=== PATIENT | female | born 1935 | race Caucasian/White ===

== ENCOUNTER 2018-11-25 23:58 | Inpatient (IN) | payer MEDICARE, BC ==
[~2018-11-25] VITALS: Ht 144.8 cm; Wt 44.0 kg
[2018-11-26] VITALS (94 sets, daily range): BP systolic 64–162; BP diastolic 40–93; PULSE 80–127; RESP 13–37; Ht 144.8 cm; Wt 44.0 kg
[2018-11-26] MEDS ORDERED: ALBUTEROL HFA 8 GM INHALER INH PRN (01:00)
[2018-11-26] MEDS ORDERED: ACETAMINOPHEN 650MG/20.3ML CUP PO PRN (01:00)
[2018-11-26] MEDS: ALBUTEROL HFA 8 GM INHALER INH SCH ×6 (01:00→22:12)
[2018-11-26] MEDS ORDERED: LORAZEPAM 2 MG INJ IV PRN (01:00)
[2018-11-26] MEDS ORDERED: ONDANSETRON 4 MG INJ IV PRN (01:00)
[2018-11-26] MEDS ORDERED: morphine 2 MG INJ IV PRN (01:00)
[2018-11-26] MEDS ORDERED: NORepinephrine 8MG/250 ML (PMX 250 ML IV SCH (03:00)
[2018-11-26] MEDS ORDERED: VANCOMYCIN IV PER PHARMACY XX SCH (03:00)
[2018-11-26] MEDS: PROPOFOL 100 ML IV SCH ×2 (03:32→19:27)
[2018-11-26] MEDS: VANCOMYCIN 750 MG (PMX) 250 ML IVPB SCH (04:29)
[2018-11-26] MEDS: PIPER-TAZO 3.375 GM IV (PMX) 100 ML IVPB SCH ×3 (05:40→21:52)
[2018-11-26] MEDS: PANTOPRAZOLE 40 MG INJ IV SCH (05:40)
[2018-11-26] MEDS: METHYLPREDNISOLONE 125 MG INJ IV SCH ×3 (05:40→17:53)
[2018-11-26] MEDS ORDERED: SUCCINYLCHOLINE CHLORIDE 100 MG/5 ML SYG IV ONE (07:00)
[2018-11-26] MEDS ORDERED: ETOMIDATE 20 MG INJ ONE (07:00)
[2018-11-26] MEDS ORDERED: LIDOCAINE 1% (MPF) 5 ML VIAL SC ONE (08:00)
[2018-11-26] MEDS: ENOXAPARIN 40 MG/0.4 ML SYG SC SCH (09:40)
--- NOTE | 2018-11-26 09:54 | CONS ---
Assessment/Plan Assessment/Plan Hospital Course (Demo Recall) Acute on chronic hypoxemic/hypercapnic respiratory failure status post intubation currently on the ventilator Shock: Appears to be septic Pneumonia Pleural effusion History of mitral valve replacement currently functioning normally History of most likely heart block status post permanent pacemaker Encephalopathy Cachexia and malnutrition History of rheumatoid arthritis History of ovarian cancer stage IV Thyroid disorder Acute renal failure Diabetes Recommendations: Vent support to be continued to be managed as per pulmonary Antibiotic management as per internal medicine pulmonary and infectious disease consultants We will try to wean off the Levophed and switch to Maikol-Synephrine drip given her tachycardia We will also try to get more information regarding permanent pacemaker and have it interrogated it has not been done recently. Currently appears to be functioning normally on the telemetry though Diabetic management as per internal medicine GI and DVT prophylaxis recommended Continue with ICU care More than 40 minutes critical care time was for management treatment is critic ally ill patient excluding any procedures NAYLA SAUL MD [facility] Consultation Date/Type/Reason Admit Date/Time Nov 25, 2018 at 23:59 Date of Consultation: Nov 26, 2018 Type of Consult Cardiology Reason for Consultation shock Requesting Provider: SHAUN CHRISTENSEN DO Date/Time of Note DATE: 11/26/18 TIME: 09:44 Hx of Present Illness Interventional cardiology consultation note Chief complaint: Hypercapnic respiratory failure shock hypotension Reason for consult: Shock tachycardia status post permanent pacemaker history of valvular heart disease History of present illness: Thank you for this referral. History was obtained extensive review of the old chart discussion multiple physicians and staff. Patient herself is unable to provide any history to me This is a 3-year-old female who has been in and out of the hospital over the past 3 months. Patient was initially admitted to outside facilities with hypoxemic hypercapnic respiratory failure. She also was treated for pneumonia. She was transferred to [facility] but last night she was noted to be more lethargic and ABG is confirmed hypercapnic respiratory failure. Patient had to be intubated. Brought into the ICU. In the ICU but she was also become more hypotensive and required to be placed on Levophed drip. Patient has been tachycardic and appears to be ventricular paced. Patient is intubated on the vent on Levophed drip unable to provide history to me. Past medical history: history of valvular heart disease status post appear to mitral valve replacement in September 2016 per review of the old chart history of permanent pacemaker placement August 2017. At this point I do not have the information with [employer] history of pneumonia COPD obstructive sleep apnea history of rheumatoid arthritis of ovarian cancer and thyroid disorder Patient also with history of diabetes most recent hemoglobin A1c was 7.1 although family has denied any awareness of history of diabetes Allergies: No known drug allergies Medications were reviewed as per medical reconciliation sheet Family history: No history of early coronary artery disease Social history: Does not smoke or drink Review of system: Patient denies all others except for above-mentioned the best I could obtain. Past Medical History Medications Current Medications Ondansetron HCl (Zofran Inj) 4 mg Q6H PRN IV NAUSEA AND/OR VOMITING; Start 11/26/18 at 01:00 Albuterol (Ventolin Hfa) 4 puff Q4H RESP THERAPY INH Last administered on 11/26/18at 05:00; Admin Dose 4 PUFF; Start 11/26/18 at 01:00 Albuterol (Ventolin Hfa) 4 puff Q2H RESP THERAPY PRN INH SHORTNESS OF BREATH; Start 11/26/18 at 01:00 Methylprednisolone Sodium Succinate (Solu-Medrol) 60 mg Q6 IV Last administered on 11/26/18at 05:40; Admin Dose 60 MG; Start 11/26/18 at 06:00 Acetaminophen (Tylenol Liquid) 650 mg Q6H PRN PO PAIN LEVEL 1-3 OR FEVER; Start 11/26/18 at 01:00 Morphine Sulfate (morphine) 2 mg Q4H PRN IV PAIN LEVEL 7-10; Start 11/26/18 at 01:00 Lorazepam (Ativan) 1 mg Q2H PRN IV ANXIETY; Start 11/26/18 at 01:00 Pantoprazole (Protonix Iv) 40 mg DAILY@06 IV Last administered on 11/26/18at 05:40; Admin Dose 40 MG; Start 11/26/18 at 06:00 Enoxaparin Sodium (Lovenox) 40 mg DAILY SC Last administered on 11/26/18at 09:40; Admin Dose 40 MG; Start 11/26/18 at 09:00 Vancomycin HCl (Vanco Iv Per Pharmacy) VANCOMYCIN PER PHARMACY PER PROTOCOL XX ; Start 11/26/18 at 03:00 Piperacillin Sod/ Tazobactam Sod 100 ml @ 200 mls/hr Q8 IVPB Last administered on 11/26/18at 05:40; Admin Dose 200 MLS/HR; Start 11/26/18 at 06:00 Propofol 100 ml @ 1.32 mls/hr Q12H IV Last administered on 11/26/18at 03:32; Admin Dose 1.32 MLS/HR; Start 11/26/18 at 03:00 Vancomycin/Sodium Chloride 250 ml @ 125 mls/hr Q24H IVPB Last administered on 11/26/18at 04:29; Admin Dose 125 MLS/HR; Start 11/26/18 at 04:00 Sodium Chloride 1,000 ml @ 75 mls/hr [id number] IV ; Start 11/26/18 at 08:00 Norepinephrine 250 ml @ 1.875 mls/ hr TITRATE IV ; Start 11/26/18 at 09:00 Diagnostic Test (Pha) (Accu-Chek) 1 ea 02 XX ; Start 11/27/18 at 02:00 Insulin Aspart (Novolog Insulin Pen) NOVOLOG *MILD* ALGORI... Q4 SC ; Start 11/26/18 at 13:00 Allergies: Coded Allergies: No Known Allergy (Unverified , 11/23/18) Social History Smoking Status: Never smoker Exam/Review of Systems Vital Signs Vitals Vital Signs Date Temp Pulse Resp B/P (MAP) Pulse Ox O2 O2 Flow FiO2 Time Delivery Rate 11/26/18 125 08:00 11/26/18 28 98/66 (77) 96 06:30 11/26/18 100 05:02 11/26/18 97.8 04:00 Intake and Output 11/25/18 11/25/18 11/26/18 1515:00 23:00 07:00 IntakeIntake Total 193 ml OutputOutput Total 90 ml BalanceBalance 103 ml Exam Exam General: Elderly female cachectic looking appears to be older than stated age status post intubation on the vent HEENT: NC/AT. pupils are equal. round. NECK: NO JVD. no stridor. CV: RRR. systolic murmur; no gallop or rubs. PULM: no wheezing + rhonchi more on the right GI: SOFT, NT, ND, no rebound or guarding Extremity: trace B/L LE edema. no clubbing. neuro: Sedated unresponsive Psych: calm rectal: deferred : normal Chest x-ray shows ET and NG tubes in satisfactory position. Increase moderate large right pleural effusion, right middle lobe and basilar consolidation or atelectasis. Echocardiogram was personally reviewed which showed normal LV size ejection fraction of about 45-50% EKG was personally reviewed which shows ventricular paced rhythm Labs Result Diagram: 11/26/18 0120 11/26/18 0120 Results 24hrs Laboratory Tests Test 11/26/18 01:20 11/26/18 01:48 11/26/18 06:21 11/26/18 08:16 White Blood Count 9.8 # Red Blood Count 4.04 L Hemoglobin 11.6 L Hematocrit 39.3 Mean Corpuscular 97.3 Volume Mean Corpuscular 28.7 L Hemoglobin Mean Corpuscular 29.5 L Hemoglobin Concen t Red Cell 15.9 H Distribution Width Platelet Count 255 # Mean Platelet 10.8 H Volume Immature 0.400 Granulocytes % Neutrophils % Segmented 80 H Neutrophils % (Manual) Band Neutrophils 13 H % (Manual) Lymphocytes % Reactive 1 H Lymphocytes % (Manual) Monocytes % Monocytes % 6 (Manual) Eosinophils % Basophils % Nucleated Red 0.0 Blood Cells % Immature 0.040 H Granulocytes # Neutrophils # Neutrophils # 8.0 H (Manual) Band Neutrophils 1.2 H # Lymphocytes # Reactive 0.0 Lymphocytes # Monocytes # Monocytes # 0.5 (Manual) Eosinophils # Basophils # Nucleated Red Blood Cells # Platelet Estimate NORMAL Giant Platelets 2 H Polychromasia 3+ Poikilocytosis 2+ Anisocytosis 1+ Sodium Level 138 Potassium Level 5.4 H Chloride Level 91 L Carbon Dioxide 43 *H Level Anion Gap 4 L Blood Urea 30 H Nitrogen Creatinine 0.69 Est Glomerular Filtrat Rate mL/min Glucose Level 177 Hemoglobin A1c 6.8 H Calcium Level 8.4 Troponin I 0.176 *H 0.175 *H Blood Gas Blood arterial Specimen Source Arterial Blood 11/26/2018 2:05:3 Date Drawn 3 AM Arterial Blood pH 7.362 (Temp corrected) Arterial Blood 83.5 *H pCO2 (Temp correct) Arterial Blood 61.9 L pO2 (Temp corrected) Arterial Blood 46.3 *H HCO3 Arterial Blood 17.1 H Base Excess Arterial Blood 91.3 L Oxygen Saturation Jordi Test ACCEPTAB Arterial Blood Right Radial Gas Puncture Site Arterial 0.3 Blood Carboxyhemo globin Arterial Blood 0.2 Methemoglobin Blood Gas A-a O2 567.6 H Differential Oxyhemoglobin 90.8 L Percent Blood Gas 37.0 Temperature Blood Gas 24.0 Respiration Rate Blood Gas Actual 29 Respiration Rate Blood Gas VENT - AC Modality FiO2 100.0 Blood Gas Tidal 400.0 Volume Blood Gas Lázaro JETER RN Critical Value Read Back Blood Gas Notified Whom Blood Gas 11/26/2018 2:16:5 Notified Time 6 AM Lactic Acid Level 4.3 *H Total Bilirubin 0.9 Direct Bilirubin 0.00 Indirect 0.9 Bilirubin Aspartate Amino 32 Transf (AST/SGOT) Alanine 33 Aminotransferase (ALT/SGPT) Alkaline 88 Phosphatase Total Protein 5.5 L Albumin 2.6 L Test 11/26/18 09:42 Bedside Glucose 100 Medications Medications Current Medications Ondansetron HCl (Zofran Inj) 4 mg Q6H PRN IV NAUSEA AND/OR VOMITING; Start 11/26/18 at 01:00 Albuterol (Ventolin Hfa) 4 puff Q4H RESP THERAPY INH Last administered on 11/26/18at 05:00; Admin Dose 4 PUFF; Start 11/26/18 at 01:00 Albuterol (Ventolin Hfa) 4 puff Q2H RESP THERAPY PRN INH SHORTNESS OF BREATH; Start 11/26/18 at 01:00 Methylprednisolone Sodium Succinate (Solu-Medrol) 60 mg Q6 IV Last administered on 11/26/18at 05:40; Admin Dose 60 MG; Start 11/26/18 at 06:00 Acetaminophen (Tylenol Liquid) 650 mg Q6H PRN PO PAIN LEVEL 1-3 OR FEVER; Start 11/26/18 at 01:00 Morphine Sulfate (morphine) 2 mg Q4H PRN IV PAIN LEVEL 7-10; Start 11/26/18 at 01:00 Lorazepam (Ativan) 1 mg Q2H PRN IV ANXIETY; Start 11/26/18 at 01:00 Pantoprazole (Protonix Iv) 40 mg DAILY@06 IV Last administered on 11/26/18at 05:40; Admin Dose 40 MG; Start 11/26/18 at 06:00 Enoxaparin Sodium (Lovenox) 40 mg DAILY SC Last administered on 11/26/18at 09:40; Admin Dose 40 MG; Start 11/26/18 at 09:00 Vancomycin HCl (Vanco Iv Per Pharmacy) VANCOMYCIN PER PHARMACY PER PROTOCOL XX ; Start 11/26/18 at 03:00 Piperacillin Sod/ Tazobactam Sod 100 ml @ 200 mls/hr Q8 IVPB Last administered on 11/26/18at 05:40; Admin Dose 200 MLS/HR; Start 11/26/18 at 06:00 Propofol 100 ml @ 1.32 mls/hr Q12H IV Last administered on 11/26/18at 03:32; Admin Dose 1.32 MLS/HR; Start 11/26/18 at 03:00 Vancomycin/Sodium Chloride 250 ml @ 125 mls/hr Q24H IVPB Last administered on 11/26/18at 04:29; Admin Dose 125 MLS/HR; Start 11/26/18 at 04:00 Sodium Chloride 1,000 ml @ 75 mls/hr [id number] IV ; Start 11/26/18 at 08:00 Norepinephrine 250 ml @ 1.875 mls/ hr TITRATE IV ; Start 11/26/18 at 09:00 Diagnostic Test (Pha) (Accu-Chek) 1 ea 02 XX ; Start 11/27/18 at 02:00 Insulin Aspart (Novolog Insulin Pen) NOVOLOG *MILD* ALGORI... Q4 SC ; Start 11/26/18 at 13:00 NAYLA SAUL MD Nov 26, 2018 09:54
[2018-11-26] MEDS: NORepinephrine 8MG/250 ML (PMX 250 ML IV SCH (10:46)
[2018-11-26] MEDS: SOD CHLORIDE 0.9% 1,000 ML IV SCH ×2 (10:47→21:20)
[2018-11-26] MEDS: PHENYLephrine 40 MG in DEXTROSE 5% 246 ML IV SCH ×2 (11:21→17:39)
[2018-11-26] MEDS ORDERED: LACTATED RINGER'S 1,000 ML IV ONE (12:00)
[2018-11-26] MEDS: BALSAM PERU/CASTOR OIL 60 GM TUBE TOP SCH ×2 (12:30→21:48)
--- NOTE | 2018-11-26 12:37 | HP ---
DATE OF ADMISSION: 11/25/2018 CHIEF COMPLAINT: Septic shock, respiratory failure. HISTORY OF PRESENT ILLNESS: This is an 83-year-old female with a past medical history of coronary ar radha disease, history of CHF, history of mitral valve replacement, pacemaker placement, history of sl eep apnea, history of ovarian cancer stage IV, who initially presented to an outside hospital with re spiratory distress and shortness of breath. The patient at the outside facility was diagnosed with p neumonia. The patient at that time was on BiPAP. The patient was eventually stabilized at [facility] and then transferred to [facility] for continued care as patient had significa nt decline in her premorbid state. While at [facility], the patient was being seen by pulmonary for hypercapnic hypoxemic respiratory failure. The patient was also on antibiotic therapy for pneumonia. The patient was noted to be stable until last 12 to 14 hours when there was a sudden change in condition and patient became hypotensive, went into further respiratory distress. The pat ient was then subsequently transferred to intensive care unit at [facility], was in tubated, placed on pressor support, IV fluids and continued on broad spectrum antibiotics. Upon my evaluation of the patient at this time, he is currently intubated, obtunded. There have been no reports of any hemoptysis, hematemesis or hematochezia. PAST MEDICAL HISTORY: As stated above, history of coronary artery disease, history of CHF, history o f ovarian cancer, history of obstructive sleep apnea. PAST SURGICAL HISTORY: Status post pacemaker placement, status post valve replacement, status post o varian surgeries. FAMILY HISTORY: Noncontributory. ALLERGIES: NO KNOWN DRUG ALLERGIES. MEDICATIONS: The patient's medications have been reviewed. REVIEW OF SYSTEMS: Unable to do adequate review of systems. The patient is obtunded. Pertinent pos itives stated in HPI, as obtained by reviewing medical records, speaking to hospital staff, otherwise negative. PHYSICAL EXAMINATION: VITAL SIGNS: Blood pressure is 98/66, respiratory rate 28, pulse 111, temperature 98.6. HEENT: Head is normocephalic. Pupils react to light. NECK: Supple. HEART: Tachycardic. LUNGS: Show diminished breath sounds at the base. ABDOMEN: Soft, nontender to palpation. EXTREMITIES: Negative for clubbing, cyanosis. Trace edema. DERMATOLOGIC: No rashes. MUSCULOSKELETAL: No joint effusions. NEUROLOGIC: The patient is obtunded. LABORATORY DATA: Shows sodium 138, potassium 5.4, chloride 91, bicarbonate 43, BUN 30, creatinine 0. 69. Troponin 0.176. The patient's ABG was reviewed. The patient's pCO2 of 83, pH 7.36, bicarbonate of 46. White count 9.8, hemoglobin 11.6, platelet count 255. IMAGING STUDIES: Including chest x-ray was reviewed. ASSESSMENT AND PLAN: This is an 83-year-old female who presents with: 1. Septic shock, underlying source is felt to be secondary to pneumonia. Will rule out other possib ilities including urinary, questionable wounds. Plan is to do a full evaluation. We will check bloo d cultures, urine cultures, check procalcitonin level, lactic acid level. We will continue the patie nt on broad spectrum antibiotics, IV fluids, pressor support to maintain MAP of 65. We will place an ID consult for evaluation. 2. Ventilator-dependent respiratory failure. Vent settings and ABG was reviewed. Continue to monit or. Will follow up with pulmonary. Adjust vent settings as needed. 3. Nonoliguric acute kidney injury with previously normal baseline creatinine. Etiology is secondar y to hemodynamics. Will check UA with microanalysis, urine electrolytes. Continue IV fluids, monito r. 4. Hyperkalemia. Etiology is likely secondary to acute kidney injury, continue IV hydration and mon itor potassium levels closely. 5. Mixed acid base disorder. The patient has a respiratory acidosis and metabolic alkalosis. The p atient's ABG was reviewed. Will continue to monitor. Consider adjusting vent settings. Will repeat ABG levels. 6. Anemia. Monitor hemoglobin and hematocrit levels. 7. Mineral bone disorder. Monitor calcium and phosphorus levels. 8. Elevated troponin. Etiology may be secondary to demand ischemia versus non-ST elevation myocardi al infarction. We will continue to monitor serial troponins. Consider 2D echo. Place a cardiology consult for evaluation. 9. History of sleep apnea. Continue to monitor. 10. History of coronary artery disease. Continue medical management. 11. History of congestive heart failure. Continue current treatment plan. 12. History of arrhythmia, status post pacemaker placement. Continue to monitor. 13. History of mitral valve replacement. 14. Diabetes. Continue Accu-Cheks and sliding scale. 15. History of rheumatoid arthritis. 16. History of ovarian cancer stage IV, currently in remission. The patient is status post chemothe rapy and major debulking surgeries. 17. Hypothyroidism. Continue Synthroid. 18. Gastrointestinal and deep venous thrombosis prophylaxis. Please note I spent over 30 minutes of critical care time with this patient. Dictated By: SHAUN CHRISTENSEN DO NR/NTS Conf#: [id number] DID#: [id number] CC: STEVIE REN MD;*EndCC*
[2018-11-26] MEDS: INSULIN ASPART [NOVOLOG] 3 ML PEN SC SCH ×3 (13:00→21:51)
--- NOTE | 2018-11-26 15:25 | CONS ---
DATE OF ADMISSION: 11/25/2018 DATE OF CONSULTATION: 11/26/2018 TYPE OF CONSULTATION: Infectious disease. REASON FOR CONSULTATION: Antibiotic management. HISTORY OF PRESENT ILLNESS: Savanah Riojas is an 83-year-old female who is unable to provide any hist ory by herself. She has been intermittently in the hospital over the last 3 months. She was initial ly admitted to outside facilities. She was treated for pneumonia. She was transferred to [facility] but last night she was noted to be more lethargic and ABG confirmed hypercapnic respiratory eric lure. The patient had to be intubated, brought to the intensive care unit. She is more hypotensive requiring Levophed drip. She has been tachycardic, appears to be ventricularly paced, so she is intu bated on Levophed. PAST MEDICAL HISTORY: Includes: 1. Valvular heart disease, status post mitral valve replacement in September 2016. Also, history of permanent pacemaker placement 08/2017. She had a history of pneumonia, chronic obstructive pulmonary disease, obstructive sleep apnea, history of rheumatoid arthritis, history of ovarian cancer and als o thyroid disease. She also has a history of diabetes. Her most recent A1c was 7.1. There is no [facility] history of diabetes. PAST MEDICAL HISTORY: Operations as outlined. FAMILY HISTORY: Noncontributory. SOCIAL HISTORY: She does not smoke, drink or abuse drugs. ALLERGIES: NONE TO PENICILLIN, SULFA OR FOODS. PHYSICAL EXAMINATION: GENERAL: The patient is an elderly appearing female who is cachectic, looks older than her stated ag e, status post intubation on a ventilator. SKIN: Without generalized rash. HEENT: Within normal limits. NECK: Supple. LYMPH NODES: None palpable. CHEST: Decreased breath sounds at the bases with occasional rhonchi. HEART: Without murmur or gallop. ABDOMEN: Soft, nontender, without organosplenomegaly or masses. EXTREMITIES: Bilateral lower extremity edema. NEUROLOGIC: The patient is sedated. RECTAL/GENITAL: Deferred. As noted, the patient is sedated on a respirator. Chest x-ray shows an E T tube and NG tube in satisfactory position. She has some moderate large right pleural effusion, rig ht middle lobe and basilar consolidation or atelectasis. Echocardiogram shows an ejection fraction of 45% to 50%. Her white count today is 9.8, H and H 11.6/ 39.3, platelet count 255,000. BUN and creatinine 30/0.69. Her CO2 is 43, so she is alkalotic, potas sium 5.4, sodium 138, chloride 91. She has 80% neutrophils, 13% bands with a white count of 9.8. Sh ella is on vancomycin and Zosyn to which I concur. She has blood cultures pending and urine cultures pe nding. I will dictate my findings to Dr. Agrawal and Dr. Anguiano. Dictated By: SHIRIN PHOENIX MD, JD/NTS Conf#: [id number] DID#: [id number] CC: STEVIE REN MD;*End*
--- NOTE | 2018-11-26 17:34 | RADRPT ---
Vent Rate: 127 bpm RR Interval: 0 msec TN Interval: 146 msec QRS Duration: 140 msec QT Interval: 356 msec QTC Interval: 517 msec P-R-T [place]: 0 - -79 - 91 degrees Electronic ventricular pacemaker Electronically Signed By: David Mattson
[2018-11-27] VITALS (99 sets, daily range): BP systolic 59–136; BP diastolic 38–81; PULSE 64–84; RESP 13–30
[2018-11-27] MEDS: METHYLPREDNISOLONE 125 MG INJ IV SCH ×4 (00:44→17:19)
[2018-11-27] MEDS: INSULIN ASPART [NOVOLOG] 3 ML PEN SC SCH ×6 (00:45→21:26)
[2018-11-27] MEDS: ALBUTEROL HFA 8 GM INHALER INH SCH ×6 (01:04→21:28)
[2018-11-27] MEDS: ACCU-CHEK XX SCH (02:00)
[2018-11-27] MEDS: SOD CHLORIDE 0.9% 1,000 ML IV SCH ×2 (03:09→17:19)
[2018-11-27] MEDS: PHENYLephrine 40 MG in DEXTROSE 5% 246 ML IV SCH ×2 (03:11→14:56)
[2018-11-27] MEDS: PIPER-TAZO 3.375 GM IV (PMX) 100 ML IVPB SCH ×3 (05:39→21:41)
[2018-11-27] MEDS: VANCOMYCIN 750 MG (PMX) 250 ML IVPB SCH (05:39)
[2018-11-27] MEDS: PROPOFOL 100 ML IV SCH ×3 (05:40→21:34)
[2018-11-27] MEDS: PANTOPRAZOLE 40 MG INJ IV SCH (05:40)
--- NOTE | 2018-11-27 06:57 | CONS ---
DATE OF ADMISSION: 11/25/2018 DATE OF CONSULTATION: REASON FOR CONSULTATION: Ventilator management. Thank you, Dr. Agrawal, for this consultation. HISTORY OF PRESENT ILLNESS: This is an unfortunate 83-year-old lady with advanced COPD, chronic hype rcapnic respiratory failure who was being managed at [facility]. Had worsening ment ation, respiratory distress requiring transfer to intensive care unit where she was subsequently intu bated, commenced on vasopressor support. PAST MEDICAL HISTORY: Mitral valve replacement, history of heart block and now with pacemaker, cache destiney, malnutrition, rheumatoid arthritis, stage IV ovarian CA. MEDICATIONS: Per chart. ALLERGIES: NONE. SOCIAL HISTORY: She is a nonsmoker. No alcohol and no history of drug use. FAMILY HISTORY: Noncontributory. REVIEW OF SYSTEMS: A 12-point review of systems currently unable to perform. PHYSICAL EXAMINATION: GENERAL: Thin lady, orally intubated on mechanical ventilation, appears comfortable at rest. VITAL SIGNS: Temperature 98, pulse is 125, blood pressure 98/66, O2 saturation 96%, FiO2 of 100%. NECK: Supple. No JVD or lymphadenopathy. CARDIAC: S1, S2. No added sounds or murmurs. CHEST: Diminished air entry bilaterally. ABDOMEN: Soft, nontender. No guarding or rebound. EXTREMITIES: No cyanosis, clubbing, or edema. NEUROLOGIC: Generalized weakness. LABORATORY DATA: White count 9.8, hemoglobin 11.6, platelets 225,000. BUN 30, creatinine 0.96. DIAGNOSTIC DATA: Chest x-ray shows moderate right pleural effusion versus atelectasis. IMPRESSION: 1. Owkqj-[id number]-pclinus hypercapnic respiratory failure. 2. Likely healthcare-associated pneumonia and loculated effusion. 3. History of mitral valve replacement. 4. Severe sepsis. PLAN: 1. Continue vasopressors. 2. Decrease O2 as tolerated. 3. Decrease FIO2. 4. Antibiotics. 5. CT chest, noncontrast. 6. DVT and GI prophylaxis. Dictated By: JESS SAUCEDO MD SV/NTS Conf#: [id number] DID#: [id number] CC: STEVIE REN MD;*EndCC*
--- NOTE | 2018-11-27 07:46 | CONS ---
Consult Date/Type/Reason Admit Date/Time Nov 25, 2018 at 23:59 Initial Consult Date 11/26/18 Type of Consultation: cv Requesting Provider: SHAUN CHRISTENSEN DO Date/Time of Note DATE: 11/27/18 TIME: 07:42 Subjective Interventional cardiology follow-up progress note Subjective: Case discussed with staff and telemetry was reviewed. Patient remains in sinus rhythm with ventricular pacing. Patient nonverbal status post intubation underwent She continues to be hypotensive and is still on Maikol-Synephrine drip. Currently down to 60 mics She is still on the vent currently on 60% oxygen Objective: General: Elderly female cachectic looking appears to be older than stated age status post intubation on the vent HEENT: NC/AT. pupils are equal. round. NECK: NO JVD. no stridor. CV: RRR. systolic murmur; no gallop or rubs. PULM: no wheezing + rhonchi more on the right GI: SOFT, NT, ND, no rebound or guarding Extremity: trace B/L LE edema. no clubbing. neuro: Sedated Psych: calm rectal: deferred : normal Chest x-ray shows ET and NG tubes in satisfactory position. Increase moderate large right pleural effusion, right middle lobe and basilar consolidation or atelectasis. Echocardiogram was personally reviewed which showed normal LV size ejection fraction of about 45-50% EKG was personally reviewed which shows ventricular paced rhythm Objective Vitals Vital Signs Date Temp Pulse Resp B/P (MAP) Pulse Ox O2 O2 Flow FiO2 Time Delivery Rate 11/27/18 74 14 64/43 (50) 100 06:45 11/27/18 Mechanical 06:00 Ventilator 11/27/18 60 05:47 11/27/18 98.3 04:00 Intake and Output 11/26/18 11/26/18 11/27/18 1515:00 23:00 07:00 IntakeIntake Total 1605.12 ml 1065.437 ml 870.172 ml OutputOutput Total 245 ml 285 ml 210 ml BalanceBalance 1360.12 ml 780.437 ml 660.172 ml Results/Medications Result Diagram: 11/27/18 0430 11/27/18 0430 Results 24 hrs Laboratory Tests Test 11/26/18 08:16 11/26/18 09:42 11/26/18 11:30 11/26/18 11:43 Lactic Acid Level 4.3 *H Total Bilirubin 0.9 Direct Bilirubin 0.00 Indirect 0.9 Bilirubin Aspartate Amino 32 Transf (AST/SGOT) Alanine 33 Aminotransferase (ALT/SGPT) Alkaline 88 Phosphatase Total Protein 5.5 L Albumin 2.6 L Bedside Glucose 100 Blood Gas Blood arterial Specimen Source Arterial Blood 11/26/2018 12:00: Date Drawn 26 PM Arterial Blood pH 7.580 *H (Temp corrected) Arterial Blood 45.6 H pCO2 (Temp correct) Arterial Blood 66.6 L pO2 (Temp corrected) Arterial Blood 41.8 *H HCO3 Arterial Blood 17.9 H Base Excess Arterial Blood 95.5 Oxygen Saturation Jordi Test ACCEPTAB Arterial Blood Left Radial Gas Puncture Site Arterial 0.3 Blood Carboxyhemo globin Arterial Blood 0.1 Methemoglobin Blood Gas A-a O2 311.0 H Differential Oxyhemoglobin 95.1 Percent Blood Gas 37.0 Temperature Blood Gas 20.0 Respiration Rate Blood Gas Actual 20 Respiration Rate Blood Gas VENT - AC Modality FiO2 60.0 Blood Gas Tidal 450.0 Volume Blood Gas Low 5.0 PEEP Setting Blood Gas Sergoi Wood RN Critical Value Read Back Blood Gas Notified Whom Blood Gas 11/26/2018 12:12: Notified Time 32 PM Urine Color CRISTAL Urine Clarity CLOUDY A Urine pH 5.0 Urine Specific 1.024 [place] Urine Ketones NEGATIVE Urine Nitrite NEGATIVE Urine Bilirubin NEGATIVE Urine NEGATIVE Urobilinogen Urine Leukocyte 2+ H Esterase Urine Microscopic 20 H RBC Urine Microscopic > 182 H WBC Urine Bacteria FEW A Urine Yeast MANY A (Budding) Urine Hemoglobin 2+ H Urine Random 73.25 Creatinine Urine Random < 13 L Sodium Urine Glucose NEGATIVE Urine Total 141.0 H Protein Test 11/26/18 13:02 11/26/18 15:10 11/26/18 17:52 11/26/18 21:46 Bedside Glucose 97 141 153 Sodium Level 137 Potassium Level 3.9 Chloride Level 94 L Carbon Dioxide 38 H Level Anion Gap 5 Blood Urea 30 H Nitrogen Creatinine 0.70 Est Glomerular Filtrat Rate mL/min Glucose Level 126 # Calcium Level 7.9 L Total Bilirubin 0.8 Direct Bilirubin 0.00 Indirect 0.8 Bilirubin Aspartate Amino 22 Transf (AST/SGOT) Alanine 29 Aminotransferase (ALT/SGPT) Alkaline 75 Phosphatase Total Protein 4.5 #L Albumin 2.2 L Globulin 2.30 Albumin/Globulin 0.95 Ratio Test 11/27/18 00:45 11/27/18 04:30 11/27/18 05:52 Bedside Glucose 130 186 White Blood Count 10.3 Red Blood Count 3.00 #L Hemoglobin 8.4 #L Hematocrit 27.3 #L Mean Corpuscular 91.0 Volume Mean Corpuscular 28.0 L Hemoglobin Mean Corpuscular 30.8 L Hemoglobin Concen t Red Cell 17.0 H Distribution Width Platelet Count 243 Mean Platelet 10.7 H Volume Immature 0.500 H Granulocytes % Neutrophils % Lymphocytes % Monocytes % Eosinophils % Basophils % Nucleated Red 0.0 Blood Cells % Immature 0.050 H Granulocytes # Neutrophils # Lymphocytes # Monocytes # Eosinophils # Basophils # Nucleated Red Blood Cells # Sodium Level 138 Potassium Level 3.3 L Chloride Level 97 Carbon Dioxide 38 H Level Anion Gap 3 L Blood Urea 27 H Nitrogen Creatinine 0.65 Est Glomerular Filtrat Rate mL/min Glucose Level 136 Calcium Level 7.6 L Phosphorus Level 2.9 Magnesium Level 2.1 Medications Current Medications Ondansetron HCl (Zofran Inj) 4 mg Q6H PRN IV NAUSEA AND/OR VOMITING; Start 11/26/18 at 01:00 Albuterol (Ventolin Hfa) 4 puff Q4H RESP THERAPY INH Last administered on 11/27/18at 05:46; Admin Dose 4 PUFF; Start 11/26/18 at 01:00 Albuterol (Ventolin Hfa) 4 puff Q2H RESP THERAPY PRN INH SHORTNESS OF BREATH; Start 11/26/18 at 01:00 Methylprednisolone Sodium Succinate (Solu-Medrol) 60 mg Q6 IV Last administered on 11/27/18at 05:40; Admin Dose 60 MG; Start 11/26/18 at 06:00 Acetaminophen (Tylenol Liquid) 650 mg Q6H PRN PO PAIN LEVEL 1-3 OR FEVER; Start 11/26/18 at 01:00 Morphine Sulfate (morphine) 2 mg Q4H PRN IV PAIN LEVEL 7-10; Start 11/26/18 at 01:00 Lorazepam (Ativan) 1 mg Q2H PRN IV ANXIETY; Start 11/26/18 at 01:00 Pantoprazole (Protonix Iv) 40 mg DAILY@06 IV Last administered on 11/27/18at 05:40; Admin Dose 40 MG; Start 11/26/18 at 06:00 Enoxaparin Sodium (Lovenox) 40 mg DAILY SC Last administered on 11/26/18at 09:40 ; Admin Dose 40 MG; Start 11/26/18 at 09:00 Vancomycin HCl (Vanco Iv Per Pharmacy) VANCOMYCIN PER PHARMACY PER PROTOCOL XX ; Start 11/26/18 at 03:00 Piperacillin Sod/ Tazobactam Sod 100 ml @ 200 mls/hr Q8 IVPB Last administered on 11/27/18at 05:39; Admin Dose 200 MLS/HR; Start 11/26/18 at 06:00 Propofol 100 ml @ 1.32 mls/hr Q12H IV Last administered on 11/27/18at 05:40; Admin Dose 2.112 MLS/HR; Start 11/26/18 at 03:00 Vancomycin/Sodium Chloride 250 ml @ 125 mls/hr Q24H IVPB Last administered on 11/27/18at 05:39; Admin Dose 125 MLS/HR; Start 11/26/18 at 04:00 Sodium Chloride 1,000 ml @ 75 mls/hr [id number] IV Last administered on 11/27/18at 03:09; Admin Dose 75 MLS/HR; Start 11/26/18 at 08:00 Norepinephrine 250 ml @ 1.875 mls/ hr TITRATE IV Last administered on 11/26/18at 10:46; Admin Dose 37.5 MLS/HR; Start 11/26/18 at 09:00 Diagnostic Test (Pha) (Accu-Chek) 1 ea 02 XX ; Start 11/27/18 at 02:00 Insulin Aspart (Novolog Insulin Pen) NOVOLOG *MILD* ALGORI... Q4 SC Last administered on 11/27/18at 05:57; Admin Dose 2 UNIT; Start 11/26/18 at 13:00 Phenylephrine HCl 40 mg/Dextrose 250 ml @ 37.5 mls/hr TITRATE IV Last administered on 11/27/18at 03:11; Admin Dose 15 MLS/HR; Start 11/26/18 at 11:00 Fentanyl 100 ml @ 2.5 mls/hr TITRATE IV ; Start 11/26/18 at 13:00 IV Flush (NS 10 ml) 10 ml PRN PRN IV IV PROTOCOL; Start 11/26/18 at 15:00 Assessment/Plan Hospital Course (Demo Recall) Acute on chronic hypoxemic/hypercapnic respiratory failure status post intubation currently on the ventilator Shock: Appears to be septic Pneumonia Pleural effusion History of mitral valve replacement currently functioning normally History of most likely heart block status post permanent pacemaker ([employer]) Encephalopathy Cachexia and malnutrition History of rheumatoid arthritis History of ovarian cancer stage IV Thyroid disorder Acute renal failure Diabetes anemia Recommendations: Vent support to be continued to be managed as per pulmonary Antibiotic management as per internal medicine pulmonary and infectious disease consultants cont Maikol-Synephrine drip and titrate down as tolerated. REPLACE Lytes prn Diabetic management as per internal medicine GI and DVT prophylaxis Continue with ICU care NAYLA SAUL MD [facility] NAYLA SAUL MD Nov 27, 2018 07:46
[2018-11-27] MEDS ORDERED: POTASSIUM CHLORIDE 20 MEQ POWDER FOR ORAL SOLN GTB ONE ×2 (08:00)
--- NOTE | 2018-11-27 08:01 | PN ---
DATE: 11/27/2018 SUBJECTIVE: The patient remains critically ill on pressor support. On IV fluids. Urinary output hung s been marginal. No other acute events noted. No hemoptysis, hematemesis or hematochezia. OBJECTIVE: VITAL SIGNS: Blood pressure 64/43, respirations 14, pulse 74, temperature 98.6. I's and O's were re viewed. HEENT: Head is normocephalic. NECK: Supple. HEART: Regular rate. LUNGS: Show diminished breath sounds at the base. ABDOMEN: Soft, nontender to palpation without rebound or guarding. EXTREMITIES: Negative for clubbing, cyanosis. Trace edema. DERMATOLOGIC: No rashes. MUSCULOSKELETAL: No joint effusion. NEUROLOGIC: No change in exam. MEDICATIONS: The patient's medications have been reviewed. MICROBIOLOGY: Reviewed. LABORATORY DATA: Shows sodium 138, potassium 3.3, BUN 27, creatinine 0.65. White count 10.3, hemogl obin 8.4, platelet count 243. Urinalysis shows FENa less than 1%, protein creatinine ratio approxima tely 2 grams per gram of creatinine. ABG was reviewed. IMAGING STUDIES: Chest x-ray was reviewed, shows moderate right pleural effusion, right lower base c onsolidation atelectasis. ASSESSMENT AND PLAN: 1. Septic shock, etiology is felt to be secondary to pneumonia. Other sources include possible urin jeannie, questionable wounds. The patient currently is in critical condition. The plan is to continue m edical management. Continue pressor support, maintain MAP of 65. Continue IV fluids, broad spectrum antibiotics. Wean off pressors as tolerated. We will follow up procalcitonin level. 2. Ventilator dependent respiratory failure. Vent settings and ABG was reviewed. Continue to monit or. Followup with pulmonary. 3. Nonoliguric acute kidney injury. Etiology of acute kidney injury is secondary to hemodynamics. Urinalysis was reviewed. The patient's urine electrolytes were reviewed. The patient is noted to hung ve a FENa less than 1%, which can be seen in the setting of sepsis and septic acute kidney injury. W e will continue to monitor. 4. Hyperkalemia, resolved. Continue to monitor. 5. Mixed acid base disorder. The patient has a metabolic alkalosis and a respiratory alkalosis. We will continue to monitor. Vent settings have been adjusted. 6. Anemia. Monitor hemoglobin and hematocrit levels. 7. Elevated troponin. Etiology may be non-ST elevation myocardial infarction type 2. Continue to m onitor. Follow up with cardiology. 8. History of sleep apnea. Continue to monitor. 9. Coronary artery disease. Continue medical management. 10. History of congestive heart failure. The patient is currently hypovolemic. Continue to monitor . 11. History of arrhythmia, status post pacemaker. Continue current treatment plan. 12. History of mitral valve replacement. 13. Diabetes. Continue current insulin regimen. 14. History of ovarian cancer stage IV, currently in remission. Continue to observe. 15. Hypothyroidism. Continue Synthroid. 16. History of rheumatoid arthritis. 17. Gastrointestinal and deep vein thrombosis prophylaxis. Please note I spent over 30 minutes of critical care time with this patient. Dictated By: SHAUN CHRISTENSEN DO NR/NTS Conf#: [id number] DID#: [id number] CC: STEVIE REN MD; JESS SAUCEDO MD;*End*
[2018-11-27] MEDS: ENOXAPARIN 40 MG/0.4 ML SYG SC SCH (08:23)
[2018-11-27] MEDS: BALSAM PERU/CASTOR OIL 60 GM TUBE TOP SCH ×2 (08:31→21:33)
--- NOTE | 2018-11-27 11:31 | CONS ---
Consult Date/Type/Reason Admit Date/Time Nov 25, 2018 at 23:59 Initial Consult Date 11/26/18 Type of Consult Pulmonary Requesting Provider: SHAUN CHRISTENSEN DO Date/Time of Note DATE: 11/27/18 TIME: 11:29 Subjective Patient intubated sedated appears comfortable at rest. Intermittent agitation off sedation. Objective Vital Signs Date Temp Pulse Resp B/P (MAP) Pulse Ox O2 O2 Flow FiO2 Time Delivery Rate 11/27/18 75 14 125/73 09:30 (90) 11/27/18 100 60 09:00 11/27/18 Mechanical 09:00 Ventilator 11/27/18 98.3 04:00 Intake and Output 11/26/18 11/26/18 11/27/18 1515:00 23:00 07:00 IntakeIntake Total 1605.12 ml 1065.437 ml 1070.172 ml OutputOutput Total 245 ml 285 ml 210 ml BalanceBalance 1360.12 ml 780.437 ml 860.172 ml Exam PHYSICAL EXAMINATION: GENERAL: Thin lady, orally intubated on mechanical ventilation, appears comfortable at rest. VITAL SIGNS: NECK: Supple. No JVD or lymphadenopathy. CARDIAC: S1, S2. No added sounds or murmurs. CHEST: Diminished air entry bilaterally. ABDOMEN: Soft, nontender. No guarding or rebound. EXTREMITIES: No cyanosis, clubbing, or edema. NEUROLOGIC: Generalized weakness. Vent Setting Ventilator Support Mode: AC Fraction of Inspired Oxygen pe: 60 Positive End Expiratory Pressu: 5.0 Results/Medications Result Diagram: 11/27/18 0430 11/27/18 0430 Results 24 hrs Laboratory Tests Test 11/26/18 11:30 11/26/18 11:43 11/26/18 13:02 11/26/18 15:10 Blood Gas Blood arterial Specimen Source Arterial Blood 11/26/2018 12:00: Date Drawn 26 PM Arterial Blood pH 7.580 *H (Temp corrected) Arterial Blood 45.6 H pCO2 (Temp correct) Arterial Blood 66.6 L pO2 (Temp corrected) Arterial Blood 41.8 *H HCO3 Arterial Blood 17.9 H Base Excess Arterial Blood 95.5 Oxygen Saturation Jordi Test ACCEPTAB Arterial Blood Left Radial Gas Puncture Site Arterial 0.3 Blood Carboxyhemo globin Arterial Blood 0.1 Methemoglobin Blood Gas A-a O2 311.0 H Differential Oxyhemoglobin 95.1 Percent Blood Gas 37.0 Temperature Blood Gas 20.0 Respiration Rate Blood Gas Actual 20 Respiration Rate Blood Gas VENT - AC Modality FiO2 60.0 Blood Gas Tidal 450.0 Volume Blood Gas Low 5.0 PEEP Setting Blood Gas Sergio Wood RN Critical Value Read Back Blood Gas TM Notified Whom Blood Gas 11/26/2018 12:12: Notified Time 32 PM Urine Color CRISTAL Urine Clarity CLOUDY A Urine pH 5.0 Urine Specific 1.024 [place] Urine Ketones NEGATIVE Urine Nitrite NEGATIVE Urine Bilirubin NEGATIVE Urine NEGATIVE Urobilinogen Urine Leukocyte 2+ H Esterase Urine Microscopic 20 H RBC Urine Microscopic > 182 H WBC Urine Bacteria FEW A Urine Yeast MANY A (Budding) Urine Hemoglobin 2+ H Urine Random 73.25 Creatinine Urine Random < 13 L Sodium Urine Glucose NEGATIVE Urine Total 141.0 H Protein Bedside Glucose 97 Sodium Level 137 Potassium Level 3.9 Chloride Level 94 L Carbon Dioxide 38 H Level Anion Gap 5 Blood Urea 30 H Nitrogen Creatinine 0.70 Est Glomerular Filtrat Rate mL/min Glucose Level 126 # Calcium Level 7.9 L Total Bilirubin 0.8 Direct Bilirubin 0.00 Indirect 0.8 Bilirubin Aspartate Amino 22 Transf (AST/SGOT) Alanine 29 Aminotransferase (ALT/SGPT) Alkaline 75 Phosphatase Total Protein 4.5 #L Albumin 2.2 L Globulin 2.30 Albumin/Globulin 0.95 Ratio Test 11/26/18 17:52 11/26/18 21:46 11/27/18 00:45 11/27/18 04:30 Bedside Glucose 141 153 130 White Blood Count 10.3 Red Blood Count 3.00 #L Hemoglobin 8.4 #L Hematocrit 27.3 #L Mean Corpuscular 91.0 Volume Mean Corpuscular 28.0 L Hemoglobin Mean Corpuscular 30.8 L Hemoglobin Concen t Red Cell 17.0 H Distribution Width Platelet Count 243 Mean Platelet 10.7 H Volume Immature 0.500 H Granulocytes % Neutrophils % Segmented 68 Neutrophils % (Manual) Band Neutrophils 28 H % (Manual) Lymphocytes % Lymphocytes % 1 L (Manual) Monocytes % Monocytes % 3 (Manual) Eosinophils % Basophils % Nucleated Red 0.0 Blood Cells % Immature 0.050 H Granulocytes # Neutrophils # Neutrophils # 7.3 (Manual) Band Neutrophils 2.8 H # Lymphocytes 0.1 L (Manual) Lymphocytes # Monocytes # Monocytes # 0.3 (Manual) Eosinophils # Basophils # Nucleated Red Blood Cells # Toxic Granulation 2+ Platelet Estimate NORMAL Giant Platelets 1 H Poikilocytosis 1+ Spherocytes 1+ Sodium Level 138 Potassium Level 3.3 L Chloride Level 97 Carbon Dioxide 38 H Level Anion Gap 3 L Blood Urea 27 H Nitrogen Creatinine 0.65 Est Glomerular Filtrat Rate mL/min Glucose Level 136 Calcium Level 7.6 L Phosphorus Level 2.9 Magnesium Level 2.1 Test 11/27/18 05:52 11/27/18 08:21 Bedside Glucose 186 167 Medications Current Medications Ondansetron HCl (Zofran Inj) 4 mg Q6H PRN IV NAUSEA AND/OR VOMITING; Start 11/26/18 at 01:00 Albuterol (Ventolin Hfa) 4 puff Q4H RESP THERAPY INH Last administered on 11/27/18at 09:02; Admin Dose 4 PUFF; Start 11/26/18 at 01:00 Albuterol (Ventolin Hfa) 4 puff Q2H RESP THERAPY PRN INH SHORTNESS OF BREATH; Start 11/26/18 at 01:00 Methylprednisolone Sodium Succinate (Solu-Medrol) 60 mg Q6 IV Last administered on 11/27/18at 05:40; Admin Dose 60 MG; Start 11/26/18 at 06:00 Acetaminophen (Tylenol Liquid) 650 mg Q6H PRN PO PAIN LEVEL 1-3 OR FEVER; Start 11/26/18 at 01:00 Morphine Sulfate (morphine) 2 mg Q4H PRN IV PAIN LEVEL 7-10; Start 11/26/18 at 01:00 Lorazepam (Ativan) 1 mg Q2H PRN IV ANXIETY; Start 11/26/18 at 01:00 Pantoprazole (Protonix Iv) 40 mg DAILY@06 IV Last administered on 11/27/18at 05:40; Admin Dose 40 MG; Start 11/26/18 at 06:00 Enoxaparin Sodium (Lovenox) 40 mg DAILY SC Last administered on 11/27/18at 08:23; Admin Dose 40 MG; Start 11/26/18 at 09:00 Vancomycin HCl (Vanco Iv Per Pharmacy) VANCOMYCIN PER PHARMACY PER PROTOCOL XX ; Start 11/26/18 at 03:00 Piperacillin Sod/ Tazobactam Sod 100 ml @ 200 mls/hr Q8 IVPB Last administered on 11/27/18at 05:39; Admin Dose 200 MLS/HR; Start 11/26/18 at 06:00 Propofol 100 ml @ 1.32 mls/hr Q12H IV Last administered on 11/27/18at 05:40; Admin Dose 2.112 MLS/HR; Start 11/26/18 at 03:00 Vancomycin/Sodium Chloride 250 ml @ 125 mls/hr Q24H IVPB Last administered on 11/27/18at 05:39; Admin Dose 125 MLS/HR; Start 11/26/18 at 04:00 Sodium Chloride 1,000 ml @ 75 mls/hr [id number] IV Last administered on 11/27/18at 03:09; Admin Dose 75 MLS/HR; Start 11/26/18 at 08:00 Norepinephrine 250 ml @ 1.875 mls/ hr TITRATE IV Last administered on 11/26/18at 10:46; Admin Dose 37.5 MLS/HR; Start 11/26/18 at 09:00 Diagnostic Test (Pha) (Accu-Chek) 1 ea 02 XX ; Start 11/27/18 at 02:00 Insulin Aspart (Novolog Insulin Pen) NOVOLOG *MILD* ALGORI... Q4 SC Last administered on 11/27/18at 08:28; Admin Dose 1 UNIT; Start 11/26/18 at 13:00 Phenylephrine HCl 40 mg/Dextrose 250 ml @ 37.5 mls/hr TITRATE IV Last administered on 11/27/18at 03:11; Admin Dose 15 MLS/HR; Start 11/26/18 at 11:00 Fentanyl 100 ml @ 2.5 mls/hr TITRATE IV ; Start 11/26/18 at 13:00 IV Flush (NS 10 ml) 10 ml PRN PRN IV IV PROTOCOL; Start 11/26/18 at 15:00 Assessment/Plan Hospital Course (Demo Recall) IMPRESSION: 1. [id number]-[id number] hypercapnic respiratory failure. 2. Likely healthcare-associated pneumonia and loculated effusion. 3. History of mitral valve replacement. 4. Septic shock likely secondary to above PLAN: 1. Continue vasopressors. Titrate to keep map greater than 65 2. Decrease O2 as tolerated. 3. Decrease PEEP 4. Antibiotics. 5. CT chest, findings noted bilateral infiltrates chronic lung disease 6. DVT and GI prophylaxis. 7. Tube feeding as tolerated Critical care time 40 minutes. JESS SAUCEDO MD, [facility] Nov 27, 2018 11:31
--- NOTE | 2018-11-27 14:39 | CONS ---
Assessment/Plan Assessment/Plan Hospital Course (Demo Recall) Patient is intubated sedated on Levophed drip, in no distress, status post fever of 101.6 yesterday WBC 10.3 platelets 243 bands 28 BUN 27 creatinine 0.65 Microbiology: Blood cultures preliminary negative urine culture growing Nicole albicans CT chest revealed bilateral bronchiolitis and bronchopneumonia greater on the right. Please see full report in the chart Indwelling: Endotracheal tube, NG tube, Das, right upper extremity PICC line placed yesterday Antimicrobials: Vancomycin, Zosyn Physical examination: This is a chronically ill-appearing wasted elderly woman who is intubated sedated in no distress. Head atraumatic normocephalic neck is supple chest rise symmetrical breath sounds diminished bases heart: S1-S2 abdomen soft bowel sounds present extremities without cyanosis Assessment: 1. Severe sepsis with shock 2. Acute on chronic hypoxemic respiratory failure 3. Bilateral pneumonia 4. Nicole albicans UTI 5. Coronary artery disease with a history of mitral valve replacement Plan: Add fluconazole, send sputum culture, continue antibiotics, vent support per pulmonary follow cardiology recommendations Consultation Date/Type/Reason Admit Date/Time Nov 25, 2018 at 23:59 Initial Consult Date 11/26/18 Type of Consult id Requesting Provider: SHAUN CHRISTENSEN DO Date/Time of Note DATE: 11/27/18 TIME: 14:39 Exam/Review of Systems Exam Vitals Vital Signs Date Temp Pulse Resp B/P (MAP) Pulse Ox O2 O2 Flow FiO2 Time Delivery Rate 11/27/18 64 12:00 11/27/18 14 109/62 11:30 (78) 11/27/18 100 60 11:00 11/27/18 Mechanical 11:00 Ventilator 11/27/18 98.3 04:00 Intake and Output 11/26/18 11/26/18 11/27/18 1515:00 23:00 07:00 IntakeIntake Total 1605.12 ml 1065.437 ml 1070.172 ml OutputOutput Total 245 ml 285 ml 210 ml BalanceBalance 1360.12 ml 780.437 ml 860.172 ml Results Result Diagram: 11/27/18 0430 11/27/18 0430 Results 24hrs Laboratory Tests Test 11/26/18 15:10 11/26/18 17:52 11/26/18 21:46 11/27/18 00:45 Sodium Level 137 Potassium Level 3.9 Chloride Level 94 L Carbon Dioxide Level 38 H Anion Gap 5 Blood Urea Nitrogen 30 H Creatinine 0.70 Est Glomerular Filtrat Rate mL/min Glucose Level 126 # Calcium Level 7.9 L Total Bilirubin 0.8 Direct Bilirubin 0.00 Indirect Bilirubin 0.8 Aspartate Amino 22 Transf (AST/SGOT) Alanine 29 Aminotransferase (AL T/SGPT) Alkaline Phosphatase 75 Total Protein 4.5 #L Albumin 2.2 L Globulin 2.30 Albumin/Globulin 0.95 Ratio Bedside Glucose 141 153 130 Test 11/27/18 04:30 11/27/18 05:52 11/27/18 08:21 11/27/18 12:19 White Blood Count 10.3 Red Blood Count 3.00 #L Hemoglobin 8.4 #L Hematocrit 27.3 #L Mean Corpuscular 91.0 Volume Mean Corpuscular 28.0 L Hemoglobin Mean Corpuscular 30.8 L Hemoglobin Concent Red Cell 17.0 H Distribution Width Platelet Count 243 Mean Platelet Volume 10.7 H Immature 0.500 H Granulocytes % Neutrophils % Segmented 68 Neutrophils % (Manual) Band Neutrophils % 28 H (Manual) Lymphocytes % Lymphocytes % 1 L (Manual) Monocytes % Monocytes % (Manual) 3 Eosinophils % Basophils % Nucleated Red Blood 0.0 Cells % Immature 0.050 H Granulocytes # Neutrophils # Neutrophils # 7.3 (Manual) Band Neutrophils # 2.8 H Lymphocytes (Manual) 0.1 L Lymphocytes # Monocytes # Monocytes # (Manual) 0.3 Eosinophils # Basophils # Nucleated Red Blood Cells # Toxic Granulation 2+ Platelet Estimate NORMAL Giant Platelets 1 H Poikilocytosis 1+ Spherocytes 1+ Sodium Level 138 Potassium Level 3.3 L Chloride Level 97 Carbon Dioxide Level 38 H Anion Gap 3 L Blood Urea Nitrogen 27 H Creatinine 0.65 Est Glomerular Filtrat Rate mL/min Glucose Level 136 Calcium Level 7.6 L Phosphorus Level 2.9 Magnesium Level 2.1 Bedside Glucose 186 167 186 Medications Medication Current Medications Ondansetron HCl (Zofran Inj) 4 mg Q6H PRN IV NAUSEA AND/OR VOMITING; Start 11/26/18 at 01:00 Albuterol (Ventolin Hfa) 4 puff Q4H RESP THERAPY INH Last administered on 11/27/18at 13:22; Admin Dose 4 PUFF; Start 11/26/18 at 01:00 Albuterol (Ventolin Hfa) 4 puff Q2H RESP THERAPY PRN INH SHORTNESS OF BREATH; Start 11/26/18 at 01:00 Methylprednisolone Sodium Succinate (Solu-Medrol) 60 mg Q6 IV Last administered on 11/27/18at 12:20; Admin Dose 60 MG; Start 11/26/18 at 06:00 Acetaminophen (Tylenol Liquid) 650 mg Q6H PRN PO PAIN LEVEL 1-3 OR FEVER; St art 11/26/18 at 01:00 Morphine Sulfate (morphine) 2 mg Q4H PRN IV PAIN LEVEL 7-10; Start 11/26/18 at 01:00 Lorazepam (Ativan) 1 mg Q2H PRN IV ANXIETY; Start 11/26/18 at 01:00 Enoxaparin Sodium (Lovenox) 40 mg DAILY SC Last administered on 11/27/18at 08:23; Admin Dose 40 MG; Start 11/26/18 at 09:00 Vancomycin HCl (Vanco Iv Per Pharmacy) VANCOMYCIN PER PHARMACY PER PROTOCOL XX ; Start 11/26/18 at 03:00 Piperacillin Sod/ Tazobactam Sod 100 ml @ 200 mls/hr Q8 IVPB Last administered on 11/27/18at 13:44; Admin Dose 200 MLS/HR; Start 11/26/18 at 06:00 Propofol 100 ml @ 1.32 mls/hr Q12H IV Last administered on 11/27/18at 05:40; Admin Dose 2.112 MLS/HR; Start 11/26/18 at 03:00 Vancomycin/Sodium Chloride 250 ml @ 125 mls/hr Q24H IVPB Last administered on 11/27/18at 05:39; Admin Dose 125 MLS/HR; Start 11/26/18 at 04:00 Sodium Chloride 1,000 ml @ 75 mls/hr [id number] IV Last administered on 11/27/18at 03:09; Admin Dose 75 MLS/HR; Start 11/26/18 at 08:00 Norepinephrine 250 ml @ 1.875 mls/ hr TITRATE IV Last administered on 11/26/18at 10:46; Admin Dose 37.5 MLS/HR; Start 11/26/18 at 09:00 Diagnostic Test (Pha) (Accu-Chek) 1 ea 02 XX ; Start 11/27/18 at 02:00 Insulin Aspart (Novolog Insulin Pen) NOVOLOG *MILD* ALGORI... Q4 SC Last administered on 11/27/18at 12:26; Admin Dose 2 UNIT; Start 11/26/18 at 13:00 Phenylephrine HCl 40 mg/Dextrose 250 ml @ 37.5 mls/hr TITRATE IV Last administered on 11/27/18at 03:11; Admin Dose 15 MLS/HR; Start 11/26/18 at 11:00 Fentanyl 100 ml @ 2.5 mls/hr TITRATE IV ; Start 11/26/18 at 13:00 IV Flush (NS 10 ml) 10 ml PRN PRN IV IV PROTOCOL; Start 11/26/18 at 15:00 Lansoprazole (Prevacid) 30 mg DAILY@06 GTB ; Start 11/28/18 at 06:00 Miscellaneous Information (*Rx Drug Level Order Reminder*) VANCOMYCIN TROUGH AT 0300 0300 XX ; Start 11/28/18 at 03:00; Stop 11/28/18 at 03:01 JODY BOYD NP Nov 27, 2018 14:39
[2018-11-27] MEDS: FLUCONAZOLE 100 MG TAB PO SCH (15:14)
[2018-11-27] MEDS: FENTAnyl (DRIP) 1000 mcg/100mL 100 ML IV SCH (15:58)
[2018-11-28] VITALS (108 sets, daily range): BP systolic 83–142; BP diastolic 49–91; PULSE 61–78; RESP 13–33
[2018-11-28] MEDS: METHYLPREDNISOLONE 125 MG INJ IV SCH ×4 (00:04→18:20)
[2018-11-28] MEDS: ALBUTEROL HFA 8 GM INHALER INH SCH ×6 (01:00→21:55)
[2018-11-28] MEDS: INSULIN ASPART [NOVOLOG] 3 ML PEN SC SCH ×6 (01:39→21:20)
[2018-11-28] MEDS: ACCU-CHEK XX SCH (02:00)
[2018-11-28] MEDS: VANCOMYCIN 750 MG (PMX) 250 ML IVPB SCH ×2 (04:27→16:06)
[2018-11-28] MEDS: PHENYLephrine 40 MG in DEXTROSE 5% 246 ML IV SCH (04:47)
[2018-11-28] MEDS: LANSOPRAZOLE 30 MG CAP GTB SCH (05:59)
[2018-11-28] MEDS: SOD CHLORIDE 0.9% 1,000 ML IV SCH ×2 (06:11→10:18)
[2018-11-28] MEDS: PIPER-TAZO 3.375 GM IV (PMX) 100 ML IVPB SCH ×3 (06:28→21:21)
--- NOTE | 2018-11-28 07:45 | CONS ---
Consult Date/Type/Reason Admit Date/Time Nov 25, 2018 at 23:59 Initial Consult Date 11/26/18 Type of Consultation: cv Requesting Provider: SHAUN CHRISTENSEN DO Date/Time of Note DATE: 11/28/18 TIME: 07:42 Subjective Interventional cardiology follow-up progress note Subjective: Case discussed with staff and telemetry was reviewed. Patient remains in sinus rhythm with ventricular pacing. HR is much improved now Patient nonverbal status post intubation vent dep She continues to be hypotensive and is still on Maikol-Synephrine drip. Currently down to 20 mics She is still on the vent currently on 35% oxygen Objective: General: Elderly female cachectic looking appears to be older than stated age status post intubation on the vent HEENT: NC/AT. pupils are equal. round. NECK: NO JVD. no stridor. CV: RRR. systolic murmur; no gallop or rubs. PULM: no wheezing + rhonchi more on the right GI: SOFT, NT, ND, no rebound or guarding Extremity: trace B/L LE edema. no clubbing. neuro: opens her eyes Psych: calm rectal: deferred : normal Chest x-ray shows ET and NG tubes in satisfactory position. Increase moderate large right pleural effusion, right middle lobe and basilar consolidation or atelectasis. Echocardiogram was personally reviewed which showed normal LV size ejection fraction of about 45-50% EKG was personally reviewed which shows ventricular paced rhythm CT Chest 11/27: 1. Findings compatible with bilateral bronchiolitis and bronchopneumonia, greater on the right, significantly increased when compared to the prior CT. Mil d bilateral pleural effusions, grossly stable. 2. Stable mild cardiomegaly. Coronary arterial and aortic atherosclerotic calcifications. 3. Lines and tubes in place, as above. 4. No evidence of mass or lymphadenopath Objective Vitals Vital Signs Date Temp Pulse Resp B/P (MAP) Pulse Ox O2 O2 Flow FiO2 Time Delivery Rate 11/28/18 61 14 90/53 (65) 96 Mechanical 07:00 Ventilator 11/28/18 35 05:07 11/28/18 97.9 04:45 Intake and Output 11/27/18 11/27/18 11/28/18 1515:00 23:00 07:00 IntakeIntake Total 1180 ml 1130 ml 1070 ml OutputOutput Total 190 ml 210 ml 285 ml BalanceBalance 990 ml 920 ml 785 ml Results/Medications Result Diagram: 11/28/189 11/28/188 Results 24 hrs Laboratory Tests Test 11/27/18 08:21 11/27/18 12:19 11/27/18 17:18 11/27/18 21:21 Bedside Glucose 167 186 269 H 216 Test 11/28/18 01:34 11/28/18 03:18 11/28/18 03:19 11/28/18 04:52 Bedside Glucose 226 H 245 H Sodium Level 138 Potassium Level 3.6 Chloride Level 100 Carbon Dioxide Level 36 H Anion Gap 2 L Blood Urea Nitrogen 24 H Creatinine 0.49 Est Glomerular Filtrat Rate mL/min Glucose Level 238 #H Calcium Level 7.5 L Phosphorus Level 2.1 L Magnesium Level 2.1 Vancomycin Level 5.2 L Trough White Blood Count 11.6 H Red Blood Count 3.02 L Hemoglobin 8.6 L Hematocrit 27.8 L Mean Corpuscular 92.1 Volume Mean Corpuscular 28.5 L Hemoglobin Mean Corpuscular 30.9 L Hemoglobin Concent Red Cell 17.2 H Distribution Width Platelet Count 243 Mean Platelet Volume 10.9 H Immature 0.400 Granulocytes % Neutrophils % Segmented 90 H Neutrophils % (Manual) Band Neutrophils % 8 H (Manual) Lymphocytes % Monocytes % Monocytes % (Manual) 2 Eosinophils % Basophils % Nucleated Red Blood 1 H Cells % Immature 0.050 H Granulocytes # Neutrophils # Neutrophils # 10.5 H (Manual) Band Neutrophils # 0.9 H Lymphocytes # Monocytes # Monocytes # (Manual) 0.2 L Eosinophils # Basophils # Nucleated Red Blood Cells # Platelet Estimate NORMAL Giant Platelets 2 H Polychromasia 1+ Poikilocytosis 2+ Medications Current Medications Ondansetron HCl (Zofran Inj) 4 mg Q6H PRN IV NAUSEA AND/OR VOMITING; Start 11/26/18 at 01:00 Albuterol (Ventolin Hfa) 4 puff Q4H RESP THERAPY INH Last administered on 11/28/18at 05:06; Admin Dose 4 PUFF; Start 11/26/18 at 01:00 Albuterol (Ventolin Hfa) 4 puff Q2H RESP THERAPY PRN INH SHORTNESS OF BREATH Last administered on 11/28/18at 01:53; Admin Dose 4 PUFF; Start 11/26/18 at 01:00 Methylprednisolone Sodium Succinate (Solu-Medrol) 60 mg Q6 IV Last administered on 11/28/18at 05:59; Admin Dose 60 MG; Start 11/26/18 at 06:00 Acetaminophen (Tylenol Liquid) 650 mg Q6H PRN PO PAIN LEVEL 1-3 OR FEVER; Start 11/26/18 at 01:00 Morphine Sulfate (morphine) 2 mg Q4H PRN IV PAIN LEVEL 7-10; Start 11/26/18 at 01:00 Lorazepam (Ativan) 1 mg Q2H PRN IV ANXIETY; Start 11/26/18 at 01:00 Enoxaparin Sodium (Lovenox) 40 mg DAILY SC Last administered on 11/27/18at 08:23; Admin Dose 40 MG; Start 11/26/18 at 09:00 Vancomycin HCl (Vanco Iv Per Pharmacy) VANCOMYCIN PER PHARMACY PER PROTOCOL XX ; Start 11/26/18 at 03:00 Piperacillin Sod/ Tazobactam Sod 100 ml @ 200 mls/hr Q8 IVPB Last administered on 11/28/18at 06:28; Admin Dose 200 MLS/HR; Start 11/26/18 at 06:00 Propofol 100 ml @ 1.32 mls/hr Q12H IV Last administered on 11/27/18at 21:34; Admin Dose 3.9 MLS/HR; Start 11/26/18 at 03:00 Sodium Chloride 1,000 ml @ 75 mls/hr [id number] IV Last administered on 11/28/18at 06:11; Admin Dose 75 MLS/HR; Start 11/26/18 at 08:00 Norepinephrine 250 ml @ 1.875 mls/ hr TITRATE IV Last administered on 11/26/18at 10:46; Admin Dose 37.5 MLS/HR; Start 11/26/18 at 09:00 Diagnostic Test (Pha) (Accu-Chek) 1 ea 02 XX ; Start 11/27/18 at 02:00 Insulin Aspart (Novolog Insulin Pen) NOVOLOG *MILD* ALGORI... Q4 SC Last administered on 11/28/18at 04:57; Admin Dose 3 UNIT; Start 11/26/18 at 13:00 Phenylephrine HCl 40 mg/Dextrose 250 ml @ 37.5 mls/hr TITRATE IV Last administered on 11/28/18 04:47; Admin Dose 30 MLS/HR; Start 11/26/18 at 11:00 Fentanyl 100 ml @ 2.5 mls/hr TITRATE IV Last administered on 11/27/18at 15:58; Admin Dose 2.5 MLS/HR; Start 11/26/18 at 13:00 IV Flush (NS 10 ml) 10 ml PRN PRN IV IV PROTOCOL; Start 11/26/18 at 15:00 Lansoprazole (Prevacid) 30 mg DAILY@06 GTB Last administered on 11/28/18at 05:59; Admin Dose 30 MG; Start 11/28/18 at 06:00 Fluconazole (Diflucan) 100 mg DAILY PO Last administered on 11/27/18at 15:14; Admin Dose 100 MG; Start 11/27/18 at 15:00 Vancomycin/Sodium Chloride 250 ml @ 125 mls/hr Q12H IVPB Last administered on 11/28/18 04:27; Admin Dose 125 MLS/HR; Start 11/28/18 at 04:00 Assessment/Plan Hospital Course (Demo Recall) Acute on chronic hypoxemic/hypercapnic respiratory failure status post intubation currently on the ventilator Shock: Appears to be septic Pneumonia Pleural effusion History of mitral valve replacement currently functioning normally History of most likely heart block status post permanent pacemaker ([employer]) Encephalopathy Cachexia and malnutrition History of rheumatoid arthritis History of ovarian cancer stage IV Thyroid disorder Acute renal failure Diabetes anemia Recommendations: Vent support to be continued to be managed as per pulmonary. Antibiotic management as per internal medicine pulmonary and infectious disease consultants cont Maikol-Synephrine drip and titrate off if tolerated. REPLACE Lytes prn Diabetic management as per internal medicine GI and DVT prophylaxis Continue with ICU care NAYLA SAUL MD [facility] NAYLA SAUL MD Nov 28, 2018 07:45
[2018-11-28] MEDS ORDERED: POTASSIUM CHLORIDE 20 MEQ POWDER FOR ORAL SOLN NGT ONE (08:00)
--- NOTE | 2018-11-28 08:18 | PN ---
DATE: 11/28/2018 SUBJECTIVE: The patient remains critically ill on pressor support. The patient's urinary output has been marginal. There have been no reports of any hemoptysis, hematemesis, or hematochezia. Please note I spoke with the patient's family at bedside yesterday. Answering all questions. OBJECTIVE: VITAL SIGNS: Blood pressure is 90/53, respirations 14, pulse 61, temperature 98.6. HEENT: Head is normocephalic. NECK: Supple. HEART: Regular rate. LUNGS: Show diminished breath sounds at the base. ABDOMEN: Soft, nontender to palpation. No rebound or guarding. EXTREMITIES: Negative for clubbing, cyanosis, positive edema. DERMATOLOGIC: No rashes. MUSCULOSKELETAL: No joint effusion. NEUROLOGIC: No change in exam. MEDICATIONS: Reviewed. LABORATORY DATA: Shows sodium 138, potassium 3.6, bicarbonate 36, BUN 24, creatinine 0.49, glucose 2 38. Phosphorus is 2.1. The patient's ABG was reviewed. White count 11.6, hemoglobin 8.6, platelet count is 243. IMAGING STUDIES: The patient's CT scan of the chest shows bronchiolitis and bronchopneumonia, signif icantly increased, mild bilateral pleural effusions, cardiomegaly. No mass or lymphadenopathy. ASSESSMENT AND PLAN: 1. Septic shock. Etiology is secondary to pneumonia. Other possible sources include urinary questi onable wounds. The patient is currently on broad spectrum antibiotics and pressor support, on IV flu ids. We will continue current treatment plan. Wean off pressors as tolerated. 2. Ventilator-dependent respiratory failure. Vent settings and ABG was reviewed. Continue to monit or. Follow up with pulmonary. 3. Nonoliguric acute kidney injury, etiology is secondary to hemodynamics. Renal function appears t o be stabilizing. Continue to monitor. 4. Hypokalemia, improved. 5. Mixed acid base disorder. The patient's last ABG showed evidence of a metabolic alkalosis. With incomplete compensation. Plan is to repeat ABG and monitor closely. 6. Anemia. Continue to monitor hemoglobin and hematocrit levels. 7. Elevated troponin likely non-St elevation myocardial infarction type 2. Continue to monitor. Fo llow up with Cardiology. 8. Coronary artery disease. Continue medical management. 9. Volume overload. The patient has noted edema in lower extremity. Etiology is secondary to sepsi s, capillary leak, IV fluids. We will continue to monitor. Defer diuretic therapy in the setting of shock. 10. History of arrhythmia status post pacemaker. Continue to monitor. 11. Diabetes. Continue current insulin regimen. 12. History of ovarian cancer stage IV, status post chemotherapy, radiation, currently in remission. 13. Hypothyroidism. 14. History of arthritis. 15. History of congestive heart failure. 16. Gastrointestinal and deep vein thrombosis prophylaxis. Please note I spent over 30 minutes of critical care time with this patient. Dictated By: SHAUN CHRISTENSEN DO NR/NTS Conf#: [id number] DID#: [id number] CC: STEVIE REN MD; JESS SAUCEDO MD;*[facility]*
[2018-11-28] MEDS: FLUCONAZOLE 100 MG TAB PO SCH (10:06)
[2018-11-28] MEDS: NEUTRA-PHOS 250 MG PACKET GTB SCH ×2 (10:06→21:21)
[2018-11-28] MEDS: ENOXAPARIN 40 MG/0.4 ML SYG SC SCH (10:09)
[2018-11-28] MEDS: BALSAM PERU/CASTOR OIL 60 GM TUBE TOP SCH ×2 (10:09→21:27)
[2018-11-28] MEDS: FENTAnyl (DRIP) 1000 mcg/100mL 100 ML IV SCH (10:18)
--- NOTE | 2018-11-28 10:37 | CONS ---
Consult Date/Type/Reason Admit Date/Time Nov 25, 2018 at 23:59 Initial Consult Date 11/26/18 Type of Consult Pulmonary Requesting Provider: SHAUN CHRISTENSEN DO Date/Time of Note DATE: 11/28/18 TIME: 10:37 Subjective Opens eyes to voice not consistently following commands yet. Still requiring vasopressor support. Objective Vital Signs Date Temp Pulse Resp B/P (MAP) Pulse Ox O2 O2 Flow FiO2 Time Delivery Rate 11/28/18 67 22 98 35 09:10 11/28/18 92/57 (69) 08:45 11/28/18 97.6 Mechanical 08:00 Ventilator Intake and Output 11/27/18 11/27/18 11/28/18 1515:00 23:00 07:00 IntakeIntake Total 1180 ml 1130 ml 1070 ml OutputOutput Total 190 ml 210 ml 285 ml BalanceBalance 990 ml 920 ml 785 ml Exam PHYSICAL EXAMINATION: GENERAL: Thin lady, orally intubated on mechanical ventilation, appears comfortable at rest. VITAL SIGNS: NECK: Supple. No JVD or lymphadenopathy. CARDIAC: S1, S2. No added sounds or murmurs. CHEST: Diminished air entry bilaterally. ABDOMEN: Soft, nontender. No guarding or rebound. EXTREMITIES: No cyanosis, clubbing, or edema. NEUROLOGIC: Generalized weakness. Vent Setting Ventilator Support Mode: AC Fraction of Inspired Oxygen pe: 35 Positive End Expiratory Pressu: 5.0 Results/Medications Result Diagram: 11/28/1831811/28/188 Results 24 hrs Laboratory Tests Test 11/27/18 12:19 11/27/18 17:18 11/27/18 21:21 11/28/18 01:34 Bedside Glucose 186 269 H 216 226 H Test 11/28/18 03:18 11/28/18 03:19 11/28/18 04:52 11/28/18 07:59 Sodium Level 138 Potassium Level 3.6 Chloride Level 100 Carbon Dioxide 36 H Level Anion Gap 2 L Blood Urea 24 H Nitrogen Creatinine 0.49 Est Glomerular Filtrat Rate mL/min Glucose Level 238 #H Calcium Level 7.5 L Phosphorus Level 2.1 L Magnesium Level 2.1 Vancomycin Level 5.2 L Trough White Blood Count 11.6 H Red Blood Count 3.02 L Hemoglobin 8.6 L Hematocrit 27.8 L Mean Corpuscular 92.1 Volume Mean Corpuscular 28.5 L Hemoglobin Mean Corpuscular 30.9 L Hemoglobin Concen t Red Cell 17.2 H Distribution Width Platelet Count 243 Mean Platelet 10.9 H Volume Immature 0.400 Granulocytes % Neutrophils % Segmented 90 H Neutrophils % (Manual) Band Neutrophils 8 H % (Manual) Lymphocytes % Monocytes % Monocytes % 2 (Manual) Eosinophils % Basophils % Nucleated Red 1 H Blood Cells % Immature 0.050 H Granulocytes # Neutrophils # Neutrophils # 10.5 H (Manual) Band Neutrophils 0.9 H # Lymphocytes # Monocytes # Monocytes # 0.2 L (Manual) Eosinophils # Basophils # Nucleated Red Blood Cells # Platelet Estimate NORMAL Giant Platelets 2 H Polychromasia 1+ Poikilocytosis 2+ Bedside Glucose 245 H Blood Gas Blood arterial Specimen Source Arterial Blood 11/28/2018 9:00:3 Date Drawn 6 AM Arterial Blood pH 7.449 (Temp corrected) Arterial Blood 48.3 H pCO2 (Temp correct) Arterial Blood 85.0 pO2 (Temp corrected) Arterial Blood 32.7 H HCO3 Arterial Blood 7.8 H Base Excess Arterial Blood 95.8 Oxygen Saturation Jordi Test ACCEPTAB Arterial Blood Right Radial Gas Puncture Site Arterial 0.3 Blood Carboxyhemo globin Arterial Blood 0.2 Methemoglobin Blood Gas A-a O2 108.4 H Differential Oxyhemoglobin 95.3 Percent Blood Gas 37.0 Temperature Blood Gas 14.0 Respiration Rate Blood Gas Actual 14 Respiration Rate Blood Gas VENT - AC Modality FiO2 35.0 Blood Gas Tidal 450.0 Volume Blood Gas Low 5.0 PEEP Setting Blood Gas TM Notified Whom Blood Gas 11/28/2018 9:13:1 Notified Time 0 AM Test 11/28/18 10:05 Bedside Glucose 198 Medications Current Medications Ondansetron HCl (Zofran Inj) 4 mg Q6H PRN IV NAUSEA AND/OR VOMITING; Start 11/26/18 at 01:00 Albuterol (Ventolin Hfa) 4 puff Q4H RESP THERAPY INH Last administered on 11/28/18at 09:12; Admin Dose 4 PUFF; Start 11/26/18 at 01:00 Albuterol (Ventolin Hfa) 4 puff Q2H RESP THERAPY PRN INH SHORTNESS OF BREATH Last administered on 11/28/18at 01:53; Admin Dose 4 PUFF; Start 11/26/18 at 01:00 Methylprednisolone Sodium Succinate (Solu-Medrol) 60 mg Q6 IV Last administered on 11/28/18at 05:59; Admin Dose 60 MG; Start 11/26/18 at 06:00 Acetaminophen (Tylenol Liquid) 650 mg Q6H PRN PO PAIN LEVEL 1-3 OR FEVER; Start 11/26/18 at 01:00 Morphine Sulfate (morphine) 2 mg Q4H PRN IV PAIN LEVEL 7-10; Start 11/26/18 at 01:00 Lorazepam (Ativan) 1 mg Q2H PRN IV ANXIETY; Start 11/26/18 at 01:00 Enoxaparin Sodium (Lovenox) 40 mg DAILY SC Last administered on 11/28/18at 10:09; Admin Dose 40 MG; Start 11/26/18 at 09:00 Vancomycin HCl (Vanco Iv Per Pharmacy) VANCOMYCIN PER PHARMACY PER PROTOCOL XX ; Start 11/26/18 at 03:00 Piperacillin Sod/ Tazobactam Sod 100 ml @ 200 mls/hr Q8 IVPB Last administered on 11/28/18at 06:28; Admin Dose 200 MLS/HR; Start 11/26/18 at 06:00 Propofol 100 ml @ 1.32 mls/hr Q12H IV Last administered on 11/27/18at 21:34; Admin Dose 3.9 MLS/HR; Start 11/26/18 at 03:00 Sodium Chloride 1,000 ml @ 75 mls/hr [id number] IV Last administered on 11/28/18at 10:18; Admin Dose 75 MLS/HR; Start 11/26/18 at 08:00 Norepinephrine 250 ml @ 1.875 mls/ hr TITRATE IV Last administered on 11/26/18at 10:46; Admin Dose 37.5 MLS/HR; Start 11/26/18 at 09:00 Insulin Aspart (Novolog Insulin Pen) NOVOLOG *MILD* ALGORI... Q4 SC Last administered on 11/28/18at 10:08; Admin Dose 2 UNIT; Start 11/26/18 at 13:00 Phenylephrine HCl 40 mg/Dextrose 250 ml @ 37.5 mls/hr TITRATE IV Last administered on 11/28/18at 04:47; Admin Dose 30 MLS/HR; Start 11/26/18 at 11:00 Fentanyl 100 ml @ 2.5 mls/hr TITRATE IV Last administered on 11/28/18at 10:18; Admin Dose 7.5 MLS/HR; Start 11/26/18 at 13:00 IV Flush (NS 10 ml) 10 ml PRN PRN IV IV PROTOCOL; Start 11/26/18 at 15:00 Lansoprazole (Prevacid) 30 mg DAILY@06 GTB Last administered on 11/28/18at 05:59; Admin Dose 30 MG; Start 11/28/18 at 06:00 Fluconazole (Diflucan) 100 mg DAILY PO Last administered on 11/28/18 10:06; Admin Dose 100 MG; Start 11/27/18 at 15:00 Vancomycin/Sodium Chloride 250 ml @ 125 mls/hr Q12H IVPB Last administered on 11/28/18 04:27; Admin Dose 125 MLS/HR; Start 11/28/18 at 04:00 Sodium Phosphate (Neutra-Phos) 250 mg BID GTB Last administered on 11/28/18 10:06; Admin Dose 250 MG; Start 11/28/18 at 09:00 Assessment/Plan Hospital Course (Demo Recall) IMPRESSION: 1. [id number] hypercapnic respiratory failure. 2. Likely healthcare-associated pneumonia and loculated effusion. 3. History of mitral valve replacement. 4. Septic shock likely secondary to above PLAN: 1. Continue vasopressors. Titrate to keep map greater than 65 2. Decrease O2 as tolerated. 3. Decrease PEEP anticipate CPAP weaning trial tomorrow. 4. Antibiotics. 5. CT chest, findings noted bilateral infiltrates chronic lung disease 6. DVT and GI prophylaxis. 7. Tube feeding as tolerated Critical care time 40 minutes. Discussed with family at bedside. JESS SAUCEDO MD, [facility] Nov 28, 2018 10:37
--- NOTE | 2018-11-28 13:57 | CONS ---
Assessment/Plan Assessment/Plan Hospital Course (Demo Recall) No acute changes overnight patient is still on pressors that being titrated down, family at bedside, no fevers overnight. WBC today 11.6 platelets 243 bands 8 BUN 24 creatinine 0.49 Chest x-ray this morning revealed slight improvement. Please see full report Microbiology: Blood cultures preliminary negative urine culture growing Nicole albicans CT chest revealed bilateral bronchiolitis and bronchopneumonia greater on the right. Please see full report in the chart Indwelling: Endotracheal tube, NG tube, Das, right upper extremity PICC line placed yesterday Antimicrobials: Vancomycin, Zosyn, Diflucan Physical examination: This is a chronically ill-appearing wasted elderly woman who is intubated sedated in no distress. Head atraumatic normocephalic neck is supple chest rise symmetrical breath sounds diminished bases heart: S1-S2 abdomen soft bowel sounds present extremities without cyanosis Assessment: 1. Severe sepsis with shock 2. Acute on chronic hypoxemic respiratory failure 3. Bilateral pneumonia 4. Nicole albicans UTI 5. Coronary artery disease with a history of mitral valve replacement Plan: Remains on vent support, pending sputum culture, continue antibiotics, follow pulmonary and cardiology recommendations Discussed with family at bedside Consultation Date/Type/Reason Admit Date/Time Nov 25, 2018 at 23:59 Initial Consult Date 11/26/18 Type of Consult id Requesting Provider: SHAUN CHRISTENSEN DO Date/Time of Note DATE: 11/28/18 TIME: 13:56 Exam/Review of Systems Exam Vitals Vital Signs Date Temp Pulse Resp B/P (MAP) Pulse Ox O2 O2 Flow FiO2 Time Delivery Rate 11/28/18 66 14 98 35 13:10 11/28/18 100/60 Mechanical 11:00 (73) Ventilator 11/28/18 97.6 08:00 Intake and Output 11/27/18 11/27/18 11/28/18 1515:00 23:00 07:00 IntakeIntake Total 1180 ml 1130 ml 1070 ml OutputOutput Total 190 ml 210 ml 285 ml BalanceBalance 990 ml 920 ml 785 ml Results Result Diagram: 11/28/18 0319 11/28/18 0318 Results 24hrs Laboratory Tests Test 11/27/18 17:18 11/27/18 21:21 11/28/18 01:34 11/28/18 03:18 Bedside Glucose 269 H 216 226 H Sodium Level 138 Potassium Level 3.6 Chloride Level 100 Carbon Dioxide 36 H Level Anion Gap 2 L Blood Urea 24 H Nitrogen Creatinine 0.49 Est Glomerular Filtrat Rate mL/min Glucose Level 238 #H Calcium Level 7.5 L Phosphorus Level 2.1 L Magnesium Level 2.1 Vancomycin Level 5.2 L Trough Test 11/28/18 03:19 11/28/18 04:52 11/28/18 07:59 11/28/18 10:05 White Blood Count 11.6 H Red Blood Count 3.02 L Hemoglobin 8.6 L Hematocrit 27.8 L Mean Corpuscular 92.1 Volume Mean Corpuscular 28.5 L Hemoglobin Mean Corpuscular 30.9 L Hemoglobin Concen t Red Cell 17.2 H Distribution Width Platelet Count 243 Mean Platelet 10.9 H Volume Immature 0.400 Granulocytes % Neutrophils % Segmented 90 H Neutrophils % (Manual) Band Neutrophils 8 H % (Manual) Lymphocytes % Monocytes % Monocytes % 2 (Manual) Eosinophils % Basophils % Nucleated Red 1 H Blood Cells % Immature 0.050 H Granulocytes # Neutrophils # Neutrophils # 10.5 H (Manual) Band Neutrophils 0.9 H # Lymphocytes # Monocytes # Monocytes # 0.2 L (Manual) Eosinophils # Basophils # Nucleated Red Blood Cells # Platelet Estimate NORMAL Giant Platelets 2 H Polychromasia 1+ Poikilocytosis 2+ Bedside Glucose 245 H 198 Blood Gas Blood arterial Specimen Source Arterial Blood 11/28/2018 9:00:3 Date Drawn 6 AM Arterial Blood pH 7.449 (Temp corrected) Arterial Blood 48.3 H pCO2 (Temp correct) Arterial Blood 85.0 pO2 (Temp corrected) Arterial Blood 32.7 H HCO3 Arterial Blood 7.8 H Base Excess Arterial Blood 95.8 Oxygen Saturation Jordi Test ACCEPTAB Arterial Blood Right Radial Gas Puncture Site Arterial 0.3 Blood Carboxyhemo globin Arterial Blood 0.2 Methemoglobin Blood Gas A-a O2 108.4 H Differential Oxyhemoglobin 95.3 Percent Blood Gas 37.0 Temperature Blood Gas 14.0 Respiration Rate Blood Gas Actual 14 Respiration Rate Blood Gas VENT - AC Modality FiO2 35.0 Blood Gas Tidal 450.0 Volume Blood Gas Low 5.0 PEEP Setting Blood Gas TM Notified Whom Blood Gas 11/28/2018 9:13:1 Notified Time 0 AM Test 11/28/18 12:35 Bedside Glucose 233 H Medications Medication Current Medications Ondansetron HCl (Zofran Inj) 4 mg Q6H PRN IV NAUSEA AND/OR VOMITING; Start 11/26/18 at 01:00 Albuterol (Ventolin Hfa) 4 puff Q4H RESP THERAPY INH Last administered on 11/28/18 13:04; Admin Dose 4 PUFF; Start 11/26/18 at 01:00 Albuterol (Ventolin Hfa) 4 puff Q2H RESP THERAPY PRN INH SHORTNESS OF BREATH Last administered on 11/28/18 01:53; Admin Dose 4 PUFF; Start 11/26/18 at 01:00 Methylprednisolone Sodium Succinate (Solu-Medrol) 60 mg Q6 IV Last administered on 11/28/18 12:39; Admin Dose 60 MG; Start 11/26/18 at 06:00 Acetaminophen (Tylenol Liquid) 650 mg Q6H PRN PO PAIN LEVEL 1-3 OR FEVER; Start 11/26/18 at 01:00 Morphine Sulfate (morphine) 2 mg Q4H PRN IV PAIN LEVEL 7-10; Start 11/26/18 at 01:00 Lorazepam (Ativan) 1 mg Q2H PRN IV ANXIETY; Start 11/26/18 at 01:00 Enoxaparin Sodium (Lovenox) 40 mg DAILY SC Last administered on 11/28/18 10:09; Admin Dose 40 MG; Start 11/26/18 at 09:00 Vancomycin HCl (Vanco Iv Per Pharmacy) VANCOMYCIN PER PHARMACY PER PROTOCOL XX ; Start 11/26/18 at 03:00 Piperacillin Sod/ Tazobactam Sod 100 ml @ 200 mls/hr Q8 IVPB Last administered on 11/28/18 06:28; Admin Dose 200 MLS/HR; Start 11/26/18 at 06:00 Propofol 100 ml @ 1.32 mls/hr Q12H IV Last administered on 11/27/18 21:34; Admin Dose 3.9 MLS/HR; Start 11/26/18 at 03:00 Sodium Chloride 1,000 ml @ 75 mls/hr [id number] IV Last administered on 11/28/18 10:18; Admin Dose 75 MLS/HR; Start 11/26/18 at 08:00 Norepinephrine 250 ml @ 1.875 mls/ hr TITRATE IV Last administered on 11/26/18 10:46; Admin Dose 37.5 MLS/HR; Start 11/26/18 at 09:00 Insulin Aspart (Novolog Insulin Pen) NOVOLOG *MILD* ALGORI... Q4 SC Last administered on 11/28/18 13:08; Admin Dose 3 UNIT; Start 11/26/18 at 13:00 Phenylephrine HCl 40 mg/Dextrose 250 ml @ 37.5 mls/hr TITRATE IV Last administered on 11/28/18 04:47; Admin Dose 30 MLS/HR; Start 11/26/18 at 11:00 Fentanyl 100 ml @ 2.5 mls/hr TITRATE IV Last administered on 11/28/18 10:18; Admin Dose 7.5 MLS/HR; Start 11/26/18 at 13:00 IV Flush (NS 10 ml) 10 ml PRN PRN IV IV PROTOCOL; Start 11/26/18 at 15:00 Lansoprazole (Prevacid) 30 mg DAILY@06 GTB Last administered on 11/28/18at 05:59; Admin Dose 30 MG; Start 11/28/18 at 06:00 Fluconazole (Diflucan) 100 mg DAILY PO Last administered on 11/28/18 10:06; Admin Dose 100 MG; Start 11/27/18 at 15:00 Vancomycin/Sodium Chloride 250 ml @ 125 mls/hr Q12H IVPB Last administered on 11/28/18 04:27; Admin Dose 125 MLS/HR; Start 11/28/18 at 04:00 Sodium Phosphate (Neutra-Phos) 250 mg BID GTB Last administered on 11/28/18 10:06; Admin Dose 250 MG; Start 11/28/18 at 09:00 Miscellaneous Information (*Rx Drug Level Order Reminder*) VANCOMYCIN TROUGH AT 1500 1500 ONCE XX ; Start 11/29/18 at 15:00; Stop 11/29/18 at 15:01 JODY BOYD NP Nov 28, 2018 13:57
[2018-11-28] MEDS: PROPOFOL 100 ML IV SCH (15:46)
[2018-11-29] VITALS (106 sets, daily range): BP systolic 79–133; BP diastolic 56–83; PULSE 60–80; RESP 9–38
[2018-11-29] MEDS: METHYLPREDNISOLONE 125 MG INJ IV SCH ×4 (01:03→17:27)
[2018-11-29] MEDS: INSULIN ASPART [NOVOLOG] 3 ML PEN SC SCH ×6 (01:12→20:35)
[2018-11-29] MEDS: ALBUTEROL HFA 8 GM INHALER INH SCH ×6 (01:22→21:23)
[2018-11-29] MEDS: SOD CHLORIDE 0.9% 1,000 ML IV SCH (01:55)
[2018-11-29] MEDS: PROPOFOL 100 ML IV SCH ×3 (03:30→20:47)
[2018-11-29] MEDS: FENTAnyl (DRIP) 1000 mcg/100mL 100 ML IV SCH ×2 (04:00→16:34)
[2018-11-29] MEDS: VANCOMYCIN 750 MG (PMX) 250 ML IVPB SCH ×2 (04:16→15:52)
[2018-11-29] MEDS: PHENYLephrine 40 MG in DEXTROSE 5% 246 ML IV SCH (04:43)
[2018-11-29] MEDS: PIPER-TAZO 3.375 GM IV (PMX) 100 ML IVPB SCH ×3 (05:47→21:48)
[2018-11-29] MEDS: LANSOPRAZOLE 30 MG CAP GTB SCH (05:47)
--- NOTE | 2018-11-29 08:23 | PN ---
DATE: 11/29/2018 SUBJECTIVE: The patient remains critically ill on pressor support, on full ventilatory support. The patient is started on tube feedings, tolerating. Urinary output has been marginal. No other acute events noted. No hemoptysis, hematemesis or hematochezia. OBJECTIVE: VITAL SIGNS: Blood pressure is 110/65, respirations 14, pulse 66, temperature 98.6. HEENT: Head is normocephalic. NECK: Supple. HEART: Regular rate. LUNGS: Show diminished breath sounds at the base. ABDOMEN: Soft, nontender to palpation without rebound or guarding. EXTREMITIES: Negative for clubbing, cyanosis. Positive edema. DERMATOLOGIC: No rashes. MUSCULOSKELETAL: No joint effusion. NEUROLOGIC: No change in exam. MEDICATIONS: The patient's medications have been reviewed. LABORATORY DATA: Shows sodium 137, potassium 4.2, BUN 22, phosphorus 1.8. White count 8.6, hemoglob in 8.2, platelet count is 193. ASSESSMENT AND PLAN: 1. Septic shock. Etiology is secondary to pneumonia, urinary tract infection. The patient is curre ntly on pressor support, IV fluids, broad spectrum antifungal and antimicrobial therapy. We would co ntinue current treatment plan. Continue to wean off pressors as tolerated. We will deescalate IV fl uids, and monitor closely. 2. Ventilatory-dependent respiratory failure. Vent settings and ABG was reviewed. Continue to jaymie tor. Weaning per pulmonary. 3. Nonoliguric acute kidney injury. Etiology is secondary to hemodynamics. Renal function is impro mary ann. Continue to monitor. 4. Anemia. Continue to monitor hemoglobin and hematocrit levels. 5. Mineral bone disorder. The patient is hypophosphatemic. We will replete with potassium phosphat e. 6. Mixed acid base disorder. The patient has a metabolic alkalosis with respiratory compensation. Continue to monitor. 7. Elevated troponin, non-ST elevation myocardial infarction type 2. Continue medical management. Followup with cardiology. 8. History of coronary artery disease. Continue current treatment plan. 9. Volume overload. The patient has noted edema, etiology is secondary to sepsis, capillary leak, I V fluids. We will deescalate IV fluids, defer diuretic therapy in the setting of shock. If hemodyna mics improve, we would initiate diuretics. 10. History of arrhythmia, status post pacemaker. Continue to monitor. 11. Diabetes. Continue current insulin regimen. 12. History of ovarian cancer stage IV, status post chemotherapy, radiation, currently in remission. 13. Hypothyroidism. 14. History of arthritis. 15. Gastrointestinal and deep vein thrombosis prophylaxis. Please note I spent over 30 minutes of critical care time with this patient. Dictated By: SHAUN CHRISTENSEN DO NR/NTS Conf#: [id number] DID#: [id number] CC: STEVIE REN MD; JESS SAUCEDO MD;*EndCC*
[2018-11-29] MEDS ORDERED: NEUTRA-PHOS 250 MG PACKET GTB SCH (09:00)
[2018-11-29] MEDS: MIDODRINE 5 MG TAB GTB SCH ×3 (09:00→17:28)
--- NOTE | 2018-11-29 10:50 | CONS ---
Consult Date/Type/Reason Admit Date/Time Nov 25, 2018 at 23:59 Initial Consult Date 11/26/18 Type of Consult Pulmonary Requesting Provider: SHAUN CHRISTENSEN DO Date/Time of Note DATE: 11/29/18 TIME: 10:48 Subjective More alert this morning. Eyes open but not consistently following commands. Currently remains on low-dose vasopressor support. Decrease oral secretions. Objective Vital Signs Date Temp Pulse Resp B/P (MAP) Pulse Ox O2 O2 Flow FiO2 Time Delivery Rate 11/29/18 62 08:00 11/29/18 14 97 35 07:55 11/29/18 116/70 06:30 (85) 11/29/18 97.4 Mechanical 06:00 Ventilator Intake and Output 11/28/18 11/28/18 11/29/18 1515:00 23:00 07:00 IntakeIntake Total 2052.495 ml 1349.23 ml 1058.18 ml OutputOutput Total 237 ml 355 ml 268 ml BalanceBalance 1815.495 ml 994.23 ml 790.18 ml Exam PHYSICAL EXAMINATION: GENERAL: Thin lady, orally intubated on mechanical ventilation, appears comfortable at rest. VITAL SIGNS: NECK: Supple. No JVD or lymphadenopathy. CARDIAC: S1, S2. No added sounds or murmurs. CHEST: Diminished air entry bilaterally. ABDOMEN: Soft, nontender. No guarding or rebound. EXTREMITIES: No cyanosis, clubbing, or edema. NEUROLOGIC: Generalized weakness. Vent Setting Ventilator Support Mode: AC Fraction of Inspired Oxygen pe: 35 Positive End Expiratory Pressu: 5.0 Results/Medications Result Diagram: 11/29/18 0430 11/29/18 0453 Results 24 hrs Laboratory Tests Test 11/28/18 12:35 11/28/18 18:19 11/28/18 21:16 11/29/18 01:07 Bedside Glucose 233 H 198 167 163 Test 11/29/18 04:30 11/29/18 04:53 11/29/18 05:07 White Blood Count 8.6 # Red Blood Count 2.91 L Hemoglobin 8.2 L Hematocrit 26.9 L Mean Corpuscular 92.4 Volume Mean Corpuscular 28.2 L Hemoglobin Mean Corpuscular 30.5 L Hemoglobin Concent Red Cell 17.2 H Distribution Width Platelet Count 193 # Mean Platelet Volume 10.7 H Immature 0.700 H Granulocytes % Neutrophils % Segmented 98 H Neutrophils % (Manual) Lymphocytes % Lymphocytes % 1 L (Manual) Monocytes % Monocytes % (Manual) 1 Eosinophils % Basophils % Nucleated Red Blood 0.0 Cells % Immature 0.060 H Granulocytes # Neutrophils # Lymphocytes (Manual) 0.0 L Lymphocytes # Monocytes # Monocytes # (Manual) 0.0 L Eosinophils # Basophils # Nucleated Red Blood Cells # Platelet Estimate NORMAL Giant Platelets 2 H Polychromasia 1+ Poikilocytosis 2+ Anisocytosis 1+ Sodium Level 137 Potassium Level 4.2 Chloride Level 102 Carbon Dioxide Level 35 H Anion Gap 0 L Blood Urea Nitrogen 22 H Creatinine 0.41 L Est Glomerular Filtrat Rate mL/min Glucose Level 178 Calcium Level 7.2 L Phosphorus Level 1.8 L Magnesium Level 2.2 Bedside Glucose 179 Medications Current Medications Ondansetron HCl (Zofran Inj) 4 mg Q6H PRN IV NAUSEA AND/OR VOMITING; Start 11/26/18 at 01:00 Albuterol (Ventolin Hfa) 4 puff Q4H RESP THERAPY INH Last administered on 11/29/18at 05:50; Admin Dose 4 PUFF; Start 11/26/18 at 01:00 Albuterol (Ventolin Hfa) 4 puff Q2H RESP THERAPY PRN INH SHORTNESS OF BREATH Last administered on 11/28/18at 01:53; Admin Dose 4 PUFF; Start 11/26/18 at 01:00 Methylprednisolone Sodium Succinate (Solu-Medrol) 60 mg Q6 IV Last administered on 11/29/18at 05:47; Admin Dose 60 MG; Start 11/26/18 at 06:00 Acetaminophen (Tylenol Liquid) 650 mg Q6H PRN PO PAIN LEVEL 1-3 OR FEVER; Start 11/26/18 at 01:00 Morphine Sulfate (morphine) 2 mg Q4H PRN IV PAIN LEVEL 7-10; Start 11/26/18 at 01:00 Lorazepam (Ativan) 1 mg Q2H PRN IV ANXIETY; Start 11/26/18 at 01:00 Enoxaparin Sodium (Lovenox) 40 mg DAILY SC Last administered on 11/28/18at 10:09; Admin Dose 40 MG; Start 11/26/18 at 09:00 Vancomycin HCl (Vanco Iv Per Pharmacy) VANCOMYCIN PER PHARMACY PER PROTOCOL XX ; Start 11/26/18 at 03:00 Piperacillin Sod/ Tazobactam Sod 100 ml @ 200 mls/hr Q8 IVPB Last administered on 11/29/18 05:47; Admin Dose 200 MLS/HR; Start 11/26/18 at 06:00 Propofol 100 ml @ 1.32 mls/hr Q12H IV Last administered on 11/29/18 03:30; Admin Dose 3.96 MLS/HR; Start 11/26/18 at 03:00 Sodium Chloride 1,000 ml @ 40 mls/hr Q24H IV Last administered on 11/29/18 01:55; Admin Dose 75 MLS/HR; Start 11/26/18 at 08:00 Norepinephrine 250 ml @ 1.875 mls/ hr TITRATE IV Last administered on 11/26/18 10:46; Admin Dose 37.5 MLS/HR; Start 11/26/18 at 09:00 Insulin Aspart (Novolog Insulin Pen) NOVOLOG *MILD* ALGORI... Q4 SC Last administered on 11/29/18 05:10; Admin Dose 1 UNIT; Start 11/26/18 at 13:00 Phenylephrine HCl 40 mg/Dextrose 250 ml @ 37.5 mls/hr TITRATE IV Last administered on 11/29/18 04:43; Admin Dose 6.75 MLS/HR; Start 11/26/18 at 11:00 Fentanyl 100 ml @ 2.5 mls/hr TITRATE IV Last administered on 11/29/18 04:00; Admin Dose 7.5 MLS/HR; Start 11/26/18 at 13:00 IV Flush (NS 10 ml) 10 ml PRN PRN IV IV PROTOCOL; Start 11/26/18 at 15:00 Lansoprazole (Prevacid) 30 mg DAILY@06 GTB Last administered on 11/29/18 05:47; Admin Dose 30 MG; Start 11/28/18 at 06:00 Fluconazole (Diflucan) 100 mg DAILY PO Last administered on 11/28/18 10:06; Admin Dose 100 MG; Start 11/27/18 at 15:00 Vancomycin/Sodium Chloride 250 ml @ 125 mls/hr Q12H IVPB Last administered on 11/29/18 04:16; Admin Dose 125 MLS/HR; Start 11/28/18 at 04:00 Sodium Phosphate (Neutra-Phos) 250 mg BID GTB Last administered on 11/28/18at 21:21; Admin Dose 250 MG; Start 11/28/18 at 09:00 Miscellaneous Information (*Rx Drug Level Order Reminder*) VANCOMYCIN TROUGH AT 1500 1500 ONCE XX ; Start 11/29/18 at 15:00; Stop 11/29/18 at 15:01 Midodrine (Proamatine) 5 mg TID@,,17 GTB ; Start 11/29/18 at 09:00 Assessment/Plan Hospital Course (Demo Recall) IMPRESSION: 1. [id number] hypercapnic respiratory failure. 2. Likely healthcare-associated pneumonia and loculated effusion. 3. History of mitral valve replacement. 4. Septic shock likely secondary to above PLAN: 1. Continue vasopressors. Titrate to keep map greater than 65 2. Decrease O2 as tolerated. 3. Decrease PEEP anticipate CPAP weaning trial 4. Antibiotics. 5. CT chest, findings noted bilateral infiltrates chronic lung disease 6. DVT and GI prophylaxis. 7. Tube feeding as tolerated Critical care time 40 minutes. Discussed with family at bedside. Discussed reintubation status with family. They are undecided at present. Of note patient has been intubated at least 10 times in the past few years. JESS SAUCEDO MD, [facility] Nov 29, 2018 10:50
--- NOTE | 2018-11-29 11:42 | CONS ---
Consult Date/Type/Reason Admit Date/Time Nov 25, 2018 at 23:59 Initial Consult Date 11/26/18 Type of Consultation: cv Reason for Consultation Interventional cardiology follow-up progress note Subjective: Case discussed with staff and telemetry was reviewed. Patient remains in sinus rhythm with ventricular pacing. HR is STABLE now Patient nonverbal status post intubation vent dep She continues to be hypotensive and is still on Maikol-Synephrine drip. Currently down to 20 mics She is still on the vent ; patient failed CPAP trial today Discussed with patient's son in detail Objective: General: Elderly female cachectic looking appears to be older than stated age status post intubation on the vent HEENT: NC/AT. pupils are equal. round. NECK: NO JVD. no stridor. CV: RRR. systolic murmur; no gallop or rubs. PULM: no wheezing + rhonchi more on the right GI: SOFT, NT, ND, no rebound or guarding Extremity: trace B/L LE edema. no clubbing. neuro: Sedated now Psych: calm rectal: deferred : normal Chest x-ray shows ET and NG tubes in satisfactory position. Increase moderate large right pleural effusion, right middle lobe and basilar consolidation or atelectasis. Echocardiogram was personally reviewed which showed normal LV size ejection fraction of about 45-50% EKG was personally reviewed which shows ventricular paced rhythm CT Chest 11/27: 1. Findings compatible with bilateral bronchiolitis and bronchopneumonia, greater on the right, significantly increased when compared to the prior CT. Mild bilateral pleural effusions, grossly stable. 2. Stable mild cardiomegaly. Coronary arterial and aortic atherosclerotic calcifications. 3. Lines and tubes in place, as above. 4. No evidence of mass or lymphadenopath Requesting Provider: SHAUN CHRISTENSEN DO Date/Time of Note DATE: 11/29/18 TIME: 11:38 Objective Vitals Vital Signs Date Temp Pulse Resp B/P (MAP) Pulse Ox O2 O2 Flow FiO2 Time Delivery Rate 11/29/18 77 32 96 35 11:22 11/29/18 116/70 06:30 (85) 11/29/18 97.4 Mechanical 06:00 Ventilator Intake and Output 11/28/18 11/28/18 11/29/18 1515:00 23:00 07:00 IntakeIntake Total 2052.495 ml 1349.23 ml 1058.18 ml OutputOutput Total 237 ml 355 ml 268 ml BalanceBalance 1815.495 ml 994.23 ml 790.18 ml Results/Medications Result Diagram: 11/29/18 0430 11/29/18 0453 Results 24 hrs Laboratory Tests Test 11/28/18 12:35 11/28/18 18:19 11/28/18 21:16 11/29/18 01:07 Bedside Glucose 233 H 198 167 163 Test 11/29/18 04:30 11/29/18 04:53 11/29/18 05:07 White Blood Count 8.6 # Red Blood Count 2.91 L Hemoglobin 8.2 L Hematocrit 26.9 L Mean Corpuscular 92.4 Volume Mean Corpuscular 28.2 L Hemoglobin Mean Corpuscular 30.5 L Hemoglobin Concent Red Cell 17.2 H Distribution Width Platelet Count 193 # Mean Platelet Volume 10.7 H Immature 0.700 H Granulocytes % Neutrophils % Segmented 98 H Neutrophils % (Manual) Lymphocytes % Lymphocytes % 1 L (Manual) Monocytes % Monocytes % (Manual) 1 Eosinophils % Basophils % Nucleated Red Blood 0.0 Cells % Immature 0.060 H Granulocytes # Neutrophils # Lymphocytes (Manual) 0.0 L Lymphocytes # Monocytes # Monocytes # (Manual) 0.0 L Eosinophils # Basophils # Nucleated Red Blood Cells # Platelet Estimate NORMAL Giant Platelets 2 H Polychromasia 1+ Poikilocytosis 2+ Anisocytosis 1+ Sodium Level 137 Potassium Level 4.2 Chloride Level 102 Carbon Dioxide Level 35 H Anion Gap 0 L Blood Urea Nitrogen 22 H Creatinine 0.41 L Est Glomerular Filtrat Rate mL/min Glucose Level 178 Calcium Level 7.2 L Phosphorus Level 1.8 L Magnesium Level 2.2 Bedside Glucose 179 Medications Current Medications Ondansetron HCl (Zofran Inj) 4 mg Q6H PRN IV NAUSEA AND/OR VOMITING; Start 11/26/18 at 01:00 Albuterol (Ventolin Hfa) 4 puff Q4H RESP THERAPY INH Last administered on 11/29/18at 05:50; Admin Dose 4 PUFF; Start 11/26/18 at 01:00 Albuterol (Ventolin Hfa) 4 puff Q2H RESP THERAPY PRN INH SHORTNESS OF BREATH Last administered on 11/28/18at 01:53; Admin Dose 4 PUFF; Start 11/26/18 at 01:00 Methylprednisolone Sodium Succinate (Solu-Medrol) 60 mg Q6 IV Last administered on 11/29/18 05:47; Admin Dose 60 MG; Start 11/26/18 at 06:00 Acetaminophen (Tylenol Liquid) 650 mg Q6H PRN PO PAIN LEVEL 1-3 OR FEVER; Start 11/26/18 at 01:00 Morphine Sulfate (morphine) 2 mg Q4H PRN IV PAIN LEVEL 7-10; Start 11/26/18 at 01:00 Lorazepam (Ativan) 1 mg Q2H PRN IV ANXIETY; Start 11/26/18 at 01:00 Enoxaparin Sodium (Lovenox) 40 mg DAILY SC Last administered on 11/28/18 10:09; Admin Dose 40 MG; Start 11/26/18 at 09:00 Vancomycin HCl (Vanco Iv Per Pharmacy) VANCOMYCIN PER PHARMACY PER PROTOCOL XX ; Start 11/26/18 at 03:00 Piperacillin Sod/ Tazobactam Sod 100 ml @ 200 mls/hr Q8 IVPB Last administered on 11/29/18 05:47; Admin Dose 200 MLS/HR; Start 11/26/18 at 06:00 Propofol 100 ml @ 1.32 mls/hr Q12H IV Last administered on 11/29/18 03:30; Admin Dose 3.96 MLS/HR; Start 11/26/18 at 03:00 Sodium Chloride 1,000 ml @ 40 mls/hr Q24H IV Last administered on 11/29/18 01:55; Admin Dose 75 MLS/HR; Start 11/26/18 at 08:00 Norepinephrine 250 ml @ 1.875 mls/ hr TITRATE IV Last administered on 11/26/18 10:46; Admin Dose 37.5 MLS/HR; Start 11/26/18 at 09:00 Insulin Aspart (Novolog Insulin Pen) NOVOLOG *MILD* ALGORI... Q4 SC Last administered on 11/29/18 05:10; Admin Dose 1 UNIT; Start 11/26/18 at 13:00 Phenylephrine HCl 40 mg/Dextrose 250 ml @ 37.5 mls/hr TITRATE IV Last administered on 11/29/18 04:43; Admin Dose 6.75 MLS/HR; Start 11/26/18 at 11:00 Fentanyl 100 ml @ 2.5 mls/hr TITRATE IV Last administered on 11/29/18 04:00; Admin Dose 7.5 MLS/HR; Start 11/26/18 at 13:00 IV Flush (NS 10 ml) 10 ml PRN PRN IV IV PROTOCOL; Start 11/26/18 at 15:00 Lansoprazole (Prevacid) 30 mg DAILY@06 GTB Last administered on 11/29/18at 05:47; Admin Dose 30 MG; Start 11/28/18 at 06:00 Fluconazole (Diflucan) 100 mg DAILY PO Last administered on 11/28/18at 10:06; Admin Dose 100 MG; Start 11/27/18 at 15:00 Vancomycin/Sodium Chloride 250 ml @ 125 mls/hr Q12H IVPB Last administered on 11/29/18at 04:16; Admin Dose 125 MLS/HR; Start 11/28/18 at 04:00 Sodium Phosphate (Neutra-Phos) 250 mg BID GTB Last administered on 11/28/18at 21:21; Admin Dose 250 MG; Start 11/28/18 at 09:00 Miscellaneous Information (*Rx Drug Level Order Reminder*) VANCOMYCIN TROUGH AT 1500 1500 ONCE XX ; Start 11/29/18 at 15:00; Stop 11/29/18 at 15:01 Midodrine (Proamatine) 5 mg TID@09,,17 GTB ; Start 11/29/18 at 09:00 Assessment/Plan Hospital Course (Demo Recall) Acute on chronic hypoxemic/hypercapnic respiratory failure status post in tubation currently on the ventilator Shock: Appears to be septic Pneumonia Pleural effusion History of mitral valve replacement currently functioning normally History of most likely heart block status post permanent pacemaker ([place] Vert[employer]) Encephalopathy Cachexia and malnutrition History of rheumatoid arthritis History of ovarian cancer stage IV Thyroid disorder Acute renal failure Diabetes anemia Recommendations: Vent support to be continued to be managed as per pulmonary. Antibiotic management as per internal medicine pulmonary and infectious disease consultants cont Maikol-Synephrine drip and titrate off if blood pressure is a stable REPLACE Lytes prn Diabetic management as per internal medicine GI and DVT prophylaxis Continue with ICU care NAYLA SAUL MD [facility] NAYLA SAUL MD Nov 29, 2018 11:42
--- NOTE | 2018-11-29 12:52 | CONS ---
Assessment/Plan Assessment/Plan Hospital Course (Demo Recall) Patient failed CPAP trial this morning currently awake comfortable on vent, daughter at bedside, no fevers. WBC 8.6 platelets 193 neutrophils 98 BUN 22 creatinine 0.41. Microbiology: Urine and sputum culture grew Nicole albicans Chest x-ray this morning revealed stable patchy infiltrates throughout the right lung. Please see full report in the chart Antimicrobials: Vancomycin, fluconazole, Zosyn Indwelling: Endotracheal tube, NG tube, Das, right upper extremity PICC line placed yesterday Physical examination: This is a chronically ill-appearing wasted elderly woman who is intubated sedated in no distress. Head atraumatic normocephalic neck is supple chest rise symmetrical breath sounds diminished bases heart: S1-S2 abdomen soft bowel sounds present extremities without cyanosis Assessment: 1. Severe sepsis with shock 2. Acute on chronic hypoxemic respiratory failure 3. Bilateral pneumonia 4. Nicole albicans UTI 5. Coronary artery disease with a history of mitral valve replacement Plan: Remains hemodynamically unstable, continue antibiotics Discussed with family at bedside Consultation Date/Type/Reason Admit Date/Time Nov 25, 2018 at 23:59 Initial Consult Date 11/26/18 Type of Consult id Requesting Provider: SHAUN CHRISTENSEN DO Date/Time of Note DATE: 11/29/18 TIME: 12:51 Exam/Review of Systems Exam Vitals Vital Signs Date Temp Pulse Resp B/P (MAP) Pulse Ox O2 O2 Flow FiO2 Time Delivery Rate 11/29/18 77 32 96 35 11:22 11/29/18 116/70 06:30 (85) 11/29/18 97.4 Mechanical 06:00 Ventilator Intake and Output 11/28/18 11/28/18 11/29/18 1515:00 23:00 07:00 IntakeIntake Total 2052.495 ml 1349.23 ml 1058.18 ml OutputOutput Total 237 ml 355 ml 268 ml BalanceBalance 1815.495 ml 994.23 ml 790.18 ml Results Result Diagram: 11/29/18 0430 11/29/18 0453 Results 24hrs Laboratory Tests Test 11/28/18 18:19 11/28/18 21:16 11/29/18 01:07 11/29/18 04:30 Bedside Glucose 198 167 163 White Blood Count 8.6 # Red Blood Count 2.91 L Hemoglobin 8.2 L Hematocrit 26.9 L Mean Corpuscular 92.4 Volume Mean Corpuscular 28.2 L Hemoglobin Mean Corpuscular 30.5 L Hemoglobin Concent Red Cell 17.2 H Distribution Width Platelet Count 193 # Mean Platelet Volume 10.7 H Immature 0.700 H Granulocytes % Neutrophils % Segmented 98 H Neutrophils % (Manual) Lymphocytes % Lymphocytes % 1 L (Manual) Monocytes % Monocytes % (Manual) 1 Eosinophils % Basophils % Nucleated Red Blood 0.0 Cells % Immature 0.060 H Granulocytes # Neutrophils # Lymphocytes (Manual) 0.0 L Lymphocytes # Monocytes # Monocytes # (Manual) 0.0 L Eosinophils # Basophils # Nucleated Red Blood Cells # Platelet Estimate NORMAL Giant Platelets 2 H Polychromasia 1+ Poikilocytosis 2+ Anisocytosis 1+ Test 11/29/18 04:53 11/29/18 05:07 Sodium Level 137 Potassium Level 4.2 Chloride Level 102 Carbon Dioxide Level 35 H Anion Gap 0 L Blood Urea Nitrogen 22 H Creatinine 0.41 L Est Glomerular Filtrat Rate mL/min Glucose Level 178 Calcium Level 7.2 L Phosphorus Level 1.8 L Magnesium Level 2.2 Bedside Glucose 179 Medications Medication Current Medications Ondansetron HCl (Zofran Inj) 4 mg Q6H PRN IV NAUSEA AND/OR VOMITING; Start 11/26/18 at 01:00 Albuterol (Ventolin Hfa) 4 puff Q4H RESP THERAPY INH Last administered on 11/11 05/01at 05:50; Admin Dose 4 PUFF; Start 11/26/18 at 01:00 Albuterol (Ventolin Hfa) 4 puff Q2H RESP THERAPY PRN INH SHORTNESS OF BREATH Last administered on 11/28/18at 01:53; Admin Dose 4 PUFF; Start 11/26/18 at 01:00 Methylprednisolone Sodium Succinate (Solu-Medrol) 60 mg Q6 IV Last administered on 11/29/18at 05:47; Admin Dose 60 MG; Start 11/26/18 at 06:00 Acetaminophen (Tylenol Liquid) 650 mg Q6H PRN PO PAIN LEVEL 1-3 OR FEVER; Start 11/26/18 at 01:00 Morphine Sulfate (morphine) 2 mg Q4H PRN IV PAIN LEVEL 7-10; Start 11/26/18 at 01:00 Lorazepam (Ativan) 1 mg Q2H PRN IV ANXIETY; Start 11/26/18 at 01:00 Enoxaparin Sodium (Lovenox) 40 mg DAILY SC Last administered on 11/28/18at 10:09; Admin Dose 40 MG; Start 11/26/18 at 09:00 Vancomycin HCl (Vanco Iv Per Pharmacy) VANCOMYCIN PER PHARMACY PER PROTOCOL XX ; Start 11/26/18 at 03:00 Piperacillin Sod/ Tazobactam Sod 100 ml @ 200 mls/hr Q8 IVPB Last administered on 11/29/18 05:47; Admin Dose 200 MLS/HR; Start 11/26/18 at 06:00 Propofol 100 ml @ 1.32 mls/hr Q12H IV Last administered on 11/29/18 03:30; Admin Dose 3.96 MLS/HR; Start 11/26/18 at 03:00 Sodium Chloride 1,000 ml @ 40 mls/hr Q24H IV Last administered on 11/29/18 01:55; Admin Dose 75 MLS/HR; Start 11/26/18 at 08:00 Norepinephrine 250 ml @ 1.875 mls/ hr TITRATE IV Last administered on 11/26/18at 10:46; Admin Dose 37.5 MLS/HR; Start 11/26/18 at 09:00 Insulin Aspart (Novolog Insulin Pen) NOVOLOG *MILD* ALGORI... Q4 SC Last administered on 11/29/18 05:10; Admin Dose 1 UNIT; Start 11/26/18 at 13:00 Phenylephrine HCl 40 mg/Dextrose 250 ml @ 37.5 mls/hr TITRATE IV Last administered on 11/29/18 04:43; Admin Dose 6.75 MLS/HR; Start 11/26/18 at 11:00 Fentanyl 100 ml @ 2.5 mls/hr TITRATE IV Last administered on 11/29/18 04:00; Admin Dose 7.5 MLS/HR; Start 11/26/18 at 13:00 IV Flush (NS 10 ml) 10 ml PRN PRN IV IV PROTOCOL; Start 11/26/18 at 15:00 Lansoprazole (Prevacid) 30 mg DAILY@06 GTB Last administered on 11/29/18 05:47; Admin Dose 30 MG; Start 11/28/18 at 06:00 Fluconazole (Diflucan) 100 mg DAILY PO Last administered on 11/28/18at 10:06; Admin Dose 100 MG; Start 11/27/18 at 15:00 Vancomycin/Sodium Chloride 250 ml @ 125 mls/hr Q12H IVPB Last administered on 11/29/18at 04:16; Admin Dose 125 MLS/HR; Start 11/28/18 at 04:00 Sodium Phosphate (Neutra-Phos) 250 mg BID GTB Last administered on 11/28/18at 21:21; Admin Dose 250 MG; Start 11/28/18 at 09:00 Miscellaneous Information (*Rx Drug Level Order Reminder*) VANCOMYCIN TROUGH AT 1500 1500 ONCE XX ; Start 11/29/18 at 15:00; Stop 11/29/18 at 15:01 Midodrine (Proamatine) 5 mg TID@,,17 GTB ; Start 11/29/18 at 09:00 JODY BOYD NP Nov 29, 2018 12:52
[2018-11-29] MEDS: BALSAM PERU/CASTOR OIL 60 GM TUBE TOP SCH ×2 (13:05→20:34)
[2018-11-29] MEDS: FLUCONAZOLE 100 MG TAB PO SCH (13:05)
[2018-11-29] MEDS: NEUTRA-PHOS 250 MG PACKET GTB SCH ×2 (13:05→20:34)
[2018-11-29] MEDS: ENOXAPARIN 40 MG/0.4 ML SYG SC SCH (13:08)
[2018-11-30] VITALS (103 sets, daily range): BP systolic 82–124; BP diastolic 53–82; PULSE 60–81; RESP 13–26
[2018-11-30] MEDS: METHYLPREDNISOLONE 125 MG INJ IV SCH ×4 (00:57→17:43)
[2018-11-30] MEDS: INSULIN ASPART [NOVOLOG] 3 ML PEN SC SCH ×6 (00:58→21:35)
[2018-11-30] MEDS: ALBUTEROL HFA 8 GM INHALER INH SCH ×6 (01:27→20:45)
[2018-11-30] MEDS: SOD CHLORIDE 0.9% 1,000 ML IV SCH (02:16)
[2018-11-30] MEDS: PHENYLephrine 40 MG in DEXTROSE 5% 246 ML IV SCH (02:35)
[2018-11-30] MEDS: VANCOMYCIN 750 MG (PMX) 250 ML IVPB SCH ×2 (04:03→15:56)
[2018-11-30] MEDS: PIPER-TAZO 3.375 GM IV (PMX) 100 ML IVPB SCH ×3 (05:34→21:24)
[2018-11-30] MEDS: LANSOPRAZOLE 30 MG CAP GTB SCH (05:34)
[2018-11-30] MEDS: FENTAnyl (DRIP) 1000 mcg/100mL 100 ML IV SCH ×2 (06:07→21:52)
--- NOTE | 2018-11-30 09:56 | PN ---
Date/Time of Note Date/Time of Note DATE: 11/30/18 TIME: 09:54 Assessment/Plan VTE Prophylaxis Risk score (from Ns)>0 risk: 9 SCD applied (from Nsg): Yes Pharmacological prophylaxis: LMWH Lines/Catheters IV Catheter Type (from Nrsg): PICC Line Central line still needed: Yes Urinary Cath still in place: Yes Reason Cath still needed: other (indicate) (accurate in and out) Assessment/Plan Hospital Course 1. Septic shock. Etiology is secondary to pneumonia, urinary tract infection. The patient is currently on pressor support, IV fluids, broad spectrum antifungal and antimicrobial therapy. off pressors. cont gentle hydration. 2. Ventilatory-dependent respiratory failure. Vent settings and ABG was reviewed. Continue to monitor. Weaning per pulmonary. 3. Nonoliguric acute kidney injury. Etiology is secondary to hemodynamics. Renal function is improved. Continue to monitor. 4. Anemia. Continue to monitor hemoglobin and hematocrit levels. 5. Mineral bone disorder. The patient is hypophosphatemic. We will replete with potassium phosphate. 6. Mixed acid base disorder. The patient has a metabolic alkalosis with resp iratory compensation. Continue to monitor. 7. Elevated troponin, non-ST elevation myocardial infarction type 2. Continue medical management. Followup with cardiology. 8. History of coronary artery disease. Continue current treatment plan. 9. Volume overload. The patient has noted edema, etiology is secondary to sepsis, capillary leak, IV fluids. We will deescalate IV fluids, defer diuretic therapy in the setting of shock. If hemodynamics improve, we would initiate diuretics. 10. History of arrhythmia, status post pacemaker. Continue to monitor. 11. Diabetes. Continue current insulin regimen. 12. History of ovarian cancer stage IV, status post chemotherapy, radiation, currently in remission. 13. Hypothyroidism. 14. History of arthritis. 15. Gastrointestinal and deep vein thrombosis prophylaxis. Result Diagram: 11/30/18 0445 11/30/18 0445 Results 24hrs Laboratory Tests Test 11/29/18 13:02 11/29/18 14:54 11/29/18 17:27 11/29/18 20:31 Bedside Glucose 212 161 179 Vancomycin Level 12.2 Trough Test 11/30/18 00:51 11/30/18 04:45 11/30/18 05:38 11/30/18 07:00 Bedside Glucose 206 175 White Blood Count 5.5 # Red Blood Count 2.98 L Hemoglobin 8.5 L Hematocrit 27.2 L Mean Corpuscular 91.3 Volume Mean Corpuscular 28.5 L Hemoglobin Mean Corpuscular 31.3 L Hemoglobin Concen t Red Cell 17.2 H Distribution Width Platelet Count 177 Mean Platelet 11.0 H Volume Immature 0.700 H Granulocytes % Neutrophils % 95.4 H Lymphocytes % 1.3 L Monocytes % 2.4 Eosinophils % 0.0 Basophils % 0.2 Nucleated Red 0.0 Blood Cells % Immature 0.040 H Granulocytes # Neutrophils # 5.3 Lymphocytes # 0.1 L Monocytes # 0.1 L Eosinophils # 0.0 Basophils # 0.0 Nucleated Red 0.0 Blood Cells # Sodium Level 137 Potassium Level 4.2 Chloride Level 100 Carbon Dioxide 33 H Level Anion Gap 4 L Blood Urea 23 H Nitrogen Creatinine 0.40 L Est Glomerular Filtrat Rate mL/min Glucose Level 200 Calcium Level 7.0 L Phosphorus Level 2.0 L Magnesium Level 2.2 Blood Gas Blood arterial Specimen Source Arterial Blood 11/30/2018 8:20:3 Date Drawn 7 AM Arterial Blood pH 7.461 H (Temp corrected) Arterial Blood 46.1 H pCO2 (Temp correct) Arterial Blood 78.5 L pO2 (Temp corrected) Arterial Blood 32.1 H HCO3 Arterial Blood 7.5 H Base Excess Arterial Blood 94.9 L Oxygen Saturation Jordi Test ACCEPTAB Arterial Blood Right Radial Gas Puncture Site Arterial 0.3 Blood Carboxyhemo globin Arterial Blood 0.2 Methemoglobin Blood Gas A-a O2 117.5 H Differential Oxyhemoglobin 94.4 Percent Blood Gas 37.0 Temperature Blood Gas 14.0 Respiration Rate Blood Gas Actual 14 Respiration Rate Blood Gas VENT - AC Modality FiO2 35.0 Blood Gas Tidal 450.0 Volume Blood Gas Low 5.0 PEEP Setting Blood Gas DT Notified Whom Blood Gas 11/30/2018 8:33:1 Notified Time 7 AM Subjective 24 Hr Interval Summary Free Text/Dictation remains intubated. failed weaning trial yesterday. On fiO2 of 30% tolerating gentle IVF adequate urine output d/w rn Gen: opens eyes cv rrr pulm coarse bs abd soft, nd ,nt +bs ext: trace edema Exam/Review of Systems Exam Vitals Vital Signs Date Temp Pulse Resp B/P (MAP) Pulse Ox O2 O2 Flow FiO2 Time Delivery Rate 11/30/18 67 08:00 11/30/18 19 105/64 100 06:15 (78) 11/30/18 97.7 Mechanical 06:00 Ventilator 11/30/18 35 05:49 Intake and Output 11/29/18 11/29/18 11/30/18 1515:00 23:00 07:00 IntakeIntake Total 833.36 ml 954.78 ml 794.47 ml OutputOutput Total 225 ml 280 ml 255 ml BalanceBalance 608.36 ml 674.78 ml 539.47 ml Results Results 24hrs Laboratory Tests Test 11/29/18 13:02 11/29/18 14:54 11/29/18 17:27 11/29/18 20:31 Bedside Glucose 212 161 179 Vancomycin Level 12.2 Trough Test 11/30/18 00:51 11/30/18 04:45 11/30/18 05:38 11/30/18 07:00 Bedside Glucose 206 175 White Blood Count 5.5 # Red Blood Count 2.98 L Hemoglobin 8.5 L Hematocrit 27.2 L Mean Corpuscular 91.3 Volume Mean Corpuscular 28.5 L Hemoglobin Mean Corpuscular 31.3 L Hemoglobin Concen t Red Cell 17.2 H Distribution Width Platelet Count 177 Mean Platelet 11.0 H Volume Immature 0.700 H Granulocytes % Neutrophils % 95.4 H Lymphocytes % 1.3 L Monocytes % 2.4 Eosinophils % 0.0 Basophils % 0.2 Nucleated Red 0.0 Blood Cells % Immature 0.040 H Granulocytes # Neutrophils # 5.3 Lymphocytes # 0.1 L Monocytes # 0.1 L Eosinophils # 0.0 Basophils # 0.0 Nucleated Red 0.0 Blood Cells # Sodium Level 137 Potassium Level 4.2 Chloride Level 100 Carbon Dioxide 33 H Level Anion Gap 4 L Blood Urea 23 H Nitrogen Creatinine 0.40 L Est Glomerular Filtrat Rate mL/min Glucose Level 200 Calcium Level 7.0 L Phosphorus Level 2.0 L Magnesium Level 2.2 Blood Gas Blood arterial Specimen Source Arterial Blood 11/30/2018 8:20:3 Date Drawn 7 AM Arterial Blood pH 7.461 H (Temp corrected) Arterial Blood 46.1 H pCO2 (Temp correct) Arterial Blood 78.5 L pO2 (Temp corrected) Arterial Blood 32.1 H HCO3 Arterial Blood 7.5 H Base Excess Arterial Blood 94.9 L Oxygen Saturation Jordi Test ACCEPTAB Arterial Blood Right Radial Gas Puncture Site Arterial 0.3 Blood Carboxyhemo globin Arterial Blood 0.2 Methemoglobin Blood Gas A-a O2 117.5 H Differential Oxyhemoglobin 94.4 Percent Blood Gas 37.0 Temperature Blood Gas 14.0 Respiration Rate Blood Gas Actual 14 Respiration Rate Blood Gas VENT - AC Modality FiO2 35.0 Blood Gas Tidal 450.0 Volume Blood Gas Low 5.0 PEEP Setting Blood Gas DT Notified Whom Blood Gas 11/30/2018 8:33:1 Notified Time 7 AM Medications Medication Current Medications Ondansetron HCl (Zofran Inj) 4 mg Q6H PRN IV NAUSEA AND/OR VOMITING; Start 11/26/18 at 01:00 Albuterol (Ventolin Hfa) 4 puff Q4H RESP THERAPY INH Last administered on 11/30/18 09:28; Admin Dose 4 PUFF; Start 11/26/18 at 01:00 Albuterol (Ventolin Hfa) 4 puff Q2H RESP THERAPY PRN INH SHORTNESS OF BREATH Last administered on 11/28/18at 01:53; Admin Dose 4 PUFF; Start 11/26/18 at 01:00 Methylprednisolone Sodium Succinate (Solu-Medrol) 60 mg Q6 IV Last administered on 11/30/18at 05:34; Admin Dose 60 MG; Start 11/26/18 at 06:00 Acetaminophen (Tylenol Liquid) 650 mg Q6H PRN PO PAIN LEVEL 1-3 OR FEVER; Start 11/26/18 at 01:00 Morphine Sulfate (morphine) 2 mg Q4H PRN IV PAIN LEVEL 7-10; Start 11/26/18 at 01:00 Lorazepam (Ativan) 1 mg Q2H PRN IV ANXIETY; Start 11/26/18 at 01:00 Enoxaparin Sodium (Lovenox) 40 mg DAILY SC Last administered on 11/29/18at 13:08; Admin Dose 40 MG; Start 11/26/18 at 09:00 Vancomycin HCl (Vanco Iv Per Pharmacy) VANCOMYCIN PER PHARMACY PER PROTOCOL XX ; Start 11/26/18 at 03:00 Piperacillin Sod/ Tazobactam Sod 100 ml @ 200 mls/hr Q8 IVPB Last administered on 11/30/18at 05:34; Admin Dose 200 MLS/HR; Start 11/26/18 at 06:00 Propofol 100 ml @ 1.32 mls/hr Q12H IV Last administered on 11/29/18 20:47; Ad min Dose 3.96 MLS/HR; Start 11/26/18 at 03:00 Sodium Chloride 1,000 ml @ 40 mls/hr Q24H IV Last administered on 11/30/18 02:16; Admin Dose 40 MLS/HR; Start 11/26/18 at 08:00 Norepinephrine 250 ml @ 1.875 mls/ hr TITRATE IV Last administered on 11/26/18at 10:46; Admin Dose 37.5 MLS/HR; Start 11/26/18 at 09:00 Insulin Aspart (Novolog Insulin Pen) NOVOLOG *MILD* ALGORI... Q4 SC Last administered on 11/30/18 05:41; Admin Dose 1 UNIT; Start 11/26/18 at 13:00 Phenylephrine HCl 40 mg/Dextrose 250 ml @ 37.5 mls/hr TITRATE IV Last administered on 11/30/18 02:35; Admin Dose 3 MLS/HR; Start 11/26/18 at 11:00 Fentanyl 100 ml @ 2.5 mls/hr TITRATE IV Last administered on 11/30/18 06:07; Admin Dose 7.5 MLS/HR; Start 11/26/18 at 13:00 IV Flush (NS 10 ml) 10 ml PRN PRN IV IV PROTOCOL; Start 11/26/18 at 15:00 Lansoprazole (Prevacid) 30 mg DAILY@06 GTB Last administered on 11/30/18 05:34; Admin Dose 30 MG; Start 11/28/18 at 06:00 Fluconazole (Diflucan) 100 mg DAILY PO Last administered on 11/29/18 13:05; Admin Dose 100 MG; Start 11/27/18 at 15:00 Vancomycin/Sodium Chloride 250 ml @ 125 mls/hr Q12H IVPB Last administered on 11/30/18 04:03; Admin Dose 125 MLS/HR; Start 11/28/18 at 04:00 Sodium Phosphate (Neutra-Phos) 250 mg BID GTB Last administered on 11/29/18 20:34; Admin Dose 250 MG; Start 11/28/18 at 09:00 Midodrine (Proamatine) 5 mg TID@,, GTB Last administered on 11/29/18at 17:28; Admin Dose 5 MG; Start 11/29/18 at 09:00 JW WESTON MD Nov 30, 2018 09:56
--- NOTE | 2018-11-30 10:18 | CONS ---
Consult Date/Type/Reason Admit Date/Time Nov 25, 2018 at 23:59 Initial Consult Date 11/26/18 Type of Consult Pulmonary Requesting Provider: SHAUN CHRISTENSEN DO Date/Time of Note DATE: 11/30/18 TIME: 10:17 Subjective Continues vasopressors. Failed weaning trial yesterday. Opens eyes follows simple commands this morning on decrease sedation. Chest x-ray shows no significant changes chronic right lung disease. Objective Vital Signs Date Temp Pulse Resp B/P (MAP) Pulse Ox O2 O2 Flow FiO2 Time Delivery Rate 11/30/18 67 08:00 11/30/18 105/64 100 06:15 (78) 11/30/18 97.7 Mechanical 06:00 Ventilator 11/30/18 35 05:49 Intake and Output 11/29/18 11/29/18 11/30/18 1414:59 22:59 06:59 IntakeIntake Total 769.86 ml 1036.28 ml 879.68 ml OutputOutput Total 225 ml 280 ml 255 ml BalanceBalance 544.86 ml 756.28 ml 624.68 ml Exam PHYSICAL EXAMINATION: GENERAL: Thin lady, orally intubated on mechanical ventilation, appears comfortable at rest. VITAL SIGNS: NECK: Supple. No JVD or lymphadenopathy. CARDIAC: S1, S2. No added sounds or murmurs. CHEST: Diminished air entry bilaterally. ABDOMEN: Soft, nontender. No guarding or rebound. EXTREMITIES: No cyanosis, clubbing, or edema. NEUROLOGIC: Generalized weakness. Vent Setting Ventilator Support Mode: AC Fraction of Inspired Oxygen pe: 35 Positive End Expiratory Pressu: 5.0 Results/Medications Result Diagram: 11/30/18 0445 11/30/18 0445 Results 24 hrs Laboratory Tests Test 11/29/18 13:02 11/29/18 14:54 11/29/18 17:27 11/29/18 20:31 Bedside Glucose 212 161 179 Vancomycin Level 12.2 Trough Test 11/30/18 00:51 11/30/18 04:45 11/30/18 05:38 11/30/18 07:00 Bedside Glucose 206 175 White Blood Count 5.5 # Red Blood Count 2.98 L Hemoglobin 8.5 L Hematocrit 27.2 L Mean Corpuscular 91.3 Volume Mean Corpuscular 28.5 L Hemoglobin Mean Corpuscular 31.3 L Hemoglobin Concen t Red Cell 17.2 H Distribution Width Platelet Count 177 Mean Platelet 11.0 H Volume Immature 0.700 H Granulocytes % Neutrophils % 95.4 H Lymphocytes % 1.3 L Monocytes % 2.4 Eosinophils % 0.0 Basophils % 0.2 Nucleated Red 0.0 Blood Cells % Immature 0.040 H Granulocytes # Neutrophils # 5.3 Lymphocytes # 0.1 L Monocytes # 0.1 L Eosinophils # 0.0 Basophils # 0.0 Nucleated Red 0.0 Blood Cells # Sodium Level 137 Potassium Level 4.2 Chloride Level 100 Carbon Dioxide 33 H Level Anion Gap 4 L Blood Urea 23 H Nitrogen Creatinine 0.40 L Est Glomerular Filtrat Rate mL/min Glucose Level 200 Calcium Level 7.0 L Phosphorus Level 2.0 L Magnesium Level 2.2 Blood Gas Blood arterial Specimen Source Arterial Blood 11/30/2018 8:20:3 Date Drawn 7 AM Arterial Blood pH 7.461 H (Temp corrected) Arterial Blood 46.1 H pCO2 (Temp correct) Arterial Blood 78.5 L pO2 (Temp corrected) Arterial Blood 32.1 H HCO3 Arterial Blood 7.5 H Base Excess Arterial Blood 94.9 L Oxygen Saturation Jordi Test ACCEPTAB Arterial Blood Right Radial Gas Puncture Site Arterial 0.3 Blood Carboxyhemo globin Arterial Blood 0.2 Methemoglobin Blood Gas A-a O2 117.5 H Differential Oxyhemoglobin 94.4 Percent Blood Gas 37.0 Temperature Blood Gas 14.0 Respiration Rate Blood Gas Actual 14 Respiration Rate Blood Gas VENT - AC Modality FiO2 35.0 Blood Gas Tidal 450.0 Volume Blood Gas Low 5.0 PEEP Setting Blood Gas DT Notified Whom Blood Gas 11/30/2018 8:33:1 Notified Time 7 AM Medications Current Medications Ondansetron HCl (Zofran Inj) 4 mg Q6H PRN IV NAUSEA AND/OR VOMITING; Start 11/26/18 at 01:00 Albuterol (Ventolin Hfa) 4 puff Q4H RESP THERAPY INH Last administered on 11/30/18at 09:28; Admin Dose 4 PUFF; Start 11/26/18 at 01:00 Albuterol (Ventolin Hfa) 4 puff Q2H RESP THERAPY PRN INH SHORTNESS OF BREATH Last administered on 11/28/18at 01:53; Admin Dose 4 PUFF; Start 11/26/18 at 01:00 Methylprednisolone Sodium Succinate (Solu-Medrol) 60 mg Q6 IV Last administered on 11/30/18 05:34; Admin Dose 60 MG; Start 11/26/18 at 06:00 Acetaminophen (Tylenol Liquid) 650 mg Q6H PRN PO PAIN LEVEL 1-3 OR FEVER; Start 11/26/18 at 01:00 Morphine Sulfate (morphine) 2 mg Q4H PRN IV PAIN LEVEL 7-10; Start 11/26/18 at 01:00 Lorazepam (Ativan) 1 mg Q2H PRN IV ANXIETY; Start 11/26/18 at 01:00 Enoxaparin Sodium (Lovenox) 40 mg DAILY SC Last administered on 11/29/18at 13:08; Admin Dose 40 MG; Start 11/26/18 at 09:00 Vancomycin HCl (Vanco Iv Per Pharmacy) VANCOMYCIN PER PHARMACY PER PROTOCOL XX ; Start 11/26/18 at 03:00 Piperacillin Sod/ Tazobactam Sod 100 ml @ 200 mls/hr Q8 IVPB Last administered on 11/30/18 05:34; Admin Dose 200 MLS/HR; Start 11/26/18 at 06:00 Propofol 100 ml @ 1.32 mls/hr Q12H IV Last administered on 11/29/18 20:47; Admin Dose 3.96 MLS/HR; Start 11/26/18 at 03:00 Sodium Chloride 1,000 ml @ 40 mls/hr Q24H IV Last administered on 11/30/18 02:16; Admin Dose 40 MLS/HR; Start 11/26/18 at 08:00 Norepinephrine 250 ml @ 1.875 mls/ hr TITRATE IV Last administered on 11/26/18at 10:46; Admin Dose 37.5 MLS/HR; Start 11/26/18 at 09:00 Insulin Aspart (Novolog Insulin Pen) NOVOLOG *MILD* ALGORI... Q4 SC Last administered on 11/30/18at 05:41; Admin Dose 1 UNIT; Start 11/26/18 at 13:00 Phenylephrine HCl 40 mg/Dextrose 250 ml @ 37.5 mls/hr TITRATE IV Last administered on 11/30/18at 02:35; Admin Dose 3 MLS/HR; Start 11/26/18 at 11:00 Fentanyl 100 ml @ 2.5 mls/hr TITRATE IV Last administered on 11/30/18 06:07; Admin Dose 7.5 MLS/HR; Start 11/26/18 at 13:00 IV Flush (NS 10 ml) 10 ml PRN PRN IV IV PROTOCOL; Start 11/26/18 at 15:00 Lansoprazole (Prevacid) 30 mg DAILY@06 GTB Last administered on 11/30/18 05:34; Admin Dose 30 MG; Start 11/28/18 at 06:00 Fluconazole (Diflucan) 100 mg DAILY PO Last administered on 11/29/18 13:05; Admin Dose 100 MG; Start 11/27/18 at 15:00 Vancomycin/Sodium Chloride 250 ml @ 125 mls/hr Q12H IVPB Last administered on 11/30/18at 04:03; Admin Dose 125 MLS/HR; Start 11/28/18 at 04:00 Sodium Phosphate (Neutra-Phos) 250 mg BID GTB Last administered on 11/29/18at 20:34; Admin Dose 250 MG; Start 11/28/18 at 09:00 Midodrine (Proamatine) 5 mg TID@09,13,17 GTB Last administered on 11/29/18 17:28; Admin Dose 5 MG; Start 11/29/18 at 09:00 Assessment/Plan Hospital Course (Demo Recall) IMPRESSION: 1. [id number] hypercapnic respiratory failure. 2. Likely healthcare-associated pneumonia and loculated effusion. 3. History of mitral valve replacement. 4. Septic shock likely secondary to above. Possible component of adrenal insufficiency PLAN: 1. Continue vasopressors. Titrate to keep map greater than 65. Check cortisol level 2. Decrease O2 as tolerated. 3. Attempt CPAP weaning trial again today. 4. Antibiotics. 5. Tube feeding as tolerated. Critical care time 40 minutes. Discussed with family at bedside. JESS SAUCEDO MD, [facility] Nov 30, 2018 10:18
[2018-11-30] MEDS: MIDODRINE 5 MG TAB GTB SCH ×3 (10:36→17:43)
[2018-11-30] MEDS: FLUCONAZOLE 100 MG TAB PO SCH (10:36)
[2018-11-30] MEDS: NEUTRA-PHOS 250 MG PACKET GTB SCH ×2 (10:36→21:24)
[2018-11-30] MEDS: BALSAM PERU/CASTOR OIL 60 GM TUBE TOP SCH ×2 (10:37→21:24)
[2018-11-30] MEDS: ENOXAPARIN 40 MG/0.4 ML SYG SC SCH (10:42)
--- NOTE | 2018-11-30 13:01 | CONS ---
Assessment/Plan Assessment/Plan Hospital Course (Demo Recall) No acute changes patient remains intubated, on Maikol-Synephrine drip, failed weaning trial this morning, no fevers. WBC 5.5 H&H 8.5 and 27.2 platelets 77 neutrophils 95.4 BUN 23 creatinine 0.40 Microbiology: Urine and sputum culture grew Nicole albicans Chest x-ray this morning revealed stable patchy infiltrates throughout the right lung. Please see full report in the chart Antimicrobials: Vancomycin, fluconazole, Zosyn Indwelling: Endotracheal tube, NG tube, Das, right upper extremity PICC line placed yesterday Physical examination: This is a chronically ill-appearing wasted elderly woman who is intubated sedated in no distress. Head atraumatic normocephalic neck is supple chest rise symmetrical breath sounds diminished bases heart: S1-S2 abdomen soft bowel sounds present extremities without cyanosis Assessment: 1. Severe sepsis with shock 2. Acute on chronic hypoxemic respiratory failure 3. Bilateral pneumonia 4. Nicole albicans UTI 5. Coronary artery disease with a history of mitral valve replacement Plan: Remains hemodynamically unstable, continue antibiotics, vent support per pulmonary Discussed with family at bedside Consultation Date/Type/Reason Admit Date/Time Nov 25, 2018 at 23:59 Initial Consult Date 11/26/18 Type of Consult id Requesting Provider: SHAUN CHRISTENSEN DO Date/Time of Note DATE: 11/30/18 TIME: 13:00 Exam/Review of Systems Exam Vitals Vital Signs Date Temp Pulse Resp B/P (MAP) Pulse Ox O2 O2 Flow FiO2 Time Delivery Rate 11/30/18 65 12:00 11/30/18 19 105/64 100 06:15 (78) 11/30/18 97.7 Mechanical 06:00 Ventilator 11/30/18 35 05:49 Intake and Output 11/29/18 11/29/18 11/30/18 1515:00 23:00 07:00 IntakeIntake Total 833.36 ml 954.78 ml 794.47 ml OutputOutput Total 225 ml 280 ml 255 ml BalanceBalance 608.36 ml 674.78 ml 539.47 ml Results Result Diagram: 11/30/18 0445 11/30/18 0445 Results 24hrs Laboratory Tests Test 11/29/18 13:02 11/29/18 14:54 4/19/19 17:27 11/29/18 20:31 Bedside Glucose 212 161 179 Vancomycin Level 12.2 Trough Test 11/30/18 00:51 11/30/18 04:45 11/30/18 05:38 11/30/18 07:00 Bedside Glucose 206 175 White Blood Count 5.5 # Red Blood Count 2.98 L Hemoglobin 8.5 L Hematocrit 27.2 L Mean Corpuscular 91.3 Volume Mean Corpuscular 28.5 L Hemoglobin Mean Corpuscular 31.3 L Hemoglobin Concen t Red Cell 17.2 H Distribution Width Platelet Count 177 Mean Platelet 11.0 H Volume Immature 0.700 H Granulocytes % Neutrophils % 95.4 H Lymphocytes % 1.3 L Monocytes % 2.4 Eosinophils % 0.0 Basophils % 0.2 Nucleated Red 0.0 Blood Cells % Immature 0.040 H Granulocytes # Neutrophils # 5.3 Lymphocytes # 0.1 L Monocytes # 0.1 L Eosinophils # 0.0 Basophils # 0.0 Nucleated Red 0.0 Blood Cells # Sodium Level 137 Potassium Level 4.2 Chloride Level 100 Carbon Dioxide 33 H Level Anion Gap 4 L Blood Urea 23 H Nitrogen Creatinine 0.40 L Est Glomerular Filtrat Rate mL/min Glucose Level 200 Calcium Level 7.0 L Phosphorus Level 2.0 L Magnesium Level 2.2 Blood Gas Blood arterial Specimen Source Arterial Blood 11/30/2018 8:20:3 Date Drawn 7 AM Arterial Blood pH 7.461 H (Temp corrected) Arterial Blood 46.1 H pCO2 (Temp correct) Arterial Blood 78.5 L pO2 (Temp corrected) Arterial Blood 32.1 H HCO3 Arterial Blood 7.5 H Base Excess Arterial Blood 94.9 L Oxygen Saturation Jordi Test ACCEPTAB Arterial Blood Right Radial Gas Puncture Site Arterial 0.3 Blood Carboxyhemo globin Arterial Blood 0.2 Methemoglobin Blood Gas A-a O2 117.5 H Differential Oxyhemoglobin 94.4 Percent Blood Gas 37.0 Temperature Blood Gas 14.0 Respiration Rate Blood Gas Actual 14 Respiration Rate Blood Gas VENT - AC Modality FiO2 35.0 Blood Gas Tidal 450.0 Volume Blood Gas Low 5.0 PEEP Setting Blood Gas DT Notified Whom Blood Gas 11/30/2018 8:33:1 Notified Time 7 AM Test 11/30/18 10:29 Bedside Glucose 226 H Medications Medication Current Medications Ondansetron HCl (Zofran Inj) 4 mg Q6H PRN IV NAUSEA AND/OR VOMITING; Start 11/26/18 at 01:00 Albuterol (Ventolin Hfa) 4 puff Q4H RESP THERAPY INH Last administered on 11/30/18 09:28; Admin Dose 4 PUFF; Start 11/26/18 at 01:00 Albuterol (Ventolin Hfa) 4 puff Q2H RESP THERAPY PRN INH SHORTNESS OF BREATH Last administered on 11/28/18 01:53; Admin Dose 4 PUFF; Start 11/26/18 at 01:00 Methylprednisolone Sodium Succinate (Solu-Medrol) 60 mg Q6 IV Last administered on 11/30/18 05:34; Admin Dose 60 MG; Start 11/26/18 at 06:00 Acetaminophen (Tylenol Liquid) 650 mg Q6H PRN PO PAIN LEVEL 1-3 OR FEVER; Start 11/26/18 at 01:00 Morphine Sulfate (morphine) 2 mg Q4H PRN IV PAIN LEVEL 7-10; Start 11/26/18 at 01:00 Lorazepam (Ativan) 1 mg Q2H PRN IV ANXIETY; Start 11/26/18 at 01:00 Enoxaparin Sodium (Lovenox) 40 mg DAILY SC Last administered on 11/30/18 10:42; Admin Dose 40 MG; Start 11/26/18 at 09:00 Vancomycin HCl (Vanco Iv Per Pharmacy) VANCOMYCIN PER PHARMACY PER PROTOCOL XX ; Start 11/26/18 at 03:00 Piperacillin Sod/ Tazobactam Sod 100 ml @ 200 mls/hr Q8 IVPB Last administered on 11/30/18 05:34; Admin Dose 200 MLS/HR; Start 11/26/18 at 06:00 Propofol 100 ml @ 1.32 mls/hr Q12H IV Last administered on 11/29/18 20:47; Admin Dose 3.96 MLS/HR; Start 11/26/18 at 03:00 Sodium Chloride 1,000 ml @ 40 mls/hr Q24H IV Last administered on 11/30/18 02:16; Admin Dose 40 MLS/HR; Start 11/26/18 at 08:00 Norepinephrine 250 ml @ 1.875 mls/ hr TITRATE IV Last administered on 11/26/18 10:46; Admin Dose 37.5 MLS/HR; Start 11/26/18 at 09:00 Insulin Aspart (Novolog Insulin Pen) NOVOLOG *MILD* ALGORI... Q4 SC Last administered on 11/30/18 10:40; Admin Dose 3 UNIT; Start 11/26/18 at 13:00 Phenylephrine HCl 40 mg/Dextrose 250 ml @ 37.5 mls/hr TITRATE IV Last ad ministered on 11/30/18 02:35; Admin Dose 3 MLS/HR; Start 11/26/18 at 11:00 Fentanyl 100 ml @ 2.5 mls/hr TITRATE IV Last administered on 11/30/18 06:07; Admin Dose 7.5 MLS/HR; Start 11/26/18 at 13:00 IV Flush (NS 10 ml) 10 ml PRN PRN IV IV PROTOCOL; Start 11/26/18 at 15:00 Lansoprazole (Prevacid) 30 mg DAILY@06 GTB Last administered on 11/30/18 05:34; Admin Dose 30 MG; Start 11/28/18 at 06:00 Fluconazole (Diflucan) 100 mg DAILY PO Last administered on 11/30/18 10:36; Admin Dose 100 MG; Start 11/27/18 at 15:00 Vancomycin/Sodium Chloride 250 ml @ 125 mls/hr Q12H IVPB Last administered on 11/30/18 04:03; Admin Dose 125 MLS/HR; Start 11/28/18 at 04:00 Sodium Phosphate (Neutra-Phos) 250 mg BID GTB Last administered on 11/30/18 10:36; Admin Dose 250 MG; Start 11/28/18 at 09:00 Midodrine (Proamatine) 5 mg TID@,,17 GTB Last administered on 11/30/18 10:36; Admin Dose 5 MG; Start 11/29/18 at 09:00 Miscellaneous Information (*Rx Drug Level Order Reminder*) VANCO TROUGH ON 11/12. .. 1500 ONCE XX ; Start 12/01/18 at 15:00; Stop 12/01/18 at 15:01 JODY BOYD NP Nov 30, 2018 13:01
[2018-11-30] MEDS: PROPOFOL 100 ML IV SCH (15:56)
[2018-11-30] MEDS ORDERED: ACET250T22 PO (17:01)
[2018-11-30] MEDS ORDERED: ATOR10TA65 PO (17:01)
[2018-11-30] MEDS ORDERED: ASPI-699 PO (17:01)
[2018-11-30] MEDS ORDERED: FURO40TA4 PO (17:01)
[2018-11-30] MEDS ORDERED: CYAN100018 PO (17:01)
[2018-11-30] MEDS ORDERED: ALEN70TA5 PO (17:01)
[2018-11-30] MEDS ORDERED: POTA8CAP PO (19:17)
[2018-11-30] MEDS ORDERED: ACET325T33 PO (19:17)
[2018-11-30] MEDS ORDERED: LEVO50TA89 PO (19:17)
[2018-11-30] MEDS ORDERED: MAGN400T27 PO (19:17)
[2018-12-01] VITALS (90 sets, daily range): BP systolic 86–134; BP diastolic 53–72; PULSE 61–73; RESP 10–28
[2018-12-01] MEDS: METHYLPREDNISOLONE 125 MG INJ IV SCH ×4 (01:10→17:06)
[2018-12-01] MEDS: INSULIN ASPART [NOVOLOG] 3 ML PEN SC SCH ×6 (01:16→21:12)
[2018-12-01] MEDS: ALBUTEROL HFA 8 GM INHALER INH SCH ×6 (01:37→23:28)
[2018-12-01] MEDS: PROPOFOL 100 ML IV SCH ×2 (03:41→15:00)
[2018-12-01] MEDS: VANCOMYCIN 750 MG (PMX) 250 ML IVPB SCH ×2 (03:41→16:25)
[2018-12-01] MEDS: LANSOPRAZOLE 30 MG CAP GTB SCH (06:17)
[2018-12-01] MEDS: PIPER-TAZO 3.375 GM IV (PMX) 100 ML IVPB SCH ×3 (06:18→21:08)
[2018-12-01] MEDS: FLUCONAZOLE 100 MG TAB PO SCH (08:48)
[2018-12-01] MEDS: ENOXAPARIN 40 MG/0.4 ML SYG SC SCH (08:48)
[2018-12-01] MEDS: NEUTRA-PHOS 250 MG PACKET GTB SCH ×2 (08:49→21:07)
[2018-12-01] MEDS: MIDODRINE 5 MG TAB GTB SCH ×3 (08:49→17:05)
--- NOTE | 2018-12-01 09:42 | CONS ---
Consult Date/Type/Reason Admit Date/Time Nov 25, 2018 at 23:59 Initial Consult Date 11/26/18 Type of Consult Pulmonary Requesting Provider: SHAUN CHRISTENSEN DO Date/Time of Note DATE: 12/01/18 TIME: 09:40 Subjective Patient opens eyes and follows simple commands. Weaned off mechanical ventilation appears comfortable on low-dose propofol and fentanyl. Objective Vital Signs Date Temp Pulse Resp B/P (MAP) Pulse Ox O2 O2 Flow FiO2 Time Delivery Rate 12/01/18 66 20 99/60 (73) 97 Mechanical 09:00 Ventilator 12/01/18 35 08:00 12/01/18 97.6 08:00 Intake and Output 11/30/18 11/30/18 12/01/18 1515:00 23:00 07:00 IntakeIntake Total 968.03 ml 803.095 ml 649.175 ml OutputOutput Total 250 ml 380 ml 245 ml BalanceBalance 718.03 ml 423.095 ml 404.175 ml Exam PHYSICAL EXAMINATION: GENERAL: Thin lady, orally intubated on mechanical ventilation, appears comfortable at rest. VITAL SIGNS: NECK: Supple. No JVD or lymphadenopathy. CARDIAC: S1, S2. No added sounds or murmurs. CHEST: Diminished air entry bilaterally. ABDOMEN: Soft, nontender. No guarding or rebound. EXTREMITIES: No cyanosis, clubbing, or edema. NEUROLOGIC: Generalized weakness. Vent Setting Ventilator Support Mode: AC Fraction of Inspired Oxygen pe: 35 Positive End Expiratory Pressu: 5.0 Results/Medications Result Diagram: 12/01/18 0350 12/01/18 0350 Results 24 hrs Laboratory Tests Test 11/30/18 10:29 11/30/18 13:11 11/30/18 17:43 11/30/18 21:27 Bedside Glucose 226 H 187 195 190 Test 12/01/18 01:06 12/01/18 03:50 12/01/18 05:24 12/01/18 08:41 Bedside Glucose 200 186 166 White Blood Count 5.3 Red Blood Count 2.77 L Hemoglobin 7.9 L Hematocrit 25.2 L Mean Corpuscular 91.0 Volume Mean Corpuscular 28.5 L Hemoglobin Mean Corpuscular 31.3 L Hemoglobin Concent Red Cell 17.1 H Distribution Width Platelet Count 157 Mean Platelet Volume 11.3 H Immature 0.800 H Granulocytes % Neutrophils % 95.4 H Lymphocytes % 1.5 L Monocytes % 2.1 Eosinophils % 0.0 Basophils % 0.2 Nucleated Red Blood 0.0 Cells % Immature 0.040 H Granulocytes # Neutrophils # 5.0 Lymphocytes # 0.1 L Monocytes # 0.1 L Eosinophils # 0.0 Basophils # 0.0 Nucleated Red Blood 0.0 Cells # Sodium Level 137 Potassium Level 4.3 Chloride Level 100 Carbon Dioxide Level 33 H Anion Gap 4 L Blood Urea Nitrogen 22 H Creatinine 0.41 L Est Glomerular Filtrat Rate mL/min Glucose Level 177 Calcium Level 6.7 L Phosphorus Level 2.2 L Magnesium Level 2.2 Medications Current Medications Ondansetron HCl (Zofran Inj) 4 mg Q6H PRN IV NAUSEA AND/OR VOMITING; Start 11/26/18 at 01:00 Albuterol (Ventolin Hfa) 4 puff Q4H RESP THERAPY INH Last administered on 12/01/18at 01:37; Admin Dose 4 PUFF; Start 11/26/18 at 01:00 Albuterol (Ventolin Hfa) 4 puff Q2H RESP THERAPY PRN INH SHORTNESS OF BREATH Last administered on 11/28/18at 01:53; Admin Dose 4 PUFF; Start 11/26/18 at 01:00 Methylprednisolone Sodium Succinate (Solu-Medrol) 60 mg Q6 IV Last administered on 12/01/18at 06:17; Admin Dose 60 MG; Start 11/26/18 at 06:00 Acetaminophen (Tylenol Liquid) 650 mg Q6H PRN PO PAIN LEVEL 1-3 OR FEVER; Start 11/26/18 at 01:00 Morphine Sulfate (morphine) 2 mg Q4H PRN IV PAIN LEVEL 7-10; Start 11/26/18 at 01:00 Lorazepam (Ativan) 1 mg Q2H PRN IV ANXIETY; Start 11/26/18 at 01:00 Enoxaparin Sodium (Lovenox) 40 mg DAILY SC Last administered on 12/01/18at 08:48; Admin Dose 40 MG; Start 11/26/18 at 09:00 Vancomycin HCl (Vanco Iv Per Pharmacy) VANCOMYCIN PER PHARMACY PER PROTOCOL XX ; Start 11/26/18 at 03:00 Piperacillin Sod/ Tazobactam Sod 100 ml @ 200 mls/hr Q8 IVPB Last administered on 12/01/18 06:18; Admin Dose 200 MLS/HR; Start 11/26/18 at 06:00 Propofol 100 ml @ 1.32 mls/hr Q12H IV Last administered on 12/01/18 03:41; Admin Dose 3.96 MLS/HR; Start 11/26/18 at 03:00 Sodium Chloride 1,000 ml @ 40 mls/hr Q24H IV Last administered on 11/30/18 02:16; Admin Dose 40 MLS/HR; Start 11/26/18 at 08:00 Norepinephrine 250 ml @ 1.875 mls/ hr TITRATE IV Last administered on 11/26 10:46; Admin Dose 37.5 MLS/HR; Start 11/26/18 at 09:00 Insulin Aspart (Novolog Insulin Pen) NOVOLOG *MILD* ALGORI... Q4 SC Last administered on 12/01/18 08:47; Admin Dose 1 UNIT; Start 11/26/18 at 13:00 Phenylephrine HCl 40 mg/Dextrose 250 ml @ 37.5 mls/hr TITRATE IV Last administered on 11/30/18 02:35; Admin Dose 3 MLS/HR; Start 11/26/18 at 11:00 Fentanyl 100 ml @ 2.5 mls/hr TITRATE IV Last administered on 11/30/18 21:52; Admin Dose 7.5 MLS/HR; Start 11/26/18 at 13:00 IV Flush (NS 10 ml) 10 ml PRN PRN IV IV PROTOCOL; Start 11/26/18 at 15:00 Lansoprazole (Prevacid) 30 mg DAILY@06 GTB Last administered on 12/01/18 06:17; Admin Dose 30 MG; Start 11/28/18 at 06:00 Fluconazole (Diflucan) 100 mg DAILY PO Last administered on 12/01/18 08:48; Admin Dose 100 MG; Start 11/27/18 at 15:00 Vancomycin/Sodium Chloride 250 ml @ 125 mls/hr Q12H IVPB Last administered on 12/01/18 03:41; Admin Dose 125 MLS/HR; Start 11/28/18 at 04:00 Sodium Phosphate (Neutra-Phos) 250 mg BID GTB Last administered on 4/21/19at 08:49; Admin Dose 250 MG; Start 11/28/18 at 09:00 Midodrine (Proamatine) 5 mg TID@,,17 GTB Last administered on 12/01/18at 08:49; Admin Dose 5 MG; Start 11/29/18 at 09:00 Miscellaneous Information (*Rx Drug Level Order Reminder*) VANCO TROUGH ON 11/12... 1500 ONCE XX ; Start 12/01/18 at 15:00; Stop 12/01/18 at 15:01 Alendronate Sodium (Fosamax) 70 mg Mo@AC BREAKFAST PO ; Start 12/02/18 at 07:00 Assessment/Plan Hospital Course (Demo Recall) IMPRESSION: 1. Hhlut-my-lmalybd hypercapnic respiratory failure. 2. Likely healthcare-associated pneumonia and loculated effusion. 3. History of mitral valve replacement. 4. Septic shock likely secondary to above. Possible component of adrenal insufficiency PLAN: 1. Continue vasopressors. Titrate to keep map greater than 65. 2. Decrease O2 as tolerated. 3. Attempt CPAP weaning trial again today. 4. Antibiotics. 5. Tube feeding as tolerated. Critical care time 40 minutes. Discussed with family at bedside. JESS SAUCEDO MD, [facility] Dec 01, 2018 09:42
--- NOTE | 2018-12-01 11:49 | PN ---
Date/Time of Note Date/Time of Note DATE: 12/01/18 TIME: 11:45 Assessment/Plan VTE Prophylaxis Risk score (from Ns)>0 risk: 9 SCD applied (from Ns): Yes Pharmacological prophylaxis: LMWH Lines/Catheters IV Catheter Type (from Nrs): PICC Line Central line still needed: Yes Urinary Cath still in place: Yes Reason Cath still needed: urinary retention Assessment/Plan Hospital Course 1. Septic shock. Etiology is secondary to pneumonia, urinary tract infection. the pt is off of pressors, on midodrine. cont broad spectrum antifungal and antimicrobial therapy. 2. Ventilatory-dependent respiratory failure. Vent settings and ABG was re viewed. Continue to monitor. Weaning per pulmonary. 3. Nonoliguric acute kidney injury. Etiology is secondary to hemodynamics. Renal function is improved. Continue to monitor. 4. Anemia. Continue to monitor hemoglobin and hematocrit levels. 5. Mineral bone disorder. monitor ca and phos. replace ca 6. Mixed acid base disorder. The patient has a metabolic alkalosis with respiratory compensation. Continue to monitor. 7. Elevated troponin, non-ST elevation myocardial infarction type 2. Continue medical management. Followup with cardiology. 8. History of coronary artery disease. Continue current treatment plan. 9. Volume overload. The patient has noted edema, etiology is secondary to sepsis, capillary leak, IV fluids. will defer diuretic therapy for now given hypotensive episodes. 10. History of arrhythmia, status post pacemaker. Continue to monitor. 11. Diabetes. Continue current insulin regimen. 12. History of ovarian cancer stage IV, status post chemotherapy, radiation, currently in remission. 13. Hypothyroidism. 14. History of arthritis. 15. Gastrointestinal and deep vein thrombosis prophylaxis. Result Diagram: 12/01/18 0350 12/01/18 0350 Results 24hrs Laboratory Tests Test 11/30/18 13:11 11/30/18 17:43 11/30/18 21:27 12/01/18 01:06 Bedside Glucose 187 195 190 200 Test 12/01/18 03:50 12/01/18 05:24 12/01/18 08:41 White Blood Count 5.3 Red Blood Count 2.77 L Hemoglobin 7.9 L Hematocrit 25.2 L Mean Corpuscular 91.0 Volume Mean Corpuscular 28.5 L Hemoglobin Mean Corpuscular 31.3 L Hemoglobin Concent Red Cell 17.1 H Distribution Width Platelet Count 157 Mean Platelet Volume 11.3 H Immature 0.800 H Granulocytes % Neutrophils % 95.4 H Lymphocytes % 1.5 L Monocytes % 2.1 Eosinophils % 0.0 Basophils % 0.2 Nucleated Red Blood 0.0 Cells % Immature 0.040 H Granulocytes # Neutrophils # 5.0 Lymphocytes # 0.1 L Monocytes # 0.1 L Eosinophils # 0.0 Basophils # 0.0 Nucleated Red Blood 0.0 Cells # Sodium Level 137 Potassium Level 4.3 Chloride Level 100 Carbon Dioxide Level 33 H Anion Gap 4 L Blood Urea Nitrogen 22 H Creatinine 0.41 L Est Glomerular Filtrat Rate mL/min Glucose Level 177 Calcium Level 6.7 L Phosphorus Level 2.2 L Magnesium Level 2.2 Bedside Glucose 186 166 Subjective 24 Hr Interval Summary Free Text/Dictation failed cpap trial opens eyes remains intubated dbryson del rosario gen nad, intubated, follows simple commands cv rrr pulm coarse bs abd soft, nd, nt +bs ext: no edema Exam/Review of Systems Exam Vitals Vital Signs Date Temp Pulse Resp B/P (MAP) Pulse Ox O2 O2 Flow FiO2 Time Delivery Rate 12/01/18 66 20 99/60 (73) 97 Mechanical 09:00 Ventilator 12/01/18 35 08:00 12/01/18 97.6 08:00 Intake and Output 11/30/18 11/30/18 12/01/18 1515:00 23:00 07:00 IntakeIntake Total 968.03 ml 803.095 ml 649.175 ml OutputOutput Total 250 ml 380 ml 245 ml BalanceBalance 718.03 ml 423.095 ml 404.175 ml Results Results 24hrs Laboratory Tests Test 11/30/18 13:11 11/30/18 17:43 11/30/18 21:27 12/01/18 01:06 Bedside Glucose 187 195 190 200 Test 12/01/18 03:50 12/01/18 05:24 12/01/18 08:41 White Blood Count 5.3 Red Blood Count 2.77 L Hemoglobin 7.9 L Hematocrit 25.2 L Mean Corpuscular 91.0 Volume Mean Corpuscular 28.5 L Hemoglobin Mean Corpuscular 31.3 L Hemoglobin Concent Red Cell 17.1 H Distribution Width Platelet Count 157 Mean Platelet Volume 11.3 H Immature 0.800 H Granulocytes % Neutrophils % 95.4 H Lymphocytes % 1.5 L Monocytes % 2.1 Eosinophils % 0.0 Basophils % 0.2 Nucleated Red Blood 0.0 Cells % Immature 0.040 H Granulocytes # Neutrophils # 5.0 Lymphocytes # 0.1 L Monocytes # 0.1 L Eosinophils # 0.0 Basophils # 0.0 Nucleated Red Blood 0.0 Cells # Sodium Level 137 Potassium Level 4.3 Chloride Level 100 Carbon Dioxide Level 33 H Anion Gap 4 L Blood Urea Nitrogen 22 H Creatinine 0.41 L Est Glomerular Filtrat Rate mL/min Glucose Level 177 Calcium Level 6.7 L Phosphorus Level 2.2 L Magnesium Level 2.2 Bedside Glucose 186 166 Medications Medication Current Medications Ondansetron HCl (Zofran Inj) 4 mg Q6H PRN IV NAUSEA AND/OR VOMITING; Start 11/26/18 at 01:00 Albuterol (Ventolin Hfa) 4 puff Q4H RESP THERAPY INH Last administered on 12/01/18at 11:05; Admin Dose 4 PUFF; Start 11/26/18 at 01:00 Albuterol (Ventolin Hfa) 4 puff Q2H RESP THERAPY PRN INH SHORTNESS OF BREATH Last administered on 11/28/18at 01:53; Admin Dose 4 PUFF; Start 11/26/18 at 01:00 Methylprednisolone Sodium Succinate (Solu-Medrol) 60 mg Q6 IV Last administered on 12/01/18at 06:17; Admin Dose 60 MG; Start 11/26/18 at 06:00 Acetaminophen (Tylenol Liquid) 650 mg Q6H PRN PO PAIN LEVEL 1-3 OR FEVER; Start 11/26/18 at 01:00 Morphine Sulfate (morphine) 2 mg Q4H PRN IV PAIN LEVEL 7-10; Start 11/26/18 at 01:00 Lorazepam (Ativan) 1 mg Q2H PRN IV ANXIETY; Start 11/26/18 at 01:00 Enoxaparin Sodium (Lovenox) 40 mg DAILY SC Last administered on 12/01/18at 08:48; Admin Dose 40 MG; Start 11/26/18 at 09:00 Vancomycin HCl (Vanco Iv Per Pharmacy) VANCOMYCIN PER PHARMACY PER PROTOCOL XX ; Start 11/26/18 at 03:00 Piperacillin Sod/ Tazobactam Sod 100 ml @ 200 mls/hr Q8 IVPB Last administered on 12/01/18 06:18; Admin Dose 200 MLS/HR; Start 11/26/18 at 06:00 Propofol 100 ml @ 1.32 mls/hr Q12H IV Last administered on 12/01/18 03:41; Admin Dose 3.96 MLS/HR; Start 11/26/18 at 03:00 Sodium Chloride 1,000 ml @ 40 mls/hr Q24H IV Last administered on 11/30/18 02:16; Admin Dose 40 MLS/HR; Start 11/26/18 at 08:00 Norepinephrine 250 ml @ 1.875 mls/ hr TITRATE IV Last administered on 11/26/18 10:46; Admin Dose 37.5 MLS/HR; Start 11/26/18 at 09:00 Insulin Aspart (Novolog Insulin Pen) NOVOLOG *MILD* ALGORI... Q4 SC Last administered on 12/01/18 08:47; Admin Dose 1 UNIT; Start 11/26/18 at 13:00 Phenylephrine HCl 40 mg/Dextrose 250 ml @ 37.5 mls/hr TITRATE IV Last administered on 11/30/18 02:35; Admin Dose 3 MLS/HR; Start 11/26/18 at 11:00 Fentanyl 100 ml @ 2.5 mls/hr TITRATE IV Last administered on 11/30/18 21:52; Admin Dose 7.5 MLS/HR; Start 11/26/18 at 13:00 IV Flush (NS 10 ml) 10 ml PRN PRN IV IV PROTOCOL; Start 11/26/18 at 15:00 Lansoprazole (Prevacid) 30 mg DAILY@06 GTB Last administered on 12/01/18 06:17; Admin Dose 30 MG; Start 11/28/18 at 06:00 Fluconazole (Diflucan) 100 mg DAILY PO Last administered on 12/01/18 08:48; Admin Dose 100 MG; Start 11/27/18 at 15:00 Vancomycin/Sodium Chloride 250 ml @ 125 mls/hr Q12H IVPB Last administered on 12/01/18 03:41; Admin Dose 125 MLS/HR; Start 11/28/18 at 04:00 Sodium Phosphate (Neutra-Phos) 250 mg BID GTB Last administered on 12/01/18 08:49; Admin Dose 250 MG; Start 11/28/18 at 09:00 Midodrine (Proamatine) 5 mg TID@,,17 GTB Last administered on 12/01/18at 08:49; Admin Dose 5 MG; Start 11/29/18 at 09:00 Miscellaneous Information (*Rx Drug Level Order Reminder*) VANCO TROUGH ON 11/12... 1500 ONCE XX ; Start 12/01/18 at 15:00; Stop 12/01/18 at 15:01 Alendronate Sodium (Fosamax) 70 mg Mo@AC BREAKFAST PO ; Start 12/02/18 at 07:00 JW WESTON MD Dec 01, 2018 11:49
[2018-12-01] MEDS: BALSAM PERU/CASTOR OIL 60 GM TUBE TOP SCH ×2 (12:31→21:08)
--- NOTE | 2018-12-01 13:00 | CONS ---
Assessment/Plan Assessment/Plan Hospital Course (Demo Recall) Alert follows commands, looks comfortable on vent, off Maikol-Synephrine drip. No fevers. WBC 5.3 platelets 157 neutrophils 95.4 BUN 22 creatinine 0.41 Chest x-ray this morning revealed improving infiltrates Microbiology: Urine cx + Nicole albicans, sputum culture grew Nicole albicans/E coli Antimicrobials: Vancomycin, fluconazole, Zosyn Indwelling: Endotracheal tube, NG tube, Das, right upper extremity PICC line Physical examination: This is a chronically ill-appearing wasted elderly woman who is intubated sedated in no distress. Head atraumatic normocephalic neck is supple chest rise symmetrical breath sounds diminished bases heart: S1-S2 abdomen soft bowel sounds present extremities without cyanosis Assessment: 1. Severe sepsis with shock 2. Acute on chronic hypoxemic respiratory failure 3. Bilateral pneumonia 4. Nicole albicans UTI 5. Coronary artery disease with a history of mitral valve replacement Plan: Stable off pressors, failed weaning this am, continue antibiotics, vent support per pulmonary Discussed with family at bedside Consultation Date/Type/Reason Admit Date/Time Nov 25, 2018 at 23:59 Initial Consult Date 11/26/18 Type of Consult id Requesting Provider: SHAUN CHRISTENSEN DO Date/Time of Note DATE: 12/01/18 TIME: 12:59 Exam/Review of Systems Exam Vitals Vital Signs Date Temp Pulse Resp B/P (MAP) Pulse Ox O2 O2 Flow FiO2 Time Delivery Rate 12/01/18 64 21 115/58 93 12:15 (77) 12/01/18 97.7 Mechanical 12:00 Ventilator 12/01/18 35 08:00 Intake and Output 11/30/18 11/30/18 12/01/18 1515:00 23:00 07:00 IntakeIntake Total 968.03 ml 803.095 ml 649.175 ml OutputOutput Total 250 ml 380 ml 245 ml BalanceBalance 718.03 ml 423.095 ml 404.175 ml Results Result Diagram: 12/01/18 0350 12/01/18 0350 Results 24hrs Laboratory Tests Test 11/30/18 13:11 11/30/18 17:43 11/30/18 21:27 12/01/18 01:06 Bedside Glucose 187 195 190 200 Test 12/01/18 03:50 12/01/18 05:24 12/01/18 08:41 12/01/18 12:40 White Blood Count 5.3 Red Blood Count 2.77 L Hemoglobin 7.9 L Hematocrit 25.2 L Mean Corpuscular 91.0 Volume Mean Corpuscular 28.5 L Hemoglobin Mean Corpuscular 31.3 L Hemoglobin Concent Red Cell 17.1 H Distribution Width Platelet Count 157 Mean Platelet Volume 11.3 H Immature 0.800 H Granulocytes % Neutrophils % 95.4 H Lymphocytes % 1.5 L Monocytes % 2.1 Eosinophils % 0.0 Basophils % 0.2 Nucleated Red Blood 0.0 Cells % Immature 0.040 H Granulocytes # Neutrophils # 5.0 Lymphocytes # 0.1 L Monocytes # 0.1 L Eosinophils # 0.0 Basophils # 0.0 Nucleated Red Blood 0.0 Cells # Sodium Level 137 Potassium Level 4.3 Chloride Level 100 Carbon Dioxide Level 33 H Anion Gap 4 L Blood Urea Nitrogen 22 H Creatinine 0.41 L Est Glomerular Filtrat Rate mL/min Glucose Level 177 Calcium Level 6.7 L Phosphorus Level 2.2 L Magnesium Level 2.2 Bedside Glucose 186 166 177 Medications Medication Current Medications Ondansetron HCl (Zofran Inj) 4 mg Q6H PRN IV NAUSEA AND/OR VOMITING; Start 11/26/18 at 01:00 Albuterol (Ventolin Hfa) 4 puff Q4H RESP THERAPY INH Last administered on 12/01/18at 11:05; Admin Dose 4 PUFF; Start 11/26/18 at 01:00 Albuterol (Ventolin Hfa) 4 puff Q2H RESP THERAPY PRN INH SHORTNESS OF BREATH Last administered on 11/28/18at 01:53; Admin Dose 4 PUFF; Start 11/26/18 at 01:00 Methylprednisolone Sodium Succinate (Solu-Medrol) 60 mg Q6 IV Last administered on 12/01/18at 12:45; Admin Dose 60 MG; Start 11/26/18 at 06:00 Acetaminophen (Tylenol Liquid) 650 mg Q6H PRN PO PAIN LEVEL 1-3 OR FEVER; Start 11/26/18 at 01:00 Morphine Sulfate (morphine) 2 mg Q4H PRN IV PAIN LEVEL 7-10; Start 11/26/18 at 01:00 Lorazepam (Ativan) 1 mg Q2H PRN IV ANXIETY; Start 11/26/18 at 01:00 Enoxaparin Sodium (Lovenox) 40 mg DAILY SC Last administered on 12/01/18 08:48; Admin Dose 40 MG; Start 11/26/18 at 09:00 Vancomycin HCl (Vanco Iv Per Pharmacy) VANCOMYCIN PER PHARMACY PER PROTOCOL XX ; Start 11/26/18 at 03:00 Piperacillin Sod/ Tazobactam Sod 100 ml @ 200 mls/hr Q8 IVPB Last administered on 12/01/18 12:43; Admin Dose 200 MLS/HR; Start 11/26/18 at 06:00 Propofol 100 ml @ 1.32 mls/hr Q12H IV Last administered on 12/01/18 03:41; Admin Dose 3.96 MLS/HR; Start 11/26/18 at 03:00 Sodium Chloride 1,000 ml @ 40 mls/hr Q24H IV Last administered on 11/30/18 02:16; Admin Dose 40 MLS/HR; Start 11/26/18 at 08:00 Norepinephrine 250 ml @ 1.875 mls/ hr TITRATE IV Last administered on 11/26/18at 10:46; Admin Dose 37.5 MLS/HR; Start 11/26/18 at 09:00 Insulin Aspart (Novolog Insulin Pen) NOVOLOG *MILD* ALGORI... Q4 SC Last administered on 12/01/18 12:42; Admin Dose 1 UNIT; Start 11/26/18 at 13:00 Phenylephrine HCl 40 mg/Dextrose 250 ml @ 37.5 mls/hr TITRATE IV Last administered on 11/30/18at 02:35; Admin Dose 3 MLS/HR; Start 11/26/18 at 11:00 Fentanyl 100 ml @ 2.5 mls/hr TITRATE IV Last administered on 11/30/18 21:52; Admin Dose 7.5 MLS/HR; Start 11/26/18 at 13:00 IV Flush (NS 10 ml) 10 ml PRN PRN IV IV PROTOCOL; Start 11/26/18 at 15:00 Lansoprazole (Prevacid) 30 mg DAILY@06 GTB Last administered on 12/01/18 06:17; Admin Dose 30 MG; Start 11/28/18 at 06:00 Fluconazole (Diflucan) 100 mg DAILY PO Last administered on 4/21/19at 08:48; Admin Dose 100 MG; Start 11/27/18 at 15:00 Vancomycin/Sodium Chloride 250 ml @ 125 mls/hr Q12H IVPB Last administered on 12/01/18at 03:41; Admin Dose 125 MLS/HR; Start 11/28/18 at 04:00 Sodium Phosphate (Neutra-Phos) 250 mg BID GTB Last administered on 12/01/18at 08:49; Admin Dose 250 MG; Start 11/28/18 at 09:00 Midodrine (Proamatine) 5 mg TID@,,17 GTB Last administered on 12/01/18at 12:44; Admin Dose 5 MG; Start 11/29/18 at 09:00 Miscellaneous Information (*Rx Drug Level Order Reminder*) VANCO TROUGH ON 11/12... 1500 ONCE XX ; Start 12/01/18 at 15:00; Stop 12/01/18 at 15:01 Alendronate Sodium (Fosamax) 70 mg Mo@AC BREAKFAST PO ; Start 12/02/18 at 07:00 Calcium Gluconate 1 gm/Dextrose 110 ml @ 110 mls/hr ONCE ONCE IVPB ; Start 12/01/18 at 13:30; Stop 12/01/18 at 14:29 JODY BOYD NP Dec 01, 2018 13:00
[2018-12-01] MEDS ORDERED: CALCIUM GLUCONATE 10% 1 GM in DEXTROSE 5% 100 ML IVPB ONE (13:30)
[2018-12-01] MEDS: SOD CHLORIDE 0.9% 1,000 ML IV SCH (16:25)
[2018-12-01] MEDS: FENTAnyl (DRIP) 1000 mcg/100mL 100 ML IV SCH (21:03)
[2018-12-02] VITALS (36 sets, daily range): BP systolic 88–121; BP diastolic 55–72; PULSE 60–95; RESP 14–37
[2018-12-02] MEDS: INSULIN ASPART [NOVOLOG] 3 ML PEN SC SCH ×6 (01:00→21:39)
[2018-12-02] MEDS: PROPOFOL 100 ML IV SCH ×3 (03:07→21:56)
[2018-12-02] MEDS: ALBUTEROL HFA 8 GM INHALER INH SCH ×5 (04:36→21:05)
[2018-12-02] MEDS: VANCOMYCIN 750 MG (PMX) 250 ML IVPB SCH (04:57)
[2018-12-02] MEDS: PIPER-TAZO 3.375 GM IV (PMX) 100 ML IVPB SCH ×2 (06:59→13:50)
[2018-12-02] MEDS: LANSOPRAZOLE 30 MG CAP GTB SCH (06:59)
[2018-12-02] MEDS: METHYLPREDNISOLONE 125 MG INJ IV SCH ×5 (06:59→23:48)
[2018-12-02] MEDS: ALENDRONATE 70 MG TAB PO SCH ×2 (07:00→07:05)
--- NOTE | 2018-12-02 08:24 | PN ---
DATE: 12/02/2018 SUBJECTIVE: The patient remains critically ill on full ventilator support. The patient, however, is off pressor support. Urinary output has been marginal. No other acute events noted. No hemoptysis , hematemesis or hematochezia. OBJECTIVE: VITAL SIGNS: Blood pressure is 101/63, respirations 14, pulse 60, temperature 98.7. HEENT: Head is normocephalic. NECK: Supple. HEART: Regular rate. LUNGS: Show diminished breath sounds at the base. ABDOMEN: Soft, nontender to palpation. No rebound or guarding. EXTREMITIES: Negative for clubbing, cyanosis. Positive edema. DERMATOLOGIC: No rashes. MUSCULOSKELETAL: No joint effusion. NEUROLOGIC: The patient remains obtunded. MEDICATIONS: The patient's medications have been reviewed. LABORATORY DATA: From 12/02/2018 was reviewed. The patient's phosphorus level is 2.2, calcium 6.0. White count 3.8, hemoglobin 7.0, and platelet count is 128. The patient's ABG was reviewed. Microb iology was reviewed. IMAGING STUDIES: From 12/01/2018 was reviewed. ASSESSMENT AND PLAN: 1. Sepsis, status post shock. Etiology is secondary to pneumonia, urinary tract infection. The pat ient is currently off pressors, on midodrine. Continue current broad spectrum antibiotics and antifu ngal therapy. 2. Ventilator-dependent respiratory failure. Vent settings and ABG was reviewed. Continue to monit or. Weaning per pulmonary. 3. Nonoliguric acute kidney injury, etiology is secondary to hemodynamics. Renal function is improv ed. Continue to monitor. 4. Volume overload. The patient will be initiated on diuretic therapy. Currently, off pressors. 5. Anemia. Continue to monitor hemoglobin and hematocrit levels. Hemoglobin levels have been trend ing down. We will check stool for occult blood, and iron panel. Trend hemoglobin and hematocrit lev els. 6. Mineral bone disorder, monitor calcium and phosphorus levels. We will start the patient on vitam in D analogs. 7. Mixed acid base disorder. The patient has a metabolic alkalosis, respiratory compensation. Cont inue to monitor. 8. Non-ST elevation myocardial infarction, type 2. Continue medical management. Follow up with car diology. 9. History of coronary artery disease. Continue current treatment plan. 10. History of arrhythmia, status post pacemaker. 11. Diabetes. Continue current insulin regimen. 12. History of ovarian cancer stage IV, status post chemotherapy and radiation, currently in remissi on. 13. History of hypothyroidism. 14. History of arthritis. 15. Gastrointestinal and deep vein thrombosis prophylaxis. 16. Pancytopenia. We will continue to monitor closely. Consider a hematology consult. Dictated By: SHAUN CHRISTENSEN DO NR/NTS Conf#: [id number] DID#: [id number] CC: JESS SAUCEDO MD; STEVIE REN MD;*EndCC*
[2018-12-02] MEDS ORDERED: FUROSEMIDE 40 MG INJ IV ONE (08:30)
[2018-12-02] MEDS: ENOXAPARIN 40 MG/0.4 ML SYG SC SCH (08:43)
[2018-12-02] MEDS: FLUCONAZOLE 100 MG TAB PO SCH (08:45)
[2018-12-02] MEDS: NEUTRA-PHOS 250 MG PACKET GTB SCH ×2 (08:45→21:48)
[2018-12-02] MEDS: MIDODRINE 5 MG TAB GTB SCH ×3 (08:45→17:25)
[2018-12-02] MEDS: BALSAM PERU/CASTOR OIL 60 GM TUBE TOP SCH ×2 (08:46→21:50)
[2018-12-02] MEDS ORDERED: CALCITRIOL 1 MCG INJ IV ONE (09:30)
--- NOTE | 2018-12-02 10:02 | CONS ---
Consult Date/Type/Reason Admit Date/Time Nov 25, 2018 at 23:59 Initial Consult Date 11/26/18 Type of Consult Pulmonary Requesting Provider: SHAUN CHRISTENSEN DO Date/Time of Note DATE: 12/02/18 TIME: 10:00 Subjective Patient awake alert this morning on mechanical ventilation. Failed weaning trial and SIMV yesterday. Objective Vital Signs Date Temp Pulse Resp B/P (MAP) Pulse Ox O2 O2 Flow FiO2 Time Delivery Rate 12/02/18 40 08:00 12/02/18 70 14 111/63 95 07:00 (79) 12/02/18 Mechanical 06:00 Ventilator 12/02/18 98.7 04:00 Intake and Output 12/01/18 12/01/18 12/02/18 1515:00 23:00 07:00 IntakeIntake Total 1017.69 ml 833.88 ml 963 ml OutputOutput Total 275 ml 300 ml 240 ml BalanceBalance 742.69 ml 533.88 ml 723 ml Exam PHYSICAL EXAMINATION: GENERAL: Thin lady, orally intubated on mechanical ventilation, appears comfortable at rest. VITAL SIGNS: NECK: Supple. No JVD or lymphadenopathy. CARDIAC: S1, S2. No added sounds or murmurs. CHEST: Diminished air entry bilaterally. ABDOMEN: Soft, nontender. No guarding or rebound. EXTREMITIES: No cyanosis, clubbing, or edema. NEUROLOGIC: Generalized weakness. Vent Setting Ventilator Support Mode: AC Fraction of Inspired Oxygen pe: 40 Positive End Expiratory Pressu: 5.0 Results/Medications Result Diagram: 12/02/18 0504 12/02/18 0504 Results 24 hrs Laboratory Tests Test 12/01/18 12:40 12/01/18 15:14 12/01/18 17:07 12/01/18 20:38 Bedside Glucose 177 183 143 Vancomycin Level 15.0 Trough Test 12/02/18 05:04 12/02/18 06:51 12/02/18 09:18 White Blood Count 3.8 #L Red Blood Count 2.43 L Hemoglobin 7.0 L Hematocrit 21.7 L Mean Corpuscular 89.3 Volume Mean Corpuscular 28.8 L Hemoglobin Mean Corpuscular 32.3 Hemoglobin Concent Red Cell 17.3 H Distribution Width Platelet Count 128 L Mean Platelet Volume 11.1 H Immature 1.600 H Granulocytes % Neutrophils % Segmented 98 H Neutrophils % (Manual) Lymphocytes % 2 L (Manual) Eosinophils % Nucleated Red Blood 0.0 Cells % Immature 0.060 H Granulocytes # Neutrophils # Lymphocytes (Manual) 0.0 L Eosinophils # Platelet Estimate DECREASED Polychromasia 1+ Poikilocytosis 1+ Sodium Level 137 Potassium Level 3.7 Chloride Level 106 Carbon Dioxide Level 28 Anion Gap 3 L Blood Urea Nitrogen 21 H Creatinine 0.31 L Est Glomerular Filtrat Rate mL/min Glucose Level 152 Calcium Level 6.0 L Phosphorus Level 2.2 L Magnesium Level 1.9 Random Cortisol 5.3 Bedside Glucose 191 175 Medications Current Medications Ondansetron HCl (Zofran Inj) 4 mg Q6H PRN IV NAUSEA AND/OR VOMITING; Start 11/26/18 at 01:00 Albuterol (Ventolin Hfa) 4 puff Q4H RESP THERAPY INH Last administered on 12/02/18at 07:40; Admin Dose 4 PUFF; Start 11/26/18 at 01:00 Albuterol (Ventolin Hfa) 4 puff Q2H RESP THERAPY PRN INH SHORTNESS OF BREATH Last administered on 11/28/18at 01:53; Admin Dose 4 PUFF; Start 11/26/18 at 01:00 Methylprednisolone Sodium Succinate (Solu-Medrol) 60 mg Q6 IV Last administered on 12/02/18at 06:59; Admin Dose 60 MG; Start 11/26/18 at 06:00 Acetaminophen (Tylenol Liquid) 650 mg Q6H PRN PO PAIN LEVEL 1-3 OR FEVER; Start 11/26/18 at 01:00 Morphine Sulfate (morphine) 2 mg Q4H PRN IV PAIN LEVEL 7-10; Start 11/26/18 at 01:00 Lorazepam (Ativan) 1 mg Q2H PRN IV ANXIETY; Start 11/26/18 at 01:00 Enoxaparin Sodium (Lovenox) 40 mg DAILY SC Last administered on 12/02/18at 08:43; Admin Dose 40 MG; Start 11/26/18 at 09:00 Vancomycin HCl (Vanco Iv Per Pharmacy) VANCOMYCIN PER PHARMACY PER PROTOCOL XX ; Start 11/26/18 at 03:00 Piperacillin Sod/ Tazobactam Sod 100 ml @ 200 mls/hr Q8 IVPB Last administered on 12/02/18at 06:59; Admin Dose 200 MLS/HR; Start 11/26/18 at 06:00 Propofol 100 ml @ 1.32 mls/hr Q12H IV Last administered on 12/02/18 03:07; Admin Dose 13.2 MLS/HR; Start 11/26/18 at 03:00 Norepinephrine 250 ml @ 1.875 mls/ hr TITRATE IV Last administered on 11/26/18at 10:46; Admin Dose 37.5 MLS/HR; Start 11/26/18 at 09:00 Insulin Aspart (Novolog Insulin Pen) NOVOLOG *MILD* ALGORI... Q4 SC Last administered on 12/02/18 09:30; Admin Dose 1 UNIT; Start 11/26/18 at 13:00 Phenylephrine HCl 40 mg/Dextrose 250 ml @ 37.5 mls/hr TITRATE IV Last administered on 11/30/18 02:35; Admin Dose 3 MLS/HR; Start 11/26/18 at 11:00 Fentanyl 100 ml @ 2.5 mls/hr TITRATE IV Last administered on 12/01/18at 21:03; Admin Dose 5 MLS/HR; Start 11/26/18 at 13:00 IV Flush (NS 10 ml) 10 ml PRN PRN IV IV PROTOCOL; Start 11/26/18 at 15:00 Lansoprazole (Prevacid) 30 mg DAILY@06 GTB Last administered on 12/02/18 06:59; Admin Dose 30 MG; Start 11/28/18 at 06:00 Fluconazole (Diflucan) 100 mg DAILY PO Last administered on 12/02/18 08:45; Admin Dose 100 MG; Start 11/27/18 at 15:00 Vancomycin/Sodium Chloride 250 ml @ 125 mls/hr Q12H IVPB Last administered on 12/02/18 04:57; Admin Dose 125 MLS/HR; Start 11/28/18 at 04:00 Sodium Phosphate (Neutra-Phos) 250 mg BID GTB Last administered on 12/02/18 08:45; Admin Dose 250 MG; Start 11/28/18 at 09:00 Midodrine (Proamatine) 5 mg TID@,,17 GTB Last administered on 12/02/18 08:45; Admin Dose 5 MG; Start 11/29/18 at 09:00 Alendronate Sodium (Fosamax) 70 mg Mo@AC BREAKFAST PO ; Start 12/02/18 at 07:00 Assessment/Plan Hospital Course (Demo Recall) IMPRESSION: 1. [id number] hypercapnic respiratory failure. 2. Likely healthcare-associated pneumonia and loculated effusion. 3. History of mitral valve replacement. 4. Status post septic shock likely secondary to above. Possible component of adrenal insufficiency PLAN: 1. Continue vasopressors. Titrate to keep map greater than 65. 2. Decrease O2 as tolerated. 3. Attempt CPAP weaning trial again today. 4. Antibiotics. 5. Tube feeding as tolerated. 6. Renal insufficiency with cortisol 5.3. Will add hydrocortisone. Critical care time 40 minutes. Discussed with family at bedside. There is a chance patient may not come off mechanical ventilation. We will discuss this with family. JESS SAUCEDO MD, [facility] Dec 02, 2018 10:02
--- NOTE | 2018-12-02 13:50 | CONS ---
Assessment/Plan Assessment/Plan Hospital Course (Demo Recall) Patient tolerated weaning this morning she is alert follows commands looks comfortable on vent family at bedside no fevers overnight WBC 3.8 platelets 128 neutrophils 98 BUN 21 creatinine 0.31 Chest x-ray this morning revealed bibasilar infiltrates improving on the left Microbiology: Urine cx + Nicole albicans, sputum culture grew Nicole albicans/E coli Antimicrobials: Vancomycin, fluconazole, Zosyn Indwelling: Endotracheal tube, NG tube, Das, right upper extremity PICC line Physical examination: This is a chronically ill-appearing wasted elderly woman who is intubated sedated in no distress. Head atraumatic normocephalic neck is supple chest rise symmetrical breath sounds diminished bases heart: S1-S2 abdomen soft bowel sounds present extremities without cyanosis Assessment: 1. Severe sepsis s/p shock 2. Acute on chronic hypoxemic respiratory failure 3. Bilateral pneumonia 4. Nicole albicans UTI 5. Coronary artery disease with a history of mitral valve replacement Plan: Improving, change antibiotics to cefepime, continue fluconazole, monitor platelet count, vent support per pulmonary Discussed with family at bedside Consultation Date/Type/Reason Admit Date/Time Nov 25, 2018 at 23:59 Initial Consult Date 11/26/18 Type of Consult id Requesting Provider: SHAUN CHRISTENSEN DO Date/Time of Note DATE: 12/02/18 TIME: 13:49 Exam/Review of Systems Exam Vitals Vital Signs Date Temp Pulse Resp B/P (MAP) Pulse Ox O2 O2 Flow FiO2 Time Delivery Rate 12/02/18 95 37 108/63 91 Mechanical 11:00 (78) Ventilator 12/02/18 40 08:00 12/02/18 97.8 08:00 Intake and Output 12/01/18 12/01/18 12/02/18 1515:00 23:00 07:00 IntakeIntake Total 1017.69 ml 833.88 ml 963 ml OutputOutput Total 275 ml 300 ml 240 ml BalanceBalance 742.69 ml 533.88 ml 723 ml Results Result Diagram: 12/02/18 0504 12/02/18 0504 Results 24hrs Laboratory Tests Test 12/01/18 15:14 12/01/18 17:07 12/01/18 20:38 12/02/18 05:04 Vancomycin Level 15.0 Trough Bedside Glucose 183 143 White Blood Count 3.8 #L Red Blood Count 2.43 L Hemoglobin 7.0 L Hematocrit 21.7 L Mean Corpuscular 89.3 Volume Mean Corpuscular 28.8 L Hemoglobin Mean Corpuscular 32.3 Hemoglobin Concen t Red Cell 17.3 H Distribution Width Platelet Count 128 L Mean Platelet 11.1 H Volume Immature 1.600 H Granulocytes % Neutrophils % Segmented 98 H Neutrophils % (Manual) Lymphocytes % 2 L (Manual) Eosinophils % Nucleated Red 0.0 Blood Cells % Immature 0.060 H Granulocytes # Neutrophils # Lymphocytes 0.0 L (Manual) Eosinophils # Platelet Estimate DECREASED Polychromasia 1+ Poikilocytosis 1+ Sodium Level 137 Potassium Level 3.7 Chloride Level 106 Carbon Dioxide 28 Level Anion Gap 3 L Blood Urea 21 H Nitrogen Creatinine 0.31 L Est Glomerular Filtrat Rate mL/min Glucose Level 152 Calcium Level 6.0 L Phosphorus Level 2.2 L Magnesium Level 1.9 Random Cortisol 5.3 Test 12/02/18 06:51 12/02/18 09:18 12/02/18 12:30 12/02/18 13:07 Bedside Glucose 191 175 182 Blood Gas Blood arterial Specimen Source Arterial Blood 12/02/2018 12:55: Date Drawn 00 PM Arterial Blood pH 7.394 (Temp corrected) Arterial Blood 56.6 H pCO2 (Temp correct) Arterial Blood 68.9 L pO2 (Temp corrected) Arterial Blood 33.8 H HCO3 Arterial Blood 7.5 H Base Excess Arterial Blood 90.9 L Oxygen Saturation Jordi Test ACCEPTAB Arterial Blood Right Radial Gas Puncture Site Arterial 0.3 Blood Carboxyhemo globin Arterial Blood 0.4 Methemoglobin Blood Gas A-a O2 78.5 H Differential Oxyhemoglobin 90.3 L Percent Blood Gas 37.0 Temperature Blood Gas Actual 30 Respiration Rate Blood Gas VENT - CPAP Modality FiO2 30.0 Blood Gas Low 5.0 PEEP Setting Blood Gas 10 Pressure Support Blood Gas Notified Whom Blood Gas 12/02/2018 1:01:4 Notified Time 6 PM Medications Medication Current Medications Ondansetron HCl (Zofran Inj) 4 mg Q6H PRN IV NAUSEA AND/OR VOMITING; Start 11/11 01/29 at 01:00 Albuterol (Ventolin Hfa) 4 puff Q4H RESP THERAPY INH Last administered on 12/02/18at 13:34; Admin Dose 4 PUFF; Start 11/26/18 at 01:00 Albuterol (Ventolin Hfa) 4 puff Q2H RESP THERAPY PRN INH SHORTNESS OF BREATH Last administered on 11/28/18 01:53; Admin Dose 4 PUFF; Start 11/26/18 at 01:00 Methylprednisolone Sodium Succinate (Solu-Medrol) 60 mg Q6 IV Last administered on 12/02/18 11:55; Admin Dose 60 MG; Start 11/26/18 at 06:00 Acetaminophen (Tylenol Liquid) 650 mg Q6H PRN PO PAIN LEVEL 1-3 OR FEVER; Start 11/26/18 at 01:00 Morphine Sulfate (morphine) 2 mg Q4H PRN IV PAIN LEVEL 7-10; Start 11/26/18 at 01:00 Lorazepam (Ativan) 1 mg Q2H PRN IV ANXIETY; Start 11/26/18 at 01:00 Enoxaparin Sodium (Lovenox) 40 mg DAILY SC Last administered on 12/02/18 08:43; Admin Dose 40 MG; Start 11/26/18 at 09:00 Vancomycin HCl (Vanco Iv Per Pharmacy) VANCOMYCIN PER PHARMACY PER PROTOCOL XX ; Start 11/26/18 at 03:00 Piperacillin Sod/ Tazobactam Sod 100 ml @ 200 mls/hr Q8 IVPB Last administered on 12/02/18 06:59; Admin Dose 200 MLS/HR; Start 11/26/18 at 06:00 Propofol 100 ml @ 1.32 mls/hr Q12H IV Last administered on 12/02/18 03:07; Admin Dose 13.2 MLS/HR; Start 11/26/18 at 03:00 Norepinephrine 250 ml @ 1.875 mls/ hr TITRATE IV Last administered on 11/26/18 10:46; Admin Dose 37.5 MLS/HR; Start 11/26/18 at 09:00 Insulin Aspart (Novolog Insulin Pen) NOVOLOG *MILD* ALGORI... Q4 SC Last administered on 12/02/18 13:11; Admin Dose 2 UNIT; Start 11/26/18 at 13:00 Phenylephrine HCl 40 mg/Dextrose 250 ml @ 37.5 mls/hr TITRATE IV Last administered on 11/30/18 02:35; Admin Dose 3 MLS/HR; Start 11/26/18 at 11:00 Fentanyl 100 ml @ 2.5 mls/hr TITRATE IV Last administered on 12/01/18at 21:03; Admin Dose 5 MLS/HR; Start 11/26/18 at 13:00 IV Flush (NS 10 ml) 10 ml PRN PRN IV IV PROTOCOL; Start 11/26/18 at 15:00 Lansoprazole (Prevacid) 30 mg DAILY@06 GTB Last administered on 12/02/18at 06:59; Admin Dose 30 MG; Start 11/28/18 at 06:00 Fluconazole (Diflucan) 100 mg DAILY PO Last administered on 12/02/18 08:45; Admin Dose 100 MG; Start 11/27/18 at 15:00 Vancomycin/Sodium Chloride 250 ml @ 125 mls/hr Q12H IVPB Last administered on 12/02/18at 04:57; Admin Dose 125 MLS/HR; Start 11/28/18 at 04:00 Sodium Phosphate (Neutra-Phos) 250 mg BID GTB Last administered on 12/02/18at 08:45; Admin Dose 250 MG; Start 11/28/18 at 09:00 Midodrine (Proamatine) 5 mg TID@,,17 GTB Last administered on 12/02/18at 13:06; Admin Dose 5 MG; Start 11/29/18 at 09:00 Alendronate Sodium (Fosamax) 70 mg Mo@AC BREAKFAST PO ; Start 12/02/18 at 07:00 JODY BOYD NP Dec 02, 2018 13:50
--- NOTE | 2018-12-02 14:46 | CONS ---
Consult Date/Type/Reason Admit Date/Time Nov 25, 2018 at 23:59 Initial Consult Date 11/26/18 Type of Consultation: cv Requesting Provider: SHAUN CHRISTENSEN DO Date/Time of Note DATE: 12/02/18 TIME: 14:42 Subjective Interventional cardiology follow-up progress note Subjective: Case discussed with staff and telemetry was reviewed. Patient remains in sinus rhythm with ventricular pacing. HR is STABLE now d/w son Patient nonverbal status post intubation on vent She is lesss hypotensive and is off Maikol-Synephrine drip. She is still on the vent ; Discussed with patient's son in detail Objective: General: Elderly female cachectic looking appears to be older than stated age status post intubation on the vent HEENT: NC/AT. pupils are equal. round. NECK: NO JVD. no stridor. CV: RRR. systolic murmur; no gallop or rubs. PULM: no wheezing + rhonchi more on the right GI: SOFT, NT, ND, no rebound or guarding Extremity: trace B/L LE edema. no clubbing. neuro: awake and follows command Psych: calm rectal: deferred : normal Chest x-ray shows ET and NG tubes in satisfactory position. Increase moderate large right pleural effusion, right middle lobe and basilar consolidation or atelectasis. Echocardiogram was personally reviewed which showed normal LV size ejection fraction of about 45-50% EKG was personally reviewed which shows ventricular paced rhythm CT Chest 11/27: 1. Findings compatible with bilateral bronchiolitis and bronchopneumonia, greater on the right, significantly increased when compared to the prior CT. Mild bilateral pleural effusions, grossly stable. 2. Stable mild cardiomegaly. Coronary arterial and aortic atherosclerotic calcifications. 3. Lines and tubes in place, as above. 4. No evidence of mass or lymphadenopath Objective Vitals Vital Signs Date Temp Pulse Resp B/P (MAP) Pulse Ox O2 O2 Flow FiO2 Time Delivery Rate 12/02/18 95 37 108/63 91 Mechanical 11:00 (78) Ventilator 12/02/18 40 08:00 12/02/18 97.8 08:00 Intake and Output 12/01/18 12/01/18 12/02/18 1414:59 22:59 06:59 IntakeIntake Total 903.73 ml 898.84 ml 1042 ml OutputOutput Total 255 ml 320 ml 270 ml BalanceBalance 648.73 ml 578.84 ml 772 ml Results/Medications Result Diagram: 12/02/18 0504 12/02/18 0504 Results 24 hrs Laboratory Tests Test 12/01/18 15:14 12/01/18 17:07 12/01/18 20:38 12/02/18 05:04 Vancomycin Level 15.0 Trough Bedside Glucose 183 143 White Blood Count 3.8 #L Red Blood Count 2.43 L Hemoglobin 7.0 L Hematocrit 21.7 L Mean Corpuscular 89.3 Volume Mean Corpuscular 28.8 L Hemoglobin Mean Corpuscular 32.3 Hemoglobin Concen t Red Cell 17.3 H Distribution Width Platelet Count 128 L Mean Platelet 11.1 H Volume Immature 1.600 H Granulocytes % Neutrophils % Segmented 98 H Neutrophils % (Manual) Lymphocytes % 2 L (Manual) Eosinophils % Nucleated Red 0.0 Blood Cells % Immature 0.060 H Granulocytes # Neutrophils # Lymphocytes 0.0 L (Manual) Eosinophils # Platelet Estimate DECREASED Polychromasia 1+ Poikilocytosis 1+ Sodium Level 137 Potassium Level 3.7 Chloride Level 106 Carbon Dioxide 28 Level Anion Gap 3 L Blood Urea 21 H Nitrogen Creatinine 0.31 L Est Glomerular Filtrat Rate mL/min Glucose Level 152 Calcium Level 6.0 L Phosphorus Level 2.2 L Magnesium Level 1.9 Random Cortisol 5.3 Test 12/02/18 06:51 12/02/18 09:18 12/02/18 12:30 12/02/18 13:07 Bedside Glucose 191 175 182 Blood Gas Blood arterial Specimen Source Arterial Blood 12/02/2018 12:55: Date Drawn 00 PM Arterial Blood pH 7.394 (Temp corrected) Arterial Blood 56.6 H pCO2 (Temp correct) Arterial Blood 68.9 L pO2 (Temp corrected) Arterial Blood 33.8 H HCO3 Arterial Blood 7.5 H Base Excess Arterial Blood 90.9 L Oxygen Saturation Jordi Test ACCEPTAB Arterial Blood Right Radial Gas Puncture Site Arterial 0.3 Blood Carboxyhemo globin Arterial Blood 0.4 Methemoglobin Blood Gas A-a O2 78.5 H Differential Oxyhemoglobin 90.3 L Percent Blood Gas 37.0 Temperature Blood Gas Actual 30 Respiration Rate Blood Gas VENT - CPAP Modality FiO2 30.0 Blood Gas Low 5.0 PEEP Setting Blood Gas 10 Pressure Support Blood Gas Notified Whom Blood Gas 12/02/2018 1:01:4 Notified Time 6 PM Home Meds Reported Medications Acetaminophen* (Tylenol*) 325 Mg Tablet, 650 MG PO Q6H PRN for PAIN AND OR ELEVATED TEMP, TAB 11/30/18 Magnesium Oxide* (Mag-Oxide*) 400 Mg Tablet, 400 MG PO BID, TAB 11/30/18 Levothyroxine Sodium* (Synthroid*) 50 Mcg Tablet, 50 MCG PO BEFORE BREAKFAST, #30 TAB 11/30/18 Potassium Chloride* (Potassium Chloride*) 8 Meq Capsule.er, 10 MEQ PO BID, CAP 11/30/18 Furosemide* (Furosemide*) 40 Mg Tablet, 40 MG PO DAILY, TAB 11/30/18 Cyanocobalamin (B12 Health Booster) 1,000 Mcg/15 Ml Oral.susp, 5000 MCG PO DAILY 11/30/18 Atorvastatin Calcium (Atorvastatin Calcium) 10 Mg Tablet, 10 MG PO QHS, #30 TAB 11/30/18 Aspirin* (Devon Aspirin* Chew) 81 Mg Tab.chew, 81 MG PO BID, TAB.CHEW 11/30/18 Acetazolamide* (Acetazolamide*) 250 Mg Tablet, 250 MG PO DAILY, #60 TAB 11/30/18 Alendronate Sodium* (Fosamax*) 70 Mg Tablet, 70 MG PO Q7D, #4 TAB 11/30/18 Medications Current Medications Ondansetron HCl (Zofran Inj) 4 mg Q6H PRN IV NAUSEA AND/OR VOMITING; Start 11/26/18 at 01:00 Albuterol (Ventolin Hfa) 4 puff Q4H RESP THERAPY INH Last administered on 12/02/18at 13:34; Admin Dose 4 PUFF; Start 11/26/18 at 01:00 Albuterol (Ventolin Hfa) 4 puff Q2H RESP THERAPY PRN INH SHORTNESS OF BREATH Last administered on 11/28/18at 01:53; Admin Dose 4 PUFF; Start 11/26/18 at 01:00 Methylprednisolone Sodium Succinate (Solu-Medrol) 60 mg Q6 IV Last administered on 12/02/18at 11:55; Admin Dose 60 MG; Start 11/26/18 at 06:00 Acetaminophen (Tylenol Liquid) 650 mg Q6H PRN PO PAIN LEVEL 1-3 OR FEVER; Start 11/26/18 at 01:00 Morphine Sulfate (morphine) 2 mg Q4H PRN IV PAIN LEVEL 7-10; Start 11/26/18 at 01:00 Lorazepam (Ativan) 1 mg Q2H PRN IV ANXIETY; Start 11/26/18 at 01:00 Enoxaparin Sodium (Lovenox) 40 mg DAILY SC Last administered on 12/02/18 08:43; Admin Dose 40 MG; Start 11/26/18 at 09:00 Propofol 100 ml @ 1.32 mls/hr Q12H IV Last administered on 12/02/18 03:07; Admin Dose 13.2 MLS/HR; Start 11/26/18 at 03:00 Norepinephrine 250 ml @ 1.875 mls/ hr TITRATE IV Last administered on 11/26/18 10:46; Admin Dose 37.5 MLS/HR; Start 11/26/18 at 09:00 Insulin Aspart (Novolog Insulin Pen) NOVOLOG *MILD* ALGORI... Q4 SC Last administered on 12/02/18 13:11; Admin Dose 2 UNIT; Start 11/26/18 at 13:00 Phenylephrine HCl 40 mg/Dextrose 250 ml @ 37.5 mls/hr TITRATE IV Last admi nistered on 11/30/18 02:35; Admin Dose 3 MLS/HR; Start 11/26/18 at 11:00 Fentanyl 100 ml @ 2.5 mls/hr TITRATE IV Last administered on 12/01/18 21:03; Admin Dose 5 MLS/HR; Start 11/26/18 at 13:00 IV Flush (NS 10 ml) 10 ml PRN PRN IV IV PROTOCOL; Start 11/26/18 at 15:00 Lansoprazole (Prevacid) 30 mg DAILY@06 GTB Last administered on 12/02/18 06:59; Admin Dose 30 MG; Start 11/28/18 at 06:00 Fluconazole (Diflucan) 100 mg DAILY PO Last administered on 12/02/18 08:45; Admin Dose 100 MG; Start 11/27/18 at 15:00 Sodium Phosphate (Neutra-Phos) 250 mg BID GTB Last administered on 12/02/18 08:45; Admin Dose 250 MG; Start 11/28/18 at 09:00 Midodrine (Proamatine) 5 mg TID@09,13,17 GTB Last administered on 12/02/18at 13:06; Admin Dose 5 MG; Start 11/29/18 at 09:00 Alendronate Sodium (Fosamax) 70 mg Mo@AC BREAKFAST PO ; Start 12/02/18 at 07:00 Cefepime HCl 50 ml @ 100 mls/hr Q12 IVPB ; Start 12/02/18 at 21:00 Assessment/Plan Hospital Course (Demo Recall) Acute on chronic hypoxemic/hypercapnic respiratory failure status post intubation currently on the ventilator Shock: Appears to be septic Pneumonia Pleural effusion History of mitral valve replacement currently functioning normally History of most likely heart block status post permanent pacemaker ([place]) Encephalopathy Cachexia and malnutrition History of rheumatoid arthritis History of ovarian cancer stage IV Thyroid disorder Acute renal failure Diabetes anemia Recommendations: Vent support to be continued to be managed as per pulmonary. Antibiotic management as per internal medicine pulmonary and infectious disease consultants off pressors now REPLACE Lytes prn Diabetic management as per internal medicine GI and DVT prophylaxis Continue with ICU care NAYLA SAUL MD [facility] NAYLA SAUL MD Dec 02, 2018 14:46
[2018-12-02] MEDS: CEFEPIME 1GM/50 ML (PMX) 50 ML IVPB SCH (21:48)
[2018-12-03] VITALS (35 sets, daily range): BP systolic 80–121; BP diastolic 52–80; PULSE 60–103; RESP 14–35
[2018-12-03] MEDS: FENTAnyl (DRIP) 1000 mcg/100mL 100 ML IV SCH ×2 (00:02→21:27)
[2018-12-03] MEDS: INSULIN ASPART [NOVOLOG] 3 ML PEN SC SCH ×6 (00:06→21:28)
[2018-12-03] MEDS: ALBUTEROL HFA 8 GM INHALER INH SCH ×6 (01:10→21:22)
[2018-12-03] MEDS: METHYLPREDNISOLONE 125 MG INJ IV SCH ×3 (06:11→18:24)
[2018-12-03] MEDS: LANSOPRAZOLE 30 MG CAP GTB SCH (06:12)
[2018-12-03] MEDS: PROPOFOL 100 ML IV SCH (06:25)
--- NOTE | 2018-12-03 08:05 | PN ---
DATE: 12/03/2018 SUBJECTIVE: The patient remains on full ventilatory support. Urinary output has been adequate. No other acute events noted. No hemoptysis, hematemesis or hematochezia. OBJECTIVE: VITAL SIGNS: Blood pressure is 121/65, respirations 14, pulse 60, temperature 98.2. HEENT: Head is normocephalic. NECK: Supple. HEART: Regular rate. LUNGS: Show diminished breath sounds at the base. ABDOMEN: Soft, nontender to palpation without rebound or guarding. EXTREMITIES: Negative for clubbing, cyanosis. Positive edema. DERMATOLOGIC: No rashes. MUSCULOSKELETAL: No joint effusion. NEUROLOGIC: No change in exam. MEDICATIONS: The patient's medications have been reviewed. LABORATORY DATA: From 12/03/2018 was reviewed. ABG was reviewed. IMAGING STUDY: Chest x-ray was reviewed. MICROBIOLOGY: Cultures have been reviewed. ASSESSMENT AND PLAN: 1. Sepsis, status post shock. Etiology is secondary to pneumonia, urinary tract infection. The pat ient is hemodynamically more stable. Off pressor support. Continue broad spectrum antibiotics, foll ow with infectious disease. 2. Ventilator-dependent respiratory failure. Vent settings and ABG was reviewed. Continue to monit or. Continue weaning per pulmonary. 3. Volume overload. Continue diuretic therapy. We will start the patient on Lasix 40 mg IV twice d aily. 4. Anemia. Hemoglobin levels have improved. Continue to monitor. No evidence of bleeding. 5. Mineral bone disorder. The patient is hypocalcemic and hypophosphatemic. Continue to replete wi th vitamin D analogs. Continue sodium phosphate. 6. Non-ST elevation myocardial infarction type 2. Continue medical management. Follow up with Card iology. 7. Nonoliguric acute kidney injury. Renal function is improved. Continue to monitor on diuretic th erapy. 8. History of coronary artery disease. Continue medical management. 9. History of arrhythmia, status post pacemaker. 10. Diabetes. Continue current insulin regimen. 11. History of ovarian cancer stage IV, status post radiation chemotherapy. 12. History of hypothyroidism. 13. History of arthritis. 14. Gastrointestinal and deep vein thrombosis prophylaxis. 15. Pancytopenia, improved. Continue to observe. Please note I spent over 30 minutes of critical care time with this patient. Dictated By: SHAUN MCCARTHY/SYBIL Conf#: [id number] [facility]#: [id number] CC: STEVIE REN MD; JESS SAUCEDO MD;*[facility]*
[2018-12-03] MEDS: CEFEPIME 1GM/50 ML (PMX) 50 ML IVPB SCH ×2 (08:51→21:18)
[2018-12-03] MEDS: CALCITRIOL 0.25 MCG CAP PO SCH (08:52)
[2018-12-03] MEDS: FLUCONAZOLE 100 MG TAB PO SCH (08:52)
[2018-12-03] MEDS: NEUTRA-PHOS 250 MG PACKET GTB SCH ×2 (08:52→21:19)
[2018-12-03] MEDS: ENOXAPARIN 40 MG/0.4 ML SYG SC SCH (08:57)
[2018-12-03] MEDS: FUROSEMIDE 20 MG INJ IV SCH ×2 (09:06→18:24)
[2018-12-03] MEDS: BALSAM PERU/CASTOR OIL 60 GM TUBE TOP SCH ×2 (09:07→21:19)
[2018-12-03] MEDS: MIDODRINE 5 MG TAB GTB SCH ×3 (09:09→17:23)
--- NOTE | 2018-12-03 11:51 | CONS ---
Consult Date/Type/Reason Admit Date/Time Nov 25, 2018 at 23:59 Initial Consult Date 11/26/18 Type of Consult Pulmonary Requesting Provider: SHAUN CHRISTENSEN DO Date/Time of Note DATE: 12/03/18 TIME: 11:48 Subjective Stable on MV, tolerated weaning trial yesterday. Objective Vital Signs Date Temp Pulse Resp B/P (MAP) Pulse Ox O2 O2 Flow FiO2 Time Delivery Rate 12/03/18 95.8 83 35 104/63 92 Mechanical 10:00 (77) Ventilator 12/03/18 30 08:00 Intake and Output 12/02/18 12/02/18 12/03/18 1515:00 23:00 07:00 IntakeIntake Total 350 ml 661.48 ml 662.9 ml OutputOutput Total 285 ml 520 ml 480 ml BalanceBalance 65 ml 141.48 ml 182.9 ml Exam PHYSICAL EXAMINATION: GENERAL: Thin lady, orally intubated on mechanical ventilation, appears comfortable at rest. VITAL SIGNS: NECK: Supple. No JVD or lymphadenopathy. CARDIAC: S1, S2. No added sounds or murmurs. CHEST: Diminished air entry bilaterally. ABDOMEN: Soft, nontender. No guarding or rebound. EXTREMITIES: No cyanosis, clubbing, or edema. NEUROLOGIC: Generalized weakness. Vent Setting Ventilator Support Mode: AC Fraction of Inspired Oxygen pe: 30 Positive End Expiratory Pressu: 5.0 Results/Medications Result Diagram: 12/03/18 0420 12/03/18 0420 Results 24 hrs Laboratory Tests Test 12/02/18 12:30 12/02/18 13:07 12/02/18 17:24 12/02/18 21:30 Blood Gas Blood arterial Specimen Source Arterial Blood 12/02/2018 12:55: Date Drawn 00 PM Arterial Blood pH 7.394 (Temp corrected) Arterial Blood 56.6 H pCO2 (Temp correct) Arterial Blood 68.9 L pO2 (Temp corrected) Arterial Blood 33.8 H HCO3 Arterial Blood 7.5 H Base Excess Arterial Blood 90.9 L Oxygen Saturation Jordi Test ACCEPTAB Arterial Blood Right Radial Gas Puncture Site Arterial 0.3 Blood Carboxyhemo globin Arterial Blood 0.4 Methemoglobin Blood Gas A-a O2 78.5 H Differential Oxyhemoglobin 90.3 L Percent Blood Gas 37.0 Temperature Blood Gas Actual 30 Respiration Rate Blood Gas VENT - CPAP Modality FiO2 30.0 Blood Gas Low 5.0 PEEP Setting Blood Gas 10 Pressure Support Blood Gas Notified Whom Blood Gas 12/02/2018 1:01:4 Notified Time 6 PM Bedside Glucose 182 169 170 Test 12/02/18 23:59 12/03/18 04:20 12/03/18 06:14 12/03/18 08:56 Bedside Glucose 193 208 170 White Blood Count 5.1 # Red Blood Count 2.91 L Hemoglobin 8.6 #L Hematocrit 26.2 #L Mean Corpuscular 90.0 Volume Mean Corpuscular 29.6 Hemoglobin Mean Corpuscular 32.8 Hemoglobin Concen t Red Cell 17.1 H Distribution Width Platelet Count 162 # Mean Platelet 11.4 H Volume Immature 0.800 H Granulocytes % Neutrophils % 93.6 H Lymphocytes % 1.9 L Monocytes % 3.5 Eosinophils % 0.0 Basophils % 0.2 Nucleated Red 0.0 Blood Cells % Immature 0.040 H Granulocytes # Neutrophils # 4.8 Lymphocytes # 0.1 L Monocytes # 0.2 L Eosinophils # 0.0 Basophils # 0.0 Nucleated Red 0.0 Blood Cells # Sodium Level 136 Potassium Level 3.7 Chloride Level 101 Carbon Dioxide 33 H Level Anion Gap 2 L Blood Urea 25 H Nitrogen Creatinine 0.31 L Est Glomerular Filtrat Rate mL/min Glucose Level 184 Calcium Level 7.1 L Phosphorus Level 2.9 Magnesium Level 2.0 Iron Level 38 Total Iron 166 L Binding Capacity Percent Iron 23 Saturation Medications Current Medications Ondansetron HCl (Zofran Inj) 4 mg Q6H PRN IV NAUSEA AND/OR VOMITING; Start 11/26/18 at 01:00 Albuterol (Ventolin Hfa) 4 puff Q4H RESP THERAPY INH Last administered on 12/03/18at 09:37; Admin Dose 4 PUFF; Start 11/26/18 at 01:00 Albuterol (Ventolin Hfa) 4 puff Q2H RESP THERAPY PRN INH SHORTNESS OF BREATH Last administered on 11/28/18at 01:53; Admin Dose 4 PUFF; Start 11/26/18 at 01:00 Methylprednisolone Sodium Succinate (Solu-Medrol) 60 mg Q6 IV Last administered on 12/03/18at 06:11; Admin Dose 60 MG; Start 11/26/18 at 06:00 Acetaminophen (Tylenol Liquid) 650 mg Q6H PRN PO PAIN LEVEL 1-3 OR FEVER; Start 11/26/18 at 01:00 Morphine Sulfate (morphine) 2 mg Q4H PRN IV PAIN LEVEL 7-10; Start 11/26/18 at 01:00 Lorazepam (Ativan) 1 mg Q2H PRN IV ANXIETY; Start 11/26/18 at 01:00 Enoxaparin Sodium (Lovenox) 40 mg DAILY SC Last administered on 12/03/18 08:57; Admin Dose 40 MG; Start 11/26/18 at 09:00 Propofol 100 ml @ 1.32 mls/hr Q12H IV Last administered on 12/03/18 06:25; Admin Dose 7.92 MLS/HR; Start 11/26/18 at 03:00 Norepinephrine 250 ml @ 1.875 mls/ hr TITRATE IV Last administered on 11/26/18 10:46; Admin Dose 37.5 MLS/HR; Start 11/26/18 at 09:00 Insulin Aspart (Novolog Insulin Pen) NOVOLOG *MILD* ALGORI... Q4 SC Last administered on 12/03/18 09:01; Admin Dose 1 UNIT; Start 11/26/18 at 13:00 Phenylephrine HCl 40 mg/Dextrose 250 ml @ 37.5 mls/hr TITRATE IV Last administered on 11/30/18 02:35; Admin Dose 3 MLS/HR; Start 11/26/18 at 11:00 Fentanyl 100 ml @ 2.5 mls/hr TITRATE IV Last administered on 12/03/18 00:02; Admin Dose 2.5 MLS/HR; Start 11/26/18 at 13:00 IV Flush (NS 10 ml) 10 ml PRN PRN IV IV PROTOCOL; Start 11/26/18 at 15:00 Lansoprazole (Prevacid) 30 mg DAILY@06 GTB Last administered on 12/03/18 06:12; Admin Dose 30 MG; Start 11/28/18 at 06:00 Fluconazole (Diflucan) 100 mg DAILY PO Last administered on 12/03/18 08:52; Admin Dose 100 MG; Start 11/27/18 at 15:00 Sodium Phosphate (Neutra-Phos) 250 mg BID GTB Last administered on 12/03/18 08:52; Admin Dose 250 MG; Start 11/28/18 at 09:00 Midodrine (Proamatine) 5 mg TID@09,13,17 GTB Last administered on 12/03/18at 09:09; Admin Dose 5 MG; Start 11/29/18 at 09:00 Alendronate Sodium (Fosamax) 70 mg Mo@AC BREAKFAST PO ; Start 12/02/18 at 07:00 Cefepime HCl 50 ml @ 100 mls/hr Q12 IVPB Last administered on 12/03/18 08:51; Admin Dose 100 MLS/HR; Start 12/02/18 at 21:00 Furosemide (Lasix) 20 mg BID DIURETICS IV Last administered on 12/03/18 09:06; Admin Dose 20 MG; Start 12/03/18 at 08:00 Calcitriol (Rocaltrol) 0.25 mcg DAILY PO Last administered on 12/03/18 08:52; Admin Dose 0.25 MCG; Start 12/03/18 at 09:00 Assessment/Plan Hospital Course (Demo Recall) IMPRESSION: 1. [id number] hypercapnic respiratory failure. 2. Likely healthcare-associated pneumonia and loculated effusion. 3. History of mitral valve replacement. 4. Status post septic shock likely secondary to above. Possible component of adrenal insufficiency PLAN: 1. Continue vasopressors. Titrate to keep map greater than 65. 2. Decrease O2 as tolerated. 3. Attempt CPAP weaning trial again today. 4. Antibiotics. 5. Tube feeding as tolerated. 6. Adrenal insufficiency with cortisol 5.3. May need hydrocortisone if hypotensive. Critical care time 40 minutes. Discussed with family at bedside. JESS SAUCEDO MD, [facility] Dec 03, 2018 11:50
--- NOTE | 2018-12-03 14:24 | CONS ---
Assessment/Plan Assessment/Plan Hospital Course (Demo Recall) Patient is awake on CPAP looks comfortable, no fevers overnight. WBC 5.1 platelets 162 neutrophils 93.6 BUN 25 creatinine 0.31 Antimicrobials: Fluconazole, cefepime Microbiology: Urine cx + Nicole albicans, sputum culture grew Nicole albicans/E coli Indwelling: Endotracheal tube, NG tube, Das, right upper extremity PICC line Physical examination: This is a chronically ill-appearing wasted elderly woman who is intubated sedated in no distress. Head atraumatic normocephalic neck is supple chest rise symmetrical breath sounds diminished bases heart: S1-S2 abdomen soft bowel sounds present extremities without cyanosis Assessment: 1. Severe sepsis s/p shock 2. Acute on chronic hypoxemic respiratory failure 3. Bilateral pneumonia 4. Nicole albicans UTI 5. Coronary artery disease with a history of mitral valve replacement Plan: Remains stable, continue present care, antibiotics weaning trials per pulmonary Discussed with RN Consultation Date/Type/Reason Admit Date/Time Nov 25, 2018 at 23:59 Initial Consult Date 11/26/18 Type of Consult id Requesting Provider: SHAUN CHRISTENSEN DO Date/Time of Note DATE: 12/03/18 TIME: 14:23 Exam/Review of Systems Exam Vitals Vital Signs Date Temp Pulse Resp B/P (MAP) Pulse Ox O2 O2 Flow FiO2 Time Delivery Rate 12/03/18 91 12:00 12/03/18 95.8 35 104/63 92 Mechanical 10:00 (77) Ventilator 12/03/18 30 08:00 Intake and Output 12/02/18 12/02/18 12/03/18 1515:00 23:00 07:00 IntakeIntake Total 350 ml 661.48 ml 662.9 ml OutputOutput Total 285 ml 520 ml 480 ml BalanceBalance 65 ml 141.48 ml 182.9 ml Results Result Diagram: 12/03/18 0420 12/03/18 0420 Results 24hrs Laboratory Tests Test 12/02/18 17:24 12/02/18 21:30 12/02/18 23:59 12/03/18 04:20 Bedside Glucose 169 170 193 White Blood Count 5.1 # Red Blood Count 2.91 L Hemoglobin 8.6 #L Hematocrit 26.2 #L Mean Corpuscular 90.0 Volume Mean Corpuscular 29.6 Hemoglobin Mean Corpuscular 32.8 Hemoglobin Concen t Red Cell 17.1 H Distribution Width Platelet Count 162 # Mean Platelet 11.4 H Volume Immature 0.800 H Granulocytes % Neutrophils % 93.6 H Lymphocytes % 1.9 L Monocytes % 3.5 Eosinophils % 0.0 Basophils % 0.2 Nucleated Red 0.0 Blood Cells % Immature 0.040 H Granulocytes # Neutrophils # 4.8 Lymphocytes # 0.1 L Monocytes # 0.2 L Eosinophils # 0.0 Basophils # 0.0 Nucleated Red 0.0 Blood Cells # Sodium Level 136 Potassium Level 3.7 Chloride Level 101 Carbon Dioxide 33 H Level Anion Gap 2 L Blood Urea 25 H Nitrogen Creatinine 0.31 L Est Glomerular Filtrat Rate mL/min Glucose Level 184 Calcium Level 7.1 L Phosphorus Level 2.9 Magnesium Level 2.0 Iron Level 38 Total Iron 166 L Binding Capacity Percent Iron 23 Saturation Test 12/03/18 06:14 12/03/18 08:56 12/03/18 11:30 12/03/18 12:07 Bedside Glucose 208 170 177 Blood Gas Blood arterial Specimen Source Arterial Blood 12/03/2018 11:40: Date Drawn 14 AM Arterial Blood pH 7.303 L (Temp corrected) Arterial Blood 72.3 H pCO2 (Temp correct) Arterial Blood 80.5 pO2 (Temp corrected) Arterial Blood 35.0 H HCO3 Arterial Blood 6.8 H Base Excess Arterial Blood 92.3 L Oxygen Saturation Jordi Test ACCEPTAB Arterial Blood Right Radial Gas Puncture Site Arterial 0.6 Blood Carboxyhemo globin Arterial Blood 0.3 Methemoglobin Blood Gas A-a O2 85.0 H Differential Oxyhemoglobin 91.5 L Percent Blood Gas 37.0 Temperature Blood Gas VENT - CPAP Modality FiO2 35.0 Blood Gas Low 5.0 PEEP Setting Blood Gas 10 Pressure Support Blood Gas AT Notified Whom Blood Gas 12/03/2018 12:06: Notified Time 43 PM Medications Medication Current Medications Ondansetron HCl (Zofran Inj) 4 mg Q6H PRN IV NAUSEA AND/OR VOMITING; Start 11/26/18 at 01:00 Albuterol (Ventolin Hfa) 4 puff Q4H RESP THERAPY INH Last administered on 12/03/18at 13:37; Admin Dose 4 PUFF; Start 11/26/18 at 01:00 Albuterol (Ventolin Hfa) 4 puff Q2H RESP THERAPY PRN INH SHORTNESS OF BREATH Last administered on 11/28/18 01:53; Admin Dose 4 PUFF; Start 11/26/18 at 01:00 Methylprednisolone Sodium Succinate (Solu-Medrol) 60 mg Q6 IV Last administered on 12/03/18 12:06; Admin Dose 60 MG; Start 11/26/18 at 06:00 Acetaminophen (Tylenol Liquid) 650 mg Q6H PRN PO PAIN LEVEL 1-3 OR FEVER; Start 11/26/18 at 01:00 Morphine Sulfate (morphine) 2 mg Q4H PRN IV PAIN LEVEL 7-10; Start 11/26/18 at 01:00 Lorazepam (Ativan) 1 mg Q2H PRN IV ANXIETY; Start 11/26/18 at 01:00 Enoxaparin Sodium (Lovenox) 40 mg DAILY SC Last administered on 12/03/18 08:57; Admin Dose 40 MG; Start 11/26/18 at 09:00 Propofol 100 ml @ 1.32 mls/hr Q12H IV Last administered on 12/03/18 06:25; Admin Dose 7.92 MLS/HR; Start 11/26/18 at 03:00 Norepinephrine 250 ml @ 1.875 mls/ hr TITRATE IV Last administered on 11/26/18 10:46; Admin Dose 37.5 MLS/HR; Start 11/26/18 at 09:00 Insulin Aspart (Novolog Insulin Pen) NOVOLOG *MILD* ALGORI... Q4 SC Last administered on 12/03/18 12:10; Admin Dose 1 UNIT; Start 11/26/18 at 13:00 Phenylephrine HCl 40 mg/Dextrose 250 ml @ 37.5 mls/hr TITRATE IV Last adm inistered on 11/30/18 02:35; Admin Dose 3 MLS/HR; Start 11/26/18 at 11:00 Fentanyl 100 ml @ 2.5 mls/hr TITRATE IV Last administered on 12/03/18 00:02; Admin Dose 2.5 MLS/HR; Start 11/26/18 at 13:00 IV Flush (NS 10 ml) 10 ml PRN PRN IV IV PROTOCOL; Start 11/26/18 at 15:00 Lansoprazole (Prevacid) 30 mg DAILY@06 GTB Last administered on 12/03/18 06:12; Admin Dose 30 MG; Start 11/28/18 at 06:00 Fluconazole (Diflucan) 100 mg DAILY PO Last administered on 12/03/18 08:52; Admin Dose 100 MG; Start 11/27/18 at 15:00 Sodium Phosphate (Neutra-Phos) 250 mg BID GTB Last administered on 12/03/18 08:52; Admin Dose 250 MG; Start 11/28/18 at 09:00 Midodrine (Proamatine) 5 mg TID@,,17 GTB Last administered on 12/03/18 12:06; Admin Dose 5 MG; Start 11/29/18 at 09:00 Alendronate Sodium (Fosamax) 70 mg Mo@AC BREAKFAST PO ; Start 12/02/18 at 07:00 Cefepime HCl 50 ml @ 100 mls/hr Q12 IVPB Last administered on 12/03/18 08:51; Admin Dose 100 MLS/HR; Start 12/02/18 at 21:00 Furosemide (Lasix) 20 mg BID DIURETICS IV Last administered on 12/03/18 09:06; Admin Dose 20 MG; Start 12/03/18 at 08:00 Calcitriol (Rocaltrol) 0.25 mcg DAILY PO Last administered on 12/03/18 08:52; Admin Dose 0.25 MCG; Start 12/03/18 at 09:00 JODY BOYD NP Dec 03, 2018 14:24
--- NOTE | 2018-12-03 15:57 | CONS ---
Consult Date/Type/Reason Admit Date/Time Nov 25, 2018 at 23:59 Initial Consult Date 11/26/18 Type of Consultation: cv Requesting Provider: SHAUN CHRISTENSEN DO Date/Time of Note DATE: 12/03/18 TIME: 15:56 Subjective Interventional cardiology follow-up progress note Subjective: Case discussed with staff and telemetry was reviewed. Patient remains in sinus rhythm with ventricular pacing. HR is STABLE now d/w Dr Lo. pt failed CPAP trial. Patient nonverbal status post intubation on vent She is less hypotensive and is off Maikol-Synephrine drip. Objective: General: Elderly female cachectic looking appears to be older than stated age status post intubation on the vent HEENT: NC/AT. pupils are equal. round. NECK: NO JVD. no stridor. CV: RRR. systolic murmur; no gallop or rubs. PULM: no wheezing + rhonchi more on the right GI: SOFT, NT, ND, no rebound or guarding Extremity: trace B/L LE edema. no clubbing. neuro: awake and follows command Psych: calm rectal: deferred : normal Chest x-ray shows ET and NG tubes in satisfactory position. Increase moderate large right pleural effusion, right middle lobe and basilar consolidation or atelectasis. Echocardiogram was personally reviewed which showed normal LV size ejection fr action of about 45-50% EKG was personally reviewed which shows ventricular paced rhythm CT Chest 11/27: 1. Findings compatible with bilateral bronchiolitis and bronchopneumonia, greater on the right, significantly increased when compared to the prior CT. Mild bilateral pleural effusions, grossly stable. 2. Stable mild cardiomegaly. Coronary arterial and aortic atherosclerotic calcifications. 3. Lines and tubes in place, as above. 4. No evidence of mass or lymphadenopath Objective Vitals Vital Signs Date Temp Pulse Resp B/P (MAP) Pulse Ox O2 O2 Flow FiO2 Time Delivery Rate 12/03/18 30 15:25 12/03/18 93 18 120/80 94 Mechanical 14:00 (93) Ventilator 12/03/18 97.5 12:00 Intake and Output 12/02/18 12/02/18 12/03/18 1515:00 23:00 07:00 IntakeIntake Total 350 ml 661.48 ml 662.9 ml OutputOutput Total 285 ml 520 ml 480 ml BalanceBalance 65 ml 141.48 ml 182.9 ml Results/Medications Result Diagram: 12/03/18 0420 12/03/18 0420 Results 24 hrs Laboratory Tests Test 12/02/18 17:24 12/02/18 21:30 12/02/18 23:59 12/03/18 04:20 Bedside Glucose 169 170 193 White Blood 5.1 # Count Red Blood Count 2.91 L Hemoglobin 8.6 #L Hematocrit 26.2 #L Mean Corpuscular 90.0 Volume Mean Corpuscular 29.6 Hemoglobin Mean Corpuscular 32.8 Hemoglobin Tori nt Red Cell 17.1 H Distribution Width Platelet Count 162 # Mean Platelet 11.4 H Volume Immature 0.800 H Granulocytes % Neutrophils % 93.6 H Lymphocytes % 1.9 L Monocytes % 3.5 Eosinophils % 0.0 Basophils % 0.2 Nucleated Red 0.0 Blood Cells % Immature 0.040 H Granulocytes # Neutrophils # 4.8 Lymphocytes # 0.1 L Monocytes # 0.2 L Eosinophils # 0.0 Basophils # 0.0 Nucleated Red 0.0 Blood Cells # Sodium Level 136 Potassium Level 3.7 Chloride Level 101 Carbon Dioxide 33 H Level Anion Gap 2 L Blood Urea 25 H Nitrogen Creatinine 0.31 L Est Glomerular Filtrat Rate mL/min Glucose Level 184 Calcium Level 7.1 L Phosphorus Level 2.9 Magnesium Level 2.0 Iron Level 38 Total Iron 166 L Binding Capacity Percent Iron 23 Saturation Test 12/03/18 06:14 12/03/18 08:56 12/03/18 11:30 12/03/18 12:07 Bedside Glucose 208 170 177 Blood Gas Blood arterial Specimen Source Arterial Blood 12/03/2018 11:40 Date Drawn :14 AM Arterial Blood 7.303 L pH (Temp corrected) Arterial Blood 72.3 H pCO2 (Temp correct) Arterial Blood 80.5 pO2 (Temp corrected) Arterial Blood 35.0 H HCO3 Arterial Blood 6.8 H Base Excess Arterial Blood 92.3 L Oxygen Saturatio n Jordi Test ACCEPTAB Arterial Blood Right Radial Gas Puncture Site Arterial 0.6 Blood Carboxyhem oglobin Arterial Blood 0.3 Methemoglobin Blood Gas A-a O2 85.0 H Differential Oxyhemoglobin 91.5 L Percent Blood Gas 37.0 Temperature Blood Gas VENT - CPAP Modality FiO2 35.0 Blood Gas Low 5.0 PEEP Setting Blood Gas 10 Pressure Support Blood Gas AT Notified Whom Blood Gas 12/03/2018 12:06 Notified Time :43 PM Test 12/03/18 15:30 Blood Gas Blood arterial Specimen Source Arterial Blood 12/03/2018 3:06: Date Drawn 06 PM Arterial Blood 7.311 L pH (Temp corrected) Arterial Blood 72.3 H pCO2 (Temp correct) Arterial Blood 89.1 pO2 (Temp corrected) Arterial Blood 35.7 H HCO3 Arterial Blood 7.4 H Base Excess Arterial Blood 94.7 L Oxygen Saturatio n Jordi Test ACCEPTAB Arterial Blood Right Radial Gas Puncture Site Arterial 0.3 Blood Carboxyhem oglobin Arterial Blood 0.4 Methemoglobin Blood Gas A-a O2 76.4 H Differential Oxyhemoglobin 94.0 Percent Blood Gas 37.0 Temperature Blood Gas Actual 33 Respiration Rate Blood Gas VENT - CPAP Modality FiO2 35.0 Blood Gas Low 5.0 PEEP Setting Blood Gas 10 Pressure Support Blood Gas AT Notified Whom Blood Gas 12/03/2018 3:18: Notified Time 14 PM Home Meds Reported Medications Acetaminophen* (Tylenol*) 325 Mg Tablet, 650 MG PO Q6H PRN for PAIN AND OR ELEVATED TEMP, TAB 11/30/18 Magnesium Oxide* (Mag-Oxide*) 400 Mg Tablet, 400 MG PO BID, TAB 11/30/18 Levothyroxine Sodium* (Synthroid*) 50 Mcg Tablet, 50 MCG PO BEFORE BREAKFAST, #30 TAB 11/30/18 Potassium Chloride* (Potassium Chloride*) 8 Meq Capsule.er, 10 MEQ PO BID, CAP 11/30/18 Furosemide* (Furosemide*) 40 Mg Tablet, 40 MG PO DAILY, TAB 11/30/18 Cyanocobalamin (B12 Health Booster) 1,000 Mcg/15 Ml Oral.susp, 5000 MCG PO DAILY 11/30/18 Atorvastatin Calcium (Atorvastatin Calcium) 10 Mg Tablet, 10 MG PO QHS, #30 TAB 11/30/18 Aspirin* (Devon Aspirin* Chew) 81 Mg Tab.chew, 81 MG PO BID, TAB.CHEW 11/30/18 Acetazolamide* (Acetazolamide*) 250 Mg Tablet, 250 MG PO DAILY, #60 TAB 11/30/18 Alendronate Sodium* (Fosamax*) 70 Mg Tablet, 70 MG PO Q7D, #4 TAB 11/30/18 Medications Current Medications Ondansetron HCl (Zofran Inj) 4 mg Q6H PRN IV NAUSEA AND/OR VOMITING; Start 11/26/18 at 01:00 Albuterol (Ventolin Hfa) 4 puff Q4H RESP THERAPY INH Last administered on 12/03/18 13:37; Admin Dose 4 PUFF; Start 11/26/18 at 01:00 Albuterol (Ventolin Hfa) 4 puff Q2H RESP THERAPY PRN INH SHORTNESS OF BREATH Last administered on 11/28/18 01:53; Admin Dose 4 PUFF; Start 11/26/18 at 01:00 Methylprednisolone Sodium Succinate (Solu-Medrol) 60 mg Q6 IV Last administered on 12/03/18 12:06; Admin Dose 60 MG; Start 11/26/18 at 06:00 Acetaminophen (Tylenol Liquid) 650 mg Q6H PRN PO PAIN LEVEL 1-3 OR FEVER; Start 11/26/18 at 01:00 Morphine Sulfate (morphine) 2 mg Q4H PRN IV PAIN LEVEL 7-10; Start 11/26/18 at 01:00 Lorazepam (Ativan) 1 mg Q2H PRN IV ANXIETY; Start 11/26/18 at 01:00 Enoxaparin Sodium (Lovenox) 40 mg DAILY SC Last administered on 12/03/18 08:57; Admin Dose 40 MG; Start 11/26/18 at 09:00 Propofol 100 ml @ 1.32 mls/hr Q12H IV Last administered on 12/03/18 06:25; Admin Dose 7.92 MLS/HR; Start 11/26/18 at 03:00 Norepinephrine 250 ml @ 1.875 mls/ hr TITRATE IV Last administered on 11/26/18 10:46; Admin Dose 37.5 MLS/HR; Start 11/26/18 at 09:00 Insulin Aspart (Novolog Insulin Pen) NOVOLOG *MILD* ALGORI... Q4 SC Last administered on 12/03/18 12:10; Admin Dose 1 UNIT; Start 11/26/18 at 13:00 Phenylephrine HCl 40 mg/Dextrose 250 ml @ 37.5 mls/hr TITRATE IV Last administered on 11/30/18 02:35; Admin Dose 3 MLS/HR; Start 11/26/18 at 11:00 Fentanyl 100 ml @ 2.5 mls/hr TITRATE IV Last administered on 12/03/18 00:02; Admin Dose 2.5 MLS/HR; Start 11/26/18 at 13:00 IV Flush (NS 10 ml) 10 ml PRN PRN IV IV PROTOCOL; Start 11/26/18 at 15:00 Lansoprazole (Prevacid) 30 mg DAILY@06 GTB Last administered on 12/03/18 06:12; Admin Dose 30 MG; Start 11/28/18 at 06:00 Fluconazole (Diflucan) 100 mg DAILY PO Last administered on 12/03/18 08:52; Admin Dose 100 MG; Start 11/27/18 at 15:00 Sodium Phosphate (Neutra-Phos) 250 mg BID GTB Last administered on 12/03/18 08:52; Admin Dose 250 MG; Start 11/28/18 at 09:00 Midodrine (Proamatine) 5 mg TID@,,17 GTB Last administered on 12/03/18 12:06; Admin Dose 5 MG; Start 11/29/18 at 09:00 Alendronate Sodium (Fosamax) 70 mg Mo@AC BREAKFAST PO ; Start 12/02/18 at 07:00 Cefepime HCl 50 ml @ 100 mls/hr Q12 IVPB Last administered on 12/03/18 08:51; Admin Dose 100 MLS/HR; Start 12/02/18 at 21:00 Furosemide (Lasix) 20 mg BID DIURETICS IV Last administered on 12/03/18 09:06; Admin Dose 20 MG; Start 12/03/18 at 08:00 Calcitriol (Rocaltrol) 0.25 mcg DAILY PO Last administered on 12/03/18 08:52; Admin Dose 0.25 MCG; Start 12/03/18 at 09:00 Assessment/Plan Hospital Course (Demo Recall) Acute on chronic hypoxemic/hypercapnic respiratory failure status post intuba tion currently on the ventilator Shock: Appears to be septic Pneumonia Pleural effusion History of mitral valve replacement currently functioning normally History of most likely heart block status post permanent pacemaker ([employer]) Encephalopathy Cachexia and malnutrition History of rheumatoid arthritis History of ovarian cancer stage IV Thyroid disorder Acute renal failure Diabetes anemia Recommendations: Vent support to be continued to be managed as per pulmonary. weaning as fidel ated. Antibiotic management as per internal medicine pulmonary and infectious disease consultants off pressors now REPLACE Lytes prn Diabetic management as per internal medicine GI and DVT prophylaxis Continue with ICU care NAYLA SAUL MD [facility] NAYLA SAUL MD Dec 03, 2018 15:57
[2018-12-04] VITALS (36 sets, daily range): BP systolic 81–144; BP diastolic 23–126; PULSE 65–114; RESP 14–31
[2018-12-04] MEDS: INSULIN ASPART [NOVOLOG] 3 ML PEN SC SCH ×6 (00:21→20:40)
[2018-12-04] MEDS: METHYLPREDNISOLONE 125 MG INJ IV SCH ×5 (00:27→23:50)
[2018-12-04] MEDS: PROPOFOL 100 ML IV SCH ×3 (00:45→18:49)
[2018-12-04] MEDS: ALBUTEROL HFA 8 GM INHALER INH SCH ×6 (00:57→21:04)
[2018-12-04] MEDS: LANSOPRAZOLE 30 MG CAP GTB SCH (05:16)
[2018-12-04] MEDS: FUROSEMIDE 20 MG INJ IV SCH ×2 (05:22→17:39)
--- NOTE | 2018-12-04 07:22 | CONS ---
Consult Date/Type/Reason Admit Date/Time Nov 25, 2018 at 23:59 Initial Consult Date 11/26/18 Type of Consultation: cv Requesting Provider: SHAUN CHRISTENSEN DO Date/Time of Note DATE: 12/04/18 TIME: 07:21 Subjective Interventional cardiology follow-up progress note Subjective: Case discussed with staff and telemetry was reviewed. Patient remains in sinus rhythm with ventricular pacing. HR is STABLE now d/w physicians There is no report of any chest pain or pressure She is less hypotensive and is off Maikol-Synephrine drip. Objective: General: Elderly female cachectic looking appears to be older than stated age status post intubation on the vent HEENT: NC/AT. pupils are equal. round. NECK: NO JVD. no stridor. CV: RRR. systolic murmur; no gallop or rubs. PULM: no wheezing + rhonchi more on the right GI: SOFT, NT, ND, no rebound or guarding Extremity: trace B/L LE edema. no clubbing. neuro: awake and follows command Psych: calm rectal: deferred : normal Chest x-ray shows ET and NG tubes in satisfactory position. Increase moderate large right pleural effusion, right middle lobe and basilar consolidation or atelectasis. Echocardiogram was personally reviewed which showed normal LV size ejection fraction of about 45-50% EKG was personally reviewed which shows ventricular paced rhythm CT Chest 11/27: 1. Findings compatible with bilateral bronchiolitis and bronchopneumonia, greater on the right, significantly increased when compared to the prior CT. Mild bilateral pleural effusions, grossly stable. 2. Stable mild cardiomegaly. Coronary arterial and aortic atherosclerotic calcifications. 3. Lines and tubes in place, as above. 4. No evidence of mass or lymphadenopath Objective Objective Vitals Vital Signs Date Temp Pulse Resp B/P (MAP) Pulse Ox O2 O2 Flow FiO2 Time Delivery Rate 12/04/18 97.8 87 25 81/55 (64) 92 Mechanical 06:00 Ventilator 12/04/18 30 04:53 Intake and Output 12/03/18 12/03/18 12/04/18 1515:00 23:00 07:00 IntakeIntake Total 135.8 ml 657.00 ml 691.96 ml OutputOutput Total 775 ml 1125 ml 1000 ml BalanceBalance -639.2 ml -468.00 ml -308.04 ml Results/Medications Result Diagram: 12/04/18 0505 12/04/18 0505 Results 24 hrs Laboratory Tests Test 12/03/18 08:56 12/03/18 11:30 12/03/18 12:07 12/03/18 15:30 Bedside Glucose 170 177 Blood Gas Blood arterial Blood arterial Specimen Source Arterial Blood 12/03/2018 11:40 12/03/2018 3:06: Date Drawn :14 AM 06 PM Arterial Blood 7.303 L 7.311 L pH (Temp corrected) Arterial Blood 72.3 H 72.3 H pCO2 (Temp correct) Arterial Blood 80.5 89.1 pO2 (Temp corrected) Arterial Blood 35.0 H 35.7 H HCO3 Arterial Blood 6.8 H 7.4 H Base Excess Arterial Blood 92.3 L 94.7 L Oxygen Saturatio n Jordi Test ACCEPTAB ACCEPTAB Arterial Blood Right Radial Right Radial Gas Puncture Site Arterial 0.6 0.3 Blood Carboxyhem oglobin Arterial Blood 0.3 0.4 Methemoglobin Blood Gas A-a O2 85.0 H 76.4 H Differential Oxyhemoglobin 91.5 L 94.0 Percent Blood Gas 37.0 37.0 Temperature Blood Gas VENT - CPAP VENT - CPAP Modality FiO2 35.0 35.0 Blood Gas Low 5.0 5.0 PEEP Setting Blood Gas 10 10 Pressure Support Blood Gas AT AT Notified Whom Blood Gas 12/03/2018 12:06 12/03/2018 3:18: Notified Time :43 PM 14 PM Blood Gas Actual 33 Respiration Rate Test 12/03/18 17:25 12/03/18 21:14 12/04/18 00:17 12/04/18 05:05 Bedside Glucose 142 210 185 White Blood 7.3 # Count Red Blood Count 3.02 L Hemoglobin 8.6 L Hematocrit 27.3 L Mean Corpuscular 90.4 Volume Mean Corpuscular 28.5 L Hemoglobin Mean Corpuscular 31.5 L Hemoglobin Tori nt Red Cell 17.1 H Distribution Width Platelet Count 181 Mean Platelet 11.1 H Volume Immature 0.400 Granulocytes % Neutrophils % 95.9 H Lymphocytes % 1.6 L Monocytes % 2.0 Eosinophils % 0.0 Basophils % 0.1 Nucleated Red 0.0 Blood Cells % Immature 0.030 Granulocytes # Neutrophils # 7.0 Lymphocytes # 0.1 L Monocytes # 0.2 L Eosinophils # 0.0 Basophils # 0.0 Nucleated Red 0.0 Blood Cells # Sodium Level 138 Potassium Level 3.6 Chloride Level 100 Carbon Dioxide 36 H Level Anion Gap 2 L Blood Urea 29 H Nitrogen Creatinine 0.37 L Est Glomerular Filtrat Rate mL/min Glucose Level 213 Calcium Level 7.0 L Phosphorus Level 3.1 Magnesium Level 2.0 Test 12/04/18 05:09 Bedside Glucose 215 Home Meds Reported Medications Acetaminophen* (Tylenol*) 325 Mg Tablet, 650 MG PO Q6H PRN for PAIN AND OR ELEVATED TEMP, TAB 11/30/18 Magnesium Oxide* (Mag-Oxide*) 400 Mg Tablet, 400 MG PO BID, TAB 11/30/18 Levothyroxine Sodium* (Synthroid*) 50 Mcg Tablet, 50 MCG PO BEFORE BREAKFAST, #30 TAB 11/30/18 Potassium Chloride* (Potassium Chloride*) 8 Meq Capsule.er, 10 MEQ PO BID, CAP 11/30/18 Furosemide* (Furosemide*) 40 Mg Tablet, 40 MG PO DAILY, TAB 11/30/18 Cyanocobalamin (B12 Health Booster) 1,000 Mcg/15 Ml Oral.susp, 5000 MCG PO DAILY 11/30/18 Atorvastatin Calcium (Atorvastatin Calcium) 10 Mg Tablet, 10 MG PO QHS, #30 TAB 11/30/18 Aspirin* (Devon Aspirin* Chew) 81 Mg Tab.chew, 81 MG PO BID, TAB.CHEW 11/30/18 Acetazolamide* (Acetazolamide*) 250 Mg Tablet, 250 MG PO DAILY, #60 TAB 11/30/18 Alendronate Sodium* (Fosamax*) 70 Mg Tablet, 70 MG PO Q7D, #4 TAB 11/30/18 Medications Current Medications Ondansetron HCl (Zofran Inj) 4 mg Q6H PRN IV NAUSEA AND/OR VOMITING; Start 11/26/18 at 01:00 Albuterol (Ventolin Hfa) 4 puff Q4H RESP THERAPY INH Last administered on 12/04/18at 04:52; Admin Dose 4 PUFF; Start 11/26/18 at 01:00 Albuterol (Ventolin Hfa) 4 puff Q2H RESP THERAPY PRN INH SHORTNESS OF BREATH Last administered on 11/28/18at 01:53; Admin Dose 4 PUFF; Start 11/26/18 at 01:00 Methylprednisolone Sodium Succinate (Solu-Medrol) 60 mg Q6 IV Last administered on 12/04/18 05:16; Admin Dose 60 MG; Start 11/26/18 at 06:00 Acetaminophen (Tylenol Liquid) 650 mg Q6H PRN PO PAIN LEVEL 1-3 OR FEVER; Start 11/26/18 at 01:00 Morphine Sulfate (morphine) 2 mg Q4H PRN IV PAIN LEVEL 7-10; Start 11/26/18 at 01:00 Lorazepam (Ativan) 1 mg Q2H PRN IV ANXIETY; Start 11/26/18 at 01:00 Enoxaparin Sodium (Lovenox) 40 mg DAILY SC Last administered on 12/03/18 08:57; Admin Dose 40 MG; Start 11/26/18 at 09:00 Propofol 100 ml @ 1.32 mls/hr Q12H IV Last administered on 12/04/18 00:45; Admin Dose 5.28 MLS/HR; Start 11/26/18 at 03:00 Norepinephrine 250 ml @ 1.875 mls/ hr TITRATE IV Last administered on 11/26/18 10:46; Admin Dose 37.5 MLS/HR; Start 11/26/18 at 09:00 Insulin Aspart (Novolog Insulin Pen) NOVOLOG *MILD* ALGORI... Q4 SC Last administered on 12/04/18 05:18; Admin Dose 2 UNIT; Start 11/26/18 at 13:00 Phenylephrine HCl 40 mg/Dextrose 250 ml @ 37.5 mls/hr TITRATE IV Last admi nistered on 11/30/18at 02:35; Admin Dose 3 MLS/HR; Start 11/26/18 at 11:00 Fentanyl 100 ml @ 2.5 mls/hr TITRATE IV Last administered on 12/03/18 21:27; Admin Dose 5 MLS/HR; Start 11/26/18 at 13:00 IV Flush (NS 10 ml) 10 ml PRN PRN IV IV PROTOCOL; Start 11/26/18 at 15:00 Lansoprazole (Prevacid) 30 mg DAILY@06 GTB Last administered on 12/04/18 05:16; Admin Dose 30 MG; Start 11/28/18 at 06:00 Fluconazole (Diflucan) 100 mg DAILY PO Last administered on 12/03/18 08:52; Admin Dose 100 MG; Start 11/27/18 at 15:00 Sodium Phosphate (Neutra-Phos) 250 mg BID GTB Last administered on 12/03/18 21:19; Admin Dose 250 MG; Start 11/28/18 at 09:00 Midodrine (Proamatine) 5 mg TID@,13,17 GTB Last administered on 12/03/18 17:23; Admin Dose 5 MG; Start 11/29/18 at 09:00 Alendronate Sodium (Fosamax) 70 mg Mo@AC BREAKFAST PO ; Start 12/02/18 at 07:00 Cefepime HCl 50 ml @ 100 mls/hr Q12 IVPB Last administered on 12/03/18 21:18; Admin Dose 100 MLS/HR; Start 12/02/18 at 21:00 Furosemide (Lasix) 20 mg BID DIURETICS IV Last administered on 12/03/18 18:24; Admin Dose 20 MG; Start 12/03/18 at 08:00 Calcitriol (Rocaltrol) 0.25 mcg DAILY PO Last administered on 12/03/18 08:52; Admin Dose 0.25 MCG; Start 12/03/18 at 09:00 Assessment/Plan Hospital Course (Demo Recall) Acute on chronic hypoxemic/hypercapnic respiratory failure status post intubation currently on the ventilator Shock: Appears to be septic Pneumonia Pleural effusion History of mitral valve replacement currently functioning normally History of most likely heart block status post permanent pacemaker ([employer]) Encephalopathy Cachexia and malnutrition History of rheumatoid arthritis History of ovarian cancer stage IV Thyroid disorder Acute renal failure Diabetes anemia Recommendations: Vent support to be continued to be managed as per pulmonary. weaning as tolerated. Antibiotic management as per internal medicine pulmonary and infectious disease consultants off pressors now REPLACE Lytes prn . I will give more potassium today Diabetic management as per internal medicine GI and DVT prophylaxis Continue with ICU care NAYLA SAUL MD [facility] NAYLA SAUL MD Dec 04, 2018 07:21
[2018-12-04] MEDS ORDERED: POTASSIUM CHLORIDE 20 MEQ POWDER FOR ORAL SOLN NGT ONE ×2 (07:30→08:00)
--- NOTE | 2018-12-04 08:10 | PN ---
DATE: 12/04/2018 SUBJECTIVE: The patient is in serious, but stable condition. The patient was unable to tolerate a C PAP trial yesterday. The patient currently is receiving diuretic therapy. Blood pressures were low overnight. No other events noted. OBJECTIVE: VITAL SIGNS: Blood pressure is 118/23, respirations 20, pulse 90, temperature 97.8. HEENT: Head is normocephalic. NECK: Supple. HEART: Regular rate. LUNGS: Show diminished breath sounds at the base. ABDOMEN: Soft, nontender to palpation without rebound or guarding. EXTREMITIES: Negative for clubbing, cyanosis. Positive edema. DERMATOLOGIC: No rashes. MUSCULOSKELETAL: No joint effusion. NEUROLOGIC: No change in exam. MEDICATIONS: The patient's medications have been reviewed. LABORATORY DATA: From 12/04/2018 was reviewed. The patient's ABG was reviewed. IMAGING STUDIES: Reviewed. ASSESSMENT AND PLAN: 1. Sepsis, status post shock secondary to pneumonia, urinary tract infection. The patient is curren tly off pressor support. Continue broad spectrum antibiotics, follow up with infectious disease. 2. Ventilator-dependent respiratory failure. Vent settings and ABG was reviewed. Continue to monit or. Continue weaning per pulmonary. 3. Volume overload. Continue current diuretic therapy, continue Lasix. We will monitor hemodynamic s closely, deescalate if patient becomes hypotensive. 4. Anemia. Continue to monitor hemoglobin and hematocrit levels. No evidence of bleeding. 5. Mineral bone disorder, monitor calcium and phosphorus levels. Continue vitamin D analogs. 6. Non-ST elevation myocardial infarction type 2. Continue medical management. 7. Nonoliguric acute kidney injury, etiology is secondary to hemodynamics. Renal function is improv ed. Continue to monitor on diuretic therapy. 8. Respiratory acidosis with metabolic compensation. Continue to monitor. 9. History of coronary artery disease. Continue medical management. 10. History of arrhythmia, status post pacemaker. 11. Diabetes. Continue current insulin regimen. 12. History of ovarian cancer stage IV, status post radiation chemotherapy. 13. History of hypothyroidism. 14. History of arthritis. 15. Pancytopenia, improved. 16. Gastrointestinal and deep vein thrombosis prophylaxis. Please note I spent over 30 minutes of critical care time with this patient. Dictated By: SHAUN MCCARTHY/SYBIL Conf#: [id number] DID#: [id number] CC: JESS SAUCEDO MD; STEVIE REN MD;*[facility]*
--- NOTE | 2018-12-04 08:22 | CONS ---
Consult Date/Type/Reason Admit Date/Time Nov 25, 2018 at 23:59 Initial Consult Date 11/26/18 Type of Consult Pulmonary Requesting Provider: SHAUN CHRISTENSEN DO Date/Time of Note DATE: 12/04/18 TIME: 08:21 Subjective Tolerated CPAP trial yesterday however had low tidal volumes and arterial blood gas demonstrated borderline respiratory acidosis. Extubation was held. This morning will be placed back on CPAP and reintubation status discussed with family prior to extubation attempts. Objective Vital Signs Date Temp Pulse Resp B/P (MAP) Pulse Ox O2 O2 Flow FiO2 Time Delivery Rate 12/04/18 90 20 118/23 96 07:00 (54) 12/04/18 97.8 Mechanical 06:00 Ventilator 12/04/18 30 04:53 Intake and Output 12/03/18 12/03/18 12/04/18 1515:00 23:00 07:00 IntakeIntake Total 135.8 ml 657.00 ml 691.96 ml OutputOutput Total 775 ml 1125 ml 1000 ml BalanceBalance -639.2 ml -468.00 ml -308.04 ml Exam GENERAL: Elderly lady on mechanical ventilation VITAL SIGNS: per chart NECK: Supple. No JVD or lymphadenopathy. CARDIAC EXAM: S1, S2. No added sounds or murmurs. CHEST: clear bilaterally, No added sounds, rales or wheezes ABDOMEN: Soft, nontender. No guarding or rebound. EXTREMITIES: No cyanosis, clubbing flaccid right upper extremity NEUROLOGIC: Generalized weakness. No focal deficits. Vent Setting Ventilator Support Mode: AC Fraction of Inspired Oxygen pe: 30 Positive End Expiratory Pressu: 5.0 Results/Medications Result Diagram: 12/04/18 0505 12/04/18 0505 Results 24 hrs Laboratory Tests Test 12/03/18 08:56 12/03/18 11:30 12/03/18 12:07 12/03/18 15:30 Bedside Glucose 170 177 Blood Gas Blood arterial Blood arterial Specimen Source Arterial Blood 12/03/2018 11:40 12/03/2018 3:06: Date Drawn :14 AM 06 PM Arterial Blood 7.303 L 7.311 L pH (Temp corrected) Arterial Blood 72.3 H 72.3 H pCO2 (Temp correct) Arterial Blood 80.5 89.1 pO2 (Temp corrected) Arterial Blood 35.0 H 35.7 H HCO3 Arterial Blood 6.8 H 7.4 H Base Excess Arterial Blood 92.3 L 94.7 L Oxygen Saturatio n Jordi Test ACCEPTAB ACCEPTAB Arterial Blood Right Radial Right Radial Gas Puncture Site Arterial 0.6 0.3 Blood Carboxyhem oglobin Arterial Blood 0.3 0.4 Methemoglobin Blood Gas A-a O2 85.0 H 76.4 H Differential Oxyhemoglobin 91.5 L 94.0 Percent Blood Gas 37.0 37.0 Temperature Blood Gas VENT - CPAP VENT - CPAP Modality FiO2 35.0 35.0 Blood Gas Low 5.0 5.0 PEEP Setting Blood Gas 10 10 Pressure Support Blood Gas AT AT Notified Whom Blood Gas 12/03/2018 12:06 12/03/2018 3:18: Notified Time :43 PM 14 PM Blood Gas Actual 33 Respiration Rate Test 12/03/18 17:25 12/03/18 21:14 12/04/18 00:17 12/04/18 05:05 Bedside Glucose 142 210 185 White Blood 7.3 # Count Red Blood Count 3.02 L Hemoglobin 8.6 L Hematocrit 27.3 L Mean Corpuscular 90.4 Volume Mean Corpuscular 28.5 L Hemoglobin Mean Corpuscular 31.5 L Hemoglobin Tori nt Red Cell 17.1 H Distribution Width Platelet Count 181 Mean Platelet 11.1 H Volume Immature 0.400 Granulocytes % Neutrophils % 95.9 H Lymphocytes % 1.6 L Monocytes % 2.0 Eosinophils % 0.0 Basophils % 0.1 Nucleated Red 0.0 Blood Cells % Immature 0.030 Granulocytes # Neutrophils # 7.0 Lymphocytes # 0.1 L Monocytes # 0.2 L Eosinophils # 0.0 Basophils # 0.0 Nucleated Red 0.0 Blood Cells # Sodium Level 138 Potassium Level 3.6 Chloride Level 100 Carbon Dioxide 36 H Level Anion Gap 2 L Blood Urea 29 H Nitrogen Creatinine 0.37 L Est Glomerular Filtrat Rate mL/min Glucose Level 213 Calcium Level 7.0 L Phosphorus Level 3.1 Magnesium Level 2.0 Test 12/04/18 05:09 Bedside Glucose 215 Medications Current Medications Ondansetron HCl (Zofran Inj) 4 mg Q6H PRN IV NAUSEA AND/OR VOMITING; Start 11/26/18 at 01:00 Albuterol (Ventolin Hfa) 4 puff Q4H RESP THERAPY INH Last administered on 12/04/18 08:18; Admin Dose 4 PUFF; Start 11/26/18 at 01:00 Albuterol (Ventolin Hfa) 4 puff Q2H RESP THERAPY PRN INH SHORTNESS OF BREATH Last administered on 11/28/18 01:53; Admin Dose 4 PUFF; Start 11/26/18 at 01:00 Methylprednisolone Sodium Succinate (Solu-Medrol) 60 mg Q6 IV Last administered on 12/04/18 05:16; Admin Dose 60 MG; Start 11/26/18 at 06:00 Acetaminophen (Tylenol Liquid) 650 mg Q6H PRN PO PAIN LEVEL 1-3 OR FEVER; Start 11/26/18 at 01:00 Morphine Sulfate (morphine) 2 mg Q4H PRN IV PAIN LEVEL 7-10; Start 11/26/18 at 01:00 Lorazepam (Ativan) 1 mg Q2H PRN IV ANXIETY; Start 11/26/18 at 01:00 Enoxaparin Sodium (Lovenox) 40 mg DAILY SC Last administered on 12/03/18 08:57; Admin Dose 40 MG; Start 11/26/18 at 09:00 Propofol 100 ml @ 1.32 mls/hr Q12H IV Last administered on 12/04/18 00:45; Admin Dose 5.28 MLS/HR; Start 11/26/18 at 03:00 Norepinephrine 250 ml @ 1.875 mls/ hr TITRATE IV Last administered on 11/26/18 10:46; Admin Dose 37.5 MLS/HR; Start 11/26/18 at 09:00 Insulin Aspart (Novolog Insulin Pen) NOVOLOG *MILD* ALGORI... Q4 SC Last administered on 12/04/18 05:18; Admin Dose 2 UNIT; Start 11/26/18 at 13:00 Phenylephrine HCl 40 mg/Dextrose 250 ml @ 37.5 mls/hr TITRATE IV Last administ ered on 11/30/18 02:35; Admin Dose 3 MLS/HR; Start 11/26/18 at 11:00 Fentanyl 100 ml @ 2.5 mls/hr TITRATE IV Last administered on 12/03/18 21:27; Admin Dose 5 MLS/HR; Start 11/26/18 at 13:00 IV Flush (NS 10 ml) 10 ml PRN PRN IV IV PROTOCOL; Start 11/26/18 at 15:00 Lansoprazole (Prevacid) 30 mg DAILY@06 GTB Last administered on 12/04/18 05:16; Admin Dose 30 MG; Start 11/28/18 at 06:00 Fluconazole (Diflucan) 100 mg DAILY PO Last administered on 12/03/18 08:52; Admin Dose 100 MG; Start 11/27/18 at 15:00 Sodium Phosphate (Neutra-Phos) 250 mg BID GTB Last administered on 12/03/18 21:19; Admin Dose 250 MG; Start 11/28/18 at 09:00 Midodrine (Proamatine) 5 mg TID@,,17 GTB Last administered on 12/03/18 17:23; Admin Dose 5 MG; Start 11/29/18 at 09:00 Alendronate Sodium (Fosamax) 70 mg Mo@AC BREAKFAST PO ; Start 12/02/18 at 07:00 Cefepime HCl 50 ml @ 100 mls/hr Q12 IVPB Last administered on 12/03/18at 21:18; Admin Dose 100 MLS/HR; Start 12/02/18 at 21:00 Furosemide (Lasix) 20 mg BID DIURETICS IV Last administered on 12/03/18 18:24; Admin Dose 20 MG; Start 12/03/18 at 08:00 Calcitriol (Rocaltrol) 0.25 mcg DAILY PO Last administered on 12/03/18 08:52; Admin Dose 0.25 MCG; Start 12/03/18 at 09:00 Assessment/Plan Hospital Course (Demo Recall) IMPRESSION: 1. [id number] hypercapnic respiratory failure. 2. Likely healthcare-associated pneumonia and loculated effusion. 3. History of mitral valve replacement. 4. Status post septic shock likely secondary to above. PLAN: 1. Continue vasopressors. Titrate to keep map greater than 65. 2. Decrease O2 as tolerated. 3. Attempt CPAP weaning trial again today. Will clarify reintubation status prior to extubation. 4. Antibiotics. 5. Tube feeding as tolerated. 6. Adrenal insufficiency with cortisol 5.3. May need hydrocortisone if hypotensive. Critical care time 40 minutes. Discussed with family at bedside. JESS SAUCEDO MD, [facility] Dec 04, 2018 08:21
[2018-12-04] MEDS: CEFEPIME 1GM/50 ML (PMX) 50 ML IVPB SCH ×2 (09:14→20:35)
[2018-12-04] MEDS: CALCITRIOL 0.25 MCG CAP PO SCH (09:14)
[2018-12-04] MEDS: NEUTRA-PHOS 250 MG PACKET GTB SCH ×2 (09:15→20:35)
[2018-12-04] MEDS: FLUCONAZOLE 100 MG TAB PO SCH (09:16)
[2018-12-04] MEDS: ENOXAPARIN 40 MG/0.4 ML SYG SC SCH (09:17)
[2018-12-04] MEDS: BALSAM PERU/CASTOR OIL 60 GM TUBE TOP SCH ×2 (09:29→20:35)
[2018-12-04] MEDS: MIDODRINE 5 MG TAB GTB SCH ×3 (09:29→17:03)
--- NOTE | 2018-12-04 14:56 | CONS ---
Assessment/Plan Assessment/Plan Hospital Course (Demo Recall) No acute changes overnight patient remains intubated family at bedside. She failed weaning trial again this morning. Also had been hypothermic. WBC 7.3 neutrophils 95.9 BUN 29 creatinine 0.37 Chest x-ray this morning reveals slight improved aeration Antimicrobials: Fluconazole, cefepime Microbiology: Urine cx + Nicole albicans, sputum culture grew Nicole albicans/E coli Indwelling: Endotracheal tube, NG tube, Das, right upper extremity PICC line Physical examination: This is a chronically ill-appearing wasted elderly woman who is intubated sedated in no distress. Head atraumatic normocephalic neck is supple chest rise symmetrical breath sounds diminished bases heart: S1-S2 abdomen soft bowel sounds present extremities without cyanosis Assessment: 1. Sepsis s/p shock 2. Acute on chronic hypoxemic respiratory failure 3. Bilateral pneumonia 4. Nicole albicans UTI 5. Coronary artery disease with a history of mitral valve replacement Plan: Remains unchanged, continue present care, antibiotics, follow pulmonary recommendations Discussed with family Consultation Date/Type/Reason Admit Date/Time Nov 25, 2018 at 23:59 Initial Consult Date 11/26/18 Type of Consult id Requesting Provider: SHAUN CHRISTENSEN DO Date/Time of Note DATE: 12/04/18 TIME: 14:55 Exam/Review of Systems Exam Vitals Vital Signs Date Temp Pulse Resp B/P (MAP) Pulse Ox O2 O2 Flow FiO2 Time Delivery Rate 12/04/18 79 20 113/71 98 Mechanical 14:00 (85) Ventilator 12/04/18 40 13:19 12/04/18 98.0 12:00 Intake and Output 12/03/18 12/03/18 12/04/18 1515:00 23:00 07:00 IntakeIntake Total 135.8 ml 657.00 ml 751.96 ml OutputOutput Total 775 ml 1125 ml 1035 ml BalanceBalance -639.2 ml -468.00 ml -283.04 ml Results Result Diagram: 12/04/18 0505 12/04/18 0505 Results 24hrs Laboratory Tests Test 12/03/18 15:30 12/03/18 17:25 12/03/18 21:14 12/04/18 00:17 Blood Gas Blood arterial Specimen Source Arterial Blood 12/03/2018 3:06: Date Drawn 06 PM Arterial Blood 7.311 L pH (Temp corrected) Arterial Blood 72.3 H pCO2 (Temp correct) Arterial Blood 89.1 pO2 (Temp corrected) Arterial Blood 35.7 H HCO3 Arterial Blood 7.4 H Base Excess Arterial Blood 94.7 L Oxygen Saturatio n Jordi Test ACCEPTAB Arterial Blood Right Radial Gas Puncture Site Arterial 0.3 Blood Carboxyhem oglobin Arterial Blood 0.4 Methemoglobin Blood Gas A-a O2 76.4 H Differential Oxyhemoglobin 94.0 Percent Blood Gas 37.0 Temperature Blood Gas Actual 33 Respiration Rate Blood Gas VENT - CPAP Modality FiO2 35.0 Blood Gas Low 5.0 PEEP Setting Blood Gas 10 Pressure Support Blood Gas AT Notified Whom Blood Gas 12/03/2018 3:18: Notified Time 14 PM Bedside Glucose 142 210 185 Test 12/04/18 05:05 12/04/18 05:09 12/04/18 09:19 12/04/18 10:30 White Blood 7.3 # Count Red Blood Count 3.02 L Hemoglobin 8.6 L Hematocrit 27.3 L Mean Corpuscular 90.4 Volume Mean Corpuscular 28.5 L Hemoglobin Mean Corpuscular 31.5 L Hemoglobin Tori nt Red Cell 17.1 H Distribution Width Platelet Count 181 Mean Platelet 11.1 H Volume Immature 0.400 Granulocytes % Neutrophils % 95.9 H Lymphocytes % 1.6 L Monocytes % 2.0 Eosinophils % 0.0 Basophils % 0.1 Nucleated Red 0.0 Blood Cells % Immature 0.030 Granulocytes # Neutrophils # 7.0 Lymphocytes # 0.1 L Monocytes # 0.2 L Eosinophils # 0.0 Basophils # 0.0 Nucleated Red 0.0 Blood Cells # Sodium Level 138 Potassium Level 3.6 Chloride Level 100 Carbon Dioxide 36 H Level Anion Gap 2 L Blood Urea 29 H Nitrogen Creatinine 0.37 L Est Glomerular Filtrat Rate mL/min Glucose Level 213 Calcium Level 7.0 L Phosphorus Level 3.1 Magnesium Level 2.0 Bedside Glucose 215 228 H Blood Gas Blood arterial Specimen Source Arterial Blood 12/04/2018 10:22 Date Drawn :45 AM Arterial Blood 7.349 L pH (Temp corrected) Arterial Blood 66.9 H pCO2 (Temp correct) Arterial Blood 93.9 H pO2 (Temp corrected) Arterial Blood 36.0 H HCO3 Arterial Blood 8.4 H Base Excess Arterial Blood 95.7 Oxygen Saturatio n Jordi Test ACCEPTAB Arterial Blood Right Radial Gas Puncture Site Arterial 0.3 Blood Carboxyhem oglobin Arterial Blood 0.5 Methemoglobin Blood Gas A-a O2 114.4 H Differential Oxyhemoglobin 94.9 Percent Blood Gas 37.0 Temperature Blood Gas Actual 27 Respiration Rate Blood Gas VENT - CPAP Modality FiO2 40.0 Blood Gas Low 5.0 PEEP Setting Blood Gas 10 Pressure Support Blood Gas TM Notified Whom Blood Gas 12/04/2018 10:35 Notified Time :25 AM Test 12/04/18 12:11 Bedside Glucose 219 Medications Medication Current Medications Ondansetron HCl (Zofran Inj) 4 mg Q6H PRN IV NAUSEA AND/OR VOMITING; Start 11/26/18 at 01:00 Albuterol (Ventolin Hfa) 4 puff Q4H RESP THERAPY INH Last administered on 12/04/18 13:22; Admin Dose 4 PUFF; Start 11/26/18 at 01:00 Albuterol (Ventolin Hfa) 4 puff Q2H RESP THERAPY PRN INH SHORTNESS OF BREATH Last administered on 11/28/18 01:53; Admin Dose 4 PUFF; Start 11/26/18 at 01:00 Methylprednisolone Sodium Succinate (Solu-Medrol) 60 mg Q6 IV Last administered on 12/04/18 12:09; Admin Dose 60 MG; Start 11/26/18 at 06:00 Acetaminophen (Tylenol Liquid) 650 mg Q6H PRN PO PAIN LEVEL 1-3 OR FEVER; Start 11/26/18 at 01:00 Morphine Sulfate (morphine) 2 mg Q4H PRN IV PAIN LEVEL 7-10; Start 11/26/18 at 01:00 Lorazepam (Ativan) 1 mg Q2H PRN IV ANXIETY; Start 11/26/18 at 01:00 Enoxaparin Sodium (Lovenox) 40 mg DAILY SC Last administered on 12/04/18 09:17; Admin Dose 40 MG; Start 11/26/18 at 09:00 Propofol 100 ml @ 1.32 mls/hr Q12H IV Last administered on 12/04/18 00:45; Admin Dose 5.28 MLS/HR; Start 11/26/18 at 03:00 Norepinephrine 250 ml @ 1.875 mls/ hr TITRATE IV Last administered on 11/26/18 10:46; Admin Dose 37.5 MLS/HR; Start 11/26/18 at 09:00 Insulin Aspart (Novolog Insulin Pen) NOVOLOG *MILD* ALGORI... Q4 SC Last administered on 12/04/18 12:14; Admin Dose 2 UNIT; Start 11/26/18 at 13:00 Phenylephrine HCl 40 mg/Dextrose 250 ml @ 37.5 mls/hr TITRATE IV Last administered on 11/30/18 02:35; Admin Dose 3 MLS/HR; Start 11/26/18 at 11:00 Fentanyl 100 ml @ 2.5 mls/hr TITRATE IV Last administered on 12/03/18 21:27; Admin Dose 5 MLS/HR; Start 11/26/18 at 13:00 IV Flush (NS 10 ml) 10 ml PRN PRN IV IV PROTOCOL; Start 11/26/18 at 15:00 Lansoprazole (Prevacid) 30 mg DAILY@06 GTB Last administered on 12/04/18 05:16; Admin Dose 30 MG; Start 11/28/18 at 06:00 Fluconazole (Diflucan) 100 mg DAILY PO Last administered on 12/04/18 09:16; Admin Dose 100 MG; Start 11/27/18 at 15:00 Sodium Phosphate (Neutra-Phos) 250 mg BID GTB Last administered on 12/04/18 09:15; Admin Dose 250 MG; Start 11/28/18 at 09:00 Midodrine (Proamatine) 5 mg TID@,13,17 GTB Last administered on 12/04/18 12:09; Admin Dose 5 MG; Start 11/29/18 at 09:00 Alendronate Sodium (Fosamax) 70 mg Mo@AC BREAKFAST PO ; Start 12/02/18 at 07:00 Cefepime HCl 50 ml @ 100 mls/hr Q12 IVPB Last administered on 12/04/18 09:14; Admin Dose 100 MLS/HR; Start 12/02/18 at 21:00 Furosemide (Lasix) 20 mg BID DIURETICS IV Last administered on 12/03/18 18:24; Admin Dose 20 MG; Start 12/03/18 at 08:00 Calcitriol (Rocaltrol) 0.25 mcg DAILY PO Last administered on 4/24/19at 09:14; Admin Dose 0.25 MCG; Start 12/03/18 at 09:00 JODY BOYD NP Dec 04, 2018 14:56
[2018-12-04] MEDS: FENTAnyl (DRIP) 1000 mcg/100mL 100 ML IV SCH (20:48)
[2018-12-05] VITALS (36 sets, daily range): BP systolic 82–136; BP diastolic 54–106; PULSE 68–100; RESP 10–33
[2018-12-05] MEDS: INSULIN ASPART [NOVOLOG] 3 ML PEN SC SCH ×6 (00:31→21:00)
[2018-12-05] MEDS: ALBUTEROL HFA 8 GM INHALER INH SCH ×6 (01:05→20:15)
[2018-12-05] MEDS: FUROSEMIDE 20 MG INJ IV SCH ×3 (05:44→17:13)
[2018-12-05] MEDS: METHYLPREDNISOLONE 125 MG INJ IV SCH ×3 (05:44→17:13)
[2018-12-05] MEDS: LANSOPRAZOLE 30 MG CAP GTB SCH (05:45)
--- NOTE | 2018-12-05 07:17 | CONS ---
Consult Date/Type/Reason Admit Date/Time Nov 25, 2018 at 23:59 Initial Consult Date 11/26/18 Type of Consultation: cv Requesting Provider: SHAUN CHRISTENSEN DO Date/Time of Note DATE: 12/05/18 TIME: 07:14 Subjective Interventional cardiology follow-up progress note Subjective: Case discussed with staff and telemetry was reviewed. Patient remains in sinus rhythm with ventricular pacing. HR is STABLE now d/w physicians including pt's PCP DR Dixon There is no report of any chest pain or pressure She is not hypotensive and is off Maikol-Synephrine drip. Patient has failed weaning yesterday again Objective: General: Elderly female cachectic looking appears to be older than stated age status post intubation on the vent HEENT: NC/AT. pupils are equal. round. NECK: NO JVD. no stridor. CV: RRR. systolic murmur; no gallop or rubs. PULM: no wheezing + rhonchi more on the right GI: SOFT, NT, ND, no rebound or guarding Extremity: 1+ B/L ANKLE edema. no clubbing. neuro: awake and follows command Psych: calm rectal: deferred : normal Chest x-ray shows ET and NG tubes in satisfactory position. Increase moderate large right pleural effusion, right middle lobe and basilar consolidation or atelectasis. Echocardiogram was personally reviewed which showed normal LV size ejection fraction of about 45-50% EKG was personally reviewed which shows ventricular paced rhythm CT Chest 11/27: 1. Findings compatible with bilateral bronchiolitis and bronchopneumonia, greater on the right, significantly increased when compared to the prior CT. Mild bilateral pleural effusions, grossly stable. 2. Stable mild cardiomegaly. Coronary arterial and aortic atherosclerotic calcifications. 3. Lines and tubes in place, as above. 4. No evidence of mass or lymphadenopath Objective Vitals Vital Signs Date Temp Pulse Resp B/P (MAP) Pulse Ox O2 O2 Flow FiO2 Time Delivery Rate 12/05/18 92 14 100/65 96 Mechanical 07:00 (77) Ventilator 12/05/18 40 05:25 12/05/18 97.7 04:00 Intake and Output 12/04/18 12/04/18 12/05/18 1414:59 22:59 06:59 IntakeIntake Total 556.08 ml 707.84 ml 655.64 ml OutputOutput Total 310 ml 770 ml 450 ml BalanceBalance 246.08 ml -62.16 ml 205.64 ml Results/Medications Result Diagram: 12/05/18 0500 12/05/18 0500 Results 24 hrs Laboratory Tests Test 12/04/18 09:19 12/04/18 10:30 12/04/18 12:11 12/04/18 17:05 Bedside Glucose 228 H 219 217 Blood Gas Blood arterial Specimen Source Arterial Blood 12/04/2018 10:22: Date Drawn 45 AM Arterial Blood pH 7.349 L (Temp corrected) Arterial Blood 66.9 H pCO2 (Temp correct) Arterial Blood 93.9 H pO2 (Temp corrected) Arterial Blood 36.0 H HCO3 Arterial Blood 8.4 H Base Excess Arterial Blood 95.7 Oxygen Saturation Jordi Test ACCEPTAB Arterial Blood Right Radial Gas Puncture Site Arterial 0.3 Blood Carboxyhemo globin Arterial Blood 0.5 Methemoglobin Blood Gas A-a O2 114.4 H Differential Oxyhemoglobin 94.9 Percent Blood Gas 37.0 Temperature Blood Gas Actual 27 Respiration Rate Blood Gas VENT - CPAP Modality FiO2 40.0 Blood Gas Low 5.0 PEEP Setting Blood Gas 10 Pressure Support Blood Gas TM Notified Whom Blood Gas 12/04/2018 10:35: Notified Time 25 AM Test 12/04/18 20:36 12/05/18 00:28 12/05/18 04:58 12/05/18 05:00 Bedside Glucose 263 H 229 H 214 White Blood Count 9.0 # Red Blood Count 2.93 L Hemoglobin 8.3 L Hematocrit 26.9 L Mean Corpuscular 91.8 Volume Mean Corpuscular 28.3 L Hemoglobin Mean Corpuscular 30.9 L Hemoglobin Concen t Red Cell 17.7 H Distribution Width Platelet Count 164 Mean Platelet 11.0 H Volume Immature 0.600 H Granulocytes % Neutrophils % 96.8 H Lymphocytes % 0.7 L Monocytes % 1.8 Eosinophils % 0.0 Basophils % 0.1 Nucleated Red 0.0 Blood Cells % Immature 0.050 H Granulocytes # Neutrophils # 8.7 H Lymphocytes # 0.1 L Monocytes # 0.2 L Eosinophils # 0.0 Basophils # 0.0 Nucleated Red 0.0 Blood Cells # Sodium Level 138 Potassium Level 4.2 Chloride Level 98 Carbon Dioxide 38 H Level Anion Gap 2 L Blood Urea 29 H Nitrogen Creatinine 0.30 L Est Glomerular Filtrat Rate mL/min Glucose Level 163 Calcium Level 6.7 L Phosphorus Level 2.7 Magnesium Level 2.0 Home Meds Reported Medications Acetaminophen* (Tylenol*) 325 Mg Tablet, 650 MG PO Q6H PRN for PAIN AND OR ELEVATED TEMP, TAB 11/30/18 Magnesium Oxide* (Mag-Oxide*) 400 Mg Tablet, 400 MG PO BID, TAB 11/30/18 Levothyroxine Sodium* (Synthroid*) 50 Mcg Tablet, 50 MCG PO BEFORE BREAKFAST, #30 TAB 11/30/18 Potassium Chloride* (Potassium Chloride*) 8 Meq Capsule.er, 10 MEQ PO BID, CAP 11/30/18 Furosemide* (Furosemide*) 40 Mg Tablet, 40 MG PO DAILY, TAB 11/30/18 Cyanocobalamin (B12 Health Booster) 1,000 Mcg/15 Ml Oral.susp, 5000 MCG PO DAILY 11/30/18 Atorvastatin Calcium (Atorvastatin Calcium) 10 Mg Tablet, 10 MG PO QHS, #30 TAB 11/30/18 Aspirin* (Devon Aspirin* Chew) 81 Mg Tab.chew, 81 MG PO BID, TAB.CHEW 11/30/18 Acetazolamide* (Acetazolamide*) 250 Mg Tablet, 250 MG PO DAILY, #60 TAB 11/30/18 Alendronate Sodium* (Fosamax*) 70 Mg Tablet, 70 MG PO Q7D, #4 TAB 11/30/18 Medications Current Medications Ondansetron HCl (Zofran Inj) 4 mg Q6H PRN IV NAUSEA AND/OR VOMITING; Start 11/26/18 at 01:00 Albuterol (Ventolin Hfa) 4 puff Q4H RESP THERAPY INH Last administered on 12/05/18at 05:25; Admin Dose 4 PUFF; Start 11/26/18 at 01:00 Albuterol (Ventolin Hfa) 4 puff Q2H RESP THERAPY PRN INH SHORTNESS OF BREATH Last administered on 11/28/18at 01:53; Admin Dose 4 PUFF; Start 11/26/18 at 01:00 Methylprednisolone Sodium Succinate (Solu-Medrol) 60 mg Q6 IV Last administered on 12/05/18at 05:44; Admin Dose 60 MG; Start 11/26/18 at 06:00 Acetaminophen (Tylenol Liquid) 650 mg Q6H PRN PO PAIN LEVEL 1-3 OR FEVER; Start 11/26/18 at 01:00 Morphine Sulfate (morphine) 2 mg Q4H PRN IV PAIN LEVEL 7-10; Start 11/26/18 at 01:00 Lorazepam (Ativan) 1 mg Q2H PRN IV ANXIETY; Start 11/26/18 at 01:00 Enoxaparin Sodium (Lovenox) 40 mg DAILY SC Last administered on 12/04/18 09:17; Admin Dose 40 MG; Start 11/26/18 at 09:00 Propofol 100 ml @ 1.32 mls/hr Q12H IV Last administered on 12/04/18 18:49; Admin Dose 5.28 MLS/HR; Start 11/26/18 at 03:00 Norepinephrine 250 ml @ 1.875 mls/ hr TITRATE IV Last administered on 11/26/18 10:46; Admin Dose 37.5 MLS/HR; Start 11/26/18 at 09:00 Insulin Aspart (Novolog Insulin Pen) NOVOLOG *MILD* ALGORI... Q4 SC Last administered on 12/05/18 05:01; Admin Dose 2 UNIT; Start 11/26/18 at 13:00 Phenylephrine HCl 40 mg/Dextrose 250 ml @ 37.5 mls/hr TITRATE IV Last administered on 11/30/18 02:35; Admin Dose 3 MLS/HR; Start 11/26/18 at 11:00 Fentanyl 100 ml @ 2.5 mls/hr TITRATE IV Last administered on 12/04/18 20:48; Admin Dose 5 MLS/HR; Start 11/26/18 at 13:00 IV Flush (NS 10 ml) 10 ml PRN PRN IV IV PROTOCOL; Start 11/26/18 at 15:00 Lansoprazole (Prevacid) 30 mg DAILY@06 GTB Last administered on 12/05/18 05:45; Admin Dose 30 MG; Start 11/28/18 at 06:00 Fluconazole (Diflucan) 100 mg DAILY PO Last administered on 12/04/18 09:16; Admin Dose 100 MG; Start 11/27/18 at 15:00 Sodium Phosphate (Neutra-Phos) 250 mg BID GTB Last administered on 12/04/18 20:35; Admin Dose 250 MG; Start 11/28/18 at 09:00 Midodrine (Proamatine) 5 mg TID@,13,17 GTB Last administered on 12/04/18 17:03; Admin Dose 5 MG; Start 11/29/18 at 09:00 Alendronate Sodium (Fosamax) 70 mg Mo@AC BREAKFAST PO ; Start 12/02/18 at 07:00 Cefepime HCl 50 ml @ 100 mls/hr Q12 IVPB Last administered on 12/04/18 20:35; Admin Dose 100 MLS/HR; Start 12/02/18 at 21:00 Furosemide (Lasix) 20 mg BID DIURETICS IV Last administered on 12/05/18 06:29; Admin Dose 20 MG; Start 12/03/18 at 08:00 Calcitriol (Rocaltrol) 0.25 mcg DAILY PO Last administered on 12/04/18 09:14; Admin Dose 0.25 MCG; Start 12/03/18 at 09:00 Assessment/Plan Hospital Course (Demo Recall) Acute on chronic hypoxemic/hypercapnic respiratory failure status post intubation currently on the ventilator Shock: Appears to be septic Pneumonia Pleural effusion History of mitral valve replacement currently functioning normally History of most likely heart block status post permanent pacemaker ([employer] water systems) Encephalopathy Cachexia and malnutrition History of rheumatoid arthritis History of ovarian cancer stage IV Thyroid disorder Acute renal failure Diabetes anemia Recommendations: Vent support to be continued to be managed as per pulmonary. weaning as tolerated. Antibiotic management as per internal medicine pulmonary and infectious disease consultants off pressors now REPLACE Lytes prn . Diabetic management as per internal medicine GI and DVT prophylaxis s/p lasix Continue with ICU care NAYLA SAUL MD MERGED WITH [facility] NAYLA SAUL MD Dec 05, 2018 07:16
--- NOTE | 2018-12-05 08:24 | PN ---
DATE: 12/05/2018 SUBJECTIVE: The patient remains in serious condition on full ventilatory support. The patient is at tempting weaning by pulmonary. No other events noted. OBJECTIVE: VITAL SIGNS: Blood pressure is 100/65, pulse 92, respiration 14. HEENT: Head is normocephalic. NECK: Supple. HEART: Regular rate. LUNGS: Show diminished breath sounds at the base. ABDOMEN: Soft, nontender to palpation. No rebound or guarding. EXTREMITIES: Negative for clubbing, cyanosis. Positive edema. DERMATOLOGIC: No rashes. MUSCULOSKELETAL: No joint effusion. NEUROLOGIC: No change in exam. MEDICATIONS: The patient's medications have been reviewed. LABORATORY DATA: From 12/05/2018 was reviewed. The patient's ABG was reviewed. IMAGING STUDIES: Chest x-ray 12/04/2018. Continues to show patchy opacities, possible edema versus infiltrate. ASSESSMENT AND PLAN: 1. Sepsis, status post shock secondary to pneumonia and urinary tract infection. The patient is cur rently off pressors. Continue broad spectrum antibiotics. Follow up with infectious disease. 2. Ventilator dependent respiratory failure. Vent settings and ABG was reviewed. Continue to monit or. Continue weaning per pulmonary. 3. Volume overload. Continue Lasix. Monitor hemodynamics closely. 4. Anemia. Monitor hemoglobin and hematocrit levels. 5. Mineral bone disorder, monitor calcium and phosphorus levels. Continue vitamin D analogs intermi ttently. 6. Nonoliguric acute kidney injury. Etiology is secondary to hemodynamics. Renal function is impro mary ann. Continue to monitor. Continue diuretic regimen. 7. Non-STEMI, type 2. Continue medical management. 8. Respiratory acidosis with metabolic compensation. Continue to monitor. 9. History of coronary artery disease. Continue medical management. 10. History of arrhythmia, status post pacemaker. 11. Diabetes. Continue current insulin regimen. 12. History of ovarian cancer stage IV, status post-radiation and chemotherapy. 13. History of hypothyroidism. 14. History of arthritis. 15. Pancytopenia, improved. 16. Gastrointestinal and deep venous thrombosis prophylaxis. Please note I spent over 30 minutes of critical care time with this patient. Dictated By: SHAUN CHRISTENSEN DO NR/NTS Conf#: [id number] DID#: [id number]
[2018-12-05] MEDS: CALCITRIOL 0.25 MCG CAP PO SCH (09:01)
[2018-12-05] MEDS: CEFEPIME 1GM/50 ML (PMX) 50 ML IVPB SCH ×2 (09:01→22:26)
[2018-12-05] MEDS: NEUTRA-PHOS 250 MG PACKET GTB SCH ×2 (09:01→22:26)
[2018-12-05] MEDS: FLUCONAZOLE 100 MG TAB PO SCH (09:01)
[2018-12-05] MEDS: ENOXAPARIN 40 MG/0.4 ML SYG SC SCH (09:02)
[2018-12-05] MEDS: BALSAM PERU/CASTOR OIL 60 GM TUBE TOP SCH ×2 (09:04→21:00)
[2018-12-05] MEDS: MIDODRINE 5 MG TAB GTB SCH ×3 (09:29→17:13)
--- NOTE | 2018-12-05 09:57 | CONS ---
Assessment/Plan Assessment/Plan Assessment/Plan (Daily) Ventilator setting; SIMV of 10, pressure support of 14, PEEP of 5, tidal volume 450, 40% FiO2. Patient is currently on propofol 10 mics per minute, fentanyl 50 mics per hour. Assessment recommendations; 1. Patient admitted with respiratory failure due to severe bilateral pneumonia as well as severe hypercapnic respiratory failure due to underlying COPD. Patient exhibiting significant hypercapnia despite aggressive invasive mechanical ventilation. 2. History of mitral valve placement. 3. Possibly underlying interstitial lung disease. 4. Anemia and thrombocytopenia. Continue current supportive care. Patient likely will need to have a tracheostomy performed. Based upon ABG findings as well as chest x-ray it is unlikely patient can handle extubation at this point. Prognosis is very poor. 35-minute of critical care time was spent evaluating the patient. Consultation Date/Type/Reason Admit Date/Time Nov 25, 2018 at 23:59 Initial Consult Date 11/26/18 Type of Consult Pulmonary/critical care Reason for Consultation Patient's condition remains critical. Patient however has remained hem odynamically stable. General exam; elderly woman, orally intubated, awake and responsive appropriate ly. Currently no distress. Orally intubated. Requesting Provider: SHAUN CHRISTENSEN DO Date/Time of Note DATE: 12/05/18 TIME: 09:54 Exam/Review of Systems Exam Vitals Vital Signs Date Temp Pulse Resp B/P (MAP) Pulse Ox O2 O2 Flow FiO2 Time Delivery Rate 12/05/18 86 15 97 40 09:02 12/05/18 97.0 94/61 (72) Mechanical 08:00 Ventilator Intake and Output 12/04/18 12/04/18 12/05/18 1515:00 23:00 07:00 IntakeIntake Total 555.8 ml 708.12 ml 654.32 ml OutputOutput Total 315 ml 805 ml 425 ml BalanceBalance 240.8 ml -96.88 ml 229.32 ml Exam HEENT exam; supple neck, no JVD. No lymphadenopathy. Midline trachea. No thyromegaly. Patient has fair dentition. Orally intubated. No neck masses. Chest exam; diminished breath sounds throughout. S1-S2 audible, no murmurs. Regular rhythm. Abdomen exam; soft, scaphoid. No organomegaly. Bowel is audible. Extremity exam; no peripheral edema clubbing. FOOD [employer]ER exam; patient is awake and appropriately responsive. Results Result Diagram: 12/05/18 0500 12/05/18 0500 Results 24hrs Laboratory Tests Test 12/04/18 10:30 12/04/18 12:11 12/04/18 17:05 12/04/18 20:36 Blood Gas Blood arterial Specimen Source Arterial Blood 12/04/2018 10:22: Date Drawn 45 AM Arterial Blood pH 7.349 L (Temp corrected) Arterial Blood 66.9 H pCO2 (Temp correct) Arterial Blood 93.9 H pO2 (Temp corrected) Arterial Blood 36.0 H HCO3 Arterial Blood 8.4 H Base Excess Arterial Blood 95.7 Oxygen Saturation Jordi Test ACCEPTAB Arterial Blood Right Radial Gas Puncture Site Arterial 0.3 Blood Carboxyhemo globin Arterial Blood 0.5 Methemoglobin Blood Gas A-a O2 114.4 H Differential Oxyhemoglobin 94.9 Percent Blood Gas 37.0 Temperature Blood Gas Actual 27 Respiration Rate Blood Gas VENT - CPAP Modality FiO2 40.0 Blood Gas Low 5.0 PEEP Setting Blood Gas 10 Pressure Support Blood Gas TM Notified Whom Blood Gas 12/04/2018 10:35: Notified Time 25 AM Bedside Glucose 219 217 263 H Test 12/05/18 00:28 12/05/18 04:58 12/05/18 05:00 12/05/18 09:00 Bedside Glucose 229 H 214 246 H White Blood Count 9.0 # Red Blood Count 2.93 L Hemoglobin 8.3 L Hematocrit 26.9 L Mean Corpuscular 91.8 Volume Mean Corpuscular 28.3 L Hemoglobin Mean Corpuscular 30.9 L Hemoglobin Concen t Red Cell 17.7 H Distribution Width Platelet Count 164 Mean Platelet 11.0 H Volume Immature 0.600 H Granulocytes % Neutrophils % 96.8 H Lymphocytes % 0.7 L Monocytes % 1.8 Eosinophils % 0.0 Basophils % 0.1 Nucleated Red 0.0 Blood Cells % Immature 0.050 H Granulocytes # Neutrophils # 8.7 H Lymphocytes # 0.1 L Monocytes # 0.2 L Eosinophils # 0.0 Basophils # 0.0 Nucleated Red 0.0 Blood Cells # Sodium Level 138 Potassium Level 4.2 Chloride Level 98 Carbon Dioxide 38 H Level Anion Gap 2 L Blood Urea 29 H Nitrogen Creatinine 0.30 L Est Glomerular Filtrat Rate mL/min Glucose Level 163 Calcium Level 6.7 L Phosphorus Level 2.7 Magnesium Level 2.0 Medications Medication Current Medications Ondansetron HCl (Zofran Inj) 4 mg Q6H PRN IV NAUSEA AND/OR VOMITING; Start 11/26/18 at 01:00 Albuterol (Ventolin Hfa) 4 puff Q4H RESP THERAPY INH Last administered on 12/05/18 09:06; Admin Dose 4 PUFF; Start 11/26/18 at 01:00 Albuterol (Ventolin Hfa) 4 puff Q2H RESP THERAPY PRN INH SHORTNESS OF BREATH Last administered on 11/28/18 01:53; Admin Dose 4 PUFF; Start 11/26/18 at 01:00 Methylprednisolone Sodium Succinate (Solu-Medrol) 60 mg Q6 IV Last administered on 12/05/18 05:44; Admin Dose 60 MG; Start 11/26/18 at 06:00 Acetaminophen (Tylenol Liquid) 650 mg Q6H PRN PO PAIN LEVEL 1-3 OR FEVER; Start 11/26/18 at 01:00 Morphine Sulfate (morphine) 2 mg Q4H PRN IV PAIN LEVEL 7-10; Start 11/26/18 at 01:00 Lorazepam (Ativan) 1 mg Q2H PRN IV ANXIETY; Start 11/26/18 at 01:00 Enoxaparin Sodium (Lovenox) 40 mg DAILY SC Last administered on 12/05/18 09:02; Admin Dose 40 MG; Start 11/26/18 at 09:00 Propofol 100 ml @ 1.32 mls/hr Q12H IV Last administered on 12/04/18 18:49; Admin Dose 5.28 MLS/HR; Start 11/26/18 at 03:00 Norepinephrine 250 ml @ 1.875 mls/ hr TITRATE IV Last administered on 11/26/18 10:46; Admin Dose 37.5 MLS/HR; Start 11/26/18 at 09:00 Insulin Aspart (Novolog Insulin Pen) NOVOLOG *MILD* ALGORI... Q4 SC Last administered on 12/05/18 09:03; Admin Dose 3 UNIT; Start 11/26/18 at 13:00 Phenylephrine HCl 40 mg/Dextrose 250 ml @ 37.5 mls/hr TITRATE IV Last administered on 11/30/18 02:35; Admin Dose 3 MLS/HR; Start 11/26/18 at 11:00 Fentanyl 100 ml @ 2.5 mls/hr TITRATE IV Last administered on 12/04/18 20:48; Admin Dose 5 MLS/HR; Start 11/26/18 at 13:00 IV Flush (NS 10 ml) 10 ml PRN PRN IV IV PROTOCOL; Start 11/26/18 at 15:00 Lansoprazole (Prevacid) 30 mg DAILY@06 GTB Last administered on 12/05/18 05:45; Admin Dose 30 MG; Start 11/28/18 at 06:00 Fluconazole (Diflucan) 100 mg DAILY PO Last administered on 12/05/18 09:01; Admin Dose 100 MG; Start 11/27/18 at 15:00 Sodium Phosphate (Neutra-Phos) 250 mg BID GTB Last administered on 12/05/18 09:01; Admin Dose 250 MG; Start 11/28/18 at 09:00 Midodrine (Proamatine) 5 mg TID@,,17 GTB Last administered on 12/05/18 09:29; Admin Dose 5 MG; Start 11/29/18 at 09:00 Alendronate Sodium (Fosamax) 70 mg Mo@AC BREAKFAST PO ; Start 12/02/18 at 07:00 Cefepime HCl 50 ml @ 100 mls/hr Q12 IVPB Last administered on 12/05/18 09:01; Admin Dose 100 MLS/HR; Start 12/02/18 at 21:00 Furosemide (Lasix) 20 mg BID DIURETICS IV Last administered on 12/05/18 06:29; Admin Dose 20 MG; Start 12/03/18 at 08:00 Calcitriol (Rocaltrol) 0.25 mcg DAILY PO Last administered on 12/05/18 09:01; Admin Dose 0.25 MCG; Start 12/03/18 at 09:00 ENRIQUE WINKLER Dec 05, 2018 09:57
--- NOTE | 2018-12-05 14:04 | CONS ---
Assessment/Plan Assessment/Plan Hospital Course (Demo Recall) On CPAP, looks comfortable, family at bedside. WBC 9 platelets 164 neutrophils 96.8 BUN 29 creatinine 0.30 Antimicrobials: Fluconazole, cefepime Microbiology: Urine cx + Nicole albicans, sputum culture grew Nicole albicans/E coli Indwelling: Endotracheal tube, NG tube, Das, right upper extremity PICC line Physical examination: This is a chronically ill-appearing wasted elderly woman who is intubated sedated in no distress. Head atraumatic normocephalic neck is supple chest rise symmetrical breath sounds diminished bases heart: S1-S2 abdomen soft bowel sounds present extremities without cyanosis Assessment: 1. Sepsis s/p shock 2. Acute on chronic hypoxemic respiratory failure 3. Bilateral pneumonia 4. Nicole albicans UTI 5. Coronary artery disease with a history of mitral valve replacement Plan: Remains unchanged, continue present care, antibiotics, weaning trials per pulmonary Discussed with family Consultation Date/Type/Reason Admit Date/Time Nov 25, 2018 at 23:59 Initial Consult Date 11/26/18 Type of Consult id Requesting Provider: SHAUN CHRISTENSEN DO Date/Time of Note DATE: 12/05/18 TIME: 14:03 Exam/Review of Systems Exam Vitals Vital Signs Date Temp Pulse Resp B/P (MAP) Pulse Ox O2 O2 Flow FiO2 Time Delivery Rate 12/05/18 96 27 98 40 13:39 12/05/18 97.0 94/61 (72) Mechanical 08:00 Ventilator Intake and Output 12/04/18 12/04/18 12/05/18 1515:00 23:00 07:00 IntakeIntake Total 555.8 ml 708.12 ml 654.32 ml OutputOutput Total 315 ml 805 ml 425 ml BalanceBalance 240.8 ml -96.88 ml 229.32 ml Results Result Diagram: 12/05/18 0500 12/05/18 0500 Results 24hrs Laboratory Tests Test 12/04/18 17:05 12/04/18 20:36 12/05/18 00:28 12/05/18 04:58 Bedside Glucose 217 263 H 229 H 214 Test 12/05/18 05:00 12/05/18 09:00 12/05/18 13:15 White Blood Count 9.0 # Red Blood Count 2.93 L Hemoglobin 8.3 L Hematocrit 26.9 L Mean Corpuscular 91.8 Volume Mean Corpuscular 28.3 L Hemoglobin Mean Corpuscular 30.9 L Hemoglobin Concen t Red Cell 17.7 H Distribution Width Platelet Count 164 Mean Platelet 11.0 H Volume Immature 0.600 H Granulocytes % Neutrophils % 96.8 H Lymphocytes % 0.7 L Monocytes % 1.8 Eosinophils % 0.0 Basophils % 0.1 Nucleated Red 0.0 Blood Cells % Immature 0.050 H Granulocytes # Neutrophils # 8.7 H Lymphocytes # 0.1 L Monocytes # 0.2 L Eosinophils # 0.0 Basophils # 0.0 Nucleated Red 0.0 Blood Cells # Sodium Level 138 Potassium Level 4.2 Chloride Level 98 Carbon Dioxide 38 H Level Anion Gap 2 L Blood Urea 29 H Nitrogen Creatinine 0.30 L Est Glomerular Filtrat Rate mL/min Glucose Level 163 Calcium Level 6.7 L Phosphorus Level 2.7 Magnesium Level 2.0 Bedside Glucose 246 H Blood Gas Blood arterial Specimen Source Arterial Blood 12/05/2018 1:35:3 Date Drawn 3 PM Arterial Blood pH 7.384 (Temp corrected) Arterial Blood 68.5 H pCO2 (Temp correct) Arterial Blood 98.2 H pO2 (Temp corrected) Arterial Blood 40.0 H HCO3 Arterial Blood 12.6 H Base Excess Arterial Blood 96.4 Oxygen Saturation Jordi Test ACCEPTAB Arterial Blood Right Radial Gas Puncture Site Arterial 0.3 Blood Carboxyhemo globin Arterial Blood 0.3 Methemoglobin Blood Gas A-a O2 108.2 H Differential Oxyhemoglobin 95.8 Percent Blood Gas 37.0 Temperature Blood Gas Actual 29 Respiration Rate Blood Gas VENT - CPAP Modality FiO2 40.0 Blood Gas Low 5.0 PEEP Setting Blood Gas 10 Pressure Support Blood Gas TM Notified Whom Blood Gas 12/05/2018 1:47:3 Notified Time 3 PM Medications Medication Current Medications Ondansetron HCl (Zofran Inj) 4 mg Q6H PRN IV NAUSEA AND/OR VOMITING; Start 11/26/18 at 01:00 Albuterol (Ventolin Hfa) 4 puff Q4H RESP THERAPY INH Last administered on 12/05/18at 13:19; Admin Dose 4 PUFF; Start 11/26/18 at 01:00 Albuterol (Ventolin Hfa) 4 puff Q2H RESP THERAPY PRN INH SHORTNESS OF BREATH Last administered on 11/28/18at 01:53; Admin Dose 4 PUFF; Start 11/26/18 at 01:00 Methylprednisolone Sodium Succinate (Solu-Medrol) 60 mg Q6 IV Last administered on 12/05/18 11:46; Admin Dose 60 MG; Start 11/26/18 at 06:00 Acetaminophen (Tylenol Liquid) 650 mg Q6H PRN PO PAIN LEVEL 1-3 OR FEVER; Start 11/26/18 at 01:00 Morphine Sulfate (morphine) 2 mg Q4H PRN IV PAIN LEVEL 7-10; Start 11/26/18 at 01:00 Lorazepam (Ativan) 1 mg Q2H PRN IV ANXIETY; Start 11/26/18 at 01:00 Enoxaparin Sodium (Lovenox) 40 mg DAILY SC Last administered on 12/05/18 09:02; Admin Dose 40 MG; Start 11/26/18 at 09:00 Propofol 100 ml @ 1.32 mls/hr Q12H IV Last administered on 12/04/18 18:49; Admin Dose 5.28 MLS/HR; Start 11/26/18 at 03:00 Norepinephrine 250 ml @ 1.875 mls/ hr TITRATE IV Last administered on 11/26/18 10:46; Admin Dose 37.5 MLS/HR; Start 11/26/18 at 09:00 Insulin Aspart (Novolog Insulin Pen) NOVOLOG *MILD* ALGORI... Q4 SC Last administered on 12/05/18 09:03; Admin Dose 3 UNIT; Start 11/26/18 at 13:00 Phenylephrine HCl 40 mg/Dextrose 250 ml @ 37.5 mls/hr TITRATE IV Last admi nistered on 11/30/18 02:35; Admin Dose 3 MLS/HR; Start 11/26/18 at 11:00 Fentanyl 100 ml @ 2.5 mls/hr TITRATE IV Last administered on 12/04/18 20:48; Admin Dose 5 MLS/HR; Start 11/26/18 at 13:00 IV Flush (NS 10 ml) 10 ml PRN PRN IV IV PROTOCOL; Start 11/26/18 at 15:00 Lansoprazole (Prevacid) 30 mg DAILY@06 GTB Last administered on 12/05/18 05:45; Admin Dose 30 MG; Start 11/28/18 at 06:00 Fluconazole (Diflucan) 100 mg DAILY PO Last administered on 12/05/18 09:01; Admin Dose 100 MG; Start 11/27/18 at 15:00 Sodium Phosphate (Neutra-Phos) 250 mg BID GTB Last administered on 12/05/18 09:01; Admin Dose 250 MG; Start 11/28/18 at 09:00 Midodrine (Proamatine) 5 mg TID@,, GTB Last administered on 12/05/18 09:29; Admin Dose 5 MG; Start 11/29/18 at 09:00 Alendronate Sodium (Fosamax) 70 mg Mo@AC BREAKFAST PO ; Start 12/02/18 at 07:00 Cefepime HCl 50 ml @ 100 mls/hr Q12 IVPB Last administered on 12/05/18 09:01; Admin Dose 100 MLS/HR; Start 12/02/18 at 21:00 Furosemide (Lasix) 20 mg BID DIURETICS IV Last administered on 12/05/18 06:29; Admin Dose 20 MG; Start 12/03/18 at 08:00 Calcitriol (Rocaltrol) 0.25 mcg DAILY PO Last administered on 12/05/18 09:01; Admin Dose 0.25 MCG; Start 12/03/18 at 09:00 JODY BOYD NP Dec 05, 2018 14:04
[2018-12-05] MEDS ORDERED: DEXTROSE 50% 50 ML SYRINGE IV PRN (15:00)
[2018-12-05] MEDS ORDERED: GLUCAGON 1 MG INJ IM PRN (15:00)
[2018-12-05] MEDS ORDERED: INSULIN GLARGINE [LANTus] (100 UNITS/ML) SYG SC SCH (15:00)
[2018-12-05] MEDS ORDERED: GLUCOSE GEL 15 GRAM TUBE BUCCAL PRN (15:00)
[2018-12-05] MEDS: PROPOFOL 100 ML IV SCH (15:00)
[2018-12-05] MEDS ORDERED: GLUCOSE GEL 15 GRAM TUBE PO PRN ×2 (15:00)
[2018-12-05] MEDS: FENTAnyl (DRIP) 1000 mcg/100mL 100 ML IV SCH (18:48)
[2018-12-06] VITALS (48 sets, daily range): BP systolic 76–131; BP diastolic 44–75; PULSE 69–94; RESP 10–24
[2018-12-06] MEDS: METHYLPREDNISOLONE 125 MG INJ IV SCH ×5 (00:39→23:09)
[2018-12-06] MEDS: INSULIN ASPART [NOVOLOG] 3 ML PEN SC SCH ×6 (00:39→20:46)
[2018-12-06] MEDS: ALBUTEROL HFA 8 GM INHALER INH SCH ×6 (01:21→19:43)
[2018-12-06] MEDS: PROPOFOL 100 ML IV SCH (03:00)
[2018-12-06] MEDS: LANSOPRAZOLE 30 MG CAP GTB SCH (06:03)
[2018-12-06] MEDS: FUROSEMIDE 20 MG INJ IV SCH ×2 (06:03→17:55)
[2018-12-06] MEDS ORDERED: ACETAZOLAMIDE 500 MG INJ IV ONE (08:00)
[2018-12-06] MEDS: FLUCONAZOLE 100 MG TAB PO SCH (08:22)
[2018-12-06] MEDS: MIDODRINE 5 MG TAB GTB SCH ×3 (08:22→17:55)
[2018-12-06] MEDS: CALCITRIOL 0.25 MCG CAP PO SCH (08:22)
[2018-12-06] MEDS: CEFEPIME 1GM/50 ML (PMX) 50 ML IVPB SCH ×2 (08:23→20:41)
[2018-12-06] MEDS: BALSAM PERU/CASTOR OIL 60 GM TUBE TOP SCH ×2 (08:24→20:42)
[2018-12-06] MEDS: ENOXAPARIN 40 MG/0.4 ML SYG SC SCH (08:34)
--- NOTE | 2018-12-06 09:10 | PN ---
DATE: 12/06/2018 SUBJECTIVE: The patient remains on full ventilatory support. The patient is diuresing well. Has fa iled weaning trials. No other events noted. No hemoptysis, hematemesis, hematochezia. OBJECTIVE: VITAL SIGNS: Blood pressure is 106/61, respirations 10, pulse 81, temperature 98.6. HEENT: Head is normocephalic. NECK: Supple. HEART: Regular rate. LUNGS: Show diminished breath sounds at the base. ABDOMEN: Soft, nontender to palpation without rebound or guarding. EXTREMITIES: Negative for clubbing, cyanosis, positive edema. DERMATOLOGIC: No rashes. MUSCULOSKELETAL: No joint effusion. NEUROLOGIC: No change in exam. MEDICATIONS: Have been reviewed. LABORATORY DATA: Has been reviewed. ASSESSMENT AND PLAN: 1. Sepsis, status post shock. Etiology secondary to pneumonia and urinary tract infection. Patient currently is off pressors. Continue antibiotic therapy. Follow up with infectious disease. 2. Ventilator-dependent respiratory failure. Vent settings and ABG was reviewed. Continue to monit or. Continue weaning per pulmonary. 3. Volume overload. Continue diuretic therapy. We will adjust as needed. The patient may be devel oping alkalemia. 4. Alkalosis. Etiology may be multifactorial with component of a compensatory response, possible me tabolic due to diuretic therapy. Plan is to check an ABG. We will adjust diuretic therapy according ly. Will give the patient a dose of Diamox. 5. Anemia. Monitor hemoglobin and hematocrit levels. 6. Mineral bone disorder. Monitor calcium and phosphorus levels. 7. Nonoliguric acute kidney injury. Etiology is likely secondary to hemodynamics. Renal function i s improved. Continue to monitor. 8. Non-ST elevated myocardial infarction. Continue medical management. 9. History of coronary artery disease. Continue medical management. 10. History of arrhythmia, status post pacemaker. 11. Diabetes. The patient's glucose levels remain elevated. We will adjust Lantus. If unable to h ave adequate control with long-acting insulins, will consider insulin drip. 12. History of ovarian cancer stage IV, status post radiation and chemotherapy. Continue to monitor . 13. History of hypothyroidism. 14. Severe arthritis. 15. Pancytopenia, improved. 16. Gastrointestinal and deep vein thrombosis prophylaxis. Please note I spent over 30 minutes of critical care time with this patient. Dictated By: SHAUN MCCARTHY/SYBIL Conf#: [id number] DID#: [id number] CC: STEVIE REN MD;*[facility]*
--- NOTE | 2018-12-06 09:46 | CONS ---
Assessment/Plan Assessment/Plan Assessment/Plan (Daily) Ventilator setting; SIMV of 10, pressure support of 14, PEEP of 5, tidal volume 450, 40% FiO2. Assessment and recommendations; 1. Patient admitted with respiratory failure due to severe bilateral pneumonia with significant interval improvement. 2. Likely underlying severe COPD with persistent hypercapnia. 3. History of prior mitral valve replacement. 4. Diabetes. 5. Anemia and thrombocytopenia. Perform a CPAP trial. Obtain ABG 45 minutes into the trial to assess for possible weaning from ventilator. Prognosis guarded. Patient possibly may need to have a tracheostomy placed. Consultation Date/Type/Reason Admit Date/Time Nov 25, 2018 at 23:59 Initial Consult Date 11/26/18 Type of Consult Pulmonary/critical care Requesting Provider: SHAUN CHRISTENSEN DO Date/Time of Note DATE: 12/06/18 TIME: 09:43 24 HR Interval Summary Free Text/Dictation Patient's condition remains critical. Patient is completely awake and alert though. Has remained hemodynamically stable. General exam; elderly lady, orally intubated, awake and alert. Currently in no distress. Exam/Review of Systems Exam Vitals Vital Signs Date Temp Pulse Resp B/P (MAP) Pulse Ox O2 O2 Flow FiO2 Time Delivery Rate 12/06/18 85 19 99 40 09:15 12/06/18 106/61 06:00 (76) 12/06/18 98.8 Mechanical 04:00 Ventilator Intake and Output 12/05/18 12/05/18 12/06/18 1515:00 23:00 07:00 IntakeIntake Total 430 ml 320 ml 250 ml OutputOutput Total 1250 ml 425 ml 245 ml BalanceBalance -820 ml -105 ml 5 ml Exam HEENT exam; supple neck, no JVD. No lymphadenopathy. Midline trachea. No thyromegaly. Orogastric tube in place. Patient has fair dentition. No neck masses. Chest exam; diminished but clear breath sounds. S1-S2 audible, no murmurs. Regular rhythm. Abdomen exam; soft, no organomegaly. Bowel sounds are audible. Extremity exam; no peripheral edema or clubbing. [employer]W [employer] exam; no focal deficit. Results Result Diagram: 12/06/18 0430 12/06/18 0430 Results 24hrs Laboratory Tests Test 12/05/18 13:15 4/25/19 14:15 12/05/18 17:07 12/05/18 22:16 Blood Gas Blood arterial Specimen Source Arterial Blood 12/05/2018 1:35:3 Date Drawn 3 PM Arterial Blood pH 7.384 (Temp corrected) Arterial Blood 68.5 H pCO2 (Temp correct) Arterial Blood 98.2 H pO2 (Temp corrected) Arterial Blood 40.0 H HCO3 Arterial Blood 12.6 H Base Excess Arterial Blood 96.4 Oxygen Saturation Jordi Test ACCEPTAB Arterial Blood Right Radial Gas Puncture Site Arterial 0.3 Blood Carboxyhemo globin Arterial Blood 0.3 Methemoglobin Blood Gas A-a O2 108.2 H Differential Oxyhemoglobin 95.8 Percent Blood Gas 37.0 Temperature Blood Gas Actual 29 Respiration Rate Blood Gas VENT - CPAP Modality FiO2 40.0 Blood Gas Low 5.0 PEEP Setting Blood Gas 10 Pressure Support Blood Gas TM Notified Whom Blood Gas 12/05/2018 1:47:3 Notified Time 3 PM Bedside Glucose 147 124 134 Test 12/06/18 00:39 12/06/18 04:30 12/06/18 05:50 12/06/18 08:30 Bedside Glucose 138 199 145 White Blood Count 9.5 Red Blood Count 2.96 L Hemoglobin 8.4 L Hematocrit 27.2 L Mean Corpuscular 91.9 Volume Mean Corpuscular 28.4 L Hemoglobin Mean Corpuscular 30.9 L Hemoglobin Concen t Red Cell 17.4 H Distribution Width Platelet Count 147 Mean Platelet 10.4 Volume Immature 0.700 H Granulocytes % Neutrophils % 96.4 H Lymphocytes % 0.8 L Monocytes % 1.9 Eosinophils % 0.0 Basophils % 0.2 Nucleated Red 0.0 Blood Cells % Immature 0.070 H Granulocytes # Neutrophils # 9.1 H Lymphocytes # 0.1 L Monocytes # 0.2 L Eosinophils # 0.0 Basophils # 0.0 Nucleated Red 0.0 Blood Cells # Sodium Level 138 Potassium Level 4.1 Chloride Level 96 L Carbon Dioxide 42 *H Level Anion Gap 0 L Blood Urea 29 H Nitrogen Creatinine 0.32 L Est Glomerular Filtrat Rate mL/min Glucose Level 161 Calcium Level 6.7 L Phosphorus Level 2.6 Magnesium Level 2.1 Medications Medication Current Medications Ondansetron HCl (Zofran Inj) 4 mg Q6H PRN IV NAUSEA AND/OR VOMITING; Start 11/26/18 at 01:00 Albuterol (Ventolin Hfa) 4 puff Q4H RESP THERAPY INH Last administered on 12/06/18 09:15; Admin Dose 4 PUFF; Start 11/26/18 at 01:00 Albuterol (Ventolin Hfa) 4 puff Q2H RESP THERAPY PRN INH SHORTNESS OF BREATH Last administered on 11/28/18 01:53; Admin Dose 4 PUFF; Start 11/26/18 at 01:00 Methylprednisolone Sodium Succinate (Solu-Medrol) 60 mg Q6 IV Last administered on 12/06/18at 06:03; Admin Dose 60 MG; Start 11/26/18 at 06:00 Acetaminophen (Tylenol Liquid) 650 mg Q6H PRN PO PAIN LEVEL 1-3 OR FEVER; Start 11/26/18 at 01:00 Morphine Sulfate (morphine) 2 mg Q4H PRN IV PAIN LEVEL 7-10; Start 11/26/18 at 01:00 Lorazepam (Ativan) 1 mg Q2H PRN IV ANXIETY; Start 11/26/18 at 01:00 Enoxaparin Sodium (Lovenox) 40 mg DAILY SC Last administered on 12/06/18at 08:34; Admin Dose 40 MG; Start 11/26/18 at 09:00 Norepinephrine 250 ml @ 1.875 mls/ hr TITRATE IV Last administered on 11/26/18 at 10:46; Admin Dose 37.5 MLS/HR; Start 11/26/18 at 09:00 Insulin Aspart (Novolog Insulin Pen) NOVOLOG *MILD* ALGORI... Q4 SC Last administered on 12/06/18 08:34; Admin Dose 1 UNIT; Start 11/26/18 at 13:00 Phenylephrine HCl 40 mg/Dextrose 250 ml @ 37.5 mls/hr TITRATE IV Last administered on 11/30/18at 02:35; Admin Dose 3 MLS/HR; Start 11/26/18 at 11:00 Fentanyl 100 ml @ 2.5 mls/hr TITRATE IV Last administered on 12/05/18at 18:48; Admin Dose 5 MLS/HR; Start 11/26/18 at 13:00 IV Flush (NS 10 ml) 10 ml PRN PRN IV IV PROTOCOL; Start 11/26/18 at 15:00 Lansoprazole (Prevacid) 30 mg DAILY@06 GTB Last administered on 12/06/18at 06:03; Admin Dose 30 MG; Start 11/28/18 at 06:00 Fluconazole (Diflucan) 100 mg DAILY PO Last administered on 12/06/18at 08:22; Admin Dose 100 MG; Start 11/27/18 at 15:00 Midodrine (Proamatine) 5 mg TID@,13,17 GTB Last administered on 12/06/18at 08:22; Admin Dose 5 MG; Start 11/29/18 at 09:00 Alendronate Sodium (Fosamax) 70 mg Mo@AC BREAKFAST PO ; Start 12/02/18 at 07:00 Cefepime HCl 50 ml @ 100 mls/hr Q12 IVPB Last administered on 12/06/18at 08:23; Admin Dose 100 MLS/HR; Start 12/02/18 at 21:00 Furosemide (Lasix) 20 mg BID DIURETICS IV Last administered on 12/06/18at 06:03; Admin Dose 20 MG; Start 12/03/18 at 08:00 Miscellaneous Information 1 ea NOTE XX ; Start 12/05/18 at 15:00 Glucose (Glutose) 15 gm Q15M PRN PO DECREASED GLUCOSE; Start 12/05/18 at 15:00 Glucose (Glutose) 22.5 gm Q15M PRN PO DECREASED GLUCOSE; Start 12/05/18 at 15:00 Dextrose (D50w Syringe) 25 ml Q15M PRN IV DECREASED GLUCOSE; Start 12/05/18 at 15:00 Dextrose (D50w Syringe) 50 ml Q15M PRN IV DECREASED GLUCOSE; Start 12/05/18 at 15:00 Glucagon (Glucagen) 1 mg Q15M PRN IM DECREASED GLUCOSE; Start 12/05/18 at 15:00 Glucose (Glutose) 15 gm Q15M PRN BUCCAL DECREASED GLUCOSE; Start 12/05/18 at 15:00 Insulin Glargine (Lantus) 12 units DAILY@1500 SC ; Start 12/06/18 at 15:00 Calcitriol (Rocaltrol Liquid (Ped)) 0.25 mcg DAILY GTB ; Start 12/07/18 at 09:00 ENRIQUE WINKLER Dec 06, 2018 09:46
--- NOTE | 2018-12-06 14:01 | CONS ---
Assessment/Plan Assessment/Plan Hospital Course (Demo Recall) Awake, comfortable on vent, family at bedside Antimicrobials: Fluconazole, cefepime Microbiology: Urine cx + Nicole albicans, sputum culture grew Nicole albicans/E coli Indwelling: Endotracheal tube, NG tube, Das, right upper extremity PICC line Physical examination: This is a chronically ill-appearing wasted elderly woman who is intubated sedated in no distress. Head atraumatic normocephalic neck is supple chest rise symmetrical breath sounds diminished bases heart: S1-S2 abdome n soft bowel sounds present extremities without cyanosis Assessment: 1. Sepsis s/p shock 2. Acute on chronic hypoxemic respiratory failure 3. Bilateral pneumonia 4. Nicole albicans UTI 5. Coronary artery disease with a history of mitral valve replacement Plan: Remains unchanged, overall stable, continue present care, antibiotics, family considering tracheostomy Discussed with family Consultation Date/Type/Reason Admit Date/Time Nov 25, 2018 at 23:59 Initial Consult Date 11/26/18 Type of Consult id Requesting Provider: SHAUN CHRISTENSEN DO Date/Time of Note DATE: 12/06/18 TIME: 14:01 Exam/Review of Systems Exam Vitals Vital Signs Date Temp Pulse Resp B/P (MAP) Pulse Ox O2 O2 Flow FiO2 Time Delivery Rate 12/06/18 83 18 98 35 13:25 12/06/18 114/71 Mechanical 11:00 (85) Ventilator 12/06/18 98.4 08:00 Intake and Output 12/05/18 12/05/18 12/06/18 1515:00 23:00 07:00 IntakeIntake Total 430 ml 320 ml 250 ml OutputOutput Total 1250 ml 425 ml 245 ml BalanceBalance -820 ml -105 ml 5 ml Results Result Diagram: 12/06/18 0430 12/06/18 0430 Results 24hrs Laboratory Tests Test 12/05/18 14:15 12/05/18 17:07 12/05/18 22:16 12/06/18 00:39 Bedside Glucose 147 124 134 138 Test 12/06/18 04:30 12/06/18 05:50 12/06/18 08:30 12/06/18 12:00 White Blood Count 9.5 Red Blood Count 2.96 L Hemoglobin 8.4 L Hematocrit 27.2 L Mean Corpuscular 91.9 Volume Mean Corpuscular 28.4 L Hemoglobin Mean Corpuscular 30.9 L Hemoglobin Concen t Red Cell 17.4 H Distribution Width Platelet Count 147 Mean Platelet 10.4 Volume Immature 0.700 H Granulocytes % Neutrophils % 96.4 H Lymphocytes % 0.8 L Monocytes % 1.9 Eosinophils % 0.0 Basophils % 0.2 Nucleated Red 0.0 Blood Cells % Immature 0.070 H Granulocytes # Neutrophils # 9.1 H Lymphocytes # 0.1 L Monocytes # 0.2 L Eosinophils # 0.0 Basophils # 0.0 Nucleated Red 0.0 Blood Cells # Sodium Level 138 Potassium Level 4.1 Chloride Level 96 L Carbon Dioxide 42 *H Level Anion Gap 0 L Blood Urea 29 H Nitrogen Creatinine 0.32 L Est Glomerular Filtrat Rate mL/min Glucose Level 161 Calcium Level 6.7 L Phosphorus Level 2.6 Magnesium Level 2.1 Bedside Glucose 199 145 Blood Gas Blood arterial Specimen Source Arterial Blood 12/06/2018 12:10: Date Drawn 27 PM Arterial Blood pH 7.451 H (Temp corrected) Arterial Blood 62.8 H pCO2 (Temp correct) Arterial Blood 91.7 H pO2 (Temp corrected) Arterial Blood 42.8 *H HCO3 Arterial Blood 16.3 H Base Excess Arterial Blood 96.2 Oxygen Saturation Jordi Test ACCEPTAB Arterial Blood Right Radial Gas Puncture Site Arterial 0.3 Blood Carboxyhemo globin Arterial Blood 0.3 Methemoglobin Blood Gas A-a O2 121.3 H Differential Oxyhemoglobin 95.6 Percent Blood Gas 37.0 Temperature Blood Gas Actual 25 Respiration Rate Blood Gas VENT - CPAP Modality FiO2 40.0 Blood Gas Low 5.0 PEEP Setting Blood Gas 10 Pressure Support Blood Gas Megan ALLRDE RN Critical Value Read Back Blood Gas Naveed Notified Whom Blood Gas 12/06/2018 12:26: Notified Time 20 PM Test 12/06/18 12:38 Bedside Glucose 174 Medications Medication Current Medications Ondansetron HCl (Zofran Inj) 4 mg Q6H PRN IV NAUSEA AND/OR VOMITING; Start 11/26/18 at 01:00 Albuterol (Ventolin Hfa) 4 puff Q4H RESP THERAPY INH Last administered on 12/06/18at 13:25; Admin Dose 4 PUFF; Start 11/26/18 at 01:00 Albuterol (Ventolin Hfa) 4 puff Q2H RESP THERAPY PRN INH SHORTNESS OF BREATH Last administered on 11/28/18 01:53; Admin Dose 4 PUFF; Start 11/26/18 at 01:00 Methylprednisolone Sodium Succinate (Solu-Medrol) 60 mg Q6 IV Last administered on 12/06/18 12:38; Admin Dose 60 MG; Start 11/26/18 at 06:00 Acetaminophen (Tylenol Liquid) 650 mg Q6H PRN PO PAIN LEVEL 1-3 OR FEVER; Start 11/26/18 at 01:00 Morphine Sulfate (morphine) 2 mg Q4H PRN IV PAIN LEVEL 7-10; Start 11/26/18 at 01:00 Lorazepam (Ativan) 1 mg Q2H PRN IV ANXIETY; Start 11/26/18 at 01:00 Enoxaparin Sodium (Lovenox) 40 mg DAILY SC Last administered on 12/06/18 08:34; Admin Dose 40 MG; Start 11/26/18 at 09:00 Norepinephrine 250 ml @ 1.875 mls/ hr TITRATE IV Last administered on 11/26/18 10:46; Admin Dose 37.5 MLS/HR; Start 11/26/18 at 09:00 Insulin Aspart (Novolog Insulin Pen) NOVOLOG *MILD* ALGORI... Q4 SC Last administered on 12/06/18 12:49; Admin Dose 1 UNIT; Start 11/26/18 at 13:00 Phenylephrine HCl 40 mg/Dextrose 250 ml @ 37.5 mls/hr TITRATE IV Last administered on 11/30/18 02:35; Admin Dose 3 MLS/HR; Start 11/26/18 at 11:00 Fentanyl 100 ml @ 2.5 mls/hr TITRATE IV Last administered on 12/05/18 18:48; Admin Dose 5 MLS/HR; Start 11/26/18 at 13:00 IV Flush (NS 10 ml) 10 ml PRN PRN IV IV PROTOCOL; Start 11/26/18 at 15:00 Lansoprazole (Prevacid) 30 mg DAILY@06 GTB Last administered on 12/06/18 06:03; Admin Dose 30 MG; Start 11/28/18 at 06:00 Fluconazole (Diflucan) 100 mg DAILY PO Last administered on 12/06/18 08:22; Admin Dose 100 MG; Start 11/27/18 at 15:00 Midodrine (Proamatine) 5 mg TID@09,13,17 GTB Last administered on 12/06/18at 12:38; Admin Dose 5 MG; Start 11/29/18 at 09:00 Alendronate Sodium (Fosamax) 70 mg Mo@AC BREAKFAST PO ; Start 12/02/18 at 07:00 Cefepime HCl 50 ml @ 100 mls/hr Q12 IVPB Last administered on 12/06/18at 08:23; Admin Dose 100 MLS/HR; Start 12/02/18 at 21:00 Furosemide (Lasix) 20 mg BID DIURETICS IV Last administered on 12/06/18at 06:03; Admin Dose 20 MG; Start 12/03/18 at 08:00 Miscellaneous Information 1 ea NOTE XX ; Start 12/05/18 at 15:00 Glucose (Glutose) 15 gm Q15M PRN PO DECREASED GLUCOSE; Start 12/05/18 at 15:00 Glucose (Glutose) 22.5 gm Q15M PRN PO DECREASED GLUCOSE; Start 12/05/18 at 15:00 Dextrose (D50w Syringe) 25 ml Q15M PRN IV DECREASED GLUCOSE; Start 12/05/18 at 15:00 Dextrose (D50w Syringe) 50 ml Q15M PRN IV DECREASED GLUCOSE; Start 12/05/18 at 15:00 Glucagon (Glucagen) 1 mg Q15M PRN IM DECREASED GLUCOSE; Start 12/05/18 at 15:00 Glucose (Glutose) 15 gm Q15M PRN BUCCAL DECREASED GLUCOSE; Start 12/05/18 at 15:00 Insulin Glargine (Lantus) 12 units DAILY@1500 SC ; Start 12/06/18 at 15:00 Calcitriol (Rocaltrol Liquid (Ped)) 0.25 mcg DAILY GTB ; Start 12/07/18 at 09:00 JODY BOYD NP Dec 06, 2018 14:01
--- NOTE | 2018-12-06 16:15 | CONS ---
Consult Date/Type/Reason Admit Date/Time Nov 25, 2018 at 23:59 Initial Consult Date 11/26/18 Type of Consultation: cv Requesting Provider: SHAUN CHRISTENSEN DO Date/Time of Note DATE: 12/06/18 TIME: 16:13 Subjective Interventional cardiology follow-up progress note Subjective: Case discussed with staff and telemetry was reviewed. Patient remains in sinus rhythm with ventricular pacing. HR is STABLE now d/w physicians pt denies any chest pain or pressure She is not hypotensive and is off Maikol-Synephrine drip. Patient has failed weaning again Objective: General: Elderly female cachectic looking appears to be older than stated age status post intubation on the vent HEENT: NC/AT. pupils are equal. round. NECK: NO JVD. no stridor. CV: RRR. systolic murmur; no gallop or rubs. PULM: no wheezing + rhonchi more on the right GI: SOFT, NT, ND, no rebound or guarding Extremity: 1+ B/L ANKLE edema. no clubbing. neuro: awake and follows command Psych: calm rectal: deferred : normal Chest x-ray 12/06/18 shows Overall, no significant change in appearance of multifocal bilateral pulmonary opacities and small pleural effusions Echocardiogram was personally reviewed which showed normal LV size ejection fraction of about 45-50% EKG was personally reviewed which shows ventricular paced rhythm CT Chest 11/27: 1. Findings compatible with bilateral bronchiolitis and bronchopneumonia, greater on the right, significantly increased when compared to the prior CT. Mild bilateral pleural effusions, grossly stable. 2. Stable mild cardiomegaly. Coronary arterial and aortic atherosclerotic calcifications. 3. Lines and tubes in place, as above. 4. No evidence of mass or lymphadenopath Objective Vitals Vital Signs Date Temp Pulse Resp B/P (MAP) Pulse Ox O2 O2 Flow FiO2 Time Delivery Rate 12/06/18 84 23 98 35 15:12 12/06/18 114/71 Mechanical 11:00 (85) Ventilator 12/06/18 98.4 08:00 Intake and Output 12/05/18 12/05/18 12/06/18 1515:00 23:00 07:00 IntakeIntake Total 430 ml 320 ml 250 ml OutputOutput Total 1250 ml 425 ml 245 ml BalanceBalance -820 ml -105 ml 5 ml Results/Medications Result Diagram: 12/06/18 0430 12/06/18 0430 Results 24 hrs Laboratory Tests Test 12/05/18 17:07 12/05/18 22:16 12/06/18 00:39 12/06/18 04:30 Bedside Glucose 124 134 138 White Blood Count 9.5 Red Blood Count 2.96 L Hemoglobin 8.4 L Hematocrit 27.2 L Mean Corpuscular 91.9 Volume Mean Corpuscular 28.4 L Hemoglobin Mean Corpuscular 30.9 L Hemoglobin Concen t Red Cell 17.4 H Distribution Width Platelet Count 147 Mean Platelet 10.4 Volume Immature 0.700 H Granulocytes % Neutrophils % 96.4 H Lymphocytes % 0.8 L Monocytes % 1.9 Eosinophils % 0.0 Basophils % 0.2 Nucleated Red 0.0 Blood Cells % Immature 0.070 H Granulocytes # Neutrophils # 9.1 H Lymphocytes # 0.1 L Monocytes # 0.2 L Eosinophils # 0.0 Basophils # 0.0 Nucleated Red 0.0 Blood Cells # Sodium Level 138 Potassium Level 4.1 Chloride Level 96 L Carbon Dioxide 42 *H Level Anion Gap 0 L Blood Urea 29 H Nitrogen Creatinine 0.32 L Est Glomerular Filtrat Rate mL/min Glucose Level 161 Calcium Level 6.7 L Phosphorus Level 2.6 Magnesium Level 2.1 Test 12/06/18 05:50 12/06/18 08:30 12/06/18 12:00 12/06/18 12:38 Bedside Glucose 199 145 174 Blood Gas Blood arterial Specimen Source Arterial Blood 12/06/2018 12:10: Date Drawn 27 PM Arterial Blood pH 7.451 H (Temp corrected) Arterial Blood 62.8 H pCO2 (Temp correct) Arterial Blood 91.7 H pO2 (Temp corrected) Arterial Blood 42.8 *H HCO3 Arterial Blood 16.3 H Base Excess Arterial Blood 96.2 Oxygen Saturation Jordi Test ACCEPTAB Arterial Blood Right Radial Gas Puncture Site Arterial 0.3 Blood Carboxyhemo globin Arterial Blood 0.3 Methemoglobin Blood Gas A-a O2 121.3 H Differential Oxyhemoglobin 95.6 Percent Blood Gas 37.0 Temperature Blood Gas Actual 25 Respiration Rate Blood Gas VENT - CPAP Modality FiO2 40.0 Blood Gas Low 5.0 PEEP Setting Blood Gas 10 Pressure Support Blood Gas Megan ALLRED RN Critical Value Read Back Blood Gas Naveed Notified Whom Blood Gas 12/06/2018 12:26: Notified Time 20 PM Home Meds Reported Medications Acetaminophen* (Tylenol*) 325 Mg Tablet, 650 MG PO Q6H PRN for PAIN AND OR ELEVATED TEMP, TAB 11/30/18 Magnesium Oxide* (Mag-Oxide*) 400 Mg Tablet, 400 MG PO BID, TAB 11/30/18 Levothyroxine Sodium* (Synthroid*) 50 Mcg Tablet, 50 MCG PO BEFORE BREAKFAST, #30 TAB 11/30/18 Potassium Chloride* (Potassium Chloride*) 8 Meq Capsule.er, 10 MEQ PO BID, CAP 11/30/18 Furosemide* (Furosemide*) 40 Mg Tablet, 40 MG PO DAILY, TAB 11/30/18 Cyanocobalamin (B12 Health Booster) 1,000 Mcg/15 Ml Oral.susp, 5000 MCG PO DAILY 11/30/18 Atorvastatin Calcium (Atorvastatin Calcium) 10 Mg Tablet, 10 MG PO QHS, #30 TAB 11/30/18 Aspirin* (Devon Aspirin* Chew) 81 Mg Tab.chew, 81 MG PO BID, TAB.CHEW 11/30/18 Acetazolamide* (Acetazolamide*) 250 Mg Tablet, 250 MG PO DAILY, #60 TAB 11/30/18 Alendronate Sodium* (Fosamax*) 70 Mg Tablet, 70 MG PO Q7D, #4 TAB 11/30/18 Medications Current Medications Ondansetron HCl (Zofran Inj) 4 mg Q6H PRN IV NAUSEA AND/OR VOMITING; Start 11/26/18 at 01:00 Albuterol (Ventolin Hfa) 4 puff Q4H RESP THERAPY INH Last administered on 12/06/18at 13:25; Admin Dose 4 PUFF; Start 11/26/18 at 01:00 Albuterol (Ventolin Hfa) 4 puff Q2H RESP THERAPY PRN INH SHORTNESS OF BREATH Last administered on 11/28/18at 01:53; Admin Dose 4 PUFF; Start 11/26/18 at 01:00 Methylprednisolone Sodium Succinate (Solu-Medrol) 60 mg Q6 IV Last administered on 12/06/18at 12:38; Admin Dose 60 MG; Start 11/26/18 at 06:00 Acetaminophen (Tylenol Liquid) 650 mg Q6H PRN PO PAIN LEVEL 1-3 OR FEVER; Start 11/26/18 at 01:00 Morphine Sulfate (morphine) 2 mg Q4H PRN IV PAIN LEVEL 7-10; Start 11/26/18 at 01:00 Lorazepam (Ativan) 1 mg Q2H PRN IV ANXIETY; Start 11/26/18 at 01:00 Enoxaparin Sodium (Lovenox) 40 mg DAILY SC Last administered on 12/06/18 08:34; Admin Dose 40 MG; Start 11/26/18 at 09:00 Norepinephrine 250 ml @ 1.875 mls/ hr TITRATE IV Last administered on 11/26/18 10:46; Admin Dose 37.5 MLS/HR; Start 11/26/18 at 09:00 Insulin Aspart (Novolog Insulin Pen) NOVOLOG *MILD* ALGORI... Q4 SC Last administered on 12/06/18 12:49; Admin Dose 1 UNIT; Start 11/26/18 at 13:00 Phenylephrine HCl 40 mg/Dextrose 250 ml @ 37.5 mls/hr TITRATE IV Last administ ered on 11/30/18 02:35; Admin Dose 3 MLS/HR; Start 11/26/18 at 11:00 Fentanyl 100 ml @ 2.5 mls/hr TITRATE IV Last administered on 12/05/18 18:48; Admin Dose 5 MLS/HR; Start 11/26/18 at 13:00 IV Flush (NS 10 ml) 10 ml PRN PRN IV IV PROTOCOL; Start 11/26/18 at 15:00 Lansoprazole (Prevacid) 30 mg DAILY@06 GTB Last administered on 12/06/18 06:03; Admin Dose 30 MG; Start 11/28/18 at 06:00 Fluconazole (Diflucan) 100 mg DAILY PO Last administered on 12/06/18 08:22; Admin Dose 100 MG; Start 11/27/18 at 15:00 Midodrine (Proamatine) 5 mg TID@,,17 GTB Last administered on 12/06/18 12:38; Admin Dose 5 MG; Start 11/29/18 at 09:00 Alendronate Sodium (Fosamax) 70 mg Mo@AC BREAKFAST PO ; Start 12/02/18 at 07:00 Cefepime HCl 50 ml @ 100 mls/hr Q12 IVPB Last administered on 4/26/19at 08:23; Admin Dose 100 MLS/HR; Start 12/02/18 at 21:00 Furosemide (Lasix) 20 mg BID DIURETICS IV Last administered on 12/06/18at 06:03; Admin Dose 20 MG; Start 12/03/18 at 08:00 Miscellaneous Information 1 ea NOTE XX ; Start 12/05/18 at 15:00 Glucose (Glutose) 15 gm Q15M PRN PO DECREASED GLUCOSE; Start 12/05/18 at 15:00 Glucose (Glutose) 22.5 gm Q15M PRN PO DECREASED GLUCOSE; Start 12/05/18 at 15:00 Dextrose (D50w Syringe) 25 ml Q15M PRN IV DECREASED GLUCOSE; Start 12/05/18 at 15:00 Dextrose (D50w Syringe) 50 ml Q15M PRN IV DECREASED GLUCOSE; Start 12/05/18 at 15:00 Glucagon (Glucagen) 1 mg Q15M PRN IM DECREASED GLUCOSE; Start 12/05/18 at 15:00 Glucose (Glutose) 15 gm Q15M PRN BUCCAL DECREASED GLUCOSE; Start 12/05/18 at 15:00 Insulin Glargine (Lantus) 12 units DAILY@1500 SC ; Start 12/06/18 at 15:00 Calcitriol (Rocaltrol Liquid (Ped)) 0.25 mcg DAILY GTB ; Start 12/07/18 at 09:00 Assessment/Plan Hospital Course (Demo Recall) Acute on chronic hypoxemic/hypercapnic respiratory failure status post intubation currently on the ventilator Shock: Appears to be septic Pneumonia Pleural effusion History of mitral valve replacement currently functioning normally History of most likely heart block status post permanent pacemaker ([employer]) Encephalopathy Cachexia and malnutrition History of rheumatoid arthritis History of ovarian cancer stage IV Thyroid disorder Acute renal failure Diabetes anemia Recommendations: Vent support to be continued to be managed as per pulmonary. weaning as tolerated. Antibiotic management as per internal medicine pulmonary and infectious disease consultants BP is stable now off pressors REPLACE Lytes prn . Diabetic management as per internal medicine GI and DVT prophylaxis lasix as per pulm Continue with ICU care NAYLA SAUL MD [facility] NAYLA SAUL MD Dec 06, 2018 16:15
[2018-12-06] MEDS: INSULIN GLARGINE [LANTus] (100 UNITS/ML) SYG SC SCH (17:55)
[2018-12-06] MEDS: NORepinephrine 8MG/250 ML (PMX 250 ML IV SCH (23:16)
[2018-12-07] VITALS (91 sets, daily range): BP systolic 71–135; BP diastolic 45–82; PULSE 61–97; RESP 11–30
[2018-12-07] MEDS: ALBUTEROL HFA 8 GM INHALER INH SCH ×6 (00:54→21:23)
[2018-12-07] MEDS: INSULIN ASPART [NOVOLOG] 3 ML PEN SC SCH ×6 (01:44→20:36)
[2018-12-07] MEDS: FENTAnyl (DRIP) 1000 mcg/100mL 100 ML IV SCH ×2 (03:21→22:03)
[2018-12-07] MEDS: METHYLPREDNISOLONE 125 MG INJ IV SCH ×3 (05:38→18:05)
[2018-12-07] MEDS: LANSOPRAZOLE 30 MG CAP GTB SCH (05:38)
[2018-12-07] MEDS: FUROSEMIDE 20 MG INJ IV SCH (05:39)
[2018-12-07] MEDS ORDERED: MAGNESIUM SULFATE 2 GM/50 ML 50 ML IVPB ONE (08:00)
[2018-12-07] MEDS ORDERED: POTASSIUM CHLORIDE 20 MEQ POWDER FOR ORAL SOLN GTB ONE (08:00)
--- NOTE | 2018-12-07 08:51 | PN ---
DATE: 12/07/2018 SUBJECTIVE: The patient overnight was placed on pressor support due to hypertension. No other acute events noted. No hemoptysis, hematemesis, hematochezia. OBJECTIVE: VITAL SIGNS: Blood pressure is 98/64, respiration 18, pulse 93, temperature 98.6. HEENT: Head is normocephalic. NECK: Supple. HEART: Regular rate. LUNGS: Show diminished breath sounds at the base. ABDOMEN: Soft, nontender to palpation without rebound or guarding. EXTREMITIES: Negative for clubbing, cyanosis. Positive edema. DERMATOLOGIC: No rashes. MUSCULOSKELETAL: No joint effusions. NEUROLOGIC: No change in exam. MEDICATIONS: Reviewed. LABORATORY DATA: Shows sodium 139, potassium 3.0, bicarbonate 40, BUN 29, creatinine 0.39, magnesium 1.6. White count 9.0, hemoglobin 9.2, platelet count is 176. Patient's ABG was reviewed. Imaging studies were reviewed. ASSESSMENT AND PLAN: 1. Sepsis. Etiology is secondary to pneumonia bacteremia. The patient has been placed back on pres sor support. This may be secondary to hemodynamics. Plan is to hold diuretic therapy. We will incr ease midodrine. Continue antibiotic therapy and monitor. 2. Ventilator dependent respiratory failure. Vent settings and ABG was reviewed. Continue to monit or. Continue weaning per pulmonary. 3. Volume overload. The patient is on diuretic therapy. We will hold in the setting of shock. Mon itor closely. 4. Metabolic alkalemia. Etiology is secondary to diuretic therapy, hypokalemia. Plan is to give Di amox intermittently. Will replete potassium chloride. Monitor closely. 5. Anemia. Monitor hemoglobin and hematocrit levels. 6. Mineral bone disorder, monitor calcium and phosphorus levels. 7. Dysphagia. Continue tube feeding. 8. Nonoliguric acute kidney injury. Etiology is secondary to hemodynamics. Renal function is impro mary ann. Continue to monitor. 9. Non-ST elevated myocardial infarction. Continue medical management. 10. History of coronary artery disease. Continue current treatment plan. 11. History of arrhythmia, status post pacemaker. 12. Diabetes. Glucose levels have improved. Continue current insulin regimen. 13. History of ovarian cancer stage IV, status post radiation chemotherapy. Continue to monitor. 14. History of hypothyroidism. 15. History of arthritis. 16. Gastrointestinal and deep vein thrombosis prophylaxis. 17. Hypokalemia and hypomagnesemia. We will replete. Dictated By: SHAUN MCCARTHY/SYBIL Conf#: [id number] DID#: [id number] CC: JESS SAUCEDO MD; STEVIE REN MD;*End*
[2018-12-07] MEDS: CEFEPIME 1GM/50 ML (PMX) 50 ML IVPB SCH ×2 (09:16→20:30)
[2018-12-07] MEDS: FLUCONAZOLE 100 MG TAB PO SCH (09:19)
[2018-12-07] MEDS: MIDODRINE 5 MG TAB GTB SCH ×3 (09:19→18:05)
[2018-12-07] MEDS: CALCITRIOL (1 MCG/ML PO SYG) GTB SCH (09:20)
[2018-12-07] MEDS: ENOXAPARIN 40 MG/0.4 ML SYG SC SCH (09:33)
[2018-12-07] MEDS: BALSAM PERU/CASTOR OIL 60 GM TUBE TOP SCH ×2 (09:38→20:31)
--- NOTE | 2018-12-07 09:50 | CONS ---
Assessment/Plan Assessment/Plan Hospital Course (Demo Recall) ID PROGRESS NOTE CURRENT ABX: DAY # => Cefepime + Diflucan s/p Clinda HPI/HOSPITAL COURSE/24H INTERVAL SUMMARY * Alert, awake, responsive, wants to eat soup, Fentanyl GTT onboard, calm * No fevers, WBC up slightly @ 11,000 today * Son in room says she is doing very well, he is pleased with her status and nursing/provider staff care * Indwelling: Endotracheal tube, NG tube, Das, right upper extremity PICC line DIAGNOSTIC IMAGING * 12/05/18 CXR: Overall, no significant change in appearance of multifocal bilateral pulmonary opacities and small pleural effusions. . MICRO/OTHER * 11/26/18: Resp cx: RESPIRATORY CULTURE Final Organism 1 NICOLE ALBICANS QUANTITY SCANT GROWTH Organism 2 ESCHERICHIA COLI QUANTITY RARE E COLI M.I.C. RX --------- --- AMPICILLIN >=32 R CEFAZOLIN R CEFOTAXIME S CIPROFLOXACIN <=0.25 S GENTAMICIN <=1 S LEVOFLOXACIN 0.5 S TOBRAMYCIN <=1 S TRIMETHOPRIM/SULFAMETHOXAZOLE >=320 R * 11/26 & Urine Cx: (+)Nicole PHYSICAL EXAMINATION: GENERAL: A/A/ responsive, VSS, NAD, mildly sedated, orally intubated on the Vent watching TV HEENT: AT, NC, anicteric - ETT secure to patient and Vent NECK: Supple CHEST: Equal chest rise bilaterally==> Vented HEART: RRR ABDOMEN: Soft EXTREMITIES: Warm, dry, PICC SKIN: No rash, no diaphoresis, ID ASSESSMENT 83 yo F admit with: 1. Sepsis s/p shock 2. Acute on chronic hypoxemic respiratory failure 3. Bilateral pneumonia 4. Nicole albicans UTI 5. Coronary artery disease with a history of mitral valve replacement (-)MRSA Nares ABX ALLERGIES: KNDA INVASIVES: CURRENT ABX: DAY # Cefepime + Diflucan ID RECOMMENDATIONS/PLAN: 1. Continue current ABX over the weekend 2. Per notes possible Trach/Peg . Consultation Date/Type/Reason Admit Date/Time Nov 25, 2018 at 23:59 Initial Consult Date 11/26/18 Requesting Provider: SHAUN CHRISTENSEN DO Date/Time of Note DATE: 12/07/18 TIME: 09:50 Exam/Review of Systems Exam Vitals Vital Signs Date Temp Pulse Resp B/P (MAP) Pulse Ox O2 O2 Flow FiO2 Time Delivery Rate 12/07/18 98.2 85 25 101/61 98 Mechanical 08:00 (74) Ventilator 12/07/18 30 04:46 Intake and Output 12/06/18 12/06/18 12/07/18 1515:00 23:00 07:00 IntakeIntake Total 516.75 ml 830 ml 638.750 ml OutputOutput Total 705 ml 1100 ml 375 ml BalanceBalance -188.25 ml -270 ml 263.750 ml Results Result Diagram: 12/07/18 0515 12/07/18 0515 Results 24hrs Laboratory Tests Test 12/06/18 12:00 12/06/18 12:38 12/06/18 17:53 12/06/18 20:41 Blood Gas Blood arterial Specimen Source Arterial Blood 12/06/2018 12:10: Date Drawn 27 PM Arterial Blood pH 7.451 H (Temp corrected) Arterial Blood 62.8 H pCO2 (Temp correct) Arterial Blood 91.7 H pO2 (Temp corrected) Arterial Blood 42.8 *H HCO3 Arterial Blood 16.3 H Base Excess Arterial Blood 96.2 Oxygen Saturation Jordi Test ACCEPTAB Arterial Blood Right Radial Gas Puncture Site Arterial 0.3 Blood Carboxyhemo globin Arterial Blood 0.3 Methemoglobin Blood Gas A-a O2 121.3 H Differential Oxyhemoglobin 95.6 Percent Blood Gas 37.0 Temperature Blood Gas Actual 25 Respiration Rate Blood Gas VENT - CPAP Modality FiO2 40.0 Blood Gas Low 5.0 PEEP Setting Blood Gas 10 Pressure Support Blood Gas Megan ALLRED RN Critical Value Read Back Blood Gas Naveed Notified Whom Blood Gas 12/06/2018 12:26: Notified Time 20 PM Bedside Glucose 174 195 235 H Test 12/07/18 01:38 12/07/18 05:15 12/07/18 05:38 12/07/18 09:30 Bedside Glucose 188 114 151 White Blood Count 11.0 H Red Blood Count 3.23 L Hemoglobin 9.2 L Hematocrit 29.3 L Mean Corpuscular 90.7 Volume Mean Corpuscular 28.5 L Hemoglobin Mean Corpuscular 31.4 L Hemoglobin Concen t Red Cell 17.7 H Distribution Width Platelet Count 176 Mean Platelet 11.1 H Volume Immature 0.900 H Granulocytes % Neutrophils % 94.5 H Lymphocytes % 0.9 L Monocytes % 3.5 Eosinophils % 0.0 Basophils % 0.2 Nucleated Red 0.0 Blood Cells % Immature 0.100 H Granulocytes # Neutrophils # 10.4 H Lymphocytes # 0.1 L Monocytes # 0.4 Eosinophils # 0.0 Basophils # 0.0 Nucleated Red 0.0 Blood Cells # Sodium Level 139 Potassium Level 3.0 L Chloride Level 96 L Carbon Dioxide 40 H Level Anion Gap 3 L Blood Urea 29 H Nitrogen Creatinine 0.39 L Est Glomerular Filtrat Rate mL/min Glucose Level 94 # Calcium Level 7.2 L Phosphorus Level 1.7 L Magnesium Level 2.1 Medications Medication Current Medications Ondansetron HCl (Zofran Inj) 4 mg Q6H PRN IV NAUSEA AND/OR VOMITING; Start 11/26/18 at 01:00 Albuterol (Ventolin Hfa) 4 puff Q4H RESP THERAPY INH Last administered on 12/07/18at 09:39; Admin Dose 4 PUFF; Start 11/26/18 at 01:00 Albuterol (Ventolin Hfa) 4 puff Q2H RESP THERAPY PRN INH SHORTNESS OF BREATH Last administered on 11/28/18at 01:53; Admin Dose 4 PUFF; Start 11/26/18 at 01:00 Methylprednisolone Sodium Succinate (Solu-Medrol) 60 mg Q6 IV Last administered on 12/07/18at 05:38; Admin Dose 60 MG; Start 11/26/18 at 06:00 Acetaminophen (Tylenol Liquid) 650 mg Q6H PRN PO PAIN LEVEL 1-3 OR FEVER; Start 11/26/18 at 01:00 Morphine Sulfate (morphine) 2 mg Q4H PRN IV PAIN LEVEL 7-10; Start 11/26/18 at 01:00 Lorazepam (Ativan) 1 mg Q2H PRN IV ANXIETY; Start 11/26/18 at 01:00 Enoxaparin Sodium (Lovenox) 40 mg DAILY SC Last administered on 12/07/18at 09:33; Admin Dose 40 MG; Start 11/26/18 at 09:00 Norepinephrine 250 ml @ 1.875 mls/ hr TITRATE IV Last administered on 12/06/18a t 23:16; Admin Dose 9.375 MLS/HR; Start 11/26/18 at 09:00 Insulin Aspart (Novolog Insulin Pen) NOVOLOG *MILD* ALGORI... Q4 SC Last administered on 12/07/18at 09:34; Admin Dose 1 UNIT; Start 11/26/18 at 13:00 Phenylephrine HCl 40 mg/Dextrose 250 ml @ 37.5 mls/hr TITRATE IV Last administered on 11/30/18at 02:35; Admin Dose 3 MLS/HR; Start 11/26/18 at 11:00 Fentanyl 100 ml @ 2.5 mls/hr TITRATE IV Last administered on 12/07/18at 03:21; Admin Dose 5 MLS/HR; Start 11/26/18 at 13:00 IV Flush (NS 10 ml) 10 ml PRN PRN IV IV PROTOCOL; Start 11/26/18 at 15:00 Lansoprazole (Prevacid) 30 mg DAILY@06 GTB Last administered on 12/07/18at 05:38; Admin Dose 30 MG; Start 11/28/18 at 06:00 Fluconazole (Diflucan) 100 mg DAILY PO Last administered on 12/07/18at 09:19; Admin Dose 100 MG; Start 11/27/18 at 15:00 Alendronate Sodium (Fosamax) 70 mg Mo@AC BREAKFAST PO ; Start 12/02/18 at 07:00 Cefepime HCl 50 ml @ 100 mls/hr Q12 IVPB Last administered on 12/07/18at 09:16; Admin Dose 100 MLS/HR; Start 12/02/18 at 21:00 Furosemide (Lasix) 20 mg BID DIURETICS IV Last administered on 12/07/18at 05:39; Admin Dose 20 MG; Start 12/03/18 at 08:00; Status Hold Miscellaneous Information 1 ea NOTE XX ; Start 12/05/18 at 15:00 Glucose (Glutose) 15 gm Q15M PRN PO DECREASED GLUCOSE; Start 12/05/18 at 15:00 Glucose (Glutose) 22.5 gm Q15M PRN PO DECREASED GLUCOSE; Start 12/05/18 at 15:00 Dextrose (D50w Syringe) 25 ml Q15M PRN IV DECREASED GLUCOSE; Start 12/05/18 at 15:00 Dextrose (D50w Syringe) 50 ml Q15M PRN IV DECREASED GLUCOSE; Start 12/05/18 at 15:00 Glucagon (Glucagen) 1 mg Q15M PRN IM DECREASED GLUCOSE; Start 12/05/18 at 15:00 Glucose (Glutose) 15 gm Q15M PRN BUCCAL DECREASED GLUCOSE; Start 12/05/18 at 15:00 Insulin Glargine (Lantus) 12 units DAILY@1500 SC Last administered on 12/06/18at 17:55; Admin Dose 12 UNITS; Start 12/06/18 at 15:00 Calcitriol (Rocaltrol Liquid (Ped)) 0.25 mcg DAILY GTB Last administered on 12/07/18at 09:20; Admin Dose 0.25 MCG; Start 12/07/18 at 09:00 Midodrine (Proamatine) 10 mg TID@,13,17 GTB Last administered on 12/07/18at 09:19; Admin Dose 10 MG; Start 12/07/18 at 09:00 Magnesium Sulfate 50 ml @ 25 mls/hr ONCE ONCE IVPB ; Start 12/07/18 at 08:00; Stop 12/07/18 at 09:59 WILFREDO ANDRADE NP Dec 07, 2018 09:50
--- NOTE | 2018-12-07 14:15 | CONS ---
Consult Date/Type/Reason Admit Date/Time Nov 25, 2018 at 23:59 Initial Consult Date 11/26/18 Type of Consultation: Pulm/CCM Requesting Provider: SHAUN CHRISTENSEN DO Date/Time of Note DATE: 12/07/18 TIME: 14:10 Subjective No events. Failed CPAP yesterday. Alert on the vent. Objective Vitals Vital Signs Date Temp Pulse Resp B/P (MAP) Pulse Ox O2 O2 Flow FiO2 Time Delivery Rate 12/07/18 80 12:00 12/07/18 23 109/72 96 10:30 (84) 12/07/18 Mechanical 10:00 Ventilator 12/07/18 35 08:00 12/07/18 98.2 08:00 Intake and Output 12/06/18 12/06/18 12/07/18 1414:59 22:59 06:59 IntakeIntake Total 511.75 ml 770 ml 643.750 ml OutputOutput Total 705 ml 1025 ml 450 ml BalanceBalance -193.25 ml -255 ml 193.750 ml Exam HEENT: Neck supple; no JVD; no LAD; + ET tube CVS: RRR, S1 and S2 CHEST: Coarse BS b/l ABD: Soft, NT, + BS EXT: No c/c/e Results/Medications Result Diagram: 12/07/1815 12/07/1815 Results 24 hrs Laboratory Tests Test 12/06/18 17:53 12/06/18 20:41 12/07/18 01:38 12/07/18 05:15 Bedside Glucose 195 235 H 188 White Blood Count 11.0 H Red Blood Count 3.23 L Hemoglobin 9.2 L Hematocrit 29.3 L Mean Corpuscular 90.7 Volume Mean Corpuscular 28.5 L Hemoglobin Mean Corpuscular 31.4 L Hemoglobin Concent Red Cell 17.7 H Distribution Width Platelet Count 176 Mean Platelet Volume 11.1 H Immature 0.900 H Granulocytes % Neutrophils % 94.5 H Lymphocytes % 0.9 L Monocytes % 3.5 Eosinophils % 0.0 Basophils % 0.2 Nucleated Red Blood 0.0 Cells % Immature 0.100 H Granulocytes # Neutrophils # 10.4 H Lymphocytes # 0.1 L Monocytes # 0.4 Eosinophils # 0.0 Basophils # 0.0 Nucleated Red Blood 0.0 Cells # Sodium Level 139 Potassium Level 3.0 L Chloride Level 96 L Carbon Dioxide Level 40 H Anion Gap 3 L Blood Urea Nitrogen 29 H Creatinine 0.39 L Est Glomerular Filtrat Rate mL/min Glucose Level 94 # Calcium Level 7.2 L Phosphorus Level 1.7 L Magnesium Level 2.1 Test 12/07/18 05:38 12/07/18 09:30 Bedside Glucose 114 151 Home Meds Reported Medications Acetaminophen* (Tylenol*) 325 Mg Tablet, 650 MG PO Q6H PRN for PAIN AND OR ELEVATED TEMP, TAB 11/30/18 Magnesium Oxide* (Mag-Oxide*) 400 Mg Tablet, 400 MG PO BID, TAB 11/30/18 Levothyroxine Sodium* (Synthroid*) 50 Mcg Tablet, 50 MCG PO BEFORE BREAKFAST, #30 TAB 11/30/18 Potassium Chloride* (Potassium Chloride*) 8 Meq Capsule.er, 10 MEQ PO BID, CAP 11/30/18 Furosemide* (Furosemide*) 40 Mg Tablet, 40 MG PO DAILY, TAB 11/30/18 Cyanocobalamin (B12 Health Booster) 1,000 Mcg/15 Ml Oral.susp, 5000 MCG PO DAILY 11/30/18 Atorvastatin Calcium (Atorvastatin Calcium) 10 Mg Tablet, 10 MG PO QHS, #30 TAB 11/30/18 Aspirin* (Devon Aspirin* Chew) 81 Mg Tab.chew, 81 MG PO BID, TAB.CHEW 11/30/18 Acetazolamide* (Acetazolamide*) 250 Mg Tablet, 250 MG PO DAILY, #60 TAB 11/30/18 Alendronate Sodium* (Fosamax*) 70 Mg Tablet, 70 MG PO Q7D, #4 TAB 11/30/18 Medications Current Medications Ondansetron HCl (Zofran Inj) 4 mg Q6H PRN IV NAUSEA AND/OR VOMITING; Start 11/26/18 at 01:00 Albuterol (Ventolin Hfa) 4 puff Q4H RESP THERAPY INH Last administered on 12/07/18at 13:43; Admin Dose 4 PUFF; Start 11/26/18 at 01:00 Albuterol (Ventolin Hfa) 4 puff Q2H RESP THERAPY PRN INH SHORTNESS OF BREATH Last administered on 11/28/18at 01:53; Admin Dose 4 PUFF; Start 11/26/18 at 01:00 Methylprednisolone Sodium Succinate (Solu-Medrol) 60 mg Q6 IV Last administered on 12/07/18 12:02; Admin Dose 60 MG; Start 11/26/18 at 06:00 Acetaminophen (Tylenol Liquid) 650 mg Q6H PRN PO PAIN LEVEL 1-3 OR FEVER; Start 11/26/18 at 01:00 Morphine Sulfate (morphine) 2 mg Q4H PRN IV PAIN LEVEL 7-10; Start 11/26/18 at 01:00 Lorazepam (Ativan) 1 mg Q2H PRN IV ANXIETY; Start 11/26/18 at 01:00 Enoxaparin Sodium (Lovenox) 40 mg DAILY SC Last administered on 12/07/18 09:33; Admin Dose 40 MG; Start 11/26/18 at 09:00 Norepinephrine 250 ml @ 1.875 mls/ hr TITRATE IV Last administered on 12/06/18at 23:16; Admin Dose 9.375 MLS/HR; Start 11/26/18 at 09:00 Insulin Aspart (Novolog Insulin Pen) NOVOLOG *MILD* ALGORI... Q4 SC Last ad ministered on 12/07/18at 09:34; Admin Dose 1 UNIT; Start 11/26/18 at 13:00 Phenylephrine HCl 40 mg/Dextrose 250 ml @ 37.5 mls/hr TITRATE IV Last administered on 11/30/18at 02:35; Admin Dose 3 MLS/HR; Start 11/26/18 at 11:00 Fentanyl 100 ml @ 2.5 mls/hr TITRATE IV Last administered on 12/07/18 03:21; Admin Dose 5 MLS/HR; Start 11/26/18 at 13:00 IV Flush (NS 10 ml) 10 ml PRN PRN IV IV PROTOCOL; Start 11/26/18 at 15:00 Lansoprazole (Prevacid) 30 mg DAILY@06 GTB Last administered on 12/07/18at 0 5:38; Admin Dose 30 MG; Start 11/28/18 at 06:00 Fluconazole (Diflucan) 100 mg DAILY PO Last administered on 12/07/18at 09:19; Admin Dose 100 MG; Start 11/27/18 at 15:00 Alendronate Sodium (Fosamax) 70 mg Mo@AC BREAKFAST PO ; Start 12/02/18 at 07:00 Cefepime HCl 50 ml @ 100 mls/hr Q12 IVPB Last administered on 12/07/18at 09:16; Admin Dose 100 MLS/HR; Start 12/02/18 at 21:00 Furosemide (Lasix) 20 mg BID DIURETICS IV Last administered on 12/07/18at 05:39; Admin Dose 20 MG; Start 12/03/18 at 08:00; Status Hold Miscellaneous Information 1 ea NOTE XX ; Start 12/05/18 at 15:00 Glucose (Glutose) 15 gm Q15M PRN PO DECREASED GLUCOSE; Start 12/05/18 at 15:00 Glucose (Glutose) 22.5 gm Q15M PRN PO DECREASED GLUCOSE; Start 12/05/18 at 15:00 Dextrose (D50w Syringe) 25 ml Q15M PRN IV DECREASED GLUCOSE; Start 12/05/18 at 15:00 Dextrose (D50w Syringe) 50 ml Q15M PRN IV DECREASED GLUCOSE; Start 12/05/18 at 15:00 Glucagon (Glucagen) 1 mg Q15M PRN IM DECREASED GLUCOSE; Start 12/05/18 at 15:00 Glucose (Glutose) 15 gm Q15M PRN BUCCAL DECREASED GLUCOSE; Start 12/05/18 at 15:00 Insulin Glargine (Lantus) 12 units DAILY@1500 SC Last administered on 12/06/18at 17:55; Admin Dose 12 UNITS; Start 12/06/18 at 15:00 Calcitriol (Rocaltrol Liquid (Ped)) 0.25 mcg DAILY GTB Last administered on 12/07/18at 09:20; Admin Dose 0.25 MCG; Start 12/07/18 at 09:00 Midodrine (Proamatine) 10 mg TID@09,13,17 GTB Last administered on 12/07/18at 09:19; Admin Dose 10 MG; Start 12/07/18 at 09:00 Assessment/Plan Assessment/Plan (Daily) IMP: 1. Sepsis 2. Hypercapnic Resp Failure/Failure to wean 3. s/p NSTEMI 4. Anemia 5. HypoK+ 6. Hypothyroidism RECS: 1. I spoke with family about goals of care and plans in case she is not able to wean or fails extubation. They are going to discuss this amongst themselves and will get back to me. 2. Hold TFs after midnight 3. CPAP 5 PS 8 at 8 am 4. ABG at 10 am 40 min cc time SHANEL MISHRA MD Dec 07, 2018 14:15
[2018-12-07] MEDS: INSULIN GLARGINE [LANTus] (100 UNITS/ML) SYG SC SCH (14:36)
--- NOTE | 2018-12-07 16:31 | CONS ---
Consult Date/Type/Reason Admit Date/Time Nov 25, 2018 at 23:59 Initial Consult Date 11/26/18 Type of Consultation: cv Requesting Provider: SHAUN CHRISTENSEN DO Date/Time of Note DATE: 12/07/18 TIME: 16:28 Subjective Interventional cardiology follow-up progress note Subjective: Case discussed with staff and telemetry was reviewed. Patient remains in sinus rhythm with ventricular pacing. HR is STABLE now d/w physicians pt denies any chest pain or pressure Patient has remained intubated and has not been able to be weaned off the vent yet Objective: General: Elderly female cachectic looking appears to be older than stated age status post intubation on the vent HEENT: NC/AT. pupils are equal. round. NECK: NO JVD. no stridor. CV: RRR. systolic murmur; no gallop or rubs. PULM: no wheezing + rhonchi more on the right GI: SOFT, NT, ND, no rebound or guarding Extremity: 1+ B/L ANKLE edema. no clubbing. neuro: awake and follows command Psych: calm rectal: deferred : normal Chest x-ray 12/06/18 shows Overall, no significant change in appearance of multifocal bilateral pulmonary opacities and small pleural effusions Echocardiogram was personally reviewed which showed normal LV size ejection fraction of about 45-50% EKG was personally reviewed which shows ventricular paced rhythm CT Chest 11/27: 1. Findings compatible with bilateral bronchiolitis and bronchopneumonia, greater on the right, significantly increased when compared to the prior CT. Mild bilateral pleural effusions, grossly stable. 2. Stable mild cardiomegaly. Coronary arterial and aortic atherosclerotic calcifications. 3. Lines and tubes in place, as above. 4. No evidence of mass or lymphadenopathy Objective Vitals Vital Signs Date Temp Pulse Resp B/P (MAP) Pulse Ox O2 O2 Flow FiO2 Time Delivery Rate 12/07/18 98.1 75 14 113/66 97 16:15 (82) 12/07/18 Mechanical 16:00 Ventilator 12/07/18 35 08:00 Intake and Output 12/06/18 12/06/18 12/07/18 1515:00 23:00 07:00 IntakeIntake Total 516.75 ml 830 ml 645.625 ml OutputOutput Total 705 ml 1100 ml 375 ml BalanceBalance -188.25 ml -270 ml 270.625 ml Results/Medications Result Diagram: 12/07/18 0515 12/07/18 1435 Results 24 hrs Laboratory Tests Test 12/06/18 17:53 12/06/18 20:41 12/07/18 01:38 12/07/18 05:15 Bedside Glucose 195 235 H 188 White Blood Count 11.0 H Red Blood Count 3.23 L Hemoglobin 9.2 L Hematocrit 29.3 L Mean Corpuscular 90.7 Volume Mean Corpuscular 28.5 L Hemoglobin Mean Corpuscular 31.4 L Hemoglobin Concent Red Cell 17.7 H Distribution Width Platelet Count 176 Mean Platelet Volume 11.1 H Immature 0.900 H Granulocytes % Neutrophils % 94.5 H Lymphocytes % 0.9 L Monocytes % 3.5 Eosinophils % 0.0 Basophils % 0.2 Nucleated Red Blood 0.0 Cells % Immature 0.100 H Granulocytes # Neutrophils # 10.4 H Lymphocytes # 0.1 L Monocytes # 0.4 Eosinophils # 0.0 Basophils # 0.0 Nucleated Red Blood 0.0 Cells # Sodium Level 139 Potassium Level 3.0 L Chloride Level 96 L Carbon Dioxide Level 40 H Anion Gap 3 L Blood Urea Nitrogen 29 H Creatinine 0.39 L Est Glomerular Filtrat Rate mL/min Glucose Level 94 # Calcium Level 7.2 L Phosphorus Level 1.7 L Magnesium Level 2.1 Test 12/07/18 05:38 12/07/18 09:30 12/07/18 14:26 12/07/18 14:35 Bedside Glucose 114 151 208 Sodium Level 137 Potassium Level 3.8 Chloride Level 95 L Carbon Dioxide Level 41 *H Anion Gap 1 L Blood Urea Nitrogen 33 H Creatinine 0.32 L Est Glomerular Filtrat Rate mL/min Glucose Level 192 Calcium Level 7.3 L Home Meds Reported Medications Acetaminophen* (Tylenol*) 325 Mg Tablet, 650 MG PO Q6H PRN for PAIN AND OR ELEVATED TEMP, TAB 11/30/18 Magnesium Oxide* (Mag-Oxide*) 400 Mg Tablet, 400 MG PO BID, TAB 11/30/18 Levothyroxine Sodium* (Synthroid*) 50 Mcg Tablet, 50 MCG PO BEFORE BREAKFAST, #30 TAB 11/30/18 Potassium Chloride* (Potassium Chloride*) 8 Meq Capsule.er, 10 MEQ PO BID, CAP 11/30/18 Furosemide* (Furosemide*) 40 Mg Tablet, 40 MG PO DAILY, TAB 11/30/18 Cyanocobalamin (B12 Health Booster) 1,000 Mcg/15 Ml Oral.susp, 5000 MCG PO DAILY 11/30/18 Atorvastatin Calcium (Atorvastatin Calcium) 10 Mg Tablet, 10 MG PO QHS, #30 TAB 11/30/18 Aspirin* (Devon Aspirin* Chew) 81 Mg Tab.chew, 81 MG PO BID, TAB.CHEW 11/30/18 Acetazolamide* (Acetazolamide*) 250 Mg Tablet, 250 MG PO DAILY, #60 TAB 11/30/18 Alendronate Sodium* (Fosamax*) 70 Mg Tablet, 70 MG PO Q7D, #4 TAB 11/30/18 Medications Current Medications Ondansetron HCl (Zofran Inj) 4 mg Q6H PRN IV NAUSEA AND/OR VOMITING; Start at 01:00 Albuterol (Ventolin Hfa) 4 puff Q4H RESP THERAPY INH Last administered on 12/07/18at 13:43; Admin Dose 4 PUFF; Start 11/26/18 at 01:00 Albuterol (Ventolin Hfa) 4 puff Q2H RESP THERAPY PRN INH SHORTNESS OF BREATH Last administered on 11/28/18at 01:53; Admin Dose 4 PUFF; Start 11/26/18 at 01:00 Methylprednisolone Sodium Succinate (Solu-Medrol) 60 mg Q6 IV Last administered on 12/07/18at 12:02; Admin Dose 60 MG; Start 11/26/18 at 06:00 Acetaminophen (Tylenol Liquid) 650 mg Q6H PRN PO PAIN LEVEL 1-3 OR FEVER; Start 11/26/18 at 01:00 Morphine Sulfate (morphine) 2 mg Q4H PRN IV PAIN LEVEL 7-10; Start 11/26/18 at 01:00 Lorazepam (Ativan) 1 mg Q2H PRN IV ANXIETY; Start 11/26/18 at 01:00 Enoxaparin Sodium (Lovenox) 40 mg DAILY SC Last administered on 12/07/18at 09:33; Admin Dose 40 MG; Start 11/26/18 at 09:00 Norepinephrine 250 ml @ 1.875 mls/ hr TITRATE IV Last administered on 12/06/18at 23:16; Admin Dose 9.375 MLS/HR; Start 11/26/18 at 09:00 Insulin Aspart (Novolog Insulin Pen) NOVOLOG *MILD* ALGORI... Q4 SC Last administered on 12/07/18at 14:35; Admin Dose 2 UNIT; Start 11/26/18 at 13:00 Phenylephrine HCl 40 mg/Dextrose 250 ml @ 37.5 mls/hr TITRATE IV Last administ ered on 11/30/18at 02:35; Admin Dose 3 MLS/HR; Start 11/26/18 at 11:00 Fentanyl 100 ml @ 2.5 mls/hr TITRATE IV Last administered on 12/07/18at 03:21; Admin Dose 5 MLS/HR; Start 11/26/18 at 13:00 IV Flush (NS 10 ml) 10 ml PRN PRN IV IV PROTOCOL; Start 11/26/18 at 15:00 Lansoprazole (Prevacid) 30 mg DAILY@06 GTB Last administered on 12/07/18at 05:38; Admin Dose 30 MG; Start 11/28/18 at 06:00 Fluconazole (Diflucan) 100 mg DAILY PO Last administered on 12/07/18at 09:19; Admin Dose 100 MG; Start 11/27/18 at 15:00 Alendronate Sodium (Fosamax) 70 mg Mo@AC BREAKFAST PO ; Start 12/02/18 at 07:00 Cefepime HCl 50 ml @ 100 mls/hr Q12 IVPB Last administered on 12/07/18at 09:16; Admin Dose 100 MLS/HR; Start 12/02/18 at 21:00 Furosemide (Lasix) 20 mg BID DIURETICS IV Last administered on 12/07/18at 0 5:39; Admin Dose 20 MG; Start 12/03/18 at 08:00; Status Hold Miscellaneous Information 1 ea NOTE XX ; Start 12/05/18 at 15:00 Glucose (Glutose) 15 gm Q15M PRN PO DECREASED GLUCOSE; Start 12/05/18 at 15:00 Glucose (Glutose) 22.5 gm Q15M PRN PO DECREASED GLUCOSE; Start 12/05/18 at 15:00 Dextrose (D50w Syringe) 25 ml Q15M PRN IV DECREASED GLUCOSE; Start 12/05/18 at 15:00 Dextrose (D50w Syringe) 50 ml Q15M PRN IV DECREASED GLUCOSE; Start 12/05/18 at 15:00 Glucagon (Glucagen) 1 mg Q15M PRN IM DECREASED GLUCOSE; Start 12/05/18 at 15:00 Glucose (Glutose) 15 gm Q15M PRN BUCCAL DECREASED GLUCOSE; Start 12/05/18 at 15:00 Insulin Glargine (Lantus) 12 units DAILY@1500 SC Last administered on 12/07/18at 14:36; Admin Dose 12 UNITS; Start 12/06/18 at 15:00 Calcitriol (Rocaltrol Liquid (Ped)) 0.25 mcg DAILY GTB Last administered on 12/07/18at 09:20; Admin Dose 0.25 MCG; Start 12/07/18 at 09:00 Midodrine (Proamatine) 10 mg TID@09,13,17 GTB Last administered on 12/07/18at 14:21; Admin Dose 10 MG; Start 12/07/18 at 09:00 Assessment/Plan Hospital Course (Demo Recall) Acute on chronic hypoxemic/hypercapnic respiratory failure status post intubation currently on the ventilator Shock: Appears to be septic Pneumonia Pleural effusion History of mitral valve replacement currently functioning normally History of most likely heart block status post permanent pacemaker (Pixelated) Encephalopathy Cachexia and malnutrition History of rheumatoid arthritis History of ovarian cancer stage IV Thyroid disorder Acute renal failure Diabetes anemia Recommendations: Vent support to be continued to be managed as per pulmonary. weaning as tolerated. But may need to have tracheostomy done Antibiotic management as per internal medicine pulmonary and infectious disease consultants BP is stable now off pressors REPLACE Lytes prn . Diabetic management as per internal medicine GI and DVT prophylaxis lasix as per pulm rec Continue with ICU care NAYLA SAUL MD [facility] NAYLA SAUL MD Dec 07, 2018 16:31
[2018-12-08] VITALS (47 sets, daily range): BP systolic 89–119; BP diastolic 54–81; PULSE 60–99; RESP 14–31
[2018-12-08] MEDS: METHYLPREDNISOLONE 125 MG INJ IV SCH ×4 (00:23→17:01)
[2018-12-08] MEDS: INSULIN ASPART [NOVOLOG] 3 ML PEN SC SCH ×6 (00:24→20:59)
[2018-12-08] MEDS: ALBUTEROL HFA 8 GM INHALER INH SCH ×6 (01:03→21:41)
[2018-12-08] MEDS: LANSOPRAZOLE 30 MG CAP GTB SCH (05:54)
[2018-12-08] MEDS ORDERED: ACETAZOLAMIDE 500 MG INJ IV ONE (07:30)
[2018-12-08] MEDS ORDERED: NEUTRA-PHOS 250 MG PACKET PO ONE (07:30)
[2018-12-08] MEDS ORDERED: POTASSIUM CHLORIDE 20 MEQ POWDER FOR ORAL SOLN GTB ONE (07:30)
--- NOTE | 2018-12-08 08:04 | PN ---
DATE: 12/08/2018 SUBJECTIVE: The patient was weaned off pressors yesterday. The patient is currently on CPAP trial. No other events noted. No hemoptysis, hematemesis, hematochezia. OBJECTIVE: VITAL SIGNS: Blood pressure is 106/66, respirations 14, pulse 69, temperature 97.5. HEENT: Head is normocephalic. NECK: Supple. HEART: Regular rate. LUNGS: Show diminished breath sounds at base. ABDOMEN: Soft, nontender to palpation without rebound or guarding. EXTREMITIES: Negative for clubbing, cyanosis. Positive edema. DERMATOLOGIC: No rashes. MUSCULOSKELETAL: No joint effusion. NEUROLOGIC: No change in exam. MEDICATIONS: The patient's medications have been reviewed. LABORATORY DATA: Shows sodium 138, potassium 3.6, BUN 28, creatinine 0.32, phosphorus 2.4. The tobias ent's CBC was reviewed. ASSESSMENT AND PLAN: 1. Sepsis secondary to pneumonia, bacteremia. The patient is currently on pressor support. Continu e current medical management. Continue antibiotic therapy. 2. Ventilator-dependent respiratory failure. Vent settings and ABG was reviewed. Continue to monit or. Continue weaning per pulmonary. 3. Volume overload. Patient is on intermittent diuretic therapy. We will resume diuretics as blood pressure has improved. 4. Metabolic alkalemia, etiology secondary to diuretic therapy, hyperkalemia. We will resume patien t on Diamox. Correct underlying electrolyte abnormalities. 5. Hyperkalemia. Will replete with potassium chloride. 6. Anemia. Continue to monitor hemoglobin and hematocrit levels. 7. Mineral bone disorder, monitor calcium and phosphorus levels. 8. Dysphagia, continue tube feeding. 9. Nonoliguric acute kidney injury, etiology secondary to hemodynamics. Renal function is improved. Continue to monitor. 11. Non-ST elevation myocardial infarction. Continue medical management. 12. History of coronary artery disease. Continue current treatment plan. 13. History of arrhythmia, status post pacemaker. 14. Diabetes. Continue current insulin regimen, adjust as needed. 15. History of ovarian cancer stage IV, status post radiation chemotherapy. 16. History of hypothyroidism. 17. History of arthritis. 18. Gastrointestinal and deep vein thrombosis prophylaxis. Dictated By: SHAUN MCCARTHY/SYBIL Conf#: [id number] DID#: [id number] CC: STEVIE REN MD;*End*
[2018-12-08] MEDS: MIDODRINE 5 MG TAB GTB SCH ×3 (09:00→16:53)
[2018-12-08] MEDS: CEFEPIME 1GM/50 ML (PMX) 50 ML IVPB SCH ×2 (09:56→20:55)
[2018-12-08] MEDS: ENOXAPARIN 40 MG/0.4 ML SYG SC SCH (10:07)
[2018-12-08] MEDS: BALSAM PERU/CASTOR OIL 60 GM TUBE TOP SCH ×2 (10:12→20:56)
--- NOTE | 2018-12-08 10:18 | CONS ---
Consult Date/Type/Reason Admit Date/Time Nov 25, 2018 at 23:59 Initial Consult Date 11/26/18 Type of Consultation: cv Requesting Provider: SHAUN CHRISTENSEN DO Date/Time of Note DATE: 12/08/18 TIME: 10:16 Subjective Interventional cardiology follow-up progress note Subjective: Case discussed with staff and telemetry was reviewed. Patient remains in sinus rhythm with ventricular pacing. HR is STABLE now d/w physicians d/w son pt denies any chest pain or pressure Patient has remained intubated and has not been able to be weaned off the vent yet BUT ON weaning trial now Objective: General: Elderly female cachectic looking appears to be older than stated age status post intubation on the vent HEENT: NC/AT. pupils are equal. round. NECK: NO JVD. no stridor. CV: RRR. systolic murmur; no gallop or rubs. PULM: no wheezing + rhonchi more on the right GI: SOFT, NT, ND, no rebound or guarding Extremity: 1+ B/L ANKLE edema. no clubbing. neuro: awake and follows command Psych: calm rectal: deferred : normal Chest x-ray 12/06/18 shows Overall, no significant change in appearance of multifocal bilateral pulmonary opacities and small pleural effusions CXR 4. 1. Unchanged airspace opacities of the bilateral, right greater than left pe rihilar regions and lower lobes. 2. Stable small to moderate right and small left-sided pleural effusions. Echocardiogram was personally reviewed which showed normal LV size ejection fraction of about 45-50% EKG was personally reviewed which shows ventricular paced rhythm CT Chest 11/27: 1. Findings compatible with bilateral bronchiolitis and bronchopneumonia, greater on the right, significantly increased when compared to the prior CT. Mild bilateral pleural effusions, grossly stable. 2. Stable mild cardiomegaly. Coronary arterial and aortic atherosclerotic calcifications. 3. Lines and tubes in place, as above. 4. No evidence of mass or lymphadenopathy Objective Vitals Vital Signs Date Temp Pulse Resp B/P (MAP) Pulse Ox O2 O2 Flow FiO2 Time Delivery Rate 12/08/18 97.7 67 14 117/65 99 Mechanical 08:00 (82) Ventilator 12/08/18 35 08:00 Intake and Output 12/07/18 12/07/18 12/08/18 1515:00 23:00 07:00 IntakeIntake Total 655.625 ml 775 ml 95 ml OutputOutput Total 1087 ml 280 ml 205 ml BalanceBalance -431.375 ml 495 ml -110 ml Results/Medications Result Diagram: 12/08/180 12/08/180 Results 24 hrs Laboratory Tests Test 12/07/18 14:26 12/07/18 14:35 12/07/18 18:06 12/07/18 20:29 Bedside Glucose 208 208 196 Sodium Level 137 Potassium Level 3.8 Chloride Level 95 L Carbon Dioxide Level 41 *H Anion Gap 1 L Blood Urea Nitrogen 33 H Creatinine 0.32 L Est Glomerular Filtrat Rate mL/min Glucose Level 192 Calcium Level 7.3 L Test 12/08/18 00:24 12/08/18 04:30 12/08/18 04:38 Bedside Glucose 121 86 White Blood Count 6.8 # Red Blood Count 2.72 L Hemoglobin 7.9 L Hematocrit 24.9 L Mean Corpuscular 91.5 Volume Mean Corpuscular 29.0 Hemoglobin Mean Corpuscular 31.7 L Hemoglobin Concent Red Cell 18.0 H Distribution Width Platelet Count 124 #L Mean Platelet Volume 11.7 H Immature 0.400 Granulocytes % Neutrophils % 95.5 H Lymphocytes % 1.3 L Monocytes % 2.5 Eosinophils % 0.0 Basophils % 0.3 Nucleated Red Blood 0.0 Cells % Immature 0.030 Granulocytes # Neutrophils # 6.5 Lymphocytes # 0.1 L Monocytes # 0.2 L Eosinophils # 0.0 Basophils # 0.0 Nucleated Red Blood 0.0 Cells # Sodium Level 138 Potassium Level 3.4 L Chloride Level 97 Carbon Dioxide Level 40 H Anion Gap 1 L Blood Urea Nitrogen 28 H Creatinine 0.32 L Est Glomerular Filtrat Rate mL/min Glucose Level 75 # Calcium Level 7.4 L Phosphorus Level 2.4 L Magnesium Level 2.5 Home Meds Reported Medications Acetaminophen* (Tylenol*) 325 Mg Tablet, 650 MG PO Q6H PRN for PAIN AND OR ELEVATED TEMP, TAB 11/30/18 Magnesium Oxide* (Mag-Oxide*) 400 Mg Tablet, 400 MG PO BID, TAB 11/30/18 Levothyroxine Sodium* (Synthroid*) 50 Mcg Tablet, 50 MCG PO BEFORE BREAKFAST, #30 TAB 11/30/18 Potassium Chloride* (Potassium Chloride*) 8 Meq Capsule.er, 10 MEQ PO BID, CAP 11/30/18 Furosemide* (Furosemide*) 40 Mg Tablet, 40 MG PO DAILY, TAB 11/30/18 Cyanocobalamin (B12 Health Booster) 1,000 Mcg/15 Ml Oral.susp, 5000 MCG PO DAILY 11/30/18 Atorvastatin Calcium (Atorvastatin Calcium) 10 Mg Tablet, 10 MG PO QHS, #30 TAB 11/30/18 Aspirin* (Devon Aspirin* Chew) 81 Mg Tab.chew, 81 MG PO BID, TAB.CHEW 11/30/18 Acetazolamide* (Acetazolamide*) 250 Mg Tablet, 250 MG PO DAILY, #60 TAB 11/30/18 Alendronate Sodium* (Fosamax*) 70 Mg Tablet, 70 MG PO Q7D, #4 TAB 11/30/18 Medications Current Medications Ondansetron HCl (Zofran Inj) 4 mg Q6H PRN IV NAUSEA AND/OR VOMITING; Start 11/26/18 at 01:00 Albuterol (Ventolin Hfa) 4 puff Q4H RESP THERAPY INH Last administered on 12/08/18at 08:28; Admin Dose 4 PUFF; Start 11/26/18 at 01:00 Albuterol (Ventolin Hfa) 4 puff Q2H RESP THERAPY PRN INH SHORTNESS OF BREATH Last administered on 11/28/18at 01:53; Admin Dose 4 PUFF; Start 11/26/18 at 01:00 Methylprednisolone Sodium Succinate (Solu-Medrol) 60 mg Q6 IV Last administered on 12/08/18at 05:54; Admin Dose 60 MG; Start 11/26/18 at 06:00 Acetaminophen (Tylenol Liquid) 650 mg Q6H PRN PO PAIN LEVEL 1-3 OR FEVER; Start 11/26/18 at 01:00 Morphine Sulfate (morphine) 2 mg Q4H PRN IV PAIN LEVEL 7-10; Start 11/26/18 at 01:00 Lorazepam (Ativan) 1 mg Q2H PRN IV ANXIETY; Start 11/26/18 at 01:00 Enoxaparin Sodium (Lovenox) 40 mg DAILY SC Last administered on 12/08/18at 10:07; Admin Dose 40 MG; Start 11/26/18 at 09:00 Norepinephrine 250 ml @ 1.875 mls/ hr TITRATE IV Last administered on 12/06/18at 23:16; Admin Dose 9.375 MLS/HR; Start 11/26/18 at 09:00 Insulin Aspart (Novolog Insulin Pen) NOVOLOG *MILD* ALGORI... Q4 SC Last administered on 12/07/18at 20:36; Admin Dose 2 UNIT; Start 11/26/18 at 13:00 Phenylephrine HCl 40 mg/Dextrose 250 ml @ 37.5 mls/hr TITRATE IV Last administered on 11/30/18at 02:35; Admin Dose 3 MLS/HR; Start 11/26/18 at 11:00 Fentanyl 100 ml @ 2.5 mls/hr TITRATE IV Last administered on 12/07/18at 22:03; Admin Dose 5 MLS/HR; Start 11/26/18 at 13:00 IV Flush (NS 10 ml) 10 ml PRN PRN IV IV PROTOCOL; Start 11/26/18 at 15:00 Lansoprazole (Prevacid) 30 mg DAILY@06 GTB Last administered on 12/08/18at 05:54; Admin Dose 30 MG; Start 11/28/18 at 06:00 Fluconazole (Diflucan) 100 mg DAILY PO Last administered on 12/07/18at 09:19; Admin Dose 100 MG; Start 11/27/18 at 15:00 Alendronate Sodium (Fosamax) 70 mg Mo@AC BREAKFAST PO ; Start 12/02/18 at 07:00 Cefepime HCl 50 ml @ 100 mls/hr Q12 IVPB Last administered on 12/08/18at 09:56; Admin Dose 100 MLS/HR; Start 12/02/18 at 21:00 Furosemide (Lasix) 20 mg BID DIURETICS IV Last administered on 12/07/18at 05:39; Admin Dose 20 MG; Start 12/03/18 at 08:00; Status Hold Miscellaneous Information 1 ea NOTE XX ; Start 12/05/18 at 15:00 Glucose (Glutose) 15 gm Q15M PRN PO DECREASED GLUCOSE; Start 12/05/18 at 15:00 Glucose (Glutose) 22.5 gm Q15M PRN PO DECREASED GLUCOSE; Start 12/05/18 at 15:00 Dextrose (D50w Syringe) 25 ml Q15M PRN IV DECREASED GLUCOSE; Start 12/05/18 at 15:00 Dextrose (D50w Syringe) 50 ml Q15M PRN IV DECREASED GLUCOSE; Start 12/05/18 at 15:00 Glucagon (Glucagen) 1 mg Q15M PRN IM DECREASED GLUCOSE; Start 12/05/18 at 15:00 Glucose (Glutose) 15 gm Q15M PRN BUCCAL DECREASED GLUCOSE; Start 12/05/18 at 15:00 Insulin Glargine (Lantus) 12 units DAILY@1500 SC Last administered on 12/07/18at 14:36; Admin Dose 12 UNITS; Start 12/06/18 at 15:00 Calcitriol (Rocaltrol Liquid (Ped)) 0.25 mcg DAILY GTB Last administered on 12/07/18at 09:20; Admin Dose 0.25 MCG; Start 12/07/18 at 09:00 Midodrine (Proamatine) 10 mg TID@09,13,17 GTB Last administered on 12/07/18at 18:05; Admin Dose 10 MG; Start 12/07/18 at 09:00 Assessment/Plan Hospital Course (Demo Recall) Acute on chronic hypoxemic/hypercapnic respiratory failure status post intubation currently on the ventilator Shock: Appears to be septic Pneumonia Pleural effusion History of mitral valve replacement currently functioning normally History of most likely heart block status post permanent pacemaker ([employer]) Encephalopathy Cachexia and malnutrition History of rheumatoid arthritis History of ovarian cancer stage IV Thyroid disorder Acute renal failure Diabetes anemia Recommendations: Vent support to be continued to be managed as per pulmonary. weaning as tolerated. But may need to have tracheostomy done Antibiotic management as per internal medicine pulmonary and infectious disease consultants BP is stable now off pressors REPLACE Lytes prn . Diabetic management as per internal medicine GI and DVT prophylaxis lasix as per pulm rec Continue with ICU care NAYLA SAUL MD [facility] NAYLA SAUL MD Dec 08, 2018 10:18
--- NOTE | 2018-12-08 10:30 | CONS ---
Assessment/Plan Assessment/Plan Hospital Course (Demo Recall) ID PROGRESS NOTE CURRENT ABX: DAY # => Cefepime + Diflucan s/p Clinda 12/08/18 0430 12/08/18 0430 HPI/HOSPITAL COURSE/24H INTERVAL SUMMARY * She is comfortable on the Vent -- Alert, awake, responsive, Fentanyl GTT onboard, calm * Son and patient are encouraged by her status -- they are hoping patient may be weaned from the Vent after trach placed * No fevers, WBC down today * Indwelling: Endotracheal tube, NG tube, Das, right upper extremity PICC line DIAGNOSTIC IMAGING * 12/08/18 CXR: 1. Unchanged airspace opacities of the bilateral, right greater than left perihilar regions and lower lobes.2. Stable small to moderate right and small left-sided pleural effusions.3. Stable position of support devices.4. Post CABG changes. Aortic atherosclerosis. * 12/05/18 CXR: Overall, no significant change in appearance of multifocal bilateral pulmonary opacities and small pleural effusions. . MICRO/OTHER * 11/26/18: Resp cx: RESPIRATORY CULTURE Final Organism 1 GABY ALBICANS QUANTITY SCANT GROWTH Organism 2 ESCHERICHIA COLI QUANTITY RARE E COLI M.I.C. RX --------- --- AMPICILLIN >=32 R CEFAZOLIN R CEFOTAXIME S CIPROFLOXACIN <=0.25 S GENTAMICIN <=1 S LEVOFLOXACIN 0.5 S TOBRAMYCIN <=1 S TRIMETHOPRIM/SULFAMETHOXAZOLE >=320 R * 11/26 & Urine Cx: (+)Gaby PHYSICAL EXAMINATION: GENERAL: A/A/ responsive, VSS, NAD, mildly sedated, orally intubated on the Vent watching TV HEENT: AT, NC, anicteric - ETT secure to patient and Vent NECK: Supple CHEST: Equal chest rise bilaterally==> Vented HEART: RRR ABDOMEN: Soft EXTREMITIES: Warm, dry, PICC SKIN: No rash, no diaphoresis, ID ASSESSMENT 83 yo F admit with: 1. Sepsis s/p shock 2. Acute on chronic hypoxemic respiratory failure 3. Bilateral pneumonia 4. Gaby albicans UTI 5. Coronary artery disease with a history of mitral valve replacement (-)MRSA Nares ABX ALLERGIES: KNDA INVASIVES: CURRENT ABX: DAY # Cefepime + Diflucan ID RECOMMENDATIONS/PLAN: 1. Continue current ABX over the weekend 2. Son and patient are encouraged by her status -- they are hoping patient may be weaned from the Vent after trach placed . Consultation Date/Type/Reason Admit Date/Time Nov 25, 2018 at 23:59 Initial Consult Date 11/26/18 Requesting Provider: SHAUN CHRISTENSEN DO Date/Time of Note DATE: 12/08/18 TIME: 10:27 Exam/Review of Systems Exam Vitals Vital Signs Date Temp Pulse Resp B/P (MAP) Pulse Ox O2 O2 Flow FiO2 Time Delivery Rate 12/08/18 97.7 67 14 117/65 99 Mechanical 08:00 (82) Ventilator 12/08/18 35 08:00 Intake and Output 12/07/18 12/07/18 12/08/18 1515:00 23:00 07:00 IntakeIntake Total 655.625 ml 775 ml 95 ml OutputOutput Total 1087 ml 280 ml 205 ml BalanceBalance -431.375 ml 495 ml -110 ml Results Result Diagram: 12/08/18 0430 12/08/18 0430 Results 24hrs Laboratory Tests Test 12/07/18 14:26 12/07/18 14:35 12/07/18 18:06 12/07/18 20:29 Bedside Glucose 208 208 196 Sodium Level 137 Potassium Level 3.8 Chloride Level 95 L Carbon Dioxide Level 41 *H Anion Gap 1 L Blood Urea Nitrogen 33 H Creatinine 0.32 L Est Glomerular Filtrat Rate mL/min Glucose Level 192 Calcium Level 7.3 L Test 12/08/18 00:24 12/08/18 04:30 12/08/18 04:38 12/08/18 09:58 Bedside Glucose 121 86 73 White Blood Count 6.8 # Red Blood Count 2.72 L Hemoglobin 7.9 L Hematocrit 24.9 L Mean Corpuscular 91.5 Volume Mean Corpuscular 29.0 Hemoglobin Mean Corpuscular 31.7 L Hemoglobin Concent Red Cell 18.0 H Distribution Width Platelet Count 124 #L Mean Platelet Volume 11.7 H Immature 0.400 Granulocytes % Neutrophils % 95.5 H Lymphocytes % 1.3 L Monocytes % 2.5 Eosinophils % 0.0 Basophils % 0.3 Nucleated Red Blood 0.0 Cells % Immature 0.030 Granulocytes # Neutrophils # 6.5 Lymphocytes # 0.1 L Monocytes # 0.2 L Eosinophils # 0.0 Basophils # 0.0 Nucleated Red Blood 0.0 Cells # Sodium Level 138 Potassium Level 3.4 L Chloride Level 97 Carbon Dioxide Level 40 H Anion Gap 1 L Blood Urea Nitrogen 28 H Creatinine 0.32 L Est Glomerular Filtrat Rate mL/min Glucose Level 75 # Calcium Level 7.4 L Phosphorus Level 2.4 L Magnesium Level 2.5 Medications Medication Current Medications Ondansetron HCl (Zofran Inj) 4 mg Q6H PRN IV NAUSEA AND/OR VOMITING; Start 11/26/18 at 01:00 Albuterol (Ventolin Hfa) 4 puff Q4H RESP THERAPY INH Last administered on 12/08/18 08:28; Admin Dose 4 PUFF; Start 11/26/18 at 01:00 Albuterol (Ventolin Hfa) 4 puff Q2H RESP THERAPY PRN INH SHORTNESS OF BREATH Last administered on 11/28/18at 01:53; Admin Dose 4 PUFF; Start 11/26/18 at 01:00 Methylprednisolone Sodium Succinate (Solu-Medrol) 60 mg Q6 IV Last administered on 12/08/18at 05:54; Admin Dose 60 MG; Start 11/26/18 at 06:00 Acetaminophen (Tylenol Liquid) 650 mg Q6H PRN PO PAIN LEVEL 1-3 OR FEVER; Start 11/26/18 at 01:00 Morphine Sulfate (morphine) 2 mg Q4H PRN IV PAIN LEVEL 7-10; Start 11/26/18 at 01:00 Lorazepam (Ativan) 1 mg Q2H PRN IV ANXIETY; Start 11/26/18 at 01:00 Enoxaparin Sodium (Lovenox) 40 mg DAILY SC Last administered on 12/08/18at 10:07; Admin Dose 40 MG; Start 11/26/18 at 09:00 Norepinephrine 250 ml @ 1.875 mls/ hr TITRATE IV Last administered on 12/06/18at 23:16; Admin Dose 9.375 MLS/HR; Start 11/26/18 at 09:00 Insulin Aspart (Novolog Insulin Pen) NOVOLOG *MILD* ALGORI... Q4 SC Last administered on 12/07/18at 20:36; Admin Dose 2 UNIT; Start 11/26/18 at 13:00 Phenylephrine HCl 40 mg/Dextrose 250 ml @ 37.5 mls/hr TITRATE IV Last administered on 11/30/18at 02:35; Admin Dose 3 MLS/HR; Start 11/26/18 at 11:00 Fentanyl 100 ml @ 2.5 mls/hr TITRATE IV Last administered on 12/07/18at 22:03; Admin Dose 5 MLS/HR; Start 11/26/18 at 13:00 IV Flush (NS 10 ml) 10 ml PRN PRN IV IV PROTOCOL; Start 11/26/18 at 15:00 Lansoprazole (Prevacid) 30 mg DAILY@06 GTB Last administered on 12/08/18at 05:54; Admin Dose 30 MG; Start 11/28/18 at 06:00 Fluconazole (Diflucan) 100 mg DAILY PO Last administered on 12/07/18at 09:19; Admin Dose 100 MG; Start 11/27/18 at 15:00 Alendronate Sodium (Fosamax) 70 mg Mo@AC BREAKFAST PO ; Start 12/02/18 at 07:00 Cefepime HCl 50 ml @ 100 mls/hr Q12 IVPB Last administered on 12/08/18at 09:56; Admin Dose 100 MLS/HR; Start 12/02/18 at 21:00 Furosemide (Lasix) 20 mg BID DIURETICS IV Last administered on 12/07/18at 05:39; Admin Dose 20 MG; Start 12/03/18 at 08:00; Status Hold Miscellaneous Information 1 ea NOTE XX ; Start 12/05/18 at 15:00 Glucose (Glutose) 15 gm Q15M PRN PO DECREASED GLUCOSE; Start 12/05/18 at 15:00 Glucose (Glutose) 22.5 gm Q15M PRN PO DECREASED GLUCOSE; Start 12/05/18 at 15:00 Dextrose (D50w Syringe) 25 ml Q15M PRN IV DECREASED GLUCOSE; Start 12/05/18 at 15:00 Dextrose (D50w Syringe) 50 ml Q15M PRN IV DECREASED GLUCOSE; Start 12/05/18 at 15:00 Glucagon (Glucagen) 1 mg Q15M PRN IM DECREASED GLUCOSE; Start 12/05/18 at 15:00 Glucose (Glutose) 15 gm Q15M PRN BUCCAL DECREASED GLUCOSE; Start 12/05/18 at 15:00 Insulin Glargine (Lantus) 12 units DAILY@1500 SC Last administered on 12/07/18at 14:36; Admin Dose 12 UNITS; Start 12/06/18 at 15:00 Calcitriol (Rocaltrol Liquid (Ped)) 0.25 mcg DAILY GTB Last administered on 12/07/18at 09:20; Admin Dose 0.25 MCG; Start 12/07/18 at 09:00 Midodrine (Proamatine) 10 mg TID@09,13,17 GTB Last administered on 12/07/18at 18:05; Admin Dose 10 MG; Start 12/07/18 at 09:00 WILFREDO ANDRADE NP Dec 08, 2018 10:30
--- NOTE | 2018-12-08 14:42 | CONS ---
Consult Date/Type/Reason Admit Date/Time Nov 25, 2018 at 23:59 Initial Consult Date 11/26/18 Type of Consultation: Pulm/CCM Requesting Provider: SHAUN CHRISTENSEN DO Date/Time of Note DATE: 12/08/18 TIME: 14:39 Subjective No events. Tolerating CPAP/PS with RSBI ~ 100. Objective Vitals Vital Signs Date Temp Pulse Resp B/P (MAP) Pulse Ox O2 O2 Flow FiO2 Time Delivery Rate 12/08/18 89 24 106/62 91 10:30 (77) 12/08/18 97.7 Mechanical 08:00 Ventilator 12/08/18 35 08:00 Intake and Output 12/07/18 12/07/18 12/08/18 1414:59 22:59 06:59 IntakeIntake Total 627.500 ml 805 ml 160 ml OutputOutput Total 1042 ml 295 ml 235 ml BalanceBalance -414.500 ml 510 ml -75 ml Exam HEENT: Neck supple; no JVD; no LAD; + ET tube CVS: RRR, S1 and S2 CHEST: Coarse BS b/l ABD: Soft, NT, + BS EXT: No c/c/e Results/Medications Result Diagram: 12/08/18 0430 12/08/18 0430 Results 24 hrs Laboratory Tests Test 12/07/18 18:06 12/07/18 20:29 12/08/18 00:24 12/08/18 04:30 Bedside Glucose 208 196 121 White Blood Count 6.8 # Red Blood Count 2.72 L Hemoglobin 7.9 L Hematocrit 24.9 L Mean Corpuscular 91.5 Volume Mean Corpuscular 29.0 Hemoglobin Mean Corpuscular 31.7 L Hemoglobin Concen t Red Cell 18.0 H Distribution Width Platelet Count 124 #L Mean Platelet 11.7 H Volume Immature 0.400 Granulocytes % Neutrophils % 95.5 H Lymphocytes % 1.3 L Monocytes % 2.5 Eosinophils % 0.0 Basophils % 0.3 Nucleated Red 0.0 Blood Cells % Immature 0.030 Granulocytes # Neutrophils # 6.5 Lymphocytes # 0.1 L Monocytes # 0.2 L Eosinophils # 0.0 Basophils # 0.0 Nucleated Red 0.0 Blood Cells # Sodium Level 138 Potassium Level 3.4 L Chloride Level 97 Carbon Dioxide 40 H Level Anion Gap 1 L Blood Urea 28 H Nitrogen Creatinine 0.32 L Est Glomerular Filtrat Rate mL/min Glucose Level 75 # Calcium Level 7.4 L Phosphorus Level 2.4 L Magnesium Level 2.5 Test 12/08/18 04:38 12/08/18 09:58 12/08/18 10:00 12/08/18 14:11 Bedside Glucose 86 73 94 Blood Gas Blood arterial Specimen Source Arterial Blood 12/08/2018 10:45: Date Drawn 20 AM Arterial Blood pH 7.418 (Temp corrected) Arterial Blood 62.8 H pCO2 (Temp correct) Arterial Blood 75.2 L pO2 (Temp corrected) Arterial Blood 39.6 H HCO3 Arterial Blood 13.1 H Base Excess Arterial Blood 93.3 L Oxygen Saturation Jordi Test ACCEPTAB Arterial Blood Left Radial Gas Puncture Site Arterial 0.3 Blood Carboxyhemo globin Arterial Blood 0.3 Methemoglobin Blood Gas A-a O2 64.9 H Differential Oxyhemoglobin 92.7 L Percent Blood Gas 37.0 Temperature Blood Gas Actual 26 Respiration Rate Blood Gas VENT - CPAP Modality FiO2 30.0 Blood Gas Low 5.0 PEEP Setting Blood Gas 8 Pressure Support Blood Gas AT Notified Whom Blood Gas 12/08/2018 10:56: Notified Time 22 AM Home Meds Reported Medications Acetaminophen* (Tylenol*) 325 Mg Tablet, 650 MG PO Q6H PRN for PAIN AND OR ELEVATED TEMP, TAB 11/30/18 Magnesium Oxide* (Mag-Oxide*) 400 Mg Tablet, 400 MG PO BID, TAB 11/30/18 Levothyroxine Sodium* (Synthroid*) 50 Mcg Tablet, 50 MCG PO BEFORE BREAKFAST, #30 TAB 11/30/18 Potassium Chloride* (Potassium Chloride*) 8 Meq Capsule.er, 10 MEQ PO BID, CAP 11/30/18 Furosemide* (Furosemide*) 40 Mg Tablet, 40 MG PO DAILY, TAB 11/30/18 Cyanocobalamin (B12 Health Booster) 1,000 Mcg/15 Ml Oral.susp, 5000 MCG PO DAILY 11/30/18 Atorvastatin Calcium (Atorvastatin Calcium) 10 Mg Tablet, 10 MG PO QHS, #30 TAB 11/30/18 Aspirin* (Devon Aspirin* Chew) 81 Mg Tab.chew, 81 MG PO BID, TAB.CHEW 11/30/18 Acetazolamide* (Acetazolamide*) 250 Mg Tablet, 250 MG PO DAILY, #60 TAB 11/30/18 Alendronate Sodium* (Fosamax*) 70 Mg Tablet, 70 MG PO Q7D, #4 TAB 11/30/18 Medications Current Medications Ondansetron HCl (Zofran Inj) 4 mg Q6H PRN IV NAUSEA AND/OR VOMITING; Start 11/26/18 at 01:00 Albuterol (Ventolin Hfa) 4 puff Q4H RESP THERAPY INH Last administered on 12/08/18 13:29; Admin Dose 4 PUFF; Start 11/26/18 at 01:00 Albuterol (Ventolin Hfa) 4 puff Q2H RESP THERAPY PRN INH SHORTNESS OF BREATH Last administered on 11/28/18 01:53; Admin Dose 4 PUFF; Start 11/26/18 at 01:00 Methylprednisolone Sodium Succinate (Solu-Medrol) 60 mg Q6 IV Last administered on 12/08/18at 14:12; Admin Dose 60 MG; Start 11/26/18 at 06:00 Acetaminophen (Tylenol Liquid) 650 mg Q6H PRN PO PAIN LEVEL 1-3 OR FEVER; Start 11/26/18 at 01:00 Morphine Sulfate (morphine) 2 mg Q4H PRN IV PAIN LEVEL 7-10; Start 11/26/18 at 01:00 Lorazepam (Ativan) 1 mg Q2H PRN IV ANXIETY; Start 11/26/18 at 01:00 Enoxaparin Sodium (Lovenox) 40 mg DAILY SC Last administered on 12/08/18at 10:07; Admin Dose 40 MG; Start 11/26/18 at 09:00 Norepinephrine 250 ml @ 1.875 mls/ hr TITRATE IV Last administered on 12/06/18at 23:16; Admin Dose 9.375 MLS/HR; Start 11/26/18 at 09:00 Insulin Aspart (Novolog Insulin Pen) NOVOLOG *MILD* ALGORI... Q4 SC Last admin istered on 12/07/18at 20:36; Admin Dose 2 UNIT; Start 11/26/18 at 13:00 Phenylephrine HCl 40 mg/Dextrose 250 ml @ 37.5 mls/hr TITRATE IV Last administered on 11/30/18at 02:35; Admin Dose 3 MLS/HR; Start 11/26/18 at 11:00 Fentanyl 100 ml @ 2.5 mls/hr TITRATE IV Last administered on 12/07/18at 22:03; Admin Dose 5 MLS/HR; Start 11/26/18 at 13:00 IV Flush (NS 10 ml) 10 ml PRN PRN IV IV PROTOCOL; Start 11/26/18 at 15:00 Lansoprazole (Prevacid) 30 mg DAILY@06 GTB Last administered on 12/08/18at 05:5 4; Admin Dose 30 MG; Start 11/28/18 at 06:00 Fluconazole (Diflucan) 100 mg DAILY PO Last administered on 12/07/18at 09:19; Admin Dose 100 MG; Start 11/27/18 at 15:00 Alendronate Sodium (Fosamax) 70 mg Mo@AC BREAKFAST PO ; Start 12/02/18 at 07:00 Cefepime HCl 50 ml @ 100 mls/hr Q12 IVPB Last administered on 12/08/18at 09:56; Admin Dose 100 MLS/HR; Start 12/02/18 at 21:00 Furosemide (Lasix) 20 mg BID DIURETICS IV Last administered on 12/07/18at 05:39; Admin Dose 20 MG; Start 12/03/18 at 08:00; Status Hold Miscellaneous Information 1 ea NOTE XX ; Start 12/05/18 at 15:00 Glucose (Glutose) 15 gm Q15M PRN PO DECREASED GLUCOSE; Start 12/05/18 at 15:00 Glucose (Glutose) 22.5 gm Q15M PRN PO DECREASED GLUCOSE; Start 12/05/18 at 15:00 Dextrose (D50w Syringe) 25 ml Q15M PRN IV DECREASED GLUCOSE; Start 12/05/18 at 15:00 Dextrose (D50w Syringe) 50 ml Q15M PRN IV DECREASED GLUCOSE; Start 12/05/18 at 15:00 Glucagon (Glucagen) 1 mg Q15M PRN IM DECREASED GLUCOSE; Start 12/05/18 at 15:00 Glucose (Glutose) 15 gm Q15M PRN BUCCAL DECREASED GLUCOSE; Start 12/05/18 at 15:00 Insulin Glargine (Lantus) 12 units DAILY@1500 SC Last administered on 12/07/18at 14:36; Admin Dose 12 UNITS; Start 12/06/18 at 15:00 Calcitriol (Rocaltrol Liquid (Ped)) 0.25 mcg DAILY GTB Last administered on 12/07/18at 09:20; Admin Dose 0.25 MCG; Start 12/07/18 at 09:00 Midodrine (Proamatine) 10 mg TID@,,17 GTB Last administered on 12/07/18at 18:05; Admin Dose 10 MG; Start 12/07/18 at 09:00 Assessment/Plan Assessment/Plan (Daily) IMP: 1. Sepsis 2. Hypercapnic Resp Failure/Failure to wean 3. s/p NSTEMI 4. Anemia 5. HypoK+ 6. Hypothyroidism RECS: 1. I spoke again with family about goals of care and plans in case she fails extubation. I also explained to them that the chances of her regaining her previously quality of life with tracheostomy is unlikely. They are going to discuss this amongst themselves and will get back to me. 2. RT to perform NIF and VC 3. CPAP 5 PS 8 in am 4. TF to resume 40 min cc time SHANEL MISHRA MD Dec 08, 2018 14:42
[2018-12-08] MEDS: FLUCONAZOLE 100 MG TAB PO SCH (16:50)
[2018-12-08] MEDS: CALCITRIOL (1 MCG/ML PO SYG) GTB SCH (16:50)
[2018-12-08] MEDS: INSULIN GLARGINE [LANTus] (100 UNITS/ML) SYG SC SCH (17:07)
[2018-12-09] VITALS (37 sets, daily range): BP systolic 93–125; BP diastolic 54–83; PULSE 65–101; RESP 14–33
[2018-12-09] MEDS: METHYLPREDNISOLONE 125 MG INJ IV SCH ×4 (01:35→17:34)
[2018-12-09] MEDS: INSULIN ASPART [NOVOLOG] 3 ML PEN SC SCH ×6 (01:42→20:43)
[2018-12-09] MEDS: ALBUTEROL HFA 8 GM INHALER INH SCH ×6 (01:50→21:30)
[2018-12-09] MEDS: ALENDRONATE 70 MG TAB PO SCH (05:34)
[2018-12-09] MEDS: LANSOPRAZOLE 30 MG CAP GTB SCH (05:34)
[2018-12-09] MEDS ORDERED: ACETAZOLAMIDE 500 MG INJ IV SCH (09:00)
--- NOTE | 2018-12-09 09:03 | PN ---
DATE: 12/09/2018 SUBJECTIVE: The patient remains critically ill on full ventilatory support. The patient is pending possible trach and PEG placement. No other acute events noted. No hemoptysis, hematemesis or hemato chezia. OBJECTIVE: VITAL SIGNS: Blood pressure is 100/66, respirations 18, temperature 98.6, heart rate 72. HEENT: Head is normocephalic. NECK: Supple. HEART: Regular rate. LUNGS: Show diminished breath sounds at the base. ABDOMEN: Soft, nontender to palpation without rebound or guarding. EXTREMITIES: Negative for clubbing, cyanosis. Positive edema, diffuse anasarca. DERMATOLOGIC: No rashes. MUSCULOSKELETAL: No joint effusion. NEUROLOGIC: No change in exam. MEDICATIONS: The patient's medications have been reviewed. LABORATORY DATA: From 12/09/2018, was reviewed. The patient's ABG was reviewed. IMAGING STUDIES: Reviewed. ASSESSMENT AND PLAN: 1. Sepsis secondary to pneumonia and bacteremia. The patient is currently off pressors. Continue m edical management, continue antibiotic therapy. 2. Ventilator-dependent respiratory failure. Vent settings and ABG was reviewed. The patient has f mojgan multiple weaning trial. The patient is pending possible trach placement. 3. Volume overload. Continue diuretic therapy. We will continue Diamox. 4. Metabolic alkalemia secondary to diuretic therapy, hypokalemia. Improving. Continue Diamox. 5. Hypokalemia. We will replete with potassium chloride as needed. 6. Anemia. Continue to monitor hemoglobin and hematocrit levels. 7. Mineral bone disorder. Continue to monitor calcium and phosphorus levels. 8. Dysphagia. Continue tube feeding. 9. Nonoliguric acute kidney injury, etiology is secondary to hemodynamics. Renal function is improv ed. Continue to monitor. 10. Non-ST elevation myocardial infarction. Continue medical management. 11. Coronary artery disease. Continue current treatment plan. 12. History of arrhythmia, status post pacemaker. 13. Diabetes. Continue current insulin regimen. 14. History of ovarian cancer stage IV, status post chemotherapy and debulking surgery. 15. Hypothyroidism. 16. History of arthritis. 17. Gastrointestinal and deep vein thrombosis prophylaxis. Dictated By: SHAUN MCCARTHY/SYBIL Conf#: [id number] DID#: [id number] CC: JESS SAUCEDO MD; STEVIE REN MD;*End*
[2018-12-09] MEDS: CEFEPIME 1GM/50 ML (PMX) 50 ML IVPB SCH (09:28)
[2018-12-09] MEDS: ENOXAPARIN 40 MG/0.4 ML SYG SC SCH (09:30)
[2018-12-09] MEDS: FLUCONAZOLE 100 MG TAB PO SCH (09:31)
[2018-12-09] MEDS: BALSAM PERU/CASTOR OIL 60 GM TUBE TOP SCH ×2 (09:31→20:36)
--- NOTE | 2018-12-09 09:39 | CONS ---
Consult Date/Type/Reason Admit Date/Time Nov 25, 2018 at 23:59 Initial Consult Date 11/26/18 Type of Consult Pulmonary Requesting Provider: SHAUN CHRISTENSEN DO Date/Time of Note DATE: 12/09/18 TIME: 09:37 Subjective Continues mechanical ventilation not extubated yet. Borderline CPAP trials. Objective Vital Signs Date Temp Pulse Resp B/P (MAP) Pulse Ox O2 O2 Flow FiO2 Time Delivery Rate 12/09/18 97 08:00 12/09/18 17 113/68 99 Mechanical 06:00 (83) Ventilator 12/09/18 30 05:38 12/09/18 98.1 04:00 Intake and Output 12/08/18 12/08/18 12/09/18 1414:59 22:59 06:59 IntakeIntake Total 50 ml 330 ml 210 ml OutputOutput Total 353 ml 395 ml 285 ml BalanceBalance -303 ml -65 ml -75 ml Exam GENERAL: Elderly lady orally intubated on mechanical ventilation VITAL SIGNS: per chart NECK: Supple. No JVD or lymphadenopathy. CARDIAC EXAM: S1, S2. No added sounds or murmurs. CHEST: clear bilaterally, No added sounds, rales or wheezes ABDOMEN: Soft, nontender. No guarding or rebound. EXTREMITIES: No cyanosis, clubbing or edema. NEUROLOGIC: Generalized weakness. No focal deficits. Vent Setting Ventilator Support Mode: AC Fraction of Inspired Oxygen pe: 30 Positive End Expiratory Pressu: 5.0 Results/Medications Result Diagram: 12/09/18 0300 12/09/18 0300 Results 24 hrs Laboratory Tests Test 12/08/18 09:58 12/08/18 10:00 12/08/18 14:11 12/08/18 17:06 Bedside Glucose 73 94 99 Blood Gas Blood arterial Specimen Source Arterial Blood 12/08/2018 10:45: Date Drawn 20 AM Arterial Blood pH 7.418 (Temp corrected) Arterial Blood 62.8 H pCO2 (Temp correct) Arterial Blood 75.2 L pO2 (Temp corrected) Arterial Blood 39.6 H HCO3 Arterial Blood 13.1 H Base Excess Arterial Blood 93.3 L Oxygen Saturation Jordi Test ACCEPTAB Arterial Blood Left Radial Gas Puncture Site Arterial 0.3 Blood Carboxyhemo globin Arterial Blood 0.3 Methemoglobin Blood Gas A-a O2 64.9 H Differential Oxyhemoglobin 92.7 L Percent Blood Gas 37.0 Temperature Blood Gas Actual 26 Respiration Rate Blood Gas VENT - CPAP Modality FiO2 30.0 Blood Gas Low 5.0 PEEP Setting Blood Gas 8 Pressure Support Blood Gas AT Notified Whom Blood Gas 12/08/2018 10:56: Notified Time 22 AM Test 12/08/18 20:19 12/09/18 01:31 12/09/18 03:00 12/09/18 05:36 Bedside Glucose 145 183 189 White Blood Count 8.2 # Red Blood Count 3.02 L Hemoglobin 8.7 L Hematocrit 27.9 L Mean Corpuscular 92.4 Volume Mean Corpuscular 28.8 L Hemoglobin Mean Corpuscular 31.2 L Hemoglobin Concen t Red Cell 18.6 H Distribution Width Platelet Count 125 L Mean Platelet 11.5 H Volume Immature 1.100 H Granulocytes % Neutrophils % 94.3 H Lymphocytes % 1.1 L Monocytes % 3.4 Eosinophils % 0.0 Basophils % 0.1 Nucleated Red 0.0 Blood Cells % Immature 0.090 H Granulocytes # Neutrophils # 7.7 H Lymphocytes # 0.1 L Monocytes # 0.3 Eosinophils # 0.0 Basophils # 0.0 Nucleated Red 0.0 Blood Cells # Sodium Level 138 Potassium Level 4.1 Chloride Level 99 Carbon Dioxide 37 H Level Anion Gap 2 L Blood Urea 31 H Nitrogen Creatinine 0.43 L Est Glomerular Filtrat Rate mL/min Glucose Level 152 Lactic Acid Level 1.1 Calcium Level 7.9 L Phosphorus Level 3.4 Magnesium Level 2.4 Test 12/09/18 09:26 Bedside Glucose 187 Medications Current Medications Ondansetron HCl (Zofran Inj) 4 mg Q6H PRN IV NAUSEA AND/OR VOMITING; Start 11/26/18 at 01:00 Albuterol (Ventolin Hfa) 4 puff Q4H RESP THERAPY INH Last administered on 12/09/18at 05:38; Admin Dose 4 PUFF; Start 11/26/18 at 01:00 Albuterol (Ventolin Hfa) 4 puff Q2H RESP THERAPY PRN INH SHORTNESS OF BREATH Last administered on 11/28/18at 01:53; Admin Dose 4 PUFF; Start 11/26/18 at 01:00 Methylprednisolone Sodium Succinate (Solu-Medrol) 60 mg Q6 IV Last administered on 12/09/18at 05:34; Admin Dose 60 MG; Start 11/26/18 at 06:00 Acetaminophen (Tylenol Liquid) 650 mg Q6H PRN PO PAIN LEVEL 1-3 OR FEVER; Start 11/26/18 at 01:00 Morphine Sulfate (morphine) 2 mg Q4H PRN IV PAIN LEVEL 7-10; Start 11/26/18 at 01:00 Lorazepam (Ativan) 1 mg Q2H PRN IV ANXIETY; Start 11/26/18 at 01:00 Enoxaparin Sodium (Lovenox) 40 mg DAILY SC Last administered on 12/09/18 09:30; Admin Dose 40 MG; Start 11/26/18 at 09:00 Norepinephrine 250 ml @ 1.875 mls/ hr TITRATE IV Last administered on 12/06/18 23:16; Admin Dose 9.375 MLS/HR; Start 11/26/18 at 09:00 Insulin Aspart (Novolog Insulin Pen) NOVOLOG *MILD* ALGORI... Q4 SC Last administered on 12/09/18 09:31; Admin Dose 2 UNIT; Start 11/26/18 at 13:00 Phenylephrine HCl 40 mg/Dextrose 250 ml @ 37.5 mls/hr TITRATE IV Last administered on 11/30/18at 02:35; Admin Dose 3 MLS/HR; Start 11/26/18 at 11:00 Fentanyl 100 ml @ 2.5 mls/hr TITRATE IV Last administered on 12/07/18at 22:03; Admin Dose 5 MLS/HR; Start 11/26/18 at 13:00 IV Flush (NS 10 ml) 10 ml PRN PRN IV IV PROTOCOL; Start 11/26/18 at 15:00 Lansoprazole (Prevacid) 30 mg DAILY@06 GTB Last administered on 12/09/18 05:34; Admin Dose 30 MG; Start 11/28/18 at 06:00 Fluconazole (Diflucan) 100 mg DAILY PO Last administered on 12/09/18 09:31; Admin Dose 100 MG; Start 11/27/18 at 15:00 Alendronate Sodium (Fosamax) 70 mg Mo@AC BREAKFAST PO Last administered on 12/09/18 05:34; Admin Dose 70 MG; Start 12/02/18 at 07:00 Cefepime HCl 50 ml @ 100 mls/hr Q12 IVPB Last administered on 12/09/18at 09:28; Admin Dose 100 MLS/HR; Start 12/02/18 at 21:00 Furosemide (Lasix) 20 mg BID DIURETICS IV Last administered on 12/07/18at 05:39; Admin Dose 20 MG; Start 12/03/18 at 08:00; Status Hold Miscellaneous Information 1 ea NOTE XX ; Start 12/05/18 at 15:00 Glucose (Glutose) 15 gm Q15M PRN PO DECREASED GLUCOSE; Start 12/05/18 at 15:00 Glucose (Glutose) 22.5 gm Q15M PRN PO DECREASED GLUCOSE; Start 12/05/18 at 15:00 Dextrose (D50w Syringe) 25 ml Q15M PRN IV DECREASED GLUCOSE; Start 12/05/18 at 15:00 Dextrose (D50w Syringe) 50 ml Q15M PRN IV DECREASED GLUCOSE; Start 12/05/18 at 15:00 Glucagon (Glucagen) 1 mg Q15M PRN IM DECREASED GLUCOSE; Start 12/05/18 at 15:00 Glucose (Glutose) 15 gm Q15M PRN BUCCAL DECREASED GLUCOSE; Start 12/05/18 at 15:00 Insulin Glargine (Lantus) 12 units DAILY@1500 SC Last administered on 12/07/18at 14:36; Admin Dose 12 UNITS; Start 12/06/18 at 15:00 Calcitriol (Rocaltrol Liquid (Ped)) 0.25 mcg DAILY GTB Last administered on 12/08/18at 16:50; Admin Dose 0.25 MCG; Start 12/07/18 at 09:00 Midodrine (Proamatine) 10 mg TID@,,17 GTB Last administered on 12/08/18at 16:53; Admin Dose 10 MG; Start 12/07/18 at 09:00 Acetazolamide (Diamox) 500 mg DAILY IV Last administered on 12/09/18at 09:27; Admin Dose 500 MG; Start 12/09/18 at 09:00 Assessment/Plan Hospital Course (Demo Recall) IMP: 1. Sepsis 2. Hypercapnic Resp Failure/Failure to wean 3. s/p NSTEMI 4. Anemia 5. HypoK+ 6. Hypothyroidism RECS: 1. Family considering goals of care. 2. CPAP trial if tolerated 3. Decrease sedation as tolerated 4. TF to resume 40 min cc time JESS SAUCEDO MD, [facility] Dec 09, 2018 09:39
[2018-12-09] MEDS: CALCITRIOL (1 MCG/ML PO SYG) GTB SCH (09:40)
[2018-12-09] MEDS: MIDODRINE 5 MG TAB GTB SCH ×3 (09:40→17:28)
--- NOTE | 2018-12-09 12:10 | CONS ---
Assessment/Plan Assessment/Plan Hospital Course (Demo Recall) No acute changes overnight patient is lethargic, comfortable on vent family at bedside no fevers overnight. WBC 8.2 platelets 125 neutrophils 94.3 BUN 31 creatinine 0.43 Antimicrobials: Fluconazole, cefepime Microbiology: Urine cx + Nicole albicans, sputum culture grew Nicole albicans/E coli Indwelling: Endotracheal tube, NG tube, Das, right upper extremity PICC line Physical examination: This is a chronically ill-appearing wasted elderly woman who is intubated sedated in no distress. Head atraumatic normocephalic neck is supple chest rise symmetrical breath sounds diminished bases heart: S1-S2 abdomen soft bowel sounds present extremities without cyanosis Assessment: 1. S/p sepsis 2. Acute on chronic hypoxemic respiratory failure 3. Bilateral pneumonia 4. Nicole albicans UTI 5. Coronary artery disease with a history of mitral valve replacement Plan: Remains stable, pending decision regarding tracheostomy versus extubation without reintubation, will discontinue antibiotics and monitor closely Discussed with family Consultation Date/Type/Reason Admit Date/Time Nov 25, 2018 at 23:59 Initial Consult Date 11/26/18 Type of Consult id Requesting Provider: SHAUN CHRISTENSEN DO Date/Time of Note DATE: 12/09/18 TIME: 12:08 Exam/Review of Systems Exam Vitals Vital Signs Date Temp Pulse Resp B/P (MAP) Pulse Ox O2 O2 Flow FiO2 Time Delivery Rate 12/09/18 95 18 98 30 11:09 12/09/18 113/68 Mechanical 06:00 (83) Ventilator 12/09/18 98.1 04:00 Intake and Output 12/08/18 12/08/18 12/09/18 1515:00 23:00 07:00 IntakeIntake Total 50 ml 360 ml 180 ml OutputOutput Total 353 ml 440 ml 240 ml BalanceBalance -303 ml -80 ml -60 ml Results Result Diagram: 12/09/18 0300 12/09/18 0300 Results 24hrs Laboratory Tests Test 12/08/18 14:11 12/08/18 17:06 12/08/18 20:19 12/09/18 01:31 Bedside Glucose 94 99 145 183 Test 12/09/18 03:00 12/09/18 05:36 12/09/18 09:26 White Blood Count 8.2 # Red Blood Count 3.02 L Hemoglobin 8.7 L Hematocrit 27.9 L Mean Corpuscular 92.4 Volume Mean Corpuscular 28.8 L Hemoglobin Mean Corpuscular 31.2 L Hemoglobin Concent Red Cell 18.6 H Distribution Width Platelet Count 125 L Mean Platelet Volume 11.5 H Immature 1.100 H Granulocytes % Neutrophils % 94.3 H Lymphocytes % 1.1 L Monocytes % 3.4 Eosinophils % 0.0 Basophils % 0.1 Nucleated Red Blood 0.0 Cells % Immature 0.090 H Granulocytes # Neutrophils # 7.7 H Lymphocytes # 0.1 L Monocytes # 0.3 Eosinophils # 0.0 Basophils # 0.0 Nucleated Red Blood 0.0 Cells # Sodium Level 138 Potassium Level 4.1 Chloride Level 99 Carbon Dioxide Level 37 H Anion Gap 2 L Blood Urea Nitrogen 31 H Creatinine 0.43 L Est Glomerular Filtrat Rate mL/min Glucose Level 152 Lactic Acid Level 1.1 Calcium Level 7.9 L Phosphorus Level 3.4 Magnesium Level 2.4 Bedside Glucose 189 187 Medications Medication Current Medications Ondansetron HCl (Zofran Inj) 4 mg Q6H PRN IV NAUSEA AND/OR VOMITING; Start at 01:00 Albuterol (Ventolin Hfa) 4 puff Q4H RESP THERAPY INH Last administered on 12/09/18at 11:21; Admin Dose 4 PUFF; Start 11/26/18 at 01:00 Albuterol (Ventolin Hfa) 4 puff Q2H RESP THERAPY PRN INH SHORTNESS OF BREATH Last administered on 11/28/18at 01:53; Admin Dose 4 PUFF; Start 11/26/18 at 01:00 Methylprednisolone Sodium Succinate (Solu-Medrol) 60 mg Q6 IV Last administered on 12/09/18at 05:34; Admin Dose 60 MG; Start 11/26/18 at 06:00 Acetaminophen (Tylenol Liquid) 650 mg Q6H PRN PO PAIN LEVEL 1-3 OR FEVER; Start 11/26/18 at 01:00 Morphine Sulfate (morphine) 2 mg Q4H PRN IV PAIN LEVEL 7-10; Start 11/26/18 at 01:00 Lorazepam (Ativan) 1 mg Q2H PRN IV ANXIETY; Start 11/26/18 at 01:00 Enoxaparin Sodium (Lovenox) 40 mg DAILY SC Last administered on 12/09/18 09:30; Admin Dose 40 MG; Start 11/26/18 at 09:00 Norepinephrine 250 ml @ 1.875 mls/ hr TITRATE IV Last administered on 12/06/18 23:16; Admin Dose 9.375 MLS/HR; Start 11/26/18 at 09:00 Insulin Aspart (Novolog Insulin Pen) NOVOLOG *MILD* ALGORI... Q4 SC Last administered on 12/09/18 09:31; Admin Dose 2 UNIT; Start 11/26/18 at 13:00 Phenylephrine HCl 40 mg/Dextrose 250 ml @ 37.5 mls/hr TITRATE IV Last administ ered on 11/30/18 02:35; Admin Dose 3 MLS/HR; Start 11/26/18 at 11:00 Fentanyl 100 ml @ 2.5 mls/hr TITRATE IV Last administered on 12/07/18 22:03; Admin Dose 5 MLS/HR; Start 11/26/18 at 13:00 IV Flush (NS 10 ml) 10 ml PRN PRN IV IV PROTOCOL; Start 11/26/18 at 15:00 Lansoprazole (Prevacid) 30 mg DAILY@06 GTB Last administered on 12/09/18 05:34; Admin Dose 30 MG; Start 11/28/18 at 06:00 Fluconazole (Diflucan) 100 mg DAILY PO Last administered on 12/09/18 09:31; Admin Dose 100 MG; Start 11/27/18 at 15:00 Alendronate Sodium (Fosamax) 70 mg Mo@AC BREAKFAST PO Last administered on 12/09/18 05:34; Admin Dose 70 MG; Start 12/02/18 at 07:00 Cefepime HCl 50 ml @ 100 mls/hr Q12 IVPB Last administered on 12/09/18 09:28; Admin Dose 100 MLS/HR; Start 12/02/18 at 21:00 Furosemide (Lasix) 20 mg BID DIURETICS IV Last administered on 12/07/18 05:39; Admin Dose 20 MG; Start 12/03/18 at 08:00; Status Hold Miscellaneous Information 1 ea NOTE XX ; Start 12/05/18 at 15:00 Glucose (Glutose) 15 gm Q15M PRN PO DECREASED GLUCOSE; Start 12/05/18 at 15:00 Glucose (Glutose) 22.5 gm Q15M PRN PO DECREASED GLUCOSE; Start 12/05/18 at 15:00 Dextrose (D50w Syringe) 25 ml Q15M PRN IV DECREASED GLUCOSE; Start 12/05/18 at 15:00 Dextrose (D50w Syringe) 50 ml Q15M PRN IV DECREASED GLUCOSE; Start 12/05/18 at 15:00 Glucagon (Glucagen) 1 mg Q15M PRN IM DECREASED GLUCOSE; Start 12/05/18 at 15:00 Glucose (Glutose) 15 gm Q15M PRN BUCCAL DECREASED GLUCOSE; Start 12/05/18 at 15:00 Insulin Glargine (Lantus) 12 units DAILY@1500 SC Last administered on 12/07/18at 14:36; Admin Dose 12 UNITS; Start 12/06/18 at 15:00 Calcitriol (Rocaltrol Liquid (Ped)) 0.25 mcg DAILY GTB Last administered on 12/09/18at 09:40; Admin Dose 0.25 MCG; Start 12/07/18 at 09:00 Midodrine (Proamatine) 10 mg TID@,13,17 GTB Last administered on 12/09/18at 09:40; Admin Dose 10 MG; Start 12/07/18 at 09:00 Acetazolamide (Diamox) 500 mg DAILY IV Last administered on 12/09/18at 09:27; Admin Dose 500 MG; Start 12/09/18 at 09:00 JODY BOYD NP Dec 09, 2018 12:10
--- NOTE | 2018-12-09 13:13 | CONS ---
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 Plan to proceed with tracheostomy if the patient is not extubated Discussed at length with the patient's family and the nursing staff Consultation Date/Type/Reason Admit Date/Time Nov 25, 2018 at 23:59 Date of Consultation: Dec 09, 2018 Type of Consult Thoracic surgery for tracheostomy Reason for Consultation Thoracic surgery Date/Time of Note DATE: 12/09/18 TIME: 13:10 Hx of Present Illness This is an 83-year-old female with a history of advanced COPD chronic hypercapnic respiratory failure was managed at [facility] however subsequently was found to have respiratory failure severe enough that she could not be extubated or been asked to be evaluate this patient for possible tracheostomy Past medical history significant for cachexia malnutrition rheumatoid arthritis stage IV ovarian cancer pacemaker cachexia heart block Cardiovascular: no complaints Gastrointestinal: no complaints Genitourinary: no complaints Musculoskeletal: no complaints Past Medical History Home Meds Reported Medications Acetaminophen* (Tylenol*) 325 Mg Tablet, 650 MG PO Q6H PRN for PAIN AND OR ELEVATED TEMP, TAB 11/30/18 Magnesium Oxide* (Mag-Oxide*) 400 Mg Tablet, 400 MG PO BID, TAB 11/30/18 Levothyroxine Sodium* (Synthroid*) 50 Mcg Tablet, 50 MCG PO BEFORE BREAKFAST, #30 TAB 11/30/18 Potassium Chloride* (Potassium Chloride*) 8 Meq Capsule.er, 10 MEQ PO BID, CAP 11/30/18 Furosemide* (Furosemide*) 40 Mg Tablet, 40 MG PO DAILY, TAB 11/30/18 Cyanocobalamin (B12 Health Booster) 1,000 Mcg/15 Ml Oral.susp, 5000 MCG PO DAILY 11/30/18 Atorvastatin Calcium (Atorvastatin Calcium) 10 Mg Tablet, 10 MG PO QHS, #30 TAB 11/30/18 Aspirin* (Devon Aspirin* Chew) 81 Mg Tab.chew, 81 MG PO BID, TAB.CHEW 11/30/18 Acetazolamide* (Acetazolamide*) 250 Mg Tablet, 250 MG PO DAILY, #60 TAB 11/30/18 Alendronate Sodium* (Fosamax*) 70 Mg Tablet, 70 MG PO Q7D, #4 TAB 11/30/18 Medications Current Medications Ondansetron HCl (Zofran Inj) 4 mg Q6H PRN IV NAUSEA AND/OR VOMITING; Start 11/26/18 at 01:00 Albuterol (Ventolin Hfa) 4 puff Q4H RESP THERAPY INH Last administered on 12/09/18 11:21; Admin Dose 4 PUFF; Start 11/26/18 at 01:00 Albuterol (Ventolin Hfa) 4 puff Q2H RESP THERAPY PRN INH SHORTNESS OF BREATH Last administered on 11/28/18 01:53; Admin Dose 4 PUFF; Start 11/26/18 at 01:00 Methylprednisolone Sodium Succinate (Solu-Medrol) 60 mg Q6 IV Last administered on 12/09/18 05:34; Admin Dose 60 MG; Start 11/26/18 at 06:00 Acetaminophen (Tylenol Liquid) 650 mg Q6H PRN PO PAIN LEVEL 1-3 OR FEVER; Start 11/26/18 at 01:00 Morphine Sulfate (morphine) 2 mg Q4H PRN IV PAIN LEVEL 7-10; Start 11/26/18 at 01:00 Lorazepam (Ativan) 1 mg Q2H PRN IV ANXIETY; Start 11/26/18 at 01:00 Enoxaparin Sodium (Lovenox) 40 mg DAILY SC Last administered on 12/09/18 09 :30; Admin Dose 40 MG; Start 11/26/18 at 09:00 Norepinephrine 250 ml @ 1.875 mls/ hr TITRATE IV Last administered on 12/06/18 23:16; Admin Dose 9.375 MLS/HR; Start 11/26/18 at 09:00 Insulin Aspart (Novolog Insulin Pen) NOVOLOG *MILD* ALGORI... Q4 SC Last administered on 12/09/18 09:31; Admin Dose 2 UNIT; Start 11/26/18 at 13:00 Phenylephrine HCl 40 mg/Dextrose 250 ml @ 37.5 mls/hr TITRATE IV Last administered on 11/30/18 02:35; Admin Dose 3 MLS/HR; Start 11/26/18 at 11:00 Fentanyl 100 ml @ 2.5 mls/hr TITRATE IV Last administered on 12/07/18 22:03; Admin Dose 5 MLS/HR; Start 11/26/18 at 13:00 IV Flush (NS 10 ml) 10 ml PRN PRN IV IV PROTOCOL; Start 11/26/18 at 15:00 Lansoprazole (Prevacid) 30 mg DAILY@06 GTB Last administered on 12/09/18 05:34; Admin Dose 30 MG; Start 11/28/18 at 06:00 Alendronate Sodium (Fosamax) 70 mg Mo@AC BREAKFAST PO Last administered on 12/09/18 05:34; Admin Dose 70 MG; Start 12/02/18 at 07:00 Furosemide (Lasix) 20 mg BID DIURETICS IV Last administered on 12/07/18at 05:39; Admin Dose 20 MG; Start 12/03/18 at 08:00; Status Hold Miscellaneous Information 1 ea NOTE XX ; Start 12/05/18 at 15:00 Glucose (Glutose) 15 gm Q15M PRN PO DECREASED GLUCOSE; Start 12/05/18 at 15:00 Glucose (Glutose) 22.5 gm Q15M PRN PO DECREASED GLUCOSE; Start 12/05/18 at 15:00 Dextrose (D50w Syringe) 25 ml Q15M PRN IV DECREASED GLUCOSE; Start 12/05/18 at 15:00 Dextrose (D50w Syringe) 50 ml Q15M PRN IV DECREASED GLUCOSE; Start 12/05/18 at 15:00 Glucagon (Glucagen) 1 mg Q15M PRN IM DECREASED GLUCOSE; Start 12/05/18 at 15:00 Glucose (Glutose) 15 gm Q15M PRN BUCCAL DECREASED GLUCOSE; Start 12/05/18 at 15:00 Insulin Glargine (Lantus) 12 units DAILY@1500 SC Last administered on 12/07/18at 14:36; Admin Dose 12 UNITS; Start 12/06/18 at 15:00 Calcitriol (Rocaltrol Liquid (Ped)) 0.25 mcg DAILY GTB Last administered on 12/09/18at 09:40; Admin Dose 0.25 MCG; Start 12/07/18 at 09:00 Midodrine (Proamatine) 10 mg TID@,,17 GTB Last administered on 12/09/18at 09:40; Admin Dose 10 MG; Start 12/07/18 at 09:00 Acetazolamide (Diamox) 500 mg DAILY IV Last administered on 12/09/18at 09:27; Admin Dose 500 MG; Start 12/09/18 at 09:00 Allergies: Coded Allergies: No Known Allergy (Unverified , 11/23/18) Social History Smoking Status: Never smoker Exam/Review of Systems Exam Vitals Vital Signs Date Temp Pulse Resp B/P (MAP) Pulse Ox O2 O2 Flow FiO2 Time Delivery Rate 12/09/18 82 12:00 12/09/18 18 98 30 11:09 12/09/18 113/68 Mechanical 06:00 (83) Ventilator 12/09/18 98.1 04:00 Intake and Output 12/08/18 12/08/18 12/09/18 1515:00 23:00 07:00 IntakeIntake Total 50 ml 360 ml 180 ml OutputOutput Total 353 ml 440 ml 240 ml BalanceBalance -303 ml -80 ml -60 ml Eyes: nl conjunctiva, EOMI, nl lids, nl sclera, PERRL ENMT: nl external ears & nose, nl lips & teeth, nl nasal mucosa & septum Neck: supple, non-tender Respiratory: clear to auscultation, normal air movement Cardiovascular: regular rate and rhythm, nl pulses Gastrointestinal: soft, nl liver, spleen, non-tender Results Result Diagram: 12/09/18 0300 12/09/18 0300 Results 24hrs Laboratory Tests Test 12/08/18 14:11 12/08/18 17:06 12/08/18 20:19 12/09/18 01:31 Bedside Glucose 94 99 145 183 Test 12/09/18 03:00 12/09/18 05:36 12/09/18 09:26 White Blood Count 8.2 # Red Blood Count 3.02 L Hemoglobin 8.7 L Hematocrit 27.9 L Mean Corpuscular 92.4 Volume Mean Corpuscular 28.8 L Hemoglobin Mean Corpuscular 31.2 L Hemoglobin Concent Red Cell 18.6 H Distribution Width Platelet Count 125 L Mean Platelet Volume 11.5 H Immature 1.100 H Granulocytes % Neutrophils % 94.3 H Lymphocytes % 1.1 L Monocytes % 3.4 Eosinophils % 0.0 Basophils % 0.1 Nucleated Red Blood 0.0 Cells % Immature 0.090 H Granulocytes # Neutrophils # 7.7 H Lymphocytes # 0.1 L Monocytes # 0.3 Eosinophils # 0.0 Basophils # 0.0 Nucleated Red Blood 0.0 Cells # Sodium Level 138 Potassium Level 4.1 Chloride Level 99 Carbon Dioxide Level 37 H Anion Gap 2 L Blood Urea Nitrogen 31 H Creatinine 0.43 L Est Glomerular Filtrat Rate mL/min Glucose Level 152 Lactic Acid Level 1.1 Calcium Level 7.9 L Phosphorus Level 3.4 Magnesium Level 2.4 Bedside Glucose 189 187 Medications Medication Current Medications Ondansetron HCl (Zofran Inj) 4 mg Q6H PRN IV NAUSEA AND/OR VOMITING; Start 11/26/18 at 01:00 Albuterol (Ventolin Hfa) 4 puff Q4H RESP THERAPY INH Last administered on 12/09/18 11:21; Admin Dose 4 PUFF; Start 11/26/18 at 01:00 Albuterol (Ventolin Hfa) 4 puff Q2H RESP THERAPY PRN INH SHORTNESS OF BREATH Last administered on 11/28/18 01:53; Admin Dose 4 PUFF; Start 11/26/18 at 01:00 Methylprednisolone Sodium Succinate (Solu-Medrol) 60 mg Q6 IV Last administered on 12/09/18 05:34; Admin Dose 60 MG; Start 11/26/18 at 06:00 Acetaminophen (Tylenol Liquid) 650 mg Q6H PRN PO PAIN LEVEL 1-3 OR FEVER; Start 11/26/18 at 01:00 Morphine Sulfate (morphine) 2 mg Q4H PRN IV PAIN LEVEL 7-10; Start 11/26/18 at 01:00 Lorazepam (Ativan) 1 mg Q2H PRN IV ANXIETY; Start 11/26/18 at 01:00 Enoxaparin Sodium (Lovenox) 40 mg DAILY SC Last administered on 12/09/18 09:30; Admin Dose 40 MG; Start 11/26/18 at 09:00 Norepinephrine 250 ml @ 1.875 mls/ hr TITRATE IV Last administered on 12/06/18 23:16; Admin Dose 9.375 MLS/HR; Start 11/26/18 at 09:00 Insulin Aspart (Novolog Insulin Pen) NOVOLOG *MILD* ALGORI... Q4 SC Last administered on 12/09/18 09:31; Admin Dose 2 UNIT; Start 11/26/18 at 13:00 Phenylephrine HCl 40 mg/Dextrose 250 ml @ 37.5 mls/hr TITRATE IV Last administered on 11/30/18 02:35; Admin Dose 3 MLS/HR; Start 11/26/18 at 11:00 Fentanyl 100 ml @ 2.5 mls/hr TITRATE IV Last administered on 12/07/18at 22:03; Admin Dose 5 MLS/HR; Start 11/26/18 at 13:00 IV Flush (NS 10 ml) 10 ml PRN PRN IV IV PROTOCOL; Start 11/26/18 at 15:00 Lansoprazole (Prevacid) 30 mg DAILY@06 GTB Last administered on 12/09/18 05:34; Admin Dose 30 MG; Start 11/28/18 at 06:00 Alendronate Sodium (Fosamax) 70 mg Mo@AC BREAKFAST PO Last administered on 12/09/18 05:34; Admin Dose 70 MG; Start 12/02/18 at 07:00 Furosemide (Lasix) 20 mg BID DIURETICS IV Last administered on 12/07/18at 05:39; Admin Dose 20 MG; Start 12/03/18 at 08:00; Status Hold Miscellaneous Information 1 ea NOTE XX ; Start 12/05/18 at 15:00 Glucose (Glutose) 15 gm Q15M PRN PO DECREASED GLUCOSE; Start 12/05/18 at 15:00 Glucose (Glutose) 22.5 gm Q15M PRN PO DECREASED GLUCOSE; Start 12/05/18 at 15:00 Dextrose (D50w Syringe) 25 ml Q15M PRN IV DECREASED GLUCOSE; Start 12/05/18 at 15:00 Dextrose (D50w Syringe) 50 ml Q15M PRN IV DECREASED GLUCOSE; Start 12/05/18 at 15:00 Glucagon (Glucagen) 1 mg Q15M PRN IM DECREASED GLUCOSE; Start 12/05/18 at 15:00 Glucose (Glutose) 15 gm Q15M PRN BUCCAL DECREASED GLUCOSE; Start 12/05/18 at 15:00 Insulin Glargine (Lantus) 12 units DAILY@1500 SC Last administered on 12/07/18at 14:36; Admin Dose 12 UNITS; Start 12/06/18 at 15:00 Calcitriol (Rocaltrol Liquid (Ped)) 0.25 mcg DAILY GTB Last administered on 12/09/18 09:40; Admin Dose 0.25 MCG; Start 12/07/18 at 09:00 Midodrine (Proamatine) 10 mg TID@,,17 GTB Last administered on 12/09/18at 09:40; Admin Dose 10 MG; Start 12/07/18 at 09:00 Acetazolamide (Diamox) 500 mg DAILY IV Last administered on 12/09/18at 09:27; Admin Dose 500 MG; Start 12/09/18 at 09:00 KIMBERLEY LARIOS MD Dec 09, 2018 13:13
[2018-12-09] MEDS: INSULIN GLARGINE [LANTus] (100 UNITS/ML) SYG SC SCH (17:30)
--- NOTE | 2018-12-09 18:40 | CONS ---
Consult Date/Type/Reason Admit Date/Time Nov 25, 2018 at 23:59 Initial Consult Date 11/26/18 Type of Consultation: cv Requesting Provider: SHAUN CHRISTENSEN DO Date/Time of Note DATE: 12/09/18 TIME: 18:39 Subjective Interventional cardiology follow-up progress note Subjective: Case discussed with staff and telemetry was reviewed. Patient remains in sinus rhythm with ventricular pacing. HR is STABLE now pt denies any chest pain or pressure Patient has remained intubated and has not been able to be weaned off the vent Objective: General: Elderly female cachectic looking appears to be older than stated age status post intubation on the vent HEENT: NC/AT. pupils are equal. round. NECK: NO JVD. no stridor. CV: RRR. systolic murmur; no gallop or rubs. PULM: no wheezing + rhonchi more on the right GI: SOFT, NT, ND, no rebound or guarding Extremity: 1+ B/L ANKLE edema. no clubbing. neuro: awake and follows command Psych: calm rectal: deferred : normal Chest x-ray 12/06/18 shows Overall, no significant change in appearance of multifocal bilateral pulmonary opacities and small pleural effusions CXR 4.27 1. Unchanged airspace opacities of the bilateral, right greater than left perihilar regions and lower lobes. 2. Stable small to moderate right and small left-sided pleural effusions. Echocardiogram was personally reviewed which showed normal LV size ejection fraction of about 45-50% EKG was personally reviewed which shows ventricular paced rhythm CT Chest 11/27: 1. Findings compatible with bilateral bronchiolitis and bronchopneumonia, greater on the right, significantly increased when compared to the prior CT. Mild bilateral pleural effusions, grossly stable. 2. Stable mild cardiomegaly. Coronary arterial and aortic atherosclerotic calcifications. 3. Lines and tubes in place, as above. 4. No evidence of mass or lymphadenopathy Objective Vitals Vital Signs Date Temp Pulse Resp B/P (MAP) Pulse Ox O2 O2 Flow FiO2 Time Delivery Rate 12/09/18 91 23 117/71 100 Mechanical 18:00 (86) Ventilator 12/09/18 30 16:58 12/09/18 97.9 16:00 Intake and Output 12/08/18 12/08/18 12/09/18 1515:00 23:00 07:00 IntakeIntake Total 50 ml 360 ml 180 ml OutputOutput Total 353 ml 440 ml 240 ml BalanceBalance -303 ml -80 ml -60 ml Results/Medications Result Diagram: 12/09/18 0300 12/09/18 0300 Results 24 hrs Laboratory Tests Test 12/08/18 20:19 12/09/18 01:31 12/09/18 03:00 12/09/18 03:30 Bedside Glucose 145 183 White Blood Count 8.2 # Red Blood Count 3.02 L Hemoglobin 8.7 L Hematocrit 27.9 L Mean Corpuscular 92.4 Volume Mean Corpuscular 28.8 L Hemoglobin Mean Corpuscular 31.2 L Hemoglobin Concent Red Cell 18.6 H Distribution Width Platelet Count 125 L Mean Platelet Volume 11.5 H Immature 1.100 H Granulocytes % Neutrophils % 94.3 H Lymphocytes % 1.1 L Monocytes % 3.4 Eosinophils % 0.0 Basophils % 0.1 Nucleated Red Blood 0.0 Cells % Immature 0.090 H Granulocytes # Neutrophils # 7.7 H Lymphocytes # 0.1 L Monocytes # 0.3 Eosinophils # 0.0 Basophils # 0.0 Nucleated Red Blood 0.0 Cells # Sodium Level 138 Potassium Level 4.1 Chloride Level 99 Carbon Dioxide Level 37 H Anion Gap 2 L Blood Urea Nitrogen 31 H Creatinine 0.43 L Est Glomerular Filtrat Rate mL/min Glucose Level 152 Lactic Acid Level 1.1 Calcium Level 7.9 L Phosphorus Level 3.4 Magnesium Level 2.4 Stool Occult Blood NEGATIVE Test 12/09/18 05:36 12/09/18 09:26 12/09/18 13:20 12/09/18 17:28 Bedside Glucose 189 187 168 180 Home Meds Reported Medications Acetaminophen* (Tylenol*) 325 Mg Tablet, 650 MG PO Q6H PRN for PAIN AND OR ELEVATED TEMP, TAB 11/30/18 Magnesium Oxide* (Mag-Oxide*) 400 Mg Tablet, 400 MG PO BID, TAB 11/30/18 Levothyroxine Sodium* (Synthroid*) 50 Mcg Tablet, 50 MCG PO BEFORE BREAKFAST, #30 TAB 11/30/18 Potassium Chloride* (Potassium Chloride*) 8 Meq Capsule.er, 10 MEQ PO BID, CAP 11/30/18 Furosemide* (Furosemide*) 40 Mg Tablet, 40 MG PO DAILY, TAB 11/30/18 Cyanocobalamin (B12 Health Booster) 1,000 Mcg/15 Ml Oral.susp, 5000 MCG PO DAILY 11/30/18 Atorvastatin Calcium (Atorvastatin Calcium) 10 Mg Tablet, 10 MG PO QHS, #30 TAB 11/30/18 Aspirin* (Devon Aspirin* Chew) 81 Mg Tab.chew, 81 MG PO BID, TAB.CHEW 11/30/18 Acetazolamide* (Acetazolamide*) 250 Mg Tablet, 250 MG PO DAILY, #60 TAB 11/30/18 Alendronate Sodium* (Fosamax*) 70 Mg Tablet, 70 MG PO Q7D, #4 TAB 11/30/18 Medications Current Medications Ondansetron HCl (Zofran Inj) 4 mg Q6H PRN IV NAUSEA AND/OR VOMITING; Start 11/26/18 at 01:00 Albuterol (Ventolin Hfa) 4 puff Q4H RESP THERAPY INH Last administered on 12/09/18at 18:29; Admin Dose 4 PUFF; Start 11/26/18 at 01:00 Albuterol (Ventolin Hfa) 4 puff Q2H RESP THERAPY PRN INH SHORTNESS OF BREATH Last administered on 11/28/18at 01:53; Admin Dose 4 PUFF; Start 11/26/18 at 01:00 Methylprednisolone Sodium Succinate (Solu-Medrol) 60 mg Q6 IV Last administered on 12/09/18at 17:34; Admin Dose 60 MG; Start 11/26/18 at 06:00 Acetaminophen (Tylenol Liquid) 650 mg Q6H PRN PO PAIN LEVEL 1-3 OR FEVER; Start 11/26/18 at 01:00 Morphine Sulfate (morphine) 2 mg Q4H PRN IV PAIN LEVEL 7-10; Start 11/26/18 at 01:00 Lorazepam (Ativan) 1 mg Q2H PRN IV ANXIETY; Start 11/26/18 at 01:00 Enoxaparin Sodium (Lovenox) 40 mg DAILY SC Last administered on 12/09/18at 09:30; Admin Dose 40 MG; Start 11/26/18 at 09:00 Norepinephrine 250 ml @ 1.875 mls/ hr TITRATE IV Last administered on 12/06/18at 23:16; Admin Dose 9.375 MLS/HR; Start 11/26/18 at 09:00 Insulin Aspart (Novolog Insulin Pen) NOVOLOG *MILD* ALGORI... Q4 SC Last administered on 12/09/18at 17:31; Admin Dose 1 UNIT; Start 11/26/18 at 13:00 Phenylephrine HCl 40 mg/Dextrose 250 ml @ 37.5 mls/hr TITRATE IV Last administered on 11/30/18at 02:35; Admin Dose 3 MLS/HR; Start 11/26/18 at 11:00 Fentanyl 100 ml @ 2.5 mls/hr TITRATE IV Last administered on 12/07/18at 22:03; Admin Dose 5 MLS/HR; Start 11/26/18 at 13:00 IV Flush (NS 10 ml) 10 ml PRN PRN IV IV PROTOCOL; Start 11/26/18 at 15:00 Lansoprazole (Prevacid) 30 mg DAILY@06 GTB Last administered on 12/09/18at 05:34; Admin Dose 30 MG; Start 11/28/18 at 06:00 Alendronate Sodium (Fosamax) 70 mg Mo@AC BREAKFAST PO Last administered on 12/09/18at 05:34; Admin Dose 70 MG; Start 12/02/18 at 07:00 Furosemide (Lasix) 20 mg BID DIURETICS IV Last administered on 12/07/18at 05:39; Admin Dose 20 MG; Start 12/03/18 at 08:00; Status Hold Miscellaneous Information 1 ea NOTE XX ; Start 12/05/18 at 15:00 Glucose (Glutose) 15 gm Q15M PRN PO DECREASED GLUCOSE; Start 12/05/18 at 15:00 Glucose (Glutose) 22.5 gm Q15M PRN PO DECREASED GLUCOSE; Start 12/05/18 at 15:00 Dextrose (D50w Syringe) 25 ml Q15M PRN IV DECREASED GLUCOSE; Start 12/05/18 at 15:00 Dextrose (D50w Syringe) 50 ml Q15M PRN IV DECREASED GLUCOSE; Start 12/05/18 at 15:00 Glucagon (Glucagen) 1 mg Q15M PRN IM DECREASED GLUCOSE; Start 12/05/18 at 15:00 Glucose (Glutose) 15 gm Q15M PRN BUCCAL DECREASED GLUCOSE; Start 12/05/18 at 15:00 Insulin Glargine (Lantus) 12 units DAILY@1500 SC Last administered on 12/09/18at 17:30; Admin Dose 12 UNITS; Start 12/06/18 at 15:00 Calcitriol (Rocaltrol Liquid (Ped)) 0.25 mcg DAILY GTB Last administered on 12/09/18 09:40; Admin Dose 0.25 MCG; Start 12/07/18 at 09:00 Midodrine (Proamatine) 10 mg TID@09,13,17 GTB Last administered on 12/09/18 17:28; Admin Dose 10 MG; Start 12/07/18 at 09:00 Acetazolamide (Diamox) 500 mg DAILY IV Last administered on 12/09/18 09:27; Admin Dose 500 MG; Start 12/09/18 at 09:00 Assessment/Plan Hospital Course (Demo Recall) Acute on chronic hypoxemic/hypercapnic respiratory failure status post intubation currently on the ventilator Shock: Appears to be septic Pneumonia Pleural effusion History of mitral valve replacement currently functioning normally History of most likely heart block status post permanent pacemaker ([employer]) Encephalopathy Cachexia and malnutrition History of rheumatoid arthritis History of ovarian cancer stage IV Thyroid disorder Acute renal failure Diabetes anemia Recommendations: Vent support to be continued to be managed as per pulmonary. weaning as tolerated. But may need to have tracheostomy done Antibiotic management as per internal medicine pulmonary and infectious disease consultants BP is stable now off pressors REPLACE Lytes prn . Diabetic management as per internal medicine GI and DVT prophylaxis lasix as per pulm rec Continue with ICU care may need trach if unable to extubate NAYLA SAUL MD [facility] NAYLA SAUL MD Dec 09, 2018 18:40
[2018-12-09] MEDS: FENTAnyl (DRIP) 1000 mcg/100mL 100 ML IV SCH (23:21)
[2018-12-10] VITALS (37 sets, daily range): BP systolic 78–124; BP diastolic 50–74; PULSE 62–81; RESP 16–29
[2018-12-10] MEDS: INSULIN ASPART [NOVOLOG] 3 ML PEN SC SCH ×6 (00:42→21:00)
[2018-12-10] MEDS: METHYLPREDNISOLONE 125 MG INJ IV SCH ×4 (00:43→17:33)
[2018-12-10] MEDS: ALBUTEROL HFA 8 GM INHALER INH SCH ×6 (01:01→21:30)
[2018-12-10] MEDS: LANSOPRAZOLE 30 MG CAP GTB SCH (05:48)
[2018-12-10] MEDS ORDERED: POTASSIUM CHLORIDE 100 ML IVPB ONE (06:47)
[2018-12-10] MEDS: POTASSIUM CHLORIDE 100 ML IVPB SCH ×3 (07:03→11:59)
--- NOTE | 2018-12-10 07:37 | CONS ---
Assessment/Plan Assessment/Plan Hospital Course (Demo Recall) 83 yo female with Vent dependent respiratory failure needs a PEG 1. Dysphasia -PEG placement today 2. Pneumonia -resp cx positive for E. Coli and Nicole albicans 3. UTI -Nicole albicans 4. Vent dependent respiratory failure -plan for trach 5. Anemia due to chronic disease -negative FOB 6. Diabetes mellitus 7. H/o ovarian cancer with total hysterectomy 20 years ago 8. Pacemaker status 9. H/O mitral valve replacement Plan: Replace K, check K after replacement Hold anti coagulants PEG today at bedside NPO for procedure Pt examined and plan of care discussed with Dr. Da Silva Consultation Date/Type/Reason Admit Date/Time Nov 25, 2018 at 23:59 Date/Time of Note DATE: 12/10/18 TIME: 07:18 Hx of Present Illness 83 yo female with PMH of ovarian cancer stage IV (20 yrs ago), hysterectomy total, CHF CAD, mitral valve replacement, pacemaker, sleep apnea presented to OSH with pneumonia, stabilized and transferred to [place] where she had respiratory failure and transferred to ICU. She is now off Levophed gtt, on midodrine. On Fentanyl gtt. Intubated. K is low and is getting replaced with 60 meq of KCl. INR 1.06. We have been consulted for PEG placement. Past Medical History Home Meds Reported Medications Acetaminophen* (Tylenol*) 325 Mg Tablet, 650 MG PO Q6H PRN for PAIN AND OR ELEVATED TEMP, TAB 11/30/18 Magnesium Oxide* (Mag-Oxide*) 400 Mg Tablet, 400 MG PO BID, TAB 11/30/18 Levothyroxine Sodium* (Synthroid*) 50 Mcg Tablet, 50 MCG PO BEFORE BREAKFAST, #30 TAB 11/30/18 Potassium Chloride* (Potassium Chloride*) 8 Meq Capsule.er, 10 MEQ PO BID, CAP 11/30/18 Furosemide* (Furosemide*) 40 Mg Tablet, 40 MG PO DAILY, TAB 11/30/18 Cyanocobalamin (B12 Health Booster) 1,000 Mcg/15 Ml Oral.susp, 5000 MCG PO DAILY 11/30/18 Atorvastatin Calcium (Atorvastatin Calcium) 10 Mg Tablet, 10 MG PO QHS, #30 TAB 11/30/18 Aspirin* (Devon Aspirin* Chew) 81 Mg Tab.chew, 81 MG PO BID, TAB.CHEW 11/30/18 Acetazolamide* (Acetazolamide*) 250 Mg Tablet, 250 MG PO DAILY, #60 TAB 11/30/18 Alendronate Sodium* (Fosamax*) 70 Mg Tablet, 70 MG PO Q7D, #4 TAB 11/30/18 Medications Current Medications Ondansetron HCl (Zofran Inj) 4 mg Q6H PRN IV NAUSEA AND/OR VOMITING; Start 11/26/18 at 01:00 Albuterol (Ventolin Hfa) 4 puff Q4H RESP THERAPY INH Last administered on 12/10/18 05:02; Admin Dose 4 PUFF; Start 11/26/18 at 01:00 Albuterol (Ventolin Hfa) 4 puff Q2H RESP THERAPY PRN INH SHORTNESS OF BREATH Last administered on 11/28/18at 01:53; Admin Dose 4 PUFF; Start 11/26/18 at 01:00 Methylprednisolone Sodium Succinate (Solu-Medrol) 60 mg Q6 IV Last administered on 12/10/18 05:48; Admin Dose 60 MG; Start 11/26/18 at 06:00 Acetaminophen (Tylenol Liquid) 650 mg Q6H PRN PO PAIN LEVEL 1-3 OR FEVER; Start 11/26/18 at 01:00 Morphine Sulfate (morphine) 2 mg Q4H PRN IV PAIN LEVEL 7-10; Start 11/26/18 at 01:00 Lorazepam (Ativan) 1 mg Q2H PRN IV ANXIETY; Start 11/26/18 at 01:00 Enoxaparin Sodium (Lovenox) 40 mg DAILY SC Last administered on 12/09/18 09:30; Admin Dose 40 MG; Start 11/26/18 at 09:00; Status Hold Norepinephrine 250 ml @ 1.875 mls/ hr TITRATE IV Last administered on 12/06/18 23:16; Admin Dose 9.375 MLS/HR; Start 11/26/18 at 09:00 Insulin Aspart (Novolog Insulin Pen) NOVOLOG *MILD* ALGORI... Q4 SC Last administered on 12/09/18at 20:43; Admin Dose 1 UNIT; Start 11/26/18 at 13:00 Phenylephrine HCl 40 mg/Dextrose 250 ml @ 37.5 mls/hr TITRATE IV Last administered on 11/30/18at 02:35; Admin Dose 3 MLS/HR; Start 11/26/18 at 11:00 Fentanyl 100 ml @ 2.5 mls/hr TITRATE IV Last administered on 12/09/18at 23:21; Admin Dose 5 MLS/HR; Start 11/26/18 at 13:00 IV Flush (NS 10 ml) 10 ml PRN PRN IV IV PROTOCOL; Start 11/26/18 at 15:00 Lansoprazole (Prevacid) 30 mg DAILY@06 GTB Last administered on 12/10/18at 05:48; Admin Dose 30 MG; Start 11/28/18 at 06:00 Alendronate Sodium (Fosamax) 70 mg Mo@AC BREAKFAST PO Last administered on 12/09/18at 05:34; Admin Dose 70 MG; Start 12/02/18 at 07:00 Furosemide (Lasix) 20 mg BID DIURETICS IV Last administered on 12/07/18at 05:39; Admin Dose 20 MG; Start 12/03/18 at 08:00; Status Hold Miscellaneous Information 1 ea NOTE XX ; Start 12/05/18 at 15:00 Glucose (Glutose) 15 gm Q15M PRN PO DECREASED GLUCOSE; Start 12/05/18 at 15:00 Glucose (Glutose) 22.5 gm Q15M PRN PO DECREASED GLUCOSE; Start 12/05/18 at 15:00 Dextrose (D50w Syringe) 25 ml Q15M PRN IV DECREASED GLUCOSE; Start 12/05/18 at 15:00 Dextrose (D50w Syringe) 50 ml Q15M PRN IV DECREASED GLUCOSE; Start 12/05/18 at 15:00 Glucagon (Glucagen) 1 mg Q15M PRN IM DECREASED GLUCOSE; Start 12/05/18 at 15:00 Glucose (Glutose) 15 gm Q15M PRN BUCCAL DECREASED GLUCOSE; Start 12/05/18 at 15:00 Insulin Glargine (Lantus) 12 units DAILY@1500 SC Last administered on 12/09/18at 17:30; Admin Dose 12 UNITS; Start 12/06/18 at 15:00 Calcitriol (Rocaltrol Liquid (Ped)) 0.25 mcg DAILY GTB Last administered on 12/09/18at 09:40; Admin Dose 0.25 MCG; Start 12/07/18 at 09:00 Midodrine (Proamatine) 10 mg TID@,,17 GTB Last administered on 12/09/18at 17:28; Admin Dose 10 MG; Start 12/07/18 at 09:00 Acetazolamide (Diamox) 500 mg DAILY IV Last administered on 12/09/18at 09:27; Admin Dose 500 MG; Start 12/09/18 at 09:00 Potassium Chloride 100 ml @ 50 mls/hr Q2H IVPB Last administered on 12/10/18at 07:03; Admin Dose 50 MLS/HR; Start 12/10/18 at 07:00; Stop 12/10/18 at 12:59 Allergies: Coded Allergies: No Known Allergy (Unverified , 11/23/18) Social History Smoking Status: Never smoker Exam/Review of Systems Exam Vitals Vital Signs Date Temp Pulse Resp B/P (MAP) Pulse Ox O2 O2 Flow FiO2 Time Delivery Rate 12/10/18 62 18 101/57 99 Mechanical 06:00 (72) Ventilator 12/10/18 30 05:02 12/10/18 97.9 04:00 Intake and Output 12/09/18 12/09/18 12/10/18 1414:59 22:59 06:59 IntakeIntake Total 250.5 ml 410 ml 100 ml OutputOutput Total 315 ml 610 ml 485 ml BalanceBalance -64.5 ml -200 ml -385 ml Constitutional: alert Psych: no complaints Head: normocephalic Eyes: nl sclera, PERRL ENMT: intubated Respiratory: other (RLL rhonchi and diminished, all other lobes cta) Cardiovascular: regular rate and rhythm Gastrointestinal: soft, non-tender, bowel sounds Extremities: normal pulses Neurological: nl mental status Results Result Diagram: 12/10/18 0438 12/10/18 0438 Results 24hrs Laboratory Tests Test 12/09/18 09:26 12/09/18 13:20 12/09/18 17:28 12/09/18 20:32 Bedside Glucose 187 168 180 151 Test 12/10/18 00:42 12/10/18 03:30 12/10/18 04:38 12/10/18 05:51 Bedside Glucose 105 98 Prothrombin Time 13.9 Prothrombin Time 1.1 Ratio INR International 1.06 Normalized Ratio Activated 27.5 Partial Thromboplast Time White Blood Count 7.7 Red Blood Count 2.75 L Hemoglobin 7.9 L Hematocrit 24.9 L Mean Corpuscular 90.5 Volume Mean Corpuscular 28.7 L Hemoglobin Mean Corpuscular 31.7 L Hemoglobin Concent Red Cell 18.8 H Distribution Width Platelet Count 112 L Mean Platelet Volume 11.7 H Immature 0.400 Granulocytes % Neutrophils % 95.4 H Lymphocytes % 1.2 L Monocytes % 2.9 Eosinophils % 0.0 Basophils % 0.1 Nucleated Red Blood 0.0 Cells % Immature 0.030 Granulocytes # Neutrophils # 7.3 Lymphocytes # 0.1 L Monocytes # 0.2 L Eosinophils # 0.0 Basophils # 0.0 Nucleated Red Blood 0.0 Cells # Sodium Level 138 Potassium Level 2.8 *L Chloride Level 102 Carbon Dioxide Level 34 H Anion Gap 2 L Blood Urea Nitrogen 29 H Creatinine 0.41 L Est Glomerular Filtrat Rate mL/min Glucose Level 84 # Calcium Level 7.5 L Phosphorus Level 3.2 Magnesium Level 2.2 Medications Medication Current Medications Ondansetron HCl (Zofran Inj) 4 mg Q6H PRN IV NAUSEA AND/OR VOMITING; Start 11/26/18 at 01:00 Albuterol (Ventolin Hfa) 4 puff Q4H RESP THERAPY INH Last administered on 12/10/18at 05:02; Admin Dose 4 PUFF; Start 11/26/18 at 01:00 Albuterol (Ventolin Hfa) 4 puff Q2H RESP THERAPY PRN INH SHORTNESS OF BREATH Last administered on 11/28/18at 01:53; Admin Dose 4 PUFF; Start 11/26/18 at 01:00 Methylprednisolone Sodium Succinate (Solu-Medrol) 60 mg Q6 IV Last administered on 12/10/18at 05:48; Admin Dose 60 MG; Start 11/26/18 at 06:00 Acetaminophen (Tylenol Liquid) 650 mg Q6H PRN PO PAIN LEVEL 1-3 OR FEVER; Start 11/26/18 at 01:00 Morphine Sulfate (morphine) 2 mg Q4H PRN IV PAIN LEVEL 7-10; Start 11/26/18 at 01:00 Lorazepam (Ativan) 1 mg Q2H PRN IV ANXIETY; Start 11/26/18 at 01:00 Enoxaparin Sodium (Lovenox) 40 mg DAILY SC Last administered on 12/09/18at 09:30; Admin Dose 40 MG; Start 11/26/18 at 09:00; Status Hold Norepinephrine 250 ml @ 1.875 mls/ hr TITRATE IV Last administered on 12/06/18at 23:16; Admin Dose 9.375 MLS/HR; Start 11/26/18 at 09:00 Insulin Aspart (Novolog Insulin Pen) NOVOLOG *MILD* ALGORI... Q4 SC Last administered on 12/09/18at 20:43; Admin Dose 1 UNIT; Start 11/26/18 at 13:00 Phenylephrine HCl 40 mg/Dextrose 250 ml @ 37.5 mls/hr TITRATE IV Last administered on 11/30/18at 02:35; Admin Dose 3 MLS/HR; Start 11/26/18 at 11:00 Fentanyl 100 ml @ 2.5 mls/hr TITRATE IV Last administered on 12/09/18at 23:21; Admin Dose 5 MLS/HR; Start 11/26/18 at 13:00 IV Flush (NS 10 ml) 10 ml PRN PRN IV IV PROTOCOL; Start 11/26/18 at 15:00 Lansoprazole (Prevacid) 30 mg DAILY@06 GTB Last administered on 12/10/18at 05:48; Admin Dose 30 MG; Start 11/28/18 at 06:00 Alendronate Sodium (Fosamax) 70 mg Mo@AC BREAKFAST PO Last administered on 12/09/18at 05:34; Admin Dose 70 MG; Start 12/02/18 at 07:00 Furosemide (Lasix) 20 mg BID DIURETICS IV Last administered on 12/07/18at 05:39; Admin Dose 20 MG; Start 12/03/18 at 08:00; Status Hold Miscellaneous Information 1 ea NOTE XX ; Start 12/05/18 at 15:00 Glucose (Glutose) 15 gm Q15M PRN PO DECREASED GLUCOSE; Start 12/05/18 at 15:00 Glucose (Glutose) 22.5 gm Q15M PRN PO DECREASED GLUCOSE; Start 12/05/18 at 15:00 Dextrose (D50w Syringe) 25 ml Q15M PRN IV DECREASED GLUCOSE; Start 12/05/18 at 15:00 Dextrose (D50w Syringe) 50 ml Q15M PRN IV DECREASED GLUCOSE; Start 12/05/18 at 15:00 Glucagon (Glucagen) 1 mg Q15M PRN IM DECREASED GLUCOSE; Start 12/05/18 at 15:00 Glucose (Glutose) 15 gm Q15M PRN BUCCAL DECREASED GLUCOSE; Start 12/05/18 at 15:00 Insulin Glargine (Lantus) 12 units DAILY@1500 SC Last administered on 12/09/18at 17:30; Admin Dose 12 UNITS; Start 12/06/18 at 15:00 Calcitriol (Rocaltrol Liquid (Ped)) 0.25 mcg DAILY GTB Last administered on 12/09/18at 09:40; Admin Dose 0.25 MCG; Start 12/07/18 at 09:00 Midodrine (Proamatine) 10 mg TID@09,13,17 GTB Last administered on 12/09/18at 17:28; Admin Dose 10 MG; Start 12/07/18 at 09:00 Acetazolamide (Diamox) 500 mg DAILY IV Last administered on 12/09/18 09:27; Admin Dose 500 MG; Start 12/09/18 at 09:00 Potassium Chloride 100 ml @ 50 mls/hr Q2H IVPB Last administered on 12/10/18at 07:03; Admin Dose 50 MLS/HR; Start 12/10/18 at 07:00; Stop 12/10/18 at 12:59 JOSUE HASTINGS Dec 10, 2018 07:30
--- NOTE | 2018-12-10 08:26 | PN ---
DATE: 12/10/2018 SUBJECTIVE: The patient is pending percutaneous endoscopic gastrostomy and trach placement. The izzy pagan's family after discussion yesterday with pulmonary has agreed for trach and percutaneous endosco pic gastrostomy placement. No other events noted. OBJECTIVE: VITAL SIGNS: Blood pressure is 101/57, respirations 18, pulse 62, temperature 97.9. HEENT: Head is normocephalic. NECK: Supple. HEART: Regular rate. LUNGS: Show diminished breath sounds at the base. ABDOMEN: Soft, nontender to palpation. No rebound or guarding. EXTREMITIES: Negative for clubbing, cyanosis. Positive edema. DERMATOLOGIC: No rashes. MUSCULOSKELETAL: No joint effusion. NEUROLOGIC: No change in exam. MEDICATIONS: Reviewed. LABORATORY DATA: Reviewed. IMAGING STUDIES: Reviewed. X-rays have been reviewed. MICROBIOLOGY: Cultures have been reviewed. ASSESSMENT AND PLAN: 1. Sepsis secondary to pneumonia, bacteremia, fungal urinary tract infection. The patient is curren tly off pressor support. Continue current medical regimen. Continue antimicrobial antifungal therap y. Follow up with infectious disease. 2. Ventilator-dependent respiratory failure. The patient has failed multiple weaning trials and is pending trach placement. 3. Dysphagia. The patient is pending percutaneous endoscopic gastrostomy tube placement per GI. 4. Volume overload. Continue diuretic therapy as tolerated. Monitor electrolytes closely. 5. Hypokalemia. We will replete with potassium chloride 60 mEq. Repeat potassium level. 6. Metabolic alkalemia secondary to diuretic therapy, hypokalemia, improving. We will continue inte rmittent Diamox. 7. Anemia. Monitor hemoglobin and hematocrit levels. 8. Mineral bone disorder. Monitor calcium and phosphorus levels. 9. Nonoliguric acute kidney injury, etiology is secondary to hemodynamics. Renal function is improv ed. Continue to monitor. 10. Non-ST elevation myocardial infarction. Continue medical management. 11. History of arrhythmia, status post pacemaker. 12. Diabetes. Glucose levels have improved. Continue current insulin regimen, adjust as needed. 13. History of ovarian cancer stage IV, status post chemotherapy and debulking surgery. 14. History of hypothyroidism. 15. History of arthritis. 16. Gastrointestinal and deep vein thrombosis prophylaxis. Dictated By: SHAUN CHRISTENSEN DO NR/NTS Conf#: [id number] DID#: [id number] CC: STEVIE REN MD; JESS SAUCEDO MD;*End*
[2018-12-10] MEDS: BALSAM PERU/CASTOR OIL 60 GM TUBE TOP SCH (08:50)
[2018-12-10] MEDS: CALCITRIOL (1 MCG/ML PO SYG) GTB SCH (08:50)
[2018-12-10] MEDS: MIDODRINE 5 MG TAB GTB SCH ×3 (08:51→17:33)
--- NOTE | 2018-12-10 09:15 | CONS ---
Consult Date/Type/Reason Admit Date/Time Nov 25, 2018 at 23:59 Initial Consult Date 11/26/18 Type of Consultation: cv Requesting Provider: SHAUN CHRISTENSEN DO Date/Time of Note DATE: 12/10/18 TIME: 09:10 Subjective Interventional cardiology follow-up progress note Subjective: Case discussed with staff and telemetry was reviewed. Patient remains in sinus rhythm with ventricular pacing. HR is STABLE now pt denies any chest pain or pressure Patient has remained intubated and has not been able to be weaned off the vent d/w physicians Objective: General: Elderly female cachectic looking appears to be older than stated age status post intubation on the vent HEENT: NC/AT. pupils are equal. round. NECK: NO JVD. no stridor. CV: RRR. systolic murmur; no gallop or rubs. PULM: no wheezing + rhonchi more on the right GI: SOFT, NT, ND, no rebound or guarding Extremity: 1+ B/L ANKLE edema. no clubbing. neuro: awake and apears alert follows command Psych: calm rectal: deferred : normal Chest x-ray 12/06/18 shows Overall, no significant change in appearance of multifocal bilateral pulmonary opacities and small pleural effusions CXR 4.27 1. Unchanged airspace opacities of the bilateral, right greater than left perihilar regions and lower lobes. 2. Stable small to moderate right and small left-sided pleural effusions. Echocardiogram was personally reviewed which showed normal LV size ejection fraction of about 45-50% EKG was personally reviewed which shows ventricular paced rhythm CT Chest 11/27: 1. Findings compatible with bilateral bronchiolitis and bronchopneumonia, greater on the right, significantly increased when compared to the prior CT. Mild bilateral pleural effusions, grossly stable. 2. Stable mild cardiomegaly. Coronary arterial and aortic atherosclerotic calcifications. 3. Lines and tubes in place, as above. 4. No evidence of mass or lymphadenopathy Objective Vitals Vital Signs Date Temp Pulse Resp B/P (MAP) Pulse Ox O2 O2 Flow FiO2 Time Delivery Rate 12/10/18 68 22 99 30 08:05 12/10/18 101/57 Mechanical 06:00 (72) Ventilator 12/10/18 97.9 04:00 Intake and Output 12/09/18 12/09/18 12/10/18 1515:00 23:00 07:00 IntakeIntake Total 225 ml 440 ml 65 ml OutputOutput Total 305 ml 610 ml 445 ml BalanceBalance -80 ml -170 ml -380 ml Results/Medications Result Diagram: 12/10/18 0438 12/10/18 0438 Results 24 hrs Laboratory Tests Test 12/09/18 09:26 12/09/18 13:20 12/09/18 17:28 12/09/18 20:32 Bedside Glucose 187 168 180 151 Test 12/10/18 00:42 12/10/18 03:30 12/10/18 04:38 12/10/18 05:51 Bedside Glucose 105 98 Prothrombin Time 13.9 Prothrombin Time 1.1 Ratio INR International 1.06 Normalized Ratio Activated 27.5 Partial Thromboplast Time White Blood Count 7.7 Red Blood Count 2.75 L Hemoglobin 7.9 L Hematocrit 24.9 L Mean Corpuscular 90.5 Volume Mean Corpuscular 28.7 L Hemoglobin Mean Corpuscular 31.7 L Hemoglobin Concent Red Cell 18.8 H Distribution Width Platelet Count 112 L Mean Platelet Volume 11.7 H Immature 0.400 Granulocytes % Neutrophils % 95.4 H Lymphocytes % 1.2 L Monocytes % 2.9 Eosinophils % 0.0 Basophils % 0.1 Nucleated Red Blood 0.0 Cells % Immature 0.030 Granulocytes # Neutrophils # 7.3 Lymphocytes # 0.1 L Monocytes # 0.2 L Eosinophils # 0.0 Basophils # 0.0 Nucleated Red Blood 0.0 Cells # Sodium Level 138 Potassium Level 2.8 *L Chloride Level 102 Carbon Dioxide Level 34 H Anion Gap 2 L Blood Urea Nitrogen 29 H Creatinine 0.41 L Est Glomerular Filtrat Rate mL/min Glucose Level 84 # Calcium Level 7.5 L Phosphorus Level 3.2 Magnesium Level 2.2 Test 12/10/18 08:48 Bedside Glucose 99 Home Meds Reported Medications Acetaminophen* (Tylenol*) 325 Mg Tablet, 650 MG PO Q6H PRN for PAIN AND OR ELEVATED TEMP, TAB 11/30/18 Magnesium Oxide* (Mag-Oxide*) 400 Mg Tablet, 400 MG PO BID, TAB 11/30/18 Levothyroxine Sodium* (Synthroid*) 50 Mcg Tablet, 50 MCG PO BEFORE BREAKFAST, #30 TAB 11/30/18 Potassium Chloride* (Potassium Chloride*) 8 Meq Capsule.er, 10 MEQ PO BID, CAP 11/30/18 Furosemide* (Furosemide*) 40 Mg Tablet, 40 MG PO DAILY, TAB 11/30/18 Cyanocobalamin (B12 Health Booster) 1,000 Mcg/15 Ml Oral.susp, 5000 MCG PO DAILY 11/30/18 Atorvastatin Calcium (Atorvastatin Calcium) 10 Mg Tablet, 10 MG PO QHS, #30 TAB 11/30/18 Aspirin* (Devon Aspirin* Chew) 81 Mg Tab.chew, 81 MG PO BID, TAB.CHEW 11/30/18 Acetazolamide* (Acetazolamide*) 250 Mg Tablet, 250 MG PO DAILY, #60 TAB 11/30/18 Alendronate Sodium* (Fosamax*) 70 Mg Tablet, 70 MG PO Q7D, #4 TAB 11/30/18 Medications Current Medications Ondansetron HCl (Zofran Inj) 4 mg Q6H PRN IV NAUSEA AND/OR VOMITING; Start 11/26/18 at 01:00 Albuterol (Ventolin Hfa) 4 puff Q4H RESP THERAPY INH Last administered on 12/10/18at 08:05; Admin Dose 4 PUFF; Start 11/26/18 at 01:00 Albuterol (Ventolin Hfa) 4 puff Q2H RESP THERAPY PRN INH SHORTNESS OF BREATH Last administered on 11/28/18at 01:53; Admin Dose 4 PUFF; Start 11/26/18 at 01:00 Methylprednisolone Sodium Succinate (Solu-Medrol) 60 mg Q6 IV Last administered on 12/10/18at 05:48; Admin Dose 60 MG; Start 11/26/18 at 06:00 Acetaminophen (Tylenol Liquid) 650 mg Q6H PRN PO PAIN LEVEL 1-3 OR FEVER; Start 11/26/18 at 01:00 Morphine Sulfate (morphine) 2 mg Q4H PRN IV PAIN LEVEL 7-10; Start 11/26/18 at 01:00 Lorazepam (Ativan) 1 mg Q2H PRN IV ANXIETY; Start 11/26/18 at 01:00 Enoxaparin Sodium (Lovenox) 40 mg DAILY SC Last administered on 12/09/18at 0 9:30; Admin Dose 40 MG; Start 11/26/18 at 09:00; Status Hold Norepinephrine 250 ml @ 1.875 mls/ hr TITRATE IV Last administered on 12/06/18at 23:16; Admin Dose 9.375 MLS/HR; Start 11/26/18 at 09:00 Insulin Aspart (Novolog Insulin Pen) NOVOLOG *MILD* ALGORI... Q4 SC Last administered on 12/09/18at 20:43; Admin Dose 1 UNIT; Start 11/26/18 at 13:00 Phenylephrine HCl 40 mg/Dextrose 250 ml @ 37.5 mls/hr TITRATE IV Last administered on 11/30/18at 02:35; Admin Dose 3 MLS/HR; Start 11/26/18 at 11:00 Fentanyl 100 ml @ 2.5 mls/hr TITRATE IV Last administered on 12/09/18at 23:21; Admin Dose 5 MLS/HR; Start 11/26/18 at 13:00 IV Flush (NS 10 ml) 10 ml PRN PRN IV IV PROTOCOL; Start 11/26/18 at 15:00 Lansoprazole (Prevacid) 30 mg DAILY@06 GTB Last administered on 12/10/18at 05:48; Admin Dose 30 MG; Start 11/28/18 at 06:00 Alendronate Sodium (Fosamax) 70 mg Mo@AC BREAKFAST PO Last administered on 12/09/18at 05:34; Admin Dose 70 MG; Start 12/02/18 at 07:00 Furosemide (Lasix) 20 mg BID DIURETICS IV Last administered on 12/07/18at 05:39; Admin Dose 20 MG; Start 12/03/18 at 08:00; Status Hold Miscellaneous Information 1 ea NOTE XX ; Start 12/05/18 at 15:00 Glucose (Glutose) 15 gm Q15M PRN PO DECREASED GLUCOSE; Start 12/05/18 at 15:00 Glucose (Glutose) 22.5 gm Q15M PRN PO DECREASED GLUCOSE; Start 12/05/18 at 15:00 Dextrose (D50w Syringe) 25 ml Q15M PRN IV DECREASED GLUCOSE; Start 12/05/18 at 15:00 Dextrose (D50w Syringe) 50 ml Q15M PRN IV DECREASED GLUCOSE; Start 12/05/18 at 15:00 Glucagon (Glucagen) 1 mg Q15M PRN IM DECREASED GLUCOSE; Start 12/05/18 at 15:00 Glucose (Glutose) 15 gm Q15M PRN BUCCAL DECREASED GLUCOSE; Start 12/05/18 at 15:00 Insulin Glargine (Lantus) 12 units DAILY@1500 SC Last administered on 12/09/18 17:30; Admin Dose 12 UNITS; Start 12/06/18 at 15:00 Calcitriol (Rocaltrol Liquid (Ped)) 0.25 mcg DAILY GTB Last administered on 12/10/18 08:50; Admin Dose 0.25 MCG; Start 12/07/18 at 09:00 Midodrine (Proamatine) 10 mg TID@09,13,17 GTB Last administered on 12/10/18 08:51; Admin Dose 10 MG; Start 12/07/18 at 09:00 Acetazolamide (Diamox) 500 mg DAILY IV Last administered on 12/09/18 09:27; Admin Dose 500 MG; Start 12/09/18 at 09:00; Status Hold Potassium Chloride 100 ml @ 50 mls/hr Q2H IVPB Last administered on 12/10/18 07:03; Admin Dose 50 MLS/HR; Start 12/10/18 at 07:00; Stop 12/10/18 at 12:59 Assessment/Plan Hospital Course (Demo Recall) Acute on chronic hypoxemic/hypercapnic respiratory failure status post intubation currently on the ventilator Shock: Appears to be septic Pneumonia Pleural effusion History of mitral valve replacement currently functioning normally History of most likely heart block status post permanent pacemaker (FinalCAD) Encephalopathy Cachexia and malnutrition History of rheumatoid arthritis History of ovarian cancer stage IV Thyroid disorder Acute renal failure: stable now Diabetes anemia hypo K Recommendations: Vent support to be continued to be managed as per pulmonary. weaning as tolerated. But may need to have tracheostomy done Antibiotic management as per internal medicine pulmonary and infectious disease consultants BP is stable now off pressors REPLACE Lytes prn . will give more Kcl Diabetic management as per internal medicine GI and DVT prophylaxis lasix as per pulm rec Continue with ICU care may need trach if unable to extubate NAYLA SAUL MD [facility] NAYLA SAUL MD Dec 10, 2018 09:15
--- NOTE | 2018-12-10 10:09 | PREAC ---
Date/Time of Note Date/Time of Note DATE: 12/10/18 TIME: 10:06 Anesthesia Eval and Record Evaluation Time Pre-Procedure Interview DATE: 12/10/18 TIME: 10:06 Age 83 Sex female NPO: 8 hrs Preoperative diagnosis Dysphagia Planned procedure EGD and peg tube placement Past Medical History Past Medical History: Includes Cardio: Dyslipidemia Endo: Hypothyroid Surgery & Anesthesia Issues No known issue Meds Anticoagulation: Yes Beta Tila within 24 hr: No Reason Beta Tila not given: Pt. not on B-Tila Reported Medications Acetaminophen* (Tylenol*) 325 Mg Tablet, 650 MG PO Q6H PRN for PAIN AND OR ELEVATED TEMP, TAB 11/30/18 Magnesium Oxide* (Mag-Oxide*) 400 Mg Tablet, 400 MG PO BID, TAB 11/30/18 Levothyroxine Sodium* (Synthroid*) 50 Mcg Tablet, 50 MCG PO BEFORE BREAKFAST, #30 TAB 11/30/18 Potassium Chloride* (Potassium Chloride*) 8 Meq Capsule.er, 10 MEQ PO BID, CAP 11/30/18 Furosemide* (Furosemide*) 40 Mg Tablet, 40 MG PO DAILY, TAB 11/30/18 Cyanocobalamin (B12 Health Booster) 1,000 Mcg/15 Ml Oral.susp, 5000 MCG PO DAILY 11/30/18 Atorvastatin Calcium (Atorvastatin Calcium) 10 Mg Tablet, 10 MG PO QHS, #30 TAB 11/30/18 Aspirin* (Devon Aspirin* Chew) 81 Mg Tab.chew, 81 MG PO BID, TAB.CHEW 11/30/18 Acetazolamide* (Acetazolamide*) 250 Mg Tablet, 250 MG PO DAILY, #60 TAB 11/30/18 Alendronate Sodium* (Fosamax*) 70 Mg Tablet, 70 MG PO Q7D, #4 TAB 11/30/18 Current Medications Ondansetron HCl (Zofran Inj) 4 mg Q6H PRN IV NAUSEA AND/OR VOMITING; Start 11/26/18 at 01:00 Albuterol (Ventolin Hfa) 4 puff Q4H RESP THERAPY INH Last administered on 12/10/18at 08:05; Admin Dose 4 PUFF; Start 11/26/18 at 01:00 Albuterol (Ventolin Hfa) 4 puff Q2H RESP THERAPY PRN INH SHORTNESS OF BREATH Last administered on 11/28/18at 01:53; Admin Dose 4 PUFF; Start 11/26/18 at 01:00 Methylprednisolone Sodium Succinate (Solu-Medrol) 60 mg Q6 IV Last administered on 12/10/18 05:48; Admin Dose 60 MG; Start 11/26/18 at 06:00 Acetaminophen (Tylenol Liquid) 650 mg Q6H PRN PO PAIN LEVEL 1-3 OR FEVER; Start 11/26/18 at 01:00 Morphine Sulfate (morphine) 2 mg Q4H PRN IV PAIN LEVEL 7-10; Start 11/26/18 at 01:00 Lorazepam (Ativan) 1 mg Q2H PRN IV ANXIETY; Start 11/26/18 at 01:00 Enoxaparin Sodium (Lovenox) 40 mg DAILY SC Last administered on 12/09/18 09:30; Admin Dose 40 MG; Start 11/26/18 at 09:00; Status Hold Norepinephrine 250 ml @ 1.875 mls/ hr TITRATE IV Last administered on 12/06/18 23:16; Admin Dose 9.375 MLS/HR; Start 11/26/18 at 09:00 Insulin Aspart (Novolog Insulin Pen) NOVOLOG *MILD* ALGORI... Q4 SC Last administered on 12/09/18 20:43; Admin Dose 1 UNIT; Start 11/26/18 at 13:00 Phenylephrine HCl 40 mg/Dextrose 250 ml @ 37.5 mls/hr TITRATE IV Last administered on 11/30/18at 02:35; Admin Dose 3 MLS/HR; Start 11/26/18 at 11:00 Fentanyl 100 ml @ 2.5 mls/hr TITRATE IV Last administered on 12/09/18 23:21; Admin Dose 5 MLS/HR; Start 11/26/18 at 13:00 IV Flush (NS 10 ml) 10 ml PRN PRN IV IV PROTOCOL; Start 11/26/18 at 15:00 Lansoprazole (Prevacid) 30 mg DAILY@06 GTB Last administered on 12/10/18 05:48; Admin Dose 30 MG; Start 11/28/18 at 06:00 Alendronate Sodium (Fosamax) 70 mg Mo@AC BREAKFAST PO Last administered on 12/09/18 05:34; Admin Dose 70 MG; Start 12/02/18 at 07:00 Furosemide (Lasix) 20 mg BID DIURETICS IV Last administered on 12/07/18at 05:39; Admin Dose 20 MG; Start 12/03/18 at 08:00; Status Hold Miscellaneous Information 1 ea NOTE XX ; Start 12/05/18 at 15:00 Glucose (Glutose) 15 gm Q15M PRN PO DECREASED GLUCOSE; Start 12/05/18 at 15:00 Glucose (Glutose) 22.5 gm Q15M PRN PO DECREASED GLUCOSE; Start 12/05/18 at 15:00 Dextrose (D50w Syringe) 25 ml Q15M PRN IV DECREASED GLUCOSE; Start 12/05/18 at 15:00 Dextrose (D50w Syringe) 50 ml Q15M PRN IV DECREASED GLUCOSE; Start 12/05/18 at 15:00 Glucagon (Glucagen) 1 mg Q15M PRN IM DECREASED GLUCOSE; Start 12/05/18 at 15:00 Glucose (Glutose) 15 gm Q15M PRN BUCCAL DECREASED GLUCOSE; Start 12/05/18 at 15:00 Insulin Glargine (Lantus) 12 units DAILY@1500 SC Last administered on 12/09/18at 17:30; Admin Dose 12 UNITS; Start 12/06/18 at 15:00 Calcitriol (Rocaltrol Liquid (Ped)) 0.25 mcg DAILY GTB Last administered on 12/10/18at 08:50; Admin Dose 0.25 MCG; Start 12/07/18 at 09:00 Midodrine (Proamatine) 10 mg TID@,13,17 GTB Last administered on 12/10/18at 08:51; Admin Dose 10 MG; Start 12/07/18 at 09:00 Acetazolamide (Diamox) 500 mg DAILY IV Last administered on 12/09/18at 09:27; Admin Dose 500 MG; Start 12/09/18 at 09:00; Status Hold Potassium Chloride 100 ml @ 50 mls/hr Q2H IVPB Last administered on 12/10/18at 09:22; Admin Dose 50 MLS/HR; Start 12/10/18 at 07:00; Stop 12/10/18 at 12:59 Meds reviewed: Yes Allergies Coded Allergies: No Known Allergy (Unverified , 11/23/18) Allergies Reviewed: Yes Labs/Studies Labs Reviewed: Reviewed by anesthesiologist Result Diagram: 12/10/18 0438 12/10/18 0438 Laboratory Tests 12/10/18 04:38 test: N/A Studies: ECG Pre-procedure Exam Last vitals Vital Signs Date Temp Pulse Resp B/P (MAP) Pulse Ox O2 O2 Flow FiO2 Time Delivery Rate 12/10/18 73 23 99 30 09:50 12/10/18 101/57 Mechanical 06:00 (72) Ventilator 12/10/18 97.9 04:00 Airway: Adequate mouth opening, Adequate thyromental dist Mallampati: Mallampati II Teeth: Normal Lung: Normal Heart: Normal ASA Physical Status ASA physical status: 4 Emergency: None Planned Anesthetic General/MAC: MAC Planned Pain Management Parenteral pain med Pre-operative Attestations Prior to commencing anesthesia and surgery, the patient was re-evaluated, there was verification of: *The patient's identity *The results of appropriate recent lab work and preoperative vital signs *The above evaluation not changing prior to induction *Anesthetic plan, risk benefits, alternative and complications discussed with patient/family; questions answered; patient/family understands, accepts and wishes to proceed. CLIF MORENO MD Dec 10, 2018 10:09
[2018-12-10] MEDS ORDERED: CEFAZOLIN 1 GM/50 ML (PMX) 50 ML IVPB ONE (10:29)
--- NOTE | 2018-12-10 10:38 | PAC ---
Date/Time of Note Date/Time of Note DATE: 12/10/18 TIME: 10:38 Post-Anesthesia Notes Post-Anesthesia Note Last documented vital signs Vital Signs Date Temp Pulse Resp B/P (MAP) Pulse Ox O2 O2 Flow FiO2 Time Delivery Rate 12/10/18 73 23 99 30 09:50 12/10/18 101/57 Mechanical 06:00 (72) Ventilator 12/10/18 97.9 04:00 Activity: WNL Respiratory function: Other (on vent) Cardiovascular function: WNL Mental status: Baseline Pain reasonably controlled: Yes Hydration appropriate: Yes Nausea/Vomiting absent: Yes Comments BP:128/67, P:78, Spo2:100%, T:99,8 CLIF MORENO MD Dec 10, 2018 10:38
--- NOTE | 2018-12-10 11:19 | PN ---
Date/Time of Note Date/Time of Note DATE: 12/10/18 TIME: 11:18 Assessment/Plan Lines/Catheters IV Catheter Type (from Nrsg): PICC Line Das in Place (from Nrsg): Yes Assessment/Plan Assessment/Plan Respiratory failure Patient for ovarian cancer Unable to come off the ventilator secondary to comorbidities Want to proceed with tracheostomy Cussed with the family and the nursing staff Subjective 24 Hr Interval Summary Constitutional: no complaints, improved, ambulates, BM, flatus, urine output Pain Control: well controlled Exam/Review of Systems Vital Signs Vitals Vital Signs Date Temp Pulse Resp B/P (MAP) Pulse Ox O2 O2 Flow FiO2 Time Delivery Rate 12/10/18 73 23 99 30 09:50 12/10/18 101/57 Mechanical 06:00 (72) Ventilator 12/10/18 97.9 04:00 Intake and Output 12/09/18 12/09/18 12/10/18 1515:00 23:00 07:00 IntakeIntake Total 225 ml 440 ml 65 ml OutputOutput Total 305 ml 610 ml 445 ml BalanceBalance -80 ml -170 ml -380 ml Exam Eyes: nl conjunctiva, EOMI, nl lids, nl sclera ENMT: nl external ears & nose, nl lips & teeth, nl nasal mucosa & septum, mucosa pink and moist Neck: supple, non-tender Respiratory: clear to auscultation, normal air movement Cardiovascular: regular rate and rhythm, nl pulses Gastrointestinal: soft, nl liver, spleen, non-tender Musculoskeletal: nl extremities to inspection, nl gait and stance Results Result Diagram: 12/10/18 0438 12/10/18 0438 KIMBERLEY LARIOS MD Dec 10, 2018 11:19
--- NOTE | 2018-12-10 12:11 | CONS ---
Consult Date/Type/Reason Admit Date/Time Nov 25, 2018 at 23:59 Initial Consult Date 11/26/18 Type of Consult Pulmonary Requesting Provider: SHAUN CHIRSTENSEN DO Date/Time of Note DATE: 12/10/18 TIME: 12:10 Subjective Long discussion with the patient and family at bedside yesterday. Patient requesting tracheostomy and PEG tube. PEG tube was placed this morning without complication. Objective Vital Signs Date Temp Pulse Resp B/P (MAP) Pulse Ox O2 O2 Flow FiO2 Time Delivery Rate 12/10/18 70 20 98 30 11:50 12/10/18 121/74 Mechanical 10:05 (90) Ventilator 12/10/18 97.9 04:00 Intake and Output 12/09/18 12/09/18 12/10/18 1515:00 23:00 07:00 IntakeIntake Total 225 ml 440 ml 65 ml OutputOutput Total 305 ml 610 ml 445 ml BalanceBalance -80 ml -170 ml -380 ml Exam GENERAL: Elderly lady orally intubated on mechanical ventilation VITAL SIGNS: per chart NECK: Supple. No JVD or lymphadenopathy. CARDIAC EXAM: S1, S2. No added sounds or murmurs. CHEST: clear bilaterally, No added sounds, rales or wheezes ABDOMEN: Soft, nontender. No guarding or rebound. EXTREMITIES: No cyanosis, clubbing or edema. NEUROLOGIC: Generalized weakness. No focal deficits. Vent Setting Ventilator Support Mode: AC Fraction of Inspired Oxygen pe: 30 Positive End Expiratory Pressu: 5.0 Results/Medications Result Diagram: 12/10/18 0438 12/10/18 0438 Results 24 hrs Laboratory Tests Test 12/09/18 13:20 12/09/18 17:28 12/09/18 20:32 12/10/18 00:42 Bedside Glucose 168 180 151 105 Test 12/10/18 03:30 12/10/18 04:38 12/10/18 05:51 12/10/18 08:48 Prothrombin Time 13.9 Prothrombin Time 1.1 Ratio INR International 1.06 Normalized Ratio Activated 27.5 Partial Thromboplast Time White Blood Count 7.7 Red Blood Count 2.75 L Hemoglobin 7.9 L Hematocrit 24.9 L Mean Corpuscular 90.5 Volume Mean Corpuscular 28.7 L Hemoglobin Mean Corpuscular 31.7 L Hemoglobin Concent Red Cell 18.8 H Distribution Width Platelet Count 112 L Mean Platelet Volume 11.7 H Immature 0.400 Granulocytes % Neutrophils % 95.4 H Lymphocytes % 1.2 L Monocytes % 2.9 Eosinophils % 0.0 Basophils % 0.1 Nucleated Red Blood 0.0 Cells % Immature 0.030 Granulocytes # Neutrophils # 7.3 Lymphocytes # 0.1 L Monocytes # 0.2 L Eosinophils # 0.0 Basophils # 0.0 Nucleated Red Blood 0.0 Cells # Sodium Level 138 Potassium Level 2.8 *L Chloride Level 102 Carbon Dioxide Level 34 H Anion Gap 2 L Blood Urea Nitrogen 29 H Creatinine 0.41 L Est Glomerular Filtrat Rate mL/min Glucose Level 84 # Calcium Level 7.5 L Phosphorus Level 3.2 Magnesium Level 2.2 Bedside Glucose 98 99 Medications Current Medications Ondansetron HCl (Zofran Inj) 4 mg Q6H PRN IV NAUSEA AND/OR VOMITING; Start 11/26/18 at 01:00 Albuterol (Ventolin Hfa) 4 puff Q4H RESP THERAPY INH Last administered on 12/10/18at 08:05; Admin Dose 4 PUFF; Start 11/26/18 at 01:00 Albuterol (Ventolin Hfa) 4 puff Q2H RESP THERAPY PRN INH SHORTNESS OF BREATH Last administered on 11/28/18at 01:53; Admin Dose 4 PUFF; Start 11/26/18 at 01:00 Methylprednisolone Sodium Succinate (Solu-Medrol) 60 mg Q6 IV Last administered on 12/10/18 05:48; Admin Dose 60 MG; Start 11/26/18 at 06:00 Acetaminophen (Tylenol Liquid) 650 mg Q6H PRN PO PAIN LEVEL 1-3 OR FEVER; Start 11/26/18 at 01:00 Morphine Sulfate (morphine) 2 mg Q4H PRN IV PAIN LEVEL 7-10; Start 11/26/18 at 01:00 Lorazepam (Ativan) 1 mg Q2H PRN IV ANXIETY; Start 11/26/18 at 01:00 Enoxaparin Sodium (Lovenox) 40 mg DAILY SC Last administered on 12/09/18 09:30; Admin Dose 40 MG; Start 11/26/18 at 09:00; Status Hold Norepinephrine 250 ml @ 1.875 mls/ hr TITRATE IV Last administered on 12/06/18at 23:16; Admin Dose 9.375 MLS/HR; Start 11/26/18 at 09:00 Insulin Aspart (Novolog Insulin Pen) NOVOLOG *MILD* ALGORI... Q4 SC Last administered on 12/09/18at 20:43; Admin Dose 1 UNIT; Start 11/26/18 at 13:00 Phenylephrine HCl 40 mg/Dextrose 250 ml @ 37.5 mls/hr TITRATE IV Last administered on 11/30/18at 02:35; Admin Dose 3 MLS/HR; Start 11/26/18 at 11:00 Fentanyl 100 ml @ 2.5 mls/hr TITRATE IV Last administered on 12/09/18at 23:21; Admin Dose 5 MLS/HR; Start 11/26/18 at 13:00 IV Flush (NS 10 ml) 10 ml PRN PRN IV IV PROTOCOL; Start 11/26/18 at 15:00 Lansoprazole (Prevacid) 30 mg DAILY@06 GTB Last administered on 12/10/18at 05:48; Admin Dose 30 MG; Start 11/28/18 at 06:00 Alendronate Sodium (Fosamax) 70 mg Mo@AC BREAKFAST PO Last administered on 12/09/18at 05:34; Admin Dose 70 MG; Start 12/02/18 at 07:00 Furosemide (Lasix) 20 mg BID DIURETICS IV Last administered on 12/07/18at 05:39; Admin Dose 20 MG; Start 12/03/18 at 08:00; Status Hold Miscellaneous Information 1 ea NOTE XX ; Start 12/05/18 at 15:00 Glucose (Glutose) 15 gm Q15M PRN PO DECREASED GLUCOSE; Start 12/05/18 at 15:00 Glucose (Glutose) 22.5 gm Q15M PRN PO DECREASED GLUCOSE; Start 12/05/18 at 15:00 Dextrose (D50w Syringe) 25 ml Q15M PRN IV DECREASED GLUCOSE; Start 12/05/18 at 15:00 Dextrose (D50w Syringe) 50 ml Q15M PRN IV DECREASED GLUCOSE; Start 12/05/18 at 15:00 Glucagon (Glucagen) 1 mg Q15M PRN IM DECREASED GLUCOSE; Start 12/05/18 at 15:00 Glucose (Glutose) 15 gm Q15M PRN BUCCAL DECREASED GLUCOSE; Start 12/05/18 at 15:00 Insulin Glargine (Lantus) 12 units DAILY@1500 SC Last administered on 12/09/18 17:30; Admin Dose 12 UNITS; Start 12/06/18 at 15:00 Calcitriol (Rocaltrol Liquid (Ped)) 0.25 mcg DAILY GTB Last administered on 12/10/18 08:50; Admin Dose 0.25 MCG; Start 12/07/18 at 09:00 Midodrine (Proamatine) 10 mg TID@,13,17 GTB Last administered on 12/10/18at 08:51; Admin Dose 10 MG; Start 12/07/18 at 09:00 Acetazolamide (Diamox) 500 mg DAILY IV Last administered on 12/09/18at 09:27; Admin Dose 500 MG; Start 12/09/18 at 09:00; Status Hold Potassium Chloride 100 ml @ 50 mls/hr Q2H IVPB Last administered on 12/10/18at 11:59; Admin Dose 50 MLS/HR; Start 12/10/18 at 07:00; Stop 12/10/18 at 12:59 Assessment/Plan Hospital Course (Demo Recall) IMP: 1. Sepsis 2. Hypercapnic Resp Failure/Failure to wean 3. s/p NSTEMI 4. Anemia 5. HypoK+ 6. Hypothyroidism RECS: 1. Continue AC mechanical ventilation. 2. Pending tracheostomy. 3. Decrease sedation as tolerated 4. TF to resume after PEG tube placement. 40 min cc time JESS SAUCEDO MD, [facility] Dec 10, 2018 12:11
--- NOTE | 2018-12-10 14:12 | CONS ---
Assessment/Plan Assessment/Plan Hospital Course (Demo Recall) Patient had back placement this morning she is comfortable on vent, family at bedside no fevers WBC 7.7 platelets 112 neutrophils 95.4 BUN 29 creatinine 0.41 Antimicrobials: completed Fluconazole, cefepime Microbiology: Urine cx + Nicole albicans, sputum culture grew Nicole albicans/E coli Indwelling: Endotracheal tube, NG tube, Das, right upper extremity PICC line Physical examination: This is a chronically ill-appearing wasted elderly woman who is intubated sedated in no distress. Head atraumatic normocephalic neck is supple chest rise symmetrical breath sounds diminished bases heart: S1-S2 abdomen soft bowel sounds present extremities without cyanosis Assessment: 1. S/p sepsis 2. Acute on chronic hypoxemic respiratory failure 3. Bilateral pneumonia 4. Nicole albicans UTI 5. Coronary artery disease with a history of mitral valve replacement Plan: Remains stable, status post PEG this morning, pending tracheostomy DW RN/family Consultation Date/Type/Reason Admit Date/Time Nov 25, 2018 at 23:59 Initial Consult Date 11/26/18 Type of Consult id Requesting Provider: SHAUN CHRISTENSEN DO Date/Time of Note DATE: 12/10/18 TIME: 14:11 Exam/Review of Systems Exam Vitals Vital Signs Date Temp Pulse Resp B/P (MAP) Pulse Ox O2 O2 Flow FiO2 Time Delivery Rate 12/10/18 71 22 100 30 13:36 12/10/18 121/74 Mechanical 10:05 (90) Ventilator 12/10/18 97.9 04:00 Intake and Output 12/09/18 12/09/18 12/10/18 1515:00 23:00 07:00 IntakeIntake Total 225 ml 440 ml 65 ml OutputOutput Total 305 ml 610 ml 445 ml BalanceBalance -80 ml -170 ml -380 ml Results Result Diagram: 12/10/18 0438 12/10/18 0438 Results 24hrs Laboratory Tests Test 12/09/18 17:28 12/09/18 20:32 12/10/18 00:42 12/10/18 03:30 Bedside Glucose 180 151 105 Prothrombin Time 13.9 Prothrombin Time 1.1 Ratio INR International 1.06 Normalized Ratio Activated 27.5 Partial Thromboplast Time Test 12/10/18 04:38 12/10/18 05:51 12/10/18 08:48 12/10/18 13:41 White Blood Count 7.7 Red Blood Count 2.75 L Hemoglobin 7.9 L Hematocrit 24.9 L Mean Corpuscular 90.5 Volume Mean Corpuscular 28.7 L Hemoglobin Mean Corpuscular 31.7 L Hemoglobin Concent Red Cell 18.8 H Distribution Width Platelet Count 112 L Mean Platelet Volume 11.7 H Immature 0.400 Granulocytes % Neutrophils % 95.4 H Lymphocytes % 1.2 L Monocytes % 2.9 Eosinophils % 0.0 Basophils % 0.1 Nucleated Red Blood 0.0 Cells % Immature 0.030 Granulocytes # Neutrophils # 7.3 Lymphocytes # 0.1 L Monocytes # 0.2 L Eosinophils # 0.0 Basophils # 0.0 Nucleated Red Blood 0.0 Cells # Sodium Level 138 Potassium Level 2.8 *L Chloride Level 102 Carbon Dioxide Level 34 H Anion Gap 2 L Blood Urea Nitrogen 29 H Creatinine 0.41 L Est Glomerular Filtrat Rate mL/min Glucose Level 84 # Calcium Level 7.5 L Phosphorus Level 3.2 Magnesium Level 2.2 Bedside Glucose 98 99 72 Medications Medication Current Medications Ondansetron HCl (Zofran Inj) 4 mg Q6H PRN IV NAUSEA AND/OR VOMITING; Start 11/26/18 at 01:00 Albuterol (Ventolin Hfa) 4 puff Q4H RESP THERAPY INH Last administered on 12/10/18at 13:53; Admin Dose 4 PUFF; Start 11/26/18 at 01:00 Albuterol (Ventolin Hfa) 4 puff Q2H RESP THERAPY PRN INH SHORTNESS OF BREATH Last administered on 11/28/18at 01:53; Admin Dose 4 PUFF; Start 11/26/18 at 01:00 Methylprednisolone Sodium Succinate (Solu-Medrol) 60 mg Q6 IV Last administered on 12/10/18at 12:56; Admin Dose 60 MG; Start 11/26/18 at 06:00 Acetaminophen (Tylenol Liquid) 650 mg Q6H PRN PO PAIN LEVEL 1-3 OR FEVER; Start 11/26/18 at 01:00 Morphine Sulfate (morphine) 2 mg Q4H PRN IV PAIN LEVEL 7-10; Start 11/26/18 at 01:00 Lorazepam (Ativan) 1 mg Q2H PRN IV ANXIETY; Start 11/26/18 at 01:00 Enoxaparin Sodium (Lovenox) 40 mg DAILY SC Last administered on 12/09/18at 09:30; Admin Dose 40 MG; Start 11/26/18 at 09:00; Status Hold Norepinephrine 250 ml @ 1.875 mls/ hr TITRATE IV Last administered on 12/06/18at 23:16; Admin Dose 9.375 MLS/HR; Start 11/26/18 at 09:00 Insulin Aspart (Novolog Insulin Pen) NOVOLOG *MILD* ALGORI... Q4 SC Last administered on 12/09/18at 20:43; Admin Dose 1 UNIT; Start 11/26/18 at 13:00 Phenylephrine HCl 40 mg/Dextrose 250 ml @ 37.5 mls/hr TITRATE IV Last administered on 11/30/18at 02:35; Admin Dose 3 MLS/HR; Start 11/26/18 at 11:00 Fentanyl 100 ml @ 2.5 mls/hr TITRATE IV Last administered on 12/09/18at 23:21; Admin Dose 5 MLS/HR; Start 11/26/18 at 13:00 IV Flush (NS 10 ml) 10 ml PRN PRN IV IV PROTOCOL; Start 11/26/18 at 15:00 Lansoprazole (Prevacid) 30 mg DAILY@06 GTB Last administered on 12/10/18at 05:48; Admin Dose 30 MG; Start 11/28/18 at 06:00 Alendronate Sodium (Fosamax) 70 mg Mo@AC BREAKFAST PO Last administered on 12/09/18at 05:34; Admin Dose 70 MG; Start 12/02/18 at 07:00 Furosemide (Lasix) 20 mg BID DIURETICS IV Last administered on 12/07/18at 05:39; Admin Dose 20 MG; Start 12/03/18 at 08:00; Status Hold Miscellaneous Information 1 ea NOTE XX ; Start 12/05/18 at 15:00 Glucose (Glutose) 15 gm Q15M PRN PO DECREASED GLUCOSE; Start 12/05/18 at 15:00 Glucose (Glutose) 22.5 gm Q15M PRN PO DECREASED GLUCOSE; Start 12/05/18 at 15:00 Dextrose (D50w Syringe) 25 ml Q15M PRN IV DECREASED GLUCOSE; Start 12/05/18 at 15:00 Dextrose (D50w Syringe) 50 ml Q15M PRN IV DECREASED GLUCOSE; Start 12/05/18 at 15:00 Glucagon (Glucagen) 1 mg Q15M PRN IM DECREASED GLUCOSE; Start 12/05/18 at 15:00 Glucose (Glutose) 15 gm Q15M PRN BUCCAL DECREASED GLUCOSE; Start 12/05/18 at 15:00 Insulin Glargine (Lantus) 12 units DAILY@1500 SC Last administered on 12/09/18at 17:30; Admin Dose 12 UNITS; Start 12/06/18 at 15:00 Calcitriol (Rocaltrol Liquid (Ped)) 0.25 mcg DAILY GTB Last administered on 12/10/18at 08:50; Admin Dose 0.25 MCG; Start 12/07/18 at 09:00 Midodrine (Proamatine) 10 mg TID@09,13,17 GTB Last administered on 12/10/18at 13:38; Admin Dose 10 MG; Start 12/07/18 at 09:00 Acetazolamide (Diamox) 500 mg DAILY IV Last administered on 12/09/18at 09:27; Admin Dose 500 MG; Start 12/09/18 at 09:00; Status Hold JODY BOYD NP Dec 10, 2018 14:12
[2018-12-10] MEDS: INSULIN GLARGINE [LANTus] (100 UNITS/ML) SYG SC SCH ×2 (17:00→17:35)
[2018-12-10] MEDS: FENTAnyl (DRIP) 1000 mcg/100mL 100 ML IV SCH (18:31)
[2018-12-11] VITALS (36 sets, daily range): BP systolic 76–138; BP diastolic 52–88; PULSE 62–112; RESP 14–34
[2018-12-11] MEDS: INSULIN ASPART [NOVOLOG] 3 ML PEN SC SCH ×6 (01:00→21:00)
[2018-12-11] MEDS: ALBUTEROL HFA 8 GM INHALER INH SCH ×6 (01:18→21:09)
[2018-12-11] MEDS: BALSAM PERU/CASTOR OIL 60 GM TUBE TOP SCH ×2 (01:25→09:10)
[2018-12-11] MEDS: METHYLPREDNISOLONE 125 MG INJ IV SCH ×4 (01:25→17:59)
[2018-12-11] MEDS: LANSOPRAZOLE 30 MG CAP GTB SCH (05:42)
[2018-12-11] MEDS ORDERED: POTASSIUM CHLORIDE 20 MEQ POWDER FOR ORAL SOLN GTB ONE (08:00)
--- NOTE | 2018-12-11 08:22 | PN ---
DATE: 12/11/2018 SUBJECTIVE: The patient is status post percutaneous endoscopic gastrostomy yesterday, tolerated well . The patient is pending trach placement on . No other acute events noted. No hemoptysis, hematemesis or hematochezia. OBJECTIVE: VITAL SIGNS: Blood pressure is 76/52, respirations 22, pulse 86, temperature 98.1. HEENT: Head is normocephalic. NECK: Supple. HEART: Regular rate. LUNGS: Show diminished breath sounds at the base. ABDOMEN: Soft, nontender to palpation without rebound or guarding. EXTREMITIES: Negative for clubbing, cyanosis. Positive edema in left upper extremity. DERMATOLOGIC: No rashes. MUSCULOSKELETAL: No joint effusion. NEUROLOGIC: No change in exam. MEDICATIONS: Reviewed. LABORATORY DATA: Reviewed. ASSESSMENT AND PLAN: 1. Sepsis secondary to pneumonia, bacteremia and fungal urinary tract infection. The patient is cur rently on pressor support. Continue antimicrobial antifungal therapy. Continue to monitor. Follow up with Infectious Disease. 2. Ventilator-dependent respiratory failure. The patient is pending trach placement. Vent settings have been reviewed. Continue to monitor. 3. Dysphagia, status post percutaneous endoscopic gastrostomy. Continue feeding. 4. Volume overload. Continue intermittent diuretic therapy as needed. 5. Hypokalemia. We will replete with potassium chloride. 6. Metabolic alkalemia, improving. Continue intermittent Diamox. 7. Left upper extremity swelling. We will get a Doppler venous ultrasound to rule out deep venous t hrombosis. 8. Anemia. Continue to monitor hemoglobin and hematocrit levels. 9. Nonoliguric acute kidney injury. Etiology is secondary to hemodynamics. Renal function is impro mary ann. Continue to monitor. 10. Non-ST elevation myocardial infarction. Continue medical management. 11. History of arrhythmia, status post pacemaker. 12. Diabetes. Continue current insulin regimen, adjust as needed. 13. History of ovarian cancer stage IV, status post chemotherapy and debulking surgery. 14. History of hypothyroidism. 15. History of arthritis. 16. Gastrointestinal and deep vein thrombosis prophylaxis. Dictated By: SHAUN CHRISTENSEN DO NR/NTS Conf#: [id number] DID#: [id number] CC: STEVIE REN MD; JESS SAUCEDO MD;*[facility]*
--- NOTE | 2018-12-11 08:43 | CONS ---
Consult Date/Type/Reason Admit Date/Time Nov 25, 2018 at 23:59 Initial Consult Date 11/26/18 Type of Consultation: cv Requesting Provider: SHAUN CHRISTENSEN DO Date/Time of Note DATE: 12/11/18 TIME: 08:41 Subjective Interventional cardiology follow-up progress note Subjective: Case discussed with staff and telemetry was reviewed. Patient remains in sinus rhythm with ventricular pacing. HR is STABLE now pt denies any chest pain or pressure Patient has remained intubated and has not been able to be weaned off the vent d/w physicians s/p PEG Objective: General: Elderly female cachectic looking appears to be older than stated age status post intubation on the vent HEENT: NC/AT. pupils are equal. round. NECK: NO JVD. no stridor. CV: RRR. systolic murmur; no gallop or rubs. PULM: no wheezing + rhonchi more on the right GI: SOFT, NT, ND, no rebound or guarding Extremity: 1+ B/L ANKLE edema. no clubbing. neuro:sedated Psych: calm rectal: deferred : normal Chest x-ray 12/06/18 shows Overall, no significant change in appearance of multifocal bilateral pulmonary opacities and small pleural effusions CXR 4. 1. Unchanged airspace opacities of the bilateral, right greater than left perihilar regions and lower lobes. 2. Stable small to moderate right and small left-sided pleural effusions. Echocardiogram was personally reviewed which showed normal LV size ejection fraction of about 45-50% EKG was personally reviewed which shows ventricular paced rhythm CT Chest 11/27: 1. Findings compatible with bilateral bronchiolitis and bronchopneumonia, greater on the right, significantly increased when compared to the prior CT. Mild bilateral pleural effusions, grossly stable. 2. Stable mild cardiomegaly. Coronary arterial and aortic atherosclerotic calcifications. 3. Lines and tubes in place, as above. 4. No evidence of mass or lymphadenopathy Objective Vitals Vital Signs Date Temp Pulse Resp B/P (MAP) Pulse Ox O2 O2 Flow FiO2 Time Delivery Rate 12/11/18 97 23 98 30 08:32 12/11/18 105/65 Mechanical 06:00 (78) Ventilator 12/11/18 98.1 04:00 Intake and Output 12/10/18 12/10/18 12/11/18 1515:00 23:00 07:00 IntakeIntake Total 460 ml 300 ml 265 ml OutputOutput Total 640 ml 360 ml 280 ml BalanceBalance -180 ml -60 ml -15 ml Results/Medications Result Diagram: 12/11/18 0330 12/11/18 0330 Results 24 hrs Laboratory Tests Test 12/10/18 08:48 12/10/18 13:41 12/10/18 14:59 12/10/18 17:32 Bedside Glucose 99 72 93 Sodium Level 136 Potassium Level 3.9 Chloride Level 102 Carbon Dioxide Level 30 Anion Gap 4 L Blood Urea Nitrogen 24 H Creatinine 0.36 L Est Glomerular Filtrat Rate mL/min Glucose Level 92 Calcium Level 7.4 L Test 12/10/18 20:08 12/11/18 01:22 12/11/18 03:30 12/11/18 05:46 Bedside Glucose 110 93 80 White Blood Count 8.6 Red Blood Count 2.97 L Hemoglobin 8.6 L Hematocrit 26.9 L Mean Corpuscular 90.6 Volume Mean Corpuscular 29.0 Hemoglobin Mean Corpuscular 32.0 Hemoglobin Concent Red Cell 19.1 H Distribution Width Platelet Count 102 L Mean Platelet Volume 11.8 H Immature 0.200 Granulocytes % Neutrophils % 96.3 H Lymphocytes % 1.2 L Monocytes % 2.3 Eosinophils % 0.0 Basophils % 0.0 Nucleated Red Blood 0.0 Cells % Immature 0.020 Granulocytes # Neutrophils # 8.3 H Lymphocytes # 0.1 L Monocytes # 0.2 L Eosinophils # 0.0 Basophils # 0.0 Nucleated Red Blood 0.0 Cells # Sodium Level 137 Potassium Level 3.3 L Chloride Level 102 Carbon Dioxide Level 30 Anion Gap 5 Blood Urea Nitrogen 22 H Creatinine 0.39 L Est Glomerular Filtrat Rate mL/min Glucose Level 62 #L Calcium Level 7.3 L Phosphorus Level 3.0 Magnesium Level 2.1 Home Meds Reported Medications Acetaminophen* (Tylenol*) 325 Mg Tablet, 650 MG PO Q6H PRN for PAIN AND OR ELEVATED TEMP, TAB 11/30/18 Magnesium Oxide* (Mag-Oxide*) 400 Mg Tablet, 400 MG PO BID, TAB 11/30/18 Levothyroxine Sodium* (Synthroid*) 50 Mcg Tablet, 50 MCG PO BEFORE BREAKFAST, #30 TAB 11/30/18 Potassium Chloride* (Potassium Chloride*) 8 Meq Capsule.er, 10 MEQ PO BID, CAP 11/30/18 Furosemide* (Furosemide*) 40 Mg Tablet, 40 MG PO DAILY, TAB 11/30/18 Cyanocobalamin (B12 Health Booster) 1,000 Mcg/15 Ml Oral.susp, 5000 MCG PO DAILY 11/30/18 Atorvastatin Calcium (Atorvastatin Calcium) 10 Mg Tablet, 10 MG PO QHS, #30 TAB 11/30/18 Aspirin* (Devon Aspirin* Chew) 81 Mg Tab.chew, 81 MG PO BID, TAB.CHEW 11/30/18 Acetazolamide* (Acetazolamide*) 250 Mg Tablet, 250 MG PO DAILY, #60 TAB 11/30/18 Alendronate Sodium* (Fosamax*) 70 Mg Tablet, 70 MG PO Q7D, #4 TAB 11/30/18 Medications Current Medications Ondansetron HCl (Zofran Inj) 4 mg Q6H PRN IV NAUSEA AND/OR VOMITING; Start 11/26/18 at 01:00 Albuterol (Ventolin Hfa) 4 puff Q4H RESP THERAPY INH Last administered on 12/11/18at 08:32; Admin Dose 4 PUFF; Start 11/26/18 at 01:00 Albuterol (Ventolin Hfa) 4 puff Q2H RESP THERAPY PRN INH SHORTNESS OF BREATH Last administered on 11/28/18at 01:53; Admin Dose 4 PUFF; Start 11/26/18 at 01:00 Methylprednisolone Sodium Succinate (Solu-Medrol) 60 mg Q6 IV Last administered on 12/11/18at 05:42; Admin Dose 60 MG; Start 11/26/18 at 06:00 Acetaminophen (Tylenol Liquid) 650 mg Q6H PRN PO PAIN LEVEL 1-3 OR FEVER; Start 11/26/18 at 01:00 Morphine Sulfate (morphine) 2 mg Q4H PRN IV PAIN LEVEL 7-10; Start 11/26/18 at 01:00 Lorazepam (Ativan) 1 mg Q2H PRN IV ANXIETY; Start 11/26/18 at 01:00 Enoxaparin Sodium (Lovenox) 40 mg DAILY SC Last administered on 12/09/18at 09:30; Admin Dose 40 MG; Start 11/26/18 at 09:00; Status Hold Norepinephrine 250 ml @ 1.875 mls/ hr TITRATE IV Last administered on 12/06/18at 23:16; Admin Dose 9.375 MLS/HR; Start 11/26/18 at 09:00 Insulin Aspart (Novolog Insulin Pen) NOVOLOG *MILD* ALGORI... Q4 SC Last ad ministered on 12/09/18at 20:43; Admin Dose 1 UNIT; Start 11/26/18 at 13:00 Phenylephrine HCl 40 mg/Dextrose 250 ml @ 37.5 mls/hr TITRATE IV Last administered on 11/30/18at 02:35; Admin Dose 3 MLS/HR; Start 11/26/18 at 11:00 Fentanyl 100 ml @ 2.5 mls/hr TITRATE IV Last administered on 12/10/18at 18:31; Admin Dose 5 MLS/HR; Start 11/26/18 at 13:00 IV Flush (NS 10 ml) 10 ml PRN PRN IV IV PROTOCOL; Start 11/26/18 at 15:00 Lansoprazole (Prevacid) 30 mg DAILY@06 GTB Last administered on 12/11/18at 05:42; Admin Dose 30 MG; Start 11/28/18 at 06:00 Alendronate Sodium (Fosamax) 70 mg Mo@AC BREAKFAST PO Last administered on 12/09/18at 05:34; Admin Dose 70 MG; Start 12/02/18 at 07:00 Furosemide (Lasix) 20 mg BID DIURETICS IV Last administered on 12/07/18at 05:39; Admin Dose 20 MG; Start 12/03/18 at 08:00; Status Hold Miscellaneous Information 1 ea NOTE XX ; Start 12/05/18 at 15:00 Glucose (Glutose) 15 gm Q15M PRN PO DECREASED GLUCOSE; Start 12/05/18 at 15:00 Glucose (Glutose) 22.5 gm Q15M PRN PO DECREASED GLUCOSE; Start 12/05/18 at 15:00 Dextrose (D50w Syringe) 25 ml Q15M PRN IV DECREASED GLUCOSE; Start 12/05/18 at 15:00 Dextrose (D50w Syringe) 50 ml Q15M PRN IV DECREASED GLUCOSE; Start 12/05/18 at 15:00 Glucagon (Glucagen) 1 mg Q15M PRN IM DECREASED GLUCOSE; Start 12/05/18 at 15:00 Glucose (Glutose) 15 gm Q15M PRN BUCCAL DECREASED GLUCOSE; Start 12/05/18 at 15:00 Calcitriol (Rocaltrol Liquid (Ped)) 0.25 mcg DAILY GTB Last administered on 12/10/18at 08:50; Admin Dose 0.25 MCG; Start 12/07/18 at 09:00 Midodrine (Proamatine) 10 mg TID@09,13,17 GTB Last administered on 12/10/18at 17:33; Admin Dose 10 MG; Start 12/07/18 at 09:00 Acetazolamide (Diamox) 500 mg DAILY IV Last administered on 12/09/18at 09:27; Admin Dose 500 MG; Start 12/09/18 at 09:00; Status Hold Insulin Glargine (Lantus) 12 units DAILY@1700 SC ; Start 12/10/18 at 17:00 Multivitamins (Multivitamin) 30 ml DAILY GTB ; Start 12/11/18 at 09:00; Status UNV Ascorbic Acid (Vitamin C) 500 mg DAILY GTB ; Start 12/11/18 at 09:00; Status UNV Folic Acid (Folic Acid) 1 mg DAILY GTB ; Start 12/11/18 at 09:00; Status UNV Zinc Sulfate (Zinc Sulfate) 220 mg DAILY GTB ; Start 12/11/18 at 09:00; Status UNV Assessment/Plan Hospital Course (Demo Recall) Acute on chronic hypoxemic/hypercapnic respiratory failure status post intubation currently on the ventilator Shock: Appears to be septic Pneumonia Pleural effusion History of mitral valve replacement currently functioning normally History of most likely heart block status post permanent pacemaker ([employer]) Encephalopathy Cachexia and malnutrition History of rheumatoid arthritis History of ovarian cancer stage IV Thyroid disorder Acute renal failure: stable now Diabetes anemia dysphagia: s/p PEG 12/10/18 Recommendations: Vent support to be continued to be managed as per pulmonary. UNABLE to wean off. awaiting trach Antibiotic management as per internal medicine pulmonary and infectious disease consultants BP is stable now off pressors REPLACE Lytes prn . Diabetic management as per internal medicine GI and DVT prophylaxis lasix as per pulm rec Continue with ICU care may need trach if unable to extubate NAYLA SAUL MD [facility] NAYLA SAUL MD December 11, 2018 08:43
[2018-12-11] MEDS: ENOXAPARIN 40 MG/0.4 ML SYG SC SCH (09:00)
[2018-12-11] MEDS: MULTIVITAMINS 30 ML CUP GTB SCH (09:09)
[2018-12-11] MEDS: CALCITRIOL (1 MCG/ML PO SYG) GTB SCH (09:10)
[2018-12-11] MEDS: ASCORBIC ACID 500 MG TAB GTB SCH (09:12)
[2018-12-11] MEDS: FOLIC ACID 1 MG TAB GTB SCH (09:12)
[2018-12-11] MEDS: MIDODRINE 5 MG TAB GTB SCH ×3 (09:12→18:00)
[2018-12-11] MEDS: ZINC SULFATE 220 MG CAP GTB SCH (09:12)
--- NOTE | 2018-12-11 11:51 | CONS ---
Consult Date/Type/Reason Admit Date/Time Nov 25, 2018 at 23:59 Initial Consult Date 11/26/18 Type of Consult Pulmonary Requesting Provider: SHAUN CHRISTENSEN DO Date/Time of Note DATE: 12/11/18 TIME: 11:50 Subjective Pending trach No events Objective Vital Signs Date Temp Pulse Resp B/P (MAP) Pulse Ox O2 O2 Flow FiO2 Time Delivery Rate 12/11/18 105 24 100 30 09:48 12/11/18 105/65 Mechanical 06:00 (78) Ventilator 12/11/18 98.1 04:00 Intake and Output 12/10/18 12/10/18 12/11/18 1515:00 23:00 07:00 IntakeIntake Total 460 ml 300 ml 265 ml OutputOutput Total 640 ml 360 ml 280 ml BalanceBalance -180 ml -60 ml -15 ml Exam GENERAL: Elderly lady orally intubated on mechanical ventilation VITAL SIGNS: per chart NECK: Supple. No JVD or lymphadenopathy. CARDIAC EXAM: S1, S2. No added sounds or murmurs. CHEST: clear bilaterally, No added sounds, rales or wheezes ABDOMEN: Soft, nontender. No guarding or rebound. EXTREMITIES: No cyanosis, clubbing or edema. NEUROLOGIC: Generalized weakness. No focal deficits. Vent Setting Ventilator Support Mode: AC Fraction of Inspired Oxygen pe: 30 Positive End Expiratory Pressu: 5.0 Results/Medications Result Diagram: 12/11/18 0330 12/11/18 033 Results 24 hrs Laboratory Tests Test 12/10/18 13:41 12/10/18 14:59 12/10/18 17:32 12/10/18 20:08 Bedside Glucose 72 93 110 Sodium Level 136 Potassium Level 3.9 Chloride Level 102 Carbon Dioxide Level 30 Anion Gap 4 L Blood Urea Nitrogen 24 H Creatinine 0.36 L Est Glomerular Filtrat Rate mL/min Glucose Level 92 Calcium Level 7.4 L Test 12/11/18 01:22 12/11/18 03:30 12/11/18 05:46 12/11/18 09:09 Bedside Glucose 93 80 110 White Blood Count 8.6 Red Blood Count 2.97 L Hemoglobin 8.6 L Hematocrit 26.9 L Mean Corpuscular 90.6 Volume Mean Corpuscular 29.0 Hemoglobin Mean Corpuscular 32.0 Hemoglobin Concent Red Cell 19.1 H Distribution Width Platelet Count 102 L Mean Platelet Volume 11.8 H Immature 0.200 Granulocytes % Neutrophils % 96.3 H Lymphocytes % 1.2 L Monocytes % 2.3 Eosinophils % 0.0 Basophils % 0.0 Nucleated Red Blood 0.0 Cells % Immature 0.020 Granulocytes # Neutrophils # 8.3 H Lymphocytes # 0.1 L Monocytes # 0.2 L Eosinophils # 0.0 Basophils # 0.0 Nucleated Red Blood 0.0 Cells # Sodium Level 137 Potassium Level 3.3 L Chloride Level 102 Carbon Dioxide Level 30 Anion Gap 5 Blood Urea Nitrogen 22 H Creatinine 0.39 L Est Glomerular Filtrat Rate mL/min Glucose Level 62 #L Calcium Level 7.3 L Phosphorus Level 3.0 Magnesium Level 2.1 Medications Current Medications Ondansetron HCl (Zofran Inj) 4 mg Q6H PRN IV NAUSEA AND/OR VOMITING; Start 11/26/18 at 01:00 Albuterol (Ventolin Hfa) 4 puff Q4H RESP THERAPY INH Last administered on 08:32; Admin Dose 4 PUFF; Start 11/26/18 at 01:00 Albuterol (Ventolin Hfa) 4 puff Q2H RESP THERAPY PRN INH SHORTNESS OF BREATH Last administered on 11/28/18at 01:53; Admin Dose 4 PUFF; Start 11/26/18 at 01:00 Methylprednisolone Sodium Succinate (Solu-Medrol) 60 mg Q6 IV Last administered on 12/11/18 05:42; Admin Dose 60 MG; Start 11/26/18 at 06:00 Acetaminophen (Tylenol Liquid) 650 mg Q6H PRN PO PAIN LEVEL 1-3 OR FEVER; Start 11/26/18 at 01:00 Morphine Sulfate (morphine) 2 mg Q4H PRN IV PAIN LEVEL 7-10; Start 11/26/18 at 01:00 Lorazepam (Ativan) 1 mg Q2H PRN IV ANXIETY; Start 11/26/18 at 01:00 Enoxaparin Sodium (Lovenox) 40 mg DAILY SC Last administered on 12/09/18at 09:30; Admin Dose 40 MG; Start 11/26/18 at 09:00 Norepinephrine 250 ml @ 1.875 mls/ hr TITRATE IV Last administered on 12/06/18at 23:16; Admin Dose 9.375 MLS/HR; Start 11/26/18 at 09:00 Insulin Aspart (Novolog Insulin Pen) NOVOLOG *MILD* ALGORI... Q4 SC Last administered on 12/09/18at 20:43; Admin Dose 1 UNIT; Start 11/26/18 at 13:00 Phenylephrine HCl 40 mg/Dextrose 250 ml @ 37.5 mls/hr TITRATE IV Last adm inistered on 11/30/18at 02:35; Admin Dose 3 MLS/HR; Start 11/26/18 at 11:00 Fentanyl 100 ml @ 2.5 mls/hr TITRATE IV Last administered on 12/10/18at 18:31; Admin Dose 5 MLS/HR; Start 11/26/18 at 13:00 IV Flush (NS 10 ml) 10 ml PRN PRN IV IV PROTOCOL; Start 11/26/18 at 15:00 Lansoprazole (Prevacid) 30 mg DAILY@06 GTB Last administered on 12/11/18at 05:42; Admin Dose 30 MG; Start 11/28/18 at 06:00 Alendronate Sodium (Fosamax) 70 mg Mo@AC BREAKFAST PO Last administered on 12/09/18at 05:34; Admin Dose 70 MG; Start 12/02/18 at 07:00 Furosemide (Lasix) 20 mg BID DIURETICS IV Last administered on 12/07/18at 05:39; Admin Dose 20 MG; Start 12/03/18 at 08:00; Status Hold Miscellaneous Information 1 ea NOTE XX ; Start 12/05/18 at 15:00 Glucose (Glutose) 15 gm Q15M PRN PO DECREASED GLUCOSE; Start 12/05/18 at 15:00 Glucose (Glutose) 22.5 gm Q15M PRN PO DECREASED GLUCOSE; Start 12/05/18 at 15:00 Dextrose (D50w Syringe) 25 ml Q15M PRN IV DECREASED GLUCOSE; Start 12/05/18 at 15:00 Dextrose (D50w Syringe) 50 ml Q15M PRN IV DECREASED GLUCOSE; Start 12/05/18 at 15:00 Glucagon (Glucagen) 1 mg Q15M PRN IM DECREASED GLUCOSE; Start 12/05/18 at 15:00 Glucose (Glutose) 15 gm Q15M PRN BUCCAL DECREASED GLUCOSE; Start 12/05/18 at 15:00 Calcitriol (Rocaltrol Liquid (Ped)) 0.25 mcg DAILY GTB Last administered on 12/11/18 09:10; Admin Dose 0.25 MCG; Start 12/07/18 at 09:00 Midodrine (Proamatine) 10 mg TID@09,13,17 GTB Last administered on 12/11/18 09:12; Admin Dose 10 MG; Start 12/07/18 at 09:00 Acetazolamide (Diamox) 500 mg DAILY IV Last administered on 12/09/18 09:27; Admin Dose 500 MG; Start 12/09/18 at 09:00; Status Hold Insulin Glargine (Lantus) 12 units DAILY@1700 SC ; Start 12/10/18 at 17:00 Multivitamins (Multivitamin) 30 ml DAILY GTB Last administered on 12/11/18 09:09; Admin Dose 30 ML; Start 12/11/18 at 09:00 Ascorbic Acid (Vitamin C) 500 mg DAILY GTB Last administered on 12/11/18 09:12; Admin Dose 500 MG; Start 12/11/18 at 09:00 Folic Acid (Folic Acid) 1 mg DAILY GTB Last administered on 12/11/18 09:12; Admin Dose 1 MG; Start 12/11/18 at 09:00 Zinc Sulfate (Zinc Sulfate) 220 mg DAILY GTB Last administered on 12/11/18 09:12; Admin Dose 220 MG; Start 12/11/18 at 09:00 Assessment/Plan Hospital Course (Demo Recall) IMP: 1. Sepsis 2. Hypercapnic Resp Failure/Failure to wean 3. s/p NSTEMI 4. Anemia 5. HypoK+ 6. Hypothyroidism RECS: 1. Continue AC mechanical ventilation. 2. Pending tracheostomy. 3. Decrease sedation as tolerated 4. TF to resume after PEG tube placement. 40 min cc time JESS SAUCEDO MD, [facility] December 11, 2018 11:51
--- NOTE | 2018-12-11 13:26 | CONS ---
Assessment/Plan Assessment/Plan Hospital Course (Demo Recall) No acute events per report patient is comfortable on vent, no fevers. WBC 8.6 neutrophils 96.3 BUN 22 creatinine 0.39 Microbiology: Urine cx + Nicole albicans, sputum culture grew Nicole al bicans/E coli===> s/p abx Indwelling: Endotracheal tube, NG tube, Das, right upper extremity PICC line Physical examination: This is a chronically ill-appearing wasted elderly woman who is intubated sedated in no distress. Head atraumatic normocephalic neck is supple chest rise symmetrical breath sounds diminished bases heart: S1-S2 abdomen soft bowel sounds present extremities without cyanosis Assessment: 1. S/p sepsis 2. Acute on chronic hypoxemic respiratory failure 3. Bilateral pneumonia 4. Nicole albicans UTI 5. Coronary artery disease with a history of mitral valve replacement Plan: Remains stable, continue present care, pending tracheostomy DW RN Consultation Date/Type/Reason Admit Date/Time Nov 25, 2018 at 23:59 Initial Consult Date 11/26/18 Type of Consult id Requesting Provider: SHAUN CHRISTENSEN DO Date/Time of Note DATE: 12/11/18 TIME: 13:25 Exam/Review of Systems Exam Vitals Vital Signs Date Temp Pulse Resp B/P (MAP) Pulse Ox O2 O2 Flow FiO2 Time Delivery Rate 12/11/18 106 22 97 30 12:14 12/11/18 105/65 Mechanical 06:00 (78) Ventilator 12/11/18 98.1 04:00 Intake and Output 12/10/18 12/10/18 12/11/18 1515:00 23:00 07:00 IntakeIntake Total 460 ml 300 ml 265 ml OutputOutput Total 640 ml 360 ml 280 ml BalanceBalance -180 ml -60 ml -15 ml Results Result Diagram: 12/11/18 0330 12/11/18 0330 Results 24hrs Laboratory Tests Test 12/10/18 13:41 12/10/18 14:59 12/10/18 17:32 12/10/18 20:08 Bedside Glucose 72 93 110 Sodium Level 136 Potassium Level 3.9 Chloride Level 102 Carbon Dioxide Level 30 Anion Gap 4 L Blood Urea Nitrogen 24 H Creatinine 0.36 L Est Glomerular Filtrat Rate mL/min Glucose Level 92 Calcium Level 7.4 L Test 12/11/18 01:22 12/11/18 03:30 12/11/18 05:46 12/11/18 09:09 Bedside Glucose 93 80 110 White Blood Count 8.6 Red Blood Count 2.97 L Hemoglobin 8.6 L Hematocrit 26.9 L Mean Corpuscular 90.6 Volume Mean Corpuscular 29.0 Hemoglobin Mean Corpuscular 32.0 Hemoglobin Concent Red Cell 19.1 H Distribution Width Platelet Count 102 L Mean Platelet Volume 11.8 H Immature 0.200 Granulocytes % Neutrophils % 96.3 H Lymphocytes % 1.2 L Monocytes % 2.3 Eosinophils % 0.0 Basophils % 0.0 Nucleated Red Blood 0.0 Cells % Immature 0.020 Granulocytes # Neutrophils # 8.3 H Lymphocytes # 0.1 L Monocytes # 0.2 L Eosinophils # 0.0 Basophils # 0.0 Nucleated Red Blood 0.0 Cells # Sodium Level 137 Potassium Level 3.3 L Chloride Level 102 Carbon Dioxide Level 30 Anion Gap 5 Blood Urea Nitrogen 22 H Creatinine 0.39 L Est Glomerular Filtrat Rate mL/min Glucose Level 62 #L Calcium Level 7.3 L Phosphorus Level 3.0 Magnesium Level 2.1 Test 12/11/18 13:13 Bedside Glucose 132 Medications Medication Current Medications Ondansetron HCl (Zofran Inj) 4 mg Q6H PRN IV NAUSEA AND/OR VOMITING; Start 11/26/18 at 01:00 Albuterol (Ventolin Hfa) 4 puff Q4H RESP THERAPY INH Last administered on 12/11/18at 08:32; Admin Dose 4 PUFF; Start 11/26/18 at 01:00 Albuterol (Ventolin Hfa) 4 puff Q2H RESP THERAPY PRN INH SHORTNESS OF BREATH Last administered on 11/28/18at 01:53; Admin Dose 4 PUFF; Start 11/26/18 at 01:00 Methylprednisolone Sodium Succinate (Solu-Medrol) 60 mg Q6 IV Last administered on 12/11/18at 13:15; Admin Dose 60 MG; Start 11/26/18 at 06:00 Acetaminophen (Tylenol Liquid) 650 mg Q6H PRN PO PAIN LEVEL 1-3 OR FEVER; Start 11/26/18 at 01:00 Morphine Sulfate (morphine) 2 mg Q4H PRN IV PAIN LEVEL 7-10; Start 11/26/18 at 01:00 Lorazepam (Ativan) 1 mg Q2H PRN IV ANXIETY; Start 11/26/18 at 01:00 Enoxaparin Sodium (Lovenox) 40 mg DAILY SC Last administered on 12/09/18at 09:30; Admin Dose 40 MG; Start 11/26/18 at 09:00 Norepinephrine 250 ml @ 1.875 mls/ hr TITRATE IV Last administered on 12/06/18at 23:16; Admin Dose 9.375 MLS/HR; Start 11/26/18 at 09:00 Insulin Aspart (Novolog Insulin Pen) NOVOLOG *MILD* ALGORI... Q4 SC Last administered on 12/09/18at 20:43; Admin Dose 1 UNIT; Start 11/26/18 at 13:00 Phenylephrine HCl 40 mg/Dextrose 250 ml @ 37.5 mls/hr TITRATE IV Last administered on 11/30/18at 02:35; Admin Dose 3 MLS/HR; Start 11/26/18 at 11:00 Fentanyl 100 ml @ 2.5 mls/hr TITRATE IV Last administered on 12/10/18at 18:31; Admin Dose 5 MLS/HR; Start 11/26/18 at 13:00 IV Flush (NS 10 ml) 10 ml PRN PRN IV IV PROTOCOL; Start 11/26/18 at 15:00 Lansoprazole (Prevacid) 30 mg DAILY@06 GTB Last administered on 12/11/18at 05:42; Admin Dose 30 MG; Start 11/28/18 at 06:00 Alendronate Sodium (Fosamax) 70 mg Mo@AC BREAKFAST PO Last administered on 12/09/18 05:34; Admin Dose 70 MG; Start 12/02/18 at 07:00 Furosemide (Lasix) 20 mg BID DIURETICS IV Last administered on 12/07/18 05:39; Admin Dose 20 MG; Start 12/03/18 at 08:00; Status Hold Miscellaneous Information 1 ea NOTE XX ; Start 12/05/18 at 15:00 Glucose (Glutose) 15 gm Q15M PRN PO DECREASED GLUCOSE; Start 12/05/18 at 15:00 Glucose (Glutose) 22.5 gm Q15M PRN PO DECREASED GLUCOSE; Start 12/05/18 at 15:00 Dextrose (D50w Syringe) 25 ml Q15M PRN IV DECREASED GLUCOSE; Start 12/05/18 at 15:00 Dextrose (D50w Syringe) 50 ml Q15M PRN IV DECREASED GLUCOSE; Start 12/05/18 at 15:00 Glucagon (Glucagen) 1 mg Q15M PRN IM DECREASED GLUCOSE; Start 12/05/18 at 15:00 Glucose (Glutose) 15 gm Q15M PRN BUCCAL DECREASED GLUCOSE; Start 12/05/18 at 15:00 Calcitriol (Rocaltrol Liquid (Ped)) 0.25 mcg DAILY GTB Last administered on 12/11/18 09:10; Admin Dose 0.25 MCG; Start 12/07/18 at 09:00 Midodrine (Proamatine) 10 mg TID@,, GTB Last administered on 12/11/18 09:12; Admin Dose 10 MG; Start 12/07/18 at 09:00 Acetazolamide (Diamox) 500 mg DAILY IV Last administered on 12/09/18 09:27; Ad min Dose 500 MG; Start 12/09/18 at 09:00; Status Hold Insulin Glargine (Lantus) 12 units DAILY@1700 SC ; Start 12/10/18 at 17:00 Multivitamins (Multivitamin) 30 ml DAILY GTB Last administered on 12/11/18 09:09; Admin Dose 30 ML; Start 12/11/18 at 09:00 Ascorbic Acid (Vitamin C) 500 mg DAILY GTB Last administered on 12/11/18 09:12; Admin Dose 500 MG; Start 12/11/18 at 09:00 Folic Acid (Folic Acid) 1 mg DAILY GTB Last administered on 12/11/18 09:12; Admin Dose 1 MG; Start 12/11/18 at 09:00 Zinc Sulfate (Zinc Sulfate) 220 mg DAILY GTB Last administered on 12/11/18 09:12; Admin Dose 220 MG; Start 12/11/18 at 09:00 JODY BOYD NP December 11, 2018 13:26
[2018-12-11] MEDS: FENTAnyl (DRIP) 1000 mcg/100mL 100 ML IV SCH (16:12)
--- NOTE | 2018-12-11 16:34 | CONS ---
Assessment/Plan Assessment/Plan Assessment/Plan (Daily) Assessment/Plan Hospital Course (Demo Recall) 83 yo female with Vent dependent respiratory failure needs a PEG 1. Dysphasia -PEG placement done yesterday on 12/10/2018 2. Pneumonia -resp cx positive for E. Coli and Nicole albicans 3. UTI -Nicole albicans 4. Vent dependent respiratory failure -plan for trach 5. Anemia due to chronic disease -negative FOB 6. Diabetes mellitus 7. H/o ovarian cancer with total hysterectomy 20 years ago 8. Pacemaker status 9. H/O mitral valve replacement 10 status post G-tube placement Plan: Replace K, check K after replacement Hold anti coagulants Patient is tolerating feeding continue present care Consultation Date/Type/Reason Admit Date/Time Nov 25, 2018 at 23:59 Initial Consult Date 12/09/18 Requesting Provider: SHAUN CHRISTENSEN DO Date/Time of Note DATE: 12/11/18 TIME: 16:32 24 HR Interval Summary Subjective hx not possible: pt critical Constitutional: improved, requiring IVF, requiring O2 Exam/Review of Systems Exam Vitals Vital Signs Date Temp Pulse Resp B/P (MAP) Pulse Ox O2 O2 Flow FiO2 Time Delivery Rate 12/11/18 96 23 100 30 16:06 12/11/18 97.9 126/82 Mechanical 16:00 (97) Ventilator Intake and Output 12/10/18 12/10/18 12/11/18 1515:00 23:00 07:00 IntakeIntake Total 460 ml 300 ml 265 ml OutputOutput Total 640 ml 360 ml 280 ml BalanceBalance -180 ml -60 ml -15 ml Constitutional: oriented Psych: no complaints ENMT: intubated Neck: non-tender Cardiovascular: regular rate and rhythm, nl pulses Musculoskeletal: nl extremities to inspection, nl gait and stance Neurological: [employer] II-XII intact, nl mental status, nl speech, nl strength Results Result Diagram: 12/11/18 0330 12/11/18 0330 Results 24hrs Laboratory Tests Test 12/10/18 17:32 12/10/18 20:08 12/11/18 01:22 12/11/18 03:30 Bedside Glucose 93 110 93 White Blood Count 8.6 Red Blood Count 2.97 L Hemoglobin 8.6 L Hematocrit 26.9 L Mean Corpuscular 90.6 Volume Mean Corpuscular 29.0 Hemoglobin Mean Corpuscular 32.0 Hemoglobin Concent Red Cell Distribution 19.1 H Width Platelet Count 102 L Mean Platelet Volume 11.8 H Immature Granulocytes 0.200 % Neutrophils % 96.3 H Lymphocytes % 1.2 L Monocytes % 2.3 Eosinophils % 0.0 Basophils % 0.0 Nucleated Red Blood 0.0 Cells % Immature Granulocytes 0.020 # Neutrophils # 8.3 H Lymphocytes # 0.1 L Monocytes # 0.2 L Eosinophils # 0.0 Basophils # 0.0 Nucleated Red Blood 0.0 Cells # Sodium Level 137 Potassium Level 3.3 L Chloride Level 102 Carbon Dioxide Level 30 Anion Gap 5 Blood Urea Nitrogen 22 H Creatinine 0.39 L Est Glomerular Filtrat Rate mL/min Glucose Level 62 #L Calcium Level 7.3 L Phosphorus Level 3.0 Magnesium Level 2.1 Test 12/11/18 05:46 12/11/18 09:09 12/11/18 13:13 Bedside Glucose 80 110 132 Medications Medication Current Medications Ondansetron HCl (Zofran Inj) 4 mg Q6H PRN IV NAUSEA AND/OR VOMITING; Start 11/26/18 at 01:00 Albuterol (Ventolin Hfa) 4 puff Q4H RESP THERAPY INH Last administered on at 14:24; Admin Dose 4 PUFF; Start 11/26/18 at 01:00 Albuterol (Ventolin Hfa) 4 puff Q2H RESP THERAPY PRN INH SHORTNESS OF BREATH Last administered on 11/28/18at 01:53; Admin Dose 4 PUFF; Start 11/26/18 at 01:00 Methylprednisolone Sodium Succinate (Solu-Medrol) 60 mg Q6 IV Last administered on 12/11/18at 13:15; Admin Dose 60 MG; Start 11/26/18 at 06:00 Acetaminophen (Tylenol Liquid) 650 mg Q6H PRN PO PAIN LEVEL 1-3 OR FEVER; Start 11/26/18 at 01:00 Morphine Sulfate (morphine) 2 mg Q4H PRN IV PAIN LEVEL 7-10; Start 11/26/18 at 01:00 Lorazepam (Ativan) 1 mg Q2H PRN IV ANXIETY; Start 11/26/18 at 01:00 Enoxaparin Sodium (Lovenox) 40 mg DAILY SC Last administered on 12/09/18at 09:30; Admin Dose 40 MG; Start 11/26/18 at 09:00 Norepinephrine 250 ml @ 1.875 mls/ hr TITRATE IV Last administered on 12/06/18at 23:16; Admin Dose 9.375 MLS/HR; Start 11/26/18 at 09:00 Insulin Aspart (Novolog Insulin Pen) NOVOLOG *MILD* ALGORI... Q4 SC Last administered on 12/09/18at 20:43; Admin Dose 1 UNIT; Start 11/26/18 at 13:00 Phenylephrine HCl 40 mg/Dextrose 250 ml @ 37.5 mls/hr TITRATE IV Last adm inistered on 11/30/18at 02:35; Admin Dose 3 MLS/HR; Start 11/26/18 at 11:00 Fentanyl 100 ml @ 2.5 mls/hr TITRATE IV Last administered on 12/11/18at 16:12; Admin Dose 5 MLS/HR; Start 11/26/18 at 13:00 IV Flush (NS 10 ml) 10 ml PRN PRN IV IV PROTOCOL; Start 11/26/18 at 15:00 Lansoprazole (Prevacid) 30 mg DAILY@06 GTB Last administered on 12/11/18at 05:42; Admin Dose 30 MG; Start 11/28/18 at 06:00 Alendronate Sodium (Fosamax) 70 mg Mo@AC BREAKFAST PO Last administered on 12/09/18at 05:34; Admin Dose 70 MG; Start 12/02/18 at 07:00 Furosemide (Lasix) 20 mg BID DIURETICS IV Last administered on 12/07/18at 05:39; Admin Dose 20 MG; Start 12/03/18 at 08:00; Status Hold Miscellaneous Information 1 ea NOTE XX ; Start 12/05/18 at 15:00 Glucose (Glutose) 15 gm Q15M PRN PO DECREASED GLUCOSE; Start 12/05/18 at 15:00 Glucose (Glutose) 22.5 gm Q15M PRN PO DECREASED GLUCOSE; Start 12/05/18 at 15:00 Dextrose (D50w Syringe) 25 ml Q15M PRN IV DECREASED GLUCOSE; Start 12/05/18 at 15:00 Dextrose (D50w Syringe) 50 ml Q15M PRN IV DECREASED GLUCOSE; Start 12/05/18 at 15:00 Glucagon (Glucagen) 1 mg Q15M PRN IM DECREASED GLUCOSE; Start 12/05/18 at 15:00 Glucose (Glutose) 15 gm Q15M PRN BUCCAL DECREASED GLUCOSE; Start 12/05/18 at 15:00 Calcitriol (Rocaltrol Liquid (Ped)) 0.25 mcg DAILY GTB Last administered on 12/11/18 09:10; Admin Dose 0.25 MCG; Start 12/07/18 at 09:00 Midodrine (Proamatine) 10 mg TID@,13,17 GTB Last administered on 12/11/18 14:29; Admin Dose 10 MG; Start 12/07/18 at 09:00 Acetazolamide (Diamox) 500 mg DAILY IV Last administered on 12/09/18 09:27; Admin Dose 500 MG; Start 12/09/18 at 09:00; Status Hold Insulin Glargine (Lantus) 12 units DAILY@1700 SC ; Start 12/10/18 at 17:00 Multivitamins (Multivitamin) 30 ml DAILY GTB Last administered on 12/11/18 09:09; Admin Dose 30 ML; Start 12/11/18 at 09:00 Ascorbic Acid (Vitamin C) 500 mg DAILY GTB Last administered on 12/11/18 09:12; Admin Dose 500 MG; Start 12/11/18 at 09:00 Folic Acid (Folic Acid) 1 mg DAILY GTB Last administered on 12/11/18 09:12; Admin Dose 1 MG; Start 12/11/18 at 09:00 Zinc Sulfate (Zinc Sulfate) 220 mg DAILY GTB Last administered on 12/11/18 09:12; Admin Dose 220 MG; Start 12/11/18 at 09:00 GOMEZ BARBA MD December 11, 2018 16:34
[2018-12-11] MEDS: INSULIN GLARGINE [LANTus] (100 UNITS/ML) SYG SC SCH (18:03)
--- NOTE | 2018-12-11 19:49 | PN ---
Date/Time of Note Date/Time of Note DATE: 12/11/18 TIME: 19:48 Assessment/Plan Lines/Catheters IV Catheter Type (from Nrsg): PICC Line Das in Place (from Nrsg): Yes Assessment/Plan Assessment/Plan Respiratory failure Patient for ovarian cancer Unable to come off the ventilator secondary to comorbidities Will proceed with tracheostomy Discussed with the family and the nursing staff Subjective 24 Hr Interval Summary Constitutional: no complaints, improved, ambulates, BM, flatus, urine output Pain Control: mild Exam/Review of Systems Vital Signs Vitals Vital Signs Date Temp Pulse Resp B/P (MAP) Pulse Ox O2 O2 Flow FiO2 Time Delivery Rate 12/11/18 106 23 119/80 100 Mechanical 18:00 (93) Ventilator 12/11/18 30 17:45 12/11/18 97.9 16:00 Intake and Output 12/10/18 12/10/18 12/11/18 1414:59 22:59 06:59 IntakeIntake Total 460 ml 280 ml 290 ml OutputOutput Total 670 ml 385 ml 325 ml BalanceBalance -210 ml -105 ml -35 ml Exam Respiratory: clear to auscultation, normal air movement Gastrointestinal: soft, nl liver, spleen, non-tender Musculoskeletal: nl extremities to inspection, nl gait and stance Extremities: normal pulses Results Result Diagram: 12/11/1832912/11/18329 KIMBERLEY LARIOS MD December 11, 2018 19:49
[2018-12-12] VITALS (36 sets, daily range): BP systolic 85–134; BP diastolic 55–80; PULSE 61–87; RESP 14–19
[2018-12-12] MEDS: INSULIN ASPART [NOVOLOG] 3 ML PEN SC SCH ×6 (01:00→21:00)
[2018-12-12] MEDS: METHYLPREDNISOLONE 125 MG INJ IV SCH ×2 (01:13→06:03)
[2018-12-12] MEDS: BALSAM PERU/CASTOR OIL 60 GM TUBE TOP SCH ×3 (01:13→21:41)
[2018-12-12] MEDS: ALBUTEROL HFA 8 GM INHALER INH SCH ×6 (01:15→21:44)
[2018-12-12] MEDS: LANSOPRAZOLE 30 MG CAP GTB SCH (06:03)
--- NOTE | 2018-12-12 07:21 | CONS ---
Consult Date/Type/Reason Admit Date/Time Nov 25, 2018 at 23:59 Initial Consult Date 11/26/18 Type of Consultation: cv Requesting Provider: SHAUN CHRISTENSEN DO Date/Time of Note DATE: 12/12/18 TIME: 07:18 Subjective Interventional cardiology follow-up progress note Subjective: Case discussed with staff and telemetry was reviewed. Patient remains in sinus rhythm with ventricular pacing. HR is STABLE now Patient has had short episode of monomorphic nonsustained V. tach which did not appear to be symptomatic pt denies any chest pain or pressure Patient has remained intubated and has not been able to be weaned off the vent d/w physicians s/p PEG Objective: General: Elderly female cachectic looking appears to be older than stated age status post intubation on the vent HEENT: NC/AT. pupils are equal. round. NECK: NO JVD. no stridor. CV: RRR. systolic murmur; no gallop or rubs. PULM: no wheezing + rhonchi more on the right GI: SOFT, NT, ND, no rebound or guarding Extremity: 1+ B/L ANKLE edema. no clubbing. neuro: Drowsy status sedated but arousable Psych: calm rectal: deferred : normal Chest x-ray 12/06/18 shows Overall, no significant change in appearance of multifocal bilateral pulmonary opacities and small pleural effusions CXR . 1. Unchanged airspace opacities of the bilateral, right greater than left perihilar regions and lower lobes. 2. Stable small to moderate right and small left-sided pleural effusions. Echocardiogram was personally reviewed which showed normal LV size ejection fraction of about 45-50% EKG was personally reviewed which shows ventricular paced rhythm CT Chest 11/27: 1. Findings compatible with bilateral bronchiolitis and bronchopneumonia, greater on the right, significantly increased when compared to the prior CT. Mild bilateral pleural effusions, grossly stable. 2. Stable mild cardiomegaly. Coronary arterial and aortic atherosclerotic calcifications. 3. Lines and tubes in place, as above. 4. No evidence of mass or lymphadenopathy Objective Vitals Vital Signs Date Temp Pulse Resp B/P (MAP) Pulse Ox O2 O2 Flow FiO2 Time Delivery Rate 12/12/18 69 14 85/58 (67) 97 Mechanical 06:00 Ventilator 12/12/18 30 05:42 12/12/18 97.5 04:00 Intake and Output 12/11/18 12/11/18 12/12/18 1515:00 23:00 07:00 IntakeIntake Total 500 ml 440 ml 145 ml OutputOutput Total 160 ml 175 ml 150 ml BalanceBalance 340 ml 265 ml -5 ml Results/Medications Result Diagram: 12/12/18 0429 12/12/18 0429 Results 24 hrs Laboratory Tests Test 12/11/18 09:09 12/11/18 13:13 12/11/18 17:48 12/12/18 01:10 Bedside Glucose 110 132 147 133 Test 12/12/18 04:29 12/12/18 06:02 White Blood Count 7.5 Red Blood Count 2.60 L Hemoglobin 7.6 L Hematocrit 23.9 L Mean Corpuscular Volume 91.9 Mean Corpuscular 29.2 Hemoglobin Mean Corpuscular 31.8 L Hemoglobin Concent Red Cell Distribution 19.4 H Width Platelet Count 78 #L Mean Platelet Volume 11.7 H Immature Granulocytes % 0.300 Neutrophils % Lymphocytes % Monocytes % Eosinophils % Basophils % Nucleated Red Blood 0.0 Cells % Immature Granulocytes # 0.020 Neutrophils # Lymphocytes # Monocytes # Eosinophils # Basophils # Nucleated Red Blood Cells # Sodium Level 136 Potassium Level 4.1 Chloride Level 105 Carbon Dioxide Level 31 Anion Gap 0 L Blood Urea Nitrogen 22 H Creatinine 0.35 L Est Glomerular Filtrat Rate mL/min Glucose Level 105 # Calcium Level 7.1 L Phosphorus Level 3.0 Magnesium Level 2.1 Bedside Glucose 99 Home Meds Reported Medications Acetaminophen* (Tylenol*) 325 Mg Tablet, 650 MG PO Q6H PRN for PAIN AND OR ELEVATED TEMP, TAB 11/30/18 Magnesium Oxide* (Mag-Oxide*) 400 Mg Tablet, 400 MG PO BID, TAB 11/30/18 Levothyroxine Sodium* (Synthroid*) 50 Mcg Tablet, 50 MCG PO BEFORE BREAKFAST, #30 TAB 11/30/18 Potassium Chloride* (Potassium Chloride*) 8 Meq Capsule.er, 10 MEQ PO BID, CAP 11/30/18 Furosemide* (Furosemide*) 40 Mg Tablet, 40 MG PO DAILY, TAB 11/30/18 Cyanocobalamin (B12 Health Booster) 1,000 Mcg/15 Ml Oral.susp, 5000 MCG PO DAILY 11/30/18 Atorvastatin Calcium (Atorvastatin Calcium) 10 Mg Tablet, 10 MG PO QHS, #30 TAB 11/30/18 Aspirin* (Devon Aspirin* Chew) 81 Mg Tab.chew, 81 MG PO BID, TAB.CHEW 11/30/18 Acetazolamide* (Acetazolamide*) 250 Mg Tablet, 250 MG PO DAILY, #60 TAB 11/30/18 Alendronate Sodium* (Fosamax*) 70 Mg Tablet, 70 MG PO Q7D, #4 TAB 11/30/18 Medications Current Medications Ondansetron HCl (Zofran Inj) 4 mg Q6H PRN IV NAUSEA AND/OR VOMITING; Start 11/26/18 at 01:00 Albuterol (Ventolin Hfa) 4 puff Q4H RESP THERAPY INH Last administered on 12/12/18at 05:42; Admin Dose 4 PUFF; Start 11/26/18 at 01:00 Albuterol (Ventolin Hfa) 4 puff Q2H RESP THERAPY PRN INH SHORTNESS OF BREATH Last administered on 11/28/18at 01:53; Admin Dose 4 PUFF; Start 11/26/18 at 01:00 Methylprednisolone Sodium Succinate (Solu-Medrol) 60 mg Q6 IV Last administered on 12/12/18at 06:03; Admin Dose 60 MG; Start 11/26/18 at 06:00 Acetaminophen (Tylenol Liquid) 650 mg Q6H PRN PO PAIN LEVEL 1-3 OR FEVER; Start 11/26/18 at 01:00 Morphine Sulfate (morphine) 2 mg Q4H PRN IV PAIN LEVEL 7-10; Start 11/26/18 at 01:00 Lorazepam (Ativan) 1 mg Q2H PRN IV ANXIETY Last administered on 12/11/18at 18:21; Admin Dose 1 MG; Start 11/26/18 at 01:00 Enoxaparin Sodium (Lovenox) 40 mg DAILY SC Last administered on 12/09/18 09:30; Admin Dose 40 MG; Start 11/26/18 at 09:00 Norepinephrine 250 ml @ 1.875 mls/ hr TITRATE IV Last administered on 12/06/18at 23:16; Admin Dose 9.375 MLS/HR; Start 11/26/18 at 09:00 Insulin Aspart (Novolog Insulin Pen) NOVOLOG *MILD* ALGORI... Q4 SC Last administered on 12/11/18at 18:02; Admin Dose 1 UNIT; Start 11/26/18 at 13:00 Phenylephrine HCl 40 mg/Dextrose 250 ml @ 37.5 mls/hr TITRATE IV Last administered on 11/30/18at 02:35; Admin Dose 3 MLS/HR; Start 11/26/18 at 11:00 Fentanyl 100 ml @ 2.5 mls/hr TITRATE IV Last administered on 12/11/18at 16:12; Admin Dose 5 MLS/HR; Start 11/26/18 at 13:00 IV Flush (NS 10 ml) 10 ml PRN PRN IV IV PROTOCOL; Start 11/26/18 at 15:00 Lansoprazole (Prevacid) 30 mg DAILY@06 GTB Last administered on 12/12/18at 06:03; Admin Dose 30 MG; Start 11/28/18 at 06:00 Alendronate Sodium (Fosamax) 70 mg Mo@AC BREAKFAST PO Last administered on 12/09/18at 05:34; Admin Dose 70 MG; Start 12/02/18 at 07:00 Furosemide (Lasix) 20 mg BID DIURETICS IV Last administered on 12/07/18at 05:39; Admin Dose 20 MG; Start 12/03/18 at 08:00; Status Hold Miscellaneous Information 1 ea NOTE XX ; Start 12/05/18 at 15:00 Glucose (Glutose) 15 gm Q15M PRN PO DECREASED GLUCOSE; Start 12/05/18 at 15:00 Glucose (Glutose) 22.5 gm Q15M PRN PO DECREASED GLUCOSE; Start 12/05/18 at 15:00 Dextrose (D50w Syringe) 25 ml Q15M PRN IV DECREASED GLUCOSE; Start 12/05/18 at 15:00 Dextrose (D50w Syringe) 50 ml Q15M PRN IV DECREASED GLUCOSE; Start 12/05/18 at 15:00 Glucagon (Glucagen) 1 mg Q15M PRN IM DECREASED GLUCOSE; Start 12/05/18 at 15:00 Glucose (Glutose) 15 gm Q15M PRN BUCCAL DECREASED GLUCOSE; Start 12/05/18 at 1 5:00 Calcitriol (Rocaltrol Liquid (Ped)) 0.25 mcg DAILY GTB Last administered on 12/11/18at 09:10; Admin Dose 0.25 MCG; Start 12/07/18 at 09:00 Midodrine (Proamatine) 10 mg TID@,13,17 GTB Last administered on 12/11/18 18:00; Admin Dose 10 MG; Start 12/07/18 at 09:00 Acetazolamide (Diamox) 500 mg DAILY IV Last administered on 12/09/18 09:27; Admin Dose 500 MG; Start 12/09/18 at 09:00; Status Hold Insulin Glargine (Lantus) 12 units DAILY@1700 SC Last administered on 12/11/18 18:03; Admin Dose 12 UNITS; Start 12/10/18 at 17:00 Multivitamins (Multivitamin) 30 ml DAILY GTB Last administered on 12/11/18 09:09; Admin Dose 30 ML; Start 12/11/18 at 09:00 Ascorbic Acid (Vitamin C) 500 mg DAILY GTB Last administered on 12/11/18 09:12; Admin Dose 500 MG; Start 12/11/18 at 09:00 Folic Acid (Folic Acid) 1 mg DAILY GTB Last administered on 12/11/18 09:12; Admin Dose 1 MG; Start 12/11/18 at 09:00 Zinc Sulfate (Zinc Sulfate) 220 mg DAILY GTB Last administered on 12/11/18 09:12; Admin Dose 220 MG; Start 12/11/18 at 09:00 Dextrose/Sodium Chloride 1,000 ml @ 50 mls/hr Q20H IV ; Start 12/12/18 at 07:00 Assessment/Plan Hospital Course (Demo Recall) Acute on chronic hypoxemic/hypercapnic respiratory failure status post intubation currently on the ventilator Shock: Appears to be septic Pneumonia Pleural effusion History of mitral valve replacement currently functioning normally History of most likely heart block status post permanent pacemaker ([place]) Encephalopathy Cachexia and malnutrition History of rheumatoid arthritis History of ovarian cancer stage IV Thyroid disorder Acute renal failure: stable now Diabetes anemia dysphagia: s/p PEG 12/10/18 Recommendations: Vent support to be continued to be managed as per pulmonary. UNABLE to wean off. awaiting trach Antibiotic management as per internal medicine pulmonary and infectious disease consultants BP is stable now off pressors REPLACE Lytes prn . Diabetic management as per internal medicine GI and DVT prophylaxis Continue with ICU care Awaiting tracheostomy today NAYLA SAUL MD [facility] NAYLA SAUL MD December 12, 2018 07:21
[2018-12-12] MEDS: DEXTROSE 5%-0.45% NACL 1,000 ML IV SCH (07:55)
--- NOTE | 2018-12-12 08:46 | PN ---
DATE: 12/12/2018 SUBJECTIVE: The patient is scheduled for a trach placement today. No acute events overnight. No he moptysis, hematemesis or hematochezia. OBJECTIVE: VITAL SIGNS: Blood pressure is 85/58, respirations 14, pulse 69, temperature 97.5. HEENT: Head is normocephalic. NECK: Supple. HEART: Regular rate. LUNGS: Show diminished breath sounds at the base. ABDOMEN: Soft, nontender to palpation without rebound or guarding. EXTREMITIES: Negative for clubbing, cyanosis. Positive edema, improving. DERMATOLOGIC: No rashes. MUSCULOSKELETAL: No joint effusion. NEUROLOGIC: No change in exam. MEDICATIONS: Reviewed. LABORATORY DATA: From 12/12/18 has been reviewed. IMAGING STUDIES: The patient's upper extremity ultrasound is negative for deep vein thrombosis. ASSESSMENT AND PLAN: 1. Sepsis secondary to pneumonia, bacteremia and fungal urinary tract infection. The patient is cur rently off pressor support. Continue antimicrobial antifungal therapy. Continue midodrine. Follow up with Infectious Disease. 2. Ventilator-dependent respiratory failure. The patient is pending trach placement. The patient's vent setting has been reviewed. Continue to monitor. 3. Dysphagia, status post PEG. Continue tube feeding. 4. Volume overload, improving. Continue intermittent diuretic therapy as needed. 5. Hypokalemia. Continue to monitor and replete. 6. Metabolic alkalemia, improving. We will give intermittent Diamox as needed. 7. Left upper extremity swelling. The patient is status post Doppler venous ultrasound, which was n egative for deep vein thrombosis. 8. Anemia. Monitor hemoglobin and hematocrit levels. 9. Nonoliguric acute kidney injury. Etiology is secondary to hemodynamics. Renal function is impro mary ann. Continue to monitor. 10. Non-ST elevation myocardial infarction. Continue medical management. 11. History of arrhythmia, status post pacemaker. 12. Diabetes. Continue current insulin regimen. 13. History of ovarian cancer stage IV, status post chemotherapy and developing surgery. 14. History of hypothyroidism. 15. History of arthritis. 16. Gastrointestinal and deep vein thrombosis prophylaxis. Dictated By: SHAUN CHRISTENSEN DO NR/NTS Conf#: [id number] DID#: [id number] CC: JESS SAUCEDO MD; STEVIE REN MD;*EndCC*
[2018-12-12] MEDS: MIDODRINE 5 MG TAB GTB SCH ×3 (08:49→17:00)
[2018-12-12] MEDS: CALCITRIOL (1 MCG/ML PO SYG) GTB SCH (09:00)
[2018-12-12] MEDS: FOLIC ACID 1 MG TAB GTB SCH (09:00)
[2018-12-12] MEDS: ENOXAPARIN 40 MG/0.4 ML SYG SC SCH (09:00)
[2018-12-12] MEDS: MULTIVITAMINS 30 ML CUP GTB SCH (09:00)
[2018-12-12] MEDS: ZINC SULFATE 220 MG CAP GTB SCH (09:00)
[2018-12-12] MEDS: ASCORBIC ACID 500 MG TAB GTB SCH (09:00)
--- NOTE | 2018-12-12 09:57 | CONS ---
Assessment/Plan Assessment/Plan Assessment/Plan (Daily) Assessment/Plan Hospital Course (Demo Recall) 83 yo female with Vent dependent respiratory failure needs a PEG 1. Dysphasia -PEG placement done yesterday on 12/10/2018 2. Pneumonia -resp cx positive for E. Coli and Nicole albicans 3. UTI -Nicole albicans 4. Vent dependent respiratory failure -plan for trach 5. Anemia due to chronic disease -negative FOB No evidence of active bleeding 6. Diabetes mellitus 7. H/o ovarian cancer with total hysterectomy 20 years ago 8. Pacemaker status 9. H/O mitral valve replacement 10 status post G-tube placement Plan: Replace K, check K after replacement Hold anti coagulants Patient is tolerating feeding continue present care Monitor H&H and transfuse on as-needed basis Patient is scheduled for trach today Consultation Date/Type/Reason Admit Date/Time Nov 25, 2018 at 23:59 Initial Consult Date 12/09/18 Requesting Provider: SHAUN CHRISTENSEN DO Date/Time of Note DATE: 12/12/18 TIME: 09:56 24 HR Interval Summary Constitutional: no complaints, improved Exam/Review of Systems Exam Vitals Vital Signs Date Temp Pulse Resp B/P (MAP) Pulse Ox O2 O2 Flow FiO2 Time Delivery Rate 12/12/18 70 14 111/63 100 Mechanical 09:00 (79) Ventilator 12/12/18 98.4 08:00 12/12/18 30 08:00 Intake and Output 12/11/18 12/11/18 12/12/18 1515:00 23:00 07:00 IntakeIntake Total 500 ml 440 ml 170 ml OutputOutput Total 160 ml 175 ml 150 ml BalanceBalance 340 ml 265 ml 20 ml Constitutional: alert, oriented ENMT: intubated Neck: supple, non-tender Respiratory: normal air movement Cardiovascular: regular rate and rhythm Gastrointestinal: soft, nl liver, spleen, non-tender Musculoskeletal: nl extremities to inspection, nl gait and stance Results Result Diagram: 12/12/18 0429 12/12/18 0429 Results 24hrs Laboratory Tests Test 12/11/18 13:13 12/11/18 17:48 12/12/18 01:10 12/12/18 04:00 Bedside Glucose 132 147 133 Iron Level 30 L Total Iron Binding 153 L Capacity Percent Iron Saturation 20 L Test 12/12/18 04:29 12/12/18 06:02 12/12/18 08:58 White Blood Count 7.5 Red Blood Count 2.60 L Hemoglobin 7.6 L Hematocrit 23.9 L Mean Corpuscular Volume 91.9 Mean Corpuscular 29.2 Hemoglobin Mean Corpuscular 31.8 L Hemoglobin Concent Red Cell Distribution 19.4 H Width Platelet Count 78 #L Mean Platelet Volume 11.7 H Immature Granulocytes % 0.300 Neutrophils % Segmented Neutrophils 98 H % (Manual) Band Neutrophils % 2 (Manual) Lymphocytes % Monocytes % Eosinophils % Basophils % Nucleated Red Blood 0.0 Cells % Immature Granulocytes # 0.020 Neutrophils # Neutrophils # (Manual) 7.4 Band Neutrophils # 0.1 Lymphocytes # Monocytes # Eosinophils # Basophils # Nucleated Red Blood Cells # Platelet Estimate DECREASED Polychromasia 1+ Poikilocytosis 2+ Anisocytosis 1+ Spherocytes 1+ Ovalocytes 2+ Sodium Level 136 Potassium Level 4.1 Chloride Level 105 Carbon Dioxide Level 31 Anion Gap 0 L Blood Urea Nitrogen 22 H Creatinine 0.35 L Est Glomerular Filtrat Rate mL/min Glucose Level 105 # Calcium Level 7.1 L Phosphorus Level 3.0 Magnesium Level 2.1 Bedside Glucose 99 82 Medications Medication Current Medications Ondansetron HCl (Zofran Inj) 4 mg Q6H PRN IV NAUSEA AND/OR VOMITING; Start 11/26/18 at 01:00 Albuterol (Ventolin Hfa) 4 puff Q4H RESP THERAPY INH Last administered on 12/12/18at 09:11; Admin Dose 4 PUFF; Start 11/26/18 at 01:00 Albuterol (Ventolin Hfa) 4 puff Q2H RESP THERAPY PRN INH SHORTNESS OF BREATH Last administered on 11/28/18at 01:53; Admin Dose 4 PUFF; Start 11/26/18 at 01:00 Methylprednisolone Sodium Succinate (Solu-Medrol) 60 mg Q6 IV Last administered on 12/12/18at 06:03; Admin Dose 60 MG; Start 11/26/18 at 06:00 Acetaminophen (Tylenol Liquid) 650 mg Q6H PRN PO PAIN LEVEL 1-3 OR FEVER; Start 11/26/18 at 01:00 Morphine Sulfate (morphine) 2 mg Q4H PRN IV PAIN LEVEL 7-10; Start 11/26/18 at 01:00 Lorazepam (Ativan) 1 mg Q2H PRN IV ANXIETY Last administered on 12/11/18 18:21; Admin Dose 1 MG; Start 11/26/18 at 01:00 Enoxaparin Sodium (Lovenox) 40 mg DAILY SC Last administered on 12/09/18 09:30; Admin Dose 40 MG; Start 11/26/18 at 09:00 Norepinephrine 250 ml @ 1.875 mls/ hr TITRATE IV Last administered on 12/06/18 23:16; Admin Dose 9.375 MLS/HR; Start 11/26/18 at 09:00 Insulin Aspart (Novolog Insulin Pen) NOVOLOG *MILD* ALGORI... Q4 SC Last administered on 12/11/18 18:02; Admin Dose 1 UNIT; Start 11/26/18 at 13:00 Phenylephrine HCl 40 mg/Dextrose 250 ml @ 37.5 mls/hr TITRATE IV Last administered on 11/30/18 02:35; Admin Dose 3 MLS/HR; Start 11/26/18 at 11:00 Fentanyl 100 ml @ 2.5 mls/hr TITRATE IV Last administered on 12/11/18at 16:12; Admin Dose 5 MLS/HR; Start 11/26/18 at 13:00 IV Flush (NS 10 ml) 10 ml PRN PRN IV IV PROTOCOL; Start 11/26/18 at 15:00 Lansoprazole (Prevacid) 30 mg DAILY@06 GTB Last administered on 12/12/18 06:03; Admin Dose 30 MG; Start 11/28/18 at 06:00 Alendronate Sodium (Fosamax) 70 mg Mo@AC BREAKFAST PO Last administered on 12/09/18 05:34; Admin Dose 70 MG; Start 12/02/18 at 07:00 Furosemide (Lasix) 20 mg BID DIURETICS IV Last administered on 12/07/18 05:39; Admin Dose 20 MG; Start 12/03/18 at 08:00; Status Hold Miscellaneous Information 1 ea NOTE XX ; Start 12/05/18 at 15:00 Glucose (Glutose) 15 gm Q15M PRN PO DECREASED GLUCOSE; Start 12/05/18 at 15:00 Glucose (Glutose) 22.5 gm Q15M PRN PO DECREASED GLUCOSE; Start 12/05/18 at 15:00 Dextrose (D50w Syringe) 25 ml Q15M PRN IV DECREASED GLUCOSE; Start 12/05/18 at 15:00 Dextrose (D50w Syringe) 50 ml Q15M PRN IV DECREASED GLUCOSE; Start 12/05/18 at 15:00 Glucagon (Glucagen) 1 mg Q15M PRN IM DECREASED GLUCOSE; Start 12/05/18 at 15:00 Glucose (Glutose) 15 gm Q15M PRN BUCCAL DECREASED GLUCOSE; Start 12/05/18 at 15:00 Calcitriol (Rocaltrol Liquid (Ped)) 0.25 mcg DAILY GTB Last administered on 12/11/18 09:10; Admin Dose 0.25 MCG; Start 12/07/18 at 09:00 Midodrine (Proamatine) 10 mg TID@,,17 GTB Last administered on 12/12/18 08:49; Admin Dose 10 MG; Start 12/07/18 at 09:00 Acetazolamide (Diamox) 500 mg DAILY IV Last administered on 12/09/18 09:27; Admin Dose 500 MG; Start 12/09/18 at 09:00; Status Hold Insulin Glargine (Lantus) 12 units DAILY@1700 SC Last administered on 12/11/18 18:03; Admin Dose 12 UNITS; Start 12/10/18 at 17:00 Multivitamins (Multivitamin) 30 ml DAILY GTB Last administered on 12/11/18 09: 09; Admin Dose 30 ML; Start 12/11/18 at 09:00 Ascorbic Acid (Vitamin C) 500 mg DAILY GTB Last administered on 12/11/18 09:12; Admin Dose 500 MG; Start 12/11/18 at 09:00 Folic Acid (Folic Acid) 1 mg DAILY GTB Last administered on 12/11/18 09:12; Admin Dose 1 MG; Start 12/11/18 at 09:00 Zinc Sulfate (Zinc Sulfate) 220 mg DAILY GTB Last administered on 12/11/18 09:12; Admin Dose 220 MG; Start 12/11/18 at 09:00 Dextrose/Sodium Chloride 1,000 ml @ 50 mls/hr Q20H IV Last administered on 12/12/18at 07:55; Admin Dose 50 MLS/HR; Start 12/12/18 at 07:00 GOMEZ BARBA MD December 12, 2018 09:57
--- NOTE | 2018-12-12 10:41 | PREAC ---
Date/Time of Note Date/Time of Note DATE: 12/12/18 TIME: 10: Anesthesia Eval and Record Evaluation Time Pre-Procedure Interview DATE: 12/12/18 TIME: 10: Age 83 Sex female NPO: 8 hrs Preoperative diagnosis respiratory failure Planned procedure Tracheostomy placement Past Medical History Past Medical History: Includes (PICC line in place) Cardio: PR, CAD, PPM/AICD, CHF, Other (valve replacement) Pulm: Sleep Apnea Neuro: Other (encephalopathy) GI: Other (Peg tube in place) Heme: Anemia Surgery & Anesthesia Issues No known issue Meds Anticoagulation: No Beta Tila within 24 hr: No Reason Beta Tila not given: Pt. not on B-Tila Reported Medications Acetaminophen* (Tylenol*) 325 Mg Tablet, 650 MG PO Q6H PRN for PAIN AND OR ELEVATED TEMP, TAB 11/30/18 Magnesium Oxide* (Mag-Oxide*) 400 Mg Tablet, 400 MG PO BID, TAB 11/30/18 Levothyroxine Sodium* (Synthroid*) 50 Mcg Tablet, 50 MCG PO BEFORE BREAKFAST, #30 TAB 11/30/18 Potassium Chloride* (Potassium Chloride*) 8 Meq Capsule.er, 10 MEQ PO BID, CAP 11/30/18 Furosemide* (Furosemide*) 40 Mg Tablet, 40 MG PO DAILY, TAB 11/30/18 Cyanocobalamin (B12 Health Booster) 1,000 Mcg/15 Ml Oral.susp, 5000 MCG PO DAILY 11/30/18 Atorvastatin Calcium (Atorvastatin Calcium) 10 Mg Tablet, 10 MG PO QHS, #30 TAB 11/30/18 Aspirin* (Devon Aspirin* Chew) 81 Mg Tab.chew, 81 MG PO BID, TAB.CHEW 11/30/18 Acetazolamide* (Acetazolamide*) 250 Mg Tablet, 250 MG PO DAILY, #60 TAB 11/30/18 Alendronate Sodium* (Fosamax*) 70 Mg Tablet, 70 MG PO Q7D, #4 TAB 11/30/18 Current Medications Ondansetron HCl (Zofran Inj) 4 mg Q6H PRN IV NAUSEA AND/OR VOMITING; Start 11/26/18 at 01:00 Albuterol (Ventolin Hfa) 4 puff Q4H RESP THERAPY INH Last administered on 12/12/18at 09:11; Admin Dose 4 PUFF; Start 11/26/18 at 01:00 Albuterol (Ventolin Hfa) 4 puff Q2H RESP THERAPY PRN INH SHORTNESS OF BREATH Last administered on 11/28/18 01:53; Admin Dose 4 PUFF; Start 11/26/18 at 01:00 Methylprednisolone Sodium Succinate (Solu-Medrol) 60 mg Q6 IV Last administered on 12/12/18 06:03; Admin Dose 60 MG; Start 11/26/18 at 06:00 Acetaminophen (Tylenol Liquid) 650 mg Q6H PRN PO PAIN LEVEL 1-3 OR FEVER; Start 11/26/18 at 01:00 Morphine Sulfate (morphine) 2 mg Q4H PRN IV PAIN LEVEL 7-10; Start 11/26/18 at 01:00 Lorazepam (Ativan) 1 mg Q2H PRN IV ANXIETY Last administered on 12/11/18 18:21; Admin Dose 1 MG; Start 11/26/18 at 01:00 Enoxaparin Sodium (Lovenox) 40 mg DAILY SC Last administered on 12/09/18at 0 9:30; Admin Dose 40 MG; Start 11/26/18 at 09:00 Norepinephrine 250 ml @ 1.875 mls/ hr TITRATE IV Last administered on 12/06/18 23:16; Admin Dose 9.375 MLS/HR; Start 11/26/18 at 09:00 Insulin Aspart (Novolog Insulin Pen) NOVOLOG *MILD* ALGORI... Q4 SC Last administered on 12/11/18 18:02; Admin Dose 1 UNIT; Start 11/26/18 at 13:00 Phenylephrine HCl 40 mg/Dextrose 250 ml @ 37.5 mls/hr TITRATE IV Last administered on 11/30/18at 02:35; Admin Dose 3 MLS/HR; Start 11/26/18 at 11:00 Fentanyl 100 ml @ 2.5 mls/hr TITRATE IV Last administered on 12/11/18 16:12; Admin Dose 5 MLS/HR; Start 11/26/18 at 13:00 IV Flush (NS 10 ml) 10 ml PRN PRN IV IV PROTOCOL; Start 11/26/18 at 15:00 Lansoprazole (Prevacid) 30 mg DAILY@06 GTB Last administered on 12/12/18 06:03; Admin Dose 30 MG; Start 11/28/18 at 06:00 Alendronate Sodium (Fosamax) 70 mg Mo@AC BREAKFAST PO Last administered on 12/09/18at 05:34; Admin Dose 70 MG; Start 12/02/18 at 07:00 Furosemide (Lasix) 20 mg BID DIURETICS IV Last administered on 12/07/18at 05:39; Admin Dose 20 MG; Start 12/03/18 at 08:00; Status Hold Miscellaneous Information 1 ea NOTE XX ; Start 12/05/18 at 15:00 Glucose (Glutose) 15 gm Q15M PRN PO DECREASED GLUCOSE; Start 12/05/18 at 15:00 Glucose (Glutose) 22.5 gm Q15M PRN PO DECREASED GLUCOSE; Start 12/05/18 at 15:00 Dextrose (D50w Syringe) 25 ml Q15M PRN IV DECREASED GLUCOSE; Start 12/05/18 at 15:00 Dextrose (D50w Syringe) 50 ml Q15M PRN IV DECREASED GLUCOSE; Start 12/05/18 at 15:00 Glucagon (Glucagen) 1 mg Q15M PRN IM DECREASED GLUCOSE; Start 12/05/18 at 15:00 Glucose (Glutose) 15 gm Q15M PRN BUCCAL DECREASED GLUCOSE; Start 12/05/18 at 15:00 Calcitriol (Rocaltrol Liquid (Ped)) 0.25 mcg DAILY GTB Last administered on 12/11/18at 09:10; Admin Dose 0.25 MCG; Start 12/07/18 at 09:00 Midodrine (Proamatine) 10 mg TID@,13,17 GTB Last administered on 12/12/18at 08:49; Admin Dose 10 MG; Start 12/07/18 at 09:00 Acetazolamide (Diamox) 500 mg DAILY IV Last administered on 12/09/18at 09:27; Admin Dose 500 MG; Start 12/09/18 at 09:00; Status Hold Insulin Glargine (Lantus) 12 units DAILY@1700 SC Last administered on 12/11/18at 18:03; Admin Dose 12 UNITS; Start 12/10/18 at 17:00 Multivitamins (Multivitamin) 30 ml DAILY GTB Last administered on 12/11/18at 09:09; Admin Dose 30 ML; Start 12/11/18 at 09:00 Ascorbic Acid (Vitamin C) 500 mg DAILY GTB Last administered on 12/11/18at 09:12; Admin Dose 500 MG; Start 12/11/18 at 09:00 Folic Acid (Folic Acid) 1 mg DAILY GTB Last administered on 12/11/18at 09:12; Admin Dose 1 MG; Start 12/11/18 at 09:00 Zinc Sulfate (Zinc Sulfate) 220 mg DAILY GTB Last administered on 12/11/18at 09:12; Admin Dose 220 MG; Start 12/11/18 at 09:00 Dextrose/Sodium Chloride 1,000 ml @ 50 mls/hr Q20H IV Last administered on 12/12/18at 07:55; Admin Dose 50 MLS/HR; Start 12/12/18 at 07:00 Meds reviewed: Yes Allergies Coded Allergies: No Known Allergy (Unverified , 11/23/18) Allergies Reviewed: Yes Labs/Studies Labs Reviewed: Reviewed by anesthesiologist Result Diagram: 12/12/18 0429 12/12/18 0429 Laboratory Tests 12/12/18 04:29 test: N/A Studies: ECG (afib/flutter and V paced rhythm), CXR (ET tube, right PICC line and NG tube remain in place.; Right-sided volume loss, scarring, bilateral interstitial infiltrates and small pleural effusions. No significant interval change.) Pre-procedure Exam Last vitals Vital Signs Date Temp Pulse Resp B/P (MAP) Pulse Ox O2 O2 Flow FiO2 Time Delivery Rate 12/12/18 70 14 111/63 100 Mechanical 09:00 (79) Ventilator 12/12/18 98.4 08:00 12/12/18 30 08:00 Airway: Adequate mouth opening, Adequate thyromental dist Mallampati: Mallampati III Teeth: Normal Lung: Normal Heart: Normal ASA Physical Status ASA physical status: 4 Emergency: None Planned Anesthetic General/MAC: ETT (ETT in situ) Pre-operative Attestations Prior to commencing anesthesia and surgery, the patient was re-evaluated, there was verification of: *The patient's identity *The results of appropriate recent lab work and preoperative vital signs *The above evaluation not changing prior to induction *Anesthetic plan, risk benefits, alternative and complications discussed with patient/family; questions answered; patient/family understands, accepts and wishes to proceed. BOYD PHILLIP December 12, 2018 10:37
--- NOTE | 2018-12-12 10:44 | CONS ---
Assessment/Plan Assessment/Plan Assessment/Plan (Daily) Ventilator setting; AC of 14, tidal volume 450, PEEP of 5, 30% FiO2. Patient is currently on fentanyl 50 mics per hour. Assessment and recommendations; 1. Patient admitted with severe hypercapnic respiratory failure with bilateral pneumonia status post treatment. There has been significant radiological improvement. 2. Patient has failed multiple weaning trials from ventilator. 3. Severely emaciated state. 4. Prior CABG. 5. History of prior pacemaker placement. 6. Anemia and severe thrombocytopenia. 7. NSTEMI. 8. History of hypothyroidism. 9. Status post G-tube placement. Continue current supportive care. Patient scheduled for tracheostomy today. Overall prognosis is guarded. Consultation Date/Type/Reason Admit Date/Time Nov 25, 2018 at 23:59 Initial Consult Date 11/26/18 Type of Consult Pulmonary/critical care Requesting Provider: SHAUN CHRISTENSEN DO Date/Time of Note DATE: 12/12/18 TIME: 10:41 24 HR Interval Summary Free Text/Dictation Patient's condition is stable. Remains orally intubated and sedated. Has remained hemodynamically stable. General exam; elderly woman, orally intubated, sedated, currently in no distress . Exam/Review of Systems Exam Vitals Vital Signs Date Temp Pulse Resp B/P (MAP) Pulse Ox O2 O2 Flow FiO2 Time Delivery Rate 12/12/18 70 14 111/63 100 Mechanical 09:00 (79) Ventilator 12/12/18 98.4 08:00 12/12/18 30 08:00 Intake and Output 12/11/18 12/11/18 12/12/18 1515:00 23:00 07:00 IntakeIntake Total 500 ml 440 ml 170 ml OutputOutput Total 160 ml 175 ml 150 ml BalanceBalance 340 ml 265 ml 20 ml Exam H EENT exam; supple neck, no JVD. No lymphadenopathy. Midline trachea. No thyromegaly. Orally intubated. Patient is edentulous. Chest exam; diminished breath sounds bilaterally. S1-S2 audible, no murmurs. There is a well-healed sternal scar. Pacemaker in left chest wall. Abdomen exam; soft, no organomegaly. G-tube in place. Bowel sounds audible. Abdomen is nondistended. Extremity exam; no peripheral edema. [employer] exam; patient is sedated. Results Result Diagram: 12/12/18 0429 12/12/18 0429 Results 24hrs Laboratory Tests Test 12/11/18 13:13 12/11/18 17:48 12/12/18 01:10 12/12/18 04:00 Bedside Glucose 132 147 133 Iron Level 30 L Total Iron Binding 153 L Capacity Percent Iron Saturation 20 L Test 12/12/18 04:29 12/12/18 06:02 12/12/18 08:58 White Blood Count 7.5 Red Blood Count 2.60 L Hemoglobin 7.6 L Hematocrit 23.9 L Mean Corpuscular Volume 91.9 Mean Corpuscular 29.2 Hemoglobin Mean Corpuscular 31.8 L Hemoglobin Concent Red Cell Distribution 19.4 H Width Platelet Count 78 #L Mean Platelet Volume 11.7 H Immature Granulocytes % 0.300 Neutrophils % Segmented Neutrophils 98 H % (Manual) Band Neutrophils % 2 (Manual) Lymphocytes % Monocytes % Eosinophils % Basophils % Nucleated Red Blood 0.0 Cells % Immature Granulocytes # 0.020 Neutrophils # Neutrophils # (Manual) 7.4 Band Neutrophils # 0.1 Lymphocytes # Monocytes # Eosinophils # Basophils # Nucleated Red Blood Cells # Platelet Estimate DECREASED Polychromasia 1+ Poikilocytosis 2+ Anisocytosis 1+ Spherocytes 1+ Ovalocytes 2+ Sodium Level 136 Potassium Level 4.1 Chloride Level 105 Carbon Dioxide Level 31 Anion Gap 0 L Blood Urea Nitrogen 22 H Creatinine 0.35 L Est Glomerular Filtrat Rate mL/min Glucose Level 105 # Calcium Level 7.1 L Phosphorus Level 3.0 Magnesium Level 2.1 Bedside Glucose 99 82 Medications Medication Current Medications Ondansetron HCl (Zofran Inj) 4 mg Q6H PRN IV NAUSEA AND/OR VOMITING; Start 11/26/18 at 01:00 Albuterol (Ventolin Hfa) 4 puff Q4H RESP THERAPY INH Last administered on 12/12/18at 09:11; Admin Dose 4 PUFF; Start 11/26/18 at 01:00 Albuterol (Ventolin Hfa) 4 puff Q2H RESP THERAPY PRN INH SHORTNESS OF BREATH Last administered on 11/28/18at 01:53; Admin Dose 4 PUFF; Start 11/26/18 at 01:00 Methylprednisolone Sodium Succinate (Solu-Medrol) 60 mg Q6 IV Last administered on 12/12/18at 06:03; Admin Dose 60 MG; Start 11/26/18 at 06:00 Acetaminophen (Tylenol Liquid) 650 mg Q6H PRN PO PAIN LEVEL 1-3 OR FEVER; Start 11/26/18 at 01:00 Morphine Sulfate (morphine) 2 mg Q4H PRN IV PAIN LEVEL 7-10; Start 11/26/18 at 01:00 Lorazepam (Ativan) 1 mg Q2H PRN IV ANXIETY Last administered on 12/11/18 18:21; Admin Dose 1 MG; Start 11/26/18 at 01:00 Enoxaparin Sodium (Lovenox) 40 mg DAILY SC Last administered on 12/09/18 09:30; Admin Dose 40 MG; Start 11/26/18 at 09:00 Norepinephrine 250 ml @ 1.875 mls/ hr TITRATE IV Last administered on 12/06/18 23:16; Admin Dose 9.375 MLS/HR; Start 11/26/18 at 09:00 Insulin Aspart (Novolog Insulin Pen) NOVOLOG *MILD* ALGORI... Q4 SC Last administered on 12/11/18 18:02; Admin Dose 1 UNIT; Start 11/26/18 at 13:00 Phenylephrine HCl 40 mg/Dextrose 250 ml @ 37.5 mls/hr TITRATE IV Last administered on 11/30/18 02:35; Admin Dose 3 MLS/HR; Start 11/26/18 at 11:00 Fentanyl 100 ml @ 2.5 mls/hr TITRATE IV Last administered on 12/11/18 16:12; Admin Dose 5 MLS/HR; Start 11/26/18 at 13:00 IV Flush (NS 10 ml) 10 ml PRN PRN IV IV PROTOCOL; Start 11/26/18 at 15:00 Lansoprazole (Prevacid) 30 mg DAILY@06 GTB Last administered on 12/12/18 06:03; Admin Dose 30 MG; Start 11/28/18 at 06:00 Alendronate Sodium (Fosamax) 70 mg Mo@AC BREAKFAST PO Last administered on 12/09/18 05:34; Admin Dose 70 MG; Start 12/02/18 at 07:00 Furosemide (Lasix) 20 mg BID DIURETICS IV Last administered on 12/07/18 05:39; Admin Dose 20 MG; Start 12/03/18 at 08:00; Status Hold Miscellaneous Information 1 ea NOTE XX ; Start 12/05/18 at 15:00 Glucose (Glutose) 15 gm Q15M PRN PO DECREASED GLUCOSE; Start 12/05/18 at 15:00 Glucose (Glutose) 22.5 gm Q15M PRN PO DECREASED GLUCOSE; Start 12/05/18 at 15:00 Dextrose (D50w Syringe) 25 ml Q15M PRN IV DECREASED GLUCOSE; Start 12/05/18 at 15:00 Dextrose (D50w Syringe) 50 ml Q15M PRN IV DECREASED GLUCOSE; Start 12/05/18 at 15:00 Glucagon (Glucagen) 1 mg Q15M PRN IM DECREASED GLUCOSE; Start 12/05/18 at 15:00 Glucose (Glutose) 15 gm Q15M PRN BUCCAL DECREASED GLUCOSE; Start 12/05/18 at 15:00 Calcitriol (Rocaltrol Liquid (Ped)) 0.25 mcg DAILY GTB Last administered on 12/11/18at 09:10; Admin Dose 0.25 MCG; Start 12/07/18 at 09:00 Midodrine (Proamatine) 10 mg TID@,13,17 GTB Last administered on 12/12/18at 08:49; Admin Dose 10 MG; Start 12/07/18 at 09:00 Acetazolamide (Diamox) 500 mg DAILY IV Last administered on 12/09/18 09:27; Admin Dose 500 MG; Start 12/09/18 at 09:00; Status Hold Insulin Glargine (Lantus) 12 units DAILY@1700 SC Last administered on 12/11/18at 18:03; Admin Dose 12 UNITS; Start 12/10/18 at 17:00 Multivitamins (Multivitamin) 30 ml DAILY GTB Last administered on 12/11/18 09: 09; Admin Dose 30 ML; Start 12/11/18 at 09:00 Ascorbic Acid (Vitamin C) 500 mg DAILY GTB Last administered on 12/11/18 09:12; Admin Dose 500 MG; Start 12/11/18 at 09:00 Folic Acid (Folic Acid) 1 mg DAILY GTB Last administered on 12/11/18 09:12; Admin Dose 1 MG; Start 12/11/18 at 09:00 Zinc Sulfate (Zinc Sulfate) 220 mg DAILY GTB Last administered on 5/1/19at 09:12; Admin Dose 220 MG; Start 12/11/18 at 09:00 Dextrose/Sodium Chloride 1,000 ml @ 50 mls/hr Q20H IV Last administered on 12/12/18at 07:55; Admin Dose 50 MLS/HR; Start 12/12/18 at 07:00 ENRIQUE WINKLER December 12, 2018 10:44
[2018-12-12] MEDS: FENTAnyl (DRIP) 1000 mcg/100mL 100 ML IV SCH (13:45)
--- NOTE | 2018-12-12 14:52 | CONS ---
Assessment/Plan Assessment/Plan Hospital Course (Demo Recall) No acute events looks comfortable no fevers Microbiology: Urine cx + Nicole albicans, sputum culture grew Nicole albicans/E coli===> s/p abx Indwelling: Endotracheal tube, NG tube, Das, right upper extremity PICC line Physical examination: This is a chronically ill-appearing wasted elderly woman who is intubated sedated in no distress. Head atraumatic normocephalic neck is supple chest rise symmetrical breath sounds diminished bases heart: S1-S2 abdomen soft bowel sounds present extremities without cyanosis Assessment: 1. S/p sepsis 2. Acute on chronic hypoxemic respiratory failure 3. Bilateral pneumonia 4. Nicole albicans UTI 5. Coronary artery disease with a history of mitral valve replacement Plan: Remains stable, scheduled for tracheostomy today DW family Consultation Date/Type/Reason Admit Date/Time Nov 25, 2018 at 23:59 Initial Consult Date 11/26/18 Type of Consult id Requesting Provider: SHAUN CHRISTENSEN DO Date/Time of Note DATE: 12/12/18 TIME: 14:51 Exam/Review of Systems Exam Vitals Vital Signs Date Temp Pulse Resp B/P (MAP) Pulse Ox O2 O2 Flow FiO2 Time Delivery Rate 12/12/18 69 14 125/66 98 Mechanical 13:00 (85) Ventilator 12/12/18 30 12:50 12/12/18 98.7 12:00 Intake and Output 12/11/18 12/11/18 12/12/18 1515:00 23:00 07:00 IntakeIntake Total 500 ml 440 ml 170 ml OutputOutput Total 160 ml 175 ml 150 ml BalanceBalance 340 ml 265 ml 20 ml Results Result Diagram: 12/12/18 0429 12/12/18 0429 Results 24hrs Laboratory Tests Test 12/11/18 17:48 12/12/18 01:10 12/12/18 04:00 12/12/18 04:29 Bedside Glucose 147 133 Iron Level 30 L Total Iron Binding 153 L Capacity Percent Iron Saturation 20 L White Blood Count 7.5 Red Blood Count 2.60 L Hemoglobin 7.6 L Hematocrit 23.9 L Mean Corpuscular Volume 91.9 Mean Corpuscular 29.2 Hemoglobin Mean Corpuscular 31.8 L Hemoglobin Concent Red Cell Distribution 19.4 H Width Platelet Count 78 #L Mean Platelet Volume 11.7 H Immature Granulocytes % 0.300 Neutrophils % Segmented Neutrophils 98 H % (Manual) Band Neutrophils % 2 (Manual) Lymphocytes % Monocytes % Eosinophils % Basophils % Nucleated Red Blood 0.0 Cells % Immature Granulocytes # 0.020 Neutrophils # Neutrophils # (Manual) 7.4 Band Neutrophils # 0.1 Lymphocytes # Monocytes # Eosinophils # Basophils # Nucleated Red Blood Cells # Platelet Estimate DECREASED Polychromasia 1+ Poikilocytosis 2+ Anisocytosis 1+ Spherocytes 1+ Ovalocytes 2+ Sodium Level 136 Potassium Level 4.1 Chloride Level 105 Carbon Dioxide Level 31 Anion Gap 0 L Blood Urea Nitrogen 22 H Creatinine 0.35 L Est Glomerular Filtrat Rate mL/min Glucose Level 105 # Calcium Level 7.1 L Phosphorus Level 3.0 Magnesium Level 2.1 Test 12/12/18 06:02 12/12/18 08:58 12/12/18 12:45 Bedside Glucose 99 82 94 Medications Medication Current Medications Ondansetron HCl (Zofran Inj) 4 mg Q6H PRN IV NAUSEA AND/OR VOMITING; Start 11/26/18 at 01:00 Albuterol (Ventolin Hfa) 4 puff Q4H RESP THERAPY INH Last administered on 12/12/18 12:51; Admin Dose 4 PUFF; Start 11/26/18 at 01:00 Albuterol (Ventolin Hfa) 4 puff Q2H RESP THERAPY PRN INH SHORTNESS OF BREATH Last administered on 11/28/18at 01:53; Admin Dose 4 PUFF; Start 11/26/18 at 01:00 Acetaminophen (Tylenol Liquid) 650 mg Q6H PRN PO PAIN LEVEL 1-3 OR FEVER; Start 11/26/18 at 01:00 Morphine Sulfate (morphine) 2 mg Q4H PRN IV PAIN LEVEL 7-10; Start 11/26/18 at 01:00 Lorazepam (Ativan) 1 mg Q2H PRN IV ANXIETY Last administered on 12/11/18 18:21; Admin Dose 1 MG; Start 11/26/18 at 01:00 Enoxaparin Sodium (Lovenox) 40 mg DAILY SC Last administered on 12/09/18 09:30; Admin Dose 40 MG; Start 11/26/18 at 09:00 Norepinephrine 250 ml @ 1.875 mls/ hr TITRATE IV Last administered on 4/26/19at 23:16; Admin Dose 9.375 MLS/HR; Start 11/26/18 at 09:00 Insulin Aspart (Novolog Insulin Pen) NOVOLOG *MILD* ALGORI... Q4 SC Last admin istered on 12/11/18at 18:02; Admin Dose 1 UNIT; Start 11/26/18 at 13:00 Phenylephrine HCl 40 mg/Dextrose 250 ml @ 37.5 mls/hr TITRATE IV Last administered on 11/30/18at 02:35; Admin Dose 3 MLS/HR; Start 11/26/18 at 11:00 Fentanyl 100 ml @ 2.5 mls/hr TITRATE IV Last administered on 12/12/18at 13:45; A dmin Dose 5 MLS/HR; Start 11/26/18 at 13:00 IV Flush (NS 10 ml) 10 ml PRN PRN IV IV PROTOCOL; Start 11/26/18 at 15:00 Lansoprazole (Prevacid) 30 mg DAILY@06 GTB Last administered on 12/12/18at 06:03; Admin Dose 30 MG; Start 11/28/18 at 06:00 Alendronate Sodium (Fosamax) 70 mg Mo@AC BREAKFAST PO Last administered on 12/09/18at 05:34; Admin Dose 70 MG; Start 12/02/18 at 07:00 Furosemide (Lasix) 20 mg BID DIURETICS IV Last administered on 12/07/18at 05:39; Admin Dose 20 MG; Start 12/03/18 at 08:00; Status Hold Miscellaneous Information 1 ea NOTE XX ; Start 12/05/18 at 15:00 Glucose (Glutose) 15 gm Q15M PRN PO DECREASED GLUCOSE; Start 12/05/18 at 15:00 Glucose (Glutose) 22.5 gm Q15M PRN PO DECREASED GLUCOSE; Start 12/05/18 at 15:00 Dextrose (D50w Syringe) 25 ml Q15M PRN IV DECREASED GLUCOSE; Start 12/05/18 at 15:00 Dextrose (D50w Syringe) 50 ml Q15M PRN IV DECREASED GLUCOSE; Start 12/05/18 at 15:00 Glucagon (Glucagen) 1 mg Q15M PRN IM DECREASED GLUCOSE; Start 12/05/18 at 15:00 Glucose (Glutose) 15 gm Q15M PRN BUCCAL DECREASED GLUCOSE; Start 12/05/18 at 15:00 Calcitriol (Rocaltrol Liquid (Ped)) 0.25 mcg DAILY GTB Last administered on 12/11/18 09:10; Admin Dose 0.25 MCG; Start 12/07/18 at 09:00 Midodrine (Proamatine) 10 mg TID@09,13,17 GTB Last administered on 12/12/18 14:02; Admin Dose 10 MG; Start 12/07/18 at 09:00 Acetazolamide (Diamox) 500 mg DAILY IV Last administered on 12/09/18 09:27; Admin Dose 500 MG; Start 12/09/18 at 09:00; Status Hold Insulin Glargine (Lantus) 12 units DAILY@1700 SC Last administered on 12/11/18 18:03; Admin Dose 12 UNITS; Start 12/10/18 at 17:00 Multivitamins (Multivitamin) 30 ml DAILY GTB Last administered on 12/11/18 09:09; Admin Dose 30 ML; Start 12/11/18 at 09:00 Ascorbic Acid (Vitamin C) 500 mg DAILY GTB Last administered on 12/11/18 09:12; Admin Dose 500 MG; Start 12/11/18 at 09:00 Folic Acid (Folic Acid) 1 mg DAILY GTB Last administered on 12/11/18 09:12; Admin Dose 1 MG; Start 12/11/18 at 09:00 Zinc Sulfate (Zinc Sulfate) 220 mg DAILY GTB Last administered on 12/11/18 09:12; Admin Dose 220 MG; Start 12/11/18 at 09:00 Dextrose/Sodium Chloride 1,000 ml @ 50 mls/hr Q20H IV Last administered on 12/12/18 07:55; Admin Dose 50 MLS/HR; Start 12/12/18 at 07:00 Methylprednisolone Sodium Succinate (Solu-Medrol) 40 mg Q12 IV ; Start 12/12/18 at 21:00 JODY BOYD NP December 12, 2018 14:52
[2018-12-12] MEDS ORDERED: PROPOFOL 20 ML ONE (17:44)
[2018-12-12] MEDS ORDERED: FENTAnyl 50 MCG/ML VIAL ONE (17:44)
[2018-12-12] MEDS ORDERED: CEFAZOLIN 1 GM INJ ONE (17:44)
[2018-12-12] MEDS ORDERED: ONDANSETRON 4 MG INJ ONE (17:45)
[2018-12-12] MEDS: INSULIN GLARGINE [LANTus] (100 UNITS/ML) SYG SC SCH (17:48)
[2018-12-12] MEDS ORDERED: LIDOCAINE 1%/EPI (1:100,000) (MDV) 20 ML ONE (18:02)
--- NOTE | 2018-12-12 19:19 | PAC ---
Date/Time of Note Date/Time of Note DATE: 12/12/18 TIME: 19:19 Post-Anesthesia Notes Post-Anesthesia Note Last documented vital signs Vital Signs Date Temp Pulse Resp B/P (MAP) Pulse Ox O2 O2 Flow FiO2 Time Delivery Rate 12/12/18 80 18 120/69 94 Mechanical 18:00 (86) Ventilator 12/12/18 30 16:48 12/12/18 98.8 16:00 Activity: WNL Respiratory function: WNL (TRACHED, VENTED) Cardiovascular function: WNL Mental status: Baseline Pain reasonably controlled: Yes Hydration appropriate: Yes Nausea/Vomiting absent: Yes Dewey Alcaraz M.D. December 12, 2018 19:19
--- NOTE | 2018-12-12 19:47 | OPR ---
Date/Time of Note Date/Time of Note DATE: 12/12/18 TIME: 19:45 Operative Report Procedure Date: December 12, 2018 Preoperative Diagnosis Respiratory failure Postoperative Diagnosis Same Operation/Procedure Performed Tracheostomy Surgeon see signature line Mailing Section Clerk None Anesthesia Type: general Estimated Blood Loss: none Transfusion none Specimen None Grafts/Implants none Complications none Pt Condition Post Procedure: stable Procedure Description Patient was placed in supine position prepped and draped in usual sterile fashion timeout was called I made a 1 cm incision horizontal fashion 1 fingerbreadth superior to the sternal notch incision was taken down to subcutaneous tissue which was then opened using Metzenbaum scissors access was gained into the trachea guidewire was advanced without any difficulty subcutaneous tissues were dilated Endotracheal tube was removed 8 cuffed tracheostomy tube advanced into the trach ea secured to skin using 2-0 nylon sutures and a trach tie Protective foam pad was applied patient tolerated procedure KIMBERLEY LARIOS MD December 12, 2018 19:47
[2018-12-12] MEDS: METHYLPREDNISOLONE 40 MG INJ IV SCH (21:41)
[2018-12-13] VITALS (35 sets, daily range): BP systolic 92–139; BP diastolic 54–99; PULSE 71–116; RESP 12–22
[2018-12-13] MEDS: ALBUTEROL HFA 8 GM INHALER INH SCH ×6 (01:36→21:33)
[2018-12-13] MEDS: INSULIN ASPART [NOVOLOG] 3 ML PEN SC SCH ×6 (01:54→20:30)
[2018-12-13] MEDS: DEXTROSE 5%-0.45% NACL 1,000 ML IV SCH (03:01)
[2018-12-13] MEDS: LANSOPRAZOLE 30 MG CAP GTB SCH (05:59)
--- NOTE | 2018-12-13 08:03 | PN ---
Date/Time of Note Date/Time of Note DATE: 12/13/18 TIME: 08:02 Assessment/Plan Lines/Catheters IV Catheter Type (from Nrsg): PICC Line Das in Place (from Nrsg): Yes Assessment/Plan Assessment/Plan Resp Failure SP tracheostomy trach site clean will continue trach care vent support Subjective 24 Hr Interval Summary Constitutional: improved Pain Control: mild Exam/Review of Systems Vital Signs Vitals Vital Signs Date Temp Pulse Resp B/P (MAP) Pulse Ox O2 O2 Flow FiO2 Time Delivery Rate 12/13/18 91 14 114/67 100 Mechanical 06:00 (83) Ventilator 12/13/18 30 05:18 12/13/18 97.8 04:00 Intake and Output 12/12/18 12/12/18 12/13/18 1515:00 23:00 07:00 IntakeIntake Total 440 ml 610 ml 745 ml OutputOutput Total 240 ml 305 ml 294 ml BalanceBalance 200 ml 305 ml 451 ml Exam Eyes: nl conjunctiva, EOMI, nl lids, nl sclera ENMT: nl external ears & nose, nl lips & teeth, nl nasal mucosa & septum, mucosa pink and moist Neck: supple, non-tender Respiratory: clear to auscultation, normal air movement Cardiovascular: regular rate and rhythm, nl pulses Gastrointestinal: soft, nl liver, spleen, non-tender Musculoskeletal: nl extremities to inspection, nl gait and stance Results Result Diagram: 12/13/18 0415 12/13/18 0415 KIMBERLEY LARIOS MD December 13, 2018 08:03
--- NOTE | 2018-12-13 08:26 | PN ---
DATE: 12/13/2018 SUBJECTIVE: The patient is stable. The patient had trach placement yesterday, tolerated well. No o ther acute events noted. No hemoptysis, hematemesis, or hematochezia. OBJECTIVE: VITAL SIGNS: Blood pressure is 114/67, respirations 14, pulse 91, temperature 97.8. HEENT: Head is normocephalic. NECK: Supple. HEART: Regular rate. LUNGS: Show diminished breath sounds at the base. ABDOMEN: Soft, nontender to palpation without rebound or guarding. EXTREMITIES: Negative for clubbing, cyanosis, positive edema. DERMATOLOGIC: No rashes. MUSCULOSKELETAL: No joint effusion. NEUROLOGIC: No change in exam. MEDICATIONS: The patient's medications have been reviewed. LABORATORY DATA: Shows a sodium 131, potassium 2.5. Glucose levels 197, calcium 6.2. White count 7 .6, hemoglobin 8.0, platelet count is 59. ASSESSMENT AND PLAN: 1. Sepsis secondary to pneumonia, bacteremia and fungal urinary tract infection. The patient's curr ent on pressor support. Continue antimicrobial and antifungal therapy. Follow up with tip jimenez. 2. Ventilator-dependent respiratory failure. The patient is status post trach. The patient's vent settings and ABG was reviewed. Continue to monitor. 3. Dysphagia, status post PEG. Continue tube feeding. 4. Volume overload. Continue intermittent diuretic therapy as needed. 5. Hypokalemia. Continue to monitor and replete. 6. Hypernatremia, etiology is secondary to hypoglycemia and hypertonic fluid. Plan is to discontinu e hypertonic fluids, improved glycemic control and monitor sodium levels closely. 7. Metabolic alkalemia, improving. The patient is status post Diamox. 8. Left upper extremity swelling. Doppler ultrasounds negative for deep vein thrombosis. Continue to monitor. Continue to elevate arm. 9. Anemia. Continue to monitor hemoglobin and hematocrit levels. 10. Thrombocytopenia. Etiology is unclear, possibly due to recent Lovenox use. Plan is to hold Tristin enox. We will place a hematology consult for evaluation. We will send out for HIT antibody. Monito r closely. 11. Nonoliguric acute kidney injury. Etiology is secondary to hemodynamics. Renal function is impr destin. Continue to monitor. 12. History of arrhythmia, status post pacemaker. 13. Diabetes. Continue current insulin regimen, adjust as needed. 14. History of ovarian cancer stage IV, status post chemotherapy and debulking surgery. 15. History of hypothyroidism. 16. History of arthritis. 17. Gastrointestinal and deep vein thrombosis prophylaxis. DISPOSITION: We will place a Lira consult. Dictated By: SHAUN CHRISTENSEN DO NR/SYBIL Conf#: [id number] DID#: [id number] CC: STEVIE REN MD; JESS SAUCEDO MD;*EndCC*
[2018-12-13] MEDS: ASCORBIC ACID 500 MG TAB GTB SCH (08:28)
[2018-12-13] MEDS: MULTIVITAMINS 30 ML CUP GTB SCH (08:28)
[2018-12-13] MEDS: CALCITRIOL (1 MCG/ML PO SYG) GTB SCH (08:28)
[2018-12-13] MEDS: METHYLPREDNISOLONE 40 MG INJ IV SCH ×2 (08:28→20:25)
[2018-12-13] MEDS: FOLIC ACID 1 MG TAB GTB SCH (08:28)
[2018-12-13] MEDS: MIDODRINE 5 MG TAB GTB SCH ×3 (08:28→18:45)
[2018-12-13] MEDS: ZINC SULFATE 220 MG CAP GTB SCH (08:29)
[2018-12-13] MEDS: BALSAM PERU/CASTOR OIL 60 GM TUBE TOP SCH ×2 (08:33→20:25)
--- NOTE | 2018-12-13 09:32 | CONS ---
Assessment/Plan Assessment/Plan Assessment/Plan (Daily) Ventilator settings; AC of 14, tidal volume 450, PEEP of 5, 30% FiO2. Assessment and recommendations; 1. Patient admitted with severe bilateral pneumonia and severe persistent hypercapnic respiratory failure status post tracheostomy because of failure to be weaned from ventilator despite multiple times. 2. Severely emaciated state. 3. History of prior CABG. 4. CHF and diabetes. 5. History of hypothyroidism. 6. History of cardiac arrhythmia, status post pacemaker placement in the past. 7. Status post G-tube placement as well. Continue current supportive care. Can be transferred to rehab center/fdc. Prognosis is guarded. Consultation Date/Type/Reason Admit Date/Time Nov 25, 2018 at 23:59 Initial Consult Date 11/26/18 Type of Consult Pulmonary/critical care Requesting Provider: SHAUN CHRISTENSEN DO Date/Time of Note DATE: 12/13/18 TIME: 09:30 24 HR Interval Summary Free Text/Dictation Patient condition is stable. Patient underwent tracheostomy yesterday. Surgery was uneventful. General exam; elderly woman, on ventilator via tracheostomy, awake, currently no distress. Exam/Review of Systems Exam Vitals Vital Signs Date Temp Pulse Resp B/P (MAP) Pulse Ox O2 O2 Flow FiO2 Time Delivery Rate 12/13/18 91 14 114/67 100 Mechanical 06:00 (83) Ventilator 12/13/18 30 05:18 12/13/18 97.8 04:00 Intake and Output 12/12/18 12/12/18 12/13/18 1515:00 23:00 07:00 IntakeIntake Total 440 ml 610 ml 745 ml OutputOutput Total 240 ml 305 ml 294 ml BalanceBalance 200 ml 305 ml 451 ml Exam H EENT exam; supple neck, no JVD. No lymphadenopathy. Midline trachea. No thyromegaly. Patient has a multiple carious teeth. Tracheostomy in place. Chest exam; diminished breath sounds bilaterally. S1-S2 audible, no murmurs. Regular rhythm. Abdomen exam; soft, G-tube in place. No organomegaly. Bowel sounds audible. Extremity exam; no peripheral edema clubbing. [employer] exam; patient is awake and responsive. Exhibiting severe generalized weakness. Results Result Diagram: 12/13/18 0415 12/13/18 0415 Results 24hrs Laboratory Tests Test 12/12/18 12:45 12/12/18 16:03 12/12/18 17:47 12/12/18 21:40 Bedside Glucose 94 102 105 128 Test 12/13/18 01:51 12/13/18 04:15 12/13/18 05:46 12/13/18 08:34 Bedside Glucose 169 197 208 White Blood Count 7.6 Red Blood Count 2.73 L Hemoglobin 8.0 L Hematocrit 25.6 L Mean Corpuscular 93.8 Volume Mean Corpuscular 29.3 Hemoglobin Mean Corpuscular 31.3 L Hemoglobin Concent Red Cell Distribution 19.4 H Width Platelet Count 59 #L Mean Platelet Volume 11.3 H Immature Granulocytes 0.300 % Neutrophils % Segmented Neutrophils 95 H % (Manual) Band Neutrophils % 3 (Manual) Lymphocytes % Monocytes % Monocytes % (Manual) 2 Eosinophils % Basophils % Nucleated Red Blood 0.0 Cells % Immature Granulocytes 0.020 # Neutrophils # Neutrophils # 7.2 (Manual) Band Neutrophils # 0.2 Lymphocytes # Monocytes # Monocytes # (Manual) 0.1 L Eosinophils # Basophils # Nucleated Red Blood Cells # Platelet Estimate SIG DECREASED Giant Platelets 1 H Polychromasia 1+ Poikilocytosis 2+ Anisocytosis 1+ Spherocytes 1+ Ovalocytes 1+ Sodium Level 131 L Potassium Level 3.5 Chloride Level 102 Carbon Dioxide Level 26 Anion Gap 3 L Blood Urea Nitrogen 15 Creatinine 0.25 L Est Glomerular Filtrat Rate mL/min Glucose Level 608 #*H Calcium Level 6.2 L Phosphorus Level 2.1 L Magnesium Level 1.8 Medications Medication Current Medications Ondansetron HCl (Zofran Inj) 4 mg Q6H PRN IV NAUSEA AND/OR VOMITING; Start 11/26/18 at 01:00 Albuterol (Ventolin Hfa) 4 puff Q4H RESP THERAPY INH Last administered on 12/13/18at 05:17; Admin Dose 4 PUFF; Start 11/26/18 at 01:00 Albuterol (Ventolin Hfa) 4 puff Q2H RESP THERAPY PRN INH SHORTNESS OF BREATH Last administered on 11/28/18at 01:53; Admin Dose 4 PUFF; Start 11/26/18 at 01:00 Acetaminophen (Tylenol Liquid) 650 mg Q6H PRN PO PAIN LEVEL 1-3 OR FEVER; Start 11/26/18 at 01:00 Morphine Sulfate (morphine) 2 mg Q4H PRN IV PAIN LEVEL 7-10; Start 11/26/18 at 01:00 Lorazepam (Ativan) 1 mg Q2H PRN IV ANXIETY Last administered on 12/11/18 18:21; Admin Dose 1 MG; Start 11/26/18 at 01:00 Enoxaparin Sodium (Lovenox) 40 mg DAILY SC Last administered on 12/09/18 09:30; Admin Dose 40 MG; Start 11/26/18 at 09:00; Status Hold Norepinephrine 250 ml @ 1.875 mls/ hr TITRATE IV Last administered on 12/06/18 23:16; Admin Dose 9.375 MLS/HR; Start 11/26/18 at 09:00 Insulin Aspart (Novolog Insulin Pen) NOVOLOG *MILD* ALGORI... Q4 SC Last administered on 12/13/18 08:38; Admin Dose 2 UNIT; Start 11/26/18 at 13:00 Phenylephrine HCl 40 mg/Dextrose 250 ml @ 37.5 mls/hr TITRATE IV Last a dministered on 11/30/18 02:35; Admin Dose 3 MLS/HR; Start 11/26/18 at 11:00 Fentanyl 100 ml @ 2.5 mls/hr TITRATE IV Last administered on 12/12/18 13:45; Admin Dose 5 MLS/HR; Start 11/26/18 at 13:00 IV Flush (NS 10 ml) 10 ml PRN PRN IV IV PROTOCOL; Start 11/26/18 at 15:00 Lansoprazole (Prevacid) 30 mg DAILY@06 GTB Last administered on 12/13/18 05:59; Admin Dose 30 MG; Start 11/28/18 at 06:00 Alendronate Sodium (Fosamax) 70 mg Mo@AC BREAKFAST PO Last administered on 12/09/18 05:34; Admin Dose 70 MG; Start 12/02/18 at 07:00 Furosemide (Lasix) 20 mg BID DIURETICS IV Last administered on 12/07/18 05:39; Admin Dose 20 MG; Start 12/03/18 at 08:00; Status Hold Miscellaneous Information 1 ea NOTE XX ; Start 12/05/18 at 15:00 Glucose (Glutose) 15 gm Q15M PRN PO DECREASED GLUCOSE; Start 12/05/18 at 15:00 Glucose (Glutose) 22.5 gm Q15M PRN PO DECREASED GLUCOSE; Start 12/05/18 at 15:00 Dextrose (D50w Syringe) 25 ml Q15M PRN IV DECREASED GLUCOSE; Start 12/05/18 at 15:00 Dextrose (D50w Syringe) 50 ml Q15M PRN IV DECREASED GLUCOSE; Start 12/05/18 at 15:00 Glucagon (Glucagen) 1 mg Q15M PRN IM DECREASED GLUCOSE; Start 12/05/18 at 15:00 Glucose (Glutose) 15 gm Q15M PRN BUCCAL DECREASED GLUCOSE; Start 12/05/18 at 15:00 Calcitriol (Rocaltrol Liquid (Ped)) 0.25 mcg DAILY GTB Last administered on 12/13/18 08:28; Admin Dose 0.25 MCG; Start 12/07/18 at 09:00 Midodrine (Proamatine) 10 mg TID@,13,17 GTB Last administered on 12/13/18 08:28; Admin Dose 10 MG; Start 12/07/18 at 09:00 Acetazolamide (Diamox) 500 mg DAILY IV Last administered on 12/09/18 09:27; Admin Dose 500 MG; Start 12/09/18 at 09:00; Status Hold Insulin Glargine (Lantus) 12 units DAILY@1700 SC Last administered on 12/12/18 17:48; Admin Dose 12 UNITS; Start 12/10/18 at 17:00 Multivitamins (Multivitamin) 30 ml DAILY GTB Last administered on 12/13/18 08:28; Admin Dose 30 ML; Start 12/11/18 at 09:00 Ascorbic Acid (Vitamin C) 500 mg DAILY GTB Last administered on 12/13/18 08:28; Admin Dose 500 MG; Start 12/11/18 at 09:00 Folic Acid (Folic Acid) 1 mg DAILY GTB Last administered on 12/13/18 08:28; Admin Dose 1 MG; Start 12/11/18 at 09:00 Zinc Sulfate (Zinc Sulfate) 220 mg DAILY GTB Last administered on 12/13/18 08:29; Admin Dose 220 MG; Start 12/11/18 at 09:00 Methylprednisolone Sodium Succinate (Solu-Medrol) 40 mg Q12 IV Last administered on 12/13/18at 08:28; Admin Dose 40 MG; Start 12/12/18 at 21:00 ENRIQUE WINKLER December 13, 2018 09:32
--- NOTE | 2018-12-13 12:58 | CONS ---
Assessment/Plan Assessment/Plan Hospital Course (Demo Recall) Lethargic, arousable in no distress no fevers overnight. WBC 7.6 neutrophils 95 BUN 15 creatinine 0.25 Microbiology: Urine cx + Nicole albicans, sputum culture grew Nicole albicans/E coli===> s/p abx Indwelling: Trach, PEG, Das, right upper extremity PICC line Physical examination: This is a chronically ill-appearing wasted elderly woman who is intubated sedated in no distress. Head atraumatic normocephalic neck is supple chest rise symmetrical breath sounds diminished bases heart: S1-S2 abdomen soft bowel sounds present extremities without cyanosis Assessment: 1. S/p sepsis 2. Acute on chronic hypoxemic respiratory failure, s/p trach 3. Bilateral pneumonia 4. Nicole albicans UTI 5. Coronary artery disease with a history of mitral valve replacement Plan: Remains stable, off abx, will monitor DW family Consultation Date/Type/Reason Admit Date/Time Nov 25, 2018 at 23:59 Initial Consult Date 11/26/18 Type of Consult id Requesting Provider: SHAUN CHRISTENSEN DO Date/Time of Note DATE: 12/13/18 TIME: 12:56 Exam/Review of Systems Exam Vitals Vital Signs Date Temp Pulse Resp B/P (MAP) Pulse Ox O2 O2 Flow FiO2 Time Delivery Rate 12/13/18 95 18 111/66 98 Mechanical 11:00 (81) Ventilator 12/13/18 98.3 08:00 12/13/18 30 08:00 Intake and Output 12/12/18 12/12/18 12/13/18 1515:00 23:00 07:00 IntakeIntake Total 440 ml 610 ml 775 ml OutputOutput Total 240 ml 305 ml 294 ml BalanceBalance 200 ml 305 ml 481 ml Results Result Diagram: 12/13/18 0415 12/13/18 0415 Results 24hrs Laboratory Tests Test 12/12/18 16:03 12/12/18 17:47 12/12/18 21:40 12/13/18 01:51 Bedside Glucose 102 105 128 169 Test 12/13/18 04:15 12/13/18 05:46 12/13/18 08:34 White Blood Count 7.6 Red Blood Count 2.73 L Hemoglobin 8.0 L Hematocrit 25.6 L Mean Corpuscular 93.8 Volume Mean Corpuscular 29.3 Hemoglobin Mean Corpuscular 31.3 L Hemoglobin Concent Red Cell Distribution 19.4 H Width Platelet Count 59 #L Mean Platelet Volume 11.3 H Immature Granulocytes 0.300 % Neutrophils % Segmented Neutrophils 95 H % (Manual) Band Neutrophils % 3 (Manual) Lymphocytes % Monocytes % Monocytes % (Manual) 2 Eosinophils % Basophils % Nucleated Red Blood 0.0 Cells % Immature Granulocytes 0.020 # Neutrophils # Neutrophils # 7.2 (Manual) Band Neutrophils # 0.2 Lymphocytes # Monocytes # Monocytes # (Manual) 0.1 L Eosinophils # Basophils # Nucleated Red Blood Cells # Platelet Estimate SIG DECREASED Giant Platelets 1 H Polychromasia 1+ Poikilocytosis 2+ Anisocytosis 1+ Spherocytes 1+ Ovalocytes 1+ Sodium Level 131 L Potassium Level 3.5 Chloride Level 102 Carbon Dioxide Level 26 Anion Gap 3 L Blood Urea Nitrogen 15 Creatinine 0.25 L Est Glomerular Filtrat Rate mL/min Glucose Level 608 #*H Calcium Level 6.2 L Phosphorus Level 2.1 L Magnesium Level 1.8 Bedside Glucose 197 208 Medications Medication Current Medications Ondansetron HCl (Zofran Inj) 4 mg Q6H PRN IV NAUSEA AND/OR VOMITING; Start 11/26/18 at 01:00 Albuterol (Ventolin Hfa) 4 puff Q4H RESP THERAPY INH Last administered on 12/13/18 09:53; Admin Dose 4 PUFF; Start 11/26/18 at 01:00 Albuterol (Ventolin Hfa) 4 puff Q2H RESP THERAPY PRN INH SHORTNESS OF BREATH Last administered on 11/28/18 01:53; Admin Dose 4 PUFF; Start 11/26/18 at 01:00 Acetaminophen (Tylenol Liquid) 650 mg Q6H PRN PO PAIN LEVEL 1-3 OR FEVER; Start 11/26/18 at 01:00 Morphine Sulfate (morphine) 2 mg Q4H PRN IV PAIN LEVEL 7-10; Start 11/26/18 at 01:00 Lorazepam (Ativan) 1 mg Q2H PRN IV ANXIETY Last administered on 12/11/18 18:21; Admin Dose 1 MG; Start 11/26/18 at 01:00 Enoxaparin Sodium (Lovenox) 40 mg DAILY SC Last administered on 12/09/18at 09:30; Admin Dose 40 MG; Start 11/26/18 at 09:00; Status Hold Norepinephrine 250 ml @ 1.875 mls/ hr TITRATE IV Last administered on 12/06/18at 23:16; Admin Dose 9.375 MLS/HR; Start 11/26/18 at 09:00 Insulin Aspart (Novolog Insulin Pen) NOVOLOG *MILD* ALGORI... Q4 SC Last administered on 12/13/18at 08:38; Admin Dose 2 UNIT; Start 11/26/18 at 13:00 Phenylephrine HCl 40 mg/Dextrose 250 ml @ 37.5 mls/hr TITRATE IV Last administered on 11/30/18at 02:35; Admin Dose 3 MLS/HR; Start 11/26/18 at 11:00 Fentanyl 100 ml @ 2.5 mls/hr TITRATE IV Last administered on 12/12/18at 13:45; Admin Dose 5 MLS/HR; Start 11/26/18 at 13:00 IV Flush (NS 10 ml) 10 ml PRN PRN IV IV PROTOCOL; Start 11/26/18 at 15:00 Lansoprazole (Prevacid) 30 mg DAILY@06 GTB Last administered on 12/13/18at 05:59; Admin Dose 30 MG; Start 11/28/18 at 06:00 Alendronate Sodium (Fosamax) 70 mg Mo@AC BREAKFAST PO Last administered on 12/09/18at 05:34; Admin Dose 70 MG; Start 12/02/18 at 07:00 Furosemide (Lasix) 20 mg BID DIURETICS IV Last administered on 12/07/18at 05:39; Admin Dose 20 MG; Start 12/03/18 at 08:00; Status Hold Miscellaneous Information 1 ea NOTE XX ; Start 12/05/18 at 15:00 Glucose (Glutose) 15 gm Q15M PRN PO DECREASED GLUCOSE; Start 12/05/18 at 15:00 Glucose (Glutose) 22.5 gm Q15M PRN PO DECREASED GLUCOSE; Start 12/05/18 at 15:00 Dextrose (D50w Syringe) 25 ml Q15M PRN IV DECREASED GLUCOSE; Start 12/05/18 at 15:00 Dextrose (D50w Syringe) 50 ml Q15M PRN IV DECREASED GLUCOSE; Start 12/05/18 at 15:00 Glucagon (Glucagen) 1 mg Q15M PRN IM DECREASED GLUCOSE; Start 12/05/18 at 15:00 Glucose (Glutose) 15 gm Q15M PRN BUCCAL DECREASED GLUCOSE; Start 12/05/18 at 15:00 Calcitriol (Rocaltrol Liquid (Ped)) 0.25 mcg DAILY GTB Last administered on 12/13/18 08:28; Admin Dose 0.25 MCG; Start 12/07/18 at 09:00 Midodrine (Proamatine) 10 mg TID@,,17 GTB Last administered on 12/13/18 08:28; Admin Dose 10 MG; Start 12/07/18 at 09:00 Acetazolamide (Diamox) 500 mg DAILY IV Last administered on 12/09/18 09:27; Admin Dose 500 MG; Start 12/09/18 at 09:00; Status Hold Insulin Glargine (Lantus) 12 units DAILY@1700 SC Last administered on 12/12/18 17:48; Admin Dose 12 UNITS; Start 12/10/18 at 17:00 Multivitamins (Multivitamin) 30 ml DAILY GTB Last administered on 12/13/18 08:28; Admin Dose 30 ML; Start 12/11/18 at 09:00 Ascorbic Acid (Vitamin C) 500 mg DAILY GTB Last administered on 12/13/18 08:28; Admin Dose 500 MG; Start 12/11/18 at 09:00 Folic Acid (Folic Acid) 1 mg DAILY GTB Last administered on 12/13/18 08:28; Admin Dose 1 MG; Start 12/11/18 at 09:00 Zinc Sulfate (Zinc Sulfate) 220 mg DAILY GTB Last administered on 12/13/18 08:29; Admin Dose 220 MG; Start 12/11/18 at 09:00 Methylprednisolone Sodium Succinate (Solu-Medrol) 40 mg Q12 IV Last administered on 12/13/18 08:28; Admin Dose 40 MG; Start 12/12/18 at 21:00 JODY BOYD NP December 13, 2018 12:58
--- NOTE | 2018-12-13 13:29 | CONS ---
Assessment/Plan Assessment/Plan Assessment/Plan (Daily) Hospital Course (Demo Recall) 83 yo female with Vent dependent respiratory failure needs a PEG 1. Dysphasia -PEG placement done yesterday on 12/10/2018 2. Pneumonia -resp cx positive for E. Coli and Nicole albicans 3. UTI -Nicole albicans 4. Vent dependent respiratory failure -plan for trach 5. Anemia due to chronic disease -negative FOB No evidence of active bleeding 6. Diabetes mellitus 7. H/o ovarian cancer with total hysterectomy 20 years ago 8. Pacemaker status 9. H/O mitral valve replacement 10 status post G-tube placement 11. Status post tracheostomy Plan: Replace K, check K after replacement Hold anti coagulants Patient is tolerating feeding continue present care Monitor H&H and transfuse on as-needed basis Continue present care Case was discussed with the son Consultation Date/Type/Reason Admit Date/Time Nov 25, 2018 at 23:59 Initial Consult Date 12/09/18 Requesting Provider: SHAUN CHRISTENSEN DO Date/Time of Note DATE: 12/13/18 TIME: 13:27 24 HR Interval Summary Free Text/Dictation Is. No GI bleeding, patient is tolerating feeding, no abdominal pain Subjective hx not possible: pt critical Constitutional: improved Exam/Review of Systems Exam Vitals Vital Signs Date Temp Pulse Resp B/P (MAP) Pulse Ox O2 O2 Flow FiO2 Time Delivery Rate 12/13/18 95 18 111/66 98 Mechanical 11:00 (81) Ventilator 12/13/18 98.3 08:00 12/13/18 30 08:00 Intake and Output 12/12/18 12/12/18 12/13/18 1515:00 23:00 07:00 IntakeIntake Total 440 ml 610 ml 775 ml OutputOutput Total 240 ml 305 ml 294 ml BalanceBalance 200 ml 305 ml 481 ml Constitutional: alert, oriented ENMT: intubated Results Result Diagram: 12/13/18 0415 12/13/18 0415 Results 24hrs Laboratory Tests Test 12/12/18 16:03 12/12/18 17:47 12/12/18 21:40 12/13/18 01:51 Bedside Glucose 102 105 128 169 Test 12/13/18 04:15 12/13/18 05:46 12/13/18 08:34 12/13/18 13:13 White Blood Count 7.6 Red Blood Count 2.73 L Hemoglobin 8.0 L Hematocrit 25.6 L Mean Corpuscular 93.8 Volume Mean Corpuscular 29.3 Hemoglobin Mean Corpuscular 31.3 L Hemoglobin Concent Red Cell Distribution 19.4 H Width Platelet Count 59 #L Mean Platelet Volume 11.3 H Immature Granulocytes 0.300 % Neutrophils % Segmented Neutrophils 95 H % (Manual) Band Neutrophils % 3 (Manual) Lymphocytes % Monocytes % Monocytes % (Manual) 2 Eosinophils % Basophils % Nucleated Red Blood 0.0 Cells % Immature Granulocytes 0.020 # Neutrophils # Neutrophils # 7.2 (Manual) Band Neutrophils # 0.2 Lymphocytes # Monocytes # Monocytes # (Manual) 0.1 L Eosinophils # Basophils # Nucleated Red Blood Cells # Platelet Estimate SIG DECREASED Giant Platelets 1 H Polychromasia 1+ Poikilocytosis 2+ Anisocytosis 1+ Spherocytes 1+ Ovalocytes 1+ Sodium Level 131 L Potassium Level 3.5 Chloride Level 102 Carbon Dioxide Level 26 Anion Gap 3 L Blood Urea Nitrogen 15 Creatinine 0.25 L Est Glomerular Filtrat Rate mL/min Glucose Level 608 #*H Calcium Level 6.2 L Phosphorus Level 2.1 L Magnesium Level 1.8 Bedside Glucose 197 208 230 H Medications Medication Current Medications Ondansetron HCl (Zofran Inj) 4 mg Q6H PRN IV NAUSEA AND/OR VOMITING; Start 11/26/18 at 01:00 Albuterol (Ventolin Hfa) 4 puff Q4H RESP THERAPY INH Last administered on 12/13/18 09:53; Admin Dose 4 PUFF; Start 11/26/18 at 01:00 Albuterol (Ventolin Hfa) 4 puff Q2H RESP THERAPY PRN INH SHORTNESS OF BREATH Last administered on 11/28/18at 01:53; Admin Dose 4 PUFF; Start 11/26/18 at 01:00 Acetaminophen (Tylenol Liquid) 650 mg Q6H PRN PO PAIN LEVEL 1-3 OR FEVER; Start 11/26/18 at 01:00 Morphine Sulfate (morphine) 2 mg Q4H PRN IV PAIN LEVEL 7-10; Start 11/26/18 at 01:00 Lorazepam (Ativan) 1 mg Q2H PRN IV ANXIETY Last administered on 12/11/18at 18:21; Admin Dose 1 MG; Start 11/26/18 at 01:00 Enoxaparin Sodium (Lovenox) 40 mg DAILY SC Last administered on 12/09/18 09:30; Admin Dose 40 MG; Start 11/26/18 at 09:00; Status Hold Norepinephrine 250 ml @ 1.875 mls/ hr TITRATE IV Last administered on 12/06/18 23:16; Admin Dose 9.375 MLS/HR; Start 11/26/18 at 09:00 Insulin Aspart (Novolog Insulin Pen) NOVOLOG *MILD* ALGORI... Q4 SC Last administered on 12/13/18 13:17; Admin Dose 3 UNIT; Start 11/26/18 at 13:00 Phenylephrine HCl 40 mg/Dextrose 250 ml @ 37.5 mls/hr TITRATE IV Last administered on 11/30/18 02:35; Admin Dose 3 MLS/HR; Start 11/26/18 at 11:00 Fentanyl 100 ml @ 2.5 mls/hr TITRATE IV Last administered on 12/12/18 13:45; Admin Dose 5 MLS/HR; Start 11/26/18 at 13:00 IV Flush (NS 10 ml) 10 ml PRN PRN IV IV PROTOCOL; Start 11/26/18 at 15:00 Lansoprazole (Prevacid) 30 mg DAILY@06 GTB Last administered on 12/13/18 05:59; Admin Dose 30 MG; Start 11/28/18 at 06:00 Alendronate Sodium (Fosamax) 70 mg Mo@AC BREAKFAST PO Last administered on 12/09/18 05:34; Admin Dose 70 MG; Start 12/02/18 at 07:00 Furosemide (Lasix) 20 mg BID DIURETICS IV Last administered on 12/07/18at 05 :39; Admin Dose 20 MG; Start 12/03/18 at 08:00; Status Hold Miscellaneous Information 1 ea NOTE XX ; Start 12/05/18 at 15:00 Glucose (Glutose) 15 gm Q15M PRN PO DECREASED GLUCOSE; Start 12/05/18 at 15:00 Glucose (Glutose) 22.5 gm Q15M PRN PO DECREASED GLUCOSE; Start 12/05/18 at 15:00 Dextrose (D50w Syringe) 25 ml Q15M PRN IV DECREASED GLUCOSE; Start 12/05/18 at 15:00 Dextrose (D50w Syringe) 50 ml Q15M PRN IV DECREASED GLUCOSE; Start 12/05/18 at 15:00 Glucagon (Glucagen) 1 mg Q15M PRN IM DECREASED GLUCOSE; Start 12/05/18 at 15:00 Glucose (Glutose) 15 gm Q15M PRN BUCCAL DECREASED GLUCOSE; Start 12/05/18 at 15:00 Calcitriol (Rocaltrol Liquid (Ped)) 0.25 mcg DAILY GTB Last administered on 12/13/18 08:28; Admin Dose 0.25 MCG; Start 12/07/18 at 09:00 Midodrine (Proamatine) 10 mg TID@,13,17 GTB Last administered on 12/13/18 08:28; Admin Dose 10 MG; Start 12/07/18 at 09:00 Acetazolamide (Diamox) 500 mg DAILY IV Last administered on 12/09/18 09:27; Admin Dose 500 MG; Start 12/09/18 at 09:00; Status Hold Insulin Glargine (Lantus) 12 units DAILY@1700 SC Last administered on 12/12/18 17:48; Admin Dose 12 UNITS; Start 12/10/18 at 17:00 Multivitamins (Multivitamin) 30 ml DAILY GTB Last administered on 12/13/18 08:28; Admin Dose 30 ML; Start 12/11/18 at 09:00 Ascorbic Acid (Vitamin C) 500 mg DAILY GTB Last administered on 12/13/18 08:28; Admin Dose 500 MG; Start 12/11/18 at 09:00 Folic Acid (Folic Acid) 1 mg DAILY GTB Last administered on 12/13/18 08:28; Admin Dose 1 MG; Start 12/11/18 at 09:00 Zinc Sulfate (Zinc Sulfate) 220 mg DAILY GTB Last administered on 12/13/18 08:2 9; Admin Dose 220 MG; Start 12/11/18 at 09:00 Methylprednisolone Sodium Succinate (Solu-Medrol) 40 mg Q12 IV Last administered on 12/13/18 08:28; Admin Dose 40 MG; Start 12/12/18 at 21:00 GOMEZ BARBA MD December 13, 2018 13:29
--- NOTE | 2018-12-13 14:52 | CONS ---
Consult Date/Type/Reason Admit Date/Time Nov 25, 2018 at 23:59 Initial Consult Date 11/26/18 Type of Consultation: cv Requesting Provider: SHAUN CHRISTENSEN DO Date/Time of Note DATE: 12/13/18 TIME: 14:51 Subjective Interventional cardiology follow-up progress note Subjective: Case discussed with staff and telemetry was reviewed. Patient remains in sinus rhythm with ventricular pacing. HR is STABLE now pt denies any chest pain or pressure D/W SON s/p PEG 12/10.19 S/P Trach and is still inICU Objective: General: Elderly female cachectic looking appears to be older than stated age status post trach on the vent HEENT: NC/AT. pupils are equal. round. NECKs/p trach . no stridor. CV: RRR. systolic murmur; no gallop or rubs. PULM: no wheezing + rhonchi more on the right GI: SOFT, NT, ND, no rebound or guarding Extremity: 1+ B/L ANKLE edema. no clubbing. neuro: sedated/ lethargic Psych: calm rectal: deferred : normal Chest x-ray 12/06/18 shows Overall, no significant change in appearance of multifocal bilateral pulmonary opacities and small pleural effusions CXR 4. 1. Unchanged airspace opacities of the bilateral, right greater than left perihilar regions and lower lobes. 2. Stable small to moderate right and small left-sided pleural effusions. Echocardiogram was personally reviewed which showed normal LV size ejection fraction of about 45-50% EKG was personally reviewed which shows ventricular paced rhythm CT Chest 11/27: 1. Findings compatible with bilateral bronchiolitis and bronchopneumonia, greater on the right, significantly increased when compared to the prior CT. Mild bilateral pleural effusions, grossly stable. 2. Stable mild cardiomegaly. Coronary arterial and aortic atherosclerotic calcifications. 3. Lines and tubes in place, as above. 4. No evidence of mass or lymphadenopathy Objective Vitals Vital Signs Date Temp Pulse Resp B/P (MAP) Pulse Ox O2 O2 Flow FiO2 Time Delivery Rate 12/13/18 94 12:00 12/13/18 18 111/66 98 Mechanical 11:00 (81) Ventilator 12/13/18 98.3 08:00 12/13/18 30 08:00 Intake and Output 12/12/18 12/12/18 12/13/18 1414:59 22:59 06:59 IntakeIntake Total 395 ml 580 ml 825 ml OutputOutput Total 240 ml 293 ml 336 ml BalanceBalance 155 ml 287 ml 489 ml Results/Medications Result Diagram: 12/13/18 0415 12/13/18 0415 Results 24 hrs Laboratory Tests Test 12/12/18 16:03 12/12/18 17:47 12/12/18 21:40 12/13/18 01:51 Bedside Glucose 102 105 128 169 Test 12/13/18 04:15 12/13/18 05:46 12/13/18 08:34 12/13/18 13:13 White Blood Count 7.6 Red Blood Count 2.73 L Hemoglobin 8.0 L Hematocrit 25.6 L Mean Corpuscular 93.8 Volume Mean Corpuscular 29.3 Hemoglobin Mean Corpuscular 31.3 L Hemoglobin Concent Red Cell Distribution 19.4 H Width Platelet Count 59 #L Mean Platelet Volume 11.3 H Immature Granulocytes 0.300 % Neutrophils % Segmented Neutrophils 95 H % (Manual) Band Neutrophils % 3 (Manual) Lymphocytes % Monocytes % Monocytes % (Manual) 2 Eosinophils % Basophils % Nucleated Red Blood 0.0 Cells % Immature Granulocytes 0.020 # Neutrophils # Neutrophils # 7.2 (Manual) Band Neutrophils # 0.2 Lymphocytes # Monocytes # Monocytes # (Manual) 0.1 L Eosinophils # Basophils # Nucleated Red Blood Cells # Platelet Estimate SIG DECREASED Giant Platelets 1 H Polychromasia 1+ Poikilocytosis 2+ Anisocytosis 1+ Spherocytes 1+ Ovalocytes 1+ Sodium Level 131 L Potassium Level 3.5 Chloride Level 102 Carbon Dioxide Level 26 Anion Gap 3 L Blood Urea Nitrogen 15 Creatinine 0.25 L Est Glomerular Filtrat Rate mL/min Glucose Level 608 #*H Calcium Level 6.2 L Phosphorus Level 2.1 L Magnesium Level 1.8 Bedside Glucose 197 208 230 H Home Meds Reported Medications Acetaminophen* (Tylenol*) 325 Mg Tablet, 650 MG PO Q6H PRN for PAIN AND OR ELEVATED TEMP, TAB 11/30/18 Magnesium Oxide* (Mag-Oxide*) 400 Mg Tablet, 400 MG PO BID, TAB 11/30/18 Levothyroxine Sodium* (Synthroid*) 50 Mcg Tablet, 50 MCG PO BEFORE BREAKFAST, #30 TAB 11/30/18 Potassium Chloride* (Potassium Chloride*) 8 Meq Capsule.er, 10 MEQ PO BID, CAP 11/30/18 Furosemide* (Furosemide*) 40 Mg Tablet, 40 MG PO DAILY, TAB 11/30/18 Cyanocobalamin (B12 Health Booster) 1,000 Mcg/15 Ml Oral.susp, 5000 MCG PO DAILY 11/30/18 Atorvastatin Calcium (Atorvastatin Calcium) 10 Mg Tablet, 10 MG PO QHS, #30 TAB 11/30/18 Aspirin* (Devon Aspirin* Chew) 81 Mg Tab.chew, 81 MG PO BID, TAB.CHEW 11/30/18 Acetazolamide* (Acetazolamide*) 250 Mg Tablet, 250 MG PO DAILY, #60 TAB 11/30/18 Alendronate Sodium* (Fosamax*) 70 Mg Tablet, 70 MG PO Q7D, #4 TAB 11/30/18 Medications Current Medications Ondansetron HCl (Zofran Inj) 4 mg Q6H PRN IV NAUSEA AND/OR VOMITING; Start 11/26/18 at 01:00 Albuterol (Ventolin Hfa) 4 puff Q4H RESP THERAPY INH Last administered on 12/13/18at 13:40; Admin Dose 4 PUFF; Start 11/26/18 at 01:00 Albuterol (Ventolin Hfa) 4 puff Q2H RESP THERAPY PRN INH SHORTNESS OF BREATH Last administered on 11/28/18at 01:53; Admin Dose 4 PUFF; Start 11/26/18 at 01:00 Acetaminophen (Tylenol Liquid) 650 mg Q6H PRN PO PAIN LEVEL 1-3 OR FEVER; Start 11/26/18 at 01:00 Morphine Sulfate (morphine) 2 mg Q4H PRN IV PAIN LEVEL 7-10; Start 11/26/18 at 01:00 Lorazepam (Ativan) 1 mg Q2H PRN IV ANXIETY Last administered on 12/11/18at 18:21; Admin Dose 1 MG; Start 11/26/18 at 01:00 Enoxaparin Sodium (Lovenox) 40 mg DAILY SC Last administered on 12/09/18at 09:30; Admin Dose 40 MG; Start 11/26/18 at 09:00; Status Hold Norepinephrine 250 ml @ 1.875 mls/ hr TITRATE IV Last administered on 12/06/18at 23:16; Admin Dose 9.375 MLS/HR; Start 11/26/18 at 09:00 Insulin Aspart (Novolog Insulin Pen) NOVOLOG *MILD* ALGORI... Q4 SC Last administered on 12/13/18at 13:17; Admin Dose 3 UNIT; Start 11/26/18 at 13:00 Phenylephrine HCl 40 mg/Dextrose 250 ml @ 37.5 mls/hr TITRATE IV Last administered on 11/30/18at 02:35; Admin Dose 3 MLS/HR; Start 11/26/18 at 11:00 Fentanyl 100 ml @ 2.5 mls/hr TITRATE IV Last administered on 12/12/18at 13:45; Admin Dose 5 MLS/HR; Start 11/26/18 at 13:00 IV Flush (NS 10 ml) 10 ml PRN PRN IV IV PROTOCOL; Start 11/26/18 at 15:00 Lansoprazole (Prevacid) 30 mg DAILY@06 GTB Last administered on 12/13/18at 05:59; Admin Dose 30 MG; Start 11/28/18 at 06:00 Alendronate Sodium (Fosamax) 70 mg Mo@AC BREAKFAST PO Last administered on 12/09/18at 05:34; Admin Dose 70 MG; Start 12/02/18 at 07:00 Furosemide (Lasix) 20 mg BID DIURETICS IV Last administered on 12/07/18at 05:39; Admin Dose 20 MG; Start 12/03/18 at 08:00; Status Hold Miscellaneous Information 1 ea NOTE XX ; Start 12/05/18 at 15:00 Glucose (Glutose) 15 gm Q15M PRN PO DECREASED GLUCOSE; Start 12/05/18 at 15:00 Glucose (Glutose) 22.5 gm Q15M PRN PO DECREASED GLUCOSE; Start 12/05/18 at 15:00 Dextrose (D50w Syringe) 25 ml Q15M PRN IV DECREASED GLUCOSE; Start 12/05/18 at 15:00 Dextrose (D50w Syringe) 50 ml Q15M PRN IV DECREASED GLUCOSE; Start 12/05/18 at 15:00 Glucagon (Glucagen) 1 mg Q15M PRN IM DECREASED GLUCOSE; Start 12/05/18 at 15:00 Glucose (Glutose) 15 gm Q15M PRN BUCCAL DECREASED GLUCOSE; Start 12/05/18 at 15:00 Calcitriol (Rocaltrol Liquid (Ped)) 0.25 mcg DAILY GTB Last administered on 12/13/18 08:28; Admin Dose 0.25 MCG; Start 12/07/18 at 09:00 Midodrine (Proamatine) 10 mg TID@09,13,17 GTB Last administered on 12/13/18 14:35; Admin Dose 10 MG; Start 12/07/18 at 09:00 Acetazolamide (Diamox) 500 mg DAILY IV Last administered on 12/09/18 09:27; Admin Dose 500 MG; Start 12/09/18 at 09:00; Status Hold Insulin Glargine (Lantus) 12 units DAILY@1700 SC Last administered on 12/12/18 17:48; Admin Dose 12 UNITS; Start 12/10/18 at 17:00 Multivitamins (Multivitamin) 30 ml DAILY GTB Last administered on 12/13/18 08:28; Admin Dose 30 ML; Start 12/11/18 at 09:00 Ascorbic Acid (Vitamin C) 500 mg DAILY GTB Last administered on 12/13/18 08:28; Admin Dose 500 MG; Start 12/11/18 at 09:00 Folic Acid (Folic Acid) 1 mg DAILY GTB Last administered on 12/13/18 08:28; Admin Dose 1 MG; Start 12/11/18 at 09:00 Zinc Sulfate (Zinc Sulfate) 220 mg DAILY GTB Last administered on 12/13/18 08:29; Admin Dose 220 MG; Start 12/11/18 at 09:00 Methylprednisolone Sodium Succinate (Solu-Medrol) 40 mg Q12 IV Last administered on 12/13/18 08:28; Admin Dose 40 MG; Start 12/12/18 at 21:00 Assessment/Plan Hospital Course (Demo Recall) Acute on chronic hypoxemic/hypercapnic respiratory failure status post trach on the ventilator Shock: Appears to be septic Pneumonia Pleural effusion History of mitral valve replacement currently functioning normally History of most likely heart block status post permanent pacemaker ([employer]) Encephalopathy Cachexia and malnutrition History of rheumatoid arthritis History of ovarian cancer stage IV Thyroid disorder Acute renal failure: stable now Diabetes anemia dysphagia: s/p PEG 12/10/18 Recommendations: Vent support to be continued to be managed as per pulmonary. Antibiotic management as per internal medicine pulmonary and infectious disease consultants BP is stable now off pressors REPLACE Lytes prn . Diabetic management as per internal medicine GI and DVT prophylaxis NAYLA SAUL MD [facility] NAYLA SAUL MD December 13, 2018 14:52
[2018-12-13] MEDS: INSULIN GLARGINE [LANTus] (100 UNITS/ML) SYG SC SCH (18:51)
[2018-12-13] MEDS: FENTAnyl (DRIP) 1000 mcg/100mL 100 ML IV SCH (19:21)
--- NOTE | 2018-12-13 23:34 | CONS ---
Assessment/Plan Assessment/Plan Hospital Course (Demo Recall) Anemia. N-CYTIC WITH INCREASED RDW Continue to monitor hemoglobin and hematocrit levels. PROCEED WITH W-UP STOOL NEG FOR OB Thrombocytopenia. IN PT WITH SEPSIS EXPOSED TO MULTIPLE MEDS INCLUDING HEPARIN Etiology is unclear, possibly due to recent Lovenox use. Plan is to hold Lovenox. CHECK HIT antibody. History of ovarian cancer stage IV, currently in remission. The patient is status post chemotherapy and major debulking surgeries. BECCA D/W DAUGHTER Sepsis secondary to pneumonia, bacteremia and fungal urinary tract infection. Ventilator-dependent respiratory failure. The patient is status post trach. Dysphagia, status post PEG. Continue tube feeding. Volume overload Hypokalemia. Hypernatremia, etiology is secondary to hypoglycemia and hypertonic fluid. Metabolic alkalemia, improving. Left upper extremity swelling. Doppler ultrasounds negative for deep vein thrombosis. Continue to monitor. Continue to elevate arm. Nonoliguric acute kidney injury. History of arrhythmia, status post pacemaker. Diabetes. History of hypothyroidism. History of arthritis. Gastrointestinal and deep vein thrombosis prophylaxis. Consultation Date/Type/Reason Admit Date/Time Nov 25, 2018 at 23:59 Date of Consultation: December 13, 2018 Type of Consult [facility] Reason for Consultation OVARIAN CANCER,ANEMIA Requesting Provider: SHAUN CHRISTENSEN DO Date/Time of Note DATE: 12/13/18 TIME: 23:33 Hx of Present Illness This is an 83-year-old female with a past medical history of coronary artery disease, history of CHF, history of mitral valve replacement, pacemaker placement, history of sleep apnea, history of ovarian cancer stage IV, who initially presented to an outside hospital with respiratory distress and shortness of breath. The patient at the outside facility was diagnosed with pneumonia. The patient at that time was on BiPAP. The patient was eventually stabilized at outside hospital and then transferred to [facility] for continued care as patient had significant decline in her premorbid state. While at [facility], the patient was being seen by pulmonary for hypercapnic hypoxemic respiratory failure. The patient was also on antibiotic therapy for pneumonia. The patient was noted to be stable until last 12 to 14 hours when there was a sudden change in condition and patient became hypotensive, went into further respiratory distress. The patient was then subsequently transferred to intensive care unit at [facility], was intubated, placed on pressor support, IV fluids and continued on broad spectrum antibiotics. Her medical w-up and treatment are in progress I was asked to provide [facility] consult Upon my evaluation of the patient at this time, he is currently intubated, ob tunded. PAST MEDICAL HISTORY: As stated above, st IV OVARIAN CANCER , TREATED 18 YR AGO , CURRENTLY BECCA history of coronary artery disease, history of CHF, history of obstructive sleep apnea. PAST SURGICAL HISTORY: Status post pacemaker placement, status post valve replacement, status post ovarian surgeries. FAMILY HISTORY: Noncontributory. ALLERGIES: NO KNOWN DRUG ALLERGIES. MEDICATIONS: The patient's medications have been reviewed. REVIEW OF SYSTEMS: Unable to do adequate review of systems. The patient is obtunded. Pertinent positives stated in HPI, as obtained by reviewing medical records, speaking to hospital staff, otherwise negative. Past Medical History Home Meds Reported Medications Acetaminophen* (Tylenol*) 325 Mg Tablet, 650 MG PO Q6H PRN for PAIN AND OR ELEVATED TEMP, TAB 11/30/18 Magnesium Oxide* (Mag-Oxide*) 400 Mg Tablet, 400 MG PO BID, TAB 11/30/18 Levothyroxine Sodium* (Synthroid*) 50 Mcg Tablet, 50 MCG PO BEFORE BREAKFAST, #30 TAB 11/30/18 Potassium Chloride* (Potassium Chloride*) 8 Meq Capsule.er, 10 MEQ PO BID, CAP 11/30/18 Furosemide* (Furosemide*) 40 Mg Tablet, 40 MG PO DAILY, TAB 11/30/18 Cyanocobalamin (B12 Health Booster) 1,000 Mcg/15 Ml Oral.susp, 5000 MCG PO DAILY 11/30/18 Atorvastatin Calcium (Atorvastatin Calcium) 10 Mg Tablet, 10 MG PO QHS, #30 TAB 11/30/18 Aspirin* (Devon Aspirin* Chew) 81 Mg Tab.chew, 81 MG PO BID, TAB.CHEW 11/30/18 Acetazolamide* (Acetazolamide*) 250 Mg Tablet, 250 MG PO DAILY, #60 TAB 11/30/18 Alendronate Sodium* (Fosamax*) 70 Mg Tablet, 70 MG PO Q7D, #4 TAB 11/30/18 Medications Current Medications Ondansetron HCl (Zofran Inj) 4 mg Q6H PRN IV NAUSEA AND/OR VOMITING; Start 11/26/18 at 01:00 Albuterol (Ventolin Hfa) 4 puff Q4H RESP THERAPY INH Last administered on 12/13/18 21:33; Admin Dose 4 PUFF; Start 11/26/18 at 01:00 Albuterol (Ventolin Hfa) 4 puff Q2H RESP THERAPY PRN INH SHORTNESS OF BREATH Last administered on 11/28/18 01:53; Admin Dose 4 PUFF; Start 11/26/18 at 01:00 Acetaminophen (Tylenol Liquid) 650 mg Q6H PRN PO PAIN LEVEL 1-3 OR FEVER; Start 11/26/18 at 01:00 Morphine Sulfate (morphine) 2 mg Q4H PRN IV PAIN LEVEL 7-10; Start 11/26/18 at 01:00 Lorazepam (Ativan) 1 mg Q2H PRN IV ANXIETY Last administered on 12/11/18 18:21; Admin Dose 1 MG; Start 11/26/18 at 01:00 Enoxaparin Sodium (Lovenox) 40 mg DAILY SC Last administered on 12/09/18 09:30; Admin Dose 40 MG; Start 11/26/18 at 09:00; Status Hold Norepinephrine 250 ml @ 1.875 mls/ hr TITRATE IV Last administered on 12/06/18 23:16; Admin Dose 9.375 MLS/HR; Start 11/26/18 at 09:00 Insulin Aspart (Novolog Insulin Pen) NOVOLOG *MILD* ALGORI... Q4 SC Last administered on 12/13/18 20:30; Admin Dose 3 UNIT; Start 11/26/18 at 13:00 Phenylephrine HCl 40 mg/Dextrose 250 ml @ 37.5 mls/hr TITRATE IV Last administered on 11/30/18 02:35; Admin Dose 3 MLS/HR; Start 11/26/18 at 11:00 Fentanyl 100 ml @ 2.5 mls/hr TITRATE IV Last administered on 12/13/18 19:21; Admin Dose 5 MLS/HR; Start 11/26/18 at 13:00 IV Flush (NS 10 ml) 10 ml PRN PRN IV IV PROTOCOL; Start 11/26/18 at 15:00 Lansoprazole (Prevacid) 30 mg DAILY@06 GTB Last administered on 12/13/18 05:59; Admin Dose 30 MG; Start 11/28/18 at 06:00 Alendronate Sodium (Fosamax) 70 mg Mo@AC BREAKFAST PO Last administered on 12/09/18 05:34; Admin Dose 70 MG; Start 12/02/18 at 07:00 Furosemide (Lasix) 20 mg BID DIURETICS IV Last administered on 12/07/18at 05:39; Admin Dose 20 MG; Start 12/03/18 at 08:00; Status Hold Miscellaneous Information 1 ea NOTE XX ; Start 12/05/18 at 15:00 Glucose (Glutose) 15 gm Q15M PRN PO DECREASED GLUCOSE; Start 12/05/18 at 15:00 Glucose (Glutose) 22.5 gm Q15M PRN PO DECREASED GLUCOSE; Start 12/05/18 at 15:00 Dextrose (D50w Syringe) 25 ml Q15M PRN IV DECREASED GLUCOSE; Start 12/05/18 at 15:00 Dextrose (D50w Syringe) 50 ml Q15M PRN IV DECREASED GLUCOSE; Start 12/05/18 at 15:00 Glucagon (Glucagen) 1 mg Q15M PRN IM DECREASED GLUCOSE; Start 12/05/18 at 15:00 Glucose (Glutose) 15 gm Q15M PRN BUCCAL DECREASED GLUCOSE; Start 12/05/18 at 15:00 Calcitriol (Rocaltrol Liquid (Ped)) 0.25 mcg DAILY GTB Last administered on 12/13/18 08:28; Admin Dose 0.25 MCG; Start 12/07/18 at 09:00 Midodrine (Proamatine) 10 mg TID@,13,17 GTB Last administered on 12/13/18 18:45; Admin Dose 10 MG; Start 12/07/18 at 09:00 Acetazolamide (Diamox) 500 mg DAILY IV Last administered on 12/09/18 09:27; Admin Dose 500 MG; Start 12/09/18 at 09:00; Status Hold Multivitamins (Multivitamin) 30 ml DAILY GTB Last administered on 12/13/18 08:28; Admin Dose 30 ML; Start 12/11/18 at 09:00 Ascorbic Acid (Vitamin C) 500 mg DAILY GTB Last administered on 12/13/18 08:28; Admin Dose 500 MG; Start 12/11/18 at 09:00 Folic Acid (Folic Acid) 1 mg DAILY GTB Last administered on 5/3/19at 08:28; Admin Dose 1 MG; Start 12/11/18 at 09:00 Zinc Sulfate (Zinc Sulfate) 220 mg DAILY GTB Last administered on 12/13/18at 08:29; Admin Dose 220 MG; Start 12/11/18 at 09:00 Methylprednisolone Sodium Succinate (Solu-Medrol) 40 mg Q12 IV Last administered on 12/13/18at 20:25; Admin Dose 40 MG; Start 12/12/18 at 21:00 Insulin Glargine (Lantus) 16 units DAILY@1700 SC ; Start 12/14/18 at 17:00 Allergies: Coded Allergies: No Known Allergy (Unverified , 11/23/18) Social History Smoking Status: Never smoker Exam/Review of Systems Exam Vitals Vital Signs Date Temp Pulse Resp B/P (MAP) Pulse Ox O2 O2 Flow FiO2 Time Delivery Rate 12/13/18 71 15 100/60 97 Mechanical 23:00 (73) Ventilator 12/13/18 98.0 20:00 12/13/18 30 20:00 Intake and Output 12/12/18 12/12/18 12/13/18 1515:00 23:00 07:00 IntakeIntake Total 440 ml 610 ml 775 ml OutputOutput Total 240 ml 305 ml 294 ml BalanceBalance 200 ml 305 ml 481 ml Exam PHYSICAL EXAMINATION: HEENT: Head is normocephalic. Pupils react to light. NECK: Supple. HEART: Tachycardic. LUNGS: Show diminished breath sounds at the base. ABDOMEN: Soft, nontender to palpation. EXTREMITIES: Negative for clubbing, cyanosis. Trace edema. DERMATOLOGIC: No rashes. MUSCULOSKELETAL: No joint effusions. NEUROLOGIC: The patient is obtunded. Results Result Diagram: 12/13/18 0415 12/13/18 0415 Results 24hrs Laboratory Tests Test 12/13/18 01:51 12/13/18 04:15 12/13/18 05:46 12/13/18 08:34 Bedside Glucose 169 197 208 White Blood Count 7.6 Red Blood Count 2.73 L Hemoglobin 8.0 L Hematocrit 25.6 L Mean Corpuscular 93.8 Volume Mean Corpuscular 29.3 Hemoglobin Mean Corpuscular 31.3 L Hemoglobin Concent Red Cell Distribution 19.4 H Width Platelet Count 59 #L Mean Platelet Volume 11.3 H Immature Granulocytes 0.300 % Neutrophils % Segmented Neutrophils 95 H % (Manual) Band Neutrophils % 3 (Manual) Lymphocytes % Monocytes % Monocytes % (Manual) 2 Eosinophils % Basophils % Nucleated Red Blood 0.0 Cells % Immature Granulocytes 0.020 # Neutrophils # Neutrophils # 7.2 (Manual) Band Neutrophils # 0.2 Lymphocytes # Monocytes # Monocytes # (Manual) 0.1 L Eosinophils # Basophils # Nucleated Red Blood Cells # Platelet Estimate SIG DECREASED Giant Platelets 1 H Polychromasia 1+ Poikilocytosis 2+ Anisocytosis 1+ Spherocytes 1+ Ovalocytes 1+ Sodium Level 131 L Potassium Level 3.5 Chloride Level 102 Carbon Dioxide Level 26 Anion Gap 3 L Blood Urea Nitrogen 15 Creatinine 0.25 L Est Glomerular Filtrat Rate mL/min Glucose Level 608 #*H Calcium Level 6.2 L Phosphorus Level 2.1 L Magnesium Level 1.8 Test 12/13/18 13:13 12/13/18 18:46 12/13/18 20:28 Bedside Glucose 230 H 240 H 255 H Medications Medication Current Medications Ondansetron HCl (Zofran Inj) 4 mg Q6H PRN IV NAUSEA AND/OR VOMITING; Start 11/26/18 at 01:00 Albuterol (Ventolin Hfa) 4 puff Q4H RESP THERAPY INH Last administered on 12/13/18 21:33; Admin Dose 4 PUFF; Start 11/26/18 at 01:00 Albuterol (Ventolin Hfa) 4 puff Q2H RESP THERAPY PRN INH SHORTNESS OF BREATH Last administered on 11/28/18at 01:53; Admin Dose 4 PUFF; Start 11/26/18 at 01:00 Acetaminophen (Tylenol Liquid) 650 mg Q6H PRN PO PAIN LEVEL 1-3 OR FEVER; Start 11/26/18 at 01:00 Morphine Sulfate (morphine) 2 mg Q4H PRN IV PAIN LEVEL 7-10; Start 11/26/18 at 01:00 Lorazepam (Ativan) 1 mg Q2H PRN IV ANXIETY Last administered on 12/11/18 18:21; Admin Dose 1 MG; Start 11/26/18 at 01:00 Enoxaparin Sodium (Lovenox) 40 mg DAILY SC Last administered on 12/09/18at 09:30 ; Admin Dose 40 MG; Start 11/26/18 at 09:00; Status Hold Norepinephrine 250 ml @ 1.875 mls/ hr TITRATE IV Last administered on 12/06/18at 23:16; Admin Dose 9.375 MLS/HR; Start 11/26/18 at 09:00 Insulin Aspart (Novolog Insulin Pen) NOVOLOG *MILD* ALGORI... Q4 SC Last administered on 12/13/18at 20:30; Admin Dose 3 UNIT; Start 11/26/18 at 13:00 Phenylephrine HCl 40 mg/Dextrose 250 ml @ 37.5 mls/hr TITRATE IV Last administered on 11/30/18at 02:35; Admin Dose 3 MLS/HR; Start 11/26/18 at 11:00 Fentanyl 100 ml @ 2.5 mls/hr TITRATE IV Last administered on 12/13/18at 19:21; Admin Dose 5 MLS/HR; Start 11/26/18 at 13:00 IV Flush (NS 10 ml) 10 ml PRN PRN IV IV PROTOCOL; Start 11/26/18 at 15:00 Lansoprazole (Prevacid) 30 mg DAILY@06 GTB Last administered on 12/13/18at 05:59; Admin Dose 30 MG; Start 11/28/18 at 06:00 Alendronate Sodium (Fosamax) 70 mg Mo@AC BREAKFAST PO Last administered on 12/09/18at 05:34; Admin Dose 70 MG; Start 12/02/18 at 07:00 Furosemide (Lasix) 20 mg BID DIURETICS IV Last administered on 12/07/18at 05:39; Admin Dose 20 MG; Start 12/03/18 at 08:00; Status Hold Miscellaneous Information 1 ea NOTE XX ; Start 12/05/18 at 15:00 Glucose (Glutose) 15 gm Q15M PRN PO DECREASED GLUCOSE; Start 12/05/18 at 15:00 Glucose (Glutose) 22.5 gm Q15M PRN PO DECREASED GLUCOSE; Start 12/05/18 at 15:00 Dextrose (D50w Syringe) 25 ml Q15M PRN IV DECREASED GLUCOSE; Start 12/05/18 at 15:00 Dextrose (D50w Syringe) 50 ml Q15M PRN IV DECREASED GLUCOSE; Start 12/05/18 at 15:00 Glucagon (Glucagen) 1 mg Q15M PRN IM DECREASED GLUCOSE; Start 12/05/18 at 15:00 Glucose (Glutose) 15 gm Q15M PRN BUCCAL DECREASED GLUCOSE; Start 12/05/18 at 15:00 Calcitriol (Rocaltrol Liquid (Ped)) 0.25 mcg DAILY GTB Last administered on 12/13/18 08:28; Admin Dose 0.25 MCG; Start 12/07/18 at 09:00 Midodrine (Proamatine) 10 mg TID@,,17 GTB Last administered on 12/13/18 18:45; Admin Dose 10 MG; Start 12/07/18 at 09:00 Acetazolamide (Diamox) 500 mg DAILY IV Last administered on 12/09/18 09:27; Admin Dose 500 MG; Start 12/09/18 at 09:00; Status Hold Multivitamins (Multivitamin) 30 ml DAILY GTB Last administered on 12/13/18 08:28; Admin Dose 30 ML; Start 12/11/18 at 09:00 Ascorbic Acid (Vitamin C) 500 mg DAILY GTB Last administered on 12/13/18 08:28; Admin Dose 500 MG; Start 12/11/18 at 09:00 Folic Acid (Folic Acid) 1 mg DAILY GTB Last administered on 12/13/18 08:28; Admin Dose 1 MG; Start 12/11/18 at 09:00 Zinc Sulfate (Zinc Sulfate) 220 mg DAILY GTB Last administered on 12/13/18 08:29; Admin Dose 220 MG; Start 12/11/18 at 09:00 Methylprednisolone Sodium Succinate (Solu-Medrol) 40 mg Q12 IV Last administered on 12/13/18 20:25; Admin Dose 40 MG; Start 12/12/18 at 21:00 Insulin Glargine (Lantus) 16 units DAILY@1700 SC ; Start 12/14/18 at 17:00 JANNA ROCHE MD December 13, 2018 23:34
[2018-12-14] VITALS (37 sets, daily range): BP systolic 94–140; BP diastolic 58–114; PULSE 72–114; RESP 4–41
[2018-12-14] MEDS: INSULIN ASPART [NOVOLOG] 3 ML PEN SC SCH ×6 (00:56→20:21)
[2018-12-14] MEDS: ALBUTEROL HFA 8 GM INHALER INH SCH ×6 (01:33→19:47)
[2018-12-14] MEDS: LANSOPRAZOLE 30 MG CAP GTB SCH (05:36)
--- NOTE | 2018-12-14 06:52 | PN ---
Date/Time of Note Date/Time of Note DATE: 12/14/18 TIME: 06:50 Assessment/Plan VTE Prophylaxis Risk score (from Nsg)>0 risk: 13 SCD applied (from Nsg): Yes Pharmacological prophylaxis: other Lines/Catheters IV Catheter Type (from Nrsg): PICC Line Central line still needed: Yes Urinary Cath still in place: Yes Reason Cath still needed: urinary retention Assessment/Plan Hospital Course SUBJECTIVE: The patient is stable. The patient had trach placement on 12/12, tolerated well. No other acute events noted. No hemoptysis, hematemesis, or h ematochezia. vent settings were reviewed has good uop d/w Dr Agrawal has hypophosphatemia OBJECTIVE: HEENT: Head is normocephalic. NECK: Supple. HEART: Regular rate. LUNGS: Show diminished breath sounds at the base. ABDOMEN: Soft, nontender to palpation without rebound or guarding. EXTREMITIES: Negative for clubbing, cyanosis, positive edema. DERMATOLOGIC: No rashes. MUSCULOSKELETAL: No joint effusion. NEUROLOGIC: No change in exam. MEDICATIONS: The patient's medications have been reviewed. ASSESSMENT AND PLAN: 1. Sepsis secondary to pneumonia, bacteremia and fungal urinary tract infection. The patient's current on pressor support. Continue antimicrobial and antifungal therapy. Follow up with infectious disease. 2. Ventilator-dependent respiratory failure. The patient is status post trach. The patient's vent settings and ABG was reviewed. Continue to monitor. 3. Dysphagia, status post PEG. Continue tube feeding. 4. Volume overload. Continue intermittent diuretic therapy as needed. 5. Hypokalemia. Continue to monitor and replete. 6. Hypernatremia, etiology is secondary to hypoglycemia and hypertonic fluid. Plan is to discontinue hypertonic fluids, improved glycemic control and monitor sodium levels closely. 7. Metabolic alkalemia, improving. The patient is status post Diamox. 8. Left upper extremity swelling. Doppler ultrasounds negative for deep vein thrombosis. Continue to monitor. Continue to elevate arm. 9. Anemia. Continue to monitor hemoglobin and hematocrit levels. 10. Thrombocytopenia. Etiology is unclear, possibly due to recent Lovenox use. Plan is to hold Lovenox. We will place a hematology consult for evaluation. We will send out for HIT antibody. Monitor closely. 11. Nonoliguric acute kidney injury. Etiology is secondary to hemodynamics. Renal function is improved. Continue to monitor. 12. History of arrhythmia, status post pacemaker. 13. Diabetes. Continue current insulin regimen, adjust as needed. 14. History of ovarian cancer stage IV, status post chemotherapy and debulking surgery. 15. History of hypothyroidism. 16. History of arthritis. 17. Gastrointestinal and deep vein thrombosis prophylaxis. Result Diagram: 12/14/18 0500 12/14/18 0500 Results 24hrs Laboratory Tests Test 12/13/18 08:34 12/13/18 13:13 12/13/18 18:46 12/13/18 20:28 Bedside Glucose 208 230 H 240 H 255 H Test 12/14/18 00:54 12/14/18 04:45 12/14/18 05:00 Bedside Glucose 209 206 White Blood Count 5.7 # Red Blood Count 2.78 L Hemoglobin 8.1 L Hematocrit 25.7 L Mean Corpuscular Volume 92.4 Mean Corpuscular 29.1 Hemoglobin Mean Corpuscular 31.5 L Hemoglobin Concent Red Cell Distribution 19.8 H Width Platelet Count 62 L Mean Platelet Volume 12.8 H Immature Granulocytes % 0.400 Neutrophils % Lymphocytes % Monocytes % Eosinophils % Basophils % Nucleated Red Blood 0.0 Cells % Immature Granulocytes # 0.020 Neutrophils # Lymphocytes # Monocytes # Eosinophils # Basophils # Nucleated Red Blood Cells # Sodium Level 137 Potassium Level 4.4 Chloride Level 103 Carbon Dioxide Level 31 Anion Gap 3 L Blood Urea Nitrogen 19 Creatinine 0.28 L Est Glomerular Filtrat Rate mL/min Glucose Level 169 # Calcium Level 6.9 L Phosphorus Level 1.9 L Magnesium Level 2.1 Exam/Review of Systems Exam Vitals Vital Signs Date Temp Pulse Resp B/P (MAP) Pulse Ox O2 O2 Flow FiO2 Time Delivery Rate 12/14/18 84 14 122/72 Mechanical 06:00 (89) Ventilator 12/14/18 100 30 05:06 12/14/18 97.7 04:00 Intake and Output 12/13/18 12/13/18 12/14/18 1515:00 23:00 07:00 IntakeIntake Total 245 ml 364 ml 245 ml OutputOutput Total 200 ml 285 ml 155 ml BalanceBalance 45 ml 79 ml 90 ml Results Results 24hrs Laboratory Tests Test 12/13/18 08:34 12/13/18 13:13 12/13/18 18:46 12/13/18 20:28 Bedside Glucose 208 230 H 240 H 255 H Test 12/14/18 00:54 12/14/18 04:45 12/14/18 05:00 Bedside Glucose 209 206 White Blood Count 5.7 # Red Blood Count 2.78 L Hemoglobin 8.1 L Hematocrit 25.7 L Mean Corpuscular Volume 92.4 Mean Corpuscular 29.1 Hemoglobin Mean Corpuscular 31.5 L Hemoglobin Concent Red Cell Distribution 19.8 H Width Platelet Count 62 L Mean Platelet Volume 12.8 H Immature Granulocytes % 0.400 Neutrophils % Lymphocytes % Monocytes % Eosinophils % Basophils % Nucleated Red Blood 0.0 Cells % Immature Granulocytes # 0.020 Neutrophils # Lymphocytes # Monocytes # Eosinophils # Basophils # Nucleated Red Blood Cells # Sodium Level 137 Potassium Level 4.4 Chloride Level 103 Carbon Dioxide Level 31 Anion Gap 3 L Blood Urea Nitrogen 19 Creatinine 0.28 L Est Glomerular Filtrat Rate mL/min Glucose Level 169 # Calcium Level 6.9 L Phosphorus Level 1.9 L Magnesium Level 2.1 Medications Medication Current Medications Ondansetron HCl (Zofran Inj) 4 mg Q6H PRN IV NAUSEA AND/OR VOMITING; Start 11/26/18 at 01:00 Albuterol (Ventolin Hfa) 4 puff Q4H RESP THERAPY INH Last administered on 12/14/18at 05:06; Admin Dose 4 PUFF; Start 11/26/18 at 01:00 Albuterol (Ventolin Hfa) 4 puff Q2H RESP THERAPY PRN INH SHORTNESS OF BREATH Last administered on 11/28/18at 01:53; Admin Dose 4 PUFF; Start 11/26/18 at 01:00 Acetaminophen (Tylenol Liquid) 650 mg Q6H PRN PO PAIN LEVEL 1-3 OR FEVER; Start 11/26/18 at 01:00 Morphine Sulfate (morphine) 2 mg Q4H PRN IV PAIN LEVEL 7-10; Start 11/26/18 at 01:00 Lorazepam (Ativan) 1 mg Q2H PRN IV ANXIETY Last administered on 12/11/18at 18:21; Admin Dose 1 MG; Start 11/26/18 at 01:00 Enoxaparin Sodium (Lovenox) 40 mg DAILY SC Last administered on 12/09/18at 09:30; Admin Dose 40 MG; Start 11/26/18 at 09:00; Status Hold Norepinephrine 250 ml @ 1.875 mls/ hr TITRATE IV Last administered on 12/06/18at 23:16; Admin Dose 9.375 MLS/HR; Start 11/26/18 at 09:00 Insulin Aspart (Novolog Insulin Pen) NOVOLOG *MILD* ALGORI... Q4 SC Last administered on 12/14/18at 04:48; Admin Dose 2 UNIT; Start 11/26/18 at 13:00 Phenylephrine HCl 40 mg/Dextrose 250 ml @ 37.5 mls/hr TITRATE IV Last administered on 11/30/18at 02:35; Admin Dose 3 MLS/HR; Start 11/26/18 at 11:00 Fentanyl 100 ml @ 2.5 mls/hr TITRATE IV Last administered on 12/13/18at 19:21; Admin Dose 5 MLS/HR; Start 11/26/18 at 13:00 IV Flush (NS 10 ml) 10 ml PRN PRN IV IV PROTOCOL; Start 11/26/18 at 15:00 Lansoprazole (Prevacid) 30 mg DAILY@06 GTB Last administered on 12/14/18at 05:36; Admin Dose 30 MG; Start 11/28/18 at 06:00 Alendronate Sodium (Fosamax) 70 mg Mo@AC BREAKFAST PO Last administered on 12/09/18at 05:34; Admin Dose 70 MG; Start 12/02/18 at 07:00 Furosemide (Lasix) 20 mg BID DIURETICS IV Last administered on 12/07/18at 05:39; Admin Dose 20 MG; Start 12/03/18 at 08:00; Status Hold Miscellaneous Information 1 ea NOTE XX ; Start 12/05/18 at 15:00 Glucose (Glutose) 15 gm Q15M PRN PO DECREASED GLUCOSE; Start 12/05/18 at 15:00 Glucose (Glutose) 22.5 gm Q15M PRN PO DECREASED GLUCOSE; Start 12/05/18 at 15:00 Dextrose (D50w Syringe) 25 ml Q15M PRN IV DECREASED GLUCOSE; Start 12/05/18 at 15:00 Dextrose (D50w Syringe) 50 ml Q15M PRN IV DECREASED GLUCOSE; Start 12/05/18 at 15:00 Glucagon (Glucagen) 1 mg Q15M PRN IM DECREASED GLUCOSE; Start 12/05/18 at 15:00 Glucose (Glutose) 15 gm Q15M PRN BUCCAL DECREASED GLUCOSE; Start 12/05/18 at 15:00 Calcitriol (Rocaltrol Liquid (Ped)) 0.25 mcg DAILY GTB Last administered on 12/13/18 08:28; Admin Dose 0.25 MCG; Start 12/07/18 at 09:00 Midodrine (Proamatine) 10 mg TID@,,17 GTB Last administered on 12/13/18 18:45; Admin Dose 10 MG; Start 12/07/18 at 09:00 Acetazolamide (Diamox) 500 mg DAILY IV Last administered on 12/09/18 09:27; Admin Dose 500 MG; Start 12/09/18 at 09:00; Status Hold Multivitamins (Multivitamin) 30 ml DAILY GTB Last administered on 12/13/18 08:28; Admin Dose 30 ML; Start 12/11/18 at 09:00 Ascorbic Acid (Vitamin C) 500 mg DAILY GTB Last administered on 12/13/18 08:28; Admin Dose 500 MG; Start 12/11/18 at 09:00 Folic Acid (Folic Acid) 1 mg DAILY GTB Last administered on 12/13/18 08:28; Admin Dose 1 MG; Start 12/11/18 at 09:00 Zinc Sulfate (Zinc Sulfate) 220 mg DAILY GTB Last administered on 12/13/18 08:29; Admin Dose 220 MG; Start 12/11/18 at 09:00 Methylprednisolone Sodium Succinate (Solu-Medrol) 40 mg Q12 IV Last administered on 12/13/18 20:25; Admin Dose 40 MG; Start 12/12/18 at 21:00 Insulin Glargine (Lantus) 16 units DAILY@1700 SC ; Start 12/14/18 at 17:00 KAT SALAZAR DO December 14, 2018 06:52
[2018-12-14] MEDS ORDERED: NEUTRA-PHOS 250 MG PACKET PO ONE (07:00)
[2018-12-14] MEDS: MULTIVITAMINS 30 ML CUP GTB SCH (08:29)
[2018-12-14] MEDS: ZINC SULFATE 220 MG CAP GTB SCH (08:29)
[2018-12-14] MEDS: FOLIC ACID 1 MG TAB GTB SCH (08:29)
[2018-12-14] MEDS: METHYLPREDNISOLONE 40 MG INJ IV SCH ×2 (08:29→20:20)
[2018-12-14] MEDS: CALCITRIOL (1 MCG/ML PO SYG) GTB SCH (08:29)
[2018-12-14] MEDS: MIDODRINE 5 MG TAB GTB SCH ×3 (08:29→17:01)
[2018-12-14] MEDS: ASCORBIC ACID 500 MG TAB GTB SCH (08:29)
[2018-12-14] MEDS: BALSAM PERU/CASTOR OIL 60 GM TUBE TOP SCH ×2 (08:34→20:20)
--- NOTE | 2018-12-14 13:32 | CONS ---
Consult Date/Type/Reason Admit Date/Time Nov 25, 2018 at 23:59 Initial Consult Date 11/26/18 Type of Consultation: Pulm/CCM Requesting Provider: SHAUN CHRISTENSEN DO Date/Time of Note DATE: 12/14/18 TIME: 13:28 Subjective On the vent. Awake though somnolent. Objective Vitals Vital Signs Date Temp Pulse Resp B/P (MAP) Pulse Ox O2 O2 Flow FiO2 Time Delivery Rate 12/14/18 96 12:00 12/14/18 14 123/87 96 Mechanical 11:00 (99) Ventilator 12/14/18 97.8 08:00 12/14/18 30 08:00 Intake and Output 12/13/18 12/13/18 12/14/18 1515:00 23:00 07:00 IntakeIntake Total 245 ml 364 ml 380 ml OutputOutput Total 200 ml 285 ml 175 ml BalanceBalance 45 ml 79 ml 205 ml Exam HEENT: Neck supple; no JVD; no LAD:+ trach CVS: RRR, S1 and S2 CHEST: Coarse BS b/l ABD: Soft, NT, + BS EXT: No c/c: + edema Results/Medications Result Diagram: 12/14/18 0500 12/14/18 0500 Results 24 hrs Laboratory Tests Test 12/13/18 18:46 12/13/18 20:28 12/14/18 00:54 12/14/18 04:45 Bedside Glucose 240 H 255 H 209 206 Test 12/14/18 05:00 12/14/18 08:34 12/14/18 12:41 White Blood Count 5.7 # Red Blood Count 2.78 L Hemoglobin 8.1 L Hematocrit 25.7 L Mean Corpuscular Volume 92.4 Mean Corpuscular 29.1 Hemoglobin Mean Corpuscular 31.5 L Hemoglobin Concent Red Cell Distribution 19.8 H Width Platelet Count 62 L Mean Platelet Volume 12.8 H Immature Granulocytes % 0.400 Neutrophils % Segmented Neutrophils 95 H % (Manual) Band Neutrophils % 2 (Manual) Lymphocytes % Lymphocytes % (Manual) 1 L Monocytes % Monocytes % (Manual) 1 Eosinophils % Basophils % Basophils % (Manual) 1 Nucleated Red Blood 0.0 Cells % Immature Granulocytes # 0.020 Neutrophils # Neutrophils # (Manual) 5.4 Band Neutrophils # 0.1 Lymphocytes (Manual) 0.0 L Lymphocytes # Monocytes # Monocytes # (Manual) 0.0 L Eosinophils # Basophils # Basophils # (Manual) 0.0 Nucleated Red Blood Cells # Toxic Granulation 1+ Platelet Estimate NORMAL Polychromasia 1+ Hypochromasia 1+ Poikilocytosis 2+ Anisocytosis 1+ Microcytosis 1+ Ovalocytes 1+ Sodium Level 137 Potassium Level 4.4 Chloride Level 103 Carbon Dioxide Level 31 Anion Gap 3 L Blood Urea Nitrogen 19 Creatinine 0.28 L Est Glomerular Filtrat Rate mL/min Glucose Level 169 # Calcium Level 6.9 L Phosphorus Level 1.9 L Magnesium Level 2.1 Bedside Glucose 163 153 Home Meds Reported Medications Acetaminophen* (Tylenol*) 325 Mg Tablet, 650 MG PO Q6H PRN for PAIN AND OR ELEVATED TEMP, TAB 11/30/18 Magnesium Oxide* (Mag-Oxide*) 400 Mg Tablet, 400 MG PO BID, TAB 11/30/18 Levothyroxine Sodium* (Synthroid*) 50 Mcg Tablet, 50 MCG PO BEFORE BREAKFAST, #30 TAB 11/30/18 Potassium Chloride* (Potassium Chloride*) 8 Meq Capsule.er, 10 MEQ PO BID, CAP 11/30/18 Furosemide* (Furosemide*) 40 Mg Tablet, 40 MG PO DAILY, TAB 11/30/18 Cyanocobalamin (B12 Health Booster) 1,000 Mcg/15 Ml Oral.susp, 5000 MCG PO DAILY 11/30/18 Atorvastatin Calcium (Atorvastatin Calcium) 10 Mg Tablet, 10 MG PO QHS, #30 TAB 11/30/18 Aspirin* (Devon Aspirin* Chew) 81 Mg Tab.chew, 81 MG PO BID, TAB.CHEW 11/30/18 Acetazolamide* (Acetazolamide*) 250 Mg Tablet, 250 MG PO DAILY, #60 TAB 11/30/18 Alendronate Sodium* (Fosamax*) 70 Mg Tablet, 70 MG PO Q7D, #4 TAB 11/30/18 Medications Current Medications Ondansetron HCl (Zofran Inj) 4 mg Q6H PRN IV NAUSEA AND/OR VOMITING; Start 11/26/18 at 01:00 Albuterol (Ventolin Hfa) 4 puff Q4H RESP THERAPY INH Last administered on 12/14/18at 10:06; Admin Dose 4 PUFF; Start 11/26/18 at 01:00 Albuterol (Ventolin Hfa) 4 puff Q2H RESP THERAPY PRN INH SHORTNESS OF BREATH Last administered on 11/28/18 01:53; Admin Dose 4 PUFF; Start 11/26/18 at 01:00 Acetaminophen (Tylenol Liquid) 650 mg Q6H PRN PO PAIN LEVEL 1-3 OR FEVER; Start 11/26/18 at 01:00 Morphine Sulfate (morphine) 2 mg Q4H PRN IV PAIN LEVEL 7-10; Start 11/26/18 at 01:00 Lorazepam (Ativan) 1 mg Q2H PRN IV ANXIETY Last administered on 12/11/18 18:21; Admin Dose 1 MG; Start 11/26/18 at 01:00 Enoxaparin Sodium (Lovenox) 40 mg DAILY SC Last administered on 12/09/18 09:30; Admin Dose 40 MG; Start 11/26/18 at 09:00; Status Hold Norepinephrine 250 ml @ 1.875 mls/ hr TITRATE IV Last administered on 12/06/18 23:16; Admin Dose 9.375 MLS/HR; Start 11/26/18 at 09:00 Insulin Aspart (Novolog Insulin Pen) NOVOLOG *MILD* ALGORI... Q4 SC Last administered on 12/14/18 12:46; Admin Dose 1 UNIT; Start 11/26/18 at 13:00 Phenylephrine HCl 40 mg/Dextrose 250 ml @ 37.5 mls/hr TITRATE IV Last administered on 11/30/18 02:35; Admin Dose 3 MLS/HR; Start 11/26/18 at 11:00 Fentanyl 100 ml @ 2.5 mls/hr TITRATE IV Last administered on 12/13/18 19:21; Admin Dose 5 MLS/HR; Start 11/26/18 at 13:00 IV Flush (NS 10 ml) 10 ml PRN PRN IV IV PROTOCOL; Start 11/26/18 at 15:00 Lansoprazole (Prevacid) 30 mg DAILY@06 GTB Last administered on 12/14/18 05:36; Admin Dose 30 MG; Start 11/28/18 at 06:00 Alendronate Sodium (Fosamax) 70 mg Mo@AC BREAKFAST PO Last administered on 12/09/18 05:34; Admin Dose 70 MG; Start 12/02/18 at 07:00 Furosemide (Lasix) 20 mg BID DIURETICS IV Last administered on 12/07/18 05:39; Admin Dose 20 MG; Start 12/03/18 at 08:00; Status Hold Miscellaneous Information 1 ea NOTE XX ; Start 12/05/18 at 15:00 Glucose (Glutose) 15 gm Q15M PRN PO DECREASED GLUCOSE; Start 12/05/18 at 15:00 Glucose (Glutose) 22.5 gm Q15M PRN PO DECREASED GLUCOSE; Start 12/05/18 at 15:00 Dextrose (D50w Syringe) 25 ml Q15M PRN IV DECREASED GLUCOSE; Start 12/05/18 at 15:00 Dextrose (D50w Syringe) 50 ml Q15M PRN IV DECREASED GLUCOSE; Start 12/05/18 at 15:00 Glucagon (Glucagen) 1 mg Q15M PRN IM DECREASED GLUCOSE; Start 12/05/18 at 15:00 Glucose (Glutose) 15 gm Q15M PRN BUCCAL DECREASED GLUCOSE; Start 12/05/18 at 15:00 Calcitriol (Rocaltrol Liquid (Ped)) 0.25 mcg DAILY GTB Last administered on 12/14/18 08:29; Admin Dose 0.25 MCG; Start 12/07/18 at 09:00 Midodrine (Proamatine) 10 mg TID@,,17 GTB Last administered on 12/14/18 12:41; Admin Dose 10 MG; Start 12/07/18 at 09:00 Acetazolamide (Diamox) 500 mg DAILY IV Last administered on 12/09/18 09:27; Admin Dose 500 MG; Start 12/09/18 at 09:00; Status Hold Multivitamins (Multivitamin) 30 ml DAILY GTB Last administered on 12/14/18 08:29; Admin Dose 30 ML; Start 12/11/18 at 09:00 Ascorbic Acid (Vitamin C) 500 mg DAILY GTB Last administered on 12/14/18 08:29; Admin Dose 500 MG; Start 12/11/18 at 09:00 Folic Acid (Folic Acid) 1 mg DAILY GTB Last administered on 12/14/18 08:29; Admin Dose 1 MG; Start 12/11/18 at 09:00 Zinc Sulfate (Zinc Sulfate) 220 mg DAILY GTB Last administered on 12/14/18 08:29; Admin Dose 220 MG; Start 12/11/18 at 09:00 Methylprednisolone Sodium Succinate (Solu-Medrol) 40 mg Q12 IV Last administered on 12/14/18at 08:29; Admin Dose 40 MG; Start 12/12/18 at 21:00 Insulin Glargine (Lantus) 16 units DAILY@1700 SC ; Start 12/14/18 at 17:00 Assessment/Plan Assessment/Plan (Daily) IMP: 1. Sepsis 2. Hypercapnic Resp Failure/Failure to wean--s/p trach POD#2 3. s/p NSTEMI 4. Anemia 5. HypoK+ 6. Hypothyroidism 7. Severe cachexia 8. h/o metastatic ovarian cancer 9. Thrombocytopenia RECS: 1. Initiate slow weaning with SIMV 10 PS 14; will gradually lower rate, followed by PS 2. Optimize nutritional status 3. Follow H/H 4. Minimize sedation 5. CPT/suctioning 35 min cc time SHANEL MISHRA MD December 14, 2018 13:32
--- NOTE | 2018-12-14 13:40 | CONS ---
Assessment/Plan Assessment/Plan Hospital Course (Demo Recall) Lethargic, arousable in no distress no fevers overnight. Microbiology: Urine cx + Nicole albicans, sputum culture grew Nicole albicans/E coli===> s/p abx Indwelling: Trach, PEG, Das, right upper extremity PICC line Physical examination: This is a chronically ill-appearing wasted elderly woman who is intubated sedated in no distress. Head atraumatic normocephalic neck is supple chest rise symmetrical breath sounds diminished bases heart: S1-S2 abdomen soft bowel sounds present extremities without cyanosis Assessment: 1. S/p sepsis 2. Acute on chronic hypoxemic respiratory failure, s/p trach 3. Bilateral pneumonia 4. Nicole albicans UTI 5. Coronary artery disease with a history of mitral valve replacement Plan: Remains stable, off abx, continue monitoring DW family Consultation Date/Type/Reason Admit Date/Time Nov 25, 2018 at 23:59 Initial Consult Date 11/26/18 Type of Consult id Requesting Provider: SHAUN CHRISTENSEN DO Date/Time of Note DATE: 12/14/18 TIME: 13:39 Exam/Review of Systems Exam Vitals Vital Signs Date Temp Pulse Resp B/P (MAP) Pulse Ox O2 O2 Flow FiO2 Time Delivery Rate 12/14/18 96 12:00 12/14/18 14 123/87 96 Mechanical 11:00 (99) Ventilator 12/14/18 97.8 08:00 12/14/18 30 08:00 Intake and Output 12/13/18 12/13/18 12/14/18 1515:00 23:00 07:00 IntakeIntake Total 245 ml 364 ml 380 ml OutputOutput Total 200 ml 285 ml 175 ml BalanceBalance 45 ml 79 ml 205 ml Results Result Diagram: 12/14/18 0500 12/14/18 0500 Results 24hrs Laboratory Tests Test 12/13/18 18:46 12/13/18 20:28 12/14/18 00:54 12/14/18 04:45 Bedside Glucose 240 H 255 H 209 206 Test 12/14/18 05:00 12/14/18 08:34 12/14/18 12:41 White Blood Count 5.7 # Red Blood Count 2.78 L Hemoglobin 8.1 L Hematocrit 25.7 L Mean Corpuscular Volume 92.4 Mean Corpuscular 29.1 Hemoglobin Mean Corpuscular 31.5 L Hemoglobin Concent Red Cell Distribution 19.8 H Width Platelet Count 62 L Mean Platelet Volume 12.8 H Immature Granulocytes % 0.400 Neutrophils % Segmented Neutrophils 95 H % (Manual) Band Neutrophils % 2 (Manual) Lymphocytes % Lymphocytes % (Manual) 1 L Monocytes % Monocytes % (Manual) 1 Eosinophils % Basophils % Basophils % (Manual) 1 Nucleated Red Blood 0.0 Cells % Immature Granulocytes # 0.020 Neutrophils # Neutrophils # (Manual) 5.4 Band Neutrophils # 0.1 Lymphocytes (Manual) 0.0 L Lymphocytes # Monocytes # Monocytes # (Manual) 0.0 L Eosinophils # Basophils # Basophils # (Manual) 0.0 Nucleated Red Blood Cells # Toxic Granulation 1+ Platelet Estimate NORMAL Polychromasia 1+ Hypochromasia 1+ Poikilocytosis 2+ Anisocytosis 1+ Microcytosis 1+ Ovalocytes 1+ Sodium Level 137 Potassium Level 4.4 Chloride Level 103 Carbon Dioxide Level 31 Anion Gap 3 L Blood Urea Nitrogen 19 Creatinine 0.28 L Est Glomerular Filtrat Rate mL/min Glucose Level 169 # Calcium Level 6.9 L Phosphorus Level 1.9 L Magnesium Level 2.1 Bedside Glucose 163 153 Medications Medication Current Medications Ondansetron HCl (Zofran Inj) 4 mg Q6H PRN IV NAUSEA AND/OR VOMITING; Start 11/26/18 at 01:00 Albuterol (Ventolin Hfa) 4 puff Q4H RESP THERAPY INH Last administered on 12/14/18at 10:06; Admin Dose 4 PUFF; Start 11/26/18 at 01:00 Albuterol (Ventolin Hfa) 4 puff Q2H RESP THERAPY PRN INH SHORTNESS OF BREATH Last administered on 11/28/18at 01:53; Admin Dose 4 PUFF; Start 11/26/18 at 01:00 Acetaminophen (Tylenol Liquid) 650 mg Q6H PRN PO PAIN LEVEL 1-3 OR FEVER; Start 11/26/18 at 01:00 Morphine Sulfate (morphine) 2 mg Q4H PRN IV PAIN LEVEL 7-10; Start 11/26/18 at 01:00 Lorazepam (Ativan) 1 mg Q2H PRN IV ANXIETY Last administered on 12/11/18at 18:21; Admin Dose 1 MG; Start 11/26/18 at 01:00 Enoxaparin Sodium (Lovenox) 40 mg DAILY SC Last administered on 12/09/18 09:30; Admin Dose 40 MG; Start 11/26/18 at 09:00; Status Hold Norepinephrine 250 ml @ 1.875 mls/ hr TITRATE IV Last administered on 12/06/18 23:16; Admin Dose 9.375 MLS/HR; Start 11/26/18 at 09:00 Insulin Aspart (Novolog Insulin Pen) NOVOLOG *MILD* ALGORI... Q4 SC Last administered on 12/14/18at 12:46; Admin Dose 1 UNIT; Start 11/26/18 at 13:00 Phenylephrine HCl 40 mg/Dextrose 250 ml @ 37.5 mls/hr TITRATE IV Last administered on 11/30/18 02:35; Admin Dose 3 MLS/HR; Start 11/26/18 at 11:00 Fentanyl 100 ml @ 2.5 mls/hr TITRATE IV Last administered on 12/13/18 19:21; Admin Dose 5 MLS/HR; Start 11/26/18 at 13:00 IV Flush (NS 10 ml) 10 ml PRN PRN IV IV PROTOCOL; Start 11/26/18 at 15:00 Lansoprazole (Prevacid) 30 mg DAILY@06 GTB Last administered on 12/14/18 05:36; Admin Dose 30 MG; Start 11/28/18 at 06:00 Alendronate Sodium (Fosamax) 70 mg Mo@AC BREAKFAST PO Last administered on 12/09/18 05:34; Admin Dose 70 MG; Start 12/02/18 at 07:00 Furosemide (Lasix) 20 mg BID DIURETICS IV Last administered on 12/07/18 05:39; Admin Dose 20 MG; Start 12/03/18 at 08:00; Status Hold Miscellaneous Information 1 ea NOTE XX ; Start 12/05/18 at 15:00 Glucose (Glutose) 15 gm Q15M PRN PO DECREASED GLUCOSE; Start 12/05/18 at 15:00 Glucose (Glutose) 22.5 gm Q15M PRN PO DECREASED GLUCOSE; Start 12/05/18 at 15:00 Dextrose (D50w Syringe) 25 ml Q15M PRN IV DECREASED GLUCOSE; Start 12/05/18 at 15:00 Dextrose (D50w Syringe) 50 ml Q15M PRN IV DECREASED GLUCOSE; Start 12/05/18 at 15:00 Glucagon (Glucagen) 1 mg Q15M PRN IM DECREASED GLUCOSE; Start 12/05/18 at 15:00 Glucose (Glutose) 15 gm Q15M PRN BUCCAL DECREASED GLUCOSE; Start 12/05/18 at 15:00 Calcitriol (Rocaltrol Liquid (Ped)) 0.25 mcg DAILY GTB Last administered on 12/14/18 08:29; Admin Dose 0.25 MCG; Start 12/07/18 at 09:00 Midodrine (Proamatine) 10 mg TID@,, GTB Last administered on 12/14/18 12:41; Admin Dose 10 MG; Start 12/07/18 at 09:00 Acetazolamide (Diamox) 500 mg DAILY IV Last administered on 12/09/18 09:27; Admin Dose 500 MG; Start 12/09/18 at 09:00; Status Hold Multivitamins (Multivitamin) 30 ml DAILY GTB Last administered on 12/14/18 08:29; Admin Dose 30 ML; Start 12/11/18 at 09:00 Ascorbic Acid (Vitamin C) 500 mg DAILY GTB Last administered on 12/14/18 08:29; Admin Dose 500 MG; Start 12/11/18 at 09:00 Folic Acid (Folic Acid) 1 mg DAILY GTB Last administered on 12/14/18 08:29; A dmin Dose 1 MG; Start 12/11/18 at 09:00 Zinc Sulfate (Zinc Sulfate) 220 mg DAILY GTB Last administered on 12/14/18 08:29; Admin Dose 220 MG; Start 12/11/18 at 09:00 Methylprednisolone Sodium Succinate (Solu-Medrol) 40 mg Q12 IV Last administered on 12/14/18 08:29; Admin Dose 40 MG; Start 12/12/18 at 21:00 Insulin Glargine (Lantus) 16 units DAILY@1700 SC ; Start 12/14/18 at 17:00 OJDY BOYD NP December 14, 2018 13:40
--- NOTE | 2018-12-14 14:02 | PN ---
Date/Time of Note Date/Time of Note DATE: 12/14/18 TIME: 14:01 Assessment/Plan Lines/Catheters IV Catheter Type (from Nrsg): PICC Line Das in Place (from Nrsg): Yes Assessment/Plan Assessment/Plan Resp Failure SP tracheostomy trach site clean will continue trach care vent support Subjective 24 Hr Interval Summary Constitutional: no complaints, improved, ambulates, BM, flatus, urine output Pain Control: well controlled Exam/Review of Systems Vital Signs Vitals Vital Signs Date Temp Pulse Resp B/P (MAP) Pulse Ox O2 O2 Flow FiO2 Time Delivery Rate 12/14/18 96 12:00 12/14/18 14 123/87 96 Mechanical 11:00 (99) Ventilator 12/14/18 97.8 08:00 12/14/18 30 08:00 Intake and Output 12/13/18 12/13/18 12/14/18 1515:00 23:00 07:00 IntakeIntake Total 245 ml 364 ml 380 ml OutputOutput Total 200 ml 285 ml 175 ml BalanceBalance 45 ml 79 ml 205 ml Exam Head: normocephalic, atraumatic Eyes: nl conjunctiva, EOMI, nl lids, nl sclera ENMT: No nl external ears & nose, No nl lips & teeth, No nl nasal mucosa & septum, No mucosa pink and moist, No intubated, No tympanic membranes, No other Neck: supple, non-tender Respiratory: clear to auscultation, normal air movement Cardiovascular: regular rate and rhythm, nl pulses Gastrointestinal: soft, nl liver, spleen, non-tender Musculoskeletal: nl extremities to inspection, nl gait and stance Results Result Diagram: 12/14/18 0500 12/14/18 0500 KIMBERLEY LARIOS MD December 14, 2018 14:02
--- NOTE | 2018-12-14 14:08 | CONS ---
Assessment/Plan Assessment/Plan Hospital Course (Demo Recall) Anemia. N-CYTIC WITH INCREASED RDW Continue to monitor hemoglobin and hematocrit levels. COMPLETE W-UP STOOL NEG FOR OB Thrombocytopenia. IN PT WITH SEPSIS EXPOSED TO MULTIPLE MEDS INCLUDING HEPARIN Etiology is unclear, possibly due to recent Lovenox use. Lovenox. - ON HOLD HIT antibody. - P CHECK DIC PROFILE History of ovarian cancer stage IV, currently in remission. The patient is status post chemotherapy and major debulking surgeries. BECCA D/W DAUGHTER Sepsis secondary to pneumonia, bacteremia and fungal urinary tract infection. Ventilator-dependent respiratory failure. The patient is status post trach. Dysphagia, status post PEG. Continue tube feeding. Volume overload Hypokalemia. Hypernatremia, etiology is secondary to hypoglycemia and hypertonic fluid. Metabolic alkalemia, improving. Left upper extremity swelling. Doppler ultrasounds negative for deep vein thrombosis. Continue to monitor. Continue to elevate arm. Nonoliguric acute kidney injury. History of arrhythmia, status post pacemaker. Diabetes. History of hypothyroidism. History of arthritis. Gastrointestinal and deep vein thrombosis prophylaxis. Consultation Date/Type/Reason Admit Date/Time Nov 25, 2018 at 23:59 Initial Consult Date 12/13/18 Type of Consult [facility] Requesting Provider: SHAUN CHRISTENSEN DO Date/Time of Note DATE: 12/14/18 TIME: 14:07 24 HR Interval Summary Free Text/Dictation ALL NOTED Exam/Review of Systems Exam Vitals Vital Signs Date Temp Pulse Resp B/P (MAP) Pulse Ox O2 O2 Flow FiO2 Time Delivery Rate 12/14/18 96 12:00 12/14/18 14 123/87 96 Mechanical 11:00 (99) Ventilator 12/14/18 97.8 08:00 12/14/18 30 08:00 Intake and Output 12/13/18 12/13/18 12/14/18 1515:00 23:00 07:00 IntakeIntake Total 245 ml 364 ml 380 ml OutputOutput Total 200 ml 285 ml 175 ml BalanceBalance 45 ml 79 ml 205 ml Exam HEENT: Head is normocephalic. Pupils react to light. + VENT. + TRACH NECK: Supple. HEART: Tachycardic. LUNGS: Show diminished breath sounds at the base. ABDOMEN: Soft, nontender to palpation. EXTREMITIES: Negative for clubbing, cyanosis. Trace edema. DERMATOLOGIC: No rashes. MUSCULOSKELETAL: No joint effusions. NEUROLOGIC: The patient is obtunded. Results Result Diagram: 12/14/18 0500 12/14/18 0500 Results 24hrs Laboratory Tests Test 12/13/18 18:46 12/13/18 20:28 12/14/18 00:54 12/14/18 04:45 Bedside Glucose 240 H 255 H 209 206 Test 12/14/18 05:00 12/14/18 08:34 12/14/18 12:41 White Blood Count 5.7 # Red Blood Count 2.78 L Hemoglobin 8.1 L Hematocrit 25.7 L Mean Corpuscular Volume 92.4 Mean Corpuscular 29.1 Hemoglobin Mean Corpuscular 31.5 L Hemoglobin Concent Red Cell Distribution 19.8 H Width Platelet Count 62 L Mean Platelet Volume 12.8 H Immature Granulocytes % 0.400 Neutrophils % Segmented Neutrophils 95 H % (Manual) Band Neutrophils % 2 (Manual) Lymphocytes % Lymphocytes % (Manual) 1 L Monocytes % Monocytes % (Manual) 1 Eosinophils % Basophils % Basophils % (Manual) 1 Nucleated Red Blood 0.0 Cells % Immature Granulocytes # 0.020 Neutrophils # Neutrophils # (Manual) 5.4 Band Neutrophils # 0.1 Lymphocytes (Manual) 0.0 L Lymphocytes # Monocytes # Monocytes # (Manual) 0.0 L Eosinophils # Basophils # Basophils # (Manual) 0.0 Nucleated Red Blood Cells # Toxic Granulation 1+ Platelet Estimate NORMAL Polychromasia 1+ Hypochromasia 1+ Poikilocytosis 2+ Anisocytosis 1+ Microcytosis 1+ Ovalocytes 1+ Sodium Level 137 Potassium Level 4.4 Chloride Level 103 Carbon Dioxide Level 31 Anion Gap 3 L Blood Urea Nitrogen 19 Creatinine 0.28 L Est Glomerular Filtrat Rate mL/min Glucose Level 169 # Calcium Level 6.9 L Phosphorus Level 1.9 L Magnesium Level 2.1 Bedside Glucose 163 153 Medications Medication Current Medications Ondansetron HCl (Zofran Inj) 4 mg Q6H PRN IV NAUSEA AND/OR VOMITING; Start 11/26/18 at 01:00 Albuterol (Ventolin Hfa) 4 puff Q4H RESP THERAPY INH Last administered on 12/14/18at 13:50; Admin Dose 4 PUFF; Start 11/26/18 at 01:00 Albuterol (Ventolin Hfa) 4 puff Q2H RESP THERAPY PRN INH SHORTNESS OF BREATH Last administered on 11/28/18 01:53; Admin Dose 4 PUFF; Start 11/26/18 at 01:00 Acetaminophen (Tylenol Liquid) 650 mg Q6H PRN PO PAIN LEVEL 1-3 OR FEVER; Start 11/26/18 at 01:00 Morphine Sulfate (morphine) 2 mg Q4H PRN IV PAIN LEVEL 7-10; Start 11/26/18 at 01:00 Lorazepam (Ativan) 1 mg Q2H PRN IV ANXIETY Last administered on 12/11/18 18:21; Admin Dose 1 MG; Start 11/26/18 at 01:00 Enoxaparin Sodium (Lovenox) 40 mg DAILY SC Last administered on 12/09/18 09:30; Admin Dose 40 MG; Start 11/26/18 at 09:00; Status Hold Norepinephrine 250 ml @ 1.875 mls/ hr TITRATE IV Last administered on 12/06/18 23:16; Admin Dose 9.375 MLS/HR; Start 11/26/18 at 09:00 Insulin Aspart (Novolog Insulin Pen) NOVOLOG *MILD* ALGORI... Q4 SC Last administered on 12/14/18 12:46; Admin Dose 1 UNIT; Start 11/26/18 at 13:00 Phenylephrine HCl 40 mg/Dextrose 250 ml @ 37.5 mls/hr TITRATE IV Last administered on 11/30/18 02:35; Admin Dose 3 MLS/HR; Start 11/26/18 at 11:00 Fentanyl 100 ml @ 2.5 mls/hr TITRATE IV Last administered on 12/13/18 19:21; Admin Dose 5 MLS/HR; Start 11/26/18 at 13:00 IV Flush (NS 10 ml) 10 ml PRN PRN IV IV PROTOCOL; Start 11/26/18 at 15:00 Lansoprazole (Prevacid) 30 mg DAILY@06 GTB Last administered on 12/14/18 05:36; Admin Dose 30 MG; Start 11/28/18 at 06:00 Alendronate Sodium (Fosamax) 70 mg Mo@AC BREAKFAST PO Last administered on 12/09/18 05:34; Admin Dose 70 MG; Start 12/02/18 at 07:00 Furosemide (Lasix) 20 mg BID DIURETICS IV Last administered on 12/07/18at 05:39; Admin Dose 20 MG; Start 12/03/18 at 08:00; Status Hold Miscellaneous Information 1 ea NOTE XX ; Start 12/05/18 at 15:00 Glucose (Glutose) 15 gm Q15M PRN PO DECREASED GLUCOSE; Start 12/05/18 at 15:00 Glucose (Glutose) 22.5 gm Q15M PRN PO DECREASED GLUCOSE; Start 12/05/18 at 15:00 Dextrose (D50w Syringe) 25 ml Q15M PRN IV DECREASED GLUCOSE; Start 12/05/18 at 15:00 Dextrose (D50w Syringe) 50 ml Q15M PRN IV DECREASED GLUCOSE; Start 12/05/18 at 15:00 Glucagon (Glucagen) 1 mg Q15M PRN IM DECREASED GLUCOSE; Start 12/05/18 at 15:00 Glucose (Glutose) 15 gm Q15M PRN BUCCAL DECREASED GLUCOSE; Start 12/05/18 at 15:00 Calcitriol (Rocaltrol Liquid (Ped)) 0.25 mcg DAILY GTB Last administered on 12/14/18 08:29; Admin Dose 0.25 MCG; Start 12/07/18 at 09:00 Midodrine (Proamatine) 10 mg TID@,,17 GTB Last administered on 12/14/18 12:41; Admin Dose 10 MG; Start 12/07/18 at 09:00 Acetazolamide (Diamox) 500 mg DAILY IV Last administered on 12/09/18 09:27; Admin Dose 500 MG; Start 12/09/18 at 09:00; Status Hold Multivitamins (Multivitamin) 30 ml DAILY GTB Last administered on 12/14/18 08:29; Admin Dose 30 ML; Start 12/11/18 at 09:00 Ascorbic Acid (Vitamin C) 500 mg DAILY GTB Last administered on 12/14/18 08:29; Admin Dose 500 MG; Start 12/11/18 at 09:00 Folic Acid (Folic Acid) 1 mg DAILY GTB Last administered on 12/14/18 08:29; Admin Dose 1 MG; Start 12/11/18 at 09:00 Zinc Sulfate (Zinc Sulfate) 220 mg DAILY GTB Last administered on 12/14/18 08:29; Admin Dose 220 MG; Start 12/11/18 at 09:00 Methylprednisolone Sodium Succinate (Solu-Medrol) 40 mg Q12 IV Last administered on 12/14/18at 08:29; Admin Dose 40 MG; Start 12/12/18 at 21:00 Insulin Glargine (Lantus) 16 units DAILY@1700 SC ; Start 12/14/18 at 17:00 JANNA ROCHE MD December 14, 2018 14:08
--- NOTE | 2018-12-14 15:36 | CONS ---
Assessment/Plan Assessment/Plan Assessment/Plan (Daily) Assessment/Plan (Daily) Hospital Course (Demo Recall) 83 yo female with Vent dependent respiratory failure needs a PEG 1. Dysphasia -PEG placement done yesterday on 12/10/2018 2. Pneumonia -resp cx positive for E. Coli and Nicole albicans 3. UTI -Nicole albicans 4. Vent dependent respiratory failure -plan for trach 5. Anemia due to chronic disease -negative FOB No evidence of active bleeding 6. Diabetes mellitus 7. H/o ovarian cancer with total hysterectomy 20 years ago 8. Pacemaker status 9. H/O mitral valve replacement 10 status post G-tube placement 11. Status post tracheostomy 12. Gastroparesis Plan: Replace K, check K after replacement Hold anti coagulants Patient is tolerating feeding continue present care Monitor H&H and transfuse on as-needed basis Continue present care Case was discussed with the son Patient will be started on Reglan Consultation Date/Type/Reason Admit Date/Time Nov 25, 2018 at 23:59 Initial Consult Date 12/09/18 Requesting Provider: SHAUN CHRISTENSEN DO Date/Time of Note DATE: 12/14/18 TIME: 15:35 24 HR Interval Summary Free Text/Dictation Residual was high 75 cc Constitutional: improved Exam/Review of Systems Exam Vitals Vital Signs Date Temp Pulse Resp B/P (MAP) Pulse Ox O2 O2 Flow FiO2 Time Delivery Rate 12/14/18 92 41 115/102 99 Mechanical 14:00 (106) Ventilator 12/14/18 98.4 12:00 12/14/18 30 08:00 Intake and Output 12/13/18 12/13/18 12/14/18 1414:59 22:59 06:59 IntakeIntake Total 250 ml 359 ml 280 ml OutputOutput Total 200 ml 230 ml 210 ml BalanceBalance 50 ml 129 ml 70 ml Constitutional: alert, oriented, well developed Psych: no complaints, nl mood/affect Head: normocephalic, atraumatic Eyes: nl conjunctiva, EOMI, nl lids, nl sclera, PERRL ENMT: nl external ears & nose, nl lips & teeth, nl nasal mucosa & septum Neck: supple, non-tender Respiratory: clear to auscultation, normal air movement Cardiovascular: regular rate and rhythm, nl pulses Gastrointestinal: soft, nl liver, spleen, non-tender Musculoskeletal: nl extremities to inspection, nl gait and stance Extremities: normal pulses Neurological: RECOVERY COLLECTOR II-XII intact, nl mental status, nl speech, nl strength Skin: nl turgor; No rash or lesions Lymph: nl lymph nodes Results Result Diagram: 12/14/18 0500 12/14/18 0500 Results 24hrs Laboratory Tests Test 12/13/18 18:46 12/13/18 20:28 12/14/18 00:54 12/14/18 04:45 Bedside Glucose 240 H 255 H 209 206 Test 12/14/18 05:00 12/14/18 08:34 12/14/18 12:41 White Blood Count 5.7 # Red Blood Count 2.78 L Hemoglobin 8.1 L Hematocrit 25.7 L Mean Corpuscular Volume 92.4 Mean Corpuscular 29.1 Hemoglobin Mean Corpuscular 31.5 L Hemoglobin Concent Red Cell Distribution 19.8 H Width Platelet Count 62 L Mean Platelet Volume 12.8 H Immature Granulocytes % 0.400 Neutrophils % Segmented Neutrophils 95 H % (Manual) Band Neutrophils % 2 (Manual) Lymphocytes % Lymphocytes % (Manual) 1 L Monocytes % Monocytes % (Manual) 1 Eosinophils % Basophils % Basophils % (Manual) 1 Nucleated Red Blood 0.0 Cells % Immature Granulocytes # 0.020 Neutrophils # Neutrophils # (Manual) 5.4 Band Neutrophils # 0.1 Lymphocytes (Manual) 0.0 L Lymphocytes # Monocytes # Monocytes # (Manual) 0.0 L Eosinophils # Basophils # Basophils # (Manual) 0.0 Nucleated Red Blood Cells # Toxic Granulation 1+ Platelet Estimate NORMAL Polychromasia 1+ Hypochromasia 1+ Poikilocytosis 2+ Anisocytosis 1+ Microcytosis 1+ Ovalocytes 1+ Sodium Level 137 Potassium Level 4.4 Chloride Level 103 Carbon Dioxide Level 31 Anion Gap 3 L Blood Urea Nitrogen 19 Creatinine 0.28 L Est Glomerular Filtrat Rate mL/min Glucose Level 169 # Calcium Level 6.9 L Phosphorus Level 1.9 L Magnesium Level 2.1 Bedside Glucose 163 153 Medications Medication Current Medications Ondansetron HCl (Zofran Inj) 4 mg Q6H PRN IV NAUSEA AND/OR VOMITING; Start 11/26/18 at 01:00 Albuterol (Ventolin Hfa) 4 puff Q4H RESP THERAPY INH Last administered on 12/14/18at 13:50; Admin Dose 4 PUFF; Start 11/26/18 at 01:00 Albuterol (Ventolin Hfa) 4 puff Q2H RESP THERAPY PRN INH SHORTNESS OF BREATH Last administered on 11/28/18 01:53; Admin Dose 4 PUFF; Start 11/26/18 at 01:00 Acetaminophen (Tylenol Liquid) 650 mg Q6H PRN PO PAIN LEVEL 1-3 OR FEVER; Start 11/26/18 at 01:00 Morphine Sulfate (morphine) 2 mg Q4H PRN IV PAIN LEVEL 7-10; Start 11/26/18 at 01:00 Lorazepam (Ativan) 1 mg Q2H PRN IV ANXIETY Last administered on 12/11/18 18:21; Admin Dose 1 MG; Start 11/26/18 at 01:00 Enoxaparin Sodium (Lovenox) 40 mg DAILY SC Last administered on 12/09/18 09:30; Admin Dose 40 MG; Start 11/26/18 at 09:00; Status Hold Norepinephrine 250 ml @ 1.875 mls/ hr TITRATE IV Last administered on 12/06/18 23:16; Admin Dose 9.375 MLS/HR; Start 11/26/18 at 09:00 Insulin Aspart (Novolog Insulin Pen) NOVOLOG *MILD* ALGORI... Q4 SC Last administered on 12/14/18 12:46; Admin Dose 1 UNIT; Start 11/26/18 at 13:00 Phenylephrine HCl 40 mg/Dextrose 250 ml @ 37.5 mls/hr TITRATE IV Last administered on 11/30/18 02:35; Admin Dose 3 MLS/HR; Start 11/26/18 at 11:00 Fentanyl 100 ml @ 2.5 mls/hr TITRATE IV Last administered on 12/13/18 19:21; Admin Dose 5 MLS/HR; Start 11/26/18 at 13:00 IV Flush (NS 10 ml) 10 ml PRN PRN IV IV PROTOCOL; Start 11/26/18 at 15:00 Lansoprazole (Prevacid) 30 mg DAILY@06 GTB Last administered on 12/14/18 05:36; Admin Dose 30 MG; Start 11/28/18 at 06:00 Alendronate Sodium (Fosamax) 70 mg Mo@AC BREAKFAST PO Last administered on 12/09/18 05:34; Admin Dose 70 MG; Start 12/02/18 at 07:00 Furosemide (Lasix) 20 mg BID DIURETICS IV Last administered on 12/07/18 05:39; Admin Dose 20 MG; Start 12/03/18 at 08:00; Status Hold Miscellaneous Information 1 ea NOTE XX ; Start 12/05/18 at 15:00 Glucose (Glutose) 15 gm Q15M PRN PO DECREASED GLUCOSE; Start 12/05/18 at 15:00 Glucose (Glutose) 22.5 gm Q15M PRN PO DECREASED GLUCOSE; Start 12/05/18 at 15:00 Dextrose (D50w Syringe) 25 ml Q15M PRN IV DECREASED GLUCOSE; Start 12/05/18 at 15:00 Dextrose (D50w Syringe) 50 ml Q15M PRN IV DECREASED GLUCOSE; Start 12/05/18 at 15:00 Glucagon (Glucagen) 1 mg Q15M PRN IM DECREASED GLUCOSE; Start 12/05/18 at 15:00 Glucose (Glutose) 15 gm Q15M PRN BUCCAL DECREASED GLUCOSE; Start 12/05/18 at 15:00 Calcitriol (Rocaltrol Liquid (Ped)) 0.25 mcg DAILY GTB Last administered on 12/14/18 08:29; Admin Dose 0.25 MCG; Start 12/07/18 at 09:00 Midodrine (Proamatine) 10 mg TID@,,17 GTB Last administered on 12/14/18 12:41; Admin Dose 10 MG; Start 12/07/18 at 09:00 Acetazolamide (Diamox) 500 mg DAILY IV Last administered on 12/09/18 09:27; Admin Dose 500 MG; Start 12/09/18 at 09:00; Status Hold Multivitamins (Multivitamin) 30 ml DAILY GTB Last administered on 12/14/18 08:29; Admin Dose 30 ML; Start 12/11/18 at 09:00 Ascorbic Acid (Vitamin C) 500 mg DAILY GTB Last administered on 12/14/18 08:29; Admin Dose 500 MG; Start 12/11/18 at 09:00 Folic Acid (Folic Acid) 1 mg DAILY GTB Last administered on 12/14/18 08:29; Admin Dose 1 MG; Start 12/11/18 at 09:00 Zinc Sulfate (Zinc Sulfate) 220 mg DAILY GTB Last administered on 12/14/18at 08:29; Admin Dose 220 MG; Start 12/11/18 at 09:00 Methylprednisolone Sodium Succinate (Solu-Medrol) 40 mg Q12 IV Last administered on 12/14/18at 08:29; Admin Dose 40 MG; Start 12/12/18 at 21:00 Insulin Glargine (Lantus) 16 units DAILY@1700 SC ; Start 12/14/18 at 17:00 GOMEZ BARBA MD December 14, 2018 15:36
[2018-12-14] MEDS: INSULIN GLARGINE [LANTus] (100 UNITS/ML) SYG SC SCH (17:01)
[2018-12-14] MEDS: METOCLOPRAMIDE 10 MG INJ IV SCH (20:20)
[2018-12-14] MEDS: FENTAnyl (DRIP) 1000 mcg/100mL 100 ML IV SCH (21:47)
[2018-12-15] VITALS (35 sets, daily range): BP systolic 81–125; BP diastolic 49–98; PULSE 73–115; RESP 14–28
[2018-12-15] MEDS: ALBUTEROL HFA 8 GM INHALER INH SCH ×6 (00:04→21:18)
[2018-12-15] MEDS: INSULIN ASPART [NOVOLOG] 3 ML PEN SC SCH ×6 (00:44→21:00)
[2018-12-15] MEDS: LANSOPRAZOLE 30 MG CAP GTB SCH (04:57)
--- NOTE | 2018-12-15 07:22 | PN ---
Date/Time of Note Date/Time of Note DATE: 12/15/18 TIME: 07:21 Assessment/Plan VTE Prophylaxis Risk score (from Nsg)>0 risk: 12 SCD applied (from Nsg): Yes Pharmacological prophylaxis: other Lines/Catheters IV Catheter Type (from Nrsg): PICC Line Central line still needed: Yes Urinary Cath still in place: Yes Reason Cath still needed: urinary retention Assessment/Plan Hospital Course SUBJECTIVE: The patient is stable. The patient had trach placement on 12/12, tolerated well. No other acute events noted. No hemoptysis, hematemesis, or h ematochezia. vent settings were reviewed has good uop d/w Dr Agrawal remains anemic OBJECTIVE: HEENT: Head is normocephalic. NECK: Supple. HEART: Regular rate. LUNGS: Show diminished breath sounds at the base. ABDOMEN: Soft, nontender to palpation without rebound or guarding. EXTREMITIES: Negative for clubbing, cyanosis, positive edema. DERMATOLOGIC: No rashes. MUSCULOSKELETAL: No joint effusion. NEUROLOGIC: No change in exam. MEDICATIONS: The patient's medications have been reviewed. ASSESSMENT AND PLAN: 1. Sepsis secondary to pneumonia, bacteremia and fungal urinary tract i nfection. The patient's current on pressor support. Continue antimicrobial and antifungal therapy. Follow up with infectious disease. 2. Ventilator-dependent respiratory failure. The patient is status post trach. The patient's vent settings and ABG was reviewed. Continue to monitor. 3. Dysphagia, status post PEG. Continue tube feeding. 4. Volume overload. Continue intermittent diuretic therapy as needed. 5. Hypokalemia. Continue to monitor and replete. 6. Hypernatremia, etiology is secondary to hypoglycemia and hypertonic fluid. Plan is to discontinue hypertonic fluids, improved glycemic control and monitor sodium levels closely. 7. Metabolic alkalemia, improving. The patient is status post Diamox. 8. Left upper extremity swelling. Doppler ultrasounds negative for deep vein thrombosis. Continue to monitor. Continue to elevate arm. 9. Anemia. Continue to monitor hemoglobin and hematocrit levels. 10. Thrombocytopenia. Etiology is unclear, possibly due to recent Lovenox use. Plan is to hold Lovenox. We will place a hematology consult for evaluation. We will send out for HIT antibody. Monitor closely. 11. Nonoliguric acute kidney injury. Etiology is secondary to hemodynamics. Renal function is improved. Continue to monitor. 12. History of arrhythmia, status post pacemaker. 13. Diabetes. Continue current insulin regimen, adjust as needed. 14. History of ovarian cancer stage IV, status post chemotherapy and debulking surgery. 15. History of hypothyroidism. 16. History of arthritis. 17. Gastrointestinal and deep vein thrombosis prophylaxis. Result Diagram: 12/15/18 0400 12/15/18 0400 Results 24hrs Laboratory Tests Test 12/14/18 08:34 12/14/18 12:41 12/14/18 16:53 12/14/18 20:21 Bedside Glucose 163 153 113 112 Test 12/15/18 00:43 12/15/18 04:00 12/15/18 04:55 12/15/18 05:00 Bedside Glucose 94 77 White Blood Count 3.4 #L Red Blood Count 2.64 L Hemoglobin 7.8 L Hematocrit 24.2 L Mean Corpuscular 91.7 Volume Mean Corpuscular 29.5 Hemoglobin Mean Corpuscular 32.2 Hemoglobin Concent Red Cell 19.8 H Distribution Width Platelet Count 42 #L Mean Platelet 12.2 H Volume Immature 0.300 Granulocytes % Neutrophils % Segmented 92 H Neutrophils % (Manual) Band Neutrophils % 6 H (Manual) Lymphocytes % Lymphocytes % 1 L (Manual) Monocytes % Eosinophils % Basophils % Basophils % 1 (Manual) Nucleated Red 0.0 Blood Cells % Immature 0.010 Granulocytes # Neutrophils # Neutrophils # 3.1 (Manual) Band Neutrophils # 0.2 Lymphocytes 0.0 L (Manual) Lymphocytes # Monocytes # Eosinophils # Basophils # Basophils # 0.0 (Manual) Nucleated Red Blood Cells # Toxic Granulation 1+ Platelet Estimate DECREASED Giant Platelets 1 H Platelet @See below Morphology Comment Poikilocytosis 3+ Anisocytosis 1+ Ovalocytes 2+ Schistocytes 1+ Prothrombin Time 14.1 Prothrombin Time 1.1 Ratio INR International 1.08 Normalized Ratio Activated 25.[address] Time Thrombin Time 15.3 Fibrinogen 432.0 Plasma Fibrin Degradation Produc ts D-Dimer 2946.86 H D-Dimer Comment Sodium Level 138 Potassium Level 4.3 Chloride Level 105 Carbon Dioxide 32 H Level Anion Gap 1 L Blood Urea 18 Nitrogen Creatinine 0.23 L Est Glomerular Filtrat Rate mL/min Glucose Level 78 # Uric Acid 1.6 L Calcium Level 7.0 L Iron Level < 10 L Total Iron Binding 140 L Capacity Percent Iron Saturation Ferritin 365.0 H Lactate 584 Dehydrogenase Vitamin B12 Level Pending Folate 18.6 Thyroid 0.337 L Stimulating Hormone (TSH) Absolute 0.031 Reticulocyte Count Percent 1.2 Reticulocyte Count Blood Gas Specimen Blood arterial Source Arterial Blood 12/15/2018 5:10:40 Date Drawn AM Arterial Blood pH 7.473 H (Temp corrected) Arterial Blood 41.7 pCO2 (Temp correct) Arterial Blood pO2 89.0 (Temp corrected) Arterial Blood 29.9 H HCO3 Arterial Blood 5.7 H Base Excess Arterial Blood 96.0 Oxygen Saturation Jordi Test N/A Arterial Blood Gas Right Brachial Puncture Site Arterial 0.3 Blood Carboxyhemog lobin Arterial Blood 0.5 Methemoglobin Blood Gas A-a O2 75.9 H Differential Oxyhemoglobin 95.2 Percent Blood Gas 37.0 Temperature Blood Gas 14.0 Respiration Rate Blood Gas Actual 15 Respiration Rate Blood Gas Modality VENT - AC FiO2 30.0 Blood Gas Tidal 450.0 Volume Blood Gas Low PEEP 5.0 Setting Blood Gas Notified [place] Whom Blood Gas Notified 12/15/2018 5:21:16 Time AM Exam/Review of Systems Exam Vitals Vital Signs Date Temp Pulse Resp B/P (MAP) Pulse Ox O2 O2 Flow FiO2 Time Delivery Rate 12/15/18 88 16 103/70 Mechanical 06:00 (81) Ventilator 12/15/18 95 30 05:30 12/15/18 98.0 04:00 Intake and Output 12/14/18 12/14/18 12/15/18 1515:00 23:00 07:00 IntakeIntake Total 222.5 ml 336.5 ml 240.0 ml OutputOutput Total 340 ml 210 ml 135 ml BalanceBalance -117.5 ml 126.5 ml 105.0 ml Results Results 24hrs Laboratory Tests Test 12/14/18 08:34 12/14/18 12:41 12/14/18 16:53 12/14/18 20:21 Bedside Glucose 163 153 113 112 Test 12/15/18 00:43 12/15/18 04:00 12/15/18 04:55 12/15/18 05:00 Bedside Glucose 94 77 White Blood Count 3.4 #L Red Blood Count 2.64 L Hemoglobin 7.8 L Hematocrit 24.2 L Mean Corpuscular 91.7 Volume Mean Corpuscular 29.5 Hemoglobin Mean Corpuscular 32.2 Hemoglobin Concent Red Cell 19.8 H Distribution Width Platelet Count 42 #L Mean Platelet 12.2 H Volume Immature 0.300 Granulocytes % Neutrophils % Segmented 92 H Neutrophils % (Manual) Band Neutrophils % 6 H (Manual) Lymphocytes % Lymphocytes % 1 L (Manual) Monocytes % Eosinophils % Basophils % Basophils % 1 (Manual) Nucleated Red 0.0 Blood Cells % Immature 0.010 Granulocytes # Neutrophils # Neutrophils # 3.1 (Manual) Band Neutrophils # 0.2 Lymphocytes 0.0 L (Manual) Lymphocytes # Monocytes # Eosinophils # Basophils # Basophils # 0.0 (Manual) Nucleated Red Blood Cells # Toxic Granulation 1+ Platelet Estimate DECREASED Giant Platelets 1 H Platelet @See below Morphology Comment Poikilocytosis 3+ Anisocytosis 1+ Ovalocytes 2+ Schistocytes 1+ Prothrombin Time 14.1 Prothrombin Time 1.1 Ratio INR International 1.08 Normalized Ratio Activated 25.[address] Time Thrombin Time 15.3 Fibrinogen 432.0 Plasma Fibrin Degradation Produc ts D-Dimer 2946.86 H D-Dimer Comment Sodium Level 138 Potassium Level 4.3 Chloride Level 105 Carbon Dioxide 32 H Level Anion Gap 1 L Blood Urea 18 Nitrogen Creatinine 0.23 L Est Glomerular Filtrat Rate mL/min Glucose Level 78 # Uric Acid 1.6 L Calcium Level 7.0 L Iron Level < 10 L Total Iron Binding 140 L Capacity Percent Iron Saturation Ferritin 365.0 H Lactate 584 Dehydrogenase Vitamin B12 Level Pending Folate 18.6 Thyroid 0.337 L Stimulating Hormone (TSH) Absolute 0.031 Reticulocyte Count Percent 1.2 Reticulocyte Count Blood Gas Specimen Blood arterial Source Arterial Blood 12/15/2018 5:10:40 Date Drawn AM Arterial Blood pH 7.473 H (Temp corrected) Arterial Blood 41.7 pCO2 (Temp correct) Arterial Blood pO2 89.0 (Temp corrected) Arterial Blood 29.9 H HCO3 Arterial Blood 5.7 H Base Excess Arterial Blood 96.0 Oxygen Saturation Jordi Test N/A Arterial Blood Gas Right Brachial Puncture Site Arterial 0.3 Blood Carboxyhemog lobin Arterial Blood 0.5 Methemoglobin Blood Gas A-a O2 75.9 H Differential Oxyhemoglobin 95.2 Percent Blood Gas 37.0 Temperature Blood Gas 14.0 Respiration Rate Blood Gas Actual 15 Respiration Rate Blood Gas Modality VENT - AC FiO2 30.0 Blood Gas Tidal 450.0 Volume Blood Gas Low PEEP 5.0 Setting Blood Gas Notified [place] Whom Blood Gas Notified 12/15/2018 5:21:16 Time AM Medications Medication Current Medications Ondansetron HCl (Zofran Inj) 4 mg Q6H PRN IV NAUSEA AND/OR VOMITING; Start 11/26/18 at 01:00 Albuterol (Ventolin Hfa) 4 puff Q4H RESP THERAPY INH Last administered on 12/15/18 05:28; Admin Dose 4 PUFF; Start 11/26/18 at 01:00 Albuterol (Ventolin Hfa) 4 puff Q2H RESP THERAPY PRN INH SHORTNESS OF BREATH Last administered on 11/28/18 01:53; Admin Dose 4 PUFF; Start 11/26/18 at 01:00 Acetaminophen (Tylenol Liquid) 650 mg Q6H PRN PO PAIN LEVEL 1-3 OR FEVER; Start 11/26/18 at 01:00 Morphine Sulfate (morphine) 2 mg Q4H PRN IV PAIN LEVEL 7-10; Start 11/26/18 at 01:00 Lorazepam (Ativan) 1 mg Q2H PRN IV ANXIETY Last administered on 12/11/18 18:21; Admin Dose 1 MG; Start 11/26/18 at 01:00 Enoxaparin Sodium (Lovenox) 40 mg DAILY SC Last administered on 12/09/18 09:30; Admin Dose 40 MG; Start 11/26/18 at 09:00; Status Hold Norepinephrine 250 ml @ 1.875 mls/ hr TITRATE IV Last administered on 12/06/18 23:16; Admin Dose 9.375 MLS/HR; Start 11/26/18 at 09:00 Insulin Aspart (Novolog Insulin Pen) NOVOLOG *MILD* ALGORI... Q4 SC Last administered on 12/14/18 12:46; Admin Dose 1 UNIT; Start 11/26/18 at 13:00 Phenylephrine HCl 40 mg/Dextrose 250 ml @ 37.5 mls/hr TITRATE IV Last administered on 11/30/18 02:35; Admin Dose 3 MLS/HR; Start 11/26/18 at 11:00 Fentanyl 100 ml @ 2.5 mls/hr TITRATE IV Last administered on 12/14/18 21:47; Admin Dose 5 MLS/HR; Start 11/26/18 at 13:00 IV Flush (NS 10 ml) 10 ml PRN PRN IV IV PROTOCOL; Start 11/26/18 at 15:00 Lansoprazole (Prevacid) 30 mg DAILY@06 GTB Last administered on 12/15/18at 04:57; Admin Dose 30 MG; Start 11/28/18 at 06:00 Alendronate Sodium (Fosamax) 70 mg Mo@AC BREAKFAST PO Last administered on 12/09/18 05:34; Admin Dose 70 MG; Start 12/02/18 at 07:00 Furosemide (Lasix) 20 mg BID DIURETICS IV Last administered on 12/07/18at 05:39; Admin Dose 20 MG; Start 12/03/18 at 08:00; Status Hold Miscellaneous Information 1 ea NOTE XX ; Start 12/05/18 at 15:00 Glucose (Glutose) 15 gm Q15M PRN PO DECREASED GLUCOSE; Start 12/05/18 at 15:00 Glucose (Glutose) 22.5 gm Q15M PRN PO DECREASED GLUCOSE; Start 12/05/18 at 15:00 Dextrose (D50w Syringe) 25 ml Q15M PRN IV DECREASED GLUCOSE; Start 12/05/18 at 15:00 Dextrose (D50w Syringe) 50 ml Q15M PRN IV DECREASED GLUCOSE; Start 12/05/18 at 15:00 Glucagon (Glucagen) 1 mg Q15M PRN IM DECREASED GLUCOSE; Start 12/05/18 at 15:00 Glucose (Glutose) 15 gm Q15M PRN BUCCAL DECREASED GLUCOSE; Start 12/05/18 at 15:00 Calcitriol (Rocaltrol Liquid (Ped)) 0.25 mcg DAILY GTB Last administered on 12/14/18at 08:29; Admin Dose 0.25 MCG; Start 12/07/18 at 09:00 Midodrine (Proamatine) 10 mg TID@,,17 GTB Last administered on 12/14/18at 17:01; Admin Dose 10 MG; Start 12/07/18 at 09:00 Acetazolamide (Diamox) 500 mg DAILY IV Last administered on 12/09/18 09:27; Admin Dose 500 MG; Start 12/09/18 at 09:00; Status Hold Multivitamins (Multivitamin) 30 ml DAILY GTB Last administered on 12/14/18 08:29; Admin Dose 30 ML; Start 12/11/18 at 09:00 Ascorbic Acid (Vitamin C) 500 mg DAILY GTB Last administered on 12/14/18 08:29; Admin Dose 500 MG; Start 12/11/18 at 09:00 Folic Acid (Folic Acid) 1 mg DAILY GTB Last administered on 12/14/18 08:29; Admin Dose 1 MG; Start 12/11/18 at 09:00 Zinc Sulfate (Zinc Sulfate) 220 mg DAILY GTB Last administered on 12/14/18 08:29; Admin Dose 220 MG; Start 12/11/18 at 09:00 Methylprednisolone Sodium Succinate (Solu-Medrol) 40 mg Q12 IV Last administered on 12/14/18 20:20; Admin Dose 40 MG; Start 12/12/18 at 21:00 Insulin Glargine (Lantus) 16 units DAILY@1700 SC Last administered on 12/14/18 17:01; Admin Dose 16 UNITS; Start 12/14/18 at 17:00 Metoclopramide HCl (Reglan) 5 mg BID IV Last administered on 12/14/18 20:20; Admin Dose 5 MG; Start 12/14/18 at 21:00 KAT SALAZAR DO December 15, 2018 07:22
[2018-12-15] MEDS: MULTIVITAMINS 30 ML CUP GTB SCH (09:07)
[2018-12-15] MEDS: MIDODRINE 5 MG TAB GTB SCH ×3 (09:07→17:57)
[2018-12-15] MEDS: FOLIC ACID 1 MG TAB GTB SCH (09:07)
[2018-12-15] MEDS: CALCITRIOL (1 MCG/ML PO SYG) GTB SCH (09:07)
[2018-12-15] MEDS: METHYLPREDNISOLONE 40 MG INJ IV SCH ×2 (09:08→21:58)
[2018-12-15] MEDS: ASCORBIC ACID 500 MG TAB GTB SCH (09:08)
[2018-12-15] MEDS: BALSAM PERU/CASTOR OIL 60 GM TUBE TOP SCH ×2 (09:08→21:51)
[2018-12-15] MEDS: ZINC SULFATE 220 MG CAP GTB SCH (09:08)
[2018-12-15] MEDS: METOCLOPRAMIDE 10 MG INJ IV SCH ×2 (09:08→21:58)
--- NOTE | 2018-12-15 10:49 | CONS ---
Consult Date/Type/Reason Admit Date/Time Nov 25, 2018 at 23:59 Initial Consult Date 11/26/18 Type of Consultation: Pulm/CCM Requesting Provider: SHAUN CHRISTENSEN DO Date/Time of Note DATE: 12/15/18 TIME: 10:47 Subjective Did not tolerated SIMV with PS yesterday. Now awake and alert. Objective Vitals Vital Signs Date Temp Pulse Resp B/P (MAP) Pulse Ox O2 O2 Flow FiO2 Time Delivery Rate 12/15/18 90 18 112/89 100 Mechanical 10:00 (97) Ventilator 12/15/18 97.3 08:00 12/15/18 30 08:00 Intake and Output 12/14/18 12/14/18 12/15/18 1414:59 22:59 06:59 IntakeIntake Total 352.5 ml 306.5 ml 275.0 ml OutputOutput Total 340 ml 210 ml 155 ml BalanceBalance 12.5 ml 96.5 ml 120.0 ml Exam HEENT: Neck supple; no JVD; no LAD:+ trach CVS: RRR, S1 and S2 CHEST: Coarse BS b/l ABD: Soft, NT, + BS EXT: No c/c: + edema Results/Medications Result Diagram: 12/15/18 0400 12/15/18 0400 Results 24 hrs Laboratory Tests Test 12/14/18 12:41 12/14/18 16:53 12/14/18 20:21 12/15/18 00:43 Bedside Glucose 153 113 112 94 Test 12/15/18 04:00 12/15/18 04:55 12/15/18 05:00 12/15/18 09:06 White Blood Count 3.4 #L Red Blood Count 2.64 L Hemoglobin 7.8 L Hematocrit 24.2 L Mean Corpuscular 91.7 Volume Mean Corpuscular 29.5 Hemoglobin Mean Corpuscular 32.2 Hemoglobin Concent Red Cell 19.8 H Distribution Width Platelet Count 42 #L Mean Platelet 12.2 H Volume Immature 0.300 Granulocytes % Neutrophils % Segmented 92 H Neutrophils % (Manual) Band Neutrophils % 6 H (Manual) Lymphocytes % Lymphocytes % 1 L (Manual) Monocytes % Eosinophils % Basophils % Basophils % 1 (Manual) Nucleated Red 0.0 Blood Cells % Immature 0.010 Granulocytes # Neutrophils # Neutrophils # 3.1 (Manual) Band Neutrophils # 0.2 Lymphocytes 0.0 L (Manual) Lymphocytes # Monocytes # Eosinophils # Basophils # Basophils # 0.0 (Manual) Nucleated Red Blood Cells # Toxic Granulation 1+ Platelet Estimate DECREASED Giant Platelets 1 H Platelet @See below Morphology Comment Poikilocytosis 3+ Anisocytosis 1+ Ovalocytes 2+ Schistocytes 1+ Erythrocyte 20 Sedimentation Rate Prothrombin Time 14.1 Prothrombin Time 1.1 Ratio INR International 1.08 Normalized Ratio Activated 25.[address] Time Thrombin Time 15.3 Fibrinogen 432.0 Plasma Fibrin Degradation Produc ts D-Dimer 2946.86 H D-Dimer Comment Sodium Level 138 Potassium Level 4.3 Chloride Level 105 Carbon Dioxide 32 H Level Anion Gap 1 L Blood Urea 18 Nitrogen Creatinine 0.23 L Est Glomerular Filtrat Rate mL/min Glucose Level 78 # Uric Acid 1.6 L Calcium Level 7.0 L Iron Level < 10 L Total Iron Binding 140 L Capacity Percent Iron Saturation Ferritin 365.0 H Lactate 584 Dehydrogenase Vitamin B12 Level > 1000 H Folate 18.6 Thyroid 0.337 L Stimulating Hormone (TSH) Bedside Glucose 77 89 Absolute 0.031 Reticulocyte Count Percent 1.2 Reticulocyte Count Blood Gas Specimen Blood arterial Source Arterial Blood 12/15/2018 5:10:40 Date Drawn AM Arterial Blood pH 7.473 H (Temp corrected) Arterial Blood 41.7 pCO2 (Temp correct) Arterial Blood pO2 89.0 (Temp corrected) Arterial Blood 29.9 H HCO3 Arterial Blood 5.7 H Base Excess Arterial Blood 96.0 Oxygen Saturation Jordi Test N/A Arterial Blood Gas Right Brachial Puncture Site Arterial 0.3 Blood Carboxyhemog lobin Arterial Blood 0.5 Methemoglobin Blood Gas A-a O2 75.9 H Differential Oxyhemoglobin 95.2 Percent Blood Gas 37.0 Temperature Blood Gas 14.0 Respiration Rate Blood Gas Actual 15 Respiration Rate Blood Gas Modality VENT - AC FiO2 30.0 Blood Gas Tidal 450.0 Volume Blood Gas Low PEEP 5.0 Setting Blood Gas Notified [place] Whom Blood Gas Notified 12/15/2018 5:21:16 Time AM Home Meds Reported Medications Acetaminophen* (Tylenol*) 325 Mg Tablet, 650 MG PO Q6H PRN for PAIN AND OR ELEVATED TEMP, TAB 11/30/18 Magnesium Oxide* (Mag-Oxide*) 400 Mg Tablet, 400 MG PO BID, TAB 11/30/18 Levothyroxine Sodium* (Synthroid*) 50 Mcg Tablet, 50 MCG PO BEFORE BREAKFAST, #30 TAB 11/30/18 Potassium Chloride* (Potassium Chloride*) 8 Meq Capsule.er, 10 MEQ PO BID, CAP 11/30/18 Furosemide* (Furosemide*) 40 Mg Tablet, 40 MG PO DAILY, TAB 11/30/18 Cyanocobalamin (B12 Health Booster) 1,000 Mcg/15 Ml Oral.susp, 5000 MCG PO DAILY 11/30/18 Atorvastatin Calcium (Atorvastatin Calcium) 10 Mg Tablet, 10 MG PO QHS, #30 TAB 11/30/18 Aspirin* (Devon Aspirin* Chew) 81 Mg Tab.chew, 81 MG PO BID, TAB.CHEW 11/30/18 Acetazolamide* (Acetazolamide*) 250 Mg Tablet, 250 MG PO DAILY, #60 TAB 11/30/18 Alendronate Sodium* (Fosamax*) 70 Mg Tablet, 70 MG PO Q7D, #4 TAB 11/30/18 Medications Current Medications Ondansetron HCl (Zofran Inj) 4 mg Q6H PRN IV NAUSEA AND/OR VOMITING; Start 11/11 01/29 at 01:00 Albuterol (Ventolin Hfa) 4 puff Q4H RESP THERAPY INH Last administered on 12/15/18at 09:26; Admin Dose 4 PUFF; Start 11/26/18 at 01:00 Albuterol (Ventolin Hfa) 4 puff Q2H RESP THERAPY PRN INH SHORTNESS OF BREATH Last administered on 11/28/18at 01:53; Admin Dose 4 PUFF; Start 11/26/18 at 01:00 Acetaminophen (Tylenol Liquid) 650 mg Q6H PRN PO PAIN LEVEL 1-3 OR FEVER; Start 11/26/18 at 01:00 Morphine Sulfate (morphine) 2 mg Q4H PRN IV PAIN LEVEL 7-10; Start 11/26/18 at 01:00 Lorazepam (Ativan) 1 mg Q2H PRN IV ANXIETY Last administered on 12/11/18at 18:21; Admin Dose 1 MG; Start 11/26/18 at 01:00 Enoxaparin Sodium (Lovenox) 40 mg DAILY SC Last administered on 12/09/18at 09:30; Admin Dose 40 MG; Start 11/26/18 at 09:00; Status Hold Norepinephrine 250 ml @ 1.875 mls/ hr TITRATE IV Last administered on 12/06/18at 23:16; Admin Dose 9.375 MLS/HR; Start 11/26/18 at 09:00 Insulin Aspart (Novolog Insulin Pen) NOVOLOG *MILD* ALGORI... Q4 SC Last administered on 12/14/18at 12:46; Admin Dose 1 UNIT; Start 11/26/18 at 13:00 Phenylephrine HCl 40 mg/Dextrose 250 ml @ 37.5 mls/hr TITRATE IV Last administered on 11/30/18at 02:35; Admin Dose 3 MLS/HR; Start 11/26/18 at 11:00 Fentanyl 100 ml @ 2.5 mls/hr TITRATE IV Last administered on 12/14/18at 21:47; Admin Dose 5 MLS/HR; Start 11/26/18 at 13:00 IV Flush (NS 10 ml) 10 ml PRN PRN IV IV PROTOCOL; Start 11/26/18 at 15:00 Lansoprazole (Prevacid) 30 mg DAILY@06 GTB Last administered on 12/15/18at 04:57; Admin Dose 30 MG; Start 11/28/18 at 06:00 Alendronate Sodium (Fosamax) 70 mg Mo@AC BREAKFAST PO Last administered on 12/09/18at 05:34; Admin Dose 70 MG; Start 12/02/18 at 07:00 Furosemide (Lasix) 20 mg BID DIURETICS IV Last administered on 12/07/18at 05:39; Admin Dose 20 MG; Start 12/03/18 at 08:00; Status Hold Miscellaneous Information 1 ea NOTE XX ; Start 12/05/18 at 15:00 Glucose (Glutose) 15 gm Q15M PRN PO DECREASED GLUCOSE; Start 12/05/18 at 15:00 Glucose (Glutose) 22.5 gm Q15M PRN PO DECREASED GLUCOSE; Start 12/05/18 at 15:00 Dextrose (D50w Syringe) 25 ml Q15M PRN IV DECREASED GLUCOSE; Start 12/05/18 at 15:00 Dextrose (D50w Syringe) 50 ml Q15M PRN IV DECREASED GLUCOSE; Start 12/05/18 at 15:00 Glucagon (Glucagen) 1 mg Q15M PRN IM DECREASED GLUCOSE; Start 12/05/18 at 15:00 Glucose (Glutose) 15 gm Q15M PRN BUCCAL DECREASED GLUCOSE; Start 12/05/18 at 15:00 Calcitriol (Rocaltrol Liquid (Ped)) 0.25 mcg DAILY GTB Last administered on 12/15/18 09:07; Admin Dose 0.25 MCG; Start 12/07/18 at 09:00 Midodrine (Proamatine) 10 mg TID@,13,17 GTB Last administered on 12/15/18 09:07; Admin Dose 10 MG; Start 12/07/18 at 09:00 Acetazolamide (Diamox) 500 mg DAILY IV Last administered on 12/09/18 09:27; Admin Dose 500 MG; Start 12/09/18 at 09:00; Status Hold Multivitamins (Multivitamin) 30 ml DAILY GTB Last administered on 12/15/18 09:07; Admin Dose 30 ML; Start 12/11/18 at 09:00 Ascorbic Acid (Vitamin C) 500 mg DAILY GTB Last administered on 12/15/18 09:08; Admin Dose 500 MG; Start 12/11/18 at 09:00 Folic Acid (Folic Acid) 1 mg DAILY GTB Last administered on 12/15/18 09:07; Admin Dose 1 MG; Start 12/11/18 at 09:00 Zinc Sulfate (Zinc Sulfate) 220 mg DAILY GTB Last administered on 12/15/18 09:08; Admin Dose 220 MG; Start 12/11/18 at 09:00 Methylprednisolone Sodium Succinate (Solu-Medrol) 40 mg Q12 IV Last administered on 12/15/18 09:08; Admin Dose 40 MG; Start 12/12/18 at 21:00 Insulin Glargine (Lantus) 16 units DAILY@1700 SC Last administered on 12/14/18 17:01; Admin Dose 16 UNITS; Start 12/14/18 at 17:00 Metoclopramide HCl (Reglan) 5 mg BID IV Last administered on 12/15/18 09:08; Admin Dose 5 MG; Start 12/14/18 at 21:00 Assessment/Plan Assessment/Plan (Daily) IMP: 1. Sepsis 2. Hypercapnic Resp Failure/Failure to wean--s/p trach POD#3--did not tolerated SIMV/PS weaning 3. s/p NSTEMI 4. Anemia 5. HypoK+ 6. Hypothyroidism 7. Severe cachexia 8. h/o metastatic ovarian cancer 9. Thrombocytopenia RECS: 1. Will retry SIMV/PS tomorrow 2. Optimize nutritional status 3. Follow H/H; transfuse if Hgb < 7 4. Minimize sedation 5. CPT/suctioning 6. Candidate for Lira 35 min cc time SHANEL MISHRA MD December 15, 2018 10:49
--- NOTE | 2018-12-15 11:53 | CONS ---
Assessment/Plan Assessment/Plan Hospital Course (Demo Recall) Awake, looks comfortable, no fevers overnight. Microbiology: Urine cx + Nicole albicans, sputum culture grew Nicole albicans/E coli===> s/p abx Indwelling: Trach, PEG, Das, right upper extremity PICC line Physical examination: This is a chronically ill-appearing wasted elderly woman who is intubated sedated in no distress. Head atraumatic normocephalic neck is supple chest rise symmetrical breath sounds diminished bases heart: S1-S2 abdomen soft bowel sounds present extremities without cyanosis Assessment: 1. S/p sepsis 2. Acute on chronic hypoxemic respiratory failure, s/p trach 3. Bilateral pneumonia 4. Nicole albicans UTI 5. Coronary artery disease with a history of mitral valve replacement Plan: Remains stable, off abx, pending [facility] family Consultation Date/Type/Reason Admit Date/Time Nov 25, 2018 at 23:59 Initial Consult Date 11/26/18 Type of Consult id Requesting Provider: SHAUN CHRISTENSEN DO Date/Time of Note DATE: 12/15/18 TIME: 11:52 Exam/Review of Systems Exam Vitals Vital Signs Date Temp Pulse Resp B/P (MAP) Pulse Ox O2 O2 Flow FiO2 Time Delivery Rate 12/15/18 90 18 112/89 100 Mechanical 10:00 (97) Ventilator 12/15/18 97.3 08:00 12/15/18 30 08:00 Intake and Output 12/14/18 12/14/18 12/15/18 1515:00 23:00 07:00 IntakeIntake Total 222.5 ml 336.5 ml 372.5 ml OutputOutput Total 340 ml 210 ml 170 ml BalanceBalance -117.5 ml 126.5 ml 202.5 ml Results Result Diagram: 12/15/18 0400 12/15/18 0400 Results 24hrs Laboratory Tests Test 12/14/18 12:41 12/14/18 16:53 12/14/18 20:21 12/15/18 00:43 Bedside Glucose 153 113 112 94 Test 12/15/18 04:00 12/15/18 04:55 12/15/18 05:00 12/15/18 09:06 White Blood Count 3.4 #L Red Blood Count 2.64 L Hemoglobin 7.8 L Hematocrit 24.2 L Mean Corpuscular 91.7 Volume Mean Corpuscular 29.5 Hemoglobin Mean Corpuscular 32.2 Hemoglobin Concent Red Cell 19.8 H Distribution Width Platelet Count 42 #L Mean Platelet 12.2 H Volume Immature 0.300 Granulocytes % Neutrophils % Segmented 92 H Neutrophils % (Manual) Band Neutrophils % 6 H (Manual) Lymphocytes % Lymphocytes % 1 L (Manual) Monocytes % Eosinophils % Basophils % Basophils % 1 (Manual) Nucleated Red 0.0 Blood Cells % Immature 0.010 Granulocytes # Neutrophils # Neutrophils # 3.1 (Manual) Band Neutrophils # 0.2 Lymphocytes 0.0 L (Manual) Lymphocytes # Monocytes # Eosinophils # Basophils # Basophils # 0.0 (Manual) Nucleated Red Blood Cells # Toxic Granulation 1+ Platelet Estimate DECREASED Giant Platelets 1 H Platelet @See below Morphology Comment Poikilocytosis 3+ Anisocytosis 1+ Ovalocytes 2+ Schistocytes 1+ Erythrocyte 20 Sedimentation Rate Prothrombin Time 14.1 Prothrombin Time 1.1 Ratio INR International 1.08 Normalized Ratio Activated 25.[address] Time Thrombin Time 15.3 Fibrinogen 432.0 Plasma Fibrin Degradation Produc ts D-Dimer 2946.86 H D-Dimer Comment Sodium Level 138 Potassium Level 4.3 Chloride Level 105 Carbon Dioxide 32 H Level Anion Gap 1 L Blood Urea 18 Nitrogen Creatinine 0.23 L Est Glomerular Filtrat Rate mL/min Glucose Level 78 # Uric Acid 1.6 L Calcium Level 7.0 L Iron Level < 10 L Total Iron Binding 140 L Capacity Percent Iron Saturation Ferritin 365.0 H Lactate 584 Dehydrogenase Vitamin B12 Level > 1000 H Folate 18.6 Thyroid 0.337 L Stimulating Hormone (TSH) Bedside Glucose 77 89 Absolute 0.031 Reticulocyte Count Percent 1.2 Reticulocyte Count Blood Gas Specimen Blood arterial Source Arterial Blood 12/15/2018 5:10:40 Date Drawn AM Arterial Blood pH 7.473 H (Temp corrected) Arterial Blood 41.7 pCO2 (Temp correct) Arterial Blood pO2 89.0 (Temp corrected) Arterial Blood 29.9 H HCO3 Arterial Blood 5.7 H Base Excess Arterial Blood 96.0 Oxygen Saturation Jordi Test N/A Arterial Blood Gas Right Brachial Puncture Site Arterial 0.3 Blood Carboxyhemog lobin Arterial Blood 0.5 Methemoglobin Blood Gas A-a O2 75.9 H Differential Oxyhemoglobin 95.2 Percent Blood Gas 37.0 Temperature Blood Gas 14.0 Respiration Rate Blood Gas Actual 15 Respiration Rate Blood Gas Modality VENT - AC FiO2 30.0 Blood Gas Tidal 450.0 Volume Blood Gas Low PEEP 5.0 Setting Blood Gas Notified [place] Whom Blood Gas Notified 12/15/2018 5:21:16 Time AM Medications Medication Current Medications Ondansetron HCl (Zofran Inj) 4 mg Q6H PRN IV NAUSEA AND/OR VOMITING; Start 11/26/18 at 01:00 Albuterol (Ventolin Hfa) 4 puff Q4H RESP THERAPY INH Last administered on 12/15/18 09:26; Admin Dose 4 PUFF; Start 11/26/18 at 01:00 Albuterol (Ventolin Hfa) 4 puff Q2H RESP THERAPY PRN INH SHORTNESS OF BREATH Last administered on 11/28/18 01:53; Admin Dose 4 PUFF; Start 11/26/18 at 01:00 Acetaminophen (Tylenol Liquid) 650 mg Q6H PRN PO PAIN LEVEL 1-3 OR FEVER; Start 11/26/18 at 01:00 Morphine Sulfate (morphine) 2 mg Q4H PRN IV PAIN LEVEL 7-10; Start 11/26/18 at 01:00 Lorazepam (Ativan) 1 mg Q2H PRN IV ANXIETY Last administered on 12/11/18 18:21; Admin Dose 1 MG; Start 11/26/18 at 01:00 Enoxaparin Sodium (Lovenox) 40 mg DAILY SC Last administered on 12/09/18 09:30; Admin Dose 40 MG; Start 11/26/18 at 09:00; Status Hold Norepinephrine 250 ml @ 1.875 mls/ hr TITRATE IV Last administered on 12/06/18 23:16; Admin Dose 9.375 MLS/HR; Start 11/26/18 at 09:00 Insulin Aspart (Novolog Insulin Pen) NOVOLOG *MILD* ALGORI... Q4 SC Last administered on 12/14/18 12:46; Admin Dose 1 UNIT; Start 11/26/18 at 13:00 Phenylephrine HCl 40 mg/Dextrose 250 ml @ 37.5 mls/hr TITRATE IV Last administered on 11/30/18 02:35; Admin Dose 3 MLS/HR; Start 11/26/18 at 11:00 Fentanyl 100 ml @ 2.5 mls/hr TITRATE IV Last administered on 5/4/19at 21:47; Admin Dose 5 MLS/HR; Start 11/26/18 at 13:00 IV Flush (NS 10 ml) 10 ml PRN PRN IV IV PROTOCOL; Start 11/26/18 at 15:00 Lansoprazole (Prevacid) 30 mg DAILY@06 GTB Last administered on 12/15/18 04:57; Admin Dose 30 MG; Start 11/28/18 at 06:00 Alendronate Sodium (Fosamax) 70 mg Mo@AC BREAKFAST PO Last administered on 12/09/18at 05:34; Admin Dose 70 MG; Start 12/02/18 at 07:00 Furosemide (Lasix) 20 mg BID DIURETICS IV Last administered on 12/07/18at 05:39; Admin Dose 20 MG; Start 12/03/18 at 08:00; Status Hold Miscellaneous Information 1 ea NOTE XX ; Start 12/05/18 at 15:00 Glucose (Glutose) 15 gm Q15M PRN PO DECREASED GLUCOSE; Start 12/05/18 at 15:00 Glucose (Glutose) 22.5 gm Q15M PRN PO DECREASED GLUCOSE; Start 12/05/18 at 15:00 Dextrose (D50w Syringe) 25 ml Q15M PRN IV DECREASED GLUCOSE; Start 12/05/18 at 15:00 Dextrose (D50w Syringe) 50 ml Q15M PRN IV DECREASED GLUCOSE; Start 12/05/18 at 15:00 Glucagon (Glucagen) 1 mg Q15M PRN IM DECREASED GLUCOSE; Start 12/05/18 at 15:00 Glucose (Glutose) 15 gm Q15M PRN BUCCAL DECREASED GLUCOSE; Start 12/05/18 at 15:00 Calcitriol (Rocaltrol Liquid (Ped)) 0.25 mcg DAILY GTB Last administered on 12/15/18 09:07; Admin Dose 0.25 MCG; Start 12/07/18 at 09:00 Midodrine (Proamatine) 10 mg TID@,, GTB Last administered on 12/15/18at 09:07; Admin Dose 10 MG; Start 12/07/18 at 09:00 Acetazolamide (Diamox) 500 mg DAILY IV Last administered on 12/09/18at 09:27; Admin Dose 500 MG; Start 12/09/18 at 09:00; Status Hold Multivitamins (Multivitamin) 30 ml DAILY GTB Last administered on 12/15/18 09:07; Admin Dose 30 ML; Start 12/11/18 at 09:00 Ascorbic Acid (Vitamin C) 500 mg DAILY GTB Last administered on 12/15/18 09:08; Admin Dose 500 MG; Start 12/11/18 at 09:00 Folic Acid (Folic Acid) 1 mg DAILY GTB Last administered on 12/15/18 09:07; Admin Dose 1 MG; Start 12/11/18 at 09:00 Zinc Sulfate (Zinc Sulfate) 220 mg DAILY GTB Last administered on 12/15/18 09:08; Admin Dose 220 MG; Start 12/11/18 at 09:00 Methylprednisolone Sodium Succinate (Solu-Medrol) 40 mg Q12 IV Last administered on 12/15/18 09:08; Admin Dose 40 MG; Start 12/12/18 at 21:00 Insulin Glargine (Lantus) 16 units DAILY@1700 SC Last administered on 12/14/18 17:01; Admin Dose 16 UNITS; Start 12/14/18 at 17:00 Metoclopramide HCl (Reglan) 5 mg BID IV Last administered on 12/15/18 09:08; Admin Dose 5 MG; Start 12/14/18 at 21:00 JODY BOYD NP December 15, 2018 11:53
--- NOTE | 2018-12-15 16:04 | CONS ---
Assessment/Plan Assessment/Plan Assessment/Plan (Daily) Assessment/Plan Assessment/Plan (Daily) Assessment/Plan (Daily) Hospital Course (Demo Recall) 83 yo female with Vent dependent respiratory failure needs a PEG 1. Dysphasia -PEG placement done yesterday on 12/10/2018 2. Pneumonia -resp cx positive for E. Coli and Nicole albicans 3. UTI -Nicole albicans 4. Vent dependent respiratory failure -plan for trach 5. Anemia due to chronic disease -negative FOB No evidence of active bleeding 6. Diabetes mellitus 7. H/o ovarian cancer with total hysterectomy 20 years ago 8. Pacemaker status 9. H/O mitral valve replacement 10 status post G-tube placement 11. Status post tracheostomy 12. Gastroparesis Plan: Replace K, check K after replacement Hold anti coagulants Patient is tolerating feeding continue present care Monitor H&H and transfuse on as-needed basis Continue present care Case was discussed with the son Patient will be started on Reglan Consultation Date/Type/Reason Admit Date/Time Nov 25, 2018 at 23:59 Initial Consult Date 12/09/18 Requesting Provider: SHAUN CHRISTENSEN DO Date/Time of Note DATE: 12/15/18 TIME: 16:03 24 HR Interval Summary Constitutional: no complaints, improved Exam/Review of Systems Exam Vitals Vital Signs Date Temp Pulse Resp B/P (MAP) Pulse Ox O2 O2 Flow FiO2 Time Delivery Rate 12/15/18 102 23 105/76 100 Mechanical 14:00 (86) Ventilator 12/15/18 98.3 12:00 12/15/18 30 08:00 Intake and Output 12/14/18 12/14/18 12/15/18 1515:00 23:00 07:00 IntakeIntake Total 222.5 ml 336.5 ml 372.5 ml OutputOutput Total 340 ml 210 ml 170 ml BalanceBalance -117.5 ml 126.5 ml 202.5 ml ENMT: intubated Neck: supple, non-tender Musculoskeletal: nl gait and stance Results Result Diagram: 12/15/18 0400 12/15/18 0400 Results 24hrs Laboratory Tests Test 12/14/18 16:53 12/14/18 20:21 12/15/18 00:43 12/15/18 04:00 Bedside Glucose 113 112 94 White Blood Count 3.4 #L Red Blood Count 2.64 L Hemoglobin 7.8 L Hematocrit 24.2 L Mean Corpuscular 91.7 Volume Mean Corpuscular 29.5 Hemoglobin Mean Corpuscular 32.2 Hemoglobin Concent Red Cell 19.8 H Distribution Width Platelet Count 42 #L Mean Platelet 12.2 H Volume Immature 0.300 Granulocytes % Neutrophils % Segmented 92 H Neutrophils % (Manual) Band Neutrophils % 6 H (Manual) Lymphocytes % Lymphocytes % 1 L (Manual) Monocytes % Eosinophils % Basophils % Basophils % 1 (Manual) Nucleated Red 0.0 Blood Cells % Immature 0.010 Granulocytes # Neutrophils # Neutrophils # 3.1 (Manual) Band Neutrophils # 0.2 Lymphocytes 0.0 L (Manual) Lymphocytes # Monocytes # Eosinophils # Basophils # Basophils # 0.0 (Manual) Nucleated Red Blood Cells # Toxic Granulation 1+ Platelet Estimate DECREASED Giant Platelets 1 H Platelet @See below Morphology Comment Poikilocytosis 3+ Anisocytosis 1+ Ovalocytes 2+ Schistocytes 1+ Erythrocyte 20 Sedimentation Rate Prothrombin Time 14.1 Prothrombin Time 1.1 Ratio INR International 1.08 Normalized Ratio Activated 25.[address] Time Thrombin Time 15.3 Fibrinogen 432.0 Plasma Fibrin Degradation Produc ts D-Dimer 2946.86 H D-Dimer Comment Sodium Level 138 Potassium Level 4.3 Chloride Level 105 Carbon Dioxide 32 H Level Anion Gap 1 L Blood Urea 18 Nitrogen Creatinine 0.23 L Est Glomerular Filtrat Rate mL/min Glucose Level 78 # Uric Acid 1.6 L Calcium Level 7.0 L Iron Level < 10 L Total Iron Binding 140 L Capacity Percent Iron Saturation Ferritin 365.0 H Lactate 584 Dehydrogenase Vitamin B12 Level > 1000 H Folate 18.6 Thyroid 0.337 L Stimulating Hormone (TSH) Test 12/15/18 04:55 12/15/18 05:00 12/15/18 09:06 12/15/18 14:15 Bedside Glucose 77 89 83 Absolute 0.031 Reticulocyte Count Percent 1.2 Reticulocyte Count Blood Gas Specimen Blood arterial Source Arterial Blood 12/15/2018 5:10:40 Date Drawn AM Arterial Blood pH 7.473 H (Temp corrected) Arterial Blood 41.7 pCO2 (Temp correct) Arterial Blood pO2 89.0 (Temp corrected) Arterial Blood 29.9 H HCO3 Arterial Blood 5.7 H Base Excess Arterial Blood 96.0 Oxygen Saturation Jordi Test N/A Arterial Blood Gas Right Brachial Puncture Site Arterial 0.3 Blood Carboxyhemog lobin Arterial Blood 0.5 Methemoglobin Blood Gas A-a O2 75.9 H Differential Oxyhemoglobin 95.2 Percent Blood Gas 37.0 Temperature Blood Gas 14.0 Respiration Rate Blood Gas Actual 15 Respiration Rate Blood Gas Modality VENT - AC FiO2 30.0 Blood Gas Tidal 450.0 Volume Blood Gas Low PEEP 5.0 Setting Blood Gas Notified MA Whom Blood Gas Notified 12/15/2018 5:21:16 Time AM Medications Medication Current Medications Ondansetron HCl (Zofran Inj) 4 mg Q6H PRN IV NAUSEA AND/OR VOMITING; Start 11/26/18 at 01:00 Albuterol (Ventolin Hfa) 4 puff Q4H RESP THERAPY INH Last administered on 12/15/18 13:56; Admin Dose 4 PUFF; Start 11/26/18 at 01:00 Albuterol (Ventolin Hfa) 4 puff Q2H RESP THERAPY PRN INH SHORTNESS OF BREATH Last administered on 11/28/18 01:53; Admin Dose 4 PUFF; Start 11/26/18 at 01:00 Acetaminophen (Tylenol Liquid) 650 mg Q6H PRN PO PAIN LEVEL 1-3 OR FEVER; Start 11/26/18 at 01:00 Morphine Sulfate (morphine) 2 mg Q4H PRN IV PAIN LEVEL 7-10; Start 11/26/18 at 01:00 Lorazepam (Ativan) 1 mg Q2H PRN IV ANXIETY Last administered on 12/11/18 18:21; Admin Dose 1 MG; Start 11/26/18 at 01:00 Enoxaparin Sodium (Lovenox) 40 mg DAILY SC Last administered on 12/09/18 09:30; Admin Dose 40 MG; Start 11/26/18 at 09:00; Status Hold Norepinephrine 250 ml @ 1.875 mls/ hr TITRATE IV Last administered on 12/06/18 23:16; Admin Dose 9.375 MLS/HR; Start 11/26/18 at 09:00 Insulin Aspart (Novolog Insulin Pen) NOVOLOG *MILD* ALGORI... Q4 SC Last administered on 12/14/18 12:46; Admin Dose 1 UNIT; Start 11/26/18 at 13:00 Phenylephrine HCl 40 mg/Dextrose 250 ml @ 37.5 mls/hr TITRATE IV Last administered on 11/30/18at 02:35; Admin Dose 3 MLS/HR; Start 11/26/18 at 11:00 Fentanyl 100 ml @ 2.5 mls/hr TITRATE IV Last administered on 12/14/18at 21:47; Admin Dose 5 MLS/HR; Start 11/26/18 at 13:00 IV Flush (NS 10 ml) 10 ml PRN PRN IV IV PROTOCOL; Start 11/26/18 at 15:00 Lansoprazole (Prevacid) 30 mg DAILY@06 GTB Last administered on 12/15/18at 04:57; Admin Dose 30 MG; Start 11/28/18 at 06:00 Alendronate Sodium (Fosamax) 70 mg Mo@AC BREAKFAST PO Last administered on 12/09/18 05:34; Admin Dose 70 MG; Start 12/02/18 at 07:00 Furosemide (Lasix) 20 mg BID DIURETICS IV Last administered on 12/07/18at 05:39; Admin Dose 20 MG; Start 12/03/18 at 08:00; Status Hold Miscellaneous Information 1 ea NOTE XX ; Start 12/05/18 at 15:00 Glucose (Glutose) 15 gm Q15M PRN PO DECREASED GLUCOSE; Start 12/05/18 at 15:00 Glucose (Glutose) 22.5 gm Q15M PRN PO DECREASED GLUCOSE; Start 12/05/18 at 15:00 Dextrose (D50w Syringe) 25 ml Q15M PRN IV DECREASED GLUCOSE; Start 12/05/18 at 15:00 Dextrose (D50w Syringe) 50 ml Q15M PRN IV DECREASED GLUCOSE; Start 12/05/18 at 15:00 Glucagon (Glucagen) 1 mg Q15M PRN IM DECREASED GLUCOSE; Start 12/05/18 at 15:00 Glucose (Glutose) 15 gm Q15M PRN BUCCAL DECREASED GLUCOSE; Start 12/05/18 at 15:00 Calcitriol (Rocaltrol Liquid (Ped)) 0.25 mcg DAILY GTB Last administered on 12/15/18at 09:07; Admin Dose 0.25 MCG; Start 12/07/18 at 09:00 Midodrine (Proamatine) 10 mg TID@,,17 GTB Last administered on 12/15/18at 14:00; Admin Dose 10 MG; Start 12/07/18 at 09:00 Acetazolamide (Diamox) 500 mg DAILY IV Last administered on 12/09/18 09:27; Admin Dose 500 MG; Start 12/09/18 at 09:00; Status Hold Multivitamins (Multivitamin) 30 ml DAILY GTB Last administered on 12/15/18 09:07; Admin Dose 30 ML; Start 12/11/18 at 09:00 Ascorbic Acid (Vitamin C) 500 mg DAILY GTB Last administered on 12/15/18 09:08; Admin Dose 500 MG; Start 12/11/18 at 09:00 Folic Acid (Folic Acid) 1 mg DAILY GTB Last administered on 12/15/18 09:07; Admin Dose 1 MG; Start 12/11/18 at 09:00 Zinc Sulfate (Zinc Sulfate) 220 mg DAILY GTB Last administered on 12/15/18 09:08; Admin Dose 220 MG; Start 12/11/18 at 09:00 Methylprednisolone Sodium Succinate (Solu-Medrol) 40 mg Q12 IV Last administered on 12/15/18 09:08; Admin Dose 40 MG; Start 12/12/18 at 21:00 Insulin Glargine (Lantus) 16 units DAILY@1700 SC Last administered on 12/14/18 17:01; Admin Dose 16 UNITS; Start 12/14/18 at 17:00 Metoclopramide HCl (Reglan) 5 mg BID IV Last administered on 12/15/18 09:08; Admin Dose 5 MG; Start 12/14/18 at 21:00 GOMEZ BARBA MD December 15, 2018 16:04
[2018-12-15] MEDS: INSULIN GLARGINE [LANTus] (100 UNITS/ML) SYG SC SCH (18:10)
--- NOTE | 2018-12-15 21:54 | CONS ---
Assessment/Plan Assessment/Plan Hospital Course (Demo Recall) Anemia. N-CYTIC WITH INCREASED RDW Continue to monitor hemoglobin and hematocrit levels. W-UP C/W ACD STOOL NEG FOR OB Thrombocytopenia. IN PT WITH SEPSIS EXPOSED TO MULTIPLE MEDS INCLUDING HEPARIN Etiology is unclear, possibly due to recent Lovenox use. Lovenox. - ON HOLD HIT antibody. - P DIC PROFILE- NEG History of ovarian cancer stage IV, currently in remission. The patient is status post chemotherapy and major debulking surgeries. BECCA D/W DAUGHTER Sepsis secondary to pneumonia, bacteremia and fungal urinary tract infection. Ventilator-dependent respiratory failure. The patient is status post trach. Dysphagia, status post PEG. Continue tube feeding. Volume overload Hypokalemia. Hypernatremia, etiology is secondary to hypoglycemia and hypertonic fluid. Metabolic alkalemia, improving. Left upper extremity swelling. Doppler ultrasounds negative for deep vein thrombosis. Co ntinue to monitor. Continue to elevate arm. Nonoliguric acute kidney injury. History of arrhythmia, status post pacemaker. Diabetes. History of hypothyroidism. History of arthritis. Gastrointestinal and deep vein thrombosis prophylaxis. Consultation Date/Type/Reason Admit Date/Time Nov 25, 2018 at 23:59 Initial Consult Date 12/13/18 Type of Consult [facility] Requesting Provider: SHAUN CHRISTENSEN DO Date/Time of Note DATE: 12/15/18 TIME: 21:50 24 HR Interval Summary Free Text/Dictation all noted NAD Did not tolerated SIMV with PS yesterday. Now awake and alert. NO BLEEDING COUNT REVIEWED Exam/Review of Systems Exam Vitals Vital Signs Date Temp Pulse Resp B/P (MAP) Pulse Ox O2 O2 Flow FiO2 Time Delivery Rate 12/15/18 110 25 95 40 21:20 12/15/18 89/59 (69) Mechanical 18:00 Ventilator 12/15/18 98.8 16:00 Intake and Output 12/14/18 12/14/18 12/15/18 1515:00 23:00 07:00 IntakeIntake Total 222.5 ml 336.5 ml 372.5 ml OutputOutput Total 340 ml 210 ml 170 ml BalanceBalance -117.5 ml 126.5 ml 202.5 ml Exam HEENT: Head is normocephalic. Pupils react to light. + VENT. + TRACH NECK: Supple. HEART: Tachycardic. LUNGS: Show diminished breath sounds at the base. ABDOMEN: Soft, nontender to palpation. EXTREMITIES: Negative for clubbing, cyanosis. Trace edema. DERMATOLOGIC: No rashes. MUSCULOSKELETAL: No joint effusions. NEUROLOGIC: The patient is obtunded. Results Result Diagram: 12/15/18 0400 12/15/18 0400 Results 24hrs Laboratory Tests Test 12/15/18 00:43 12/15/18 04:00 12/15/18 04:55 12/15/18 05:00 Bedside Glucose 94 77 White Blood Count 3.4 #L Red Blood Count 2.64 L Hemoglobin 7.8 L Hematocrit 24.2 L Mean Corpuscular 91.7 Volume Mean Corpuscular 29.5 Hemoglobin Mean Corpuscular 32.2 Hemoglobin Concent Red Cell 19.8 H Distribution Width Platelet Count 42 #L Mean Platelet 12.2 H Volume Immature 0.300 Granulocytes % Neutrophils % Segmented 92 H Neutrophils % (Manual) Band Neutrophils % 6 H (Manual) Lymphocytes % Lymphocytes % 1 L (Manual) Monocytes % Eosinophils % Basophils % Basophils % 1 (Manual) Nucleated Red 0.0 Blood Cells % Immature 0.010 Granulocytes # Neutrophils # Neutrophils # 3.1 (Manual) Band Neutrophils # 0.2 Lymphocytes 0.0 L (Manual) Lymphocytes # Monocytes # Eosinophils # Basophils # Basophils # 0.0 (Manual) Nucleated Red Blood Cells # Toxic Granulation 1+ Platelet Estimate DECREASED Giant Platelets 1 H Platelet @See below Morphology Comment Poikilocytosis 3+ Anisocytosis 1+ Ovalocytes 2+ Schistocytes 1+ Erythrocyte 20 Sedimentation Rate Prothrombin Time 14.1 Prothrombin Time 1.1 Ratio INR International 1.08 Normalized Ratio Activated 25.[address] Time Thrombin Time 15.3 Fibrinogen 432.0 Plasma Fibrin Degradation Produc ts D-Dimer 2946.86 H D-Dimer Comment Sodium Level 138 Potassium Level 4.3 Chloride Level 105 Carbon Dioxide 32 H Level Anion Gap 1 L Blood Urea 18 Nitrogen Creatinine 0.23 L Est Glomerular Filtrat Rate mL/min Glucose Level 78 # Uric Acid 1.6 L Calcium Level 7.0 L Iron Level < 10 L Total Iron Binding 140 L Capacity Percent Iron Saturation Ferritin 365.0 H Lactate 584 Dehydrogenase Vitamin B12 Level > 1000 H Folate 18.6 Thyroid 0.337 L Stimulating Hormone (TSH) Absolute 0.031 Reticulocyte Count Percent 1.2 Reticulocyte Count Blood Gas Specimen Blood arterial Source Arterial Blood 12/15/2018 5:10:40 Date Drawn AM Arterial Blood pH 7.473 H (Temp corrected) Arterial Blood 41.7 pCO2 (Temp correct) Arterial Blood pO2 89.0 (Temp corrected) Arterial Blood 29.9 H HCO3 Arterial Blood 5.7 H Base Excess Arterial Blood 96.0 Oxygen Saturation Jordi Test N/A Arterial Blood Gas Right Brachial Puncture Site Arterial 0.3 Blood Carboxyhemog lobin Arterial Blood 0.5 Methemoglobin Blood Gas A-a O2 75.9 H Differential Oxyhemoglobin 95.2 Percent Blood Gas 37.0 Temperature Blood Gas 14.0 Respiration Rate Blood Gas Actual 15 Respiration Rate Blood Gas Modality VENT - AC FiO2 30.0 Blood Gas Tidal 450.0 Volume Blood Gas Low PEEP 5.0 Setting Blood Gas Notified MA Whom Blood Gas Notified 12/15/2018 5:21:16 Time AM Test 12/15/18 09:06 12/15/18 14:15 12/15/18 17:57 Bedside Glucose 89 83 85 Medications Medication Current Medications Ondansetron HCl (Zofran Inj) 4 mg Q6H PRN IV NAUSEA AND/OR VOMITING; Start 11/26/18 at 01:00 Albuterol (Ventolin Hfa) 4 puff Q4H RESP THERAPY INH Last administered on 12/15/18at 21:18; Admin Dose 4 PUFF; Start 11/26/18 at 01:00 Albuterol (Ventolin Hfa) 4 puff Q2H RESP THERAPY PRN INH SHORTNESS OF BREATH Last administered on 11/28/18at 01:53; Admin Dose 4 PUFF; Start 11/26/18 at 01:00 Acetaminophen (Tylenol Liquid) 650 mg Q6H PRN PO PAIN LEVEL 1-3 OR FEVER; Start 11/26/18 at 01:00 Morphine Sulfate (morphine) 2 mg Q4H PRN IV PAIN LEVEL 7-10; Start 11/26/18 at 01:00 Lorazepam (Ativan) 1 mg Q2H PRN IV ANXIETY Last administered on 12/11/18at 18:21; Admin Dose 1 MG; Start 11/26/18 at 01:00 Enoxaparin Sodium (Lovenox) 40 mg DAILY SC Last administered on 12/09/18at 09:30; Admin Dose 40 MG; Start 11/26/18 at 09:00; Status Hold Norepinephrine 250 ml @ 1.875 mls/ hr TITRATE IV Last administered on 12/06/18at 23:16; Admin Dose 9.375 MLS/HR; Start 11/26/18 at 09:00 Insulin Aspart (Novolog Insulin Pen) NOVOLOG *MILD* ALGORI... Q4 SC Last administered on 12/14/18at 12:46; Admin Dose 1 UNIT; Start 11/26/18 at 13:00 Phenylephrine HCl 40 mg/Dextrose 250 ml @ 37.5 mls/hr TITRATE IV Last administered on 11/30/18at 02:35; Admin Dose 3 MLS/HR; Start 11/26/18 at 11:00 Fentanyl 100 ml @ 2.5 mls/hr TITRATE IV Last administered on 12/14/18at 21:47; Admin Dose 5 MLS/HR; Start 11/26/18 at 13:00 IV Flush (NS 10 ml) 10 ml PRN PRN IV IV PROTOCOL; Start 11/26/18 at 15:00 Lansoprazole (Prevacid) 30 mg DAILY@06 GTB Last administered on 12/15/18at 04:57; Admin Dose 30 MG; Start 11/28/18 at 06:00 Alendronate Sodium (Fosamax) 70 mg Mo@AC BREAKFAST PO Last administered on 12/09/18at 05:34; Admin Dose 70 MG; Start 12/02/18 at 07:00 Furosemide (Lasix) 20 mg BID DIURETICS IV Last administered on 12/07/18at 05:39; Admin Dose 20 MG; Start 12/03/18 at 08:00; Status Hold Miscellaneous Information 1 ea NOTE XX ; Start 12/05/18 at 15:00 Glucose (Glutose) 15 gm Q15M PRN PO DECREASED GLUCOSE; Start 12/05/18 at 15:00 Glucose (Glutose) 22.5 gm Q15M PRN PO DECREASED GLUCOSE; Start 12/05/18 at 15:00 Dextrose (D50w Syringe) 25 ml Q15M PRN IV DECREASED GLUCOSE; Start 12/05/18 at 15:00 Dextrose (D50w Syringe) 50 ml Q15M PRN IV DECREASED GLUCOSE; Start 12/05/18 at 15:00 Glucagon (Glucagen) 1 mg Q15M PRN IM DECREASED GLUCOSE; Start 12/05/18 at 15:00 Glucose (Glutose) 15 gm Q15M PRN BUCCAL DECREASED GLUCOSE; Start 12/05/18 at 15:00 Calcitriol (Rocaltrol Liquid (Ped)) 0.25 mcg DAILY GTB Last administered on 12/15/18 09:07; Admin Dose 0.25 MCG; Start 12/07/18 at 09:00 Midodrine (Proamatine) 10 mg TID@,,17 GTB Last administered on 12/15/18 17:57; Admin Dose 10 MG; Start 12/07/18 at 09:00 Acetazolamide (Diamox) 500 mg DAILY IV Last administered on 12/09/18 09:27; Admin Dose 500 MG; Start 12/09/18 at 09:00; Status Hold Multivitamins (Multivitamin) 30 ml DAILY GTB Last administered on 12/15/18 09:07; Admin Dose 30 ML; Start 12/11/18 at 09:00 Ascorbic Acid (Vitamin C) 500 mg DAILY GTB Last administered on 12/15/18 09:08; Admin Dose 500 MG; Start 12/11/18 at 09:00 Folic Acid (Folic Acid) 1 mg DAILY GTB Last administered on 12/15/18 09:07; Admin Dose 1 MG; Start 12/11/18 at 09:00 Zinc Sulfate (Zinc Sulfate) 220 mg DAILY GTB Last administered on 12/15/18 09:08; Admin Dose 220 MG; Start 12/11/18 at 09:00 Methylprednisolone Sodium Succinate (Solu-Medrol) 40 mg Q12 IV Last administered on 12/15/18 09:08; Admin Dose 40 MG; Start 12/12/18 at 21:00 Insulin Glargine (Lantus) 16 units DAILY@1700 SC Last administered on 12/15/18 18:10; Admin Dose 16 UNITS; Start 12/14/18 at 17:00 Metoclopramide HCl (Reglan) 5 mg BID IV Last administered on 12/15/18 09:08; Admin Dose 5 MG; Start 12/14/18 at 21:00 JANNA ROCHE MD December 15, 2018 21:54
[2018-12-15] MEDS: DEXTROSE 50% 50 ML SYRINGE IV PRN (22:09)
[2018-12-16] VITALS (69 sets, daily range): BP systolic 36–113; BP diastolic 13–82; PULSE 0–131; RESP 0–33
[2018-12-16] MEDS: INSULIN ASPART [NOVOLOG] 3 ML PEN SC SCH ×4 (01:00→13:00)
[2018-12-16] MEDS: DEXTROSE 50% 50 ML SYRINGE IV PRN ×2 (01:03→13:14)
[2018-12-16] MEDS: ALBUTEROL HFA 8 GM INHALER INH SCH ×4 (01:21→13:00)
[2018-12-16] MEDS: NORepinephrine 8MG/250 ML (PMX 250 ML IV SCH (01:49)
[2018-12-16] MEDS: LANSOPRAZOLE 30 MG CAP GTB SCH (05:28)
[2018-12-16] MEDS ORDERED: DEXTROSE 5%-0.9% NACL 1,000 ML IV SCH (07:00)
[2018-12-16] MEDS: BALSAM PERU/CASTOR OIL 60 GM TUBE TOP SCH (08:25)
[2018-12-16] MEDS ORDERED: SOD CHLORIDE 0.9% 1,000 ML IV ONE ×2 (08:30→14:00)
--- NOTE | 2018-12-16 08:32 | PN ---
DATE: 12/16/2018 SUBJECTIVE: The patient remains critically ill. The patient was placed on pressor support overnight . The patient also noted to be hypoglycemic overnight. No other acute events noted. No hemoptysis, hematemesis, or hematochezia. OBJECTIVE: VITAL SIGNS: Blood pressure is 93/46, respirations 23, pulse 120, temperature 99.1. HEENT: Head is normocephalic. NECK: Supple. HEART: Regular rate. LUNGS: Show diminished breath sounds at the base. ABDOMEN: Soft, nontender to palpation without rebound or guarding. EXTREMITIES: Negative for clubbing, cyanosis. Positive edema. DERMATOLOGIC: No rashes. MUSCULOSKELETAL: No joint effusion. NEUROLOGIC: No change in exam. MEDICATIONS: Reviewed. LABORATORY DATA: Reviewed. IMAGING STUDIES: Reviewed. MICROBIOLOGY: Cultures have been reviewed. ASSESSMENT AND PLAN: 1. Sepsis secondary to pneumonia, bacteremia and fungal urinary tract infection. The patient is cur rently on pressor support. Continue antimicrobial antifungal therapy. Follow up with Infectious Dis ease. 2. Ventilator-dependent respiratory failure. Vent settings and ABG was reviewed. Continue to monit or. 3. Dysphagia status post PEG. Continue tube feeding. 4. Volume overload. We will hold diuretic therapy in setting of shock. 5. Shock, etiology is felt to be secondary to sepsis, questionable intravascular volume depletion. We will continue treatment plan as stated above. Continue pressor support and antibiotic therapy. H olding diuretic therapy, volume expansion and monitor closely. Consider checking a cortisol level. 6. Pancytopenia. The patient is leukopenic, thrombocytopenic. Etiology is unclear, possible bone m arrow suppression. Workup is ongoing. Follow up with hematology for recommendations. 7. Thrombocytopenia as stated above. Etiology is unclear, possibly due to sepsis and medications. HIT antibody was negative. Continue to monitor. Follow up with hematology. Transfuse as needed. 8. Hypernatremia, resolved. Continue to monitor, continue free water flushes. 9. Metabolic alkalemia. Continue to monitor. Improved. 10. Nonoliguric acute kidney injury. Etiology is secondary to hemodynamics. Renal function is impr destin. Continue to monitor. 11. History of arrhythmia, status post pacemaker. 12. Diabetes. The patient had noted episodes of hypoglycemia. We will hold long-acting Lantus. e patient will be placed on dextrose drip, monitor glucose levels closely. 13. History of ovarian cancer stage IV, status post chemotherapy and debulking surgery. 14. Hypothyroidism. 15. History of arthritis. 16. Gastrointestinal and deep vein thrombosis prophylaxis. Please note, I spent over 30 minutes of critical care time with this patient. Dictated By: SHAUN CHRISTENSEN DO NR/NTS Conf#: [id number] DID#: [id number] CC: STEVIE REN MD; JESS SAUCEDO MD;*EndCC*
[2018-12-16] MEDS: METHYLPREDNISOLONE 40 MG INJ IV SCH (08:49)
[2018-12-16] MEDS: METOCLOPRAMIDE 10 MG INJ IV SCH (08:49)
[2018-12-16] MEDS: ZINC SULFATE 220 MG CAP GTB SCH (08:49)
[2018-12-16] MEDS: ASCORBIC ACID 500 MG TAB GTB SCH (08:49)
[2018-12-16] MEDS: FOLIC ACID 1 MG TAB GTB SCH (08:50)
[2018-12-16] MEDS: MULTIVITAMINS 30 ML CUP GTB SCH (08:50)
[2018-12-16] MEDS: CALCITRIOL (1 MCG/ML PO SYG) GTB SCH (08:50)
[2018-12-16] MEDS: ALENDRONATE 70 MG TAB PO SCH (08:53)
[2018-12-16] MEDS: MIDODRINE 5 MG TAB GTB SCH ×2 (08:53→14:03)
[2018-12-16] MEDS: FENTAnyl (DRIP) 1000 mcg/100mL 100 ML IV SCH ×2 (10:12→14:43)
[2018-12-16] MEDS: PHENYLephrine 40 MG in DEXTROSE 5% 246 ML IV SCH ×2 (10:38→15:29)
--- NOTE | 2018-12-16 11:30 | CONS ---
Consult Date/Type/Reason Admit Date/Time Nov 25, 2018 at 23:59 Initial Consult Date 11/26/18 Type of Consult Pulmonary Requesting Provider: SHAUN CHRISTENSEN DO Date/Time of Note DATE: 12/16/18 TIME: 11:27 Subjective Febrile with new infiltrate in the right lung. Deterioration in overall condition now requiring vasopressor support. Also tachycardic this morning. Objective Vital Signs Date Temp Pulse Resp B/P (MAP) Pulse Ox O2 O2 Flow FiO2 Time Delivery Rate 12/16/18 131 30 86/47 (60) [place] 10:00 l Ventilato r 12/16/18 88 09:45 12/16/18 100.0 08:15 12/16/18 45 07:50 Intake and Output 12/15/18 12/15/18 12/16/18 1515:00 23:00 07:00 IntakeIntake Total 348.5 ml 270 ml 436.875 ml OutputOutput Total 265 ml 130 ml 185 ml BalanceBalance 83.5 ml 140 ml 251.875 ml Exam GENERAL: Frail elderly lady on mechanical ventilation via tracheostomy VITAL SIGNS: per chart NECK: Supple. No JVD or lymphadenopathy. CARDIAC EXAM: S1, S2. No added sounds or murmurs. CHEST: Diminished air entry bilaterally ABDOMEN: Soft, nontender. No guarding or rebound. EXTREMITIES: No cyanosis, clubbing edema +1 NEUROLOGIC: Generalized weakness. Vent Setting Ventilator Support Mode: AC, VC plus Fraction of Inspired Oxygen pe: 45 Positive End Expiratory Pressu: 5.0 Results/Medications Result Diagram: 12/16/18 0436 12/16/18 0436 Results 24 hrs Laboratory Tests Test 12/15/18 14:15 12/15/18 17:57 12/15/18 22:02 12/15/18 22:22 Bedside Glucose 83 85 52 L 86 Test 12/16/18 01:00 12/16/18 01:24 12/16/18 04:36 12/16/18 05:22 Bedside Glucose 56 L 94 46 *L White Blood Count 0.6 #L Red Blood Count 2.57 L Hemoglobin 7.5 L Hematocrit 24.0 L Mean Corpuscular Volume 93.4 Mean Corpuscular 29.2 Hemoglobin Mean Corpuscular 31.3 L Hemoglobin Concent Red Cell Distribution 20.0 H Width Platelet Count 22 #*L Mean Platelet Volume Immature Granulocytes % 0.000 L Neutrophils % Lymphocytes % Monocytes % Eosinophils % Basophils % Nucleated Red Blood 5.1 H Cells % Immature Granulocytes # 0.000 Neutrophils # Lymphocytes # Monocytes # Eosinophils # Basophils # Nucleated Red Blood Cells # Sodium Level 139 Potassium Level 3.9 Chloride Level 107 Carbon Dioxide Level 31 Anion Gap 1 L Blood Urea Nitrogen 21 H Creatinine 0.25 L Est Glomerular Filtrat Rate mL/min Glucose Level 46 #*L Calcium Level 6.6 L Test 12/16/18 05:45 12/16/18 08:31 12/16/18 09:55 Bedside Glucose 119 70 Lactic Acid Level 3.9 *H Medications Current Medications Ondansetron HCl (Zofran Inj) 4 mg Q6H PRN IV NAUSEA AND/OR VOMITING; Start 11/26/18 at 01:00 Albuterol (Ventolin Hfa) 4 puff Q4H RESP THERAPY INH Last administered on 12/16/18 08:42; Admin Dose 4 PUFF; Start 11/26/18 at 01:00 Albuterol (Ventolin Hfa) 4 puff Q2H RESP THERAPY PRN INH SHORTNESS OF BREATH Last administered on 11/28/18 01:53; Admin Dose 4 PUFF; Start 11/26/18 at 01:00 Acetaminophen (Tylenol Liquid) 650 mg Q6H PRN PO PAIN LEVEL 1-3 OR FEVER; Start 11/26/18 at 01:00 Morphine Sulfate (morphine) 2 mg Q4H PRN IV PAIN LEVEL 7-10 Last administered on 12/15/18 21:58; Admin Dose 2 MG; Start 11/26/18 at 01:00 Lorazepam (Ativan) 1 mg Q2H PRN IV ANXIETY Last administered on 12/11/18 18:21; Admin Dose 1 MG; Start 11/26/18 at 01:00 Norepinephrine 250 ml @ 1.875 mls/ hr TITRATE IV Last administered on 12/16/18 01:49; Admin Dose 3.75 MLS/HR; Start 11/26/18 at 09:00 Insulin Aspart (Novolog Insulin Pen) NOVOLOG *MILD* ALGORI... Q4 SC Last administered on 12/14/18 12:46; Admin Dose 1 UNIT; Start 11/26/18 at 13:00 Phenylephrine HCl 40 mg/Dextrose 250 ml @ 37.5 mls/hr TITRATE IV Last administered on 12/16/18at 10:38; Admin Dose 1.88 MLS/HR; Start 11/26/18 at 11:00 Fentanyl 100 ml @ 2.5 mls/hr TITRATE IV Last administered on 12/16/18at 10:12; Admin Dose 5 MLS/HR; Start 11/26/18 at 13:00 IV Flush (NS 10 ml) 10 ml PRN PRN IV IV PROTOCOL; Start 11/26/18 at 15:00 Lansoprazole (Prevacid) 30 mg DAILY@06 GTB Last administered on 12/16/18 05:28; Admin Dose 30 MG; Start 11/28/18 at 06:00 Alendronate Sodium (Fosamax) 70 mg Mo@AC BREAKFAST PO Last administered on 12/16/18 08:53; Admin Dose 70 MG; Start 12/02/18 at 07:00 Furosemide (Lasix) 20 mg BID DIURETICS IV Last administered on 12/07/18at 05:39; Admin Dose 20 MG; Start 12/03/18 at 08:00; Status Hold Miscellaneous Information 1 ea NOTE XX ; Start 12/05/18 at 15:00 Glucose (Glutose) 15 gm Q15M PRN PO DECREASED GLUCOSE; Start 12/05/18 at 15:00 Glucose (Glutose) 22.5 gm Q15M PRN PO DECREASED GLUCOSE; Start 12/05/18 at 1 5:00 Dextrose (D50w Syringe) 25 ml Q15M PRN IV DECREASED GLUCOSE Last administered on 12/16/18 01:03; Admin Dose 25 ML; Start 12/05/18 at 15:00 Dextrose (D50w Syringe) 50 ml Q15M PRN IV DECREASED GLUCOSE Last administered on 12/16/18 05:26; Admin Dose 50 ML; Start 12/05/18 at 15:00 Glucagon (Glucagen) 1 mg Q15M PRN IM DECREASED GLUCOSE; Start 12/05/18 at 15:00 Glucose (Glutose) 15 gm Q15M PRN BUCCAL DECREASED GLUCOSE; Start 12/05/18 at 15:00 Calcitriol (Rocaltrol Liquid (Ped)) 0.25 mcg DAILY GTB Last administered on 12/16/18at 08:50; Admin Dose 0.25 MCG; Start 12/07/18 at 09:00 Midodrine (Proamatine) 10 mg TID@,,17 GTB Last administered on 12/16/18 08:53; Admin Dose 10 MG; Start 12/07/18 at 09:00 Multivitamins (Multivitamin) 30 ml DAILY GTB Last administered on 12/16/18 08:50; Admin Dose 30 ML; Start 12/11/18 at 09:00 Ascorbic Acid (Vitamin C) 500 mg DAILY GTB Last administered on 12/16/18 08:49; Admin Dose 500 MG; Start 12/11/18 at 09:00 Folic Acid (Folic Acid) 1 mg DAILY GTB Last administered on 12/16/18 08:50; Admin Dose 1 MG; Start 12/11/18 at 09:00 Zinc Sulfate (Zinc Sulfate) 220 mg DAILY GTB Last administered on 12/16/18 08:49; Admin Dose 220 MG; Start 12/11/18 at 09:00 Methylprednisolone Sodium Succinate (Solu-Medrol) 40 mg Q12 IV Last administered on 12/16/18 08:49; Admin Dose 40 MG; Start 12/12/18 at 21:00 Insulin Glargine (Lantus) 16 units DAILY@1700 SC Last administered on 12/15/18 18:10; Admin Dose 16 UNITS; Start 12/14/18 at 17:00; Status Hold Metoclopramide HCl (Reglan) 5 mg BID IV Last administered on 12/16/18 08:49; Admin Dose 5 MG; Start 12/14/18 at 21:00 Dextrose/Sodium Chloride 1,000 ml @ 50 mls/hr Q20H IV Last administered on 12/16/18 06:47; Admin Dose 50 MLS/HR; Start 12/16/18 at 07:00 Assessment/Plan Hospital Course (Demo Recall) IMP: 1. Septic shock 2. Hypercapnic Resp Failure/Failure to wean--worsening respiratory distress placed on AC mechanical ventilation new right lower lobe infiltrate. Findings consistent with ventilator associated pneumonia. 3. s/p NSTEMI 4. Anemia 5. HypoK+ 6. Hypothyroidism 7. Severe cachexia 8. h/o metastatic ovarian cancer 9. Thrombocytopenia RECS: 1. Continue AC mechanical ventilation 2. Optimize nutritional status 3. Follow H/H; transfuse if Hgb < 7 4. Minimize sedation 5. CPT/suctioning 6. Broad central antibiotics again blood and sputum cultures. Status post fluid challenge. Lactic acidosis noted. Continue vasopressors titrate to keep map greater than 65. 35 min cc time Overall prognosis very poor. JESS SAUCEDO MD, [facility] December 16, 2018 11:30
[2018-12-16] MEDS ORDERED: VANCOMYCIN IV PER PHARMACY XX SCH (12:00)
[2018-12-16] MEDS ORDERED: VANCOMYCIN 1 GM 250 ML IVPB SCH (14:00)
[2018-12-16] MEDS ORDERED: PIPER-TAZO 3.375 GM IV (PMX) 100 ML IVPB SCH (14:00)
[2018-12-16] MEDS ORDERED: SOD CHLORIDE 0.9% 250 ML IV* ONE (14:12)
[2018-12-16] MEDS ORDERED: DOPamine-D5W 1.6 MG/ML 0 ML ONE (14:28)
[2018-12-16] MEDS ORDERED: DOPamine-D5W 1.6 MG/ML 250 ML IV SCH (14:30)
--- NOTE | 2018-12-16 14:31 | CONS ---
Assessment/Plan Assessment/Plan Hospital Course (Demo Recall) Patient decompensated overnight and this morning became progressively hypoxemic tachycardic and hypotensive currently on pressors obtunded and not doing well. Family at bedside. Temperature at 11:00 was 102.9. WBC 0.2 H&H 6.6 and 21.9 platelet count 4 BUN 22 creatinine 0.34 Antimicrobials: Vanco Zosyn Chest x-ray this morning revealed interval increase in patchy infiltrates throughout the right lung with small right pleural effusion. Please see full report in the chart Indwelling: Trach, PEG, Das, right upper extremity PICC line Physical examination: This is a chronically ill-appearing wasted elderly woman who is intubated sedated in no distress. Head atraumatic normocephalic neck is supple chest rise symmetrical breath sounds diminished bases heart: S1-S2 abdomen soft bowel sounds present extremities without cyanosis Assessment: 1. Severe sepsis with shock 2. Acute on chronic hypoxemic respiratory failure 3. Recurrent pneumonia 4. Tachycardia 5. Coronary artery disease with a history of mitral valve replacement 6. Acute anemia, pancytopenia, thrombocytopenia 7. History of ovarian cancer Plan: Patient is doing poorly, she was recultured earlier, she is on broad- spectrum antibiotics, we will add antifungal coverage, prognosis guarded DW family Consultation Date/Type/Reason Admit Date/Time Nov 25, 2018 at 23:59 Initial Consult Date 11/26/18 Type of Consult id Requesting Provider: SHAUN CHRISTENSEN DO Date/Time of Note DATE: 12/16/18 TIME: 14:29 Exam/Review of Systems Exam Vitals Vital Signs Date Temp Pulse Resp B/P (MAP) Pulse Ox O2 O2 Flow FiO2 Time Delivery Rate 12/16/18 117 12:00 12/16/18 99.6 31 97/64 (75) Mechanical 12:00 Ventilator 12/16/18 76 11:30 12/16/18 100 11:20 Intake and Output 12/15/18 12/15/18 12/16/18 1515:00 23:00 07:00 IntakeIntake Total 348.5 ml 270 ml 436.875 ml OutputOutput Total 265 ml 130 ml 185 ml BalanceBalance 83.5 ml 140 ml 251.875 ml Results Result Diagram: 12/16/18 1312 12/16/18 1312 Results 24hrs Laboratory Tests Test 12/15/18 17:57 5/5/19 22:02 12/15/18 22:22 12/16/18 01:00 Bedside Glucose 85 52 L 86 56 L Test 12/16/18 01:24 12/16/18 04:36 12/16/18 05:22 12/16/18 05:45 Bedside Glucose 94 46 *L 119 White Blood Count 0.6 #L Red Blood Count 2.57 L Hemoglobin 7.5 L Hematocrit 24.0 L Mean Corpuscular Volume 93.4 Mean Corpuscular 29.2 Hemoglobin Mean Corpuscular 31.3 L Hemoglobin Concent Red Cell Distribution 20.0 H Width Platelet Count 22 #*L Mean Platelet Volume Immature Granulocytes % 0.000 L Neutrophils % Lymphocytes % Monocytes % Eosinophils % Basophils % Nucleated Red Blood 5.1 H Cells % Immature Granulocytes # 0.000 Neutrophils # Lymphocytes # Monocytes # Eosinophils # Basophils # Nucleated Red Blood Cells # Sodium Level 139 Potassium Level 3.9 Chloride Level 107 Carbon Dioxide Level 31 Anion Gap 1 L Blood Urea Nitrogen 21 H Creatinine 0.25 L Est Glomerular Filtrat Rate mL/min Glucose Level 46 #*L Calcium Level 6.6 L Test 12/16/18 08:31 12/16/18 09:55 12/16/18 13:09 12/16/18 13:12 Bedside Glucose 70 56 L Lactic Acid Level 3.9 *H 4.7 *H White Blood Count 0.2 #L Red Blood Count 2.22 L Hemoglobin 6.6 *L Hematocrit 21.9 L Mean Corpuscular Volume 98.6 Mean Corpuscular 29.7 Hemoglobin Mean Corpuscular 30.1 L Hemoglobin Concent Red Cell Distribution 20.1 H Width Platelet Count 4 #*L Mean Platelet Volume Immature Granulocytes % 0.000 L Neutrophils % Lymphocytes % Monocytes % Eosinophils % Basophils % Nucleated Red Blood 19.0 H Cells % Immature Granulocytes # 0.000 Neutrophils # Lymphocytes # Monocytes # Eosinophils # Basophils # Nucleated Red Blood Cells # Sodium Level 124 #L Potassium Level 3.8 Chloride Level 97 # Carbon Dioxide Level 19 #L Anion Gap 8 Blood Urea Nitrogen 22 H Creatinine 0.34 L Est Glomerular Filtrat Rate mL/min Glucose Level 596 #*H Calcium Level 5.4 *L Phosphorus Level 2.2 L Magnesium Level 1.9 Total Bilirubin 0.2 Direct Bilirubin 0.00 Indirect Bilirubin 0.2 Aspartate Amino 45 Transf (AST/SGOT) Alanine 30 Aminotransferase (ALT/SG PT) Alkaline Phosphatase 43 Total Protein 2.5 L Albumin 1.2 L Globulin 1.30 Albumin/Globulin Ratio 0.92 Test 12/16/18 13:39 12/16/18 14:01 Bedside Glucose 128 142 Medications Medication Current Medications Ondansetron HCl (Zofran Inj) 4 mg Q6H PRN IV NAUSEA AND/OR VOMITING; Start 11/26/18 at 01:00 Albuterol (Ventolin Hfa) 4 puff Q4H RESP THERAPY INH Last administered on 12/16 08:42; Admin Dose 4 PUFF; Start 11/26/18 at 01:00 Albuterol (Ventolin Hfa) 4 puff Q2H RESP THERAPY PRN INH SHORTNESS OF BREATH Last administered on 11/28/18 01:53; Admin Dose 4 PUFF; Start 11/26/18 at 01:00 Acetaminophen (Tylenol Liquid) 650 mg Q6H PRN PO PAIN LEVEL 1-3 OR FEVER; Start 11/26/18 at 01:00 Morphine Sulfate (morphine) 2 mg Q4H PRN IV PAIN LEVEL 7-10 Last administered on 12/15/18 21:58; Admin Dose 2 MG; Start 11/26/18 at 01:00 Lorazepam (Ativan) 1 mg Q2H PRN IV ANXIETY Last administered on 12/11/18 18:21; Admin Dose 1 MG; Start 11/26/18 at 01:00 Norepinephrine 250 ml @ 1.875 mls/ hr TITRATE IV Last administered on 12/16/18 01:49; Admin Dose 3.75 MLS/HR; Start 11/26/18 at 09:00 Insulin Aspart (Novolog Insulin Pen) NOVOLOG *MILD* ALGORI... Q4 SC Last administered on 12/14/18 12:46; Admin Dose 1 UNIT; Start 11/26/18 at 13:00 Phenylephrine HCl 40 mg/Dextrose 250 ml @ 37.5 mls/hr TITRATE IV Last administered on 12/16/18 10:38; Admin Dose 1.88 MLS/HR; Start 11/26/18 at 11:00 Fentanyl 100 ml @ 2.5 mls/hr TITRATE IV Last administered on 12/16/18 10:12; Admin Dose 5 MLS/HR; Start 11/26/18 at 13:00 IV Flush (NS 10 ml) 10 ml PRN PRN IV IV PROTOCOL; Start 11/26/18 at 15:00 Lansoprazole (Prevacid) 30 mg DAILY@06 GTB Last administered on 12/16/18 05:28; Admin Dose 30 MG; Start 11/28/18 at 06:00 Alendronate Sodium (Fosamax) 70 mg Mo@AC BREAKFAST PO Last administered on 12/16/18 08:53; Admin Dose 70 MG; Start 12/02/18 at 07:00 Furosemide (Lasix) 20 mg BID DIURETICS IV Last administered on 12/07/18 05:39; Admin Dose 20 MG; Start 12/03/18 at 08:00; Status Hold Miscellaneous Information 1 ea NOTE XX ; Start 12/05/18 at 15:00 Glucose (Glutose) 15 gm Q15M PRN PO DECREASED GLUCOSE; Start 12/05/18 at 15:00 Glucose (Glutose) 22.5 gm Q15M PRN PO DECREASED GLUCOSE; Start 12/05/18 at 15:00 Dextrose (D50w Syringe) 25 ml Q15M PRN IV DECREASED GLUCOSE Last administered on 12/16/18 13:14; Admin Dose 25 ML; Start 12/05/18 at 15:00 Dextrose (D50w Syringe) 50 ml Q15M PRN IV DECREASED GLUCOSE Last administered on 12/16/18 05:26; Admin Dose 50 ML; Start 12/05/18 at 15:00 Glucagon (Glucagen) 1 mg Q15M PRN IM DECREASED GLUCOSE; Start 12/05/18 at 15:00 Glucose (Glutose) 15 gm Q15M PRN BUCCAL DECREASED GLUCOSE; Start 12/05/18 at 15:00 Calcitriol (Rocaltrol Liquid (Ped)) 0.25 mcg DAILY GTB Last administered on 12/16/18 08:50; Admin Dose 0.25 MCG; Start 12/07/18 at 09:00 Midodrine (Proamatine) 10 mg TID@,,17 GTB Last administered on 12/16/18 14:03; Admin Dose 10 MG; Start 12/07/18 at 09:00 Multivitamins (Multivitamin) 30 ml DAILY GTB Last administered on 12/16/18 08:50; Admin Dose 30 ML; Start 12/11/18 at 09:00 Ascorbic Acid (Vitamin C) 500 mg DAILY GTB Last administered on 12/16/18 08:49; Admin Dose 500 MG; Start 12/11/18 at 09:00 Folic Acid (Folic Acid) 1 mg DAILY GTB Last administered on 12/16/18 08:50; Admin Dose 1 MG; Start 12/11/18 at 09:00 Zinc Sulfate (Zinc Sulfate) 220 mg DAILY GTB Last administered on 12/16/18 08:49; Admin Dose 220 MG; Start 12/11/18 at 09:00 Methylprednisolone Sodium Succinate (Solu-Medrol) 40 mg Q12 IV Last administered on 12/16/18 08:49; Admin Dose 40 MG; Start 12/12/18 at 21:00 Insulin Glargine (Lantus) 16 units DAILY@1700 SC Last administered on 12/15/18 18:10; Admin Dose 16 UNITS; Start 12/14/18 at 17:00; Status Hold Metoclopramide HCl (Reglan) 5 mg BID IV Last administered on 12/16/18 08:49; Admin Dose 5 MG; Start 12/14/18 at 21:00 Dextrose/Sodium Chloride 1,000 ml @ 50 mls/hr Q20H IV Last administered on 12/16/18 06:47; Admin Dose 50 MLS/HR; Start 12/16/18 at 07:00 Vancomycin HCl (Vanco Iv Per Pharmacy) VANCOMYCIN PER PHARMACY PER PROTOCOL XX ; Start 12/16/18 at 12:00 Piperacillin Sod/ Tazobactam Sod 100 ml @ 200 mls/hr Q8 IVPB Last administered on 12/16/18 14:13; Admin Dose 200 MLS/HR; Start 12/16/18 at 14:00 Vancomycin HCl 250 ml @ 125 mls/hr NOW IVPB ; Start 12/16/18 at 14:00; Stop 12/16/18 at 18:00 Vancomycin/Sodium Chloride 250 ml @ 125 mls/hr Q12H IVPB ; Start 12/17/18 at 05:00 Sodium Chloride 1,000 ml @ 1,000 mls/hr Q1H ONCE IV Last administered on 12/16/18 13:56; Admin Dose 1,000 MLS/HR; Start 12/16/18 at 14:00; Stop 12/16/18 at 14:59 Sodium Chloride 250 ml @ 0 mls/hr Q0M ONCE IV* ; Start 12/16/18 at 14:12; Stop 12/16/18 at 14:13; Status UNV JODY BOYD NP December 16, 2018 14:31
--- NOTE | 2018-12-16 14:34 | CONS ---
Consult Date/Type/Reason Admit Date/Time Nov 25, 2018 at 23:59 Initial Consult Date 11/26/18 Type of Consultation: cv Reason for Consultation Interventional cardiology follow-up progress note Subjective: Case discussed with staff and telemetry was reviewed. Discussed with multiple family members including children sons and daughters at the bedside. Patient has been more hypotensive and in shock and currently on 2 different pressors remains sinus tachycardia ventricular demand pacing. She has been severely hypoxemic is not 100% oxygen. Labs that show severe thrombocytopenia and anemia. Discussed with multiple family members including sons and daughters who are all at the bedside in detail. Family does not want to add any more pressors of transfusion. I want the patient to be comfortable only. Patient course has been changed to DNR Objective: General: Elderly female cachectic looking appears to be older than stated age status post trach on the vent HEENT: NC/AT. pupils are equal. round. NECKs/p trach . no stridor. CV: RRR. systolic murmur; no gallop or rubs. PULM: no wheezing + rhonchi more on the right GI: SOFT, NT, ND, no rebound or guarding Extremity: 1+ B/L ANKLE edema. no clubbing. neuro: lethargic Psych: calm rectal: deferred : normal Chest x-ray 12/06/18 shows Overall, no significant change in appearance of multifocal bilateral pulmonary opacities and small pleural effusions CXR 4.27 1. Unchanged airspace opacities of the bilateral, right greater than left perihilar regions and lower lobes. 2. Stable small to moderate right and small left-sided pleural effusions. Echocardiogram was personally reviewed which showed normal LV size ejection fraction of about 45-50% EKG was personally reviewed which shows ventricular paced rhythm CT Chest 11/27: 1. Findings compatible with bilateral bronchiolitis and bronchopneumonia, greater on the right, significantly increased when compared to the prior CT. Mild bilateral pleural effusions, grossly stable. 2. Stable mild cardiomegaly. Coronary arterial and aortic atherosclerotic calcifications. 3. Lines and tubes in place, as above. 4. No evidence of mass or lymphadenopathy Requesting Provider: SHAUN CHRISTENSEN DO Date/Time of Note DATE: 12/16/18 TIME: 14:31 Objective Vitals Vital Signs Date Temp Pulse Resp B/P (MAP) Pulse Ox O2 O2 Flow FiO2 Time Delivery Rate 12/16/18 117 12:00 12/16/18 99.6 31 97/64 (75) Mechanical 12:00 Ventilator 12/16/18 76 11:30 12/16/18 100 11:20 Intake and Output 12/15/18 12/15/18 12/16/18 1515:00 23:00 07:00 IntakeIntake Total 348.5 ml 270 ml 436.875 ml OutputOutput Total 265 ml 130 ml 185 ml BalanceBalance 83.5 ml 140 ml 251.875 ml Results/Medications Result Diagram: 12/16/18 1312 12/16/18 1312 Results 24 hrs Laboratory Tests Test 12/15/18 17:57 12/15/18 22:02 12/15/18 22:22 12/16/18 01:00 Bedside Glucose 85 52 L 86 56 L Test 12/16/18 01:24 12/16/18 04:36 12/16/18 05:22 12/16/18 05:45 Bedside Glucose 94 46 *L 119 White Blood Count 0.6 #L Red Blood Count 2.57 L Hemoglobin 7.5 L Hematocrit 24.0 L Mean Corpuscular Volume 93.4 Mean Corpuscular 29.2 Hemoglobin Mean Corpuscular 31.3 L Hemoglobin Concent Red Cell Distribution 20.0 H Width Platelet Count 22 #*L Mean Platelet Volume Immature Granulocytes % 0.000 L Neutrophils % Lymphocytes % Monocytes % Eosinophils % Basophils % Nucleated Red Blood 5.1 H Cells % Immature Granulocytes # 0.000 Neutrophils # Lymphocytes # Monocytes # Eosinophils # Basophils # Nucleated Red Blood Cells # Sodium Level 139 Potassium Level 3.9 Chloride Level 107 Carbon Dioxide Level 31 Anion Gap 1 L Blood Urea Nitrogen 21 H Creatinine 0.25 L Est Glomerular Filtrat Rate mL/min Glucose Level 46 #*L Calcium Level 6.6 L Test 12/16/18 08:31 12/16/18 09:55 12/16/18 13:09 12/16/18 13:12 Bedside Glucose 70 56 L Lactic Acid Level 3.9 *H 4.7 *H White Blood Count 0.2 #L Red Blood Count 2.22 L Hemoglobin 6.6 *L Hematocrit 21.9 L Mean Corpuscular Volume 98.6 Mean Corpuscular 29.7 Hemoglobin Mean Corpuscular 30.1 L Hemoglobin Concent Red Cell Distribution 20.1 H Width Platelet Count 4 #*L Mean Platelet Volume Immature Granulocytes % 0.000 L Neutrophils % Lymphocytes % Monocytes % Eosinophils % Basophils % Nucleated Red Blood 19.0 H Cells % Immature Granulocytes # 0.000 Neutrophils # Lymphocytes # Monocytes # Eosinophils # Basophils # Nucleated Red Blood Cells # Sodium Level 124 #L Potassium Level 3.8 Chloride Level 97 # Carbon Dioxide Level 19 #L Anion Gap 8 Blood Urea Nitrogen 22 H Creatinine 0.34 L Est Glomerular Filtrat Rate mL/min Glucose Level 596 #*H Calcium Level 5.4 *L Phosphorus Level 2.2 L Magnesium Level 1.9 Total Bilirubin 0.2 Direct Bilirubin 0.00 Indirect Bilirubin 0.2 Aspartate Amino 45 Transf (AST/SGOT) Alanine 30 Aminotransferase (ALT/SG PT) Alkaline Phosphatase 43 Total Protein 2.5 L Albumin 1.2 L Globulin 1.30 Albumin/Globulin Ratio 0.92 Test 12/16/18 13:39 12/16/18 14:01 Bedside Glucose 128 142 Home Meds Reported Medications Acetaminophen* (Tylenol*) 325 Mg Tablet, 650 MG PO Q6H PRN for PAIN AND OR ELEVATED TEMP, TAB 11/30/18 Magnesium Oxide* (Mag-Oxide*) 400 Mg Tablet, 400 MG PO BID, TAB 11/30/18 Levothyroxine Sodium* (Synthroid*) 50 Mcg Tablet, 50 MCG PO BEFORE BREAKFAST, #30 TAB 11/30/18 Potassium Chloride* (Potassium Chloride*) 8 Meq Capsule.er, 10 MEQ PO BID, CAP 11/30/18 Furosemide* (Furosemide*) 40 Mg Tablet, 40 MG PO DAILY, TAB 11/30/18 Cyanocobalamin (B12 Health Booster) 1,000 Mcg/15 Ml Oral.susp, 5000 MCG PO DAILY 11/30/18 Atorvastatin Calcium (Atorvastatin Calcium) 10 Mg Tablet, 10 MG PO QHS, #30 TAB 11/30/18 Aspirin* (Devon Aspirin* Chew) 81 Mg Tab.chew, 81 MG PO BID, TAB.CHEW 11/30/18 Acetazolamide* (Acetazolamide*) 250 Mg Tablet, 250 MG PO DAILY, #60 TAB 11/30/18 Alendronate Sodium* (Fosamax*) 70 Mg Tablet, 70 MG PO Q7D, #4 TAB 11/30/18 Medications Current Medications Ondansetron HCl (Zofran Inj) 4 mg Q6H PRN IV NAUSEA AND/OR VOMITING; Start 11/26/18 at 01:00 Albuterol (Ventolin Hfa) 4 puff Q4H RESP THERAPY INH Last administered on 12/16/18 08:42; Admin Dose 4 PUFF; Start 11/26/18 at 01:00 Albuterol (Ventolin Hfa) 4 puff Q2H RESP THERAPY PRN INH SHORTNESS OF BREATH Last administered on 11/28/18 01:53; Admin Dose 4 PUFF; Start 11/26/18 at 01:00 Acetaminophen (Tylenol Liquid) 650 mg Q6H PRN PO PAIN LEVEL 1-3 OR FEVER; Start 11/26/18 at 01:00 Morphine Sulfate (morphine) 2 mg Q4H PRN IV PAIN LEVEL 7-10 Last administered on 12/15/18 21:58; Admin Dose 2 MG; Start 11/26/18 at 01:00 Lorazepam (Ativan) 1 mg Q2H PRN IV ANXIETY Last administered on 12/11/18 18:21; Admin Dose 1 MG; Start 11/26/18 at 01:00 Norepinephrine 250 ml @ 1.875 mls/ hr TITRATE IV Last administered on 12/16/18 01:49; Admin Dose 3.75 MLS/HR; Start 11/26/18 at 09:00 Insulin Aspart (Novolog Insulin Pen) NOVOLOG *MILD* ALGORI... Q4 SC Last administered on 12/14/18 12:46; Admin Dose 1 UNIT; Start 11/26/18 at 13:00 Phenylephrine HCl 40 mg/Dextrose 250 ml @ 37.5 mls/hr TITRATE IV Last administered on 12/16/18 10:38; Admin Dose 1.88 MLS/HR; Start 11/26/18 at 11:00 Fentanyl 100 ml @ 2.5 mls/hr TITRATE IV Last administered on 12/16/18 10:12; Admin Dose 5 MLS/HR; Start 11/26/18 at 13:00 IV Flush (NS 10 ml) 10 ml PRN PRN IV IV PROTOCOL; Start 11/26/18 at 15:00 Lansoprazole (Prevacid) 30 mg DAILY@06 GTB Last administered on 12/16/18 05:28; Admin Dose 30 MG; Start 11/28/18 at 06:00 Alendronate Sodium (Fosamax) 70 mg Mo@AC BREAKFAST PO Last administered on 12/16/18 08:53; Admin Dose 70 MG; Start 12/02/18 at 07:00 Furosemide (Lasix) 20 mg BID DIURETICS IV Last administered on 12/07/18 05:39; Admin Dose 20 MG; Start 12/03/18 at 08:00; Status Hold Miscellaneous Information 1 ea NOTE XX ; Start 12/05/18 at 15:00 Glucose (Glutose) 15 gm Q15M PRN PO DECREASED GLUCOSE; Start 12/05/18 at 15:00 Glucose (Glutose) 22.5 gm Q15M PRN PO DECREASED GLUCOSE; Start 12/05/18 at 15:00 Dextrose (D50w Syringe) 25 ml Q15M PRN IV DECREASED GLUCOSE Last administered on 12/16/18at 13:14; Admin Dose 25 ML; Start 12/05/18 at 15:00 Dextrose (D50w Syringe) 50 ml Q15M PRN IV DECREASED GLUCOSE Last administered on 12/16/18 05:26; Admin Dose 50 ML; Start 12/05/18 at 15:00 Glucagon (Glucagen) 1 mg Q15M PRN IM DECREASED GLUCOSE; Start 12/05/18 at 15:00 Glucose (Glutose) 15 gm Q15M PRN BUCCAL DECREASED GLUCOSE; Start 12/05/18 at 15:00 Calcitriol (Rocaltrol Liquid (Ped)) 0.25 mcg DAILY GTB Last administered on 12/16/18 08:50; Admin Dose 0.25 MCG; Start 12/07/18 at 09:00 Midodrine (Proamatine) 10 mg TID@,,17 GTB Last administered on 12/16/18 14:03; Admin Dose 10 MG; Start 12/07/18 at 09:00 Multivitamins (Multivitamin) 30 ml DAILY GTB Last administered on 12/16/18 08:50; Admin Dose 30 ML; Start 12/11/18 at 09:00 Ascorbic Acid (Vitamin C) 500 mg DAILY GTB Last administered on 12/16/18 08:49; Admin Dose 500 MG; Start 12/11/18 at 09:00 Folic Acid (Folic Acid) 1 mg DAILY GTB Last administered on 12/16/18 08:50; Admin Dose 1 MG; Start 12/11/18 at 09:00 Zinc Sulfate (Zinc Sulfate) 220 mg DAILY GTB Last administered on 12/16/18 08:49; Admin Dose 220 MG; Start 12/11/18 at 09:00 Methylprednisolone Sodium Succinate (Solu-Medrol) 40 mg Q12 IV Last administered on 12/16/18 08:49; Admin Dose 40 MG; Start 12/12/18 at 21:00 Insulin Glargine (Lantus) 16 units DAILY@1700 SC Last administered on 12/15/18 18:10; Admin Dose 16 UNITS; Start 12/14/18 at 17:00; Status Hold Metoclopramide HCl (Reglan) 5 mg BID IV Last administered on 12/16/18 08:49; Admin Dose 5 MG; Start 12/14/18 at 21:00 Dextrose/Sodium Chloride 1,000 ml @ 50 mls/hr Q20H IV Last administered on 12/16/18 06:47; Admin Dose 50 MLS/HR; Start 12/16/18 at 07:00 Vancomycin HCl (Vanco Iv Per Pharmacy) VANCOMYCIN PER PHARMACY PER PROTOCOL XX ; Start 12/16/18 at 12:00 Piperacillin Sod/ Tazobactam Sod 100 ml @ 200 mls/hr Q8 IVPB Last administered on 12/16/18 14:13; Admin Dose 200 MLS/HR; Start 12/16/18 at 14:00 Vancomycin HCl 250 ml @ 125 mls/hr NOW IVPB ; Start 12/16/18 at 14:00; Stop 12/16/18 at 18:00 Vancomycin/Sodium Chloride 250 ml @ 125 mls/hr Q12H IVPB ; Start 12/17/18 at 05:00 Sodium Chloride 1,000 ml @ 1,000 mls/hr Q1H ONCE IV Last administered on 12/16/18 13:56; Admin Dose 1,000 MLS/HR; Start 12/16/18 at 14:00; Stop 12/16/18 at 14:59 Dopamine HCl/ Dextrose 250 ml @ 3.3 mls/hr TITRATE IV ; Start 12/16/18 at 14:30 Assessment/Plan Hospital Course (Demo Recall) Acute on chronic hypoxemic/hypercapnic respiratory failure status post trach on the ventilator Severe sepsis and shock: Pneumonia Pleural effusion History of mitral valve replacement currently functioning normally History of most likely heart block status post permanent pacemaker ([employer]) Encephalopathy Cachexia and malnutrition History of rheumatoid arthritis History of ovarian cancer stage IV Thyroid disorder Acute renal failure: stable now Diabetes anemia dysphagia: s/p PEG 12/10/18 Thrombocytopenia Recommendations: Vent support to be continued to be managed as per pulmonary. Antibiotic management as per internal medicine pulmonary and infectious disease consultants Discussed with the family members. We will hold off on transfusions and additional any more pressors. Pain management to be continued and increase to keep the patient comfortable only which is the goal of the family at this point. CODE STATUS is DNR. Discussed with physicians. Prognosis is very poor. Family is aware instead of waiting for the glove cleaner to come NAYLA SAUL MD [facility] NAYLA SAUL MD December 16, 2018 14:34
[2018-12-16] MEDS ORDERED: morphine 2 MG INJ IV PRN (15:00)
--- NOTE | 2018-12-16 15:52 | CONS ---
Assessment/Plan Assessment/Plan Assessment/Plan (Daily) Assessment/Plan (Daily) Hospital Course (Demo Recall) 83 yo female with Vent dependent respiratory failure needs a PEG 1. Dysphasia -PEG placement done yesterday on 12/10/2018 2. Pneumonia -resp cx positive for E. Coli and Nicole albicans 3. UTI -Nicole albicans 4. Vent dependent respiratory failure -plan for trach 5. Anemia due to chronic disease -negative FOB No evidence of active bleeding 6. Diabetes mellitus 7. H/o ovarian cancer with total hysterectomy 20 years ago 8. Pacemaker status 9. H/O mitral valve replacement 10 status post G-tube placement 11. Status post tracheostomy 12. Gastroparesis 13 patient is in septic shock with severe pancytopenia Plan: Replace K, check K after replacement Hold anti coagulants Patient is tolerating feeding continue present care Monitor H&H and transfuse on as-needed basis Continue present care Case was discussed with the son Patient will be started on Reglan Antibiotic and antifungal as per ID Hematology oncology follow-up Consultation Date/Type/Reason Admit Date/Time Nov 25, 2018 at 23:59 Initial Consult Date 12/09/18 Requesting Provider: SHAUN CHRITSENSEN DO Date/Time of Note DATE: 12/16/18 TIME: 15:50 24 HR Interval Summary Subjective hx not possible: pt critical Constitutional: requiring IVF, requiring O2 Exam/Review of Systems Exam Vitals Vital Signs Date Temp Pulse Resp B/P (MAP) Pulse Ox O2 O2 Flow FiO2 Time Delivery Rate 12/16/18 130 29 100 13:40 12/16/18 99.6 97/64 (75) Mechanical 12:00 Ventilator 12/16/18 76 11:30 Intake and Output 12/15/18 12/15/18 12/16/18 1414:59 22:59 06:59 IntakeIntake Total 451.0 ml 270 ml 279.375 ml OutputOutput Total 270 ml 140 ml 180 ml BalanceBalance 181.0 ml 130 ml 99.375 ml Constitutional: non-verbal ENMT: intubated Respiratory: diminished breath sounds Extremities: normal pulses Results Result Diagram: 12/16/18 1312 12/16/18 1312 Results 24hrs Laboratory Tests Test 12/15/18 17:57 12/15/18 22:02 12/15/18 22:22 12/16/18 01:00 Bedside Glucose 85 52 L 86 56 L Test 12/16/18 01:24 12/16/18 04:36 12/16/18 05:22 12/16/18 05:45 Bedside Glucose 94 46 *L 119 White Blood Count 0.6 #L Red Blood Count 2.57 L Hemoglobin 7.5 L Hematocrit 24.0 L Mean Corpuscular Volume 93.4 Mean Corpuscular 29.2 Hemoglobin Mean Corpuscular 31.3 L Hemoglobin Concent Red Cell Distribution 20.0 H Width Platelet Count 22 #*L Mean Platelet Volume Immature Granulocytes % 0.000 L Neutrophils % Lymphocytes % Monocytes % Eosinophils % Basophils % Nucleated Red Blood 5.1 H Cells % Immature Granulocytes # 0.000 Neutrophils # Lymphocytes # Monocytes # Eosinophils # Basophils # Nucleated Red Blood Cells # Sodium Level 139 Potassium Level 3.9 Chloride Level 107 Carbon Dioxide Level 31 Anion Gap 1 L Blood Urea Nitrogen 21 H Creatinine 0.25 L Est Glomerular Filtrat Rate mL/min Glucose Level 46 #*L Calcium Level 6.6 L Test 12/16/18 08:31 12/16/18 09:55 12/16/18 13:09 12/16/18 13:12 Bedside Glucose 70 56 L Lactic Acid Level 3.9 *H 4.7 *H White Blood Count 0.2 #L Red Blood Count 2.22 L Hemoglobin 6.6 *L Hematocrit 21.9 L Mean Corpuscular Volume 98.6 Mean Corpuscular 29.7 Hemoglobin Mean Corpuscular 30.1 L Hemoglobin Concent Red Cell Distribution 20.1 H Width Platelet Count 4 #*L Mean Platelet Volume Immature Granulocytes % 0.000 L Neutrophils % Lymphocytes % Monocytes % Eosinophils % Basophils % Nucleated Red Blood 19.0 H Cells % Immature Granulocytes # 0.000 Neutrophils # Lymphocytes # Monocytes # Eosinophils # Basophils # Nucleated Red Blood Cells # Sodium Level 124 #L Potassium Level 3.8 Chloride Level 97 # Carbon Dioxide Level 19 #L Anion Gap 8 Blood Urea Nitrogen 22 H Creatinine 0.34 L Est Glomerular Filtrat Rate mL/min Glucose Level 596 #*H Calcium Level 5.4 *L Phosphorus Level 2.2 L Magnesium Level 1.9 Total Bilirubin 0.2 Direct Bilirubin 0.00 Indirect Bilirubin 0.2 Aspartate Amino 45 Transf (AST/SGOT) Alanine 30 Aminotransferase (ALT/SG PT) Alkaline Phosphatase 43 Total Protein 2.5 L Albumin 1.2 L Globulin 1.30 Albumin/Globulin Ratio 0.92 Test 12/16/18 13:39 12/16/18 14:01 Bedside Glucose 128 142 Medications Medication Current Medications Ondansetron HCl (Zofran Inj) 4 mg Q6H PRN IV NAUSEA AND/OR VOMITING; Start at 01:00 Albuterol (Ventolin Hfa) 4 puff Q4H RESP THERAPY INH Last administered on 12/16/18 08:42; Admin Dose 4 PUFF; Start 11/26/18 at 01:00 Albuterol (Ventolin Hfa) 4 puff Q2H RESP THERAPY PRN INH SHORTNESS OF BREATH Last administered on 11/28/18 01:53; Admin Dose 4 PUFF; Start 11/26/18 at 01:00 Acetaminophen (Tylenol Liquid) 650 mg Q6H PRN PO PAIN LEVEL 1-3 OR FEVER; Start 11/26/18 at 01:00 Lorazepam (Ativan) 1 mg Q2H PRN IV ANXIETY Last administered on 12/11/18 18:21; Admin Dose 1 MG; Start 11/26/18 at 01:00 Norepinephrine 250 ml @ 1.875 mls/ hr TITRATE IV Last administered on 12/16/18 01:49; Admin Dose 3.75 MLS/HR; Start 11/26/18 at 09:00 Insulin Aspart (Novolog Insulin Pen) NOVOLOG *MILD* ALGORI... Q4 SC Last administered on 12/14/18 12:46; Admin Dose 1 UNIT; Start 11/26/18 at 13:00 Phenylephrine HCl 40 mg/Dextrose 250 ml @ 37.5 mls/hr TITRATE IV Last administered on 12/16/18 15:29; Admin Dose 112.5 MLS/HR; Start 11/26/18 at 11:00 Fentanyl 100 ml @ 2.5 mls/hr TITRATE IV Last administered on 12/16/18 14:43; Admin Dose 7.5 MLS/HR; Start 11/26/18 at 13:00 IV Flush (NS 10 ml) 10 ml PRN PRN IV IV PROTOCOL; Start 11/26/18 at 15:00 Lansoprazole (Prevacid) 30 mg DAILY@06 GTB Last administered on 12/16/18 05:28; Admin Dose 30 MG; Start 11/28/18 at 06:00 Alendronate Sodium (Fosamax) 70 mg Mo@AC BREAKFAST PO Last administered on 12/16/18at 08:53; Admin Dose 70 MG; Start 12/02/18 at 07:00 Furosemide (Lasix) 20 mg BID DIURETICS IV Last administered on 12/07/18at 05:39; Admin Dose 20 MG; Start 12/03/18 at 08:00; Status Hold Miscellaneous Information 1 ea NOTE XX ; Start 12/05/18 at 15:00 Glucose (Glutose) 15 gm Q15M PRN PO DECREASED GLUCOSE; Start 12/05/18 at 15:00 Glucose (Glutose) 22.5 gm Q15M PRN PO DECREASED GLUCOSE; Start 12/05/18 at 15:00 Dextrose (D50w Syringe) 25 ml Q15M PRN IV DECREASED GLUCOSE Last administered on 12/16/18at 13:14; Admin Dose 25 ML; Start 12/05/18 at 15:00 Dextrose (D50w Syringe) 50 ml Q15M PRN IV DECREASED GLUCOSE Last administered on 12/16/18at 05:26; Admin Dose 50 ML; Start 12/05/18 at 15:00 Glucagon (Glucagen) 1 mg Q15M PRN IM DECREASED GLUCOSE; Start 12/05/18 at 15:00 Glucose (Glutose) 15 gm Q15M PRN BUCCAL DECREASED GLUCOSE; Start 12/05/18 at 15:00 Calcitriol (Rocaltrol Liquid (Ped)) 0.25 mcg DAILY GTB Last administered on 12/16/18at 08:50; Admin Dose 0.25 MCG; Start 12/07/18 at 09:00 Midodrine (Proamatine) 10 mg TID@,,17 GTB Last administered on 12/16/18at 14:03; Admin Dose 10 MG; Start 12/07/18 at 09:00 Multivitamins (Multivitamin) 30 ml DAILY GTB Last administered on 12/16/18at 08:50; Admin Dose 30 ML; Start 12/11/18 at 09:00 Ascorbic Acid (Vitamin C) 500 mg DAILY GTB Last administered on 12/16/18at 08:49; Admin Dose 500 MG; Start 12/11/18 at 09:00 Folic Acid (Folic Acid) 1 mg DAILY GTB Last administered on 12/16/18 08:50; Admin Dose 1 MG; Start 12/11/18 at 09:00 Zinc Sulfate (Zinc Sulfate) 220 mg DAILY GTB Last administered on 12/16/18 08:49; Admin Dose 220 MG; Start 12/11/18 at 09:00 Methylprednisolone Sodium Succinate (Solu-Medrol) 40 mg Q12 IV Last administered on 12/16/18 08:49; Admin Dose 40 MG; Start 12/12/18 at 21:00 Insulin Glargine (Lantus) 16 units DAILY@1700 SC Last administered on 12/15/18 18:10; Admin Dose 16 UNITS; Start 12/14/18 at 17:00; Status Hold Metoclopramide HCl (Reglan) 5 mg BID IV Last administered on 12/16/18 08:49; Admin Dose 5 MG; Start 12/14/18 at 21:00 Dextrose/Sodium Chloride 1,000 ml @ 50 mls/hr Q20H IV Last administered on 12/16/18at 06:47; Admin Dose 50 MLS/HR; Start 12/16/18 at 07:00 Vancomycin HCl (Vanco Iv Per Pharmacy) VANCOMYCIN PER PHARMACY PER PROTOCOL XX ; Start 12/16/18 at 12:00 Piperacillin Sod/ Tazobactam Sod 100 ml @ 200 mls/hr Q8 IVPB Last administered on 12/16/18at 14:13; Admin Dose 200 MLS/HR; Start 12/16/18 at 14:00 Vancomycin HCl 250 ml @ 125 mls/hr NOW IVPB ; Start 12/16/18 at 14:00; Stop 12/16/18 at 18:00 Vancomycin/Sodium Chloride 250 ml @ 125 mls/hr Q12H IVPB ; Start 12/17/18 at 05:00 Dopamine HCl/ Dextrose 250 ml @ 3.3 mls/hr TITRATE IV ; Start 12/16/18 at 14:30 Caspofungin 50 mg/ Sodium Chloride 250 ml @ 250 mls/hr Q24H IVPB ; Start 12/17/18 at 17:00 Caspofungin 70 mg/ Sodium Chloride 250 ml @ 250 mls/hr ONCE ONCE IVPB ; Start 12/16/18 at 17:00; Stop 12/16/18 at 17:59 Morphine Sulfate (morphine) 1 mg Q2H PRN IV SEVERE PAIN LEVEL 7-10; Start 12/16/18 at 15:00 GOMEZ BARBA MD December 16, 2018 15:52
[2018-12-16] MEDS ORDERED: CASPOFUNGIN 70 MG in SOD CHLORIDE 0.9% 250 ML IVPB ONE (17:00)
--- NOTE | 2018-12-16 17:08 | PN ---
Date/Time of Note Date/Time of Note DATE: 12/16/18 TIME: 17:07 Assessment/Plan Lines/Catheters IV Catheter Type (from Nrsg): PICC Line Das in Place (from Nrsg): Yes Assessment/Plan Assessment/Plan Resp Failure SP tracheostomy trach site clean will continue trach care vent support Subjective 24 Hr Interval Summary Constitutional: no complaints, improved, ambulates, BM, flatus, urine output Pain Control: mild Exam/Review of Systems Vital Signs Vitals Vital Signs Date Temp Pulse Resp B/P (MAP) Pulse Ox O2 O2 Flow FiO2 Time Delivery Rate 12/16/18 100 16:09 12/16/18 115 16:00 12/16/18 12.0 16:00 12/16/18 23 15:45 12/16/18 53/36 (42) 15:30 12/16/18 Mechanical 15:00 Ventilator 12/16/18 99.6 12:00 12/16/18 76 11:30 Intake and Output 12/15/18 12/15/18 12/16/18 1515:00 23:00 07:00 IntakeIntake Total 348.5 ml 270 ml 436.875 ml OutputOutput Total 265 ml 130 ml 185 ml BalanceBalance 83.5 ml 140 ml 251.875 ml Exam Eyes: nl conjunctiva, EOMI, nl lids, nl sclera ENMT: nl external ears & nose, nl lips & teeth, nl nasal mucosa & septum, mucosa pink and moist Neck: supple, non-tender Respiratory: clear to auscultation, normal air movement Cardiovascular: regular rate and rhythm, nl pulses Musculoskeletal: nl extremities to inspection, nl gait and stance Results Result Diagram: 12/16/18 1312 12/16/18 1312 KIMBERLEY LARIOS MD December 16, 2018 17:08
--- NOTE | 2018-12-16 21:40 | CONS ---
Assessment/Plan Assessment/Plan Hospital Course (Demo Recall) Anemia. N-CYTIC WITH INCREASED RDW Continue to monitor hemoglobin and hematocrit levels. W-UP C/W ACD STOOL NEG FOR OB Thrombocytopenia. IN PT WITH SEPSIS EXPOSED TO MULTIPLE MEDS INCLUDING HEPARIN Etiology is unclear, possibly due to recent Lovenox use. Lovenox. - ON HOLD HIT antibody. - P DIC PROFILE- NEG History of ovarian cancer stage IV, currently in remission. The patient is status post chemotherapy and major debulking surgeries. BECCA D/W DAUGHTER Sepsis secondary to pneumonia, bacteremia and fungal urinary tract infection. Ventilator-dependent respiratory failure. The patient is status post trach. Dysphagia, status post PEG. Continue tube feeding. Volume overload Hypokalemia. Hypernatremia, etiology is secondary to hypoglycemia and hypertonic fluid. Metabolic alkalemia, improving. Left upper extremity swelling. Doppler ultrasounds negative for deep vein thrombosis. Co ntinue to monitor. Continue to elevate arm. Nonoliguric acute kidney injury. History of arrhythmia, status post pacemaker. Diabetes. History of hypothyroidism. History of arthritis. Gastrointestinal and deep vein thrombosis prophylaxis. [facility] Consultation Date/Type/Reason Admit Date/Time Nov 25, 2018 at 23:59 Initial Consult Date 12/13/18 Type of Consult [facility] Requesting Provider: SHAUN CHRISTENSEN DO Date/Time of Note DATE: 12/16/18 TIME: 21:39 24 HR Interval Summary Free Text/Dictation all noted d/w family Exam/Review of Systems Exam Vitals Vital Signs Date Temp Pulse Resp B/P (MAP) Pulse Ox O2 O2 Flow FiO2 Time Delivery Rate 12/16/18 0 0 16:15 12/16/18 100 16:09 12/16/18 12.0 16:00 12/16/18 38/26 (30) 16:00 12/16/18 Mechanical 15:00 Ventilator 12/16/18 99.6 12:00 12/16/18 76 11:30 Intake and Output 12/15/18 12/15/18 12/16/18 1515:00 23:00 07:00 IntakeIntake Total 348.5 ml 270 ml 436.875 ml OutputOutput Total 265 ml 130 ml 185 ml BalanceBalance 83.5 ml 140 ml 251.875 ml Exam General: Elderly female cachectic looking appears to be older than stated age status post trach on the vent HEENT: NC/AT. pupils are equal. round. NECKs/p trach . no stridor. CV: RRR. systolic murmur; no gallop or rubs. PULM: no wheezing + rhonchi more on the right GI: SOFT, NT, ND, no rebound or guarding Extremity: 1+ B/L ANKLE edema. no clubbing. neuro: lethargic Psych: calm rectal: deferred : normal Results Result Diagram: 12/16/18 1312 12/16/18 1312 Results 24hrs Laboratory Tests Test 12/15/18 22:02 12/15/18 22:22 12/16/18 01:00 12/16/18 01:24 Bedside Glucose 52 L 86 56 L 94 Test 12/16/18 04:36 12/16/18 05:22 12/16/18 05:45 12/16/18 08:31 White Blood Count 0.6 #L Red Blood Count 2.57 L Hemoglobin 7.5 L Hematocrit 24.0 L Mean Corpuscular Volume 93.4 Mean Corpuscular 29.2 Hemoglobin Mean Corpuscular 31.3 L Hemoglobin Concent Red Cell Distribution 20.0 H Width Platelet Count 22 #*L Mean Platelet Volume Immature Granulocytes % 0.000 L Neutrophils % Lymphocytes % Monocytes % Eosinophils % Basophils % Nucleated Red Blood 5.1 H Cells % Immature Granulocytes # 0.000 Neutrophils # Lymphocytes # Monocytes # Eosinophils # Basophils # Nucleated Red Blood Cells # Sodium Level 139 Potassium Level 3.9 Chloride Level 107 Carbon Dioxide Level 31 Anion Gap 1 L Blood Urea Nitrogen 21 H Creatinine 0.25 L Est Glomerular Filtrat Rate mL/min Glucose Level 46 #*L Calcium Level 6.6 L Bedside Glucose 46 *L 119 70 Test 12/16/18 09:55 12/16/18 13:09 12/16/18 13:12 12/16/18 13:39 Lactic Acid Level 3.9 *H 4.7 *H Bedside Glucose 56 L 128 White Blood Count 0.2 #L Red Blood Count 2.22 L Hemoglobin 6.6 *L Hematocrit 21.9 L Mean Corpuscular Volume 98.6 Mean Corpuscular 29.7 Hemoglobin Mean Corpuscular 30.1 L Hemoglobin Concent Red Cell Distribution 20.1 H Width Platelet Count 4 #*L Mean Platelet Volume Immature Granulocytes % 0.000 L Neutrophils % Segmented Neutrophils 29 L % (Manual) Band Neutrophils % 38 H (Manual) Lymphocytes % Lymphocytes % (Manual) 3 L Monocytes % Monocytes % (Manual) 16 H Eosinophils % Eosinophils % (Manual) 1 Basophils % Metamyelocytes % 8 H (manual) Myelocytes % (Manual) 4 H Promyelocytes % (Manual) 1 H Nucleated Red Blood 13 H Cells % Immature Granulocytes # 0.000 Neutrophils # Neutrophils # (Manual) 0.1 L Band Neutrophils # 0.0 Lymphocytes (Manual) 0.0 L Lymphocytes # 0.0 L Monocytes # 0.0 L Monocytes # (Manual) 0.0 L Eosinophils # 0.0 Basophils # Metamyelocytes # 0.0 Myelocytes # 0.0 Promyelocytes # 0.0 Nucleated Red Blood Cells # Sodium Level 124 #L Potassium Level 3.8 Chloride Level 97 # Carbon Dioxide Level 19 #L Anion Gap 8 Blood Urea Nitrogen 22 H Creatinine 0.34 L Est Glomerular Filtrat Rate mL/min Glucose Level 596 #*H Calcium Level 5.4 *L Phosphorus Level 2.2 L Magnesium Level 1.9 Total Bilirubin 0.2 Direct Bilirubin 0.00 Indirect Bilirubin 0.2 Aspartate Amino 45 Transf (AST/SGOT) Alanine 30 Aminotransferase (ALT/SG PT) Alkaline Phosphatase 43 Total Protein 2.5 L Albumin 1.2 L Globulin 1.30 Albumin/Globulin Ratio 0.92 Test 12/16/18 14:01 Bedside Glucose 142 JANNA ROCHE MD December 16, 2018 21:40
[2018-12-17] MEDS ORDERED: VANCOMYCIN 750 MG (PMX) 250 ML IVPB SCH (05:00)
[2018-12-17] MEDS ORDERED: CASPOFUNGIN 50 MG in SOD CHLORIDE 0.9% 250 ML IVPB SCH (17:00)
== END 2018-12-16 16:32 | disposition expired | DRG 4 ==
LOC: ICU 23:59
PROVIDERS: ADMIT Internal Medicine; ATTEND Internal Medicine
PROC: 5A1955Z Respiratory Ventilation, Greater than 96 Consecutive Hours (ICD-10-PCS; 2018-11-26)
PROC: 02HV33Z Insertion of Infusion Device into Superior Vena Cava, Percutaneous Approach (ICD-10-PCS; 2018-11-26)
PROC: 0DH63UZ Insertion of Feeding Device into Stomach, Percutaneous Approach (ICD-10-PCS; 2018-12-10)
PROC: 0B110F4 Bypass Trachea to Cutaneous with Tracheostomy Device, Open Approach (ICD-10-PCS; principal; 2018-12-12 18:00)
DX: A41.9 Sepsis, unspecified organism (principal); R65.21 Severe sepsis with septic shock; J18.9 Pneumonia, unspecified organism; J96.22 Acute and chronic respiratory failure with hypercapnia; J96.21 Acute and chronic respiratory failure with hypoxia; J90 Pleural effusion, not elsewhere classified; G93.40 Encephalopathy, unspecified; R64 Cachexia; E46 Unspecified protein-calorie malnutrition; N17.9 Acute kidney failure, unspecified; E87.4 Mixed disorder of acid-base balance; Z99.11 Dependence on respirator [ventilator] status; N39.0 Urinary tract infection, site not specified; E27.40 Unspecified adrenocortical insufficiency; D61.818 Other pancytopenia; E87.2 Acidosis; E87.3 Alkalosis; E87.0 Hyperosmolality and hypernatremia; I50.9 Heart failure, unspecified; E87.5 Hyperkalemia; M06.9 Rheumatoid arthritis, unspecified; E11.9 Type 2 diabetes mellitus without complications; D64.9 Anemia, unspecified; Z95.0 Presence of cardiac pacemaker; Z95.2 Presence of prosthetic heart valve; Z68.21 Body mass index [BMI] 21.0-21.9, adult; E03.9 Hypothyroidism, unspecified; Z85.43 Personal history of malignant neoplasm of ovary; I25.10 Atherosclerotic heart disease of native coronary artery without angina pectoris; E87.70 Fluid overload, unspecified; J44.9 Chronic obstructive pulmonary disease, unspecified; R13.10 Dysphagia, unspecified; E87.6 Hypokalemia
CPT/HCPCS: 31500; 36569; 36600; 71045; 71250; 76937; 80048; 80053; 80076; 80202; 81001; 81003; 82043; 82270; 82533; 82607; 82728; 82746; 82803; 82962; 83036; 83540; 83605; 83615; 83735; 84100; 84145; 84155; 84300; 84443; 84484; 84560; 85025; 85045; 85049; 85362; 85378; 85384; 85610; 85651; 85670; 85730; 86022; 86850; 86900; 86901; 87070; 87081; 87086; 89220; 93005; 93306; 93971; 94002; 94003; 94640; 94770; 97110; 97162; 97530; C1769; C9113; J0610; J0690; J0692; J1120; J1265; J1650; J1815; J1940; J2060; J2270; J2405; J2543; J2765; J2920; J2930; J3010; J3370; J3475; J3480; J7030; J7040; J7042; J7050; J7070; J7120